=== PATIENT | male | born 1950 | race African-American/Black ===

== ENCOUNTER 2022-01-05 16:28 | Emergency (ER) | payer OTHER ==
[2022-01-05 16:40] LABS: Glucose,Whole Blood 56 mg/dL (70-110)
[2022-01-05 16:45] VITALS: BP 146/76; PULSE 68; RESP 16; TEMP 98
== END 2022-01-05 16:47 | disposition left against medical advice (07) ==
LOC: EC 16:28 → SUPCPDRO 16:28 → EC 16:47
DX: Z53.21 Procedure and treatment not carried out due to patient leaving prior to being seen by health care provider (principal)
CPT/HCPCS: 36415; 99499

== ENCOUNTER → 2022-01-24 | Outpatient (CLI) | payer OTHER ==
--- NOTE | 2022-01-26 08:50 | US ---
EXAMINATION TYPE: US arterial LE single level DATE OF EXAM: 01/24/2022 3:14 PM CLINICAL HISTORY: BLE, M79.673 PAIN IN UNSPECIFIED FOOT. pain after walking. History of hypertension and hyperlipidemia. History of diabetes. Doppler Waveforms: Right: Predominantly monophasic Left: Predominantly biphasic Pulse Volume Recording: Pressure Gradients: Ankle-Brachial Indices: Right: NC Left: NC Toe Brachial Indices: Right: 0.39 Left: 0.51 IMPRESSION: Loss of phasicity. Diminished TBI values bilaterally. At least mild peripheral arterial disease in bilateral feet is present . Further workup and follow-up advised.
== END | disposition home or self-care (01) ==
LOC: RADUSWWP 14:07
DX: I70.203 Unspecified atherosclerosis of native arteries of extremities, bilateral legs (principal); I10 Essential (primary) hypertension; E78.5 Hyperlipidemia, unspecified
CPT/HCPCS: 93922

== ENCOUNTER → 2022-04-26 | Day surgery (SDC) | payer OTHER ==
[~2022-04-26] MED LIST: HEPARIN SODIUM,PORCINE 100 UNIT/ML 5 ML VIAL IV ONE; IOPAMIDOL-370 50ML BTL INJ ONE
[2022-04-26 11:35] LABS: Glucose,Whole Blood 146 mg/dL (70-110)
[2022-04-26 11:40] VITALS: BP 210/96; PULSE 90; RESP 16; TEMP 97.7
--- NOTE | 2022-04-26 12:52 | IR ---
Fluoroscopic portogram([facility]). HISTORY: Device malfunction. The patient presented to the CVL with a Caba needle within the port. Preliminary fluoroscopy demonst rated the catheter to be intact. 0.1 minutes of fluoroscopy. One image submitted. Total DAP1.55Gy. cm2. Total air kerma 4.69mGy. IMPRESSION: 1. No obstruction or extravasation. See above.
== END ==
LOC: CATHCVL 11:05
PROVIDERS: ATTEND Radiology Diagnostic Radiology
DX: T82.598A Other mechanical complication of other cardiac and vascular devices and implants, initial encounter (principal); E11.51 Type 2 diabetes mellitus with diabetic peripheral angiopathy without gangrene; Z79.4 Long term (current) use of insulin; J44.9 Chronic obstructive pulmonary disease, unspecified; E78.5 Hyperlipidemia, unspecified; M10.9 Gout, unspecified; Z94.0 Kidney transplant status; Z94.4 Liver transplant status; I74.09 Other arterial embolism and thrombosis of abdominal aorta; E55.9 Vitamin D deficiency, unspecified; B19.20 Unspecified viral hepatitis C without hepatic coma; Z90.49 Acquired absence of other specified parts of digestive tract; Z98.890 Other specified postprocedural states; Z83.3 Family history of diabetes mellitus; Z80.8 Family history of malignant neoplasm of other organs or systems; Z87.891 Personal history of nicotine dependence; Z79.82 Long term (current) use of aspirin; Z79.02 Long term (current) use of antithrombotics/antiplatelets; Z79.899 Other long term (current) drug therapy; Z79.84 Long term (current) use of oral hypoglycemic drugs; Z88.5 Allergy status to narcotic agent; Z88.8 Allergy status to other drugs, medicaments and biological substances
CPT/HCPCS: 36598; 36561; J1642; Q9967

== ENCOUNTER → 2022-12-14 | Outpatient (CLI) | payer OTHER ==
--- NOTE | 2022-12-15 00:07 | CT ---
EXAMINATION TYPE: CT angio abd aorta w/Runoff DATE OF EXAM: 12/14/2022 COMPARISON: None. HISTORY: Pulmonary valve disorder CT DLP: 1441.40 mGycm, Automated Exposure Control for Dose Reduction was Utilized. CONTRAST: CTA scan of the abdomen and pelvis with bilateral lower extremity runoff performed without oral and w ithout and with IV Contrast, patient injected with 80 mL of Isovue 370. Three-D reconstructed images are created on an independent workstation and reviewed. FINDINGS: VASCULAR: Noncalcified images show mild to moderate peripheral plaque in the abdominal aorta with mor e moderate to severe plaque in the iliac arteries and severe calcified plaque in smaller vessels. Pre sence of severe calcified plaque limits evaluation for accurate grading of stenosis. Significant narrowing at the celiac artery origin sagittal image 70 series 15. The moderate periphera l calcified plaque at the SMA without significant stenosis. Patent YARI is seen. Mild to moderate calc ified plaque right renal artery. More severe calcified plaque at proximal left renal artery. Cannot e xclude significant stenosis at this level. No AAA. No significant stenosis in the abdominal aorta. Mo derate to severe mixed plaque in the common and external iliac arteries bilaterally without significa nt focal stenosis. More moderate to severe calcified plaque common femoral artery bilaterally without significant stenos is. There is more mild to moderate peripheral plaque in the right superficial femoral artery. There i s focal significant stenosis and/or complete occlusion near image 266 series 5 with some reconstituti on and then complete occlusion over a longer segment in the proximal superficial femoral artery. Ther e is an severe calcified plaque along the superficial femoral artery with areas of significant stenos is extending into the popliteal artery. Similar severe calcified plaque along the left superficial femoral artery with focal area of signific ant stenosis in the distal left superficial femoral artery axial image 356 noted. Severe plaque exten ds into the popliteal artery. Severe calcified plaque with three-vessel flow in the mid legs bilaterally and two-vessel flow in the distal legs bilaterally is seen. LUNG BASES: There is 1.3 cm calcified nodule or benign granuloma right lower lobe axial image 15. The re is 4 mm peripheral noncalcified nodule right lower lobe axial image 14. There is 3 mm calcified pe ripheral right lobe nodule axial image 28. LIVER/GB: Central pneumobilia. Cholecystectomy clips are present. PANCREAS: Mild to moderate generalized atrophy. SPLEEN: No significant abnormality is seen. ADRENALS: No significant abnormality is seen. KIDNEYS: There is small size and cortical thinning to the osage kidneys. There is anterior right pel shayna renal transplant with maintained cortical medullary differentiation. BOWEL: No significant abnormality is seen. PROSTATE/SEMINAL VESICLES: No gross abnormality seen. LYMPH NODES: No greater than 1cm abdominal or pelvic lymph nodes are appreciated. OSSEOUS STRUCTURES: Fixating nails in the bilateral proximal femurs are present. There is moderate to severe disc space narrowing second disc phenomenon at L4-L5 level. There is grade 1 retrolisthesis L 4 on L5.. OTHER: No significant additional abnormality is seen. IMPRESSION: 1. Severe small vessel calcified atherosclerotic change consistent with long-standing end-stage medic al renal disease makes evaluation suboptimal. There is significant focal stenosis in the distal left superficial femoral artery. There are more prominent areas of significant focal stenosis and areas of total occlusion in the right superficial femoral artery noted.
== END | disposition home or self-care (01) ==
LOC: RADCTMAIN 08:47
PROVIDERS: ATTEND Surgery
DX: I70.213 Atherosclerosis of native arteries of extremities with intermittent claudication, bilateral legs (principal)
CPT/HCPCS: 75635; Q9967

== ENCOUNTER → 2023-04-03 | Day surgery (SDC) | payer OTHER ==
[~2023-04-03] MED LIST changes: +ALPRAZolam 0.25 MG TAB PO PRN; +ASPIRIN 325 MG TAB PO PRN; +HEPARIN SODIUM,PORCINE (1 ML) 2,500 UNIT in SODIUM CHLORIDE 0.9% 250 ML IRRIGATION PRN; +HEPARIN SODIUM,PORCINE 10,000 UNIT in SODIUM CHLORIDE 0.9% 1,000 ML IRRIGATION PRN; -HEPARIN SODIUM,PORCINE 100 UNIT/ML 5 ML VIAL IV ONE; +IOPAMIDOL-370 100ML BTL INJ ONE; -IOPAMIDOL-370 50ML BTL INJ ONE; +LIDOCAINE 1% INJ 10MG/ML (30 ML VIAL-PF) SQ ONE; +MIDAZOLAM 2 MG/2 ML VIAL IVP ONE; +SODIUM CHLORIDE 0.9% 1,000 ML in EMPTY BAG 1 BAG IV ONE; +SODIUM CHLORIDE 0.9% 500 ML 500 ML IV ONE; +ZOLPIDEM 5 MG TAB PO PRN; +fentaNYL (PF) 50 MCG/1 ML VIAL IVP ONE; +fentaNYL (PF) 50 MCG/ML 2 ML AMP ONE; +hydrALAZINE HCL 20 MG/ML 1 ML VIAL IVP STA; +hydrALAZINE HCL 20 MG/ML 1 ML VIAL ONE
[2023-04-03 06:30] LABS: Glucose,Whole Blood 178 mg/dL (70-110)
[2023-04-03 06:45] LABS: Basophils % (A) 1 %; Eosinophils # (A) 0.2 k/uL (0-0.7); Eosinophils % (A) 5 %; HCT 40.4 % (39.0-53.0); HGB 12.7 gm/dL (13.0-17.5); Hypochromasia Slight; Lymphocytes # (A) 1.2 k/uL (1.0-4.8); Lymphocytes % (A) 28 %; MCH 30.1 pg (25.0-35.0); MCHC 31.5 g/dL (31.0-37.0); MCV 95.5 fL (80.0-100.0); Mean Platelet Volume 7.3; Monocytes # (A) 0.2 k/uL (0-1.0); Monocytes % (A) 5 %; Neutrophils # (A) 2.7 k/uL (1.3-7.7); Neutrophils % (A) 61 %; Platelet Count 158 k/uL (150-450); RBC 4.23 m/uL (4.30-5.90); RDW 13.6 % (11.5-15.5); WBC 4.5 k/uL (3.8-10.6)
[2023-04-03 07:06] VITALS: TEMP 98.2
[2023-04-03 08:02] LABS: African American GFR (CKD) 39 (>60 ml/min/1.73 sqM); Anion Gap 14 mmol/L; Blood Urea Nitrogen 36 mg/dL (9-20); Calcium 8.9 mg/dL (8.4-10.2); Carbon Dioxide 25 mmol/L (22-30); Chloride 104 mmol/L (98-107); Glucose 190 mg/dL (74-99); Non-African American GFR(CKD) 34 (>60 ml/min/1.73 sqM); Sodium 143 mmol/L (137-145)
--- NOTE | 2023-04-03 11:11 | IR ---
EXAMINATION TYPE: IR angio abdominal w runoff DATE OF EXAM: 04/03/2023 FLUOROSCOPY Leg pain, 19.1m/19.0 mGycm2 DAP, Lt gr angioseal. 111 images provided.
--- NOTE | 2023-04-03 12:12 | P.OP ---
Date of Procedure: 04/03/23 Preoperative Diagnosis: 1: Right superficial femoral artery occlusion with secondary lifestyle limiting right calf claudication. Postoperative Diagnosis: Same, PLUS 50-60% stenosis right common femoral artery. Procedure(s) Performed: 1: Ultrasound-guided cannulation left common femoral artery. 2: Selective catheterization contralateral femoral artery. 3: Right femoral angiogram. Anesthesia: local (With IV sedation.) Usability Engineer #1: Gino Buenrostro Estimated Blood Loss (ml): 20 Urine output (ml): 0 Pathology: none sent Condition: stable Disposition: no change Indications for Procedure: Patient is a 72-year-old male with history of bilateral calf claudication which severely limits his activities of daily living. Physical examination revealed femoral pulses to be intact bilaterally while the popliteal, DP and PT pulses are absent on the right. He had undergone CT angiogram of the abdominal, pelvic and lower extremity vessels. This demonstrated approximately 60 mm occlusion of the right superficial femoral artery. This was felt to be amenable to percutaneous intervention. We discussed percutaneous revascularization and the possibility of inability to complete the procedure versus surgical bypass. Patient wished procedure with attempt at percutaneous intervention. The procedure, risk and benefits were discussed and all questions were answered to patient's satisfaction. Consent form was signed. Description of Procedure: Patient was brought to the special procedure suite. Both groins were sterilely prepped and draped in usual manner. Patient did receive intravenously administered and Versed for moderate conscious sedation purposes. Ultrasound was utilized to identify the left common femoral artery. 1% Xylocaine was utilized for local anesthesia is overlying the left common femoral artery. Through this anesthetized area with the aid of ultrasound a micropuncture needle was utilized to cannulate the artery. Once cannulated Softip guidewire is advanced into the iliac system. The needle was withdrawn and a micropuncture sheath and dilator advanced over the guidewire. Guidewire and dilator withdrawn and a 0.035 inch guidewire was advanced through the dilator. The dilator was withdrawn and a 6-Italian sheath was advanced over the dilator. Guidewire and catheter combination were utilized to select the right common femoral artery. Right femoral angiogram was performed. This demonstrated proximal a 50-60% stenosis of the right common femoral artery. Additionally this demonstrated occluded right superficial femoral artery. A stiff Glidewire was advanced through the catheter and catheter was withdrawn as was the 6-Italian sheath and exchanged for 7-Italian up and over catheter. Utilizing multiple guidewire and catheter combinations including quick cross in multiple diameter and types of guidewires we were unable to successfully cross the lesion in the procedure was abandoned. Was felt the patient would be best served from attempted atherectomy from a pedal pulse or possibly a surgical bypass. Patient tolerated the procedure well. The sheath was withdrawn and the puncture wound closed with a Angio-Seal device. Total fluoroscopy time: 19.1 minutes. Total moderate conscious sedation time: 83 minutes. Plan - Discharge Summary Discharge Rx Participant: No New Discharge Prescriptions: No Action Timolol Maleate/Pf [Timoptic 0.25% Ocudose] 1 drop BOTH EYES BID Tacrolimus [Prograf] 2 mg PO Q12H Aspirin 81 mg PO QAM ursodioL [Ursodiol] 300 mg PO TID lamiVUDine [Epivir] 100 mg PO QAM carvediloL [Coreg] 6.25 mg PO BID Latanoprost [Latanoprost 0.005%] 1 drop BOTH EYES HS INSULIN ASPART (NovoLOG) [NovoLOG (formulary)] 0 unit SQ ACHS Atorvastatin Calcium [Lipitor] 160 mg PO HS Stool Softner 1 tab PO DAILY PRN PRN Reason: Constipation Insulin Glargine,Hum.rec.anlog [Lantus Solostar Pen] 30 units SQ HS Acetaminophen [Tylenol] 325 mg PO Q6H PRN PRN Reason: Pain hydrALAZINE HCL 75 mg PO TID predniSONE 2 mg PO QAM mycophenolate mofetiL [Cellcept] 250 mg PO BID Omeprazole 20 mg PO QAM NIFEdipine [Adalat CC] 60 mg PO BID Calcium Carbonate/Vitamin D3 [Calcium 500 mg-Vit D3 5 mcg (200 Unit)] 1.5 tab PO QAM allopurinoL 100 mg PO QAM Magnesium 500 mg PO QAM Discharge Medication List Timolol Maleate/Pf [Timoptic 0.25% Ocudose] 1 drop BOTH EYES BID 07/05/15 [History] Aspirin 81 mg PO QAM 04/21/22 [History] Atorvastatin Calcium [Lipitor] 160 mg PO HS 04/21/22 [History] Calcium Carbonate/Vitamin D3 [Calcium 500 mg-Vit D3 5 mcg (200 Unit)] 1.5 tab PO QAM 04/21/22 [History] INSULIN ASPART (NovoLOG) [NovoLOG (formulary)] 0 unit SQ ACHS 04/21/22 [History] Latanoprost [Latanoprost 0.005%] 1 drop BOTH EYES HS 04/21/22 [History] NIFEdipine [Adalat CC] 60 mg PO BID 04/21/22 [History] Omeprazole 20 mg PO QAM 04/21/22 [History] Tacrolimus [Prograf] 2 mg PO Q12H 04/21/22 [History] carvediloL [Coreg] 6.25 mg PO BID 04/21/22 [History] hydrALAZINE HCL 75 mg PO TID 04/21/22 [History] lamiVUDine [Epivir] 100 mg PO QAM 04/21/22 [History] mycophenolate mofetiL [Cellcept] 250 mg PO BID 04/21/22 [History] predniSONE 2 mg PO QAM 04/21/22 [History] ursodioL [Ursodiol] 300 mg PO TID 04/21/22 [History] Acetaminophen [Tylenol] 325 mg PO Q6H PRN 03/29/23 [History] Insulin Glargine,Hum.rec.anlog [Lantus Solostar Pen] 30 units SQ HS 03/29/23 [History] Magnesium 500 mg PO QAM 03/29/23 [History] Stool Softner 1 tab PO DAILY PRN 03/29/23 [History] allopurinoL 100 mg PO QAM 03/29/23 [History] Follow up Appointment(s)/Referral(s): Gino Buenrostro DO [Doctor of Osteopathic Medicine] - 04/20/23 9:30 am Patient Instructions/Handouts: Moderate Sedation (DC), Angiogram (DC), Angio- Seal (DC) Activity/Diet/Wound Care/Special Instructions: No lifting/pushing/pulling greater than 10lbs for at least 3 days. Avoid frequent use of full flight of stairs for 3 days. Remove dressing from left groin tomorrow morning. No need to re-dress. You may shower tomorrow after dressing removal. No prolonged soaking for 3 days (such as swim or tub). You may drive Wed.
[2023-04-03 17:33] VITALS: BP 203/91; PULSE 64; RESP 16
== END ==
LOC: CATHCVL 05:47
PROVIDERS: ATTEND Surgery
DX: I70.211 Atherosclerosis of native arteries of extremities with intermittent claudication, right leg (principal); I77.1 Stricture of artery; I48.91 Unspecified atrial fibrillation; K74.60 Unspecified cirrhosis of liver; E11.22 Type 2 diabetes mellitus with diabetic chronic kidney disease; I12.0 Hypertensive chronic kidney disease with stage 5 chronic kidney disease or end stage renal disease; N18.6 End stage renal disease; M10.9 Gout, unspecified; K75.9 Inflammatory liver disease, unspecified; E78.5 Hyperlipidemia, unspecified; Z79.4 Long term (current) use of insulin; Z79.82 Long term (current) use of aspirin; Z79.899 Other long term (current) drug therapy
CPT/HCPCS: 36247; 75710; 76937; 80048; 85025; C1894; C1760; C1769 ×6; C1887 ×2; J2250; J0360; J2001; Q9967; J3010

== ENCOUNTER 2023-05-31 05:42 | Inpatient (IN) | payer OTHER ==
[2023-05-25 14:24] VITALS: BMI 26.7
[~2023-05-31 05:42] MED LIST changes: -ALPRAZolam 0.25 MG TAB PO PRN; -ASPIRIN 325 MG TAB PO PRN; -HEPARIN SODIUM,PORCINE (1 ML) 2,500 UNIT in SODIUM CHLORIDE 0.9% 250 ML IRRIGATION PRN; -HEPARIN SODIUM,PORCINE 10,000 UNIT in SODIUM CHLORIDE 0.9% 1,000 ML IRRIGATION PRN; -IOPAMIDOL-370 100ML BTL INJ ONE; +LIDOCAINE 1% (10MG/ML) FOR IV START INTRADERMA PRN; -LIDOCAINE 1% INJ 10MG/ML (30 ML VIAL-PF) SQ ONE; -MIDAZOLAM 2 MG/2 ML VIAL IVP ONE; -SODIUM CHLORIDE 0.9% 1,000 ML in EMPTY BAG 1 BAG IV ONE; -SODIUM CHLORIDE 0.9% 500 ML 500 ML IV ONE; -ZOLPIDEM 5 MG TAB PO PRN; -fentaNYL (PF) 50 MCG/1 ML VIAL IVP ONE; -fentaNYL (PF) 50 MCG/ML 2 ML AMP ONE; -hydrALAZINE HCL 20 MG/ML 1 ML VIAL IVP STA; -hydrALAZINE HCL 20 MG/ML 1 ML VIAL ONE
[2023-05-31] MEDS: LACTATED RINGERS 1,000 ML IV SCH (06:20)
[2023-05-31 07:14] LABS: Glucose,Whole Blood 116 mg/dL (70-110)
[2023-05-31] MEDS: DEXAMETHASONE SOD PHOSPHATE 4 MG/ML 1 ML VIAL IV ONE (07:27)
[2023-05-31] MEDS: ONDANSETRON 4 MG/2 ML VIAL IVP ONE (07:27)
--- NOTE | 2023-05-31 08:15 | P.ANPRN ---
Procedure Note - Anesthesia - Invasive Line Left Central Line Time Out Performed: Yes Date of Procedure: 05/31/23 Time of Procedure: 07:15 Location of Patient: PreOp Preparation: Sterile Prep Central Line Location: Internal Jugular Ultrasound Used: Yes Purpose - Visualization and Identification of Vasculature: Yes Image Stored and Saved: Yes Narrative: Invasive line placement per sterile protocol utilized. CxR checked.
[2023-05-31 08:22] LABS: African American GFR (CKD) 35 (>60 ml/min/1.73 sqM); Non-African American GFR(CKD) 30 (>60 ml/min/1.73 sqM)
[2023-05-31] MEDS: ceFAZolin 4 GM in SODIUM CHLORIDE 0.9% 1,000 ML IRRIGATION ONE (08:32)
[2023-05-31] MEDS: HEPARIN SODIUM,PORCINE 10,000 UNIT in SODIUM CHLORIDE 0.9% 1,000 ML IRRIGATION ONE (08:32)
--- NOTE | 2023-05-31 08:47 | XR ---
EXAMINATION TYPE: XR chest 1V DATE OF EXAM: 05/31/2023 COMPARISON: 07/05/2015 HISTORY: 72-year-old male Central line placement TECHNIQUE: Single frontal view of the chest is obtained. FINDINGS: Left CVC tip at the lower left brachiocephalic vein. Left anterior chest wall injection po rt with catheter tip at the upper right atrium. Low lung volumes and crowded vascular markings and ac centuating heart size, likely upper limits of normal. Calcified granuloma at the right base. Some str miguelina atelectasis at the left base. No consolidation or pleural effusion. IMPRESSION: Left anterior chest wall injection port at the upper right atrium and left IJ CVC tip at the lower le ft brachiocephalic vein. Some hypoventilatory changes but otherwise without acute process seen.
[2023-05-31] MEDS: THROMBIN (BOVINE) 5,000 UNIT VIAL TOPICAL ONE (09:34)
[2023-05-31] MEDS: GELATIN SPONGE,ABSORB (LARGE) 1 EACH SPONGE TOPICAL ONE (09:34)
--- NOTE | 2023-05-31 11:46 | P.OP ---
Date of Procedure: 05/31/23 Preoperative Diagnosis: 1: Right superficial femoral artery occlusion with secondary lifestyle limiting right calf claudication. Postoperative Diagnosis: Same plus hemodynamically severe right common femoral artery stenosis. Procedure(s) Performed: 1: Right femoral to popliteal bypass graft utilizing cadaveric vein. 2: Right common femoral thromboendarterectomy. Anesthesia: ADRIANNAA Surgeon: Gino Buenrostro Estimated Blood Loss (ml): 200 IV fluids (ml): 1,200 Urine output (ml): 750 Pathology: none sent Condition: stable Disposition: floor Indications for Procedure: Patient is a 72-year-old male who had presented with complaint of right lower extremity lifestyle limiting claudication. Physical examination revealed femoral pulse to be intact with a popliteal, DP and PT pulses were absent. CT angiography demonstrated significantly calcified vessels with a right SFA occlusion. Attempt at atherectomy was not successful. As such the patient is now offered surgical bypass. The patient is a diabetic as well as a transplant patient and is concerned about the possibility of infectious related issues. We discussed in situ vein bypass graft but the patient was concerned about multiple counterincisions typically needed for an in situ and preferred to have 2 separate incisions and thus the need for cadaveric vein. The procedure, risks and benefits were discussed with the patient. All questions were answered patient's satisfaction. Description of Procedure: Patient brought the operating placed in the supine position administered general endotracheal anesthesia administered by the department anesthesiology. Vogel catheter was placed to gravity drainage. The right hemipelvic area as well as the right lower extremity was sterilely prepped and draped in usual manner. The patient did receive intravenously administered prophylactic antibiotics in the perioperative phase. A skin incision was made overlying the right femoral artery and carried down through subcutaneous tissues. Hemostasis was achieved using electrocautery. The lymphatic layer was divided laterally and swept medially exposing the femoral sheath. This was incised and the proximal portion of the SFA was identified. This was dissected free of investing tissues and encircled with Vesseloops. The dissection was then carried cephalad where the profundus was identified dissected free of investing tissues and encircled Vesseloops. Dissection was carried to the inguinal ligament where the common femoral artery was dissected free of investing tissues and encircled with Vesseloops. Wound was then packed with antibiotic soaked gauze. Attention was turned to the proximal calf level where along the medial aspect a skin incision was made carried down through skin and subcutaneous tissues. Care was taken to avoid the great saphenous vein. Entrance into the popliteal space was gained in the distal popliteal artery as well as the popliteal vein were identified. The artery was dissected free of the vein and encircled Vesseloops. Cadaveric vein had been previously prepared and was tunneled in a subsartorial manner between the 2 incisions. Care was taken to avoid any twisting as the vein was marked to help with orientation. The Wound was then packed with antibiotic soaked gauze. Patient received intravenously administered heparin and after adequate circulation time the Vesseloops around the profundus and superficial femoral arteries were drawn closed and the very distal portion of the external iliac artery was then clamped. ACT's were drawn and additional doses of heparin were administered throughout the case based on ACT values. Longitudinal arteriotomy in the common femoral artery was made beginning at the origin of the superficial femoral artery extending up to the distal external i liac artery. Bulky plaque was encountered and thromboendarterectomy was then performed of the common femoral artery. This resulted in excellent backbleeding through the profundus. The luminal surface was inspected for any loose or free- floating material and this was removed. Arteriotomy closure was completed with 5-0 Prolene suture with enough length left distally for anastomosis with the vein. The vein was spatulated to match arteriotomy and end to side anastomosis between the vein graft and the artery was performed with 5-0 Prolene suture. Just prior to completion of the anastomotic line the profundus was backbled and the common femoral flushed and no thrombus was retrieved. The anastomotic line was completed and the graft was occluded. The anastomotic line was then tested. 2 points of leak were identified and these were controlled with 6-0 Prolene suture.. The distal wound was exposed. The Vesseloops surrounding the popliteal artery were drawn closed and a longitudinal arteriotomy was made extended with Khalil scissors. The artery was flushed. The vein graft was spatulated to the appropriate size after being cut to the appropriate length. End-to-side anastomosis between the artery and the vein graft was performed with 6-0 Prolene suture. Once again just prior to completion of the anastomotic line the vein graft was flushed and the artery backbled and no thrombus was retrieved. The anastomotic line was completed and flow was restored through the vein graft into the popliteal artery. Excellent pulsatile flow was identified on physical examination as well as on Doppler evaluation. Both wounds were inspected for hemostasis. Hemostasis was controlled. Both wounds were irrigated with antibiotic-containing solution. Deep tissues were closed in multiple layers proximally with 3-0 Vicryl suture. Dermis was reapproximated 4-0 Monocryl placed in a running intradermal fashion. The popliteal wound was closed with 3-0 Vicryl for deep tissue and 4-0 Monocryl placed in running intradermal fashion. Appropriate dressings were applied. Patient tolerated the procedure well, awoke without apparent complication was transferred to the recovery area in satisfactory and stable condition.
[2023-05-31] MEDS: HYDROmorphone 0.5 MG/0.5 ML SYRINGE IVP PRN (12:16)
[2023-05-31] MEDS: LACTATED RINGERS 1,000 ML IV ONE (12:29)
[2023-05-31 12:39] LABS: Glucose,Whole Blood 204 mg/dL (70-110)
[2023-05-31] MEDS: hydrALAZINE HCL 20 MG/ML 1 ML VIAL IVP ONE ×2 (14:24→14:50)
[2023-05-31 16:39] LABS: Glucose,Whole Blood 233 mg/dL (70-110)
[2023-05-31] MEDS ORDERED: ACETAMINOPHEN TAB 325 MG TAB PO PRN (16:50)
[2023-05-31] MEDS: carvediloL 3.125 MG TAB PO SCH (16:55)
[2023-05-31] MEDS ORDERED: DEXTROSE 50% SYRINGE 50 ML IVP PRN ×2 (17:26)
[2023-05-31] MEDS: INSULIN ASPART (NovoLOG) 100 UNIT/ML VIAL SQ SCH (17:43)
[2023-05-31] MEDS: INSULIN ASPART (NovoLOG) 100 UNIT/ML VIAL SQ ONE (18:01)
--- NOTE | 2023-05-31 18:28 | P.CONS ---
History of Present Illness - Reason for Consult Consult date: 05/31/23 renal and liver transplant - History of Present Illness Patient is a 72-year-old male with BPH, carotid stenosis, cirrhosis, diabetes, end-stage renal disease status post renal and liver transplant no longer requiring hemodialysis, glaucoma, hepatitis C, dyslipidemia, hypertension, osteoarthritis, and vitamin D deficiency who presented for elective right femoral to popliteal bypass with right common femoral thromboendarterectomy. Postoperatively the patient was hypertensive and required multiple doses of hydralazine. He was also given his home dose of nifedipine. Patient seen and examined at bedside. He is doing well. He is having some pain in his right leg. He denies chest pain, shortness of breath, nausea, vomiting. He has been using a cane at home. He recently was transitioned to crestor from [employer] due to interaction with [employer]. No recent rejection issue, Cr has been stable and liver fct has been stable. No recent changes in tacro and cellcept. Vital signs reviewed General: nontoxic, no distress, appears at stated age Derm: warm, dry Eyes: EOMI, no lid lag, anicteric sclera, pupils equal round reactive to light ENT: Nose and ears atraumatic Cardiovascular: S1S2 reg, no murmur, no edema Lungs: clear to auscultation bilateral, no rhonchi, no rales, no wheeze, no accessory muscle use Abdominal: soft, nontender to palpation, no guarding Ext: no gross muscle atrophy, no contractures Neuro: CN II-XII grossly intact, No focal neuro deficits Psych: Alert, oriented, appropriate affect Assessment/Plan: 72-year-old male status postright thumb pop bypass Immunocompromised s/p renal and liver transplant -hepatitis C and hemochromatosis -Tacrolimus 10 mg at night and 15 mg 3 in the morning, CellCept 250 mg twice daily, Prednisone 2 mg daily -Ursodiol 300 mg 3 times daily -Follows with [facility] Hypertension -Resume Coreg 9.375 mg twice daily, nifedipine 60 mg twice daily, hydralazine 75 mg 3 times daily - follow BP Diabetes mellitus insulin requiring - Sliding scale insulin, novolog 3 units TID - Levemir 26 units at night - follow BS Dyslipidemia -Due to interactions will bring in Crestor from home Imaging: Chest x-ray: Left anterior chest wall port in the right atrium and left IJ CVC tip. Data Review: Preop hemoglobin 11.3, preop creatinine 2.14 Thank you for allowing us to participate in the care of this pleasant patient. Do not hesitate to contact us with questions. Someone can be reached from the [facility] hospitalist group all hours of the day at [phone] or via [employer]. This dictation was prepared using [employer] voice recognition software. Though every attempt is made to correct errors during dictation some may still exist. N Past Medical History Past Medical History: Diabetes Mellitus, GERD/Reflux, Hyperlipidemia, Hypertension, Liver Disease, Renal Disease, Vascular Disorder Additional Past Medical History / Comment(s): liver/kidney failure with transplant at [facility] in 2015, IDDM type II, PVD, gout, left chest port. History of Any Multi-Drug Resistant Organisms: None Reported Past Surgical History: Cholecystectomy, Orthopedic Surgery Additional Past Surgical History / Comment(s): kidney and liver transplant september 2015, rt rotator cuff, bilateral hip fractures/surgery, ERCP with stent/since r emoved, left chest port. Past Anesthesia/Blood Transfusion Reactions: No Reported Reaction Past Psychological History: No Psychological Hx Reported Additional Psychological History / Comment(s): . Smoking Status: Former smoker Past Alcohol Use History: None Reported Additional Past Alcohol Use History / Comment(s): quit smoking 1982, hx of 1 ppd. Past Drug Use History: Heroin Additional Drug Use History / Comment(s): 1982 last used - Past Family History Mother Family Medical History: Diabetes Mellitus Father Family Medical History: No Reported History Brother(s) Family Medical History: Diabetes Mellitus Sister(s) Family Medical History: Diabetes Mellitus Daughter(s) Family Medical History: No Reported History Medications and Allergies Home Medications Medication Instructions Recorded Confirmed Type Timolol Maleate/Pf [Timoptic 0.25% 1 drop BOTH EYES BID 07/05/15 05/31/23 History Ocudose] Aspirin 81 mg PO QAM 04/21/22 05/31/23 History INSULIN ASPART (NovoLOG) [NovoLOG 0 unit SQ ACHS 04/21/22 05/31/23 History (formulary)] Latanoprost [Latanoprost 0.005%] 1 drop BOTH EYES HS 04/21/22 05/31/23 History NIFEdipine [Adalat CC] 60 mg PO BID 04/21/22 05/31/23 History Omeprazole 20 mg PO QAM 04/21/22 05/31/23 History carvediloL [Coreg] 1.5 tab PO BID 04/21/22 05/31/23 History hydrALAZINE HCL 75 mg PO TID 04/21/22 05/31/23 History lamiVUDine [Epivir] 100 mg PO QAM 04/21/22 05/31/23 History mycophenolate mofetiL [Cellcept] 250 mg PO BID 04/21/22 05/31/23 History predniSONE 2 mg PO QAM 04/21/22 05/31/23 History ursodioL [Ursodiol] 300 mg PO TID 04/21/22 05/31/23 History Acetaminophen [Tylenol] 325 mg PO Q6H PRN 03/29/23 03/29/23 History Insulin Glargine,Hum.rec.anlog 30 units SQ HS 03/29/23 05/31/23 History [Lantus Solostar Pen] Magnesium 500 mg PO DAILY 03/29/23 05/31/23 History Stool Softner 1 tab PO DAILY PRN 03/29/23 05/31/23 History allopurinoL 100 mg PO QAM 03/29/23 05/31/23 History New Cholesterol Rx 1 dose PO DAILY 05/25/23 History Prevagen Memory Supplement 1 dose PO DIRECTED 05/25/23 History Tacrolimus [Prograf] 10 mg PO HS 05/25/23 05/31/23 History Tacrolimus [Prograf] 15 mg PO QAM 05/25/23 05/25/23 History Vitamin D (Unknown Dose) 1 dose PO DIRECTED 05/25/23 History Allergies Allergy/AdvReac Type Severity Reaction Status Date / Time hydrocodone AdvReac Unknown Verified 05/31/23 08:16 morphine AdvReac Unknown Verified 05/31/23 08:15 Physical Exam Osteopathic Statement: *. No significant issues noted on an osteopathic structural exam other than those noted in the History and Physical/Consult. Vitals: Vital Signs Temp Pulse Pulse Resp BP BP BP 05/31/23 16:46 97.8 F 80 18 197/85 186/83 05/31/23 15:31 83 16 151/79 05/31/23 15:00 67 16 150/68 05/31/23 14:46 77 16 190/89 05/31/23 14:34 180/84 05/31/23 14:31 68 16 206/87 05/31/23 14:11 58 L 16 208/91 05/31/23 13:44 71 164/76 05/31/23 13:15 61 166/80 05/31/23 12:55 65 164/72 05/31/23 12:35 05/31/23 12:32 71 16 156/68 05/31/23 12:26 73 16 159/74 05/31/23 12:17 74 16 177/82 05/31/23 12:00 74 16 173/80 05/31/23 07:55 71 18 174/81 05/31/23 06:52 98.3 F 70 20 198/92 Pulse Ox 05/31/23 16:46 98 05/31/23 15:31 96 05/31/23 15:00 96 05/31/23 14:46 96 05/31/23 14:34 05/31/23 14:31 96 05/31/23 14:11 95 05/31/23 13:44 100 05/31/23 13:15 100 05/31/23 12:55 100 05/31/23 12:35 99 05/31/23 12:32 100 05/31/23 12:26 100 05/31/23 12:17 100 05/31/23 12:00 100 05/31/23 07:55 98 05/31/23 06:52 99 Intake and Output 05/31/23 05/31/23 05/31/23 06:59 14:59 22:59 Intake Total 2452 240 Output Total 1650 525 Balance 802 -285 Intake: IV 2452 Oral 240 Output: Urine 1450 525 Estimated Blood Loss 200 Other: Voiding Method Indwelling Catheter Weight 86.7 kg 86.7 kg Results CBC & Chem 7: 05/31/23 07:50 Labs: Abnormal Lab Results - Last 24 Hours (Table) 05/31/23 05/31/23 05/31/23 Range/Units 06:55 07:50 12:37 Creatinine 2.14 H (0.66-1.25) mg/dL POC Glucose (mg/dL) 116 H 204 H (70-110) mg/dL 05/31/23 Range/Units 16:37 Creatinine (0.66-1.25) mg/dL POC Glucose (mg/dL) 233 H (70-110) mg/dL
[2023-05-31 20:08] LABS: Glucose,Whole Blood 207 mg/dL (70-110)
[2023-05-31] MEDS: INSULIN DETEMIR (LEVEMIR) 100 UNIT/ML SYR SQ SCH (20:55)
[2023-05-31] MEDS: LATANOPROST 0.005% OPHTH DROPS 2.5 ML BTL BOTH EYES SCH (20:57)
[2023-05-31] MEDS: TIMOLOL 0.25% OPHTH DROPS 5 ML BTL BOTH EYES SCH (20:57)
[2023-05-31] MEDS: TACROLIMUS 1 MG CAP PO SCH (20:58)
[2023-05-31] MEDS: ursodioL 300 MG CAP PO SCH (21:01)
[2023-05-31] MEDS: HYDROcodone/APAP 5-325MG 1 EACH TAB PO PRN (21:08)
[2023-05-31] MEDS: hydrALAZINE HCL 50 MG TAB PO SCH (21:15)
[2023-06-01 06:10] LABS: Glucose,Whole Blood 174 mg/dL (70-110)
[2023-06-01] MEDS: INSULIN ASPART (NovoLOG) 100 UNIT/ML VIAL SQ SCH (06:59)
[2023-06-01] MEDS: predniSONE 1 MG TAB PO SCH (07:40)
[2023-06-01] MEDS: allopurinoL 100 MG TAB PO SCH (07:40)
[2023-06-01] MEDS: MAGNESIUM OXIDE 400 MG TAB PO SCH (07:40)
[2023-06-01] MEDS: PANTOPRAZOLE 40 MG TABLET PO SCH (07:40)
[2023-06-01] MEDS: TACROLIMUS 1 MG CAP PO SCH (07:40)
[2023-06-01 09:21] LABS: HCT 28.3 % (39.0-53.0); Hypochromasia Slight; MCH 30.5 pg (25.0-35.0); MCHC 31.4 g/dL (31.0-37.0); Mean Platelet Volume 7.1; Platelet Count 172 k/uL (150-450); RBC 2.92 m/uL (4.30-5.90); RDW 14.9 % (11.5-15.5); WBC 5.6 k/uL (3.8-10.6)
--- NOTE | 2023-06-01 09:21 | P.DS ---
Providers Date of admission: 05/31/23 05:42 Expected date of discharge: 06/01/23 Attending physician: Gino Buenrostro DO Consults: 05/31/23 14:52 Consult Physician Urgent Consulting Provider: Yessenia Sosa Consult Reason/Comments: Medical managment, hx of kidney/liver transplant Do you want consulting provider notified?: Yes Primary care physician: [facility] Course: This is a pleasant 72-year-old -[place] male with a history of peripheral arterial disease and claudication of the right lower extremity. He has had previous attempt at percutaneous revascularization that failed therefore plan was to undergo right femoral to popliteal bypass. Patient is postop day #1 for right femoral to popliteal bypass and right common femoral artery thrombo endarterectomy. He states pain has been well-managed. He has some discomfort of course over the surgical site. Right lower extremity warm and pink. He denies any shortness of breath, chest pain, abdominal pain, nausea or vomiting. Vogel catheter has been discontinued and patient has voided on his own. He is tolerating his breakfast. He is instructed to get up and ambulate. WBC 5.6 hemoglobin 8.9 platelet count 172,000 sodium 138 potassium 4.2 BUN 39 creatinine 1.8 glucose 172 With proposed discharge this afternoon. Exam General appearance: The patient is alert, oriented, appea. rs in no acute distress. HET: Head is normocephalic and atraumatic. Pupils are equal and reactive. Neck: Supple. Heart: Regular. Lungs: Equal expansion, normal respiratory effort. Abdomen: Soft, nontender, nondistended. Extremities: Normal skin color and turgor. Warm to the touch, with good capillary refill. Neurological: No focal deficits. Assessment 1. Right lower extremity peripheral arterial disease with life limiting claudication status post femoral-popliteal bypass and right common femoral artery thromboendarterectomy 2. Immunocompromise status post renal liver transplant 3. Diabetes mellitus 4. Hypertension 5. Dyslipidemia Plan 1. Patient encouraged to ambulate 2. Urinary catheter discontinued 3. Continue with pain management 4. Medical management per primary medical team 5. Plan for discharge this afternoon. Patient will have repeat patient CBC, to follow-up with primary care physician 6. Discharge instructions reviewed with patient The impression and plan of care has been dictated as directed. I performed a history and examination of this patient, discussed the same with the dictator. I agree with the dictator's note ,documented as a scribe. Any additional findings or plans will be noted. Procedures: 1: Right femoral to popliteal bypass graft utilizing cadaveric vein. 2: Right common femoral thromboendarterectomy. Patient Condition at Discharge: Stable Plan - Discharge Summary Discharge Rx Participant: No New Discharge Prescriptions: New HYDROcodone/APAP 5-325MG [[place] 5-325] 1 each PO Q6HR PRN #12 tab PRN Reason: Pain Clopidogrel [Plavix] 75 mg PO DAILY #30 tab Continue Timolol Maleate/Pf [Timoptic 0.25% Ocudose] 1 drop BOTH EYES BID Aspirin 81 mg PO QAM ursodioL [Ursodiol] 300 mg PO TID lamiVUDine [Epivir] 100 mg PO QAM carvediloL [Coreg] 1.5 tab PO BID Latanoprost [Latanoprost 0.005%] 1 drop BOTH EYES HS INSULIN ASPART (NovoLOG) [NovoLOG (formulary)] 0 unit SQ ACHS Stool Softner 1 tab PO DAILY PRN PRN Reason: Constipation Insulin Glargine,Hum.rec.anlog [Lantus Solostar Pen] 30 units SQ HS Acetaminophen [Tylenol] 325 mg PO Q6H PRN PRN Reason: Pain Tacrolimus [Prograf] 3 mg PO QAM Vitamin D (Unknown Dose) 1 dose PO DIRECTED hydrALAZINE HCL 75 mg PO TID predniSONE 2 mg PO QAM mycophenolate mofetiL [Cellcept] 250 mg PO BID Omeprazole 20 mg PO QAM NIFEdipine [Adalat CC] 60 mg PO BID allopurinoL 100 mg PO QAM Magnesium 500 mg PO DAILY Tacrolimus [Prograf] 2 mg PO HS New Cholesterol Rx 1 dose PO DAILY Prevagen Memory Supplement 1 dose PO DIRECTED Discharge Medication List Timolol Maleate/Pf [Timoptic 0.25% Ocudose] 1 drop BOTH EYES BID 07/05/15 [History] Aspirin 81 mg PO QAM 04/21/22 [History] INSULIN ASPART (NovoLOG) [NovoLOG (formulary)] 0 unit SQ ACHS 04/21/22 [History] Latanoprost [Latanoprost 0.005%] 1 drop BOTH EYES HS 04/21/22 [History] NIFEdipine [Adalat CC] 60 mg PO BID 04/21/22 [History] Omeprazole 20 mg PO QAM 04/21/22 [History] carvediloL [Coreg] 1.5 tab PO BID 04/21/22 [History] hydrALAZINE HCL 75 mg PO TID 04/21/22 [History] lamiVUDine [Epivir] 100 mg PO QAM 04/21/22 [History] mycophenolate mofetiL [Cellcept] 250 mg PO BID 04/21/22 [History] predniSONE 2 mg PO QAM 04/21/22 [History] ursodioL [Ursodiol] 300 mg PO TID 04/21/22 [History] Acetaminophen [Tylenol] 325 mg PO Q6H PRN 03/29/23 [History] Insulin Glargine,Hum.rec.anlog [Lantus Solostar Pen] 30 units SQ HS 03/29/23 [History] Magnesium 500 mg PO DAILY 03/29/23 [History] Stool Softner 1 tab PO DAILY PRN 03/29/23 [History] allopurinoL 100 mg PO QAM 03/29/23 [History] New Cholesterol Rx 1 dose PO DAILY 05/25/23 [History] Prevagen Memory Supplement 1 dose PO DIRECTED 05/25/23 [History] Tacrolimus [Prograf] 2 mg PO HS 05/25/23 [History] Tacrolimus [Prograf] 3 mg PO QAM 05/25/23 [History] Vitamin D (Unknown Dose) 1 dose PO DIRECTED 05/25/23 [History] Clopidogrel [Plavix] 75 mg PO DAILY #30 tab 06/01/23 [Rx] HYDROcodone/APAP 5-325MG [[place] 5-325] 1 each PO Q6HR PRN #12 tab 06/01/23 [Rx] Follow up Appointment(s)/Referral(s): Gino Buenrostro DO [Doctor of Osteopathic Medicine] - 2 Weeks [facility] [Primary Care Provider] - 1 Week Patient Instructions/Handouts: Femoropopliteal Bypass (DC) Activity/Diet/Wound Care/Special Instructions: No driving until cleared by surgeon Avoid heavy lifting greater than 10 lbs , pushing, pulling, straining, flights of stairs for 2 weeks ok to shower tomorrow but no baths, pools, soaking in tubs until cleared by surgeon to avoid risk of infection. signs of infection ie: fever, rash, drainage from surgical site, swelling contact doctor or return to ER immediately. Heavy bleeding from surgical site apply firm direct pressure and return to ER. Do not attempt to drive self. low sodium/low fat diet ELEVATE RIGHT LOWER EXTREMITY Discharge Disposition: HOME SELF-CARE
[2023-06-01 09:30] LABS: ALT 15 U/L (4-49); AST 22 U/L (17-59); African American GFR (CKD) 41 (>60 ml/min/1.73 sqM); Alkaline Phosphatase 148 U/L (38-126); Anion Gap 7 mmol/L; Blood Urea Nitrogen 39 mg/dL (9-20); Calcium 8.4 mg/dL (8.4-10.2); Carbon Dioxide 28 mmol/L (22-30); Chloride 103 mmol/L (98-107); Glucose 172 mg/dL (74-99); Magnesium 1.4 mg/dL (1.6-2.3); Non-African American GFR(CKD) 36 (>60 ml/min/1.73 sqM); Potassium 4.2 mmol/L (3.5-5.1); Sodium 138 mmol/L (137-145); Total Bilirubin 0.5 mg/dL (0.2-1.3); Total Protein 5.2 g/dL (6.3-8.2)
[2023-06-01 09:35] LABS: HGB 8.9 gm/dL (13.0-17.5)
[2023-06-01 09:40] VITALS: TEMP 98.1
[2023-06-01] MEDS: LAMIVUDINE 100 MG PO SCH (09:59)
[2023-06-01] MEDS: CLOPIDOGREL 75 MG TAB PO SCH (10:01)
[2023-06-01 11:21] VITALS: BP 130/70; PULSE 81; RESP 16
[2023-06-01 11:22] LABS: Glucose,Whole Blood 226 mg/dL (70-110)
--- NOTE | 2023-06-01 17:24 | P.PN ---
Subjective Progress Note Date: 06/01/23 Patient seen and examined at bedside. He has some pain in his right lower extremity which is well-controlled with the [place]. Denies any chest pain, shortness of breath, lightheadedness, dizziness, nausea, vomiting. Feels comfortable going home. Vital signs reviewed General: Nontoxic, no distress, appears at stated age Cardiovascular: S1S2 reg, no murmur Lungs: CTA bilateral, no rhonchi, no rales, no accessory muscle use Abdominal: Soft, nontender to palpation, no guarding Ext: No gross muscle atrophy, no edema b/l lower extremities, no contractures Neuro: CN II-XI grossly intact, no focal neuro deficits Psych: Alert, oriented, appropriate affect Assessment/Plan: 72-year-old male status post right fem-pop bypass Acute blood loss anemia anticipated outcome of procedure -Patient medically optimized for discharge at the discretion of vascular surgery. Discharge medication reconciliation reviewed. Added for patient [facility] Patient is aware and verbalizes understanding. Immunocompromised s/p renal and liver transplant -hepatitis C and h emochromatosis -Tacrolimus 10 mg at night and 15 mg 3 in the morning, CellCept 250 mg twice daily, Prednisone 2 mg daily -Ursodiol 300 mg 3 times daily -Follows with [facility] Hypertension -Coreg 9.375 mg twice daily, nifedipine 60 mg twice daily, hydralazine 75 mg 3 times daily - follow BP Diabetes mellitus insulin requiring - resume home SSI and leantus on discharge Dyslipidemia -Due to interactions will bring in Crestor from home Imaging: None new Data Review: Labs reviewed from today include CBC and CMP which are remarkable for hemoglobin 8.9, creatinine 1.85, magnesium 1.4. A1c 7.6. Thank you for allowing us to participate in the care of this pleasant patient. Do not hesitate to contact us with questions. Someone can be reached from the [facility] hospitalist group all hours of the day at [phone] or via [employer]. This dictation was prepared using [employer] voice recognition software. Though every attempt is made to correct errors during dictation some may still exist. Objective - Vital Signs Vital signs: Vital Signs Temp 98.1 F 06/01/23 08:00 Pulse 81 06/01/23 11:15 Resp 16 03/07/24 11:15 BP 130/70 06/01/23 11:15 Pulse Ox 95 06/01/23 11:15 FiO2 Intake & Output 05/31/23 06/01/23 06/01/23 18:59 06:59 18:59 Intake Total 2692 540 462 Output Total 2175 1025 200 Balance 517 -485 262 Weight 86.7 kg Intake: IV 2452 Oral 240 540 462 Output: Urine 1975 1025 200 Estimated Blood Loss 200 Other: Voiding Method Indwelling Catheter Indwelling Catheter Urinal # Voids 1 - Labs CBC & Chem 7: 06/01/23 08:43 06/01/23 08:43 Labs: Abnormal Lab Results - Last 24 Hours (Table) 05/31/23 06/01/23 06/01/23 Range/Units 20:07 06:09 08:43 RBC (4.30-5.90) m/uL Hgb (13.0-17.5) gm/dL Hct (39.0-53.0) % BUN (9-20) mg/dL Creatinine (0.66-1.25) mg/dL Glucose (74-99) mg/dL POC Glucose (mg/dL) 207 H 174 H (70-110) mg/dL Hemoglobin A1c 7.6 H (<=6.0) % Magnesium (1.6-2.3) mg/dL Alkaline Phosphatase (38-126) U/L Total Protein (6.3-8.2) g/dL Albumin (3.5-5.0) g/dL 06/01/23 06/01/23 06/01/23 Range/Units 08:43 08:43 11:20 RBC 2.92 L (4.30-5.90) m/uL Hgb 8.9 L D (13.0-17.5) gm/dL Hct 28.3 L (39.0-53.0) % BUN 39 H (9-20) mg/dL Creatinine 1.85 H (0.66-1.25) mg/dL Glucose 172 H (74-99) mg/dL POC Glucose (mg/dL) 226 H (70-110) mg/dL Hemoglobin A1c (<=6.0) % Magnesium 1.4 L (1.6-2.3) mg/dL Alkaline Phosphatase 148 H (38-126) U/L Total Protein 5.2 L (6.3-8.2) g/dL Albumin 3.0 L (3.5-5.0) g/dL
== END 2023-06-01 12:57 | disposition home or self-care (01) | DRG 253 ==
LOC: 2ORMAIN 05:42 → 3SCARD 15:52
PROVIDERS: ADMIT Surgery; ATTEND Surgery
PROC: 041K0KL Bypass Right Femoral Artery to Popliteal Artery with Nonautologous Tissue Substitute, Open Approach (ICD-10-PCS; principal; 2023-05-31 07:30)
PROC: 04CK0ZZ Extirpation of Matter from Right Femoral Artery, Open Approach (ICD-10-PCS; principal; 2023-05-31 07:30)
DX: E11.51 Type 2 diabetes mellitus with diabetic peripheral angiopathy without gangrene (principal); D62 Acute posthemorrhagic anemia; D84.821 Immunodeficiency due to drugs; I12.0 Hypertensive chronic kidney disease with stage 5 chronic kidney disease or end stage renal disease; Z94.4 Liver transplant status; Z94.0 Kidney transplant status; I97.3 Postprocedural hypertension; I70.211 Atherosclerosis of native arteries of extremities with intermittent claudication, right leg; E11.22 Type 2 diabetes mellitus with diabetic chronic kidney disease; E78.5 Hyperlipidemia, unspecified; I65.29 Occlusion and stenosis of unspecified carotid artery; N40.0 Benign prostatic hyperplasia without lower urinary tract symptoms; H40.9 Unspecified glaucoma; F11.11 Opioid abuse, in remission; M10.9 Gout, unspecified; K21.9 Gastro-esophageal reflux disease without esophagitis; E83.119 Hemochromatosis, unspecified; Z79.624 Long term (current) use of inhibitors of nucleotide synthesis; Z79.4 Long term (current) use of insulin; Z86.19 Personal history of other infectious and parasitic diseases; Z79.82 Long term (current) use of aspirin; Z79.899 Other long term (current) drug therapy; Z83.3 Family history of diabetes mellitus; Z87.891 Personal history of nicotine dependence
CPT/HCPCS: 71045; 80053; 82565; 83036; 83735; 85027; 85730; 86850; 86900; 86901

== ENCOUNTER 2023-06-18 02:46 | Emergency (ER) | payer OTHER ==
[2023-06-18 02:52] LABS: Glucose,Whole Blood 190 mg/dL (70-110)
--- NOTE | 2023-06-18 03:14 | ED ---
Back Pain HPI - General Chief Complaint: Recheck/Abnormal Lab/Rx Stated Complaint: high BP Time Seen by Provider: 06/18/23 02:48 Source: patient, EMS, RN notes reviewed, old records reviewed, Caregiver Mode of arrival: EMS Limitations: no limitations - History of Present Illness Initial Comments: This is a 72-year-old male to the ER for evaluation of back pain severe back pain which has been persistent. Patient is also having elevated blood pressure at home with low blood sugar and has a decreased appetite decreased activity level ever since recent 6 arterial surgery in his right lower extremity by vascular surgery. Patient has had a good outpatient course until today where his back pain has been worse with abnormal vital signs MD Complaint: back pain, fall, other -: hour(s) Similar Symptoms Previously: Yes Place: home Radiation: none, buttocks Severity: moderate Severity scale (1-10): 4 Quality: sharp, dull Consistency: constant Improves With: none Worsens With: none Context: turning/twisting Associated Symptoms: denies other symptoms Treatments Prior to Arrival: other - Related Data Home Medications Medication Instructions Recorded Confirmed Timolol Maleate/Pf [Timoptic 0.25% 1 drop BOTH EYES BID 07/05/15 05/31/23 Ocudose] Aspirin 81 mg PO QAM 04/21/22 05/31/23 INSULIN ASPART (NovoLOG) [NovoLOG 0 unit SQ ACHS 04/21/22 05/31/23 (formulary)] Latanoprost [Latanoprost 0.005%] 1 drop BOTH EYES HS 04/21/22 05/31/23 NIFEdipine [Adalat CC] 60 mg PO BID 04/21/22 05/31/23 Omeprazole 20 mg PO QAM 04/21/22 05/31/23 carvediloL [Coreg] 1.5 tab PO BID 04/21/22 05/31/23 hydrALAZINE HCL 75 mg PO TID 04/21/22 05/31/23 lamiVUDine [Epivir] 100 mg PO QAM 04/21/22 05/31/23 mycophenolate mofetiL [Cellcept] 250 mg PO BID 04/21/22 05/31/23 predniSONE 2 mg PO QAM 04/21/22 05/31/23 ursodioL [Ursodiol] 300 mg PO TID 04/21/22 05/31/23 Acetaminophen [Tylenol] 325 mg PO Q6H PRN 03/29/23 03/29/23 Insulin Glargine,Hum.rec.anlog 30 units SQ HS 03/29/23 05/31/23 [Lantus Solostar Pen] Magnesium 500 mg PO DAILY 03/29/23 05/31/23 Stool Softner 1 tab PO DAILY PRN 03/29/23 05/31/23 allopurinoL 100 mg PO QAM 03/29/23 05/31/23 New Cholesterol Rx 1 dose PO DAILY 05/25/23 Prevagen Memory Supplement 1 dose PO DIRECTED 05/25/23 Tacrolimus [Prograf] 2 mg PO HS 05/25/23 05/31/23 Tacrolimus [Prograf] 3 mg PO QAM 05/25/23 05/31/23 Vitamin D (Unknown Dose) 1 dose PO DIRECTED 05/25/23 Previous Rx's Medication Instructions Recorded Clopidogrel [Plavix] 75 mg PO DAILY #30 tab 06/01/23 HYDROcodone/APAP 5-325MG [[place] 1 each PO Q6HR PRN #12 tab 06/01/23 5-325] Allergies Allergy/AdvReac Type Severity Reaction Status Date / Time hydrocodone AdvReac Unknown Verified 06/18/23 02:49 morphine AdvReac Unknown Verified 06/18/23 02:49 Review of Systems ROS Statement: Those systems with pertinent positive or pertinent negative responses have been documented in the HPI. ROS Other: All systems not noted in ROS Statement are negative. 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 Past Anesthesia/Blood Transfusion Reactions: No Reported Reaction Past Psychological History: No Psychological Hx Reported Smoking Status: Former smoker Past Alcohol Use History: None Reported Past Drug Use History: Heroin - Past Family History Mother Family Medical History: Diabetes Mellitus Father Family Medical History: No Reported History Brother(s) Family Medical History: Diabetes Mellitus Sister(s) Family Medical History: Diabetes Mellitus Daughter(s) Family Medical History: No Reported History General Exam Limitations: no limitations General appearance: alert, in no apparent distress Head exam: Present: atraumatic, normocephalic, normal inspection Eye exam: Present: normal appearance, PERRL, EOMI. Absent: scleral icterus, conjunctival injection, periorbital swelling ENT exam: Present: normal exam, mucous membranes moist Neck exam: Present: normal inspection. Absent: tenderness, meningismus, lymphadenopathy Respiratory exam: Present: normal lung sounds bilaterally. Absent: respiratory distress, wheezes, rales, rhonchi, stridor Cardiovascular Exam: Present: regular rate, normal rhythm, normal heart sounds. Absent: systolic murmur, diastolic murmur, rubs, gallop, clicks GI/Abdominal exam: Present: soft, normal bowel sounds. Absent: distended, tenderness, guarding, rebound, rigid Extremities exam: Present: normal inspection, full ROM, normal capillary refill. Absent: tenderness, pedal edema, joint swelling, calf tenderness Back exam: Present: normal inspection Neurological exam: Present: alert, oriented X3, CN II-XII intact Psychiatric exam: Present: normal affect, normal mood Skin exam: Present: warm, dry, intact, normal color. Absent: rash Course Vital Signs 06/18/23 06/18/23 06/18/23 02:49 02:55 05:41 Temperature 97.6 F Pulse Rate 71 68 75 Respiratory 19 20 20 Rate Blood Pressure 138/90 116/69 146/88 O2 Sat by Pulse 96 97 94 L Oximetry - Reevaluation(s) Reevaluation #1: 06/18/23 03:14 Medical records reviewed Reevaluation #2: 06/18/23 03:14 Patient symptoms unchanged Reevaluation #3: 06/18/23 03:14 Patient informed of results questions answered Reevaluation #4: Was pt. sent in by a medical professional or institution (, PA, BINDERY MANAGER, urgent care, hospital, or correction...) When possible be specific @ -no Did you speak to anyone other than the patient for history (EMS, parent, family, police, friend...)? What history was obtained from this source @ -no Did you review nursing and triage notes (agree or disagree)? Why? @ -agree Are old charts reviewed (outside hosp., previous admission, EMS record, old EKG, old radiological studies, urgent care reports/EKG's, correction records)? Report findings @ -yes Differential Diagnosis (chest pain, altered mental status, abdominal pain women, abdominal pain men, vaginal bleeding, weakness, fever, dyspnea, syncope, headache, dizziness, GI bleed, back pain, seizure, CVA, palpatations, mental health, musculoskeletal)? @ -prior EKG interpreted by me (3pts min.). @ -yes X-rays interpreted by me (1pt min.). @ -no CT interpreted by me (1pt min.). @ -no U/S interpreted by me (1pt. min.). @ -no What testing was considered but not performed or refused? (CT, X-rays, U/S, labs)? Why? @ -none What meds were considered but not given or refused? Why? @ -none Did you discuss the management of the patient with other professionals (professionals i.e. , PA, BINDERY MANAGER, lab, RT, psych nurse, social media sr strategy manager, farm operations technical director, teacher, police or patrol park officer, case checker)? Give summary @ -no Was smoking cessation discussed for >3mins.? @ -no Was critical care preformed (if so, how long)? @ -no Were there social determinants of health that impacted care today? How? (Chip elessness, low income, unemployed, alcoholism, drug addiction, transportation, low edu. Level, literacy, decrease access to med. care, assisted, rehab)? @ -none Was there de-escalation of care discussed even if they declined (Discuss DNR or withdrawal of care, Hospice)? DNR status @ -no What co-morbidities impacted this encounter? (DM, HTN, Smoking, COPD, CAD, Cancer, CVA, ARF, Chemo, Hep., AIDS, mental health diagnosis, sleep apnea, morbid obesity)? @ -none Was patient admitted / discharged? Hospital course, mention meds given and route, prescriptions, significant lab abnormalities, going to OR and other pertinent info. @ - 72 male to ER for evaluation of significant and severe weakness. Patient has improved weakness here in the emergency department with no acute cause found. Patient can be discharged home Discharge Undiagnosed new problem with uncertain prognosis? @ -no Drug Therapy requiring intensive monitoring for toxicity (Heparin, Nitro, Insulin, Cardizem)? @ -no Were any procedures done? @ -no Diagnosis/symptom? @ -Weakness Acute, or Chronic, or Acute on Chronic? @ -Acute Uncomplicated (without systemic symptoms) or Complicated (systemic symptoms)? @ -Complicated Side effects of treatment? @ -no Exacerbation, Progression, or Severe Exacerbation? @ -exacerbation Poses a threat to life or bodily function? How? (Chest pain, [place], NH, pneumonia, PE, COPD, DKA, ARF, appy, cholecystitis, CVA, Diverticulitis, Homicidal, Suicidal, threat to staff... and all critical care pts) @ -yes extremes of age Reevaluation #5: Differential Back Pain: Strain, zoster, cauda equina syndrome, epidural abscess, vertebral osteomyelitis, discitis, fracture, subluxation, disc herniation, DJD, spinal stenosis, dissection, AAA, pancreatitis, peptic ulcer disease, pyelonephritis, kidney stone, this is not meant to be an all-inclusive list. Medical Decision Making - Medical Decision Making 72 male to ER for evaluation of significant and severe weakness. Patient has improved weakness here in the emergency department with no acute cause found. Patient can be discharged home - Lab Data Result diagrams: 06/18/23 03:34 06/18/23 03:34 Lab Results 06/18/23 06/18/23 06/18/23 Range/Units 02:50 03:34 03:34 WBC 10.9 H (3.8-10.6) k/uL RBC 3.17 L (4.30-5.90) m/uL Hgb 9.6 L (13.0-17.5) gm/dL Hct 30.8 L (39.0-53.0) % MCV 97.1 (80.0-100.0) fL MCH 30.3 (25.0-35.0) pg MCHC 31.2 (31.0-37.0) g/dL RDW 14.7 (11.5-15.5) % Plt Count 268 (150-450) k/uL MPV 7.2 Neutrophils % 86 % Lymphocytes % 6 % Monocytes % 5 % Eosinophils % 2 % Basophils % 0 % Neutrophils # 9.4 H (1.3-7.7) k/uL Lymphocytes # 0.6 L (1.0-4.8) k/uL Monocytes # 0.6 (0-1.0) k/uL Eosinophils # 0.2 (0-0.7) k/uL Basophils # 0.0 (0-0.2) k/uL Hypochromasia Slight PT 11.1 (10.0-12.5) sec INR 1.0 (<1.2) APTT 25.7 (22.0-30.0) sec Sodium (137-145) mmol/L Potassium (3.5-5.1) mmol/L Chloride (98-107) mmol/L Carbon Dioxide (22-30) mmol/L Anion Gap mmol/L BUN (9-20) mg/dL Creatinine (0.66-1.25) mg/dL Est GFR (CKD-EPI)AfAm (>60 ml/min/1.73 sqM) Est GFR (CKD-EPI)NonAf (>60 ml/min/1.73 sqM) Glucose (74-99) mg/dL POC Glucose (mg/dL) 190 H (70-110) mg/dL POC Glu Fur Dry Cleaner ID Campo, Yenifer Plasma Lactic Acid Pavan (0.7-2.0) mmol/L Calcium (8.4-10.2) mg/dL Phosphorus (2.5-4.5) mg/dL Magnesium (1.6-2.3) mg/dL Total Bilirubin (0.2-1.3) mg/dL AST (17-59) U/L ALT (4-49) U/L Alkaline Phosphatase (38-126) U/L Troponin I (0.000-0.034) ng/mL Total Protein (6.3-8.2) g/dL Albumin (3.5-5.0) g/dL 06/18/23 06/18/23 06/18/23 Range/Units 03:34 03:34 03:34 WBC (3.8-10.6) k/uL RBC (4.30-5.90) m/uL Hgb (13.0-17.5) gm/dL Hct (39.0-53.0) % MCV (80.0-100.0) fL MCH (25.0-35.0) pg MCHC (31.0-37.0) g/dL RDW (11.5-15.5) % Plt Count (150-450) k/uL MPV Neutrophils % % Lymphocytes % % Monocytes % % Eosinophils % % Basophils % % Neutrophils # (1.3-7.7) k/uL Lymphocytes # (1.0-4.8) k/uL Monocytes # (0-1.0) k/uL Eosinophils # (0-0.7) k/uL Basophils # (0-0.2) k/uL Hypochromasia PT (10.0-12.5) sec INR (<1.2) APTT (22.0-30.0) sec Sodium 138 (137-145) mmol/L Potassium 4.6 (3.5-5.1) mmol/L Chloride 101 (98-107) mmol/L Carbon Dioxide 25 (22-30) mmol/L Anion Gap 12 mmol/L BUN 43 H (9-20) mg/dL Creatinine 2.31 H (0.66-1.25) mg/dL Est GFR (CKD-EPI)AfAm 32 (>60 ml/min/1.73 sqM) Est GFR (CKD-EPI)NonAf 27 (>60 ml/min/1.73 sqM) Glucose 187 H (74-99) mg/dL POC Glucose (mg/dL) (70-110) mg/dL POC Glu Fur Dry Cleaner ID Plasma Lactic Acid Pavan 0.9 (0.7-2.0) mmol/L Calcium 9.5 (8.4-10.2) mg/dL Phosphorus 3.8 (2.5-4.5) mg/dL Magnesium 1.8 (1.6-2.3) mg/dL Total Bilirubin 0.7 (0.2-1.3) mg/dL AST 38 (17-59) U/L ALT 23 (4-49) U/L Alkaline Phosphatase 274 H (38-126) U/L Troponin I 0.018 (0.000-0.034) ng/mL Total Protein 6.4 (6.3-8.2) g/dL Albumin 3.7 (3.5-5.0) g/dL - EKG Data -: EKG Interpreted by Me (EKG sinus 68 OR 106 QRS 83 QTc 412) Disposition Clinical Impression: Weakness Disposition: HOME SELF-CARE Condition: Good Instructions (If sedation given, give patient instructions): Weakness (ED) Is patient prescribed a controlled substance at d/c from ED?: No Referrals: [facility],Clinic [Primary Care Provider] - 1-2 days Time of Disposition: 05:00
[2023-06-18 03:32] VITALS: RESP 20; TEMP 97.6
[2023-06-18] MEDS: SODIUM CHLORIDE 0.9% 500 ML 500 ML IV STA (03:40)
[2023-06-18] MEDS: HYDROmorphone 1 MG/ML 1 ML SYRINGE IVP STA ×2 (03:41→05:43)
[2023-06-18 03:56] LABS: Basophils % (A) 0 %; Eosinophils # (A) 0.2 k/uL (0-0.7); Eosinophils % (A) 2 %; HCT 30.8 % (39.0-53.0); HGB 9.6 gm/dL (13.0-17.5); Hypochromasia Slight; Lymphocytes # (A) 0.6 k/uL (1.0-4.8); Lymphocytes % (A) 6 %; MCH 30.3 pg (25.0-35.0); MCHC 31.2 g/dL (31.0-37.0); MCV 97.1 fL (80.0-100.0); Mean Platelet Volume 7.2; Monocytes # (A) 0.6 k/uL (0-1.0); Monocytes % (A) 5 %; Neutrophils # (A) 9.4 k/uL (1.3-7.7); Neutrophils % (A) 86 %; Platelet Count 268 k/uL (150-450); RBC 3.17 m/uL (4.30-5.90); RDW 14.7 % (11.5-15.5); WBC 10.9 k/uL (3.8-10.6)
[2023-06-18 03:57] LABS: ALT 23 U/L (4-49); AST 38 U/L (17-59); African American GFR (CKD) 32 (>60 ml/min/1.73 sqM); Albumin 3.7 g/dL (3.5-5.0); Alkaline Phosphatase 274 U/L (38-126); Anion Gap 12 mmol/L; Blood Urea Nitrogen 43 mg/dL (9-20); Calcium 9.5 mg/dL (8.4-10.2); Carbon Dioxide 25 mmol/L (22-30); Chloride 101 mmol/L (98-107); Glucose 187 mg/dL (74-99); Magnesium 1.8 mg/dL (1.6-2.3); Non-African American GFR(CKD) 27 (>60 ml/min/1.73 sqM); Phosphorus 3.8 mg/dL (2.5-4.5); Potassium 4.6 mmol/L (3.5-5.1); Sodium 138 mmol/L (137-145); Total Bilirubin 0.7 mg/dL (0.2-1.3); Total Protein 6.4 g/dL (6.3-8.2)
[2023-06-18 04:31] LABS: Partial Thromboplastin Time 25.7 sec (22.0-30.0); Prothrombin Time 11.1 sec (10.0-12.5)
[2023-06-18 06:00] VITALS: BP 146/88; PULSE 75
== END 2023-06-18 05:51 | disposition home or self-care (01) ==
LOC: EC 02:46
DX: R53.1 Weakness (principal); Z90.49 Acquired absence of other specified parts of digestive tract; Z87.891 Personal history of nicotine dependence; Z88.5 Allergy status to narcotic agent; Z88.8 Allergy status to other drugs, medicaments and biological substances; Z94.0 Kidney transplant status
CPT/HCPCS: 36415; 93005; 80053; 83605; 83735; 84100; 84484; 85025; 85610; 85730; 99285; 96374; 96376; 96361; J1170

== ENCOUNTER 2023-07-19 13:07 | Inpatient (IN) | payer MEDICARE, OTHER ==
--- NOTE | 2023-07-19 14:16 | ED ---
General Adult HPI - General Chief complaint: Shortness of Breath Stated complaint: SOB Time Seen by Provider: 07/19/23 13:14 Source: patient, family, EMS, RN notes reviewed, old records reviewed Mode of arrival: EMS Limitations: no limitations - History of Present Illness Initial comments: 72-year-old male presents emergency department chief complaint of shortness of breath. Patient has had increasing shortness of breath since he was discharged home [facility] yesterday. He states he was started on a fentanyl patch for his back pain but denies any other new medications. Patient states he was admitted for 4 days and was found to have lesions of his liver lung. Patient states that he is awaiting a PET scan. Patient did see Dr. Wise at [facility] along with Dr. Maya, and - Related Data Home Medications Medication Instructions Recorded Confirmed INSULIN ASPART (NovoLOG) [NovoLOG See Protocol SQ AC-TID 04/21/22 07/19/23 (formulary)] Latanoprost [Latanoprost 0.005%] 1 drop BOTH EYES HS 04/21/22 07/19/23 NIFEdipine [Adalat CC] 60 mg PO BID 04/21/22 07/19/23 Omeprazole 20 mg PO QAM 04/21/22 07/19/23 carvediloL [Coreg] 6.25 mg PO BID 04/21/22 07/19/23 lamiVUDine [Epivir] 100 mg PO QAM 04/21/22 07/19/23 mycophenolate mofetiL [Cellcept] 250 mg PO BID 04/21/22 07/19/23 predniSONE 2 mg PO QAM 04/21/22 07/19/23 ursodioL [Ursodiol] 300 mg PO TID 04/21/22 07/19/23 Insulin Glargine,Hum.rec.anlog 20 units SQ HS 03/29/23 07/19/23 [Lantus Solostar Pen] allopurinoL 100 mg PO QAM 03/29/23 07/19/23 Prevagen Memory Supplement 1 dose PO DAILY 05/25/23 07/19/23 Aspirin EC [Ecotrin Low Dose] 81 mg PO DAILY 07/19/23 07/19/23 Calcium Carbonate/Vitamin D3 1 tab PO BID 07/19/23 07/19/23 [Calcium 500 mg-Vit D3 5 mcg (200 Unit)] Cholecalciferol [Vitamin D3 (10 10 mcg PO DAILY 07/19/23 07/19/23 Mcg = 400 Iu)] HYDROcodone/APAP 10-325MG [[place] 1 tab PO Q6H PRN 07/19/23 07/19/23 10-325] Lactulose [Constulose] 20 gm PO BID PRN 07/19/23 07/19/23 Magnesium Oxide [Mag-Ox] 400 mg PO DAILY 07/19/23 07/19/23 Melatonin 6 mg PO HS 07/19/23 07/19/23 Rosuvastatin Calcium 5 mg PO DAILY 07/19/23 07/19/23 Sennosides/Docusate Sodium [Senna 1 tab PO BID 07/19/23 07/19/23 Plus 8.6-50 mg Tablet] Tacrolimus [Prograf] 2 mg PO HS 07/19/23 07/19/23 Tacrolimus [Prograf] 3 mg PO DAILY 07/19/23 07/19/23 Timolol Maleate/Pf [Timoptic 0.25% 1 drop BOTH EYES BID 07/19/23 07/19/23 Ocudose] fentaNYL 25MCG/HR PATCH [Duragesic 1 patch TRANSDERM Q72H 07/19/23 07/19/23 25MCG/HR] hydrALAZINE HCL 75 mg PO TID 07/19/23 07/19/23 Allergies Allergy/AdvReac Type Severity Reaction Status Date / Time Penicillins Allergy Unknown Verified 07/19/23 15:21 tromethamine Allergy Unknown Verified 07/19/23 15:21 hydrocodone AdvReac see comment Verified 07/19/23 15:21 morphine AdvReac see comment Verified 07/19/23 15:21 NSAIDS (Non-Steroidal AdvReac Increased Verified 07/19/23 15:21 Anti-Inflamma creatine kinase level oxycodone AdvReac see comment Verified 07/19/23 15:21 Review of Systems ROS Statement: Those systems with pertinent positive or pertinent negative responses have been documented in the HPI. ROS Other: All systems not noted in ROS Statement are negative. Past Medical History Past Medical History: GERD/Reflux, Hyperlipidemia, Hypertension, Liver Disease, Renal Disease, Vascular Disorder Additional Past Medical History / Comment(s): liver/kidney failure with transplant at [facility] in 2016, IDDM type II, PVD, gout History of Any Multi-Drug Resistant Organisms: None Reported Past Surgical History: Cholecystectomy, Orthopedic Surgery Additional Past Surgical History / Comment(s): kidney and liver transplant september 2015, rt rotator cuff, bilateral hip fractures/surgery, ERCP with stent/since removed, R chest port. Past Anesthesia/Blood Transfusion Reactions: No Reported Reaction Past Psychological History: No Psychological Hx Reported Smoking Status: Former smoker Past Alcohol Use History: None Reported Past Drug Use History: Heroin - Past Family History Mother Family Medical History: Diabetes Mellitus Father Family Medical History: No Reported History Brother(s) Family Medical History: Diabetes Mellitus Sister(s) Family Medical History: Diabetes Mellitus Daughter(s) Family Medical History: No Reported History General Exam Limitations: no limitations General appearance: alert, in no apparent distress Head exam: Present: atraumatic, normocephalic, normal inspection Eye exam: Present: normal appearance, PERRL, EOMI. Absent: scleral icterus, conjunctival injection, periorbital swelling ENT exam: Present: normal exam, normal oropharynx, mucous membranes moist Neck exam: Present: normal inspection, full ROM. Absent: tenderness, menin gismus, lymphadenopathy Respiratory exam: Present: normal lung sounds bilaterally. Absent: respiratory distress, wheezes, rales, rhonchi, stridor Cardiovascular Exam: Present: regular rate, normal rhythm, normal heart sounds. Absent: systolic murmur, diastolic murmur, rubs, gallop, clicks GI/Abdominal exam: Present: soft, normal bowel sounds. Absent: distended, tenderness, guarding, rebound, rigid Extremities exam: Absent: pedal edema Neurological exam: Present: alert, oriented X3, CN II-XII intact, reflexes normal. Absent: motor sensory deficit Course Vital Signs 07/19/23 07/19/23 07/19/23 13:18 13:24 13:26 Temperature 97.7 F Pulse Rate 70 Respiratory 18 24 Rate Blood Pressure 113/77 O2 Sat by Pulse 98 97 Oximetry 07/19/23 15:02 Temperature Pulse Rate 70 Respiratory 26 H Rate Blood Pressure 126/71 O2 Sat by Pulse 96 Oximetry EKG Findings - EKG Comments: EKG Findings:: EKG performed at 13: 22 sinus rhythm rate of 69 ME 205 QRS 73 QT/QTc 361/381 - EKG Results: EKG: interpreted by PATY Medical Decision Making - Medical Decision Making Was pt. sent in by a medical professional or institution (, [facility], WINDING OPERATOR, urgent care, hospital, or assisted...) When possible be specific @ -No Did you speak to anyone other than the patient for history (EMS, parent, family, police, friend...)? What history was obtained from this source @ -No Did you review nursing and triage notes (agree or disagree)? Why? @ -I reviewed and agree with nursing and triage notes Were old charts reviewed (outside hosp., previous admission, EMS record, old EKG, old radiological studies, urgent care reports/EKG's, assisted records)? Report findings @ -Records from [facility] Differential Diagnosis (chest pain, altered mental status, abdominal pain women, abdominal pain men, vaginal bleeding, weakness, fever, dyspnea, syncope, headache, dizziness, GI bleed, back pain, seizure, CVA, palpatations, mental health, musculoskeletal)? @ -Differential Dyspnea: Coronary syndrome, arrhythmia, tamponade, asthma, COPD, pulmonary embolism, pneumonia, pneumothorax, pulmonary effusion, anaphylaxis, diabetic ketoacidosis, flailed chest, pulmonary contusion, diaphragmatic rupture, anemia, neuromuscular, this is not meant to be an all-inclusive list. EKG interpreted by me (3pts min.). @ -As above X-rays interpreted by me (1pt min.). @ -Chest x-ray shows mild chronic changes CT interpreted by me (1pt min.). @ -None done U/S interpreted by me (1pt. min.). @ -None done What testing was considered but not performed or refused? (CT, X-rays, U/S, labs)? Why? @ -None What meds were considered but not given or refused? Why? @ -None Did you discuss the management of the patient with other professionals (professionals i.e. VINCENZO Santamaria, WINDING OPERATOR, lab, RT, psych nurse, social media marketer, factory assembler, teacher, chemistry technical officer, case resolution specialist)? Give summary @ -[Dr. Silveira for admission secondary to exertional dyspnea with elevated D- dimer requiring VQ scan Was smoking cessation discussed for >3mins.? @ -No Was critical care preformed (if so, how long)? @ -No Were there social determinants of health that impacted care today? How? (Homelessness, low income, unemployed, alcoholism, drug addiction, transportation, low edu. Level, literacy, decrease access to med. care, intermediate, rehab)? @ -No Was there de-escalation of care discussed even if they declined (Discuss DNR or withdrawal of care, Hospice)? DNR status @ -No What co-morbidities impacted this encounter? (DM, HTN, Smoking, COPD, CAD, Cancer, CVA, ARF, Chemo, Hep., AIDS, mental health diagnosis, sleep apnea, morbid obesity)? @ -[Liver, kidney transplant Was patient admitted / discharged? Hospital course, mention meds given and route, prescriptions, significant lab abnormalities, going to OR and other pertinent info. @ -Admitted patient presented for exertional dyspnea patient can only walk short period of distance without feeling short of breath. Patient has an elevated D-dimer may be related from recent new intra-abdominal masses patient was given Lovenox, will have VQ scan as he had prior kidney transplant and for GFR unable to perform CTA of the chest. Patient will have consult to oncology regarding new masses and further workup. Undiagnosed new problem with uncertain prognosis? @ -yes masses Drug Therapy requiring intensive monitoring for toxicity (Heparin, Nitro, Insulin, Cardizem)? @ -No Were any procedures done? @ -No Diagnosis/symptom? @ -Exertional dyspnea, hyponatremia Acute, or Chronic, or Acute on Chronic? @ -aCute Uncomplicated (without systemic symptoms) or Complicated (systemic symptoms)? @ -complicated Side effects of treatment? @ -No Exacerbation, Progression, or Severe Exacerbation? @ -No Poses a threat to life or bodily function? How? (Chest pain, [place], [place], pneumonia, PE, COPD, DKA, ARF, appy, cholecystitis, CVA, Diverticulitis, Homicidal, Suicidal, threat to staff... and all critical care pts) @ -No - Lab Data Result diagrams: 07/19/23 14:00 07/19/23 14:00 Lab Results 07/19/23 07/19/23 07/19/23 Range/Units 14:00 14:00 14:00 WBC 16.0 H (3.8-10.6) k/uL RBC 2.86 L (4.30-5.90) m/uL Hgb 8.9 L (13.0-17.5) gm/dL Hct 27.0 L (39.0-53.0) % MCV 94.4 (80.0-100.0) fL MCH 31.2 (25.0-35.0) pg MCHC 33.0 (31.0-37.0) g/dL RDW 14.7 (11.5-15.5) % Plt Count 245 (150-450) k/uL MPV 7.6 Neutrophils % 88 % Lymphocytes % 4 % Monocytes % 5 % Eosinophils % 1 % Basophils % 0 % Neutrophils # 14.2 H (1.3-7.7) k/uL Lymphocytes # 0.7 L (1.0-4.8) k/uL Monocytes # 0.9 (0-1.0) k/uL Eosinophils # 0.1 (0-0.7) k/uL Basophils # 0.0 (0-0.2) k/uL Hypochromasia Slight PT 12.2 (10.0-12.5) sec INR 1.1 (<1.2) APTT 22.7 (22.0-30.0) sec D-Dimer 18.53 H (<0.60) mg/L FEU Sodium 124 L (137-145) mmol/L Potassium 5.1 (3.5-5.1) mmol/L Chloride 99 (98-107) mmol/L Carbon Dioxide 17 L (22-30) mmol/L Anion Gap 8 mmol/L BUN 30 H (9-20) mg/dL Creatinine 1.76 H (0.66-1.25) mg/dL Est GFR (CKD-EPI)AfAm 44 (>60 ml/min/1.73 sqM) Est GFR (CKD-EPI)NonAf 38 (>60 ml/min/1.73 sqM) Glucose 331 H (74-99) mg/dL Plasma Lactic Acid [place]avan (0.7-2.0) mmol/L Calcium 8.1 L (8.4-10.2) mg/dL Magnesium 2.0 (1.6-2.3) mg/dL Total Bilirubin 1.1 (0.2-1.3) mg/dL AST 241 H (17-59) U/L ALT 153 H (4-49) U/L Alkaline Phosphatase 669 H (38-126) U/L Troponin I (0.000-0.034) ng/mL NT-Pro-B Natriuret Pep 1360 pg/mL Total Protein 5.2 L (6.3-8.2) g/dL Albumin 2.5 L (3.5-5.0) g/dL Influenza Type A (PCR) (Not Detectd) Influenza Type B (PCR) (Not Detectd) RSV (PCR) (Not Detectd) SARS-CoV-2 (PCR) (Not Detectd) 07/19/23 07/19/23 07/19/23 Range/Units 14:00 14:00 14:00 WBC (3.8-10.6) k/uL RBC (4.30-5.90) m/uL Hgb (13.0-17.5) gm/dL Hct (39.0-53.0) % MCV (80.0-100.0) fL MCH (25.0-35.0) pg MCHC (31.0-37.0) g/dL RDW (11.5-15.5) % Plt Count (150-450) k/uL MPV Neutrophils % % Lymphocytes % % Monocytes % % Eosinophils % % Basophils % % Neutrophils # (1.3-7.7) k/uL Lymphocytes # (1.0-4.8) k/uL Monocytes # (0-1.0) k/uL Eosinophils # (0-0.7) k/uL Basophils # (0-0.2) k/uL Hypochromasia PT (10.0-12.5) sec INR (<1.2) APTT (22.0-30.0) sec D-Dimer (<0.60) mg/L FEU Sodium (137-145) mmol/L Potassium (3.5-5.1) mmol/L Chloride (98-107) mmol/L Carbon Dioxide (22-30) mmol/L Anion Gap mmol/L BUN (9-20) mg/dL Creatinine (0.66-1.25) mg/dL Est GFR (CKD-EPI)AfAm (>60 ml/min/1.73 sqM) Est GFR (CKD-EPI)NonAf (>60 ml/min/1.73 sqM) Glucose (74-99) mg/dL Plasma Lactic Acid [place]avan 1.1 (0.7-2.0) mmol/L Calcium (8.4-10.2) mg/dL Magnesium (1.6-2.3) mg/dL Total Bilirubin (0.2-1.3) mg/dL AST (17-59) U/L ALT (4-49) U/L Alkaline Phosphatase (38-126) U/L Troponin I <0.012 (0.000-0.034) ng/mL NT-Pro-B Natriuret Pep pg/mL Total Protein (6.3-8.2) g/dL Albumin (3.5-5.0) g/dL Influenza Type A (PCR) Not Detected (Not Detectd) Influenza Type B (PCR) Not Detected (Not Detectd) RSV (PCR) Not Detected (Not Detectd) SARS-CoV-2 (PCR) Not Detected (Not Detectd) Disposition Clinical Impression: Exertional dyspnea, Elevated d-dimer, Hyponatremia Disposition: ADMITTED IP TO THIS HOSP Condition: Poor Referrals: [facility],Clinic [Primary Care Provider] - 1-2 days Time of Disposition: 15:39
[2023-07-19 14:21] LABS: Basophils % (A) 0 %; Eosinophils # (A) 0.1 k/uL (0-0.7); Eosinophils % (A) 1 %; HGB 8.9 gm/dL (13.0-17.5); Hypochromasia Slight; Lymphocytes # (A) 0.7 k/uL (1.0-4.8); Lymphocytes % (A) 4 %; MCH 31.2 pg (25.0-35.0); MCV 94.4 fL (80.0-100.0); Mean Platelet Volume 7.6; Monocytes # (A) 0.9 k/uL (0-1.0); Monocytes % (A) 5 %; Neutrophils # (A) 14.2 k/uL (1.3-7.7); Neutrophils % (A) 88 %; Platelet Count 245 k/uL (150-450); RBC 2.86 m/uL (4.30-5.90); RDW 14.7 % (11.5-15.5)
[2023-07-19 14:30] LABS: INR 1.1 (<1.2); Partial Thromboplastin Time 22.7 sec (22.0-30.0); Prothrombin Time 12.2 sec (10.0-12.5)
[2023-07-19 14:37] LABS: ALT 153 U/L (4-49); AST 241 U/L (17-59); African American GFR (CKD) 44 (>60 ml/min/1.73 sqM); Albumin 2.5 g/dL (3.5-5.0); Anion Gap 8 mmol/L; Blood Urea Nitrogen 30 mg/dL (9-20); Calcium 8.1 mg/dL (8.4-10.2); Carbon Dioxide 17 mmol/L (22-30); Chloride 99 mmol/L (98-107); Glucose 331 mg/dL (74-99); Non-African American GFR(CKD) 38 (>60 ml/min/1.73 sqM); Potassium 5.1 mmol/L (3.5-5.1); Sodium 124 mmol/L (137-145); Total Bilirubin 1.1 mg/dL (0.2-1.3); Total Protein 5.2 g/dL (6.3-8.2)
[2023-07-19 14:42] LABS: NT-Pro-B-Type Natriuretic Pept 1360 pg/mL
[2023-07-19 15:13] LABS: Alkaline Phosphatase 669 U/L (38-126)
--- NOTE | 2023-07-19 15:25 | XR ---
EXAMINATION TYPE: XR chest 2V DATE OF EXAM: 07/19/2023 2:08 PM CLINICAL INDICATION:Male, 72 years old with history of difficulty breathing; H COMPARISON: Chest radiographs from 05/31/2023 TECHNIQUE: XR chest 2V Frontal and lateral views of the c hest. FINDINGS: Lungs/Pleura: There is no evidence of pleural effusion, focal consolidation, or pneumothorax. Pulmonary vascularity: Unremarkable. Heart/mediastinum: Cardiomediastinal silhouette is unremarkable. Musculoskeletal: No acute osseous pathology. Other findings: Left approach central venous port has its tip in good position at the cavoatrial junc tion Lines/Tubes: No support lines or tubes. IMPRESSION: No acute cardiopulmonary disease/process.
[2023-07-19] MEDS: ENOXAPARIN 80 MG/0.8 ML SYRINGE SQ STA (15:55)
[2023-07-19] MEDS: SODIUM CHLORIDE 0.9% 1,000 ML IV SCH (15:55)
[2023-07-19] MEDS ORDERED: DEXTROSE 50% SYRINGE 50 ML IVP PRN ×2 (17:11)
[2023-07-19] MEDS: HYDROmorphone 1 MG/ML 1 ML SYRINGE IVP STA (17:14)
[2023-07-19] MEDS: carvediloL 6.25 MG TAB PO SCH (17:14)
--- NOTE | 2023-07-19 17:20 | P.HPIM ---
History of Present Illness H&P Date: 07/19/23 72-year-old male with BPH, carotid stenosis, cirrhosis, diabetes, end-stage renal disease status post renal and liver transplant no longer requiring hemodialysis, glaucoma, hepatitis C, dyslipidemia, hypertension, osteoarthritis, and vitamin D deficiency presents to the ED. He underwent right femoral to popliteal bypass with right common femoral thromboendarterectomy with Dr. Jones on 05/30. Since then, he reports dealing with abdominal pain and worsening lower back pain. He was admitted at [facility] from 07/12-07/17 for abdominal and lower back pain. The patient reports workup revealed lesions on his liver, kidney and lung. He had a difficult time with pain management requiring Dilaudid around the clock, eventually discharged on Fentanyl patch with PET scan scheduled in July with Dr. Wise. He reports feeling immensely short of breath climbing a flight of stairs which prompted him to come to the ED. He denies any chest pain. He denies any nausea or vomiting. Last bowel movement was watery and at [facility]. reports his urine is dark. He reports a poor appetite and oral intake because of the abdominal pain. Pain is generalized to all 4 quadrants described as a "belly ache". Pain is intermittent and worsened with meals. reports a C-scope with Dr. Slaughter many years ago which was normal. In the ED, he underwent extensive evaluation. BP 113/77, HR 70, T 97.7F, RR 18, 98% on RA. CBC, Coag panel and CMP done which showed WBC 16, RBC 2.86, Hg 8.9, Hct 27, Na 124, bicarb 17, BUN 30, Cr 1.76, glu 331, Ca 8.1, AST 241, ALT 153, alk phos 669, alb 2.5. Troponin < 0.012. BNP 1360. COVID, RSV, Flu negative. EKG sinus rhythm with no ST depression or elevation. CXR no acute process, left central venous port. D-Dimer 18.52. Patient is given Lovenox 80 mg SUBCUT for empiric treatment of PE and admitted for further workup and management. General: non toxic, no distress, appears at stated age Derm: warm, dry Head: atraumatic, normocephalic, symmetric Eyes: EOMI, no lid lag, normal sclera Mouth: no lip lesion, mucus membranes moist Cardiovascular: Normal S1 S2. No murmurs, rubs, gallops Lungs: Decreased BS BL, no accessory muscle use Abd: Tender to deep palpation R+LLQ without rebound. [place] + Ext: no gross muscle atrophy, no edema, no contractures Neuro: no focal neuro deficits Psych: Alert, oriented, appropriate affect Based on my assessment of this patient, this patient meets a high complexity level of care. Patient has an acute diagnosis of sudden onset dyspnea in the setting of intractable abdominal and back pain with newly found liver/kidney/lung lesions that poses a threat to life or bodily function. Dyspnea: Concerns for PE. Lovenox 80 mg SUBCUT BID. Obtain Echo. Elevated D-Dimer: Concerns for PE. Therapeutic Lovenox until V/Q scan. Intractable abdominal pain: With apparent lesions to the liver, kidney and lung. Continue Fentanyl patch 25 mcg/hr Q72H. Dilaudid 1 mg IV Q3H PRN severe pain. Zofran 4 mg IV Q8H PRN N/V. Obtain records from [facility]. Diabetes mellitus with hyperglycemia: Lantus 20 units QHS. ISS. Accuchecks ACHS. Hypoglycemic preucations. Leukocytosis: Patient was on steroids during his hospitalization at [facility]. Hyponatremia: Possible dehydration. Start NS at 75 cc/hr. Metabolic acidosis: Lactic acid within normal limits. Possible dehydration. Start NS at 75 cc/hr. Transaminitis: With history of cirrhosis and hepatitis C. Recent CT AP done at [facility]. Obtain GB and liver US. Obtain records from [facility]. Normocytic anemia: Appears at baseline. Likely AOCD due to CKD. Chronic kidney disease: Obtain renal and bladder US. Chronic conditions: BPH, Carotid stenosis, ESRD status post renal and liver transplant, glaucoma, hepatitis C, HLD, HTN, OA, Vit D def. CODE STATUS: FULL CODE DVT Prophylaxis: Lovenox SQ GI Prophylaxis: Protonix IV Designated medical POA if patient is not able to make medical decisions for themselves: I have reviewed the following advertising sales consultant notes: ED note. I have reviewed the results of the following tests: As above. I have ordered the following tests: As above. I have discussed the care of this patient with the following independent historian: . I have independently interpreted the following test below: EKG CXR. I have discussed the management of this patient with the following physician: Past Medical History Past Medical History: GERD/Reflux, Hyperlipidemia, Hypertension, Liver Disease, Renal Disease, Vascular Disorder Additional Past Medical History / Comment(s): liver/kidney failure with transplant at [facility] in 2015, IDDM type II, PVD, gout History of Any Multi-Drug Resistant Organisms: None Reported Past Surgical History: Cholecystectomy, Orthopedic Surgery Additional Past Surgical History / Comment(s): kidney and liver transplant september 2015, rt rotator cuff, bilateral hip fractures/surgery, ERCP with stent/since removed, R chest port. Past Anesthesia/Blood Transfusion Reactions: No Reported Reaction Past Psychological History: No Psychological Hx Reported Smoking Status: Former smoker Past Alcohol Use History: None Reported Past Drug Use History: Heroin - Past Family History Mother Family Medical History: Diabetes Mellitus Father Family Medical History: No Reported History Brother(s) Family Medical History: Diabetes Mellitus Sister(s) Family Medical History: Diabetes Mellitus Daughter(s) Family Medical History: No Reported History Medications and Allergies Home Medications Medication Instructions Recorded Confirmed Type INSULIN ASPART (NovoLOG) [NovoLOG See Protocol SQ AC-TID 04/21/22 07/19/23 History (formulary)] Latanoprost [Latanoprost 0.005%] 1 drop BOTH EYES HS 04/21/22 07/19/23 History NIFEdipine [Adalat CC] 60 mg PO BID 04/21/22 07/19/23 History Omeprazole 20 mg PO QAM 04/21/22 07/19/23 History carvediloL [Coreg] 6.25 mg PO BID 04/21/22 07/19/23 History lamiVUDine [Epivir] 100 mg PO QAM 04/21/22 07/19/23 History mycophenolate mofetiL [Cellcept] 250 mg PO BID 04/21/22 07/19/23 History predniSONE 2 mg PO QAM 04/21/22 07/19/23 History ursodioL [Ursodiol] 300 mg PO TID 04/21/22 07/19/23 History Insulin Glargine,Hum.rec.anlog 20 units SQ HS 03/29/23 07/19/23 History [Lantus Solostar Pen] allopurinoL 100 mg PO QAM 03/29/23 07/19/23 History Prevagen Memory Supplement 1 dose PO DAILY 05/25/23 07/19/23 History Aspirin EC [Ecotrin Low Dose] 81 mg PO DAILY 07/19/23 07/19/23 History Calcium Carbonate/Vitamin D3 1 tab PO BID 07/19/23 07/19/23 History [Calcium 500 mg-Vit D3 5 mcg (200 Unit)] Cholecalciferol [Vitamin D3 (10 10 mcg PO DAILY 07/19/23 07/19/23 History Mcg = 400 Iu)] HYDROcodone/APAP 10-325MG [[place] 1 tab PO Q6H PRN 07/19/23 07/19/23 History 10-325] Lactulose [Constulose] 20 gm PO BID PRN 07/19/23 07/19/23 History Magnesium Oxide [Mag-Ox] 400 mg PO DAILY 07/19/23 07/19/23 History Melatonin 6 mg PO HS 07/19/23 07/19/23 History Rosuvastatin Calcium 5 mg PO DAILY 07/19/23 07/19/23 History Sennosides/Docusate Sodium [Senna 1 tab PO BID 07/19/23 07/19/23 History Plus 8.6-50 mg Tablet] Tacrolimus [Prograf] 2 mg PO HS 07/19/23 07/19/23 History Tacrolimus [Prograf] 3 mg PO DAILY 07/19/23 07/19/23 History Timolol Maleate/Pf [Timoptic 0.25% 1 drop BOTH EYES BID 07/19/23 07/19/23 History Ocudose] fentaNYL 25MCG/HR PATCH [Duragesic 1 patch TRANSDERM Q72H 07/19/23 07/19/23 History 25MCG/HR] hydrALAZINE HCL 75 mg PO TID 07/19/23 07/19/23 History Allergies Allergy/AdvReac Type Severity Reaction Status Date / Time Penicillins Allergy Unknown Verified 07/19/23 15:21 tromethamine Allergy Unknown Verified 07/19/23 15:21 hydrocodone AdvReac see comment Verified 07/19/23 15:21 morphine AdvReac see comment Verified 07/19/23 15:21 NSAIDS (Non-Steroidal AdvReac Increased Verified 07/19/23 15:21 Anti-Inflamma creatine kinase level oxycodone AdvReac see comment Verified 07/19/23 15:21 Physical Exam Vitals: Vital Signs Temp Pulse Resp BP Pulse Ox 07/19/23 17:14 70 26 H 128/64 96 07/19/23 16:00 73 26 H 129/98 96 07/19/23 15:02 70 26 H 126/71 96 07/19/23 13:26 97 07/19/23 13:24 24 07/19/23 13:18 97.7 F 70 18 113/77 98 Intake and Output 07/19/23 07/19/23 07/19/23 06:59 14:59 22:59 Other: Weight 80.739 kg Results CBC & Chem 7: 07/19/23 14:00 07/19/23 14:00 Labs: Abnormal Lab Results - Last 24 Hours (Table) 07/19/23 07/19/23 07/19/23 Range/Units 14:00 14:00 14:00 WBC 16.0 H (3.8-10.6) k/uL RBC 2.86 L (4.30-5.90) m/uL Hgb 8.9 L (13.0-17.5) gm/dL Hct 27.0 L (39.0-53.0) % Neutrophils # 14.2 H (1.3-7.7) k/uL Lymphocytes # 0.7 L (1.0-4.8) k/uL D-Dimer 18.53 H (<0.60) mg/L FEU Sodium 124 L (137-145) mmol/L Carbon Dioxide 17 L (22-30) mmol/L BUN 30 H (9-20) mg/dL Creatinine 1.76 H (0.66-1.25) mg/dL Glucose 331 H (74-99) mg/dL Calcium 8.1 L (8.4-10.2) mg/dL AST 241 H (17-59) U/L ALT 153 H (4-49) U/L Alkaline Phosphatase 669 H (38-126) U/L Total Protein 5.2 L (6.3-8.2) g/dL Albumin 2.5 L (3.5-5.0) g/dL
[2023-07-19 17:26] LABS: Glucose,Whole Blood 321 mg/dL (70-110)
[2023-07-19] MEDS: INSULIN ASPART (NovoLOG) 100 UNIT/ML VIAL SQ SCH (17:58)
[2023-07-19] MEDS: PANTOPRAZOLE 40 MG/10 ML VIAL IVP SCH (17:58)
[2023-07-19 21:18] LABS: Glucose,Whole Blood 262 mg/dL (70-110)
[2023-07-19] MEDS: HYDROmorphone 1 MG/ML 1 ML SYRINGE IVP PRN (21:45)
[2023-07-19] MEDS ORDERED: hydrALAZINE HCL 25 MG TAB PO SCH (22:00)
[2023-07-19] MEDS: INSULIN DETEMIR (LEVEMIR) 100 UNIT/ML SYR SQ SCH (22:25)
[2023-07-19] MEDS: TACROLIMUS 1 MG CAP PO SCH (22:28)
[2023-07-19] MEDS: LATANOPROST 0.005% OPHTH DROPS 2.5 ML BTL BOTH EYES SCH (22:30)
[2023-07-19] MEDS: TIMOLOL 0.25% OPHTH DROPS 5 ML BTL BOTH EYES SCH (22:30)
[2023-07-20] MEDS ORDERED: PANTOPRAZOLE 40 MG TABLET PO SCH (07:30)
[2023-07-20 07:56] LABS: Glucose,Whole Blood 129 mg/dL (70-110)
[2023-07-20] MEDS: predniSONE 1 MG TAB PO SCH (08:26)
[2023-07-20] MEDS: ATORVASTATIN 10 MG TAB PO SCH (08:28)
[2023-07-20] MEDS: TACROLIMUS 1 MG CAP PO SCH (08:29)
[2023-07-20] MEDS: ENOXAPARIN 80 MG/0.8 ML SYRINGE SQ SCH (08:30)
[2023-07-20] MEDS: LAMIVUDINE 100 MG PO SCH (08:53)
[2023-07-20] MEDS ORDERED: ASPIRIN 81 MG PO SCH (09:00)
[2023-07-20 09:24] LABS: HCT 28.3 % (39.0-53.0); HGB 8.3 gm/dL (13.0-17.5); Hypochromasia Marked; MCH 28.6 pg (25.0-35.0); MCHC 29.2 g/dL (31.0-37.0); MCV 98.1 fL (80.0-100.0); Mean Platelet Volume 7.1; Platelet Count 283 k/uL (150-450); RBC 2.89 m/uL (4.30-5.90); RDW 14.5 % (11.5-15.5); WBC 15.8 k/uL (3.8-10.6)
[2023-07-20 09:38] LABS: ALT 129 U/L (4-49); AST 147 U/L (17-59); African American GFR (CKD) 42 (>60 ml/min/1.73 sqM); Albumin 2.4 g/dL (3.5-5.0); Albumin/Globulin Ratio 0.9; Anion Gap 8 mmol/L; Blood Urea Nitrogen 32 mg/dL (9-20); Calcium 8.5 mg/dL (8.4-10.2); Carbon Dioxide 17 mmol/L (22-30); Chloride 103 mmol/L (98-107); Globulin 2.7 g/dL; Glucose 121 mg/dL (74-99); Non-African American GFR(CKD) 37 (>60 ml/min/1.73 sqM); Sodium 128 mmol/L (137-145); Total Protein 5.1 g/dL (6.3-8.2)
--- NOTE | 2023-07-20 10:14 | NM ---
EXAMINATION TYPE: NM pul perfusion DATE OF EXAM: 07/20/2023 COMPARISON: NONE CLINICAL INDICATION: Male, 72 years old with history of Dyspnea, elevated D-dimer; Following administration of 4.85 mCi Tc 99m MAA. Images obtained post injection. FINDINGS: No perfusion abnormalities identified at this time. IMPRESSION: Very low probability for pulmonary embolism.
[2023-07-20 11:10] LABS: Alkaline Phosphatase 629 U/L (38-126)
[2023-07-20 12:56] LABS: Glucose,Whole Blood 140 mg/dL (70-110)
--- NOTE | 2023-07-20 14:11 | P.PN ---
Subjective Progress Note Date: 07/20/23 72-year-old male with BPH, carotid stenosis, cirrhosis, diabetes, end-stage renal disease status post renal and liver transplant no longer requiring hemodialysis, glaucoma, hepatitis C, dyslipidemia, hypertension, osteoarthritis, and vitamin D deficiency presents to the ED. He underwent right femoral to p opliteal bypass with right common femoral thromboendarterectomy with Dr. Jones on 05/30. Since then, he reports dealing with abdominal pain and worsening lower back pain. He was admitted at [facility] from 07/12-07/17 for abdominal and lower back pain. The patient reports workup revealed lesions on his liver, kidney and lung. He had a difficult time with pain management requiring Dilaudid around the clock, eventually discharged on Fentanyl patch with PET scan scheduled in July with Dr. Wise. He reports feeling immensely short of breath climbing a flight of stairs which prompted him to come to the ED. He denies any chest pain. He denies any nausea or vomiting. Last bowel movement was watery and at [facility]. reports his urine is dark. He reports a poor appetite and oral intake because of the abdominal pain. Pain is generalized to all 4 quadrants described as a "belly ache". Pain is intermittent and worsened with meals. reports a C-scope with Dr. Slaughter many years ago which was normal. In the ED, he underwent extensive evaluation. BP 113/77, HR 70, T 97.7F, RR 18, 98% on RA. CBC, Coag panel and CMP done which showed WBC 16, RBC 2.86, Hg 8.9, Hct 27, Na 124, bicarb 17, BUN 30, Cr 1.76, glu 331, Ca 8.1, AST 241, ALT 153, alk phos 669, alb 2.5. Troponin < 0.012. BNP 1360. COVID, RSV, Flu negative. EKG sinus rhythm with no ST depression or elevation. CXR no acute process, left central venous port. D-Dimer 18.52. Patient is given Lovenox 80 mg SUBCUT for empiric treatment of PE and admitted for further workup and management. 07/19 Patient was seen and examined. Abdominal pain improved with Dilaudid. Records from [facility] reviewed, patient underwent CT chest/abd/pelvis which shoulder multiple lesions in the lungs and liver. Plans was for outpatient PET scan but patient presented to [facility] after discharge for worsening shortness of breath and for pain control. CBC WBC 15.8 Hg 8.3 Hct 28.3. CMP Na 128, bicarb 17, BUN 32, Cr 1.81, glu 121, AST 147, ALT 129, alk phos 629, alb 2.4. V/Q scan low probability for PE, Lovenox discontinued. Oncology consult pending. General: non toxic, no distress, appears at stated age Derm: warm, dry Head: atraumatic, normocephalic, symmetric Eyes: EOMI, no lid lag, normal sclera Mouth: no lip lesion, mucus membranes moist Cardiovascular: Normal S1 S2. No murmurs, rubs, gallops Lungs: Decreased BS BL, no accessory muscle use Abd: Tender to deep palpation R+LLQ without rebound. [place] + Ext: no gross muscle atrophy, no edema, no contractures Neuro: no focal neuro deficits Psych: Alert, oriented, appropriate affect Based on my assessment of this patient, this patient meets a high complexity level of care. Patient has an acute diagnosis of sudden onset dyspnea in the setting of intractable abdominal and back pain with newly found liver/kidney/lung lesions that poses a threat to life or bodily function. Dyspnea: V/Q low probability for PE. Likely related to multiple lesions thought to be metastatic disease. Obtain Echo. Elevated D-Dimer: V/Q low probability for PE. Intractable abdominal pain: With apparent lesions to the liver, kidney and lung. Continue Fentanyl patch 25 mcg/hr Q72H. Dilaudid 1 mg IV Q3H PRN severe pain. Zofran 4 mg IV Q8H PRN N/V. Diabetes mellitus with hyperglycemia: Lantus 20 units QHS. ISS. Accuchecks ACHS. Hypoglycemic preucations. Leukocytosis: Patient was on steroids during his hospitalization at [facility]. Hyponatremia: Possible dehydration. Improving. NS at 75 cc/hr. Metabolic acidosis: Lactic acid within normal limits. Possible dehydration. Start NS at 75 cc/hr. Transaminitis: With history of cirrhosis and hepatitis C. Recent CT AP done at [facility]. Likely related to lesions in the liver thought to be metastatic disease. Obtain GB and liver US. Normocytic anemia: Appears at baseline. Likely AOCD due to CKD. Chronic kidney disease: Obtain renal and bladder US. Chronic conditions: BPH, Carotid stenosis, ESRD status post renal and liver turcios splant, glaucoma, hepatitis C, HLD, HTN, OA, Vit D def. CODE STATUS: FULL CODE DVT Prophylaxis: Lovenox SQ GI Prophylaxis: Protonix IV Designated medical POA if patient is not able to make medical decisions for themselves: I have reviewed the following golf tournament consultant notes: I have reviewed the results of the following tests: CBC. CMP. V/Q I have ordered the following tests: Echo pending. Liver US pending. Renal US pending. I have discussed the care of this patient with the following independent historian: . I have independently interpreted the following test below: I have discussed the management of this patient with the following physician: Objective - Vital Signs Vital signs: Vital Signs Temp 98.1 F 07/20/23 13:43 Pulse 72 07/20/23 13:43 Resp 18 07/20/23 13:43 BP 141/72 07/20/23 13:43 Pulse Ox 99 07/20/23 13:43 FiO2 Intake & Output 07/19/23 07/20/23 07/20/23 18:59 06:59 18:59 Weight 80.739 kg - Labs CBC & Chem 7: 07/20/23 08:29 07/20/23 08:29 Labs: Abnormal Lab Results - Last 24 Hours (Table) 07/19/23 07/19/23 07/19/23 Range/Units 14:00 14:00 14:00 WBC 16.0 H (3.8-10.6) k/uL RBC 2.86 L (4.30-5.90) m/uL Hgb 8.9 L (13.0-17.5) gm/dL Hct 27.0 L (39.0-53.0) % MCHC (31.0-37.0) g/dL Neutrophils # 14.2 H (1.3-7.7) k/uL Lymphocytes # 0.7 L (1.0-4.8) k/uL D-Dimer 18.53 H (<0.60) mg/L FEU Sodium 124 L (137-145) mmol/L Carbon Dioxide 17 L (22-30) mmol/L BUN 30 H (9-20) mg/dL Creatinine 1.76 H (0.66-1.25) mg/dL Glucose 331 H (74-99) mg/dL POC Glucose (mg/dL) (70-110) mg/dL Calcium 8.1 L (8.4-10.2) mg/dL AST 241 H (17-59) U/L ALT 153 H (4-49) U/L Alkaline Phosphatase 669 H (38-126) U/L Total Protein 5.2 L (6.3-8.2) g/dL Albumin 2.5 L (3.5-5.0) g/dL 07/19/23 07/19/23 07/20/23 Range/Units 17:25 21:16 07:47 WBC (3.8-10.6) k/uL RBC (4.30-5.90) m/uL Hgb (13.0-17.5) gm/dL Hct (39.0-53.0) % MCHC (31.0-37.0) g/dL Neutrophils # (1.3-7.7) k/uL Lymphocytes # (1.0-4.8) k/uL D-Dimer (<0.60) mg/L FEU Sodium (137-145) mmol/L Carbon Dioxide (22-30) mmol/L BUN (9-20) mg/dL Creatinine (0.66-1.25) mg/dL Glucose (74-99) mg/dL POC Glucose (mg/dL) 321 H 262 H 129 H (70-110) mg/dL Calcium (8.4-10.2) mg/dL AST (17-59) U/L ALT (4-49) U/L Alkaline Phosphatase (38-126) U/L Total Protein (6.3-8.2) g/dL Albumin (3.5-5.0) g/dL 07/20/23 07/20/23 07/20/23 Range/Units 08:29 08:29 12:54 WBC 15.8 H (3.8-10.6) k/uL RBC 2.89 L (4.30-5.90) m/uL Hgb 8.3 L (13.0-17.5) gm/dL Hct 28.3 L (39.0-53.0) % MCHC 29.2 L (31.0-37.0) g/dL Neutrophils # (1.3-7.7) k/uL Lymphocytes # (1.0-4.8) k/uL D-Dimer (<0.60) mg/L FEU Sodium 128 L (137-145) mmol/L Carbon Dioxide 17 L (22-30) mmol/L BUN 32 H (9-20) mg/dL Creatinine 1.81 H (0.66-1.25) mg/dL Glucose 121 H (74-99) mg/dL POC Glucose (mg/dL) 140 H (70-110) mg/dL Calcium (8.4-10.2) mg/dL AST 147 H (17-59) U/L ALT 129 H (4-49) U/L Alkaline Phosphatase 629 H (38-126) U/L Total Protein 5.1 L (6.3-8.2) g/dL Albumin 2.4 L (3.5-5.0) g/dL
--- NOTE | 2023-07-20 14:17 | US ---
EXAMINATION TYPE: US abd limited kidneys/bladder DATE OF EXAM: 07/20/2023 COMPARISON: NONE CLINICAL INDICATION: Male, 72 years old with history of Transaminits; Hx Hep C, liver and kidney turcios splant in 2017; ERVIN TECHNIQUE: Multiple sonographic images of the right upper quadrant, bilateral kidneys, and bladder ar e obtained. FINDINGS: EXAM MEASUREMENTS: Liver Length: 18 cm Gallbladder Wall: NA cm CBD: 1.8 cm Right Kidney: 7.2 x 3.6 x 4.5 cm Left Kidney: 6.7 x 2.6 x 4.5 cm Post Void Volume: NA Pancreas: Tail obscured by overlying bowel gas Liver: Heterogenous ? mets vs transplant surgical changes Gallbladder: Surgically absent CBD: dilated Right Kidney: atrophic Left Kidney: atrophic Bladder: wnl Bilateral Jets Seen No Normal Post Void Residual (normal less than 50ml) NA CONCHE LOADER AND UNLOADER NOTES: Transplant kidney within RLQ = 11.7 x 5.4 x 5.7 cm; ? fat vs other etiology active directory administrator ior and inferior to transplant. Fluid seen adjacent to transplant kidney IMPRESSION: 1. Hepatic metastatic disease is difficult to exclude. 2. Atrophic changes of the kidneys. 3. Postoperative dilatation of the common bile duct. 4. Transplanted kidney as noted.
[2023-07-20 16:58] LABS: Glucose,Whole Blood 160 mg/dL (70-110)
--- NOTE | 2023-07-20 17:42 | CA ---
Transthoracic Echo Report Name: Carlton Cox Age: 72 Gender: M : 1950 Exam Date: 07/20/2023 10:51 Exam Location: [facility] Ht (in): 70 Wt (lb): 178 Ordering Physician: Benedict Camacho MD Attending/Referring Phys: Nurse Practitioner Hospitalist Agnes Smalls RDCS Procedure CPT: Indications: sob Cardiac Hx: Technical Quality: Good Contrast 1: Total Dose (mL): Contrast 2: Total Dose (mL): MEASUREMENTS (Male / Female) Normal Values 2D ECHO LV Diastolic Diameter PLAX 4.7 cm 4.2 - 5.9 / 3.9 - 5.3 cm LV Systolic Diameter PLAX 2.6 cm IVS Diastolic Thickness 1.6 cm 0.6 - 1.0 / 0.6 - 0.9 cm LVPW Diastolic Thickness 1.5 cm 0.6 - 1.0 / 0.6 - 0.9 cm LV Relative Wall Thickness 0.7 RV Internal Dim ED PLAX 3.7 cm LVOT Diameter 2.5 cm LA Systolic Diameter LX 4.5 cm 3.0 - 4.0 / 2.7 - 3.8 cm LA Volume 55.9 cm??? 18 - 58 / 22 - 52 cm??? LA Volume Index 27.9 cm???/m??? 16 - 28 cm???/m??? M-MODE Aortic Root Diameter MM 3.4 cm MV E Point Septal Separation 0.6 cm AV Cusp Separation MM 1.2 cm DOPPLER AV Peak Velocity 225.8 cm/s AV Peak Gradient 20.4 mmHg AV Mean Velocity 151.3 cm/s AV Mean Gradient 10.4 mmHg AV Velocity Time Integral 45.4 cm LVOT Peak Velocity 129.6 cm/s LVOT Peak Gradient 6.7 mmHg LVOT Velocity Time Integral 33.9 cm LVOT Stroke Volume 166.3 cm??? LVOT Stroke Volume Index 83.7 ml/m??? AV Area Cont Eq vti 3.7 cm??? AV Area Cont Eq pk 2.8 cm??? MV Area PHT 2.5 cm??? Mitral E Point Velocity 88.5 cm/s Mitral A Point Velocity 122.5 cm/s Mitral E to A Ratio 0.7 MV Deceleration Time 304.8 ms TR Peak Velocity 285.0 cm/s TR Peak Gradient 32.5 mmHg Right Ventricular Systolic Press 37.5 mmHg FINDINGS Left Ventricle Left ventricular ejection fraction is estimated at 55-60 %. Left ventricular cavity size normal. Moderate concentric left ventricular hypertrophy. No obvious regional wall motion abnormalities. Right Ventricle Mild right ventricular dilatation. Mild pulmonary hypertension. Right Atrium Normal right atrial size. Left Atrium Normal left atrial size. Mitral Valve Structurally normal mitral valve. No mitral stenosis, regurgitation or prolapse. Aortic Valve Trileaflet aortic valve. Aortic valve sclerosis. Mild aortic stenosis with a peak gradient of 20 mmHg and a mean gradient of 10 mmHg. Tricuspid Valve Structurally normal tricuspid valve. Mild tricuspid regurgitation. Pulmonic Valve Structurally normal pulmonic valve. No pulmonic regurgitation. Pericardium No pericardial or pleural effusion. Aorta Normal size aortic root and proximal ascending aorta. CONCLUSIONS Preserved LV systolic function Mild aortic stenosis Previewed by: Dr. Prashanth Tierney MD (Electronically Signed) Final Date: 20 July 2023 17:42
[2023-07-20 20:43] LABS: Glucose,Whole Blood 187 mg/dL (70-110)
[2023-07-20] MEDS ORDERED: MAGNESIUM HYDROXIDE 2,400 MG/30 ML CUP PO PRN (21:06)
--- NOTE | 2023-07-20 21:06 | P.CONS ---
History of Present Illness - Reason for Consult Consult date: 07/20/23 possible metastatic disease Requesting physician: Carroll Barriga - Chief Complaint SOB - History of Present Illness Mr. Cox is a 72-year-old male with a PMH tension, hyperlipidemia, DM, hepatitis C, s/p liver and kidney transplant in 2016 at the [facility] in [place], on antirejection medications. We saw patient 07/14/[address] [facility] in consult for concern for metastatic disease on CT scans. Patient presented with abdominal pain and lower back pain. Reports changes started after May 31, 2023 when he had RLE vascular procedure. Also reports progress mandy unintentional weight loss of about 15 pounds, diminishing appetite since that time then developing the abdominal and lower back pain. CT of the chest without contrast revealed multiple nodules of varying sizes present in the lung parenchyma. Some of the nodules represent calcified granulomas but overall appearance is suspicious for pulmonary disease. CT of the abdomen and pelvis without contrast revealed multiple masses in the liver and lungs. Hemoglobin was 9.7 creatinine 2.07 with elevated alk phos at 865 and a bilirubin of 2.6. Patient has no personal history of cancer. He had no other constitutional symptoms otherwise prior to his vascular surgery. Trending labs showed mild an emia since at least 2018. Patient was discharged about 2 days ago from [facility], he was placed on pain medications with plans for PET/CT and clinic follow-up. Since his discharge patient reports the pain is stable but shortness of breath getting worse. He has about 15 steps to get to his bedroom and he became SOB after coming downstainrs. He used his inhaler, noted it was taking longer for him to recover respiratory collins. Home care nurse told patient and his pt "does not look right". Currently the patient denies any fevers, vomiting, appetite is still fairly poor, low back pain is still constant, urine is very dark, denies dysuria, no hematuria, hematochezia or melena. The right lower extremity swelling has been mild, not progressive. His shortness of breath is stable,Nuclear medicine VQ scan very low probability for PE. Echo reports LVEF at 55 to 60% Review of Systems 10 point ROS is neg except as stated in HPI Past Medical History Past Medical History: GERD/Reflux, Hyperlipidemia, Hypertension, Liver Disease, Renal Disease, Vascular Disorder Additional Past Medical History / Comment(s): liver/kidney failure with transplant at [facility] in 2016, IDDM type II, PVD, gout History of Any Multi-Drug Resistant Organisms: None Reported Past Surgical History: Cholecystectomy, Orthopedic Surgery Additional Past Surgical History / Comment(s): kidney and liver transplant september 2015, rt rotator cuff, bilateral hip fractures/surgery, ERCP with stent/since removed, R chest port. Past Anesthesia/Blood Transfusion Reactions: No Reported Reaction Past Psychological History: No Psychological Hx Reported Smoking Status: Former smoker Past Alcohol Use History: None Reported Past Drug Use History: Heroin - Past Family History Mother Family Medical History: Diabetes Mellitus Father Family Medical History: No Reported History Brother(s) Family Medical History: Diabetes Mellitus Sister(s) Family Medical History: Diabetes Mellitus Daughter(s) Family Medical History: No Reported History Medications and Allergies Home Medications Medication Instructions Recorded Confirmed Type INSULIN ASPART (NovoLOG) [NovoLOG See Protocol SQ AC-TID 04/21/22 07/19/23 History (formulary)] Latanoprost [Latanoprost 0.005%] 1 drop BOTH EYES HS 04/21/22 07/19/23 History NIFEdipine [Adalat CC] 60 mg PO BID 04/21/22 07/19/23 History Omeprazole 20 mg PO QAM 04/21/22 07/19/23 History carvediloL [Coreg] 6.25 mg PO BID 04/21/22 07/19/23 History lamiVUDine [Epivir] 100 mg PO QAM 04/21/22 07/19/23 History mycophenolate mofetiL [Cellcept] 250 mg PO BID 04/21/22 07/19/23 History predniSONE 2 mg PO QAM 04/21/22 07/19/23 History ursodioL [Ursodiol] 300 mg PO TID 04/21/22 07/19/23 History Insulin Glargine,Hum.rec.anlog 20 units SQ HS 03/29/23 07/19/23 History [Lantus Solostar Pen] allopurinoL 100 mg PO QAM 03/29/23 07/19/23 History Prevagen Memory Supplement 1 dose PO DAILY 05/25/23 07/19/23 History Aspirin EC [Ecotrin Low Dose] 81 mg PO DAILY 07/19/23 07/19/23 History Calcium Carbonate/Vitamin D3 1 tab PO BID 07/19/23 07/19/23 History [Calcium 500 mg-Vit D3 5 mcg (200 Unit)] Cholecalciferol [Vitamin D3 (10 10 mcg PO DAILY 07/19/23 07/19/23 History Mcg = 400 Iu)] HYDROcodone/APAP 10-325MG [Avenal 1 tab PO Q6H PRN 07/19/23 07/19/23 History 10-325] Lactulose [Constulose] 20 gm PO BID PRN 07/19/23 07/19/23 History Magnesium Oxide [Mag-Ox] 400 mg PO DAILY 07/19/23 07/19/23 History Melatonin 6 mg PO HS 07/19/23 07/19/23 History Rosuvastatin Calcium 5 mg PO DAILY 07/19/23 07/19/23 History Sennosides/Docusate Sodium [Senna 1 tab PO BID 07/19/23 07/19/23 History Plus 8.6-50 mg Tablet] Tacrolimus [Prograf] 2 mg PO HS 07/19/23 07/19/23 History Tacrolimus [Prograf] 3 mg PO DAILY 07/19/23 07/19/23 History Timolol Maleate/Pf [Timoptic 0.25% 1 drop BOTH EYES BID 07/19/23 07/19/23 History Ocudose] fentaNYL 25MCG/HR PATCH [Duragesic 1 patch TRANSDERM Q72H 07/19/23 07/19/23 History 25MCG/HR] hydrALAZINE HCL 75 mg PO TID 07/19/23 07/19/23 History Allergies Allergy/AdvReac Type Severity Reaction Status Date / Time Penicillins Allergy Unknown Verified 07/19/23 15:21 tromethamine Allergy Unknown Verified 07/19/23 15:21 hydrocodone AdvReac see comment Verified 07/19/23 15:21 morphine AdvReac see comment Verified 07/19/23 15:21 NSAIDS (Non-Steroidal AdvReac Increased Verified 07/19/23 15:21 Anti-Inflamma creatine kinase level oxycodone AdvReac see comment Verified 07/19/23 15:21 Physical Exam Vitals: Vital Signs Temp Pulse Resp BP Pulse Ox 07/20/23 08:22 72 16 127/70 98 07/20/23 04:41 73 20 119/63 98 07/20/23 01:17 74 18 146/73 99 07/19/23 21:50 76 18 139/67 100 07/19/23 18:00 68 20 132/77 99 07/19/23 17:14 70 26 H 128/64 96 07/19/23 16:00 73 26 H 129/98 96 07/19/23 15:02 70 26 H 126/71 96 07/19/23 13:26 97 07/19/23 13:24 24 07/19/23 13:18 97.7 F 70 18 113/77 98 - Constitutional General appearance: average body habitus, cooperative, no acute distress - EENT Eyes: anicteric sclerae, EOMI ENT: hearing grossly normal, normal oropharynx - Neck Neck: no lymphadenopathy - Respiratory Respiratory: bilateral: CTA - Cardiovascular Rhythm: regular Heart sounds: normal: S1, S2 Abnormal Heart Sounds: no systolic murmur, no diastolic murmur, no rub, no S3 Gallop, no S4 Gallop, no click, no other leg Peripheral Edema: bilateral: None - Gastrointestinal General gastrointestinal: no absent bowel sounds, no decreased bowel sounds, no distended, no hepatomegaly, no hyperactive bowel sounds, normal bowel sounds, no organomegaly, no rigid, no scaphoid, soft, no splenomegaly, no tenderness, no u mbilical hernia, no ventral hernia - Neurologic Neurologic: CNII-XII intact - Musculoskeletal Musculoskeletal: generalized weakness - Psychiatric Psychiatric: A&O x's 3, appropriate affect, intact judgment & insight Results CBC & Chem 7: 07/20/23 08:29 07/20/23 08:29 Labs: Abnormal Lab Results - Last 24 Hours (Table) 07/19/23 07/19/23 07/19/23 Range/Units 14:00 14:00 14:00 WBC 16.0 H (3.8-10.6) k/uL RBC 2.86 L (4.30-5.90) m/uL Hgb 8.9 L (13.0-17.5) gm/dL Hct 27.0 L (39.0-53.0) % Neutrophils # 14.2 H (1.3-7.7) k/uL Lymphocytes # 0.7 L (1.0-4.8) k/uL D-Dimer 18.53 H (<0.60) mg/L FEU Sodium 124 L (137-145) mmol/L Carbon Dioxide 17 L (22-30) mmol/L BUN 30 H (9-20) mg/dL Creatinine 1.76 H (0.66-1.25) mg/dL Glucose 331 H (74-99) mg/dL POC Glucose (mg/dL) (70-110) mg/dL Calcium 8.1 L (8.4-10.2) mg/dL AST 241 H (17-59) U/L ALT 153 H (4-49) U/L Alkaline Phosphatase 669 H (38-126) U/L Total Protein 5.2 L (6.3-8.2) g/dL Albumin 2.5 L (3.5-5.0) g/dL 07/19/23 07/19/23 07/20/23 Range/Units 17:25 21:16 07:47 WBC (3.8-10.6) k/uL RBC (4.30-5.90) m/uL Hgb (13.0-17.5) gm/dL Hct (39.0-53.0) % Neutrophils # (1.3-7.7) k/uL Lymphocytes # (1.0-4.8) k/uL D-Dimer (<0.60) mg/L FEU Sodium (137-145) mmol/L Carbon Dioxide (22-30) mmol/L BUN (9-20) mg/dL Creatinine (0.66-1.25) mg/dL Glucose (74-99) mg/dL POC Glucose (mg/dL) 321 H 262 H 129 H (70-110) mg/dL Calcium (8.4-10.2) mg/dL AST (17-59) U/L ALT (4-49) U/L Alkaline Phosphatase (38-126) U/L Total Protein (6.3-8.2) g/dL Albumin (3.5-5.0) g/dL Chest x-ray: report reviewed Assessment and Plan (1) Exertional dyspnea Current Visit: Yes Status: Acute Priority: High Code(s): R06.09 - OTHER FORMS OF DYSPNEA SNOMED Code(s): 13506274 (2) Lung nodule, multiple Current Visit: Yes Status: Acute Priority: High Code(s): R91.8 - OTHER NONSPECIFIC ABNORMAL FINDING OF LUNG FIELD SNOMED Code(s): 394966474 (3) Liver lesion Current Visit: Yes Status: Acute Priority: High Code(s): K76.9 - LIVER DISEASE, UNSPECIFIED SNOMED Code(s): 330093716 Plan: Exertional dyspnea -Patient has had an echo, LVEF 55 to 60%. VQ scan low probability for PE. Patient is on 2 L nasal cannula satting 98% -Ongoing workup per Internal Medicine Lung and liver lesions -Seen on imaging recently at [facility]. Plans were for follow- up PET CT scan and referral for biopsy -Bilirubin currently normal though urine is very dark. LFTs elevated. Abd US Reporting the liver is heterogenous questioning mets versus transplant surgical changes. Postoperative dilation of the common bile duct was reported as well -Consult placed for Interventional Radiology to review the case and see if liver biopsy is possible. Did note that the patient is a liver transplant -Possibly Pulmonary assessment -Liver doctor at the [facility] in [place] [address] Lemus phone [phone] Low back pain -Patient was placed on fentanyl and Avenal on discharge from [facility]. Patient feels he has some control over his pain but, he is using IV pa in medications rather frequently in the ER. Cont pain medications for now. -Meds for prevention of narcotic induced constipation added -Unclear the exact reasoning for the low back pain. May have to consider MRI of the thoracic and lumbar spine Doctor attests: I performed a history and physical examination of this patient, developed impression and plan of care. Discussed with dictator. I agree with dictators note, documented as a scribe.
[2023-07-20] MEDS: IPRATROPIUM-ALBUTEROL 3 ML NEB INHALATION PRN (23:30)
[2023-07-21 06:41] LABS: Glucose,Whole Blood 207 mg/dL (70-110)
[2023-07-21 08:38] LABS: HCT 27.6 % (39.0-53.0); HGB 8.4 gm/dL (13.0-17.5); Hypochromasia Slight; MCH 28.7 pg (25.0-35.0); MCHC 30.4 g/dL (31.0-37.0); MCV 94.6 fL (80.0-100.0); Mean Platelet Volume 7.8; Platelet Count 268 k/uL (150-450); RBC 2.91 m/uL (4.30-5.90); RDW 14.6 % (11.5-15.5); WBC 16.2 k/uL (3.8-10.6)
[2023-07-21] MEDS: SENNOSIDES-DOCUSATE SODIUM 1 EACH TAB PO SCH (08:40)
[2023-07-21] MEDS: ENOXAPARIN 40 MG/0.4 ML SYRINGE SQ SCH (09:04)
[2023-07-21 09:05] LABS: African American GFR (CKD) 48 (>60 ml/min/1.73 sqM); Anion Gap 6 mmol/L; Blood Urea Nitrogen 35 mg/dL (9-20); Calcium 8.5 mg/dL (8.4-10.2); Carbon Dioxide 18 mmol/L (22-30); Chloride 102 mmol/L (98-107); Glucose 161 mg/dL (74-99); Non-African American GFR(CKD) 41 (>60 ml/min/1.73 sqM); Potassium 5.2 mmol/L (3.5-5.1); Sodium 126 mmol/L (137-145)
[2023-07-21] MEDS: LAMIVUDINE 100 MG PO SCH (09:52)
[2023-07-21] MEDS: NALOXONE 0.4 MG/ML 1 ML VIAL IV PRN (10:38)
[2023-07-21] MEDS: ONDANSETRON 4 MG/2 ML VIAL IVP PRN (10:42)
--- NOTE | 2023-07-21 12:28 | CT ---
EXAMINATION TYPE: CT brain wo con CT DLP: 1197.4 mGycm, Automated exposure control for dose reduction was used. DATE OF EXAM: 07/21/2023 11:36 AM COMPARISON: . CLINICAL INDICATION:Male, 72 years old with history of altered mental, AMS TECHNIQUE: Brain: Axial CT images of the brain were obtained with coronal and sagittal reformats created and rev iewed. Contrast used: None. Oral contrast used: None. FINDINGS: Brain: Extra-axial spaces: No abnormal extra-axial fluid collections. Ventricular system: Within normal limits Cerebral parenchyma: No acute intraparenchymal hemorrhage or mass effect. The thomas-white junction is well differentiated. There is marked left basal ganglia. Bilateral basal ganglia calcifications. Daryl cifications. Cerebellum: Unremarkable. Mass effect: No evidence of midline shift. Intracranial vasculature: unremarkable Soft tissues: Normal. Calvarium/osseous structures: No depressed skull fracture. Paranasal sinuses and mastoid air cells: Mild scattered paranasal sinus disease. Visualized orbits: Orbital contents are intact. IMPRESSION: No acute intracranial process.
[2023-07-21 14:46] LABS: ABG Base Excess -8.8 mmol/L; ABG HCO3 18 mmol/L (21-25); ABG Oxygen Saturation 98.6 % (94-97); ABG PCO2 35 mmHg (35-45); ABG PO2 124 mmHg (83-108); ABG TCO2 19 mmol/L (19-24); Allen Test Performed? Yes
--- NOTE | 2023-07-21 16:20 | P.PN ---
Subjective Progress Note Date: 07/21/23 72-year-old male with BPH, carotid stenosis, cirrhosis, diabetes, end-stage renal disease status post renal and liver transplant no longer requiring hemodialysis, glaucoma, hepatitis C, dyslipidemia, hypertension, osteoarthritis, and vitamin D deficiency presents to the ED. He underwent right femoral to p opliteal bypass with right common femoral thromboendarterectomy with Dr. Jones on 05/30. Since then, he reports dealing with abdominal pain and worsening lower back pain. He was admitted at [facility] from 07/12-07/17 for abdominal and lower back pain. The patient reports workup revealed lesions on his liver, kidney and lung. He had a difficult time with pain management requiring Dilaudid around the clock, eventually discharged on Fentanyl patch with PET scan scheduled in July with Dr. Wise. He reports feeling immensely short of breath climbing a flight of stairs which prompted him to come to the ED. He denies any chest pain. He denies any nausea or vomiting. Last bowel movement was watery and at [facility]. reports his urine is dark. He reports a poor appetite and oral intake because of the abdominal pain. Pain is generalized to all 4 quadrants described as a "belly ache". Pain is intermittent and worsened with meals. reports a C-scope with Dr. Slaughter many years ago which was normal. In the ED, he underwent extensive evaluation. BP 113/77, HR 70, T 97.7F, RR 18, 98% on RA. CBC, Coag panel and CMP done which showed WBC 16, RBC 2.86, Hg 8.9, Hct 27, Na 124, bicarb 17, BUN 30, Cr 1.76, glu 331, Ca 8.1, AST 241, ALT 153, alk phos 669, alb 2.5. Troponin < 0.012. BNP 1360. COVID, RSV, Flu negative. EKG sinus rhythm with no ST depression or elevation. CXR no acute process, left central venous port. D-Dimer 18.52. Patient is given Lovenox 80 mg SUBCUT for empiric treatment of PE and admitted for further workup and management. 07/19 Patient was seen and examined. Abdominal pain improved with Dilaudid. Records from [facility] reviewed, patient underwent CT chest/abd/pelvis which shoulder multiple lesions in the lungs and liver. Plans was for outpatient PET scan but patient presented to [facility] after discharge for worsening shortness of breath and for pain control. CBC WBC 15.8 Hg 8.3 Hct 28.3. CMP Na 128, bicarb 17, BUN 32, Cr 1.81, glu 121, AST 147, ALT 129, alk phos 629, alb 2.4. V/Q scan low probability for PE, Lovenox discontinued. Oncology consult pending. 07/20 Patient was seen and examined. Oncology consulted, recommended IR consultation. IR agreeable for possible liver biopsy on Monday (5 days off ASA). Discussed with RN, patient with mental status change, repetitive words, oriented to self. Narcan administered and CT head ordered which showed no acute intracranial process. When he got back from CT head, he became hypoxic to the 80s requiring 8L HFNC, decision made to start BiPAP, obtain ABG and consult Pulmonary. CBC WBC 16.2 Hg 8.4 Hct 27.6. BMP Na 126, K5.2, bicarb 18, BUN 35, Cr 1.63, glu 161. Echo shows EF 55-60% with moderate LVH. General: non toxic, mild-mod distress, appears at stated age Derm: warm, dry Head: atraumatic, normocephalic, symmetric Eyes: EOMI, no lid lag, normal sclera Mouth: no lip lesion, mucus membranes moist Cardiovascular: Normal S1 S2. No murmurs, rubs, gallops Lungs: Decreased BS BL, no accessory muscle use Abd: Tender to deep palpation R+LLQ without rebound. [place] + Ext: no gross muscle atrophy, no edema, no contractures Neuro: no focal neuro deficits Psych: Alert, oriented to self Based on my assessment of this patient, this patient meets a high complexity level of care. Patient has an acute diagnosis of sudden onset dyspnea in the setting of intractable abdominal and back pain with newly found liver/kidney/lung lesions that poses a threat to life or bodily function. Acute hypoxic respiratory failure: BiPAP to maintain O2 sat > 92%. V/Q low probability for PE. Echo as above. Likely related to multiple lesions thought to be metastatic disease. ABG ordered. Pulmonary consulted. Elevated D-Dimer: V/Q low probability for PE. Intractable abdominal pain: With apparent lesions to the liver lung. Fentanyl patch increased to 75 mcg/hr Q72H. Dilaudid 1 mg IV Q3H PRN severe pain. Zofran 4 mg IV Q8H PRN N/V. Plans for IR biopsy on Monday. Oncology on board. Diabetes mellitus with hyperglycemia: Lantus 20 units QHS. ISS. Accuchecks ACHS. Hypoglycemic preucations. Leukocytosis: Patient was on steroids during his hospitalization at [facility]. No signs of infection at this time. Hold antibiotics. Hyponatremia: Possible dehydration. Obtain Serum and Urine Osm, Héctor. NS at 75 cc/hr. Metabolic acidosis: Lactic acid within normal limits. Likely due to CKD. NS at 75 cc/hr. Transaminitis: With history of cirrhosis and hepatitis C. Recent CT AP done at [facility]. Likely related to lesions in the liver thought to be metastatic disease. Normocytic anemia: Appears at baseline. Likely AOCD due to CKD. Chronic kidney disease: No hydronephrosis on renal US. IV hydration as above. Chronic conditions: BPH, Carotid stenosis, ESRD status post renal and liver transplant, glaucoma, hepatitis C, HLD, HTN, OA, Vit D def. CODE STATUS: FULL CODE DVT Prophylaxis: Lovenox SQ GI Prophylaxis: Protonix IV Designated medical POA if patient is not able to make medical decisions for themselves: I have reviewed the following sales enablement consultant notes: I have reviewed the results of the following tests: CBC. BMP. Renal US. Echo. CT brain. I have ordered the following tests: ABG. I have discussed the care of this patient with the following independent historian: . RN I have independently interpreted the following test below: I have discussed the management of this patient with the following physician: Objective - Vital Signs Vital signs: Vital Signs Temp 98.1 F 07/20/23 13:43 Pulse 84 07/21/23 13:32 Resp 16 07/21/23 10:38 BP 140/73 07/21/23 10:14 Pulse Ox 97 07/21/23 10:14 FiO2 28 07/21/23 15:52 - Labs CBC & Chem 7: 07/21/23 08:30 07/21/23 08:30 Labs: Abnormal Lab Results - Last 24 Hours (Table) 07/20/23 07/20/23 07/21/23 Range/Units 16:57 20:42 06:39 WBC (3.8-10.6) k/uL RBC (4.30-5.90) m/uL Hgb (13.0-17.5) gm/dL Hct (39.0-53.0) % MCHC (31.0-37.0) g/dL ABG pH (7.35-7.45) ABG pO2 (83-108) mmHg ABG HCO3 (21-25) mmol/L ABG O2 Saturation (94-97) % Sodium (137-145) mmol/L Potassium (3.5-5.1) mmol/L Carbon Dioxide (22-30) mmol/L BUN (9-20) mg/dL Creatinine (0.66-1.25) mg/dL Glucose (74-99) mg/dL POC Glucose (mg/dL) 160 H 187 H 207 H (70-110) mg/dL 07/21/23 07/21/23 07/21/23 Range/Units 08:30 08:30 14:44 WBC 16.2 H (3.8-10.6) k/uL RBC 2.91 L (4.30-5.90) m/uL Hgb 8.4 L (13.0-17.5) gm/dL Hct 27.6 L (39.0-53.0) % MCHC 30.4 L (31.0-37.0) g/dL ABG pH 7.30 L (7.35-7.45) ABG pO2 124 H (83-108) mmHg ABG HCO3 18 L (21-25) mmol/L ABG O2 Saturation 98.6 H (94-97) % Sodium 126 L (137-145) mmol/L Potassium 5.2 H (3.5-5.1) mmol/L Carbon Dioxide 18 L (22-30) mmol/L BUN 35 H (9-20) mg/dL Creatinine 1.63 H (0.66-1.25) mg/dL Glucose 161 H (74-99) mg/dL POC Glucose (mg/dL) (70-110) mg/dL
[2023-07-21] MEDS ORDERED: IPRATROPIUM-ALBUTEROL 3 ML NEB INHALATION PRN (16:27)
--- NOTE | 2023-07-21 16:27 | P.CNPUL ---
History of Present Illness Consult date: 07/21/23 Requesting physician: Yessenia Sosa Reason for consult: dyspnea, hypoxemia Chief complaint: Hypoxemia. History of present illness: Pulmonary consult dated July 21, 2023. 72-year-old black male, who [facility], is seen in the emergency department, on July 18, for shortness of breath. The patient apparently has been having shortness of breath, since being discharged from [facility]. Recently, the patient was started on a fentanyl patch for back pain, but denies all other medications. He apparently was admitted at the other hospital, for total of 4 days according to his , and was found to have some lesions on his liver and lung. The patient is apparently awaiting an outpatient PET scan. He did see one of the cancer doctors at the other facility. Currently, the patient is seen in ER room 28. The patient is currently on BiPAP, with settings of 12/6 and 28%. According to his he has a history of liver and kidney transplantation. He is getting saline at 75 cc an hour. He apparently had a chest x-ray that was interpreted as normal, and a VQ scan that was interpreted as being very low probability for pulmonary embolism. He does not use oxygen at home. He quit smoking 43 years ago. He had a blood gas showing a pO2 of 124, pCO2 of 35, and a pH of 7.30. This is consistent with metabolic acidosis. His other medical history includes gastroesophageal reflux disease, hypertension, hy perlipidemia, liver kidney transplant at [facility] in 2016, diabetes, and gout. The patient is a former smoker, having quit some 43 years ago as mentioned above. Current labs include a white count of 16.2, hemoglobin 8.4, hematocrit 27.6, and a platelet count of 268,000. Sodium 126, potassium 5.2, chlorides 102, CO2 18, BUN 35, and creatinine 1.63. Calcium is 8.5. Glucose is 161. The patient has a nonanion gap metabolic acidosis, likely from his renal insufficiency/failure. The patient has a couple different chest x- rays, which did not show acute cardiopulmonary disease. Review of Systems REVIEW OF SYSTEMS: CONSTITUTIONAL: [Negative.] NEUROLOGIC: [ Negative.] HEENT: [ Negative.] CARDIAC: [Negative.] PULMONARY: Shortness of breath. GI: [Negative.] : [Negative.] RHEUMATOLOGIC: [ Negative.] IMMUNOLOGIC: [ Negative.] ENDOCRINE: [Negative. ] DERMATOLOGIC: [Negative.] Past Medical History Past Medical History: GERD/Reflux, Hyperlipidemia, Hypertension, Liver Disease, Renal Disease, Vascular Disorder Additional Past Medical History / Comment(s): liver/kidney failure with transplant at [facility] in 2016, IDDM type II, PVD, gout History of Any Multi-Drug Resistant Organisms: None Reported Past Surgical History: Cholecystectomy, Orthopedic Surgery Additional Past Surgical History / Comment(s): kidney and liver transplant september 2015, rt rotator cuff, bilateral hip fractures/surgery, ERCP with stent/since removed, R chest port. Past Anesthesia/Blood Transfusion Reactions: No Reported Reaction Past Psychological History: No Psychological Hx Reported Smoking Status: Former smoker Past Alcohol Use History: None Reported Past Drug Use History: Heroin - Past Family History Mother Family Medical History: Diabetes Mellitus Father Family Medical History: No Reported History Brother(s) Family Medical History: Diabetes Mellitus Sister(s) Family Medical History: Diabetes Mellitus Daughter(s) Family Medical History: No Reported History Medications and Allergies Home Medications Medication Instructions Recorded Confirmed Type INSULIN ASPART (NovoLOG) [NovoLOG See Protocol SQ AC-TID 04/21/22 07/19/23 History (formulary)] Latanoprost [Latanoprost 0.005%] 1 drop BOTH EYES 04/21/22 07/19/23 History NIFEdipine [Adalat CC] 60 mg PO BID 04/21/22 07/19/23 History Omeprazole 20 mg PO QAM 04/21/22 07/19/23 History carvediloL [Coreg] 6.25 mg PO BID 04/21/22 07/19/23 History lamiVUDine [Epivir] 100 mg PO QAM 04/21/22 07/19/23 History mycophenolate mofetiL [Cellcept] 250 mg PO BID 04/21/22 07/19/23 History predniSONE 2 mg PO QAM 04/21/22 07/19/23 History ursodioL [Ursodiol] 300 mg PO TID 04/21/22 07/19/23 History Insulin Glargine,Hum.rec.anlog 20 units SQ HS 03/29/23 07/19/23 History [Lantus Solostar Pen] allopurinoL 100 mg PO QAM 03/29/23 07/19/23 History Prevagen Memory Supplement 1 dose PO DAILY 05/25/23 07/19/23 History Aspirin EC [Ecotrin Low Dose] 81 mg PO DAILY 07/19/23 07/19/23 History Calcium Carbonate/Vitamin D3 1 tab PO BID 07/19/23 07/19/23 History [Calcium 500 mg-Vit D3 5 mcg (200 Unit)] Cholecalciferol [Vitamin D3 (10 10 mcg PO DAILY 07/19/23 07/19/23 History Mcg = 400 Iu)] HYDROcodone/APAP 10-325MG [[place] 1 tab PO Q6H PRN 07/19/23 07/19/23 History 10-325] Lactulose [Constulose] 20 gm PO BID PRN 07/19/23 07/19/23 History Magnesium Oxide [Mag-Ox] 400 mg PO DAILY 07/19/23 07/19/23 History Melatonin 6 mg PO HS 07/19/23 07/19/23 History Rosuvastatin Calcium 5 mg PO DAILY 07/19/23 07/19/23 History Sennosides/Docusate Sodium [Senna 1 tab PO BID 07/19/23 07/19/23 History Plus 8.6-50 mg Tablet] Tacrolimus [Prograf] 2 mg PO HS 07/19/23 07/19/23 History Tacrolimus [Prograf] 3 mg PO DAILY 07/19/23 07/19/23 History Timolol Maleate/Pf [Timoptic 0.25% 1 drop BOTH EYES BID 07/19/23 07/19/23 History Ocudose] fentaNYL 25MCG/HR PATCH [Duragesic 1 patch TRANSDERM Q72H 07/19/23 07/19/23 History 25MCG/HR] hydrALAZINE HCL 75 mg PO TID 07/19/23 07/19/23 History Allergies Allergy/AdvReac Type Severity Reaction Status Date / Time Penicillins Allergy Unknown Verified 07/19/23 15:21 tromethamine Allergy Unknown Verified 07/19/23 15:21 hydrocodone AdvReac see comment Verified 07/19/23 15:21 morphine AdvReac see comment Verified 07/19/23 15:21 NSAIDS (Non-Steroidal AdvReac Increased Verified 07/19/23 15:21 Anti-Inflamma creatine kinase level oxycodone AdvReac see comment Verified 07/19/23 15:21 Physical Exam Osteopathic Statement: *. No significant issues noted on an osteopathic structural exam other than those noted in the History and Physical/Consult. Vitals: Vital Signs Pulse Resp BP Pulse Ox FiO2 07/21/23 15:52 28 07/21/23 14:34 35 07/21/23 13:32 84 07/21/23 13:21 80 07/21/23 10:38 16 07/21/23 10:14 75 24 140/73 97 07/21/23 08:56 77 07/21/23 08:44 80 07/21/23 08:23 74 24 142/74 97 07/20/23 23:40 85 07/20/23 23:32 78 No acute distress, patient is currently on BiPAP. HEENT examination is grossly unremarkable. Mucous membranes are moist. No oral lesions. Neck supple. Full range of motion. No adenopathy thyromegaly or neck vein distention. Cardiovascular examination reveals regular rhythm rate. S1-S2 normal. No S3 or S4. No discernible murmur noted. Heart rate 84 bpm. Heart sounds are distant. Lungs reveal clear breath sounds. Breath sounds are equal bilaterally. No adventitious lung sounds including wheezes rhonchi or crackles. Saturations are 97%. Abdomen soft bowel sounds are heard. No masses or tenderness. Extremities are intact. No cyanosis clubbing or edema. Skin is without rash or lesion. Neurologic examination is brief but nonfocal. Results - Laboratory Findings CBC and BMP: 07/21/23 08:30 07/21/23 08:30 ABG ABG pH 7.30 (7.35-7.45) L 07/21/23 14:44 ABG pCO2 35 mmHg (35-45) 07/21/23 14:44 ABG pO2 124 mmHg (83-108) H 07/21/23 14:44 ABG O2 Saturation 98.6 % (94-97) H 07/21/23 14:44 PT/INR, D-dimer PT 12.2 sec (10.0-12.5) 07/19/23 14:00 INR 1.1 (<1.2) 07/19/23 14:00 D-Dimer 18.53 mg/L FEU (<0.60) H 07/19/23 14:00 Abnormal lab findings: Abnormal Labs 07/19/23 07/19/23 07/19/23 14:00 14:00 14:00 WBC 16.0 H RBC 2.86 L Hgb 8.9 L Hct 27.0 L MCHC Neutrophils # 14.2 H Lymphocytes # 0.7 L D-Dimer 18.53 H ABG pH ABG pO2 ABG HCO3 ABG O2 Saturation Sodium 124 L Potassium Carbon Dioxide 17 L BUN 30 H Creatinine 1.76 H Glucose 331 H POC Glucose (mg/dL) Hemoglobin A1c Calcium 8.1 L AST 241 H ALT 153 H Alkaline Phosphatase 669 H Total Protein 5.2 L Albumin 2.5 L 07/19/23 07/19/23 07/20/23 17:25 21:16 07:47 WBC RBC Hgb Hct MCHC Neutrophils # Lymphocytes # D-Dimer ABG pH ABG pO2 ABG HCO3 ABG O2 Saturation Sodium Potassium Carbon Dioxide BUN Creatinine Glucose POC Glucose (mg/dL) 321 H 262 H 129 H Hemoglobin A1c Calcium AST ALT Alkaline Phosphatase Total Protein Albumin 07/20/23 07/20/23 07/20/23 08:29 08:29 08:29 WBC 15.8 H RBC 2.89 L Hgb 8.3 L Hct 28.3 L MCHC 29.2 L Neutrophils # Lymphocytes # D-Dimer ABG pH ABG pO2 ABG HCO3 ABG O2 Saturation Sodium 128 L Potassium Carbon Dioxide 17 L BUN 32 H Creatinine 1.81 H Glucose 121 H POC Glucose (mg/dL) Hemoglobin A1c 7.4 H Calcium AST 147 H ALT 129 H Alkaline Phosphatase 629 H Total Protein 5.1 L Albumin 2.4 L 07/20/23 07/20/23 07/20/23 12:54 16:57 20:42 WBC RBC Hgb Hct MCHC Neutrophils # Lymphocytes # D-Dimer ABG pH ABG pO2 ABG HCO3 ABG O2 Saturation Sodium Potassium Carbon Dioxide BUN Creatinine Glucose POC Glucose (mg/dL) 140 H 160 H 187 H Hemoglobin A1c Calcium AST ALT Alkaline Phosphatase Total Protein Albumin 07/21/23 07/21/23 07/21/23 06:39 08:30 08:30 WBC 16.2 H RBC 2.91 L Hgb 8.4 L Hct 27.6 L MCHC 30.4 L Neutrophils # Lymphocytes # D-Dimer ABG pH ABG pO2 ABG HCO3 ABG O2 Saturation Sodium 126 L Potassium 5.2 H Carbon Dioxide 18 L BUN 35 H Creatinine 1.63 H Glucose 161 H POC Glucose (mg/dL) 207 H Hemoglobin A1c Calcium AST ALT Alkaline Phosphatase Total Protein Albumin 07/21/23 14:44 WBC RBC Hgb Hct MCHC Neutrophils # Lymphocytes # D-Dimer ABG pH 7.30 L ABG pO2 124 H ABG HCO3 18 L ABG O2 Saturation 98.6 H Sodium Potassium Carbon Dioxide BUN Creatinine Glucose POC Glucose (mg/dL) Hemoglobin A1c Calcium AST ALT Alkaline Phosphatase Total Protein Albumin - Diagnostic Findings Chest x-ray: image reviewed Assessment and Plan Assessment: Shortness of breath, relatively acute, of unclear etiology. Chest x-ray does not show anything acute, and the patient's ventilation/perfusion lung scan was interpreted as being very low probability for pulmonary embolism. History of kidney/liver transplantation, September 2015, at [facility]. Recent evaluation at [facility], which revealed nodules on his li kevin and lung. History of hypertension. History of hyperlipidemia. History of gastroesophageal reflux disease. History of diabetes. History of gout. Previous history of tobacco use. Plan: Plan dated July 21, 2023. The blood gas that was drawn, shows no evidence of metabolic acidosis. Based on his electrolyte profile, he has a non-anion gap metabolic acidosis, likely related to his renal dysfunction. The patient is currently on BiPAP, with settings of 12/6 and 28%. His chest x-ray was normal. His ventilation/perfusion lung scan was interpreted as being very low probability for pulmonary embolism. The patient continues on Prograf, prednisone, and CellCept, as immunosuppressive's for his transplantation. I will add some updrafts to his regimen. Additional recommendations and suggestions are forthcoming. We should try to obtain the scans that were done at the outside hospital. The patient apparently was set up for an outpatient PET scan. Prognosis is guarded. Time with Patient: Greater than 30
--- NOTE | 2023-07-21 16:54 | XR ---
EXAMINATION TYPE: XR chest 1V portable DATE OF EXAM: 07/21/2023 COMPARISON: 05/31/2023 HISTORY: Hypoxemia TECHNIQUE: Single frontal view of the chest is obtained. FINDINGS: There is a Mediport catheter on the left unchanged in position. There is no focal air space opacity, pleural effusion, or pneumothorax seen. The cardiac silhouette size is within normal limits. The osseous structures are intact. IMPRESSION: No acute process.
--- NOTE | 2023-07-21 17:11 | P.PN ---
Subjective Progress Note Date: 07/21/23 Principal diagnosis: Liver lesions -Afebrile, no acute events overnight -Acute metabolic encephalopathy this morning with slurred speech. Brain CT negative for acute intracranial process and improved after Narcan -Required 6 mg of IV Dilaudid over the past 24 hours -Alert but having trouble with speech, but is able to follow commands Objective - Vital Signs Vital signs: Vital Signs Temp 98.1 F 07/20/23 13:43 Pulse 84 07/21/23 13:32 Resp 16 07/21/23 10:38 BP 140/73 07/21/23 10:14 Pulse Ox 97 07/21/23 10:14 FiO2 28 07/21/23 15:52 - Constitutional Constitutional Comment(s): Trouble with speech, but alert General appearance: Present: no acute distress - EENT Eyes: Present: EOMI - Respiratory Details: Nonlabored breathing - Cardiovascular Rhythm: regular - Gastrointestinal General gastrointestinal: Present: distended, soft. Absent: tenderness - Neurologic Neurologic Comment(s): Slurred speech - Labs CBC & Chem 7: 07/21/23 08:30 07/21/23 08:30 Labs: Abnormal Lab Results - Last 24 Hours (Table) 07/20/23 07/21/23 07/21/23 Range/Units 20:42 06:39 08:30 WBC 16.2 H (3.8-10.6) k/uL RBC 2.91 L (4.30-5.90) m/uL Hgb 8.4 L (13.0-17.5) gm/dL Hct 27.6 L (39.0-53.0) % MCHC 30.4 L (31.0-37.0) g/dL ABG pH (7.35-7.45) ABG pO2 (83-108) mmHg ABG HCO3 (21-25) mmol/L ABG O2 Saturation (94-97) % Sodium (137-145) mmol/L Potassium (3.5-5.1) mmol/L Carbon Dioxide (22-30) mmol/L BUN (9-20) mg/dL Creatinine (0.66-1.25) mg/dL Glucose (74-99) mg/dL POC Glucose (mg/dL) 187 H 207 H (70-110) mg/dL 07/21/23 07/21/23 Range/Units 08:30 14:44 WBC (3.8-10.6) k/uL RBC (4.30-5.90) m/uL Hgb (13.0-17.5) gm/dL Hct (39.0-53.0) % MCHC (31.0-37.0) g/dL ABG pH 7.30 L (7.35-7.45) ABG pO2 124 H (83-108) mmHg ABG HCO3 18 L (21-25) mmol/L ABG O2 Saturation 98.6 H (94-97) % Sodium 126 L (137-145) mmol/L Potassium 5.2 H (3.5-5.1) mmol/L Carbon Dioxide 18 L (22-30) mmol/L BUN 35 H (9-20) mg/dL Creatinine 1.63 H (0.66-1.25) mg/dL Glucose 161 H (74-99) mg/dL POC Glucose (mg/dL) (70-110) mg/dL Assessment and Plan Plan: Exertional dyspnea -Patient has had an echo, LVEF 55 to 60%. VQ scan low probability for PE -Pulmonology consulted, appreciate their assistance Lung and liver lesions -Seen on imaging recently at [facility]. Plans were for follow- up PET CT scan and referral for biopsy -Bilirubin currently normal though urine is very dark. LFTs elevated. Abd US Reporting the liver is heterogenous questioning mets versus transplant surgical changes. Postoperative dilation of the common bile duct was reported as well -Consult placed for Interventional Radiology to review the case and see if liver biopsy is possible. Did note that the patient is a liver transplant -Tentative plan is for liver biopsy on 07/25/2023 due to prior aspirin use -Liver doctor at the [facility] in [place] Dr. Lemus phone [phone] Low back pain, complicated by acute metabolic encephalopathy -Patient was placed on fentanyl and [place] on discharge from [facility]. Patient feels he has some control over his pain but, he is using IV pain medications rather frequently in the ER -Required 6 mg of IV Dilaudid over the past 24 hours with increased confusion, brain CT being negative -Improved following Narcan use -Recommend avoiding Dilaudid at this time with fentanyl increased to 75 mcg -Meds for prevention of narcotic induced constipation added -Unclear the exact reasoning for the low back pain and if this is related to imaging findings. May have to consider MRI of the thoracic and lumbar spine if persistent Lana Wise MD
[2023-07-21 17:30] LABS: Glucose,Whole Blood 164 mg/dL (70-110)
[2023-07-21 20:03] LABS: Glucose,Whole Blood 152 mg/dL (70-110)
[2023-07-21] MEDS: HYDROmorphone 0.5 MG/0.5 ML SYRINGE IVP STA (21:19)
[2023-07-21] MEDS: IPRATROPIUM-ALBUTEROL 3 ML NEB INHALATION SCH (21:49)
[2023-07-22 05:52] LABS: Glucose,Whole Blood 25 mg/dL (70-110)
[2023-07-22 05:54] LABS: Glucose,Whole Blood 116 mg/dL (70-110)
--- NOTE | 2023-07-22 06:17 | P.EN ---
Code Blue note patient was doing well, during a Bipap weaning trial , he went into bradycardia and lost pulse, CPR initiated following ACLS protocol , 2 round of epi given , blood sugar was low 25 , and D50% was given , improved blood sugar to 116. ROSC achieved, but patient mental status did not improve, patient was intubated and transferred to the ICU 2 attempts to contact family , no response switch fluid to D5 0.45% at 75 cc per hour , monitor blood sugar Q1 hr X 6 check CXR
[2023-07-22 06:21] LABS: Glucose,Whole Blood 82 mg/dL (70-110)
[2023-07-22] MEDS: propofoL 100 ML IV ONE (06:24)
[2023-07-22] MEDS: DEXTROSE 5%-0.45% NACL 1,000 ML IV SCH (06:25)
[2023-07-22 06:53] LABS: Basophils % (A) 0 %; Eosinophils # (A) 0.1 k/uL (0-0.7); Eosinophils % (A) 0 %; HCT 27.3 % (39.0-53.0); HGB 8.2 gm/dL (13.0-17.5); Hypochromasia Marked; Lymphocytes # (A) 1.4 k/uL (1.0-4.8); Lymphocytes % (A) 7 %; MCV 96.4 fL (80.0-100.0); Mean Platelet Volume 7.7; Monocytes # (A) 0.9 k/uL (0-1.0); Monocytes % (A) 5 %; Neutrophils # (A) 16.7 k/uL (1.3-7.7); Neutrophils % (A) 86 %; Platelet Count 262 k/uL (150-450); RBC 2.84 m/uL (4.30-5.90); RDW 14.8 % (11.5-15.5); WBC 19.4 k/uL (3.8-10.6)
[2023-07-22 06:53] LABS: Glucose,Whole Blood 101 mg/dL (70-110)
[2023-07-22 07:00] LABS: ABG Base Excess -8.6 mmol/L; ABG HCO3 19 mmol/L (21-25); ABG Oxygen Saturation 99.5 % (94-97); ABG PCO2 42 mmHg (35-45); ABG PH 7.26 (7.35-7.45); ABG PO2 243 mmHg (83-108); ABG TCO2 20 mmol/L (19-24); Allen Test Performed? Yes
[2023-07-22] MEDS: SODIUM CHLORIDE 0.9% 1,000 ML IV ONE (07:34)
[2023-07-22 07:59] LABS: Glucose,Whole Blood 97 mg/dL (70-110)
[2023-07-22 08:08] LABS: ALT 87 U/L (4-49); AST 138 U/L (17-59); African American GFR (CKD) 55 (>60 ml/min/1.73 sqM); Albumin 2.3 g/dL (3.5-5.0); Anion Gap 10 mmol/L; Blood Urea Nitrogen 31 mg/dL (9-20); Calcium 8.5 mg/dL (8.4-10.2); Carbon Dioxide 17 mmol/L (22-30); Chloride 104 mmol/L (98-107); Glucose 120 mg/dL (74-99); Magnesium 1.8 mg/dL (1.6-2.3); Non-African American GFR(CKD) 47 (>60 ml/min/1.73 sqM); Potassium 5.2 mmol/L (3.5-5.1); Sodium 131 mmol/L (137-145); Total Bilirubin 1.2 mg/dL (0.2-1.3); Total Protein 4.9 g/dL (6.3-8.2)
[2023-07-22 08:16] LABS: Alkaline Phosphatase 620 U/L (38-126)
--- NOTE | 2023-07-22 08:23 | XR ---
EXAMINATION TYPE: XR chest 1V portable DATE OF EXAM: 07/22/2023 Comparison: 07/21/2023 Clinical History: 72-year-old male Tube placement Findings: ET and NG tubes are satisfactory. Left anterior chest wall injection port with catheter tip at the ca voatrial junction. Heart borderline enlarged. Patient rotated towards the right ultrasound and normal cardiac and mediastinal contours. This may account for the differential density over the right hemit horax. Mild strandy atelectasis at the left base. A couple possible subtle pulmonary nodules left low er lung measuring up to 1.8 cm. Impression: Limited, rotated exam. There are hypoventilatory changes. Unable to exclude a couple pulmonary nodule s at the left lower lung measuring up to 1.8 cm.
[2023-07-22 09:17] LABS: Glucose,Whole Blood 105 mg/dL (70-110)
[2023-07-22] MEDS: CISATRACURIUM 2 MG/ML 5 ML VIAL IV ONE (10:05)
[2023-07-22 10:42] LABS: Glucose,Whole Blood 126 mg/dL (70-110)
[2023-07-22] MEDS: LEVOFLOXACIN 750MG-D5W PMX 750 MG in DEXTROSE/WATER 1 150ML.BAG IVPB SCH (10:49)
--- NOTE | 2023-07-22 10:51 | PCN ---
PROCEDURE NOTE PULMONARY/CRITICAL CARE PROCEDURE NOTE: PROCEDURE PERFORMED: A left internal jugular triple-lumen catheter. PREOPERATIVE DIAGNOSES: Administration of fluids and pressors, hypotension. POSTOPERATIVE DIAGNOSES: Administration of fluids and pressors, hypotension. BOILER TESTER: Dr. Santillan. FIRST SUPERVISOR BLOOD DONOR RECRUITERS: Dr. Alexus Lutz. There was informed consent and universal timeout. The patient's procedure took place in room 259 ICU. TRIPLE LUMEN CATHETER PLACEMENT: Indication: Hemodynamic monitoring/Intravenous access. A time-out was completed verifying correct patient, procedure, site, positioning, and implant(s) or special equipment if applicable. The patient was placed in a dependent position appropriate for triple lumen catheter placement based on the vein to be cannulated. The patient's left shoulder or left neck or left groin was prepped and draped in sterile fashion. 1% Lidocaine was used to anesthetize the surrounding skin area. A triple lumen 9F Cordis catheter was introduced into the left internal jugular vein using Seldinger technique. The catheter was threaded smoothly over the guide wire and appropriate blood return was obtained. Each lumen of the catheter was evacuated of air and flushed with sterile saline. The catheter was then sutured in place to the skin and a sterile dressing applied. Perfusion to the extremity distal to the point of catheter insertion was checked and found to be adequate. There were no immediate complications. There was good blood return from all 3 ports. The catheter was sutured in place. Sterile dressing was applied by the nurse. A chest x-ray was ordered. The patient tolerated the procedure well without any complications. Again, his dressing was applied by the nurse. MMODL / IJN: [id number] /
--- NOTE | 2023-07-22 10:51 | PCN ---
PROCEDURE NOTE PULMONARY/CRITICAL CARE PROCEDURE NOTE: PROCEDURE PERFORMED: Left femoral arterial line. PREOPERATIVE DIAGNOSES: Frequent blood draws, blood gas monitoring, and hypotension. POSTOPERATIVE DIAGNOSES: Frequent blood draws, blood gas monitoring, and hypotension. TECHNICAL PUBLICATIONS MANAGER: Dr. Santillan. FIRST LINK KNITTING MACHINE OPERATOR: Dr. Alexus Lutz. The patient's procedure took place in room 259 ICU. There was informed consent and universal timeout. ARTERIAL LINE PLACEMENT: Indications: Hemodynamic monitoring. A time-out was completed verifying correct patient, procedure, site, positioning, and implant(s) or special equipment if applicable. Carlton's test was performed to ensure adequate perfusion. The patient's left wrist or left groin was prepped and draped in sterile fashion. 1% Lidocaine was used to anesthetize the area. An 18G Arrow arterial line was introduced into the left femoral artery. The catheter was threaded over the guide wire and the needle was removed with appropriate pulsatile blood return. Blood loss was minimal. The catheter was then sutured in place to the skin and a sterile dressing applied. Perfusion to the extremity distal to the point of catheter insertion was checked and found to be adequate. The patient tolerated the procedure well and there were no complications. There was good waveform and blood pressure reading. The catheter was sutured in place. Sterile dressing was applied by the nurse. There was no immediate complication. MMODL / IJN: [id number] /
[2023-07-22] MEDS: CHLORHEXIDINE GLUCONATE 15 ML CUP MUCOUS MEM SCH (10:53)
[2023-07-22] MEDS: CEFEPIME 2 GM in SODIUM CHLORIDE 0.9% 100 ML IVPB SCH (10:55)
--- NOTE | 2023-07-22 11:02 | XR ---
EXAMINATION TYPE: XR chest 1V portable DATE OF EXAM: 07/22/2023 Comparison: Earlier today Clinical History: 72-year-old male central line placement Findings: ET and NG tubes satisfactory. Left anterior chest wall injection port and left CVC tip both near the cavoatrial junction region. No appreciable pneumothorax. Heart borderline in size. Asymmetric elevati on right hemidiaphragm persists. Possible left midlung pulmonary nodule. Mild interstitial density is similar. Degenerative change left shoulder. Possible left midlung nodularity. Impression: 1. Left CVC tip and left chest wall injection port catheter tip both near the cavoatrial junction. 2. There may be mild pulmonary vascular congestion. 3. Possible left midlung nodularity. After successful treatment, contrast-enhanced CT recommended to exclude underlying suspicious pulmonary nodules.
[2023-07-22] MEDS: NOREPINEPHRINE 8 MG in SODIUM CHLORIDE 0.9% 250 ML IV SCH (11:19)
[2023-07-22] MEDS: TACROLIMUS 1 MG CAP PO SCH ×2 (11:20→20:59)
[2023-07-22] MEDS: IPRATROPIUM-ALBUTEROL 3 ML NEB INHALATION SCH (11:36)
[2023-07-22 12:00] LABS: Glucose,Whole Blood 128 mg/dL (70-110)
[2023-07-22 12:17] LABS: Amorphous Sediment,Urine Rare /hpf; Appearance,Urine Cloudy (Clear); Bilirubin,Urine Negative (Negative); Blood,Urine Negative (Negative); Color,Urine Yellow; Glucose,Urine (UA) Negative (Negative); Ketones,Urine Negative (Negative); Leukocyte Esterase,Urine Negative (Negative); Mucus,Urine Rare /hpf; Nitrite,Urine Negative (Negative); PH, Urine 5.5 (5.0-8.0); Protein,Urine 1+ (Negative); RBC,Urine 1 /hpf (0-5); Specific Gravity,Urine 1.019 (1.001-1.035); Squamous Epithelial Cell,Urine 2 /hpf (0-4); WBC,Urine 3 /hpf (0-5)
--- NOTE | 2023-07-22 12:59 | P.PN ---
Subjective Progress Note Date: 07/22/23 72-year-old male with BPH, carotid stenosis, cirrhosis, diabetes, end-stage renal disease status post renal and liver transplant no longer requiring hemodialysis, glaucoma, hepatitis C, dyslipidemia, hypertension, osteoarthritis, and vitamin D deficiency presents to the ED. He underwent right femoral to p opliteal bypass with right common femoral thromboendarterectomy with Dr. Jones on 05/30. Since then, he reports dealing with abdominal pain and worsening lower back pain. He was admitted at [facility] from 07/12-07/17 for abdominal and lower back pain. The patient reports workup revealed lesions on his liver and lung. He had a difficult time with pain management requiring Dilaudid around the clock, eventually discharged on Fentanyl patch with PET scan scheduled in July with Dr. Wise. He reports feeling immensely short of breath climbing a flight of stairs which prompted him to come to the ED. He denies any chest pain. He denies any nausea or vomiting. Last bowel movement was watery and at [facility]. reports his urine is dark. He reports a poor appetite and oral intake because of the abdominal pain. Pain is generalized to all 4 quadrants described as a "belly ache". Pain is intermittent and worsened with meals. reports a C-scope with Dr. Slaughter many years ago w hich was normal. In the ED, he underwent extensive evaluation. BP 113/77, HR 70, T 97.7F, RR 18, 98% on RA. CBC, Coag panel and CMP done which showed WBC 16, RBC 2.86, Hg 8.9, Hct 27, Na 124, bicarb 17, BUN 30, Cr 1.76, glu 331, Ca 8.1, AST 241, ALT 153, alk phos 669, alb 2.5. Troponin < 0.012. BNP 1360. COVID, RSV, Flu negative. EKG sinus rhythm with no ST depression or elevation. CXR no acute process, left central venous port. D-Dimer 18.52. Patient is given Lovenox 80 mg SUBCUT for empiric treatment of PE and admitted for further workup and management. V/Q scan showed low probability for PE and Lovenox was discontinued. Echo showed EF 55-60% with moderate LVH. Oncology consulted, recommended IR consult for liver lesion biopsy. IR plans on doing liver lesion biopsy on Monday (5 days off ASA and 24H off Lovenox). Patient had a change in mentation on 07/20, only oriented to self with repetitive words. He was given Narcan and CT head ordered which showed no acute intracranial process. When he got back from CT head, he became hypoxic to the 80s requiring 8L HFNC. He was started on BiPAP. ABG was done which showed pH 7.3, pCO2 35. Pulmonary consulted, updrafts added. CODE TRENA was called on 07/21 during BiPAP weaning trial. CPR initiated, given 2 rounds of epi, ROSC achieved. POC glucose noted to be low at 25, resolved with D50. Due to altered mentation, decision made to intubate the patient, he was transferred to ICU. 07/21 Patient was seen and examined. Currently intubated. Sedated with Propofol at 25 mcg/kg/min. 1L NS bolus ordered by Pulmonary. Maintenance fluid include D5 1/2 NS running at 75 cc/hr. Procal elevated at 4.1. Case was discussed with Dr. Forrest, start Cefepime 2g IV BID, continue Cellcept and Prograf. CBC WBC 19.4 Hg 8.2 Hct 27.3. CMP Na 131, K 5.2, bicarb 17, BUN 31, Cr 1.46, glu 120, AST 138, ALT 87, alk phos 620, total protein 4.9, alb 2.3. General: Intubated Derm: warm, dry Head: atraumatic, normocephalic, symmetric Eyes: EOMI, no lid lag, normal sclera Mouth: no lip lesion, mucus membranes moist Cardiovascular: Normal S1 S2. No murmurs, rubs, gallops Lungs: Decreased BS BL, no accessory muscle use Ext: no gross muscle atrophy, no edema, no contractures Neuro: Intubated Psych: Intubated Based on my assessment of this patient, this patient meets a high complexity level of care. Patient has an acute diagnosis of acute hypoxic respiratory failure in the setting of intractable abdominal and back pain with newly found liver/lung lesions that poses a threat to life or bodily function. Acute hypoxic respiratory failure: Ventilator management per pulmonary. V/Q low probability for PE. Echo as above. Multiple lung lesions on CT. DuoNeb QID scheduled and Q2H PRN SOB/wheezing. Pulmonary on board. Sepsis: Patient meets sepsis criteria. Unknown source. Leukocytosis could be related to steroid use. Procal elevated. Afebrile. Case was discussed with Dr. Forrest, start Cefepime 2g IV BID, continue Cellcept and Prograf. Blood cultures ordered. ID on board. Elevated D-Dimer: V/Q low probability for PE. Could be related to malignancy. Intractable abdominal pain: With lesions to the liver. Fentanyl patch increased to 75 mcg/hr Q72H. Dilaudid discontinued due to altered mentation. Zofran 4 mg IV Q8H PRN N/V. Plans for IR biopsy on Monday. Oncology and IR on board. Diabetes mellitus with hypoglycemia: Lantus discontinued. D5 1/2 NS at 75 cc/hr. ISS. Accuchecks Q1H. Hypoglycemic preucations. Hyponatremia: Obtain Serum and Urine Osm, Héctor. Metabolic acidosis: Lactic acid within normal limits. Likely due to CKD. Transaminitis: With history of cirrhosis, hepatitis C and liver transplant. Recent CT AP done at [facility]. Likely related to lesions in the liver thought to be metastatic disease. Trend. Normocytic anemia: Appears at baseline. Likely AOCD due to CKD. Chronic kidney disease: No hydronephrosis on renal US. Chronic conditions: BPH, Carotid stenosis, ESRD status post renal and liver transplant, glaucoma, hepatitis C, HLD, HTN, OA, Vit D def. CODE STATUS: FULL CODE DVT Prophylaxis: Lovenox SQ GI Prophylaxis: Protonix IV Designated medical POA if patient is not able to make medical decisions for themselves: I have reviewed the following home sales consultant notes: Pulmonary, Oncology. I have reviewed the results of the following tests: CBC. Pro-shaheed. ABG. CMP. I have ordered the following tests: Blood cultures. Prograf level. I have discussed the care of this patient with the following independent historian: I have independently interpreted the following test below: I have discussed the management of this patient with the following physician: Dr. Forrest. Objective - Vital Signs Vital signs: Vital Signs Temp 98.2 F 07/22/23 03:21 Pulse 78 07/22/23 03:21 Resp 30 H 07/22/23 03:21 BP 155/71 07/22/23 03:21 Pulse Ox 99 07/22/23 03:21 FiO2 50 04/27/24 07:05 Intake & Output 07/21/23 07/22/23 07/22/23 18:59 06:59 18:59 Intake Total 0 6.258 1075 Output Total 500 100 Balance 0 -493.742 975 Intake: IV 1075 Dextrose 5%-0.45% NaCl 1, 75 000 ml @ 75 mls/hr IV . [id number] MARCEL Rx#:[id number] propofoL 1,000 mg In 1000 Empty Bag 1 bag @ 15 MCG/ KG/MIN 7.267 mls/hr IV . [id number] MARCEL Rx#:[id number] Intake, IV Titration 6.258 Amount propofoL 1,000 mg In 6.258 Empty Bag 1 bag @ 15 MCG/ KG/MIN 7.267 mls/hr IV . [id number] MARCEL Rx#:[id number] Oral 0 Output: Urine 500 100 Other: Voiding Method External Catheter External Catheter - Labs CBC & Chem 7: 07/22/23 06:27 07/22/23 06:27 Labs: Abnormal Lab Results - Last 24 Hours (Table) 07/21/23 07/21/23 07/21/23 Range/Units 08:30 08:30 08:38 WBC 16.2 H (3.8-10.6) k/uL RBC 2.91 L (4.30-5.90) m/uL Hgb 8.4 L (13.0-17.5) gm/dL Hct 27.6 L (39.0-53.0) % MCHC 30.4 L (31.0-37.0) g/dL Neutrophils # (1.3-7.7) k/uL ABG pH (7.35-7.45) ABG pO2 (83-108) mmHg ABG HCO3 (21-25) mmol/L ABG O2 Saturation (94-97) % Sodium 126 L (137-145) mmol/L Potassium 5.2 H (3.5-5.1) mmol/L Carbon Dioxide 18 L (22-30) mmol/L BUN 35 H (9-20) mg/dL Creatinine 1.63 H (0.66-1.25) mg/dL Glucose 161 H (74-99) mg/dL POC Glucose (mg/dL) (70-110) mg/dL Procalcitonin 4.10 H (0.02-0.09) ng/mL 07/21/23 07/21/23 07/21/23 Range/Units 14:44 17:28 20:02 WBC (3.8-10.6) k/uL RBC (4.30-5.90) m/uL Hgb (13.0-17.5) gm/dL Hct (39.0-53.0) % MCHC (31.0-37.0) g/dL Neutrophils # (1.3-7.7) k/uL ABG pH 7.30 L (7.35-7.45) ABG pO2 124 H (83-108) mmHg ABG HCO3 18 L (21-25) mmol/L ABG O2 Saturation 98.6 H (94-97) % Sodium (137-145) mmol/L Potassium (3.5-5.1) mmol/L Carbon Dioxide (22-30) mmol/L BUN (9-20) mg/dL Creatinine (0.66-1.25) mg/dL Glucose (74-99) mg/dL POC Glucose (mg/dL) 164 H 152 H (70-110) mg/dL Procalcitonin (0.02-0.09) ng/mL 07/22/23 07/22/23 07/22/23 Range/Units 05:46 05:53 06:27 WBC 19.4 H (3.8-10.6) k/uL RBC 2.84 L (4.30-5.90) m/uL Hgb 8.2 L (13.0-17.5) gm/dL Hct 27.3 L (39.0-53.0) % MCHC 30.0 L (31.0-37.0) g/dL Neutrophils # 16.7 H (1.3-7.7) k/uL ABG pH (7.35-7.45) ABG pO2 (83-108) mmHg ABG HCO3 (21-25) mmol/L ABG O2 Saturation (94-97) % Sodium (137-145) mmol/L Potassium (3.5-5.1) mmol/L Carbon Dioxide (22-30) mmol/L BUN (9-20) mg/dL Creatinine (0.66-1.25) mg/dL Glucose (74-99) mg/dL POC Glucose (mg/dL) 25 L 116 H (70-110) mg/dL Procalcitonin (0.02-0.09) ng/mL
--- NOTE | 2023-07-22 13:39 | P.PN ---
Subjective Progress Note Date: 07/22/23 Principal diagnosis: Cardiopulmonary arrest. Pulmonary consult dated July 21, 2023. 72-year-old black male, who [facility] [place] [facility], is seen in the emergency department, on July 18, for shortness of breath. The patient apparently has been having shortness of breath, since being discharged from [facility]. Recently, the patient was started on a fentanyl patch for back pain, but denies all other medications. He apparently was admitted at the other hospital, for total of 4 days according to his , and was found to have some lesions on his liver and lung. The patient is apparently awaiting an outpatient PET scan. He did see one of the cancer doctors at the other facility. Currently, the patient is seen in ER room 28. The patient is currently on BiPAP, with settings of 12/6 and 28%. According to his he has a history of liver and kidney transplantation. He is getting saline at 75 cc an hour. He apparently had a chest x-ray that was interpreted as normal, and a VQ scan that was interpreted as being very low probability for pulmonary embolism. He does not use oxygen at home. He quit smoking 43 years ago. He had a blood gas showing a pO2 of 124, pCO2 of 35, and a pH of 7.30. This is consistent with metabolic acidosis. His other medical history includes gastroesophageal reflux disease, hypertension, hyperlipidemia, liver kidney transplant at [facility] in 2016, diabetes, and gout. The patient is a former smoker, having quit some 43 years ago as mentioned above. Current labs include a white count of 16.2, hemoglobin 8.4, hematocrit 27.6, and a platelet count of 268,000. Sodium 126, potassium 5.2, chlorides 102, CO2 18, BUN 35, and creatinine 1.63. Calcium is 8.5. Glucose is 161. The patient has a nonanion gap metabolic acidosis, likely from his renal insufficiency/failure. The patient has a couple different chest x- rays, which did not show acute cardiopulmonary disease. Progress note dated July 22, 2023. The patient was seen yesterday in consultation, when he was in the emergency department. The patient was admitted to the floor. Sometime early this morning, the patient developed bradycardia, and pulseless electrical activity. At that time, the patient's blood glucose was only 25. The patient was intubated, for respiratory failure, transferred to the intensive care unit. He is currently in the ICU, on the ventilator. Settings include volume assist- control, rate 20, tidal volume 450, FiO2 50%, PEEP of 5. Blood gases show pO2 of 243, pCO2 42, and a pH of 7.25. The patient is getting dextrose with half- normal saline at 75 cc an hour, propofol at 50 mcg/kg/min. He remains on Levaquin. His procalcitonin level was elevated at 4.10. Current labs include a white count 19.4, hemoglobin 8.2, hematocrit 27.3, and a platelet count of 262,000. Sodium 131, potassium 5.2, chlorides 104, CO2 17, anion gap 10, BUN 31, and creatinine 1.46. Glucose is 120. AST is 138. ALT is 87. Alkaline phosphatase is 620. Procalcitonin level was 4.10. He tested negative for influenza, RSV, and coronavirus. Chest x-ray shows the tip of the central venous catheter, at the junction of the superior vena cava and right atrium. Chest x-ray also suggest some pulmonary vascular congestion. Objective - Vital Signs Vital signs: Vital Signs Temp 98.0 F 07/22/23 12:00 Pulse 57 L 07/22/23 13:00 Resp 28 H 07/22/23 11:30 BP 119/66 07/22/23 13:00 Pulse Ox 100 07/22/23 13:00 FiO2 50 07/22/23 12:00 Intake & Output 07/21/23 07/22/23 07/22/23 18:59 06:59 18:59 Intake Total 0 6.258 1725.197 Output Total 500 345 Balance 0 -267.428 7941.197 Weight 80.739 kg Intake: IV 1643 Cefepime 2 gm In Sodium 100 Chloride 0.9% 100 ml @ 25 mls/hr IVPB Q12HR [facility] Rx #:[id number] Dextrose 5%-0.45% NaCl 1, 525 000 ml @ 75 mls/hr IV . [id number] [facility] Rx#:[id number] pressure bag 18 propofoL 1,000 mg In 1000 Empty Bag 1 bag @ 15 MCG/ KG/MIN 7.267 mls/hr IV . [id number] [facility] Rx#:[id number] Intake, IV Titration 6.258 82.197 Amount Norepinephrine 8 mg In 2.265 Sodium Chloride 0.9% 250 ml @ 0.03 MCG/KG/MIN 4. 687 mls/hr IV .Q24H [facility] Rx#:[id number] propofoL 1,000 mg In 6.258 79.932 Empty Bag 1 bag @ 15 MCG/ KG/MIN 7.267 mls/hr IV . [id number] [facility] Rx#:[id number] Oral 0 Output: Gastric Drainage 150 Urine 500 195 Other: Voiding Method External Catheter External Catheter Indwelling Catheter ABP, PAP, CO, CI - Last Documented Arterial Blood Pressure 127/49 - Exam No acute distress, intubated, and sedated. HEENT examination is grossly unremarkable. Neck supple. Full range of motion. No adenopathy thyromegaly or neck vein distention. Cardiovascular examination reveals regular rhythm rate. S1-S2 normal. No S3 or S4. No discernible murmur noted. Heart sounds are distant. Heart rate 60 bpm. Lungs reveal clear breath sounds. Breath sounds are equal bilaterally. No adventitious lung sounds including wheezes rhonchi or crackles. Saturations are 100%. Abdomen soft bowel sounds are heard. No masses or tenderness. Extremities are intact. No cyanosis clubbing or edema. Skin is without rash or lesion. Neurologic examination cannot be assessed at this time. - Labs CBC & Chem 7: 07/22/23 06:27 07/22/23 06:27 Labs: Abnormal Lab Results - Last 24 Hours (Table) 07/21/23 07/21/23 07/21/23 Range/Units 08:38 08:38 14:44 WBC (3.8-10.6) k/uL RBC (4.30-5.90) m/uL Hgb (13.0-17.5) gm/dL Hct (39.0-53.0) % MCHC (31.0-37.0) g/dL Neutrophils # (1.3-7.7) k/uL ABG pH 7.30 L (7.35-7.45) ABG pO2 124 H (83-108) mmHg ABG HCO3 18 L (21-25) mmol/L ABG O2 Saturation 98.6 H (94-97) % Sodium (137-145) mmol/L Potassium (3.5-5.1) mmol/L Carbon Dioxide (22-30) mmol/L BUN (9-20) mg/dL Creatinine (0.66-1.25) mg/dL Glucose (74-99) mg/dL POC Glucose (mg/dL) (70-110) mg/dL Osmolality 304 H (275-295) mOsm/kg AST (17-59) U/L ALT (4-49) U/L Alkaline Phosphatase (38-126) U/L Total Protein (6.3-8.2) g/dL Albumin (3.5-5.0) g/dL Procalcitonin 4.10 H (0.02-0.09) ng/mL Urine Protein (Negative) Amorphous Sediment (None) /hpf Urine Mucus (None) /hpf Tacrolimus (5.0-20.0) ng/mL 07/21/23 07/21/23 07/21/23 Range/Units 17:28 17:40 20:02 WBC (3.8-10.6) k/uL RBC (4.30-5.90) m/uL Hgb (13.0-17.5) gm/dL Hct (39.0-53.0) % MCHC (31.0-37.0) g/dL Neutrophils # (1.3-7.7) k/uL ABG pH (7.35-7.45) ABG pO2 (83-108) mmHg ABG HCO3 (21-25) mmol/L ABG O2 Saturation (94-97) % Sodium (137-145) mmol/L Potassium (3.5-5.1) mmol/L Carbon Dioxide (22-30) mmol/L BUN (9-20) mg/dL Creatinine (0.66-1.25) mg/dL Glucose (74-99) mg/dL POC Glucose (mg/dL) 164 H 152 H (70-110) mg/dL Osmolality (275-295) mOsm/kg AST (17-59) U/L ALT (4-49) U/L Alkaline Phosphatase (38-126) U/L Total Protein (6.3-8.2) g/dL Albumin (3.5-5.0) g/dL Procalcitonin (0.02-0.09) ng/mL Urine Protein (Negative) Amorphous Sediment (None) /hpf Urine Mucus (None) /hpf Tacrolimus 22.4 H (5.0-20.0) ng/mL 07/22/23 07/22/23 07/22/23 Range/Units 05:46 05:53 06:27 WBC 19.4 H (3.8-10.6) k/uL RBC 2.84 L (4.30-5.90) m/uL Hgb 8.2 L (13.0-17.5) gm/dL Hct 27.3 L (39.0-53.0) % MCHC 30.0 L (31.0-37.0) g/dL Neutrophils # 16.7 H (1.3-7.7) k/uL ABG pH (7.35-7.45) ABG pO2 (83-108) mmHg ABG HCO3 (21-25) mmol/L ABG O2 Saturation (94-97) % Sodium (137-145) mmol/L Potassium (3.5-5.1) mmol/L Carbon Dioxide (22-30) mmol/L BUN (9-20) mg/dL Creatinine (0.66-1.25) mg/dL Glucose (74-99) mg/dL POC Glucose (mg/dL) 25 L 116 H (70-110) mg/dL Osmolality (275-295) mOsm/kg AST (17-59) U/L ALT (4-49) U/L Alkaline Phosphatase (38-126) U/L Total Protein (6.3-8.2) g/dL Albumin (3.5-5.0) g/dL Procalcitonin (0.02-0.09) ng/mL Urine Protein (Negative) Amorphous Sediment (None) /hpf Urine Mucus (None) /hpf Tacrolimus (5.0-20.0) ng/mL 07/22/23 07/22/23 07/22/23 Range/Units 06:27 06:39 10:40 WBC (3.8-10.6) k/uL RBC (4.30-5.90) m/uL Hgb (13.0-17.5) gm/dL Hct (39.0-53.0) % MCHC (31.0-37.0) g/dL Neutrophils # (1.3-7.7) k/uL ABG pH 7.26 L (7.35-7.45) ABG pO2 243 H (83-108) mmHg ABG HCO3 19 L (21-25) mmol/L ABG O2 Saturation 99.5 H (94-97) % Sodium 131 L (137-145) mmol/L Potassium 5.2 H (3.5-5.1) mmol/L Carbon Dioxide 17 L (22-30) mmol/L BUN 31 H (9-20) mg/dL Creatinine 1.46 H (0.66-1.25) mg/dL Glucose 120 H (74-99) mg/dL POC Glucose (mg/dL) 126 H (70-110) mg/dL Osmolality (275-295) mOsm/kg AST 138 H (17-59) U/L ALT 87 H (4-49) U/L Alkaline Phosphatase 620 H (38-126) U/L Total Protein 4.9 L (6.3-8.2) g/dL Albumin 2.3 L (3.5-5.0) g/dL Procalcitonin (0.02-0.09) ng/mL Urine Protein (Negative) Amorphous Sediment (None) /hpf Urine Mucus (None) /hpf Tacrolimus (5.0-20.0) ng/mL 07/22/23 07/22/23 Range/Units 11:12 11:58 WBC (3.8-10.6) k/uL RBC (4.30-5.90) m/uL Hgb (13.0-17.5) gm/dL Hct (39.0-53.0) % MCHC (31.0-37.0) g/dL Neutrophils # (1.3-7.7) k/uL ABG pH (7.35-7.45) ABG pO2 (83-108) mmHg ABG HCO3 (21-25) mmol/L ABG O2 Saturation (94-97) % Sodium (137-145) mmol/L Potassium (3.5-5.1) mmol/L Carbon Dioxide (22-30) mmol/L BUN (9-20) mg/dL Creatinine (0.66-1.25) mg/dL Glucose (74-99) mg/dL POC Glucose (mg/dL) 128 H (70-110) mg/dL Osmolality (275-295) mOsm/kg AST (17-59) U/L ALT (4-49) U/L Alkaline Phosphatase (38-126) U/L Total Protein (6.3-8.2) g/dL Albumin (3.5-5.0) g/dL Procalcitonin (0.02-0.09) ng/mL Urine Protein 1+ H (Negative) Amorphous Sediment Rare H (None) /hpf Urine Mucus Rare H (None) /hpf Tacrolimus (5.0-20.0) ng/mL Assessment and Plan Assessment: Acute hypoxemic respiratory failure, requiring intubation and mechanical ventilation, on July 21, secondary to bradycardia, pulseless electrical activity, and hypoglycemia. Shortness of breath, relatively acute, of unclear etiology. Chest x-ray does not show anything acute, and the patient's ventilation/perfusion lung scan was interpreted as being very low probability for pulmonary embolism. History of kidney/liver transplantation, September 2015, at [facility]. Recent evaluation at [facility], which revealed nodules on his liver and lung. History of hypertension. History of hyperlipidemia. History of gastroesophageal reflux disease. History of diabetes. History of gout. Previous history of tobacco use. Plan: Plan dated July 21, 2023. The blood gas that was drawn, shows no evidence of metabolic acidosis. Based on his electrolyte profile, he has a non-anion gap metabolic acidosis, likely related to his renal dysfunction. The patient is currently on BiPAP, with settings of 12/6 and 28%. His chest x-ray was normal. His ventilation/perfusion lung scan was interpreted as being very low probability for pulmonary embolism. The patient continues on Prograf, prednisone, and CellCept, as immunosuppressive's for his transplantation. I will add some updrafts to his regimen. Additional recommendations and suggestions are forthcoming. We should try to obtain the scans that were done at the outside hospital. The patient apparently was set up for an outpatient PET scan. Prognosis is guarded. Plan dated July 22, 2023. The patient is seen in the intensive care unit today. Currently, the patient is on propofol at 50 mcg/kg/min, and dextrose with half-normal saline at 75 cc an hour. The patient continues on Levaquin. His procalcitonin level was elevated at 4.10. Blood gases show pO2 of 243, pCO2 of 42, pH is 7.25. This morning, the patient had an episode of bradycardia, pulseless electrical activity, and severe hypoglycemia. The patient was a CODE BLUE overhead, and was intubated, and transferred to the intensive care unit. Today, we placed a right femoral arterial line, and a left internal jugular triple-lumen catheter. Additional recommendations and suggestions are forthcoming. We will continue to follow make recommendations along the way. Time with Patient: Greater than 30
[2023-07-22 14:17] LABS: Glucose,Whole Blood 148 mg/dL (70-110)
--- NOTE | 2023-07-22 15:00 | P.PN ---
Subjective Progress Note Date: 07/22/23 Principal diagnosis: Liver lesions -Developed PEA all being transition from BiPAP earlier this morning -Underwent CPR and is currently intubated and sedated in the ICU -Blood glucose during CPR was found to be 25 - at bedside noted progressive improvement in his slurred speech during the afternoon and early evening Objective - Vital Signs Vital signs: Vital Signs Temp 98.0 F 07/22/23 12:00 Pulse 57 L 07/22/23 13:00 Resp 28 H 07/22/23 11:30 BP 119/66 07/22/23 13:00 Pulse Ox 100 07/22/23 13:00 FiO2 50 07/22/23 12:00 Intake & Output 07/21/23 07/22/23 07/22/23 18:59 06:59 18:59 Intake Total 0 6.258 1814.970 Output Total 500 345 Balance 0 -060.710 2884.970 Weight 80.739 kg Intake: IV 1643 Cefepime 2 gm In Sodium 100 Chloride 0.9% 100 ml @ 25 mls/hr IVPB Q12HR [facility] Rx #:[id number] Dextrose 5%-0.45% NaCl 1, 525 000 ml @ 75 mls/hr IV . [id number] [facility] Rx#:[id number] pressure bag 18 propofoL 1,000 mg In 1000 Empty Bag 1 bag @ 15 MCG/ KG/MIN 7.267 mls/hr IV . [id number] [facility] Rx#:[id number] Intake, IV Titration 6.258 171.970 Amount Norepinephrine 8 mg In 11.015 Sodium Chloride 0.9% 250 ml @ 0.03 MCG/KG/MIN 4. 687 mls/hr IV .Q24H [facility] Rx#:[id number] propofoL 1,000 mg In 6.258 160.955 Empty Bag 1 bag @ 15 MCG/ KG/MIN 7.267 mls/hr IV . [id number] [facility] Rx#:[id number] Oral 0 Output: Gastric Drainage 150 Urine 500 195 Other: Voiding Method External Catheter External Catheter Indwelling Catheter ABP, PAP, CO, CI - Last Documented Arterial Blood Pressure 127/49 - Constitutional Constitutional Comment(s): Intubated and sedated - EENT EENT Comment(s): Endotracheal and orogastric tube midline - Respiratory Details: Mechanical breath sounds - Cardiovascular Rhythm: regular - Gastrointestinal General gastrointestinal: Present: distended, soft - Neurologic Neurologic Comment(s): Not alert due to sedation - Labs CBC & Chem 7: 07/22/23 06:27 07/22/23 06:27 Labs: Abnormal Lab Results - Last 24 Hours (Table) 07/21/23 07/21/23 07/21/23 Range/Units 08:38 08:38 14:44 WBC (3.8-10.6) k/uL RBC (4.30-5.90) m/uL Hgb (13.0-17.5) gm/dL Hct (39.0-53.0) % MCHC (31.0-37.0) g/dL Neutrophils # (1.3-7.7) k/uL ABG pH 7.30 L (7.35-7.45) ABG pO2 124 H (83-108) mmHg ABG HCO3 18 L (21-25) mmol/L ABG O2 Saturation 98.6 H (94-97) % Sodium (137-145) mmol/L Potassium (3.5-5.1) mmol/L Carbon Dioxide (22-30) mmol/L BUN (9-20) mg/dL Creatinine (0.66-1.25) mg/dL Glucose (74-99) mg/dL POC Glucose (mg/dL) (70-110) mg/dL Osmolality 304 H (275-295) mOsm/kg AST (17-59) U/L ALT (4-49) U/L Alkaline Phosphatase (38-126) U/L Total Protein (6.3-8.2) g/dL Albumin (3.5-5.0) g/dL Procalcitonin 4.10 H (0.02-0.09) ng/mL Urine Protein (Negative) Amorphous Sediment (None) /hpf Urine Mucus (None) /hpf Tacrolimus (5.0-20.0) ng/mL 07/21/23 07/21/23 07/21/23 Range/Units 17:28 17:40 20:02 WBC (3.8-10.6) k/uL RBC (4.30-5.90) m/uL Hgb (13.0-17.5) gm/dL Hct (39.0-53.0) % MCHC (31.0-37.0) g/dL Neutrophils # (1.3-7.7) k/uL ABG pH (7.35-7.45) ABG pO2 (83-108) mmHg ABG HCO3 (21-25) mmol/L ABG O2 Saturation (94-97) % Sodium (137-145) mmol/L Potassium (3.5-5.1) mmol/L Carbon Dioxide (22-30) mmol/L BUN (9-20) mg/dL Creatinine (0.66-1.25) mg/dL Glucose (74-99) mg/dL POC Glucose (mg/dL) 164 H 152 H (70-110) mg/dL Osmolality (275-295) mOsm/kg AST (17-59) U/L ALT (4-49) U/L Alkaline Phosphatase (38-126) U/L Total Protein (6.3-8.2) g/dL Albumin (3.5-5.0) g/dL Procalcitonin (0.02-0.09) ng/mL Urine Protein (Negative) Amorphous Sediment (None) /hpf Urine Mucus (None) /hpf Tacrolimus 22.4 H (5.0-20.0) ng/mL 07/22/23 07/22/23 07/22/23 Range/Units 05:46 05:53 06:27 WBC 19.4 H (3.8-10.6) k/uL RBC 2.84 L (4.30-5.90) m/uL Hgb 8.2 L (13.0-17.5) gm/dL Hct 27.3 L (39.0-53.0) % MCHC 30.0 L (31.0-37.0) g/dL Neutrophils # 16.7 H (1.3-7.7) k/uL ABG pH (7.35-7.45) ABG pO2 (83-108) mmHg ABG HCO3 (21-25) mmol/L ABG O2 Saturation (94-97) % Sodium (137-145) mmol/L Potassium (3.5-5.1) mmol/L Carbon Dioxide (22-30) mmol/L BUN (9-20) mg/dL Creatinine (0.66-1.25) mg/dL Glucose (74-99) mg/dL POC Glucose (mg/dL) 25 L 116 H (70-110) mg/dL Osmolality (275-295) mOsm/kg AST (17-59) U/L ALT (4-49) U/L Alkaline Phosphatase (38-126) U/L Total Protein (6.3-8.2) g/dL Albumin (3.5-5.0) g/dL Procalcitonin (0.02-0.09) ng/mL Urine Protein (Negative) Amorphous Sediment (None) /hpf Urine Mucus (None) /hpf Tacrolimus (5.0-20.0) ng/mL 07/22/23 07/22/23 07/22/23 Range/Units 06:27 06:39 10:40 WBC (3.8-10.6) k/uL RBC (4.30-5.90) m/uL Hgb (13.0-17.5) gm/dL Hct (39.0-53.0) % MCHC (31.0-37.0) g/dL Neutrophils # (1.3-7.7) k/uL ABG pH 7.26 L (7.35-7.45) ABG pO2 243 H (83-108) mmHg ABG HCO3 19 L (21-25) mmol/L ABG O2 Saturation 99.5 H (94-97) % Sodium 131 L (137-145) mmol/L Potassium 5.2 H (3.5-5.1) mmol/L Carbon Dioxide 17 L (22-30) mmol/L BUN 31 H (9-20) mg/dL Creatinine 1.46 H (0.66-1.25) mg/dL Glucose 120 H (74-99) mg/dL POC Glucose (mg/dL) 126 H (70-110) mg/dL Osmolality (275-295) mOsm/kg AST 138 H (17-59) U/L ALT 87 H (4-49) U/L Alkaline Phosphatase 620 H (38-126) U/L Total Protein 4.9 L (6.3-8.2) g/dL Albumin 2.3 L (3.5-5.0) g/dL Procalcitonin (0.02-0.09) ng/mL Urine Protein (Negative) Amorphous Sediment (None) /hpf Urine Mucus (None) /hpf Tacrolimus (5.0-20.0) ng/mL 07/22/23 07/22/23 07/22/23 Range/Units 11:12 11:58 14:15 WBC (3.8-10.6) k/uL RBC (4.30-5.90) m/uL Hgb (13.0-17.5) gm/dL Hct (39.0-53.0) % MCHC (31.0-37.0) g/dL Neutrophils # (1.3-7.7) k/uL ABG pH (7.35-7.45) ABG pO2 (83-108) mmHg ABG HCO3 (21-25) mmol/L ABG O2 Saturation (94-97) % Sodium (137-145) mmol/L Potassium (3.5-5.1) mmol/L Carbon Dioxide (22-30) mmol/L BUN (9-20) mg/dL Creatinine (0.66-1.25) mg/dL Glucose (74-99) mg/dL POC Glucose (mg/dL) 128 H 148 H (70-110) mg/dL Osmolality (275-295) mOsm/kg AST (17-59) U/L ALT (4-49) U/L Alkaline Phosphatase (38-126) U/L Total Protein (6.3-8.2) g/dL Albumin (3.5-5.0) g/dL Procalcitonin (0.02-0.09) ng/mL Urine Protein 1+ H (Negative) Amorphous Sediment Rare H (None) /hpf Urine Mucus Rare H (None) /hpf Tacrolimus (5.0-20.0) ng/mL Assessment and Plan (1) Liver lesion Current Visit: Yes Status: Acute Priority: High Code(s): K76.9 - LIVER DISEASE, UNSPECIFIED SNOMED Code(s): 585416301 (2) Lung nodule, multiple Current Visit: Yes Status: Acute Priority: High Code(s): R91.8 - OTHER NONSPECIFIC ABNORMAL FINDING OF LUNG FIELD SNOMED Code(s): 949230745 (3) Bradycardia Current Visit: No Status: Acute Code(s): R00.1 - BRADYCARDIA, UNSPECIFIED SNOMED Code(s): 14247447 Plan: PEA arrest -Developed bradycardia while being transition from BiPAP earlier this morning -Underwent 2 rounds of CPR with epinephrine given and ROSC achieved -Blood close was low at this time, measuring 25 -He is currently intubated and sedated on 0.02 mcg/kg of Levophed -Management per primary and ICU teams Lung and liver lesions -Seen on imaging recently at [facility]. Plans were for follow- up PET CT scan and referral for biopsy -Bilirubin currently normal though urine is very dark. LFTs elevated. Abd US Reporting the liver is heterogenous questioning mets versus transplant surgical changes. Postoperative dilation of the common bile duct was reported as well -Consult placed for Interventional Radiology to review the case and see if liver biopsy is possible. Did note that the patient is a liver transplant -Liver biopsy had been planned for 07/25/2023 due to prior aspirin use -This may have to be delayed given his current course in the ICU -Liver doctor at the [facility] in [place] Dr. Lemus phone [phone] Low back pain, complicated by acute metabolic encephalopathy -Patient was placed on fentanyl and [place] on discharge from [facility]. Patient feels he has some control over his pain but, he is using IV pain medications rather frequently in the ER -Had increased confusion with Dilaudid over the evening of 07/20/2023 -This improved with Narcan on 07/21/2023 -Transdermal fentanyl increased to 75 mcg on 07/21/2023 -This can be maintained for now and likely did not contribute to his acute episode of bradycardia Lana Wise MD
[2023-07-22 16:08] LABS: Glucose,Whole Blood 187 mg/dL (70-110)
[2023-07-22 17:13] LABS: Glucose,Whole Blood 189 mg/dL (70-110)
[2023-07-22] MEDS: INSULIN ASPART (NovoLOG) 100 UNIT/ML VIAL SQ SCH (17:15)
[2023-07-22] MEDS: SODIUM CHLORIDE 0.9% 1,000 ML IV SCH (17:15)
--- NOTE | 2023-07-22 19:00 | P.NPCON ---
History of Present Illness - Reason for Consult Consult date: 07/22/23 - Chief Complaint SOB - History of Present Illness presents to the ED. He underwent right femoral to popliteal bypass with right common femoral thromboendarterectomy with Dr. Jones on 05/30. Since then, he reports dealing with abdominal pain and worsening lower back pain. He was admitted at [facility] from 07/12-07/17 for abdominal and lower back pain. The patient reports workup revealed lesions on his liver, kidney and lung. He had a difficult time with pain management requiring Dilaudid around the clock, eventually discharged on Fentanyl patch with PET scan scheduled in July ith Dr. Wise. He reports feeling immensely short of breath climbing a flight of stairs which prompted him to come to the ED. During his hospital stay he was placed on bipap for shortness of breath and during weaning trial he had episode of bradycardia and lost pulses with CPR started. He was intibated and transferred to ICU. Nephrology consulted due to transplant status. Vital signs are stable. On Levophed General: No acute distress. Intubated HEENT: Head exam is unremarkable. LUNGS: Diminished breath sounds HEART: Rate and Rhythm are regular. ABDOMEN: Nontender. EXTREMITITES: no edema. Review of Systems ROS unobtainable: due to endotracheal tube Past Medical History Past Medical History: GERD/Reflux, Hyperlipidemia, Hypertension, Liver Disease, Renal Disease, Vascular Disorder Additional Past Medical History / Comment(s): liver/kidney failure with transplant at [facility] in 2016, IDDM type II, PVD, gout History of Any Multi-Drug Resistant Organisms: None Reported Past Surgical History: Cholecystectomy, Orthopedic Surgery Additional Past Surgical History / Comment(s): kidney and liver transplant september 2015, rt rotator cuff, bilateral hip fractures/surgery, ERCP with stent/since removed, R chest port. Past Anesthesia/Blood Transfusion Reactions: No Reported Reaction Past Psychological History: No Psychological Hx Reported Smoking Status: Former smoker Past Alcohol Use History: None Reported Past Drug Use History: Heroin - Past Family History Mother Family Medical History: Diabetes Mellitus Father Family Medical History: No Reported History Brother(s) Family Medical History: Diabetes Mellitus Sister(s) Family Medical History: Diabetes Mellitus Daughter(s) Family Medical History: No Reported History Medications and Allergies Home Medications Medication Instructions Recorded Confirmed Type INSULIN ASPART (NovoLOG) [NovoLOG See Protocol SQ AC-TID 04/21/22 07/19/23 History (formulary)] Latanoprost [Latanoprost 0.005%] 1 drop BOTH EYES HS 04/21/22 07/19/23 History NIFEdipine [Adalat CC] 60 mg PO BID 04/21/22 07/19/23 History Omeprazole 20 mg PO QAM 04/21/22 07/19/23 History carvediloL [Coreg] 6.25 mg PO BID 04/21/22 07/19/23 History lamiVUDine [Epivir] 100 mg PO QAM 04/21/22 07/19/23 History mycophenolate mofetiL [Cellcept] 250 mg PO BID 04/21/22 07/19/23 History predniSONE 2 mg PO QAM 04/21/22 07/19/23 History ursodioL [Ursodiol] 300 mg PO TID 04/21/22 07/19/23 History Insulin Glargine,Hum.rec.anlog 20 units SQ HS 03/29/23 07/19/23 History [Lantus Solostar Pen] allopurinoL 100 mg PO QAM 03/29/23 07/19/23 History Prevagen Memory Supplement 1 dose PO DAILY 05/25/23 07/19/23 History Aspirin EC [Ecotrin Low Dose] 81 mg PO DAILY 07/19/23 07/19/23 History Calcium Carbonate/Vitamin D3 1 tab PO BID 07/19/23 07/19/23 History [Calcium 500 mg-Vit D3 5 mcg (200 Unit)] Cholecalciferol [Vitamin D3 (10 10 mcg PO DAILY 07/19/23 07/19/23 History Mcg = 400 Iu)] HYDROcodone/APAP 10-325MG [Galliano 1 tab PO Q6H PRN 07/19/23 07/19/23 History 10-325] Lactulose [Constulose] 20 gm PO BID PRN 07/19/23 07/19/23 History Magnesium Oxide [Mag-Ox] 400 mg PO DAILY 07/19/23 07/19/23 History Melatonin 6 mg PO HS 07/19/23 07/19/23 History Rosuvastatin Calcium 5 mg PO DAILY 07/19/23 07/19/23 History Sennosides/Docusate Sodium [Senna 1 tab PO BID 07/19/23 07/19/23 History Plus 8.6-50 mg Tablet] Tacrolimus [Prograf] 2 mg PO HS 07/19/23 07/19/23 History Tacrolimus [Prograf] 3 mg PO DAILY 07/19/23 07/19/23 History Timolol Maleate/Pf [Timoptic 0.25% 1 drop BOTH EYES BID 07/19/23 07/19/23 History Ocudose] fentaNYL 25MCG/HR PATCH [Duragesic 1 patch TRANSDERM Q72H 07/19/23 07/19/23 History 25MCG/HR] hydrALAZINE HCL 75 mg PO TID 07/19/23 07/19/23 History Allergies Allergy/AdvReac Type Severity Reaction Status Date / Time Penicillins Allergy Unknown Verified 07/19/23 15:21 tromethamine Allergy Unknown Verified 07/19/23 15:21 hydrocodone AdvReac see comment Verified 07/19/23 15:21 morphine AdvReac see comment Verified 07/19/23 15:21 NSAIDS (Non-Steroidal AdvReac Increased Verified 07/19/23 15:21 Anti-Inflamma creatine kinase level oxycodone AdvReac see comment Verified 07/19/23 15:21 Physical Exam Vitals: Vital Signs Temp Pulse Pulse Resp BP Pulse Ox FiO2 07/22/23 08:25 66 07/22/23 08:14 70 07/22/23 08:05 50 07/22/23 07:05 50 07/22/23 06:31 100 07/22/23 06:02 100 07/22/23 03:21 98.2 F 78 30 H 155/71 99 07/22/23 00:06 28 07/21/23 23:40 98.4 F 75 28 H 153/68 97 28 07/21/23 22:02 82 07/21/23 21:49 80 28 07/21/23 19:48 97.9 F 78 26 H 147/69 99 28 07/21/23 18:09 18 07/21/23 17:57 97.4 F L 80 18 146/69 99 28 07/21/23 15:52 28 07/21/23 14:34 35 07/21/23 13:32 84 07/21/23 13:21 80 Intake and Output 07/21/23 07/22/23 07/22/23 22:59 06:59 14:59 Intake Total 0 6.258 1154.932 Output Total 500 100 Balance 0 -198.947 5975.932 Intake: IV 1075 Dextrose 5%-0.45% NaCl 1, 75 000 ml @ 75 mls/hr IV . [id number] MARCEL Rx#:[id number] propofoL 1,000 mg In 1000 Empty Bag 1 bag @ 15 MCG/ KG/MIN 7.267 mls/hr IV . [id number] MARCEL Rx#:[id number] Intake, IV Titration 6.258 79.932 Amount propofoL 1,000 mg In 6.258 79.932 Empty Bag 1 bag @ 15 MCG/ KG/MIN 7.267 mls/hr IV . [id number] MARCEL Rx#:[id number] Oral 0 Output: Urine 500 100 Other: Voiding Method External Catheter External Catheter Results - Lab Results Most recent lab results ABG pH 7.26 (7.35-7.45) L 07/22/23 06:39 ABG pCO2 42 mmHg (35-45) 07/22/23 06:39 ABG pO2 243 mmHg (83-108) H 07/22/23 06:39 ABG HCO3 19 mmol/L (21-25) L 07/22/23 06:39 ABG O2 Saturation 99.5 % (94-97) H 07/22/23 06:39 Calcium 8.5 mg/dL (8.4-10.2) 07/22/23 06:27 Magnesium 1.8 mg/dL (1.6-2.3) 07/22/23 06:27 07/22/23 06:27 07/22/23 06:27 Assessment and Plan Plan: Assessment: 1. Renal and Liver transplant status 2015 [facility]. Managed with Tacrolimus 3/2, CellCept, Prednisone. 2. CKD Stage IIIa due to solitary kidney and chronic KIM usse, Baseline creatinine 1.4-1.6 mg/dL. 3. AVDRF with hypoxia s/p CPA due to bradycardia. 4. HTN with CKD 5. Possibly metastatic CA 6. Anemia with CKD 7. Metabolic Acidosis with Septic Shock , Plan: Check UA, strict I/O's. Hold CellCept, continue tacrolimus and prednisone for now. Creatinine seems to be around baseline level, urine output decreasing this afternoon. Monitor bicarb, may need to start replacement if does nto improve. Wean pressors, vent per ICU. Tacrolimus level 07/20 high at 22, goal 3-5, level was not appropriately drawn as it needs to be taken 12 hours after dose before next dose is given. Will likely repeat Tacrolimus levels on Monday as his dosing was off today due to cardiac arrest event.
[2023-07-22 20:58] LABS: Glucose,Whole Blood 173 mg/dL (70-110)
--- NOTE | 2023-07-22 23:14 | P.CONS ---
History of Present Illness - Reason for Consult Consult date: 07/22/23 - History of Present Illness Patient is a 72-year-old male with a past medical history negative for hypertension hyperlipidemia reflux, end-stage renal disease s/p renal and liver transplant patient recently did have right femoral to popliteal bypass with right common femoral thrombectomy and since then has been dealing with the abdominal and worsening back pain with recent admission to [facility] for the same reason with the patient was noticed to have a lesion on the liver kidney and lung for the patient was supposed to get a PET scan in the outpatient setting patient has been brought into the [facility] ER 3 days ago for evaluation of increasing shortness of breath patient on presentation to the hospital was afebrile and no fever have recorded subsequently patient did have vital of 16,000 BUN/creatinine mildly elevated procalcitonin 4.10 urine negative influenza RSV COVID testing was negative chest x-ray on admission was no acute cardiopulmonary process patient did have a cardiac arrest earlier this morning when the patient was being weaned from the BiPAP patient become bradycardic and lost pulse patient got intubated and has been admitted to the ICU patient did have a repeat chest x-ray possible left midlung nodularity infectious was consulted for further management most inform ation has been obtained from review of the chart as the patient is currently intubated on the vent and cannot provide any history Past Medical History Past Medical History: GERD/Reflux, Hyperlipidemia, Hypertension, Liver Disease, Renal Disease, Vascular Disorder Additional Past Medical History / Comment(s): liver/kidney failure with transplant at [facility] in 2016, IDDM type II, PVD, gout History of Any Multi-Drug Resistant Organisms: None Reported Past Surgical History: Cholecystectomy, Orthopedic Surgery Additional Past Surgical History / Comment(s): kidney and liver transplant september 2015, rt rotator cuff, bilateral hip fractures/surgery, ERCP with stent/since removed, R chest port. Past Anesthesia/Blood Transfusion Reactions: No Reported Reaction Past Psychological History: No Psychological Hx Reported Smoking Status: Former smoker Past Alcohol Use History: None Reported Past Drug Use History: Heroin - Past Family History Mother Family Medical History: Diabetes Mellitus Father Family Medical History: No Reported History Brother(s) Family Medical History: Diabetes Mellitus Sister(s) Family Medical History: Diabetes Mellitus Daughter(s) Family Medical History: No Reported History Medications and Allergies Home Medications Medication Instructions Recorded Confirmed Type INSULIN ASPART (NovoLOG) [NovoLOG See Protocol SQ AC-TID 04/21/22 07/19/23 History (formulary)] Latanoprost [Latanoprost 0.005%] 1 drop BOTH EYES HS 04/21/22 07/19/23 History NIFEdipine [Adalat CC] 60 mg PO BID 04/21/22 07/19/23 History Omeprazole 20 mg PO QAM 04/21/22 07/19/23 History carvediloL [Coreg] 6.25 mg PO BID 04/21/22 07/19/23 History lamiVUDine [Epivir] 100 mg PO QAM 04/21/22 07/19/23 History mycophenolate mofetiL [Cellcept] 250 mg PO BID 04/21/22 07/19/23 History predniSONE 2 mg PO QAM 04/21/22 07/19/23 History ursodioL [Ursodiol] 300 mg PO TID 04/21/22 07/19/23 History Insulin Glargine,Hum.rec.anlog 20 units SQ HS 03/29/23 07/19/23 History [Lantus Solostar Pen] allopurinoL 100 mg PO QAM 03/29/23 07/19/23 History Prevagen Memory Supplement 1 dose PO DAILY 05/25/23 07/19/23 History Aspirin EC [Ecotrin Low Dose] 81 mg PO DAILY 07/19/23 07/19/23 History Calcium Carbonate/Vitamin D3 1 tab PO BID 07/19/23 07/19/23 History [Calcium 500 mg-Vit D3 5 mcg (200 Unit)] Cholecalciferol [Vitamin D3 (10 10 mcg PO DAILY 07/19/23 07/19/23 History Mcg = 400 Iu)] HYDROcodone/APAP 10-325MG [Clark 1 tab PO Q6H PRN 07/19/23 07/19/23 History 10-325] Lactulose [Constulose] 20 gm PO BID PRN 07/19/23 07/19/23 History Magnesium Oxide [Mag-Ox] 400 mg PO DAILY 07/19/23 07/19/23 History Melatonin 6 mg PO HS 07/19/23 07/19/23 History Rosuvastatin Calcium 5 mg PO DAILY 07/19/23 07/19/23 History Sennosides/Docusate Sodium [Senna 1 tab PO BID 07/19/23 07/19/23 History Plus 8.6-50 mg Tablet] Tacrolimus [Prograf] 2 mg PO HS 07/19/23 07/19/23 History Tacrolimus [Prograf] 3 mg PO DAILY 07/19/23 07/19/23 History Timolol Maleate/Pf [Timoptic 0.25% 1 drop BOTH EYES BID 07/19/23 07/19/23 History Ocudose] fentaNYL 25MCG/HR PATCH [Duragesic 1 patch TRANSDERM Q72H 07/19/23 07/19/23 History 25MCG/HR] hydrALAZINE HCL 75 mg PO TID 07/19/23 07/19/23 History Allergies Allergy/AdvReac Type Severity Reaction Status Date / Time Penicillins Allergy Unknown Verified 07/19/23 15:21 tromethamine Allergy Unknown Verified 07/19/23 15:21 hydrocodone AdvReac see comment Verified 07/19/23 15:21 morphine AdvReac see comment Verified 07/19/23 15:21 NSAIDS (Non-Steroidal AdvReac Increased Verified 07/19/23 15:21 Anti-Inflamma creatine kinase level oxycodone AdvReac see comment Verified 07/19/23 15:21 Physical Exam Vitals: Vital Signs Temp Pulse Pulse Resp BP BP Pulse Ox 07/22/23 08:25 66 07/22/23 08:14 70 07/22/23 08:05 07/22/23 07:05 07/22/23 06:31 07/22/23 06:02 07/22/23 03:21 98.2 F 78 30 H 155/71 99 07/22/23 00:06 07/21/23 23:40 98.4 F 75 28 H 153/68 97 07/21/23 22:02 82 07/21/23 21:49 80 07/21/23 19:48 97.9 F 78 26 H 147/69 99 07/21/23 18:09 18 07/21/23 17:57 97.4 F L 80 18 146/69 99 07/21/23 15:52 07/21/23 14:34 07/21/23 13:32 84 07/21/23 13:21 80 07/21/23 10:38 16 07/21/23 10:14 75 24 140/73 97 FiO2 07/22/23 08:25 07/22/23 08:14 07/22/23 08:05 50 07/22/23 07:05 50 07/22/23 06:31 100 07/22/23 06:02 100 07/22/23 03:21 07/22/23 00:06 28 07/21/23 23:40 28 07/21/23 22:02 07/21/23 21:49 28 07/21/23 19:48 28 07/21/23 18:09 07/21/23 17:57 28 07/21/23 15:52 28 07/21/23 14:34 35 07/21/23 13:32 07/21/23 13:21 07/21/23 10:38 07/21/23 10:14 Intake and Output 07/21/23 07/22/23 07/22/23 22:59 06:59 14:59 Intake Total 0 6.258 1096.920 Output Total 500 100 Balance 0 -493.742 996.920 Intake: IV 1075 Dextrose 5%-0.45% NaCl 1, 75 000 ml @ 75 mls/hr IV . [id number] MARCEL Rx#:[id number] propofoL 1,000 mg In 1000 Empty Bag 1 bag @ 15 MCG/ KG/MIN 7.267 mls/hr IV . [id number] MARCEL Rx#:[id number] Intake, IV Titration 6.258 21.920 Amount propofoL 1,000 mg In 6.258 21.920 Empty Bag 1 bag @ 15 MCG/ KG/MIN 7.267 mls/hr IV . [id number] MARCEL Rx#:[id number] Oral 0 Output: Urine 500 100 Other: Voiding Method External Catheter External Catheter Results CBC & Chem 7: 07/22/23 06:27 07/22/23 06:27 Labs: Abnormal Lab Results - Last 24 Hours (Table) 07/21/23 07/21/23 07/21/23 Range/Units 08:38 14:44 17:28 WBC (3.8-10.6) k/uL RBC (4.30-5.90) m/uL Hgb (13.0-17.5) gm/dL Hct (39.0-53.0) % MCHC (31.0-37.0) g/dL Neutrophils # (1.3-7.7) k/uL ABG pH 7.30 L (7.35-7.45) ABG pO2 124 H (83-108) mmHg ABG HCO3 18 L (21-25) mmol/L ABG O2 Saturation 98.6 H (94-97) % Sodium (137-145) mmol/L Potassium (3.5-5.1) mmol/L Carbon Dioxide (22-30) mmol/L BUN (9-20) mg/dL Creatinine (0.66-1.25) mg/dL Glucose (74-99) mg/dL POC Glucose (mg/dL) 164 H (70-110) mg/dL AST (17-59) U/L ALT (4-49) U/L Alkaline Phosphatase (38-126) U/L Total Protein (6.3-8.2) g/dL Albumin (3.5-5.0) g/dL Procalcitonin 4.10 H (0.02-0.09) ng/mL 07/21/23 07/22/23 07/22/23 Range/Units 20:02 05:46 05:53 WBC (3.8-10.6) k/uL RBC (4.30-5.90) m/uL Hgb (13.0-17.5) gm/dL Hct (39.0-53.0) % MCHC (31.0-37.0) g/dL Neutrophils # (1.3-7.7) k/uL ABG pH (7.35-7.45) ABG pO2 (83-108) mmHg ABG HCO3 (21-25) mmol/L ABG O2 Saturation (94-97) % Sodium (137-145) mmol/L Potassium (3.5-5.1) mmol/L Carbon Dioxide (22-30) mmol/L BUN (9-20) mg/dL Creatinine (0.66-1.25) mg/dL Glucose (74-99) mg/dL POC Glucose (mg/dL) 152 H 25 L 116 H (70-110) mg/dL AST (17-59) U/L ALT (4-49) U/L Alkaline Phosphatase (38-126) U/L Total Protein (6.3-8.2) g/dL Albumin (3.5-5.0) g/dL Procalcitonin (0.02-0.09) ng/mL 07/22/23 07/22/23 Range/Units 06:27 06:27 WBC 19.4 H (3.8-10.6) k/uL RBC 2.84 L (4.30-5.90) m/uL Hgb 8.2 L (13.0-17.5) gm/dL Hct 27.3 L (39.0-53.0) % MCHC 30.0 L (31.0-37.0) g/dL Neutrophils # 16.7 H (1.3-7.7) k/uL ABG pH (7.35-7.45) ABG pO2 (83-108) mmHg ABG HCO3 (21-25) mmol/L ABG O2 Saturation (94-97) % Sodium 131 L (137-145) mmol/L Potassium 5.2 H (3.5-5.1) mmol/L Carbon Dioxide 17 L (22-30) mmol/L BUN 31 H (9-20) mg/dL Creatinine 1.46 H (0.66-1.25) mg/dL Glucose 120 H (74-99) mg/dL POC Glucose (mg/dL) (70-110) mg/dL AST 138 H (17-59) U/L ALT 87 H (4-49) U/L Alkaline Phosphatase 620 H (38-126) U/L Total Protein 4.9 L (6.3-8.2) g/dL Albumin 2.3 L (3.5-5.0) g/dL Procalcitonin (0.02-0.09) ng/mL Assessment and Plan Plan: 1patient with acute respiratory failure which is likely multifactorial in this patient who did have a cardiac arrest this morning patient did have elevated procalcitonin and a possible component of pneumonia not entirely excluded possible gram-negative 2-we will check a sputum for Gram stain and culture and follow-up on the blood culture 3-we will add cefepime 2 g every 8 hours while waiting for the culture to finalize We will follow on clinical condition and cultures to further adjust medication if needed Thank you for this consultation we will follow the patient along with you Dictation was produced using [employer] dictation software. please excuse any grammatical, word or spelling errors. Time with Patient: Greater than 30
[2023-07-22 23:44] LABS: Glucose,Whole Blood 173 mg/dL (70-110)
[2023-07-23 04:15] LABS: Glucose,Whole Blood 190 mg/dL (70-110)
[2023-07-23 05:16] LABS: African American GFR (CKD) 62 (>60 ml/min/1.73 sqM); Anion Gap 6 mmol/L; Blood Urea Nitrogen 32 mg/dL (9-20); Carbon Dioxide 15 mmol/L (22-30); Chloride 106 mmol/L (98-107); Glucose 179 mg/dL (74-99); Non-African American GFR(CKD) 54 (>60 ml/min/1.73 sqM); Sodium 127 mmol/L (137-145)
[2023-07-23 05:30] LABS: ABG Base Excess -9.7 mmol/L; ABG HCO3 17 mmol/L (21-25); ABG PCO2 33 mmHg (35-45); ABG PH 7.31 (7.35-7.45); ABG PO2 176 mmHg (83-108); ABG TCO2 18 mmol/L (19-24)
[2023-07-23 05:51] LABS: Basophils % (A) 0 %; Eosinophils # (A) 0.1 k/uL (0-0.7); Eosinophils % (A) 1 %; HCT 25.4 % (39.0-53.0); HGB 7.9 gm/dL (13.0-17.5); Hypochromasia Moderate; Lymphocytes # (A) 0.7 k/uL (1.0-4.8); Lymphocytes % (A) 6 %; MCH 29.3 pg (25.0-35.0); MCV 94.5 fL (80.0-100.0); Mean Platelet Volume 7.8; Monocytes # (A) 0.4 k/uL (0-1.0); Monocytes % (A) 3 %; Neutrophils # (A) 11.7 k/uL (1.3-7.7); Neutrophils % (A) 89 %; Platelet Count 189 k/uL (150-450); RBC 2.69 m/uL (4.30-5.90); WBC 13.1 k/uL (3.8-10.6)
[2023-07-23 06:00] LABS: Allen Test Performed? no
[2023-07-23 07:36] LABS: Glucose,Whole Blood 185 mg/dL (70-110)
[2023-07-23] MEDS: SODIUM BICARBONATE TAB 650 MG TAB PO SCH (09:43)
[2023-07-23] MEDS: ACETAMINOPHEN IV (For NPO) 1,000 MG in EMPTY BAG 1 BAG IVPB STA (10:39)
--- NOTE | 2023-07-23 10:48 | P.PN ---
Subjective Progress Note Date: 07/23/23 Patient seen in follow-up for kidney transplant. No acute events over night per nursing. Patient undergoing weaning trial. Vital signs are stable. Off Levophed General: No acute distress. Intubated HEENT: Head exam is unremarkable. LUNGS: Diminished breath sounds HEART: Rate and Rhythm are regular. ABDOMEN: Nontender. EXTREMITITES: no edema. Objective - Vital Signs Vital signs: Vital Signs Temp 97.7 F 07/23/23 04:00 Pulse 62 07/23/23 08:29 Resp 24 07/23/23 07:00 BP 124/66 07/23/23 07:00 Pulse Ox 100 07/23/23 07:00 FiO2 50 07/23/23 08:09 Intake & Output 07/22/23 07/23/23 07/23/23 18:59 06:59 18:59 Intake Total 2384.116 1506.864 108 Output Total 455 470 25 Balance 4638.083 2032.864 83 Weight 80.739 kg 88 kg Intake: IV 2033 1036 78 0.9 150 900 75 Cefepime 2 gm In Sodium 100 100 Chloride 0.9% 100 ml @ 25 mls/hr IVPB Q12HR MARCEL Rx #:[id number] Dextrose 5%-0.45% NaCl 1, 750 000 ml @ 75 mls/hr IV . [id number] MARCEL Rx#:[id number] pressure bag 33 36 3 propofoL 1,000 mg In 1000 Empty Bag 1 bag @ 15 MCG/ KG/MIN 7.267 mls/hr IV . [id number] MARCEL Rx#:[id number] Intake, IV Titration 271.116 190.864 Amount Norepinephrine 8 mg In 13.514 Sodium Chloride 0.9% 250 ml @ 0.03 MCG/KG/MIN 4. 687 mls/hr IV .Q24H MARCEL Rx#:[id number] propofoL 1,000 mg In 257.602 190.864 Empty Bag 1 bag @ 15 MCG/ KG/MIN 7.267 mls/hr IV . [id number] MARCEL Rx#:[id number] Tube Feeding 50 220 30 Other 30 60 Output: Gastric Drainage 150 Urine 305 470 25 Other: Voiding Method Indwelling Catheter Indwelling Catheter ABP, PAP, CO, CI - Last Documented Arterial Blood Pressure 135/53 - Labs CBC & Chem 7: 07/23/23 04:40 07/23/23 04:40 Labs: Abnormal Lab Results - Last 24 Hours (Table) 07/21/23 07/21/23 07/22/23 Range/Units 08:38 17:40 06:39 WBC (3.8-10.6) k/uL RBC (4.30-5.90) m/uL Hgb (13.0-17.5) gm/dL Hct (39.0-53.0) % Neutrophils # (1.3-7.7) k/uL Lymphocytes # (1.0-4.8) k/uL ABG pH 7.26 L (7.35-7.45) ABG pCO2 (35-45) mmHg ABG pO2 243 H (83-108) mmHg ABG HCO3 19 L (21-25) mmol/L ABG Total CO2 (19-24) mmol/L ABG O2 Saturation 99.5 H (94-97) % Sodium (137-145) mmol/L Carbon Dioxide (22-30) mmol/L BUN (9-20) mg/dL Creatinine (0.66-1.25) mg/dL Glucose (74-99) mg/dL POC Glucose (mg/dL) (70-110) mg/dL Osmolality 304 H (275-295) mOsm/kg Calcium (8.4-10.2) mg/dL Urine Protein (Negative) Amorphous Sediment (None) /hpf Urine Mucus (None) /hpf Tacrolimus 22.4 H (5.0-20.0) ng/mL 07/22/23 07/22/23 07/22/23 Range/Units 10:40 11:12 11:58 WBC (3.8-10.6) k/uL RBC (4.30-5.90) m/uL Hgb (13.0-17.5) gm/dL Hct (39.0-53.0) % Neutrophils # (1.3-7.7) k/uL Lymphocytes # (1.0-4.8) k/uL ABG pH (7.35-7.45) ABG pCO2 (35-45) mmHg ABG pO2 (83-108) mmHg ABG HCO3 (21-25) mmol/L ABG Total CO2 (19-24) mmol/L ABG O2 Saturation (94-97) % Sodium (137-145) mmol/L Carbon Dioxide (22-30) mmol/L BUN (9-20) mg/dL Creatinine (0.66-1.25) mg/dL Glucose (74-99) mg/dL POC Glucose (mg/dL) 126 H 128 H (70-110) mg/dL Osmolality (275-295) mOsm/kg Calcium (8.4-10.2) mg/dL Urine Protein 1+ H (Negative) Amorphous Sediment Rare H (None) /hpf Urine Mucus Rare H (None) /hpf Tacrolimus (5.0-20.0) ng/mL 07/22/23 07/22/23 07/22/23 Range/Units 14:15 16:06 17:11 WBC (3.8-10.6) k/uL RBC (4.30-5.90) m/uL Hgb (13.0-17.5) gm/dL Hct (39.0-53.0) % Neutrophils # (1.3-7.7) k/uL Lymphocytes # (1.0-4.8) k/uL ABG pH (7.35-7.45) ABG pCO2 (35-45) mmHg ABG pO2 (83-108) mmHg ABG HCO3 (21-25) mmol/L ABG Total CO2 (19-24) mmol/L ABG O2 Saturation (94-97) % Sodium (137-145) mmol/L Carbon Dioxide (22-30) mmol/L BUN (9-20) mg/dL Creatinine (0.66-1.25) mg/dL Glucose (74-99) mg/dL POC Glucose (mg/dL) 148 H 187 H 189 H (70-110) mg/dL Osmolality (275-295) mOsm/kg Calcium (8.4-10.2) mg/dL Urine Protein (Negative) Amorphous Sediment (None) /hpf Urine Mucus (None) /hpf Tacrolimus (5.0-20.0) ng/mL 07/22/23 07/22/23 07/23/23 Range/Units 20:57 23:43 04:13 WBC (3.8-10.6) k/uL RBC (4.30-5.90) m/uL Hgb (13.0-17.5) gm/dL Hct (39.0-53.0) % Neutrophils # (1.3-7.7) k/uL Lymphocytes # (1.0-4.8) k/uL ABG pH (7.35-7.45) ABG pCO2 (35-45) mmHg ABG pO2 (83-108) mmHg ABG HCO3 (21-25) mmol/L ABG Total CO2 (19-24) mmol/L ABG O2 Saturation (94-97) % Sodium (137-145) mmol/L Carbon Dioxide (22-30) mmol/L BUN (9-20) mg/dL Creatinine (0.66-1.25) mg/dL Glucose (74-99) mg/dL POC Glucose (mg/dL) 173 H 173 H 190 H (70-110) mg/dL Osmolality (275-295) mOsm/kg Calcium (8.4-10.2) mg/dL Urine Protein (Negative) Amorphous Sediment (None) /hpf Urine Mucus (None) /hpf Tacrolimus (5.0-20.0) ng/mL 07/23/23 07/23/23 07/23/23 Range/Units 04:40 04:40 05:28 WBC 13.1 H (3.8-10.6) k/uL RBC 2.69 L (4.30-5.90) m/uL Hgb 7.9 L (13.0-17.5) gm/dL Hct 25.4 L (39.0-53.0) % Neutrophils # 11.7 H (1.3-7.7) k/uL Lymphocytes # 0.7 L (1.0-4.8) k/uL ABG pH 7.31 L (7.35-7.45) ABG pCO2 33 L (35-45) mmHg ABG pO2 176 H (83-108) mmHg ABG HCO3 17 L (21-25) mmol/L ABG Total CO2 18 L (19-24) mmol/L ABG O2 Saturation 99.0 H (94-97) % Sodium 127 L (137-145) mmol/L Carbon Dioxide 15 L (22-30) mmol/L BUN 32 H (9-20) mg/dL Creatinine 1.32 H (0.66-1.25) mg/dL Glucose 179 H (74-99) mg/dL POC Glucose (mg/dL) (70-110) mg/dL Osmolality (275-295) mOsm/kg Calcium 8.0 L (8.4-10.2) mg/dL Urine Protein (Negative) Amorphous Sediment (None) /hpf Urine Mucus (None) /hpf Tacrolimus (5.0-20.0) ng/mL 07/23/23 Range/Units 07:34 WBC (3.8-10.6) k/uL RBC (4.30-5.90) m/uL Hgb (13.0-17.5) gm/dL Hct (39.0-53.0) % Neutrophils # (1.3-7.7) k/uL Lymphocytes # (1.0-4.8) k/uL ABG pH (7.35-7.45) ABG pCO2 (35-45) mmHg ABG pO2 (83-108) mmHg ABG HCO3 (21-25) mmol/L ABG Total CO2 (19-24) mmol/L ABG O2 Saturation (94-97) % Sodium (137-145) mmol/L Carbon Dioxide (22-30) mmol/L BUN (9-20) mg/dL Creatinine (0.66-1.25) mg/dL Glucose (74-99) mg/dL POC Glucose (mg/dL) 185 H (70-110) mg/dL Osmolality (275-295) mOsm/kg Calcium (8.4-10.2) mg/dL Urine Protein (Negative) Amorphous Sediment (None) /hpf Urine Mucus (None) /hpf Tacrolimus (5.0-20.0) ng/mL Assessment and Plan Plan: Assessment: 1. Renal and Liver transplant status 2015 [facility]. Managed with Tacrolimus 3/2, CellCept, Prednisone. 2. CKD Stage IIIa due to solitary kidney and chronic KIM usse, Baseline creatinine 1.4-1.6 mg/dL. 3. AVDRF with hypoxia s/p CPA due to bradycardia. 4. HTN with CKD 5. Possibly metastatic CA vs Infectious. 6. Anemia with CKD 7. Metabolic Acidosis with Septic Shock Plan: Hold CellCept, continue tacrolimus and prednisone. Creatinine seems to be around baseline level, urine output remains good. Wean pressors, vent per ICU. Start sodium bicarb PO. Tacrolimus level 07/20 high at 22, goal 3-5, level was not appropriately drawn as it needs to be taken 12 hours after dose before next dose is given. Repeat Tacrolimus levels on Monday.
[2023-07-23 11:26] LABS: Glucose,Whole Blood 201 mg/dL (70-110)
--- NOTE | 2023-07-23 12:06 | P.PN ---
Subjective Progress Note Date: 07/23/23 Principal diagnosis: Cardiopulmonary arrest. Pulmonary consult dated July 21, 2023. 72-year-old black male, who [facility], is seen in the emergency department, on July 18, for shortness of breath. The patient apparently has been having shortness of breath, since being discharged from [facility]. Recently, the patient was started on a fentanyl patch for back pain, but denies all other medications. He apparently was admitted at the other hospital, for total of 4 days according to his , and was found to have some lesions on his liver and lung. The patient is apparently awaiting an outpatient PET scan. He did see one of the cancer doctors at the other facility. Currently, the patient is seen in ER room 28. The patient is currently on BiPAP, with settings of 12/6 and 28%. According to his he has a history of liver and kidney transplantation. He is getting saline at 75 cc an hour. He apparently had a chest x-ray that was interpreted as normal, and a VQ scan that was interpreted as being very low probability for pulmonary embolism. He does not use oxygen at home. He quit smoking 43 years ago. He had a blood gas showing a pO2 of 124, pCO2 of 35, and a pH of 7.30. This is consistent with metabolic acidosis. His other medical history includes gastroesophageal reflux disease, hypertension, hyperlipidemia, liver kidney transplant at [facility] in 2016, diabetes, and gout. The patient is a former smoker, having quit some 43 years ago as mentioned above. Current labs include a white count of 16.2, hemoglobin 8.4, hematocrit 27.6, and a platelet count of 268,000. Sodium 126, potassium 5.2, chlorides 102, CO2 18, BUN 35, and creatinine 1.63. Calcium is 8.5. Glucose is 161. The patient has a nonanion gap metabolic acidosis, likely from his renal insufficiency/failure. The patient has a couple different chest x- rays, which did not show acute cardiopulmonary disease. Progress note dated July 22, 2023. The patient was seen yesterday in consultation, when he was in the emergency department. The patient was admitted to the floor. Sometime early this morning, the patient developed bradycardia, and pulseless electrical activity. At that time, the patient's blood glucose was only 25. The patient was intubated, for respiratory failure, transferred to the intensive care unit. He is currently in the ICU, on the ventilator. Settings include volume assist- control, rate 20, tidal volume 450, FiO2 50%, PEEP of 5. Blood gases show pO2 of 243, pCO2 42, and a pH of 7.25. The patient is getting dextrose with half- normal saline at 75 cc an hour, propofol at 50 mcg/kg/min. He remains on Levaquin. His procalcitonin level was elevated at 4.10. Current labs include a white count 19.4, hemoglobin 8.2, hematocrit 27.3, and a platelet count of 262,000. Sodium 131, potassium 5.2, chlorides 104, CO2 17, anion gap 10, BUN 31, and creatinine 1.46. Glucose is 120. AST is 138. ALT is 87. Alkaline phosphatase is 620. Procalcitonin level was 4.10. He tested negative for influenza, RSV, and coronavirus. Chest x-ray shows the tip of the central venous catheter, at the junction of the superior vena cava and right atrium. Chest x-ray also suggest some pulmonary vascular congestion. Progress note dated July 23, 2023. 72-year-old black male, seen in follow-up, room 259. The patient remains on the mechanical ventilator. Current vent settings include volume assist-control, rate 20, tidal volume 450, FiO2 50%. PEEP of 5. Blood gases show pO2 176, pCO2 33, pH is 7.31. The patient is getting saline at 75 cc an hour, propofol at 40 mcg/kg/min. Currently, norepinephrine is on hold. He is getting vital AF at 30, with a goal of 42. He continues on cefepime. We did attempt a daily interruption of sedation, but he did poorly and, we could not do a spontaneous breathing trial. He was placed back on the ventilator. Current labs include a white count of 13.1, hemoglobin 7.9, hematocrit 25.4, and a normal platelet c ount. Sodium 127, potassium 5, chlorides 106, CO2 15, BUN 32, creatinine 1.32. Glucose is 185. Calcium is 8. Chest x-ray shows a properly positioned endotracheal tube. In addition, there may be an infiltrate in the right lung, with volume loss in the right lung, and a small right-sided pleural effusion. Objective - Vital Signs Vital signs: Vital Signs Temp 97.6 F 07/23/23 08:00 Pulse 68 07/23/23 11:00 Resp 25 H 07/23/23 11:00 BP 139/67 07/23/23 11:00 Pulse Ox 100 07/23/23 11:00 FiO2 40 07/23/23 09:00 Intake & Output 07/22/23 07/23/23 07/23/23 18:59 06:59 18:59 Intake Total 2384.116 1506.864 733.481 Output Total 455 470 65 Balance 3989.853 3092.864 668.481 Weight 80.739 kg 88 kg Intake: IV 2033 1036 435 0.9 150 900 320 Cefepime 2 gm In Sodium 100 100 100 Chloride 0.9% 100 ml @ 25 mls/hr IVPB Q12HR MARCEL Rx #:[id number] Dextrose 5%-0.45% NaCl 1, 750 000 ml @ 75 mls/hr IV . [id number] MARCEL Rx#:[id number] pressure bag 33 36 15 propofoL 1,000 mg In 1000 Empty Bag 1 bag @ 15 MCG/ KG/MIN 7.267 mls/hr IV . [id number] MARCEL Rx#:[id number] Intake, IV Titration 271.116 190.864 118.481 Amount Norepinephrine 8 mg In 13.514 Sodium Chloride 0.9% 250 ml @ 0.03 MCG/KG/MIN 4. 687 mls/hr IV .Q24H MARCEL Rx#:[id number] propofoL 1,000 mg In 257.602 190.864 118.481 Empty Bag 1 bag @ 15 MCG/ KG/MIN 7.267 mls/hr IV . [id number] MARCEL Rx#:[id number] Tube Feeding 50 220 150 Other 30 60 30 Output: Gastric Drainage 150 Urine 305 470 65 Other: Voiding Method Indwelling Catheter Indwelling Catheter Indwelling Catheter ABP, PAP, CO, CI - Last Documented Arterial Blood Pressure 164/58 - Exam No acute distress, intubated, and sedated. HEENT examination is grossly unremarkable. Neck supple. Full range of motion. No adenopathy thyromegaly or neck vein distention. Cardiovascular examination reveals regular rhythm rate. S1-S2 normal. No S3 or S4. No discernible murmur noted. Heart sounds are distant. Heart rate 88 bpm. Lungs reveal clear breath sounds. Breath sounds are equal bilaterally. No adventitious lung sounds including wheezes rhonchi or crackles. Saturations are 100%. Abdomen soft bowel sounds are heard. No masses or tenderness. Extremities are intact. No cyanosis clubbing or edema. Skin is without rash or lesion. Neurologic examination cannot be assessed at this time. - Labs CBC & Chem 7: 07/23/23 04:40 07/23/23 04:40 Labs: Abnormal Lab Results - Last 24 Hours (Table) 07/21/23 07/22/23 07/22/23 Range/Units 17:40 11:12 14:15 WBC (3.8-10.6) k/uL RBC (4.30-5.90) m/uL Hgb (13.0-17.5) gm/dL Hct (39.0-53.0) % Neutrophils # (1.3-7.7) k/uL Lymphocytes # (1.0-4.8) k/uL ABG pH (7.35-7.45) ABG pCO2 (35-45) mmHg ABG pO2 (83-108) mmHg ABG HCO3 (21-25) mmol/L ABG Total CO2 (19-24) mmol/L ABG O2 Saturation (94-97) % Sodium (137-145) mmol/L Carbon Dioxide (22-30) mmol/L BUN (9-20) mg/dL Creatinine (0.66-1.25) mg/dL Glucose (74-99) mg/dL POC Glucose (mg/dL) 148 H (70-110) mg/dL Calcium (8.4-10.2) mg/dL Urine Protein 1+ H (Negative) Amorphous Sediment Rare H (None) /hpf Urine Mucus Rare H (None) /hpf Tacrolimus 22.4 H (5.0-20.0) ng/mL 07/22/23 07/22/23 07/22/23 Range/Units 16:06 17:11 20:57 WBC (3.8-10.6) k/uL RBC (4.30-5.90) m/uL Hgb (13.0-17.5) gm/dL Hct (39.0-53.0) % Neutrophils # (1.3-7.7) k/uL Lymphocytes # (1.0-4.8) k/uL ABG pH (7.35-7.45) ABG pCO2 (35-45) mmHg ABG pO2 (83-108) mmHg ABG HCO3 (21-25) mmol/L ABG Total CO2 (19-24) mmol/L ABG O2 Saturation (94-97) % Sodium (137-145) mmol/L Carbon Dioxide (22-30) mmol/L BUN (9-20) mg/dL Creatinine (0.66-1.25) mg/dL Glucose (74-99) mg/dL POC Glucose (mg/dL) 187 H 189 H 173 H (70-110) mg/dL Calcium (8.4-10.2) mg/dL Urine Protein (Negative) Amorphous Sediment (None) /hpf Urine Mucus (None) /hpf Tacrolimus (5.0-20.0) ng/mL 07/22/23 07/23/23 07/23/23 Range/Units 23:43 04:13 04:40 WBC 13.1 H (3.8-10.6) k/uL RBC 2.69 L (4.30-5.90) m/uL Hgb 7.9 L (13.0-17.5) gm/dL Hct 25.4 L (39.0-53.0) % Neutrophils # 11.7 H (1.3-7.7) k/uL Lymphocytes # 0.7 L (1.0-4.8) k/uL ABG pH (7.35-7.45) ABG pCO2 (35-45) mmHg ABG pO2 (83-108) mmHg ABG HCO3 (21-25) mmol/L ABG Total CO2 (19-24) mmol/L ABG O2 Saturation (94-97) % Sodium (137-145) mmol/L Carbon Dioxide (22-30) mmol/L BUN (9-20) mg/dL Creatinine (0.66-1.25) mg/dL Glucose (74-99) mg/dL POC Glucose (mg/dL) 173 H 190 H (70-110) mg/dL Calcium (8.4-10.2) mg/dL Urine Protein (Negative) Amorphous Sediment (None) /hpf Urine Mucus (None) /hpf Tacrolimus (5.0-20.0) ng/mL 07/23/23 07/23/23 07/23/23 Range/Units 04:40 05:28 07:34 WBC (3.8-10.6) k/uL RBC (4.30-5.90) m/uL Hgb (13.0-17.5) gm/dL Hct (39.0-53.0) % Neutrophils # (1.3-7.7) k/uL Lymphocytes # (1.0-4.8) k/uL ABG pH 7.31 L (7.35-7.45) ABG pCO2 33 L (35-45) mmHg ABG pO2 176 H (83-108) mmHg ABG HCO3 17 L (21-25) mmol/L ABG Total CO2 18 L (19-24) mmol/L ABG O2 Saturation 99.0 H (94-97) % Sodium 127 L (137-145) mmol/L Carbon Dioxide 15 L (22-30) mmol/L BUN 32 H (9-20) mg/dL Creatinine 1.32 H (0.66-1.25) mg/dL Glucose 179 H (74-99) mg/dL POC Glucose (mg/dL) 185 H (70-110) mg/dL Calcium 8.0 L (8.4-10.2) mg/dL Urine Protein (Negative) Amorphous Sediment (None) /hpf Urine Mucus (None) /hpf Tacrolimus (5.0-20.0) ng/mL 07/23/23 Range/Units 11:24 WBC (3.8-10.6) k/uL RBC (4.30-5.90) m/uL Hgb (13.0-17.5) gm/dL Hct (39.0-53.0) % Neutrophils # (1.3-7.7) k/uL Lymphocytes # (1.0-4.8) k/uL ABG pH (7.35-7.45) ABG pCO2 (35-45) mmHg ABG pO2 (83-108) mmHg ABG HCO3 (21-25) mmol/L ABG Total CO2 (19-24) mmol/L ABG O2 Saturation (94-97) % Sodium (137-145) mmol/L Carbon Dioxide (22-30) mmol/L BUN (9-20) mg/dL Creatinine (0.66-1.25) mg/dL Glucose (74-99) mg/dL POC Glucose (mg/dL) 201 H (70-110) mg/dL Calcium (8.4-10.2) mg/dL Urine Protein (Negative) Amorphous Sediment (None) /hpf Urine Mucus (None) /hpf Tacrolimus (5.0-20.0) ng/mL Assessment and Plan Assessment: Acute hypoxemic respiratory failure, requiring intubation and mechanical ventilation, on July 21, secondary to bradycardia, pulseless electrical activity, and hypoglycemia. Shortness of breath, relatively acute, of unclear etiology. Chest x-ray does not show anything acute, and the patient's ventilation/perfusion lung scan was interpreted as being very low probability for pulmonary embolism. History of kidney/liver transplantation, September 2015, at [facility]. Recent evaluation at [facility], which revealed nodules on his liver and lung, rule out PTLD. History of hypertension. History of hyperlipidemia. History of gastroesophageal reflux disease. History of diabetes. History of gout. Previous history of tobacco use. Plan: Plan dated July 21, 2023. The blood gas that was drawn, shows no evidence of metabolic acidosis. Based on his electrolyte profile, he has a non-anion gap metabolic acidosis, likely related to his renal dysfunction. The patient is currently on BiPAP, with settings of 12/6 and 28%. His chest x-ray was normal. His ventilation/perfusion lung scan was interpreted as being very low probability for pulmonary embolism. The patient continues on Prograf, prednisone, and Ce llCept, as immunosuppressive's for his transplantation. I will add some updrafts to his regimen. Additional recommendations and suggestions are forthcoming. We should try to obtain the scans that were done at the outside hospital. The patient apparently was set up for an outpatient PET scan. Pr ognosis is guarded. Plan dated July 22, 2023. The patient is seen in the intensive care unit today. Currently, the patient is on propofol at 50 mcg/kg/min, and dextrose with half-normal saline at 75 cc an hour. The patient continues on Levaquin. His procalcitonin level was elevated at 4.10. Blood gases show pO2 of 243, pCO2 of 42, pH is 7.25. This morning, the patient had an episode of bradycardia, pulseless electrical activity, and severe hypoglycemia. The patient was a CODE BLUE overhead, and was intubated, and transferred to the intensive care unit. Today, we placed a right femoral arterial line, and a left internal jugular triple-lumen catheter. Additional recommendations and suggestions are forthcoming. We will continue to follow make recommendations along the way. Plan dated July 23, 2023. The patient is seen today in room 259. We did attempt a daily interruption of sedation, to see if he was a candidate for spontaneous breathing trial, but the patient became very agitated, hypertensive, tachycardic, and tachypneic. He was placed back on sedation. Labs, x-rays, and medications are reviewed. The patient's FiO2 was dropped and 50%, down to 40%. The patient continues on cefepime. Labs, x-rays, and medications are reviewed. The patient continues on propofol, and tube feedings. Will get tube feedings up to goal. We will continue to follow make recommendations along the way. We have asked for the scans, and paperwork, from [facility]. Time with Patient: Greater than 30
--- NOTE | 2023-07-23 15:37 | XR ---
EXAM: XR chest 1V portable CLINICAL INDICATION:Male, 72 years old with history of Tube placement; LOCATED WITHIN [facility] COMPARISON: 07/22/2023 and before TECHNIQUE: Chest single view. FINDINGS: ET tube tip about 2.9 cm above the divine. NG/OG tube traverses below the diaphragm, extending into t he left abdomen with the tip beyond the field of view. Left chest MediPort and left IJ CVC both have their catheter tips over the cavoatrial junction. Multiple extrinsic densities project over the chest, including monitor leads, extrinsic portions of t ubing, and paraphernalia related to access of the left chest MediPort and CVC; these can interfere wi th interpretation. Stable CM silhouette. Heart borderline in size. Atherosclerotic calcifications of the aorta. Mild pulmonary vascular congestion again seen. Limited assessment due to patient's head position but there is no appreciable pneumothorax. Asymmetri c elevation right hemidiaphragm again noted, with similar right basilar opacity likely on the basis o f atelectasis. Previously suspected possible left midlung pulmonary nodularity is not clearly demonstrated on this e xam. A couple of nodular densities are presently seen projecting over the left upper lobe medially. S imilar mild interstitial coarsening compared to priors. There is no new or worsening infiltrate seen. Degenerative change left shoulder and spine. IMPRESSION: 1. Lines and tubes in place, as above. 2. Extrinsic structures related to #1 limit interpretation of the lungs. I suspect some if not all o f the waxing and waning nodularities over the left chest may be artifactual. Recommend removing the e xtrinsic structures as much as possible for the next follow-up exam. If things remain equivocal, jacinta dick recommend CT when appropriate for further evaluation. 3. Stable mild pulmonary vascular congestion. 4. Asymmetric elevation right hemidiaphragm again noted, with similar right basilar opacity likely o n the basis of atelectasis.
[2023-07-23 16:25] LABS: Glucose,Whole Blood 224 mg/dL (70-110)
--- NOTE | 2023-07-23 17:20 | P.PN ---
Subjective Patient is a 59-year-old male with BPH, carotid stenosis, cirrhosis, diabetes, end-stage renal disease status post renal and liver transplant no longer requiring hemodialysis, glaucoma, hypertension, and multiple other comorbid conditions who presented to the emergency department with complaints of shortness of breath. Patient had recently been at an outside hospital for abdominal and back pain they are workup revealed lesions in his liver, kidney, and lung and he was requiring Dilaudid [id number] for pain. He was discharged on a fentanyl patch with a PET scan scheduled for July with Dr. Wise. In the emergency department here he was noted to have a white blood cell count of 16, sodium 124, BUN 30, creatinine 1.76 (baseline creatinine 2), AST 241, ALT 153, alkaline phosphatase 669, and a D-dimer of 18.53. Patient was admitted with concerns for possible pulmonary embolism and he was started on Lovenox. He subsequently underwent a ventilation/perfusion scan which demonstrated low probability for pulmonary embolism. He underwent echocardiogram which demonstrated ejection fraction of 55 to 60% with mild aortic stenosis. Renal and bladder ultrasound demonstrated hepatic metastatic disease with transplanted kidneys and atrophic [place] kidneys. Oncology was consulted. They recommended continuing pain control considering additional imaging and IR consultation. Patient was noted to have change in mentation and therefore underwent a CT of the head which demonstrated no acute intracranial process. He then became hypoxic requiring high flow nasal cannula and ultimately BiPAP. Pulmonary was consulted and added bronchodilators. On the morning of 07/21 patient was undergoing a BiPAP weaning trial when he lost pulses and CPR was initiated. He had ROSC after 2 rounds of epinephrine however his mental status did not improve and he was subsequently intubated and transferred to the ICU. He required norepinephrine for less than 24 hours. Infectious disease was consulted he recommended adding cefepime while awaiting cultures to finalize. Nephrology was consulted who recommended holding CellCept and continuing tacrolimus and prednisone. Patient seen and examined at bedside. Sedated on vent. Per nursing will attempt sedation holiday today, minimal urine output overnight. Vital signs reviewed General: Nontoxic, no distress, appears at stated age Cardiovascular: S1S2 reg, no murmur Lungs: Course bilateral, no rhonchi, no rales, no accessory muscle use Abdominal: Soft, nontender to palpation, no guarding Ext: No gross muscle atrophy, no edema b/l lower extremities, no contractures Neuro: sedated on vent Psych: Sedated on vent Assessment/Plan: S/P Cardiac arrest Multiple lung and liver nodules, probable malignancy Intractable pain likely related to malignancy Acute hypoxic respiratory failure Transaminitis suspect secondary to liver lesions versus hepatitis C -Shock, probable sepsis. -ID following -Cefepime 2 g IV piggyback twice daily -CellCept on hold per nephrology for elevated levels -Hold Lipitor due to elevated liver enzymes -Hold Coreg due to hypotension -Fentanyl 75 mcg patch has been continued. Will need to monitor in case this needs to be removed to help with mentation for extubation. Will leave in place now due to patient's history of uncontrolled pain -DuoNebs every 4 hours and as needed Chronic kidney disease stage III status post renal and liver transplant Hyponatremia Metabolic acidosis -Nephrology following. Recommendations appreciated. -Continue with tacrolimus 3 mg in the morning and 2 mg at night (levels high but not timed correctly per nephrology), prednisone 2 mg daily. CellCept is on hold. -Continue to follow renal function -Sodium levels are going down with IV fluid resuscitation. Urine osmolality 438 with serum osmolality 304. No urine sodium available at this time. 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 -Consider stopping IV fluids but will defer to nephrology. Normocytic anemia -Follow CBC -No indication for transfusion at this time Diabetes mellitus type 2 with episodes of hypoglycemia -Lantus on hold -Continue with sliding scale insulin Chronic conditions BPH Carotid stenosis Hepatitis C Hypertension Dyslipidemia Osteoarthritis Vitamin D deficiency Pulmonary embolism ruled out Imaging: Chest x-ray: Left midlung nodularity Data Review: Labs reviewed from today include CBC, BMP, and ABG which are remarkable for whit e blood cell count 13.1, hemoglobin 7.9, sodium 127, creatinine 1.32. Tacrolimus levels elevated at 22.4. Procalcitonin 4.1 which may also be elevated due to possible metastatic disease. Serum osmolality 304, urinalysis molality 438. DVT prophylaxis: Lovenox Anticipated discharge date: Pending Clinical Course Anticipated discharge place: Pending Clinical Course This dictation was prepared using [email or web address] voice recognition software. Though every attempt is made to correct errors during dictation some may still exist. Objective - Vital Signs Vital signs: Vital Signs Temp 97.7 F 07/23/23 04:00 Pulse 64 07/23/23 07:00 Resp 24 07/23/23 07:00 BP 124/66 07/23/23 07:00 Pulse Ox 100 07/23/23 07:00 FiO2 50 07/23/23 04:00 Intake & Output 07/22/23 07/23/23 07/23/23 18:59 06:59 18:59 Intake Total 2384.116 1506.864 108 Output Total 455 470 25 Balance 0444.007 9543.864 83 Weight 80.739 kg 88 kg Intake: IV 3 1036 78 0.9 150 900 75 Cefepime 2 gm In Sodium 100 100 Chloride 0.9% 100 ml @ 25 mls/hr IVPB Q12HR [facility] Rx #:[id number] Dextrose 5%-0.45% NaCl 1, 750 000 ml @ 75 mls/hr IV . [id number] [facility] Rx#:[id number] pressure bag 33 36 3 propofoL 1,000 mg In 1000 Empty Bag 1 bag @ 15 MCG/ KG/MIN 7.267 mls/hr IV . [id number] [facility] Rx#:[id number] Intake, IV Titration 271.116 190.864 Amount Norepinephrine 8 mg In 13.514 Sodium Chloride 0.9% 250 ml @ 0.03 MCG/KG/MIN 4. 687 mls/hr IV .Q24H [facility] Rx#:[id number] propofoL 1,000 mg In 257.602 190.864 Empty Bag 1 bag @ 15 MCG/ KG/MIN 7.267 mls/hr IV . [id number] [facility] Rx#:[id number] Tube Feeding 50 220 30 Other 30 60 Output: Gastric Drainage 150 Urine 305 470 25 Other: Voiding Method Indwelling Catheter Indwelling Catheter ABP, PAP, CO, CI - Last Documented Arterial Blood Pressure 135/53 - Labs CBC & Chem 7: 07/23/23 04:40 07/23/23 04:40 Labs: Abnormal Lab Results - Last 24 Hours (Table) 07/21/23 07/21/23 07/22/23 Range/Units 08:38 17:40 06:27 WBC (3.8-10.6) k/uL RBC (4.30-5.90) m/uL Hgb (13.0-17.5) gm/dL Hct (39.0-53.0) % Neutrophils # (1.3-7.7) k/uL Lymphocytes # (1.0-4.8) k/uL ABG pH (7.35-7.45) ABG pCO2 (35-45) mmHg ABG pO2 (83-108) mmHg ABG HCO3 (21-25) mmol/L ABG Total CO2 (19-24) mmol/L ABG O2 Saturation (94-97) % Sodium 131 L (137-145) mmol/L Potassium 5.2 H (3.5-5.1) mmol/L Carbon Dioxide 17 L (22-30) mmol/L BUN 31 H (9-20) mg/dL Creatinine 1.46 H (0.66-1.25) mg/dL Glucose 120 H (74-99) mg/dL POC Glucose (mg/dL) (70-110) mg/dL Osmolality 304 H (275-295) mOsm/kg Calcium (8.4-10.2) mg/dL AST 138 H (17-59) U/L ALT 87 H (4-49) U/L Alkaline Phosphatase 620 H (38-126) U/L Total Protein 4.9 L (6.3-8.2) g/dL Albumin 2.3 L (3.5-5.0) g/dL Urine Protein (Negative) Amorphous Sediment (None) /hpf Urine Mucus (None) /hpf Tacrolimus 22.4 H (5.0-20.0) ng/mL 07/22/23 07/22/23 07/22/23 Range/Units 06:39 10:40 11:12 WBC (3.8-10.6) k/uL RBC (4.30-5.90) m/uL Hgb (13.0-17.5) gm/dL Hct (39.0-53.0) % Neutrophils # (1.3-7.7) k/uL Lymphocytes # (1.0-4.8) k/uL ABG pH 7.26 L (7.35-7.45) ABG pCO2 (35-45) mmHg ABG pO2 243 H (83-108) mmHg ABG HCO3 19 L (21-25) mmol/L ABG Total CO2 (19-24) mmol/L ABG O2 Saturation 99.5 H (94-97) % Sodium (137-145) mmol/L Potassium (3.5-5.1) mmol/L Carbon Dioxide (22-30) mmol/L BUN (9-20) mg/dL Creatinine (0.66-1.25) mg/dL Glucose (74-99) mg/dL POC Glucose (mg/dL) 126 H (70-110) mg/dL Osmolality (275-295) mOsm/kg Calcium (8.4-10.2) mg/dL AST (17-59) U/L ALT (4-49) U/L Alkaline Phosphatase (38-126) U/L Total Protein (6.3-8.2) g/dL Albumin (3.5-5.0) g/dL Urine Protein 1+ H (Negative) Amorphous Sediment Rare H (None) /hpf Urine Mucus Rare H (None) /hpf Tacrolimus (5.0-20.0) ng/mL 07/22/23 07/22/23 07/22/23 Range/Units 11:58 14:15 16:06 WBC (3.8-10.6) k/uL RBC (4.30-5.90) m/uL Hgb (13.0-17.5) gm/dL Hct (39.0-53.0) % Neutrophils # (1.3-7.7) k/uL Lymphocytes # (1.0-4.8) k/uL ABG pH (7.35-7.45) ABG pCO2 (35-45) mmHg ABG pO2 (83-108) mmHg ABG HCO3 (21-25) mmol/L ABG Total CO2 (19-24) mmol/L ABG O2 Saturation (94-97) % Sodium (137-145) mmol/L Potassium (3.5-5.1) mmol/L Carbon Dioxide (22-30) mmol/L BUN (9-20) mg/dL Creatinine (0.66-1.25) mg/dL Glucose (74-99) mg/dL POC Glucose (mg/dL) 128 H 148 H 187 H (70-110) mg/dL Osmolality (275-295) mOsm/kg Calcium (8.4-10.2) mg/dL AST (17-59) U/L ALT (4-49) U/L Alkaline Phosphatase (38-126) U/L Total Protein (6.3-8.2) g/dL Albumin (3.5-5.0) g/dL Urine Protein (Negative) Amorphous Sediment (None) /hpf Urine Mucus (None) /hpf Tacrolimus (5.0-20.0) ng/mL 07/22/23 07/22/23 07/22/23 Range/Units 17:11 20:57 23:43 WBC (3.8-10.6) k/uL RBC (4.30-5.90) m/uL Hgb (13.0-17.5) gm/dL Hct (39.0-53.0) % Neutrophils # (1.3-7.7) k/uL Lymphocytes # (1.0-4.8) k/uL ABG pH (7.35-7.45) ABG pCO2 (35-45) mmHg ABG pO2 (83-108) mmHg ABG HCO3 (21-25) mmol/L ABG Total CO2 (19-24) mmol/L ABG O2 Saturation (94-97) % Sodium (137-145) mmol/L Potassium (3.5-5.1) mmol/L Carbon Dioxide (22-30) mmol/L BUN (9-20) mg/dL Creatinine (0.66-1.25) mg/dL Glucose (74-99) mg/dL POC Glucose (mg/dL) 189 H 173 H 173 H (70-110) mg/dL Osmolality (275-295) mOsm/kg Calcium (8.4-10.2) mg/dL AST (17-59) U/L ALT (4-49) U/L Alkaline Phosphatase (38-126) U/L Total Protein (6.3-8.2) g/dL Albumin (3.5-5.0) g/dL Urine Protein (Negative) Amorphous Sediment (None) /hpf Urine Mucus (None) /hpf Tacrolimus (5.0-20.0) ng/mL 07/23/23 07/23/23 07/23/23 Range/Units 04:13 04:40 04:40 WBC 13.1 H (3.8-10.6) k/uL RBC 2.69 L (4.30-5.90) m/uL Hgb 7.9 L (13.0-17.5) gm/dL Hct 25.4 L (39.0-53.0) % Neutrophils # 11.7 H (1.3-7.7) k/uL Lymphocytes # 0.7 L (1.0-4.8) k/uL ABG pH (7.35-7.45) ABG pCO2 (35-45) mmHg ABG pO2 (83-108) mmHg ABG HCO3 (21-25) mmol/L ABG Total CO2 (19-24) mmol/L ABG O2 Saturation (94-97) % Sodium 127 L (137-145) mmol/L Potassium (3.5-5.1) mmol/L Carbon Dioxide 15 L (22-30) mmol/L BUN 32 H (9-20) mg/dL Creatinine 1.32 H (0.66-1.25) mg/dL Glucose 179 H (74-99) mg/dL POC Glucose (mg/dL) 190 H (70-110) mg/dL Osmolality (275-295) mOsm/kg Calcium 8.0 L (8.4-10.2) mg/dL AST (17-59) U/L ALT (4-49) U/L Alkaline Phosphatase (38-126) U/L Total Protein (6.3-8.2) g/dL Albumin (3.5-5.0) g/dL Urine Protein (Negative) Amorphous Sediment (None) /hpf Urine Mucus (None) /hpf Tacrolimus (5.0-20.0) ng/mL 07/23/23 07/23/23 Range/Units 05:28 07:34 WBC (3.8-10.6) k/uL RBC (4.30-5.90) m/uL Hgb (13.0-17.5) gm/dL Hct (39.0-53.0) % Neutrophils # (1.3-7.7) k/uL Lymphocytes # (1.0-4.8) k/uL ABG pH 7.31 L (7.35-7.45) ABG pCO2 33 L (35-45) mmHg ABG pO2 176 H (83-108) mmHg ABG HCO3 17 L (21-25) mmol/L ABG Total CO2 18 L (19-24) mmol/L ABG O2 Saturation 99.0 H (94-97) % Sodium (137-145) mmol/L Potassium (3.5-5.1) mmol/L Carbon Dioxide (22-30) mmol/L BUN (9-20) mg/dL Creatinine (0.66-1.25) mg/dL Glucose (74-99) mg/dL POC Glucose (mg/dL) 185 H (70-110) mg/dL Osmolality (275-295) mOsm/kg Calcium (8.4-10.2) mg/dL AST (17-59) U/L ALT (4-49) U/L Alkaline Phosphatase (38-126) U/L Total Protein (6.3-8.2) g/dL Albumin (3.5-5.0) g/dL Urine Protein (Negative) Amorphous Sediment (None) /hpf Urine Mucus (None) /hpf Tacrolimus (5.0-20.0) ng/mL
[2023-07-23 20:09] LABS: Glucose,Whole Blood 276 mg/dL (70-110)
[2023-07-24 00:56] LABS: Glucose,Whole Blood 296 mg/dL (70-110)
[2023-07-24 04:23] LABS: Glucose,Whole Blood 306 mg/dL (70-110)
[2023-07-24 04:59] LABS: ABG Base Excess -11.5 mmol/L; ABG HCO3 15 mmol/L (21-25); ABG Oxygen Saturation 98.9 % (94-97); ABG PCO2 30 mmHg (35-45); ABG PO2 146 mmHg (83-108); ABG TCO2 16 mmol/L (19-24)
[2023-07-24 05:12] LABS: Basophils % (A) 0 %; Eosinophils # (A) 0.1 k/uL (0-0.7); Eosinophils % (A) 0 %; HGB 7.7 gm/dL (13.0-17.5); Hypochromasia Moderate; Lymphocytes # (A) 0.6 k/uL (1.0-4.8); Lymphocytes % (A) 4 %; MCH 29.2 pg (25.0-35.0); MCHC 30.7 g/dL (31.0-37.0); Mean Platelet Volume 8.2; Monocytes # (A) 0.6 k/uL (0-1.0); Monocytes % (A) 4 %; Neutrophils # (A) 13.8 k/uL (1.3-7.7); Neutrophils % (A) 91 %; Platelet Count 165 k/uL (150-450); RBC 2.63 m/uL (4.30-5.90); RDW 15.2 % (11.5-15.5); WBC 15.2 k/uL (3.8-10.6)
[2023-07-24 05:16] LABS: INR 1.2 (<1.2); Prothrombin Time 12.6 sec (10.0-12.5)
[2023-07-24 05:18] LABS: Allen Test Performed? no
[2023-07-24 05:21] LABS: ALT 52 U/L (4-49); AST 58 U/L (17-59); African American GFR (CKD) 41 (>60 ml/min/1.73 sqM); Alkaline Phosphatase 596 U/L (38-126); Anion Gap 9 mmol/L; Blood Urea Nitrogen 42 mg/dL (9-20); Calcium 7.7 mg/dL (8.4-10.2); Carbon Dioxide 12 mmol/L (22-30); Chloride 105 mmol/L (98-107); Glucose 274 mg/dL (74-99); Non-African American GFR(CKD) 36 (>60 ml/min/1.73 sqM); Potassium 5.2 mmol/L (3.5-5.1); Sodium 126 mmol/L (137-145); Total Bilirubin 0.9 mg/dL (0.2-1.3); Total Protein 4.5 g/dL (6.3-8.2)
[2023-07-24 07:09] LABS: Glucose,Whole Blood 296 mg/dL (70-110)
--- NOTE | 2023-07-24 08:04 | P.PN ---
Subjective Progress Note Date: 07/23/23 Principal diagnosis: Reason for follow-up is possible pneumonia Patient is a 72-year-old male with a past medical history negative for hypertension hyperlipidemia reflux, end-stage renal disease s/p renal and liver transplant in 2016 recent vascular bypassed presented to hospital due to abdominal and worsening back pain did have a cardiac arrest for the patient has been intubated and admitted to the ICU. On today's visit that is 07/23/2023, patient has been afebrile, patient is intubated on the vent FiO2 40% no significant purulent secretions through the ET patient is hemodynamically stable not requiring pressor support and no diarrhea has been reported by the nursing staff. Patient white count is down to 13.1 creatinine is 1.32 cultures currently pending Objective - Vital Signs Vital signs: Vital Signs Temp 97.6 F 07/23/23 08:00 Pulse 68 07/23/23 12:28 Resp 20 07/23/23 12:00 BP 156/73 07/23/23 12:00 Pulse Ox 100 07/23/23 12:00 FiO2 50 07/23/23 12:30 Intake & Output 07/22/23 07/23/23 07/23/23 18:59 06:59 18:59 Intake Total 2384.116 1506.864 774.496 Output Total 455 470 65 Balance 8473.767 0016.864 709.496 Weight 80.739 kg 88 kg Intake: IV 2033 1036 435 0.9 150 900 320 Cefepime 2 gm In Sodium 100 100 100 Chloride 0.9% 100 ml @ 25 mls/hr IVPB Q12HR [facility] Rx #:[id number] Dextrose 5%-0.45% NaCl 1, 750 000 ml @ 75 mls/hr IV . [id number] [facility] Rx#:[id number] pressure bag 33 36 15 propofoL 1,000 mg In 1000 Empty Bag 1 bag @ 15 MCG/ KG/MIN 7.267 mls/hr IV . [id number] [facility] Rx#:[id number] Intake, IV Titration 271.116 190.864 159.496 Amount Norepinephrine 8 mg In 13.514 Sodium Chloride 0.9% 250 ml @ 0.03 MCG/KG/MIN 4. 687 mls/hr IV .Q24H [facility] Rx#:[id number] propofoL 1,000 mg In 257.602 190.864 159.496 Empty Bag 1 bag @ 15 MCG/ KG/MIN 7.267 mls/hr IV . [id number] [facility] Rx#:[id number] Tube Feeding 50 220 150 Other 30 60 30 Output: Gastric Drainage 150 Urine 305 470 65 Other: Voiding Method Indwelling Catheter Indwelling Catheter Indwelling Catheter ABP, PAP, CO, CI - Last Documented Arterial Blood Pressure 139/51 - Exam GENERAL DESCRIPTION: An elderly male intubated on the vent RESPIRATORY SYSTEM: Unlabored breathing , decreased breath sounds at bases HEART: S1 S2 regular rate and rhythm , ABDOMEN: Soft , no tenderness EXTREMITIES: No edema feet - Labs CBC & Chem 7: 07/24/23 04:38 07/24/23 04:38 Labs: Abnormal Lab Results - Last 24 Hours (Table) 07/22/23 07/22/23 07/22/23 Range/Units 16:06 17:11 20:57 WBC (3.8-10.6) k/uL RBC (4.30-5.90) m/uL Hgb (13.0-17.5) gm/dL Hct (39.0-53.0) % Neutrophils # (1.3-7.7) k/uL Lymphocytes # (1.0-4.8) k/uL ABG pH (7.35-7.45) ABG pCO2 (35-45) mmHg ABG pO2 (83-108) mmHg ABG HCO3 (21-25) mmol/L ABG Total CO2 (19-24) mmol/L ABG O2 Saturation (94-97) % Sodium (137-145) mmol/L Carbon Dioxide (22-30) mmol/L BUN (9-20) mg/dL Creatinine (0.66-1.25) mg/dL Glucose (74-99) mg/dL POC Glucose (mg/dL) 187 H 189 H 173 H (70-110) mg/dL Calcium (8.4-10.2) mg/dL 07/22/23 07/23/23 07/23/23 Range/Units 23:43 04:13 04:40 WBC 13.1 H (3.8-10.6) k/uL RBC 2.69 L (4.30-5.90) m/uL Hgb 7.9 L (13.0-17.5) gm/dL Hct 25.4 L (39.0-53.0) % Neutrophils # 11.7 H (1.3-7.7) k/uL Lymphocytes # 0.7 L (1.0-4.8) k/uL ABG pH (7.35-7.45) ABG pCO2 (35-45) mmHg ABG pO2 (83-108) mmHg ABG HCO3 (21-25) mmol/L ABG Total CO2 (19-24) mmol/L ABG O2 Saturation (94-97) % Sodium (137-145) mmol/L Carbon Dioxide (22-30) mmol/L BUN (9-20) mg/dL Creatinine (0.66-1.25) mg/dL Glucose (74-99) mg/dL POC Glucose (mg/dL) 173 H 190 H (70-110) mg/dL Calcium (8.4-10.2) mg/dL 07/23/23 07/23/23 07/23/23 Range/Units 04:40 05:28 07:34 WBC (3.8-10.6) k/uL RBC (4.30-5.90) m/uL Hgb (13.0-17.5) gm/dL Hct (39.0-53.0) % Neutrophils # (1.3-7.7) k/uL Lymphocytes # (1.0-4.8) k/uL ABG pH 7.31 L (7.35-7.45) ABG pCO2 33 L (35-45) mmHg ABG pO2 176 H (83-108) mmHg ABG HCO3 17 L (21-25) mmol/L ABG Total CO2 18 L (19-24) mmol/L ABG O2 Saturation 99.0 H (94-97) % Sodium 127 L (137-145) mmol/L Carbon Dioxide 15 L (22-30) mmol/L BUN 32 H (9-20) mg/dL Creatinine 1.32 H (0.66-1.25) mg/dL Glucose 179 H (74-99) mg/dL POC Glucose (mg/dL) 185 H (70-110) mg/dL Calcium 8.0 L (8.4-10.2) mg/dL 07/23/23 Range/Units 11:24 WBC (3.8-10.6) k/uL RBC (4.30-5.90) m/uL Hgb (13.0-17.5) gm/dL Hct (39.0-53.0) % Neutrophils # (1.3-7.7) k/uL Lymphocytes # (1.0-4.8) k/uL ABG pH (7.35-7.45) ABG pCO2 (35-45) mmHg ABG pO2 (83-108) mmHg ABG HCO3 (21-25) mmol/L ABG Total CO2 (19-24) mmol/L ABG O2 Saturation (94-97) % Sodium (137-145) mmol/L Carbon Dioxide (22-30) mmol/L BUN (9-20) mg/dL Creatinine (0.66-1.25) mg/dL Glucose (74-99) mg/dL POC Glucose (mg/dL) 201 H (70-110) mg/dL Calcium (8.4-10.2) mg/dL Assessment and Plan (1) Pneumonia Current Visit: Yes Status: Acute Code(s): J18.9 - PNEUMONIA, UNSPECIFIED ORGANISM SNOMED Code(s): 434396563 (2) Leukocytosis Current Visit: Yes Status: Acute Code(s): D72.829 - ELEVATED WHITE BLOOD CELL COUNT, UNSPECIFIED SNOMED Code(s): 411739702 (3) Penicillin allergy Current Visit: Yes Status: Acute Code(s): Z88.0 - ALLERGY STATUS TO PENICILLIN SNOMED Code(s): 49056612 Plan: 1patient with acute respiratory failure which is likely multifactorial in this patient who did have a cardiac arrest this morning patient did have elevated procalcitonin and a possible component of pneumonia not entirely excluded possible gram-negative 2-blood and sputum culture currently pending 3-patient to continue with the cefepime while waiting for the culture to finalize Family at the bedside questions were answered Dictation was produced using [email or web address] dictation software. please excuse any grammatical, word or spelling errors. Time with Patient: Less than 30
[2023-07-24] MEDS ORDERED: DEXTROSE 50% SYRINGE 50 ML IVP PRN (08:28)
--- NOTE | 2023-07-24 09:05 | XR ---
EXAMINATION TYPE: XR chest 1V portable DATE OF EXAM: 07/24/2023 5:14 AM CLINICAL INDICATION:Male, 72 years old with history of Tube placement; [facility] COMPARISON: Chest radiographs from TECHNIQUE: XR chest 1V portable Frontal view of the chest. FINDINGS: Lungs/Pleura: There is no evidence of pleural effusion, focal consolidation, or pneumothorax. Pulmonary vascularity: Unremarkable. Heart/mediastinum: Cardiomediastinal silhouette is unremarkable. Musculoskeletal: Degenerative changes of the shoulder joints. Other findings: None Lines/Tubes: Endotracheal tube with distal tip 3.4 cm above the divine. Nasogastric tube with its distal tip and side-port projecting under the diaphragm. Left central venous catheter with distal tip at the cavoatrial junction. [id number] projecting over the left hemithorax with distal tip at the cavoatrial junction. IMPRESSION: Stable support lines and tubes.
[2023-07-24] MEDS: INSULIN ASPART (NovoLOG) 100 UNIT/ML VIAL SQ SCH ×6 (10:28→19:47)
[2023-07-24 10:29] LABS: Glucose,Whole Blood 259 mg/dL (70-110)
[2023-07-24] MEDS: INSULIN DETEMIR (LEVEMIR) 100 UNIT/ML SYR SQ SCH (10:29)
[2023-07-24] MEDS: DEXTROSE 5% IN WATER 1,000 ML with SODIUM BICARB (1 MEQ/ML) 150 ML IV SCH (11:37)
[2023-07-24 12:19] LABS: Glucose,Whole Blood 264 mg/dL (70-110)
--- NOTE | 2023-07-24 13:59 | P.PN ---
Subjective Progress Note Date: 07/24/23 72-year-old black male, who [facility], is seen in the emergency department, on July 18, for shortness of breath. The patient apparently has been having shortness of breath, since being discharged from [facility]. Recently, the patient was started on a fentanyl patch for back pain, but denies all other medications. He apparently was admitted at the other hospital, for total of 4 days according to his , and was found to have some lesions on his liver and lung. The patient is apparently awaiting an outpatient PET scan. He did see one of the cancer doctors at the other facility. Currently, the patient is seen in ER room 28. The patient is currently on BiPAP, with settings of 12/6 and 28%. According to his he has a history of liver and kidney transplantation. He is getting saline at 75 cc an hour. He apparently had a chest x-ray that was interpreted as normal, and a VQ scan that was interpreted as being very low probability for pulmonary embolism. He does not use oxygen at home. He quit smoking 43 years ago. He had a blood gas showing a pO2 of 124, pCO2 of 35, and a pH of 7.30. This is consistent with metabolic acidosis. His other medical history includes gastroesophageal reflux disease, hypertension, hyperlipidemia, liver kidney transplant at [facility] in 2016, diabetes, and gout. The patient is a former smoker, having quit some 43 years ago as mentioned above. Current labs include a white count of 16.2, hemoglobin 8.4, hematocrit 27.6, and a platelet count of 268,000. Sodium 126, potassium 5.2, chlorides 102, CO2 18, BUN 35, and creatinine 1.63. Calcium is 8.5. Glucose is 161. The patient has a nonanion gap metabolic acidosis, likely from his renal insufficiency/failure. The patient has a couple different chest x- rays, which did not show acute cardiopulmonary disease. Progress note dated July 22, 2023. The patient was seen yesterday in consultation, when he was in the emergency department. The patient was admitted to the floor. Sometime early this morning, the patient developed bradycardia, and pulseless electrical activity. At that time, the patient's blood glucose was only 25. The patient was intubated, for respiratory failure, transferred to the intensive care unit. He is currently in the ICU, on the ventilator. Settings include volume assist- control, rate 20, tidal volume 450, FiO2 50%, PEEP of 5. Blood gases show pO2 of 243, pCO2 42, and a pH of 7.25. The patient is getting dextrose with half- normal saline at 75 cc an hour, propofol at 50 mcg/kg/min. He remains on Levaquin. His procalcitonin level was elevated at 4.10. Current labs include a white count 19.4, hemoglobin 8.2, hematocrit 27.3, and a platelet count of 2 62,000. Sodium 131, potassium 5.2, chlorides 104, CO2 17, anion gap 10, BUN 31, and creatinine 1.46. Glucose is 120. AST is 138. ALT is 87. Alkaline phosphatase is 620. Procalcitonin level was 4.10. He tested negative for influenza, RSV, and coronavirus. Chest x-ray shows the tip of the central venous catheter, at the junction of the superior vena cava and right atrium. Chest x-ray also suggest some pulmonary vascular congestion. Progress note dated July 23, 2023. 72-year-old black male, seen in follow-up, room 259. The patient remains on the mechanical ventilator. Current vent settings include volume assist-control, rate 20, tidal volume 450, FiO2 50%. PEEP of 5. Blood gases show pO2 176, pCO2 33, pH is 7.31. The patient is getting saline at 75 cc an hour, propofol at 40 mcg/kg/min. Currently, norepinephrine is on hold. He is getting vital AF at 30, with a goal of 42. He continues on cefepime. We did attempt a daily interruption of sedation, but he did poorly and, we could not do a spontaneous breathing trial. He was placed back on the ventilator. Current labs include a white count of 13.1, hemoglobin 7.9, hematocrit 25.4, and a normal platelet count. Sodium 127, potassium 5, chlorides 106, CO2 15, BUN 32, creatinine 1.32. Glucose is 185. Calcium is 8. Chest x-ray shows a properly positioned endotracheal tube. In addition, there may be an infiltrate in the right lung, with volume loss in the right lung, and a small right-sided pleural effusion. On today's evaluation of 07/24/2023, the patient is being seen for a follow-up. Patient cardiac arrest and the patient remains intubated on mechanical ventilator. Noted the patient was intubated on 07/22/2023 following cardiac arrest that followed an episode of bradycardia followed by pulseless electrical activity. During that time, the patient was also hypoglycemic. Noted the patient is a very complicated history of liver and kidney transplant and the patient has undergone his transportation back in 2016 at [facility]. The patient has been maintained on immunosuppressive agents with a combination of CellCept and Prograf and low-dose prednisone on an outpatient basis. Note that the CellCept is currently on hold and the patient remains on a combination of Prograf and low-dose prednisone. On a separate note, a CAT scan of the chest that was done also on this patient at [facility] showed extensive bilateral pulmonary nodules which raise the possibility of underlying metastatic disease/infection/post transplant lymphoproliferative disorder. If final diagnosis not been made at this point in time. In fact, the patient is currently on a mechanical ventilator, and is afebrile. He is on assist-control mode of mechanical ventilation at rate of 20, tidal volume of 450, FiO2 is at 40% with a PEEP of 5. The blood gas showing a pH of 7.3 with a pCO2 of 30 and pO2 of 146. Peak airway pressure is around 15. IV fluids are currently at KVO. The patient is currently on vital AF at rate of 42 to cc an hour for enteral feeding and nutritional support. He is currently on no pressors. The WBC count of 15.2 with a hemoglobin of 7.7 and a platelet count of 165. The serum bicarb is at 12 with a sodium level of 126 and a potassium level of 5.2. BUN is at 42 with a creatinine of 1.8. LFTs remain abnormal with an AST of 58, ALT of 52 and an alkaline phosphatase of 596. Serum protein is at 2.0. The blood cultures are still pending, sputum culture also pending. The patient is currently hemodynamically stable on no pressors. He is known to have hypertension hyperlipidemia and diabetes mellitus type 2 and history of gout. Has echocardiogram that was done on 07/20/2023 showed preserved LV function without any significant valvular abnormalities and mild pulmonary hypertension was also seen. CAT scan of the brain done postarrest showed no acute intracranial process. Ultrasound of the abdomen and the bladder showed heterogeneous liver lesions the significance of which was not known. Possibility of hepatic metastasis cannot be completely ruled out. Postoperative dilatation of the common bile duct was seen and the transplanted kidney was noted. The patient's original kidneys are quite atrophic at this point in time. His procalcitonin level was 4.0 at the time of admission. Objective - Vital Signs Vital signs: Vital Signs Temp 97.5 F L 07/24/23 04:00 Pulse 77 07/24/23 07:00 Resp 0 L 07/24/23 06:00 BP 105/61 07/24/23 07:00 Pulse Ox 99 07/24/23 07:00 FiO2 40 07/24/23 04:00 Intake & Output 07/23/23 07/24/23 07/24/23 18:59 06:59 18:59 Intake Total 1024.701 1598.981 33 Output Total 225 75 5 Balance 4474.603 3298.981 28 Weight 88.9 kg Intake: IV 666 496 33 0.9 530 360 30 Cefepime 2 gm In Sodium 100 100 Chloride 0.9% 100 ml @ 25 mls/hr IVPB Q12HR MARCEL Rx #:[id number] pressure bag 36 36 3 Intake, IV Titration 253.151 250.981 Amount propofoL 1,000 mg In 253.151 250.981 Empty Bag 1 bag @ 15 MCG/ KG/MIN 7.267 mls/hr IV . [id number] MARCEL Rx#:[id number] Tube Feeding 408 462 Other 90 90 Output: Urine 225 75 5 Other: Voiding Method Indwelling Catheter Indwelling Catheter # Bowel Movements 1 ABP, PAP, CO, CI - Last Documented Arterial Blood Pressure 126/52 - Exam No acute distress, intubated, and sedated. The patient is calm and comfortable and the patient is currently sedated on propofol. The orotracheal and orogastric tube are both in place. Head exam was generally normal. There was no scleral icterus or corneal arcus. Mucous membranes were moist. HEENT examination is grossly unremarkable. Neck supple. Full range of motion. No adenopathy thyromegaly or neck vein distention. Cardiovascular examination reveals regular rhythm rate. S1-S2 normal. No S3 or S4. No discernible murmur noted. Heart sounds are distant. Lungs reveal clear breath sounds. Breath sounds are equal bilaterally. No adventitious lung sounds including wheezes rhonchi or crackles. Abdomen soft bowel sounds are heard. No masses or tenderness. Extremities are intact. No cyanosis clubbing or edema. Skin is without rash or lesion. Neurologic examination cannot be assessed at this time. Patient is sedated and is calm and comfortable, withdraws to painful stimulation. - Labs CBC & Chem 7: 07/24/23 04:38 07/24/23 04:38 Labs: Abnormal Lab Results - Last 24 Hours (Table) 07/23/23 07/23/23 07/23/23 Range/Units 11:24 16:23 20:08 WBC (3.8-10.6) k/uL RBC (4.30-5.90) m/uL Hgb (13.0-17.5) gm/dL Hct (39.0-53.0) % MCHC (31.0-37.0) g/dL Neutrophils # (1.3-7.7) k/uL Lymphocytes # (1.0-4.8) k/uL PT (10.0-12.5) sec INR (<1.2) ABG pH (7.35-7.45) ABG pCO2 (35-45) mmHg ABG pO2 (83-108) mmHg ABG HCO3 (21-25) mmol/L ABG Total CO2 (19-24) mmol/L ABG O2 Saturation (94-97) % Sodium (137-145) mmol/L Potassium (3.5-5.1) mmol/L Carbon Dioxide (22-30) mmol/L BUN (9-20) mg/dL Creatinine (0.66-1.25) mg/dL Glucose (74-99) mg/dL POC Glucose (mg/dL) 201 H 224 H 276 H (70-110) mg/dL Calcium (8.4-10.2) mg/dL ALT (4-49) U/L Alkaline Phosphatase (38-126) U/L Total Protein (6.3-8.2) g/dL Albumin (3.5-5.0) g/dL 07/24/23 07/24/23 07/24/23 Range/Units 00:55 04:22 04:38 WBC 15.2 H (3.8-10.6) k/uL RBC 2.63 L (4.30-5.90) m/uL Hgb 7.7 L (13.0-17.5) gm/dL Hct 25.0 L (39.0-53.0) % MCHC 30.7 L (31.0-37.0) g/dL Neutrophils # 13.8 H (1.3-7.7) k/uL Lymphocytes # 0.6 L (1.0-4.8) k/uL PT (10.0-12.5) sec INR (<1.2) ABG pH (7.35-7.45) ABG pCO2 (35-45) mmHg ABG pO2 (83-108) mmHg ABG HCO3 (21-25) mmol/L ABG Total CO2 (19-24) mmol/L ABG O2 Saturation (94-97) % Sodium (137-145) mmol/L Potassium (3.5-5.1) mmol/L Carbon Dioxide (22-30) mmol/L BUN (9-20) mg/dL Creatinine (0.66-1.25) mg/dL Glucose (74-99) mg/dL POC Glucose (mg/dL) 296 H 306 H (70-110) mg/dL Calcium (8.4-10.2) mg/dL ALT (4-49) U/L Alkaline Phosphatase (38-126) U/L Total Protein (6.3-8.2) g/dL Albumin (3.5-5.0) g/dL 07/24/23 07/24/23 07/24/23 Range/Units 04:38 04:38 04:57 WBC (3.8-10.6) k/uL RBC (4.30-5.90) m/uL Hgb (13.0-17.5) gm/dL Hct (39.0-53.0) % MCHC (31.0-37.0) g/dL Neutrophils # (1.3-7.7) k/uL Lymphocytes # (1.0-4.8) k/uL PT 12.6 H (10.0-12.5) sec INR 1.2 H (<1.2) ABG pH 7.30 L (7.35-7.45) ABG pCO2 30 L (35-45) mmHg ABG pO2 146 H (83-108) mmHg ABG HCO3 15 L (21-25) mmol/L ABG Total CO2 16 L (19-24) mmol/L ABG O2 Saturation 98.9 H (94-97) % Sodium 126 L (137-145) mmol/L Potassium 5.2 H (3.5-5.1) mmol/L Carbon Dioxide 12 L (22-30) mmol/L BUN 42 H (9-20) mg/dL Creatinine 1.85 H (0.66-1.25) mg/dL Glucose 274 H (74-99) mg/dL POC Glucose (mg/dL) (70-110) mg/dL Calcium 7.7 L (8.4-10.2) mg/dL ALT 52 H (4-49) U/L Alkaline Phosphatase 596 H (38-126) U/L Total Protein 4.5 L (6.3-8.2) g/dL Albumin 2.0 L (3.5-5.0) g/dL 07/24/23 Range/Units 07:07 WBC (3.8-10.6) k/uL RBC (4.30-5.90) m/uL Hgb (13.0-17.5) gm/dL Hct (39.0-53.0) % MCHC (31.0-37.0) g/dL Neutrophils # (1.3-7.7) k/uL Lymphocytes # (1.0-4.8) k/uL PT (10.0-12.5) sec INR (<1.2) ABG pH (7.35-7.45) ABG pCO2 (35-45) mmHg ABG pO2 (83-108) mmHg ABG HCO3 (21-25) mmol/L ABG Total CO2 (19-24) mmol/L ABG O2 Saturation (94-97) % Sodium (137-145) mmol/L Potassium (3.5-5.1) mmol/L Carbon Dioxide (22-30) mmol/L BUN (9-20) mg/dL Creatinine (0.66-1.25) mg/dL Glucose (74-99) mg/dL POC Glucose (mg/dL) 296 H (70-110) mg/dL Calcium (8.4-10.2) mg/dL ALT (4-49) U/L Alkaline Phosphatase (38-126) U/L Total Protein (6.3-8.2) g/dL Albumin (3.5-5.0) g/dL Microbiology - Last 24 Hours (Table) 07/22/23 10:45 Blood Culture - Preliminary Blood 07/22/23 08:15 Blood Culture - Preliminary Blood 07/22/23 11:55 Gram Stain - Preliminary Sputum Assessment and Plan Plan: Acute cardiac arrest with a normal echocardiogram and no ongoing cardiac arrhythmias. The patient had a episode of bradycardia followed by PEA. During the same time, the patient was hypoglycemic. This could have been a acute hypoglycemic event. Currently debated on mechanical ventilator and the patient is currently hemodynamically stable. Acute hypoxic respiratory failure postcardiac arrest and the patient is requiring intubation mechanical ventilation Shortness of breath under investigation. CAT scan of the chest that was done in outside hospital showed multiple bilateral pulmonary nodules/micronodules and obviously differential diagnosis regarding this abnormality is quite extensive specially with his underlying immunosuppressive state. Possibilities include malignancy including possibility of posttransplant or immunosuppression related lymphomas. Other possibilities include infections including possibility of opportunistic infections. Currently afebrile. Hemodynamically stable. History of kidney/liver transplantation, September 2015, at [facility]. Patient has been maintained on a combination of Prograf, CellCept and prednisone Chronic kidney disease, posttransplantation Chronic elevation of the alkaline phosphatase and a component of transaminitis which is essentially improving at this point in time. Recent evaluation at [facility], which revealed nodules on his liver and lung, rule out PTLD. History of hypertension. History of hyperlipidemia. History of gastroesophageal reflux disease. History of diabetes. History of gout. Previous history of tobacco use. Enteral feeding for nutritional support Plan: No plans for weaning at this point in time. Keep the patient sedated. Would like to obtain a follow-up CAT scan of the chest without contrast and compared to the earlier CAT scan that was done [facility] and based on that we will decide if the patient would benefit from bronchoscopy and bronchoalveolar lavage. Check Legionella urine antigen Check cryptococcal serum antigen Check fungal antibodies including antibodies to with Aspergillus, histoplasma, coccidiomycosis and blastomycosis. Will check, interferon release assay, baseline PPD status is not known Check galactomannan levels Check 2 3 B glycan level Change the patient to a bicarb infusion to be done at 100 and cc an hour Continue Prograf Monitor renal function Will switch this patient to stress dose hydrocortisone 100 mg every 8 hours and start the prednisone for now Continue enteral feeding for nutritional support Condition is critical. Will make final recommendations based on the results of the follow-up CAT scan of the chest. Condition is critical and will coordinate care with infectious disease and nephr ology. Continue Lovenox for DVT prophylaxis Continue IV cefepime Condition is critical we will continue to follow make further recommendations based on the progress. This evaluation was done more than 40 minutes. Time with Patient: Greater than 30
--- NOTE | 2023-07-24 16:56 | P.PN ---
Subjective Progress Note Date: 07/24/23 (Delayed charting seen at 0945) Patient is a 59-year-old male with BPH, carotid stenosis, cirrhosis, diabetes, end-stage renal disease status post renal and liver transplant no longer requiring hemodialysis, glaucoma, hypertension, and multiple other comorbid conditions who presented to the emergency department with complaints of shortness of breath. Patient had recently been at an outside hospital for abdominal and back pain they are workup revealed lesions in his liver, kidney, and lung and he was requiring Dilaudid [id number] for pain. He was discharged on a fentanyl patch with a PET scan scheduled for July with Dr. Wise. In the emergency department here he was noted to have a white blood cell count of 16, sodium 124, BUN 30, creatinine 1.76 (baseline creatinine 2), AST 241, ALT 153, alkaline phosphatase 669, and a D-dimer of 18.53. Patient was admitted with concerns for possible pulmonary embolism and he was started on Lovenox. He subsequently underwent a ventilation/perfusion scan which demonstrated low probability for pulmonary embolism. He underwent echocardio gram which demonstrated ejection fraction of 55 to 60% with mild aortic stenosis. Renal and bladder ultrasound demonstrated hepatic metastatic disease with transplanted kidneys and atrophic [place] kidneys. Oncology was consulted. They recommended continuing pain control considering additional imaging and IR consultation. Patient was noted to have change in mentation and therefore underwent a CT of the head which demonstrated no acute intracranial process. He then became hypoxic requiring high flow nasal cannula and ultimately BiPAP. Pulmonary was consulted and added bronchodilators. On the morning of 07/21 patient was undergoing a BiPAP weaning trial when he lost pulses and CPR was ini tiated. He had ROSC after 2 rounds of epinephrine however his mental status did not improve and he was subsequently intubated and transferred to the ICU. He required norepinephrine for less than 24 hours. Infectious disease was consulted he recommended adding cefepime while awaiting cultures to finalize. Nephrology was consulted who recommended holding CellCept and continuing tacrolimus and prednisone. Patient seen and examined at bedside. He remains sedated on vent. Per nursing no acute events overnight. Vital signs reviewed General: Nontoxic, no distress, appears at stated age Cardiovascular: S1S2 reg, no murmur, 1+ edema b/l LE Lungs: Course bilateral, no rhonchi, no rales, no accessory muscle use Abdominal: Soft, nontender to palpation, no guarding Ext: No gross muscle atrophy, no edema b/l lower extremities, no contractures Neuro: sedated on vent Psych: Sedated on vent Assessment/Plan: S/P Cardiac arrest Multiple lung and liver nodules, probable malignancy Intractable pain likely related to malignancy Acute hypoxic respiratory failure Transaminitis suspect secondary to liver lesions versus hepatitis C -Shock, probable sepsis. -ID following, await further recs - D/W onc and liver biopsy once patient off vent -Cefepime 2 g IV piggyback twice daily -CellCept on hold per nephrology -Hold Lipitor due to elevated liver enzymes -Hold Coreg due to hypotension -Fentanyl 75 mcg patch has been continued. Will need to monitor in case this needs to be removed to help with mentation for extubation. Will leave in place now due to patient's history of uncontrolled pain -DuoNebs every 4 hours and as needed Chronic kidney disease stage III status post renal and liver transplant Hyponatremia, possibel SAIDH Metabolic acidosis -Nephrology following. Await further recs -D5W with 3 A of bicarb at 100 cc/h ordered for acidosis by critical care. m onitor sodium at at 1700. Will stop Oral sodium bicarb. - Repeat sodium level at 1700 -Continue with tacrolimus 3 mg in the morning and 2 mg at night (levels high but not timed correctly per nephrology), prednisone 2 mg daily. CellCept is on hold. -Continue to follow renal function Normocytic anemia -Follow CBC -No indication for transfusion at this time Diabetes mellitus type 2 with episodes of hypoglycemia -Patient with significant hyperglycemia. Start NovoLog 2 units every 6 hours in addition to sliding scale every 6 hours -Levemir 13 units twice daily -Follow blood sugars Chronic conditions BPH Carotid stenosis Hepatitis C Hypertension Dyslipidemia Osteoarthritis Vitamin D deficiency Pulmonary embolism ruled out Imaging: Chest x-ray: Continued Left midlung nodularity Data Review: Labs reviewed from today include CBC and CMP which are remarkable for hemoglobin 7.7, white blood cell count 15.2, sodium 126, potassium 5.2, carbon dioxide 12, glucose 274 DVT prophylaxis: Lovenox Anticipated discharge date: Pending Clinical Course Anticipated discharge place: Pending Clinical Course This dictation was prepared using [email or web address] voice recognition software. Though every attempt is made to correct errors during dictation some may still exist. Objective - Vital Signs Vital signs: Vital Signs Temp 98.0 F 07/24/23 08:00 Pulse 71 07/24/23 16:38 Resp 25 H 07/24/23 10:00 BP 105/61 07/24/23 07:00 Pulse Ox 99 07/24/23 10:00 FiO2 40 07/24/23 16:25 Intake & Output 07/23/23 07/24/23 07/24/23 18:59 06:59 18:59 Intake Total 6935.210 0556.981 248 Output Total 225 75 30 Balance 8153.578 7727.981 218 Weight 88.9 kg 88.9 kg Intake: IV 666 496 148 0.9 530 360 130 Cefepime 2 gm In Sodium 100 100 Chloride 0.9% 100 ml @ 25 mls/hr IVPB Q12HR MARCEL Rx #:[id number] pressure bag 36 36 18 Intake, IV Titration 253.151 250.981 100 Amount propofoL 1,000 mg In 253.151 250.981 100 Empty Bag 1 bag @ 15 MCG/ KG/MIN 7.267 mls/hr IV . [id number] MARCEL Rx#:[id number] Tube Feeding 408 462 Other 90 90 Output: Urine 225 75 30 Other: Voiding Method Indwelling Catheter Indwelling Catheter Indwelling Catheter # Bowel Movements 1 ABP, PAP, CO, CI - Last Documented Arterial Blood Pressure 123/49 - Labs CBC & Chem 7: 07/24/23 04:38 07/24/23 04:38 Labs: Abnormal Lab Results - Last 24 Hours (Table) 07/22/23 07/23/23 07/24/23 Range/Units 06:27 20:08 00:55 WBC (3.8-10.6) k/uL RBC (4.30-5.90) m/uL Hgb (13.0-17.5) gm/dL Hct (39.0-53.0) % MCHC (31.0-37.0) g/dL Neutrophils # (1.3-7.7) k/uL Lymphocytes # (1.0-4.8) k/uL PT (10.0-12.5) sec INR (<1.2) ABG pH (7.35-7.45) ABG pCO2 (35-45) mmHg ABG pO2 (83-108) mmHg ABG HCO3 (21-25) mmol/L ABG Total CO2 (19-24) mmol/L ABG O2 Saturation (94-97) % Sodium (137-145) mmol/L Potassium (3.5-5.1) mmol/L Carbon Dioxide (22-30) mmol/L BUN (9-20) mg/dL Creatinine (0.66-1.25) mg/dL Glucose (74-99) mg/dL POC Glucose (mg/dL) 276 H 296 H (70-110) mg/dL Calcium (8.4-10.2) mg/dL ALT (4-49) U/L Alkaline Phosphatase (38-126) U/L Total Protein (6.3-8.2) g/dL Albumin (3.5-5.0) g/dL Tacrolimus 22.7 H (5.0-20.0) ng/mL 07/24/23 07/24/23 07/24/23 Range/Units 04:22 04:38 04:38 WBC 15.2 H (3.8-10.6) k/uL RBC 2.63 L (4.30-5.90) m/uL Hgb 7.7 L (13.0-17.5) gm/dL Hct 25.0 L (39.0-53.0) % MCHC 30.7 L (31.0-37.0) g/dL Neutrophils # 13.8 H (1.3-7.7) k/uL Lymphocytes # 0.6 L (1.0-4.8) k/uL PT 12.6 H (10.0-12.5) sec INR 1.2 H (<1.2) ABG pH (7.35-7.45) ABG pCO2 (35-45) mmHg ABG pO2 (83-108) mmHg ABG HCO3 (21-25) mmol/L ABG Total CO2 (19-24) mmol/L ABG O2 Saturation (94-97) % Sodium (137-145) mmol/L Potassium (3.5-5.1) mmol/L Carbon Dioxide (22-30) mmol/L BUN (9-20) mg/dL Creatinine (0.66-1.25) mg/dL Glucose (74-99) mg/dL POC Glucose (mg/dL) 306 H (70-110) mg/dL Calcium (8.4-10.2) mg/dL ALT (4-49) U/L Alkaline Phosphatase (38-126) U/L Total Protein (6.3-8.2) g/dL Albumin (3.5-5.0) g/dL Tacrolimus (5.0-20.0) ng/mL 07/24/23 07/24/23 07/24/23 Range/Units 04:38 04:57 07:07 WBC (3.8-10.6) k/uL RBC (4.30-5.90) m/uL Hgb (13.0-17.5) gm/dL Hct (39.0-53.0) % MCHC (31.0-37.0) g/dL Neutrophils # (1.3-7.7) k/uL Lymphocytes # (1.0-4.8) k/uL PT (10.0-12.5) sec INR (<1.2) ABG pH 7.30 L (7.35-7.45) ABG pCO2 30 L (35-45) mmHg ABG pO2 146 H (83-108) mmHg ABG HCO3 15 L (21-25) mmol/L ABG Total CO2 16 L (19-24) mmol/L ABG O2 Saturation 98.9 H (94-97) % Sodium 126 L (137-145) mmol/L Potassium 5.2 H (3.5-5.1) mmol/L Carbon Dioxide 12 L (22-30) mmol/L BUN 42 H (9-20) mg/dL Creatinine 1.85 H (0.66-1.25) mg/dL Glucose 274 H (74-99) mg/dL POC Glucose (mg/dL) 296 H (70-110) mg/dL Calcium 7.7 L (8.4-10.2) mg/dL ALT 52 H (4-49) U/L Alkaline Phosphatase 596 H (38-126) U/L Total Protein 4.5 L (6.3-8.2) g/dL Albumin 2.0 L (3.5-5.0) g/dL Tacrolimus (5.0-20.0) ng/mL 07/24/23 07/24/23 Range/Units 10:28 12:17 WBC (3.8-10.6) k/uL RBC (4.30-5.90) m/uL Hgb (13.0-17.5) gm/dL Hct (39.0-53.0) % MCHC (31.0-37.0) g/dL Neutrophils # (1.3-7.7) k/uL Lymphocytes # (1.0-4.8) k/uL PT (10.0-12.5) sec INR (<1.2) ABG pH (7.35-7.45) ABG pCO2 (35-45) mmHg ABG pO2 (83-108) mmHg ABG HCO3 (21-25) mmol/L ABG Total CO2 (19-24) mmol/L ABG O2 Saturation (94-97) % Sodium (137-145) mmol/L Potassium (3.5-5.1) mmol/L Carbon Dioxide (22-30) mmol/L BUN (9-20) mg/dL Creatinine (0.66-1.25) mg/dL Glucose (74-99) mg/dL POC Glucose (mg/dL) 259 H 264 H (70-110) mg/dL Calcium (8.4-10.2) mg/dL ALT (4-49) U/L Alkaline Phosphatase (38-126) U/L Total Protein (6.3-8.2) g/dL Albumin (3.5-5.0) g/dL Tacrolimus (5.0-20.0) ng/mL Microbiology - Last 24 Hours (Table) 07/22/23 10:45 Blood Culture - Preliminary Blood 07/22/23 08:15 Blood Culture - Preliminary Blood 07/22/23 11:55 Gram Stain - Preliminary Sputum
[2023-07-24 17:20] LABS: Glucose,Whole Blood 341 mg/dL (70-110)
[2023-07-24 17:36] LABS: African American GFR (CKD) 34 (>60 ml/min/1.73 sqM); Anion Gap 10 mmol/L; Blood Urea Nitrogen 44 mg/dL (9-20); Calcium 7.5 mg/dL (8.4-10.2); Carbon Dioxide 13 mmol/L (22-30); Chloride 103 mmol/L (98-107); Glucose 306 mg/dL (74-99); Non-African American GFR(CKD) 30 (>60 ml/min/1.73 sqM); Potassium 5.3 mmol/L (3.5-5.1); Sodium 126 mmol/L (137-145)
--- NOTE | 2023-07-24 17:55 | P.PN ---
Subjective Patient is seen for follow-up for chronic kidney disease. He remains on the vent. Maintained on bicarb drip. Urine output at about 5 cc an hour. Serum creatinine at 2.1 with CO2 at 13. Patient is not hypotensive. Objective - Vital Signs Vital signs: Vital Signs Temp 98.0 F 07/24/23 08:00 Pulse 71 07/24/23 16:38 Resp 25 H 07/24/23 10:00 BP 105/61 07/24/23 07:00 Pulse Ox 99 07/24/23 10:00 FiO2 40 07/24/23 16:25 Intake & Output 07/23/23 07/24/23 07/24/23 18:59 06:59 18:59 Intake Total 5910.384 7548.981 898 Output Total 225 75 45 Balance 0842.703 4751.981 853 Weight 88.9 kg 88.9 kg Intake: IV 666 496 198 0.9 530 360 180 Cefepime 2 gm In Sodium 100 100 Chloride 0.9% 100 ml @ 25 mls/hr IVPB Q12HR [facility]ARCEL Rx #:[id number] pressure bag 36 36 18 Intake, IV Titration 253.151 250.981 700 Amount Dextrose 5% in Water 1, 500 000 ml @ 100 mls/hr IV . [id number] MARCEL with Sodium Bicarb (1 Meq/ml) 150 ml Rx#:[id number] propofoL 1,000 mg In 253.151 250.981 200 Empty Bag 1 bag @ 15 MCG/ KG/MIN 7.267 mls/hr IV . [id number] MARCEL Rx#:[id number] Tube Feeding 408 462 Other 90 90 Output: Urine 225 75 45 Other: Voiding Method Indwelling Catheter Indwelling Catheter Indwelling Catheter # Bowel Movements 1 ABP, PAP, CO, CI - Last Documented Arterial Blood Pressure 123/49 - Exam Patient is sedated and on the vent Examination of the heart S1 and S2 Examination of the lungs bilateral breath sounds are heard Abdomen is soft Examination of lower extremities shows no significant edema - Labs CBC & Chem 7: 07/24/23 04:38 07/24/23 17:08 Labs: Abnormal Lab Results - Last 24 Hours (Table) 07/22/23 07/23/23 07/24/23 Range/Units 06:27 20:08 00:55 WBC (3.8-10.6) k/uL RBC (4.30-5.90) m/uL Hgb (13.0-17.5) gm/dL Hct (39.0-53.0) % MCHC (31.0-37.0) g/dL Neutrophils # (1.3-7.7) k/uL Lymphocytes # (1.0-4.8) k/uL PT (10.0-12.5) sec INR (<1.2) ABG pH (7.35-7.45) ABG pCO2 (35-45) mmHg ABG pO2 (83-108) mmHg ABG HCO3 (21-25) mmol/L ABG Total CO2 (19-24) mmol/L ABG O2 Saturation (94-97) % Sodium (137-145) mmol/L Potassium (3.5-5.1) mmol/L Carbon Dioxide (22-30) mmol/L BUN (9-20) mg/dL Creatinine (0.66-1.25) mg/dL Glucose (74-99) mg/dL POC Glucose (mg/dL) 276 H 296 H (70-110) mg/dL Calcium (8.4-10.2) mg/dL ALT (4-49) U/L Alkaline Phosphatase (38-126) U/L Total Protein (6.3-8.2) g/dL Albumin (3.5-5.0) g/dL Tacrolimus 22.7 H (5.0-20.0) ng/mL 07/24/23 07/24/23 07/24/23 Range/Units 04:22 04:38 04:38 WBC 15.2 H (3.8-10.6) k/uL RBC 2.63 L (4.30-5.90) m/uL Hgb 7.7 L (13.0-17.5) gm/dL Hct 25.0 L (39.0-53.0) % MCHC 30.7 L (31.0-37.0) g/dL Neutrophils # 13.8 H (1.3-7.7) k/uL Lymphocytes # 0.6 L (1.0-4.8) k/uL PT 12.6 H (10.0-12.5) sec INR 1.2 H (<1.2) ABG pH (7.35-7.45) ABG pCO2 (35-45) mmHg ABG pO2 (83-108) mmHg ABG HCO3 (21-25) mmol/L ABG Total CO2 (19-24) mmol/L ABG O2 Saturation (94-97) % Sodium (137-145) mmol/L Potassium (3.5-5.1) mmol/L Carbon Dioxide (22-30) mmol/L BUN (9-20) mg/dL Creatinine (0.66-1.25) mg/dL Glucose (74-99) mg/dL POC Glucose (mg/dL) 306 H (70-110) mg/dL Calcium (8.4-10.2) mg/dL ALT (4-49) U/L Alkaline Phosphatase (38-126) U/L Total Protein (6.3-8.2) g/dL Albumin (3.5-5.0) g/dL Tacrolimus (5.0-20.0) ng/mL 07/24/23 07/24/23 07/24/23 Range/Units 04:38 04:57 07:07 WBC (3.8-10.6) k/uL RBC (4.30-5.90) m/uL Hgb (13.0-17.5) gm/dL Hct (39.0-53.0) % MCHC (31.0-37.0) g/dL Neutrophils # (1.3-7.7) k/uL Lymphocytes # (1.0-4.8) k/uL PT (10.0-12.5) sec INR (<1.2) ABG pH 7.30 L (7.35-7.45) ABG pCO2 30 L (35-45) mmHg ABG pO2 146 H (83-108) mmHg ABG HCO3 15 L (21-25) mmol/L ABG Total CO2 16 L (19-24) mmol/L ABG O2 Saturation 98.9 H (94-97) % Sodium 126 L (137-145) mmol/L Potassium 5.2 H (3.5-5.1) mmol/L Carbon Dioxide 12 L (22-30) mmol/L BUN 42 H (9-20) mg/dL Creatinine 1.85 H (0.66-1.25) mg/dL Glucose 274 H (74-99) mg/dL POC Glucose (mg/dL) 296 H (70-110) mg/dL Calcium 7.7 L (8.4-10.2) mg/dL ALT 52 H (4-49) U/L Alkaline Phosphatase 596 H (38-126) U/L Total Protein 4.5 L (6.3-8.2) g/dL Albumin 2.0 L (3.5-5.0) g/dL Tacrolimus (5.0-20.0) ng/mL 07/24/23 07/24/23 07/24/23 Range/Units 10:28 12:17 17:08 WBC (3.8-10.6) k/uL RBC (4.30-5.90) m/uL Hgb (13.0-17.5) gm/dL Hct (39.0-53.0) % MCHC (31.0-37.0) g/dL Neutrophils # (1.3-7.7) k/uL Lymphocytes # (1.0-4.8) k/uL PT (10.0-12.5) sec INR (<1.2) ABG pH (7.35-7.45) ABG pCO2 (35-45) mmHg ABG pO2 (83-108) mmHg ABG HCO3 (21-25) mmol/L ABG Total CO2 (19-24) mmol/L ABG O2 Saturation (94-97) % Sodium 126 L (137-145) mmol/L Potassium 5.3 H (3.5-5.1) mmol/L Carbon Dioxide 13 L (22-30) mmol/L BUN 44 H (9-20) mg/dL Creatinine 2.15 H (0.66-1.25) mg/dL Glucose 306 H (74-99) mg/dL POC Glucose (mg/dL) 259 H 264 H (70-110) mg/dL Calcium 7.5 L (8.4-10.2) mg/dL ALT (4-49) U/L Alkaline Phosphatase (38-126) U/L Total Protein (6.3-8.2) g/dL Albumin (3.5-5.0) g/dL Tacrolimus (5.0-20.0) ng/mL 04/29/24 Range/Units 17:18 WBC (3.8-10.6) k/uL RBC (4.30-5.90) m/uL Hgb (13.0-17.5) gm/dL Hct (39.0-53.0) % MCHC (31.0-37.0) g/dL Neutrophils # (1.3-7.7) k/uL Lymphocytes # (1.0-4.8) k/uL PT (10.0-12.5) sec INR (<1.2) ABG pH (7.35-7.45) ABG pCO2 (35-45) mmHg ABG pO2 (83-108) mmHg ABG HCO3 (21-25) mmol/L ABG Total CO2 (19-24) mmol/L ABG O2 Saturation (94-97) % Sodium (137-145) mmol/L Potassium (3.5-5.1) mmol/L Carbon Dioxide (22-30) mmol/L BUN (9-20) mg/dL Creatinine (0.66-1.25) mg/dL Glucose (74-99) mg/dL POC Glucose (mg/dL) 341 H (70-110) mg/dL Calcium (8.4-10.2) mg/dL ALT (4-49) U/L Alkaline Phosphatase (38-126) U/L Total Protein (6.3-8.2) g/dL Albumin (3.5-5.0) g/dL Tacrolimus (5.0-20.0) ng/mL Microbiology - Last 24 Hours (Table) 07/22/23 08:15 Blood Culture - Preliminary Blood 07/22/23 10:45 Blood Culture - Preliminary Blood 07/22/23 11:55 Gram Stain - Preliminary Sputum Assessment and Plan Assessment: 1. Renal and Liver transplant status 2015 [facility]. Managed with Tacrolimus 3/2, CellCept, Prednisone. 2. CKD Stage IIIa due to solitary kidney and chronic KIM usse, Baseline creatinine 1.4-1.6 mg/dL. 3. AVDRF with hypoxia s/p CPA due to bradycardia. 4. HTN with CKD 5. Possibly metastatic CA vs Infectious. 6. Anemia with CKD 7. Metabolic Acidosis with Septic Shock 8. Acute kidney injury, ATN currently oliguric Plan: Continue with IV fluids. Change bicarb drip normal saline with 3 A of sodium bicarb. Overall prognosis is guarded. Continue with oral sodium bicarb Follow-up on Prograf level from today.
[2023-07-24] MEDS: SODIUM CHLORIDE 0.45% 1,000 ML with SODIUM BICARB (1 MEQ/ML) 150 ML IV SCH (18:18)
[2023-07-24 19:42] LABS: Glucose,Whole Blood 372 mg/dL (70-110)
--- NOTE | 2023-07-24 23:20 | CT ---
EXAMINATION TYPE: CT abdomen pelvis wo con DATE OF EXAM: 07/24/2023 COMPARISON: 12/14/2022 INDICATION: HX OF LIVER AND KIDNEY CA. DLP: 1157.60 mGycm, Automated exposure control for dose reduction was used. CONTRAST: 0 mL of Isovue 300. Study performed without Oral Contrast TECHNIQUE: Axial images were obtained from above the diaphragm to the pubic rami in the axial plane a t 5 mm thick sections. Reconstructed images are reviewed on the computer in the coronal plane. FINDINGS: Limited CT sections are obtained the lung bases. There is a complex fluid collection at the right bg ng base. Small nodules are scattered through the lung bases within the [id number]. There is a calc ification in the posterior right lung base may be a calcified granuloma.. CT ABDOMEN: Liver: There is a heterogenous appearance to the liver compatible with extensive metastatic disease. Spleen: Normal Pancreas: Normal Adrenal glands: The adrenal glands are normal. Gallbladder: Surgically absent Kidneys: Bilateral kidneys are atrophic. Primary renal cancer not identified on the basis of this exa m. Patient has known renal cancer however.. No hydronephrosis is present. No cysts are present. Va scular calcifications. Be present. No obstructing renal stones are evident. Transplant kidney: Located within the right hemipelvis. No cysts or masses are evident. No hydronephr osis is evident. Aorta: Vascular calcification is within the aorta. Inferior vena cava: Normal. CT PELVIS: There is a small amount of ascites within the pelvis. Subcutaneous edema is present There are dilated small bowel loops to the left mid abdomen. Air and fecal debris is within the colon . Postsurgical changes are within the transverse colon. There may be a prior right hemicolectomy Appendix: Not identified. No dilated tubular structures or inflammatory changes. Urinary bladder: Decompressed with a Vogel catheter Genitourinary structures: Prostate appears normal. Osseous structures: No suspicious lytic or sclerotic lesions. Bilateral hip pins are present IMPRESSION: 1. Proximal small bowel loops are prominent.. Mid and distal small bowel loops are decompressed. Mil d partial small bowel obstruction or ileus should be considered. 2. Extensive metastasis to the liver. 3. Ascites within the pelvis. 4. Loculated density within the right dependent lung base. Complex fluid or empyema may be present. F ollow-up is recommended.
[2023-07-24 23:43] LABS: Glucose,Whole Blood 278 mg/dL (70-110)
[2023-07-25 03:37] LABS: ALT 65 U/L (4-49); AST 145 U/L (17-59); African American GFR (CKD) 31 (>60 ml/min/1.73 sqM); Albumin 1.9 g/dL (3.5-5.0); Alkaline Phosphatase 527 U/L (38-126); Anion Gap 9 mmol/L; Blood Urea Nitrogen 46 mg/dL (9-20); Calcium 7.2 mg/dL (8.4-10.2); Carbon Dioxide 15 mmol/L (22-30); Chloride 102 mmol/L (98-107); Glucose 279 mg/dL (74-99); Magnesium 1.8 mg/dL (1.6-2.3); Non-African American GFR(CKD) 27 (>60 ml/min/1.73 sqM); Phosphorus 5.4 mg/dL (2.5-4.5); Potassium 4.9 mmol/L (3.5-5.1); Sodium 126 mmol/L (137-145); Total Bilirubin 0.8 mg/dL (0.2-1.3); Total Protein 4.3 g/dL (6.3-8.2)
[2023-07-25] MEDS ORDERED: DOPamine DRIP 800 MG in DEXTROSE/WATER 1 250ML.BAG IV SCH (03:45)
[2023-07-25] MEDS: DEXTROSE/WATER 1 250ML.BAG with DOPamine DRIP 800 MG IV SCH (03:56)
[2023-07-25 03:57] LABS: Basophils % (A) 0 %; Eosinophils # (A) 0.1 k/uL (0-0.7); Eosinophils % (A) 1 %; HCT 23.5 % (39.0-53.0); HGB 7.4 gm/dL (13.0-17.5); Hypochromasia Moderate; Lymphocytes # (A) 0.8 k/uL (1.0-4.8); Lymphocytes % (A) 5 %; MCH 30.3 pg (25.0-35.0); MCHC 31.7 g/dL (31.0-37.0); MCV 95.4 fL (80.0-100.0); Mean Platelet Volume 8.7; Monocytes # (A) 0.6 k/uL (0-1.0); Monocytes % (A) 4 %; Neutrophils # (A) 14.5 k/uL (1.3-7.7); Neutrophils % (A) 90 %; Platelet Count 136 k/uL (150-450); RBC 2.46 m/uL (4.30-5.90); RDW 15.7 % (11.5-15.5); WBC 16.2 k/uL (3.8-10.6)
[2023-07-25] MEDS: MAGNESIUM SULFATE-D5W PMX 1 GM in DEXTROSE/WATER 1 100ML.BAG IVPB ONE (03:58)
[2023-07-25 04:03] LABS: Glucose,Whole Blood 307 mg/dL (70-110)
[2023-07-25 05:11] LABS: ABG Base Excess -8.3 mmol/L; ABG HCO3 18 mmol/L (21-25); ABG Oxygen Saturation 95.9 % (94-97); ABG PCO2 33 mmHg (35-45); ABG PH 7.33 (7.35-7.45); ABG PO2 75 mmHg (83-108); ABG TCO2 19 mmol/L (19-24); Allen Test Performed? Yes
--- NOTE | 2023-07-25 07:55 | P.PN ---
Subjective Progress Note Date: 07/24/23 Principal diagnosis: Reason for follow-up is possible pneumonia Patient is a 72-year-old male with a past medical history negative for hypertension hyperlipidemia reflux, end-stage renal disease s/p renal and liver transplant in 2016 recent vascular bypassed presented to hospital due to abdominal and worsening back pain did have a cardiac arrest for the patient has been intubated and admitted to the ICU. On today's visit that is 07/24/2023,the patient remains to be afebrile, patient is on the vent through the trach FiO2 of 35%, the patient is hemodynamically stable not requiring any pressor support no diarrhea or any other changes reported by nursing staff. Patient white count slightly up to 15.2 today, creatinine is 2.15 blood and sputum cultures currently pending Objective - Vital Signs Vital signs: Vital Signs Temp 98.0 F 07/24/23 08:00 Pulse 69 07/24/23 12:47 Resp 25 H 07/24/23 10:00 BP 105/61 07/24/23 07:00 Pulse Ox 99 07/24/23 10:00 FiO2 40 07/24/23 16:25 Intake & Output 07/23/23 07/24/23 07/24/23 18:59 06:59 18:59 Intake Total 5344.669 2198.981 248 Output Total 225 75 30 Balance 8139.157 9340.981 218 Weight 88.9 kg 88.9 kg Intake: IV 666 496 148 0.9 530 360 130 Cefepime 2 gm In Sodium 100 100 Chloride 0.9% 100 ml @ 25 mls/hr IVPB Q12HR MARCEL Rx #:[id number] pressure bag 36 36 18 Intake, IV Titration 253.151 250.981 100 Amount propofoL 1,000 mg In 253.151 250.981 100 Empty Bag 1 bag @ 15 MCG/ KG/MIN 7.267 mls/hr IV . [id number] MARCEL Rx#:[id number] Tube Feeding 408 462 Other 90 90 Output: Urine 225 75 30 Other: Voiding Method Indwelling Catheter Indwelling Catheter Indwelling Catheter # Bowel Movements 1 ABP, PAP, CO, CI - Last Documented Arterial Blood Pressure 123/49 - Exam GENERAL DESCRIPTION: An elderly male intubated on the vent RESPIRATORY SYSTEM: Unlabored breathing , decreased breath sounds at bases HEART: S1 S2 regular rate and rhythm , ABDOMEN: Soft , no tenderness EXTREMITIES: No edema feet - Labs CBC & Chem 7: 07/25/23 03:17 07/25/23 03:17 Labs: Abnormal Lab Results - Last 24 Hours (Table) 07/22/23 07/23/23 07/24/23 Range/Units 06:27 20:08 00:55 WBC (3.8-10.6) k/uL RBC (4.30-5.90) m/uL Hgb (13.0-17.5) gm/dL Hct (39.0-53.0) % MCHC (31.0-37.0) g/dL Neutrophils # (1.3-7.7) k/uL Lymphocytes # (1.0-4.8) k/uL PT (10.0-12.5) sec INR (<1.2) ABG pH (7.35-7.45) ABG pCO2 (35-45) mmHg ABG pO2 (83-108) mmHg ABG HCO3 (21-25) mmol/L ABG Total CO2 (19-24) mmol/L ABG O2 Saturation (94-97) % Sodium (137-145) mmol/L Potassium (3.5-5.1) mmol/L Carbon Dioxide (22-30) mmol/L BUN (9-20) mg/dL Creatinine (0.66-1.25) mg/dL Glucose (74-99) mg/dL POC Glucose (mg/dL) 276 H 296 H (70-110) mg/dL Calcium (8.4-10.2) mg/dL ALT (4-49) U/L Alkaline Phosphatase (38-126) U/L Total Protein (6.3-8.2) g/dL Albumin (3.5-5.0) g/dL Tacrolimus 22.7 H (5.0-20.0) ng/mL 07/24/23 07/24/23 07/24/23 Range/Units 04:22 04:38 04:38 WBC 15.2 H (3.8-10.6) k/uL RBC 2.63 L (4.30-5.90) m/uL Hgb 7.7 L (13.0-17.5) gm/dL Hct 25.0 L (39.0-53.0) % MCHC 30.7 L (31.0-37.0) g/dL Neutrophils # 13.8 H (1.3-7.7) k/uL Lymphocytes # 0.6 L (1.0-4.8) k/uL PT 12.6 H (10.0-12.5) sec INR 1.2 H (<1.2) ABG pH (7.35-7.45) ABG pCO2 (35-45) mmHg ABG pO2 (83-108) mmHg ABG HCO3 (21-25) mmol/L ABG Total CO2 (19-24) mmol/L ABG O2 Saturation (94-97) % Sodium (137-145) mmol/L Potassium (3.5-5.1) mmol/L Carbon Dioxide (22-30) mmol/L BUN (9-20) mg/dL Creatinine (0.66-1.25) mg/dL Glucose (74-99) mg/dL POC Glucose (mg/dL) 306 H (70-110) mg/dL Calcium (8.4-10.2) mg/dL ALT (4-49) U/L Alkaline Phosphatase (38-126) U/L Total Protein (6.3-8.2) g/dL Albumin (3.5-5.0) g/dL Tacrolimus (5.0-20.0) ng/mL 07/24/23 07/24/23 07/24/23 Range/Units 04:38 04:57 07:07 WBC (3.8-10.6) k/uL RBC (4.30-5.90) m/uL Hgb (13.0-17.5) gm/dL Hct (39.0-53.0) % MCHC (31.0-37.0) g/dL Neutrophils # (1.3-7.7) k/uL Lymphocytes # (1.0-4.8) k/uL PT (10.0-12.5) sec INR (<1.2) ABG pH 7.30 L (7.35-7.45) ABG pCO2 30 L (35-45) mmHg ABG pO2 146 H (83-108) mmHg ABG HCO3 15 L (21-25) mmol/L ABG Total CO2 16 L (19-24) mmol/L ABG O2 Saturation 98.9 H (94-97) % Sodium 126 L (137-145) mmol/L Potassium 5.2 H (3.5-5.1) mmol/L Carbon Dioxide 12 L (22-30) mmol/L BUN 42 H (9-20) mg/dL Creatinine 1.85 H (0.66-1.25) mg/dL Glucose 274 H (74-99) mg/dL POC Glucose (mg/dL) 296 H (70-110) mg/dL Calcium 7.7 L (8.4-10.2) mg/dL ALT 52 H (4-49) U/L Alkaline Phosphatase 596 H (38-126) U/L Total Protein 4.5 L (6.3-8.2) g/dL Albumin 2.0 L (3.5-5.0) g/dL Tacrolimus (5.0-20.0) ng/mL 07/24/23 07/24/23 Range/Units 10:28 12:17 WBC (3.8-10.6) k/uL RBC (4.30-5.90) m/uL Hgb (13.0-17.5) gm/dL Hct (39.0-53.0) % MCHC (31.0-37.0) g/dL Neutrophils # (1.3-7.7) k/uL Lymphocytes # (1.0-4.8) k/uL PT (10.0-12.5) sec INR (<1.2) ABG pH (7.35-7.45) ABG pCO2 (35-45) mmHg ABG pO2 (83-108) mmHg ABG HCO3 (21-25) mmol/L ABG Total CO2 (19-24) mmol/L ABG O2 Saturation (94-97) % Sodium (137-145) mmol/L Potassium (3.5-5.1) mmol/L Carbon Dioxide (22-30) mmol/L BUN (9-20) mg/dL Creatinine (0.66-1.25) mg/dL Glucose (74-99) mg/dL POC Glucose (mg/dL) 259 H 264 H (70-110) mg/dL Calcium (8.4-10.2) mg/dL ALT (4-49) U/L Alkaline Phosphatase (38-126) U/L Total Protein (6.3-8.2) g/dL Albumin (3.5-5.0) g/dL Tacrolimus (5.0-20.0) ng/mL Microbiology - Last 24 Hours (Table) 07/22/23 10:45 Blood Culture - Preliminary Blood 07/22/23 08:15 Blood Culture - Preliminary Blood 07/22/23 11:55 Gram Stain - Preliminary Sputum Assessment and Plan (1) Pneumonia Current Visit: Yes Status: Acute Code(s): J18.9 - PNEUMONIA, UNSPECIFIED ORGANISM SNOMED Code(s): 414138407 (2) Leukocytosis Current Visit: Yes Status: Acute Code(s): D72.829 - ELEVATED WHITE BLOOD CELL COUNT, UNSPECIFIED SNOMED Code(s): 812677099 (3) Penicillin allergy Current Visit: Yes Status: Acute Code(s): Z88.0 - ALLERGY STATUS TO PENICILLIN SNOMED Code(s): 08484514 Plan: 1patient with acute respiratory failure which is likely multifactorial in this patient who did have a cardiac arrest this morning patient did have elevated procalcitonin and a possible component of pneumonia not entirely excluded possible gram-negative 2-blood and sputum culture currently pending 3-patient is afebrile however noticed to have slight worsening of his white count need to monitor closely for now continue with the cefepime while waiting for the culture to finalize Dictation was produced using [employer] dictation software. please excuse any grammatical, word or spelling errors. Time with Patient: Less than 30
[2023-07-25 08:20] LABS: Glucose,Whole Blood 239 mg/dL (70-110)
--- NOTE | 2023-07-25 10:24 | XR ---
EXAMINATION TYPE: XR chest 1V portable DATE OF EXAM: 07/25/2023 COMPARISON: 07/24/2023 INDICATION: Mechanical ventilation TECHNIQUE: Single frontal view of the chest is obtained. FINDINGS: The heart size is normal. The pulmonary vasculature is normal. There is elevation of the right diaphragm. Some mild silhouetting may be present. Correlate for atele ctasis. Endotracheal tube tip is 5.1 cm above the divine. Left central venous catheter is present with the ti p in the superior vena cava region. A second catheter appears to be present with the tip in the super ior vena cava region. Nasogastric tube transverses the thorax tip in the abdomen IMPRESSION: 1. Some mild atelectasis with an elevated right diaphragm. Follow-up is recommended. 2. Lines and catheters discussed above
--- NOTE | 2023-07-25 10:56 | P.PN ---
Subjective Patient is seen for follow-up for chronic kidney disease. He remains on the vent. Maintained on bicarb drip. Urine output at about 5-10 cc an hour. Serum creatinine at 2.3 . Patient is not hypotensive. sedation is being decreased however mentation has not improved yet. Repeat tacrolimus level remains pending Objective - Vital Signs Vital signs: Vital Signs Temp 97.6 F 07/25/23 08:00 Pulse 50 L 07/25/23 10:00 Resp 22 07/25/23 10:00 BP 86/53 07/25/23 10:00 Pulse Ox 99 07/25/23 10:00 FiO2 40 07/25/23 09:06 Intake & Output 07/24/23 07/25/23 07/25/23 18:59 06:59 18:59 Intake Total 6623.957 0795.968 676.414 Output Total 45 70 30 Balance 0491.240 8741.968 646.414 Weight 88.9 kg 88.6 kg Intake: IV 223 1356 452 0.9 190 120 40 Cefepime 2 gm In Sodium 100 Chloride 0.9% 100 ml @ 25 mls/hr IVPB Q12HR [facility] Rx #:[id number] Dextrose 5% in Water 1, 1100 400 000 ml @ 100 mls/hr IV . [id number] MARCEL with Sodium Bicarb (1 Meq/ml) 150 ml Rx#:[id number] pressure bag 33 36 12 Intake, IV Titration 832.134 266.968 136.414 Amount Cefepime 2 gm In Sodium 100 Chloride 0.9% 100 ml @ 25 mls/hr IVPB Q12HR [facility] Rx #:[id number] Dextrose 5% in Water 1, 500 000 ml @ 100 mls/hr IV . [id number] MARCEL with Sodium Bicarb (1 Meq/ml) 150 ml Rx#:[id number] Sodium Chloride 0.45% 1, 100 100 000 ml @ 100 mls/hr IV . [id number] MARCEL with Sodium Bicarb (1 Meq/ml) 150 ml Rx#:[id number] propofoL 1,000 mg In 232.134 166.968 36.414 Empty Bag 1 bag @ 15 MCG/ KG/MIN 7.267 mls/hr IV . [id number] MARCEL Rx#:[id number] Tube Feeding 484 88 Other 90 Output: Urine 45 70 30 Other: Voiding Method Indwelling Catheter Indwelling Catheter Indwelling Catheter # Bowel Movements 1 ABP, PAP, CO, CI - Last Documented Arterial Blood Pressure 110/41 - Exam Patient is sedated and on the vent Examination of the heart S1 and S2 Examination of the lungs bilateral breath sounds are heard Abdomen is soft Examination of lower extremities shows no significant edema - Labs CBC & Chem 7: 07/25/23 03:17 07/25/23 03:17 Labs: Abnormal Lab Results - Last 24 Hours (Table) 07/24/23 07/24/23 07/24/23 Range/Units 12:17 17:08 17:18 WBC (3.8-10.6) k/uL RBC (4.30-5.90) m/uL Hgb (13.0-17.5) gm/dL Hct (39.0-53.0) % RDW (11.5-15.5) % Plt Count (150-450) k/uL Neutrophils # (1.3-7.7) k/uL Lymphocytes # (1.0-4.8) k/uL ABG pH (7.35-7.45) ABG pCO2 (35-45) mmHg ABG pO2 (83-108) mmHg ABG HCO3 (21-25) mmol/L Sodium 126 L (137-145) mmol/L Potassium 5.3 H (3.5-5.1) mmol/L Carbon Dioxide 13 L (22-30) mmol/L BUN 44 H (9-20) mg/dL Creatinine 2.15 H (0.66-1.25) mg/dL Glucose 306 H (74-99) mg/dL POC Glucose (mg/dL) 264 H 341 H (70-110) mg/dL Calcium 7.5 L (8.4-10.2) mg/dL Phosphorus (2.5-4.5) mg/dL AST (17-59) U/L ALT (4-49) U/L Alkaline Phosphatase (38-126) U/L Total Protein (6.3-8.2) g/dL Albumin (3.5-5.0) g/dL 07/24/23 07/24/23 07/25/23 Range/Units 19:40 23:41 03:17 WBC 16.2 H (3.8-10.6) k/uL RBC 2.46 L (4.30-5.90) m/uL Hgb 7.4 L (13.0-17.5) gm/dL Hct 23.5 L (39.0-53.0) % RDW 15.7 H (11.5-15.5) % Plt Count 136 L (150-450) k/uL Neutrophils # 14.5 H (1.3-7.7) k/uL Lymphocytes # 0.8 L (1.0-4.8) k/uL ABG pH (7.35-7.45) ABG pCO2 (35-45) mmHg ABG pO2 (83-108) mmHg ABG HCO3 (21-25) mmol/L Sodium (137-145) mmol/L Potassium (3.5-5.1) mmol/L Carbon Dioxide (22-30) mmol/L BUN (9-20) mg/dL Creatinine (0.66-1.25) mg/dL Glucose (74-99) mg/dL POC Glucose (mg/dL) 372 H 278 H (70-110) mg/dL Calcium (8.4-10.2) mg/dL Phosphorus (2.5-4.5) mg/dL AST (17-59) U/L ALT (4-49) U/L Alkaline Phosphatase (38-126) U/L Total Protein (6.3-8.2) g/dL Albumin (3.5-5.0) g/dL 07/25/23 07/25/23 07/25/23 Range/Units 03:17 04:02 05:05 WBC (3.8-10.6) k/uL RBC (4.30-5.90) m/uL Hgb (13.0-17.5) gm/dL Hct (39.0-53.0) % RDW (11.5-15.5) % Plt Count (150-450) k/uL Neutrophils # (1.3-7.7) k/uL Lymphocytes # (1.0-4.8) k/uL ABG pH 7.33 L (7.35-7.45) ABG pCO2 33 L (35-45) mmHg ABG pO2 75 L (83-108) mmHg ABG HCO3 18 L (21-25) mmol/L Sodium 126 L (137-145) mmol/L Potassium (3.5-5.1) mmol/L Carbon Dioxide 15 L (22-30) mmol/L BUN 46 H (9-20) mg/dL Creatinine 2.35 H (0.66-1.25) mg/dL Glucose 279 H (74-99) mg/dL POC Glucose (mg/dL) 307 H (70-110) mg/dL Calcium 7.2 L (8.4-10.2) mg/dL Phosphorus 5.4 H (2.5-4.5) mg/dL AST 145 H (17-59) U/L ALT 65 H (4-49) U/L Alkaline Phosphatase 527 H (38-126) U/L Total Protein 4.3 L (6.3-8.2) g/dL Albumin 1.9 L (3.5-5.0) g/dL 07/25/23 Range/Units 08:18 WBC (3.8-10.6) k/uL RBC (4.30-5.90) m/uL Hgb (13.0-17.5) gm/dL Hct (39.0-53.0) % RDW (11.5-15.5) % Plt Count (150-450) k/uL Neutrophils # (1.3-7.7) k/uL Lymphocytes # (1.0-4.8) k/uL ABG pH (7.35-7.45) ABG pCO2 (35-45) mmHg ABG pO2 (83-108) mmHg ABG HCO3 (21-25) mmol/L Sodium (137-145) mmol/L Potassium (3.5-5.1) mmol/L Carbon Dioxide (22-30) mmol/L BUN (9-20) mg/dL Creatinine (0.66-1.25) mg/dL Glucose (74-99) mg/dL POC Glucose (mg/dL) 239 H (70-110) mg/dL Calcium (8.4-10.2) mg/dL Phosphorus (2.5-4.5) mg/dL AST (17-59) U/L ALT (4-49) U/L Alkaline Phosphatase (38-126) U/L Total Protein (6.3-8.2) g/dL Albumin (3.5-5.0) g/dL Microbiology - Last 24 Hours (Table) 07/22/23 11:55 Gram Stain - Final Sputum Sputum Culture - Final 07/22/23 10:45 Blood Culture - Preliminary Blood 07/22/23 08:15 Blood Culture - Preliminary Blood Assessment and Plan Assessment: 1. Renal and Liver transplant status 2015 [facility]. Managed with Tacrolimus 3/2, CellCept, Prednisone. tacrolimus level was elevated at 22 however timing may not have been appropriate. Repeat level from yesterday is pending. CellCept is on hold. I will also hold the tacrolimus until level is back. 2. CKD Stage IIIa due to solitary kidney and chronic KIM usse, Baseline creatinine 1.4-1.6 mg/dL. 3. AVDRF with hypoxia s/p CPA due to bradycardia. 4. HTN with CKD 5. Possibly metastatic CA vs Infectious. 6. Anemia with CKD 7. Metabolic Acidosis with Septic Shock 8. Acute kidney injury, ATN currently oliguric 9. Bradycardia, maintained on dopamine. Being followed by cardiology Plan: Continue with IV fluids. Continue dopamine Hold tacrolimus Change bicarb drip to half-normal saline with 2 A of sodium bicarb. Overall prognosis is guarded. Continue with oral sodium bicarb Follow-up on Prograf level from yesterday
[2023-07-25 11:16] LABS: Glucose,Whole Blood 157 mg/dL (70-110)
[2023-07-25] MEDS: SODIUM BICARB 8.4% 50 ML SYR (1 MEQ/ML) IV STA (11:44)
[2023-07-25] MEDS: SODIUM CHLORIDE 0.45% IV SCH (11:44)
[2023-07-25] MEDS: SODIUM BICARB IV SCH (11:44)
--- NOTE | 2023-07-25 12:59 | P.CRDCN ---
History of Present Illness Consult date: 07/25/23 History of present illness: History of Present Illness: The patient is a 72-year-old male, status post renal and liver transplant in [place] who presented to the hospital with symptoms of progressive dyspnea, back discomfort, on 21 July he had an episode of bradycardia with pulseless electrical activity requiring mechanical ventilation and CPR. His CAT scan showed bilateral pulmonary nodule and liver nodule raising the possibility of infection versus metastatic disease. Cardiology consultation was requested because of an episode of complete heart block last night. His echocardiogram showed a preserved systolic function with no significant valvular abnormality. According to the records he has a history of hypertension, hyperlipidemia. No history of ischemic heart disease is available in the records. He was initiated on IV dopamine and has episodes of second-degree AV block but no third-degree AV block since. His repeat CT scan done yesterday showed evidence to suggest extensive metastasis to the liver with ascites within the pelvis. On present ation his troponin was normal. Medications: IV dopamine, Lovenox subcu, fentanyl patch, Solu-Cortef, insulin, propofol, sodium bicarb Review of Systems: Could not be obtained, patient is intubated and sedated Physical Examination: 72-year-old male, intubated and sedated,Blood pressure 139/50, Heart rate 46 Head: Normocephalic. Eyes: Sclerae nonicteric. Neck: Good carotid upstroke, no bruit, no jugular venous distention. Lungs: Clear to auscultation. Anteriorly Heart: Regular rate and rhythm, S1-S2, no S3, no rub. Systolic ejection murmur. Abdomen: Soft , positive bowel sounds no organomegaly. Extremities: +1 edema, intact distal pulses. Labs: Hemoglobin 7.4, WBC 16.2, potassium 4.9, BUN 46, creatinine 2.35, ALT 65 and AST 145. Chest x-ray with mild pulmonary congestion and left mid lung nodularity EKG: On admission sinus mechanism rate of 69 with left axis deviation and cannot ex clude anteroseptal myocardial infarction Impression: 1. Episodes of complete heart block, etiology unclear. On presentation the patient was in sinus mechanism 2. Respiratory failure with cardiopulmonary arrest, etiology unclear 3. Status post renal and liver transplant 4. Possible liver metastasis, primary unknown 5. Possible anoxic encephalopathy 6. History of hypertension 7. Severe back discomfort Plan: 1. Obtain a limited echo to evaluate systolic function and see if there is any change 2. Continue IV dopamine for now 3. Obtain serial enzymes 4. At this time await further evaluation regarding the possible liver status and the mental status to decide if patient requires any further invasive cardiac workup including pacemaker 5. Depending on his progress further recommendations will be made, prognosis is guarded. Thank you for this consult we will follow with you Past Medical History Past Medical History: GERD/Reflux, Hyperlipidemia, Hypertension, Liver Disease, Renal Disease, Vascular Disorder Additional Past Medical History / Comment(s): liver/kidney failure with transplant at [facility] in 2016, IDDM type II, PVD, gout History of Any Multi-Drug Resistant Organisms: None Reported Past Surgical History: Cholecystectomy, Orthopedic Surgery Additional Past Surgical History / Comment(s): kidney and liver transplant september 2015, rt rotator cuff, bilateral hip fractures/surgery, ERCP with stent/since removed, R chest port. Past Anesthesia/Blood Transfusion Reactions: No Reported Reaction Past Psychological History: No Psychological Hx Reported Smoking Status: Former smoker Past Alcohol Use History: None Reported Past Drug Use History: Heroin - Past Family History Mother Family Medical History: Diabetes Mellitus Father Family Medical History: No Reported History Brother(s) Family Medical History: Diabetes Mellitus Sister(s) Family Medical History: Diabetes Mellitus Daughter(s) Family Medical History: No Reported History Medications and Allergies Home Medications Medication Instructions Recorded Confirmed Type INSULIN ASPART (NovoLOG) [NovoLOG See Protocol SQ AC-TID 04/21/22 07/19/23 History (formulary)] Latanoprost [Latanoprost 0.005%] 1 drop BOTH EYES HS 04/21/22 07/19/23 History NIFEdipine [Adalat CC] 60 mg PO BID 04/21/22 07/19/23 History Omeprazole 20 mg PO QAM 04/21/22 07/19/23 History carvediloL [Coreg] 6.25 mg PO BID 04/21/22 07/19/23 History lamiVUDine [Epivir] 100 mg PO QAM 04/21/22 07/19/23 History mycophenolate mofetiL [Cellcept] 250 mg PO BID 04/21/22 07/19/23 History predniSONE 2 mg PO QAM 04/21/22 07/19/23 History ursodioL [Ursodiol] 300 mg PO TID 04/21/22 07/19/23 History Insulin Glargine,Hum.rec.anlog 20 units SQ HS 03/29/23 07/19/23 History [Lantus Solostar Pen] allopurinoL 100 mg PO QAM 03/29/23 07/19/23 History Prevagen Memory Supplement 1 dose PO DAILY 05/25/23 07/19/23 History Aspirin EC [Ecotrin Low Dose] 81 mg PO DAILY 07/19/23 07/19/23 History Calcium Carbonate/Vitamin D3 1 tab PO BID 07/19/23 07/19/23 History [Calcium 500 mg-Vit D3 5 mcg (200 Unit)] Cholecalciferol [Vitamin D3 (10 10 mcg PO DAILY 07/19/23 07/19/23 History Mcg = 400 Iu)] HYDROcodone/APAP 10-325MG [Rampart 1 tab PO Q6H PRN 07/19/23 07/19/23 History 10-325] Lactulose [Constulose] 20 gm PO BID PRN 07/19/23 07/19/23 History Magnesium Oxide [Mag-Ox] 400 mg PO DAILY 07/19/23 07/19/23 History Melatonin 6 mg PO HS 07/19/23 07/19/23 History Rosuvastatin Calcium 5 mg PO DAILY 07/19/23 07/19/23 History Sennosides/Docusate Sodium [Senna 1 tab PO BID 07/19/23 07/19/23 History Plus 8.6-50 mg Tablet] Tacrolimus [Prograf] 2 mg PO HS 07/19/23 07/19/23 History Tacrolimus [Prograf] 3 mg PO DAILY 07/19/23 07/19/23 History Timolol Maleate/Pf [Timoptic 0.25% 1 drop BOTH EYES BID 07/19/23 07/19/23 History Ocudose] fentaNYL 25MCG/HR PATCH [Duragesic 1 patch TRANSDERM Q72H 07/19/23 07/19/23 History 25MCG/HR] hydrALAZINE HCL 75 mg PO TID 07/19/23 07/19/23 History Allergies Allergy/AdvReac Type Severity Reaction Status Date / Time Penicillins Allergy Unknown Verified 07/19/23 15:21 tromethamine Allergy Unknown Verified 07/19/23 15:21 hydrocodone AdvReac see comment Verified 07/19/23 15:21 morphine AdvReac see comment Verified 07/19/23 15:21 NSAIDS (Non-Steroidal AdvReac Increased Verified 07/19/23 15:21 Anti-Inflamma creatine kinase level oxycodone AdvReac see comment Verified 07/19/23 15:21 Physical Exam Vitals: Vital Signs Temp Pulse Pulse Resp BP BP BP 07/25/23 12:05 45 L 07/25/23 12:00 97.6 F 45 L 30 H 07/25/23 11:58 07/25/23 11:57 07/25/23 11:42 07/25/23 11:40 44 L 07/25/23 11:00 68 26 H 117/80 07/25/23 10:00 50 L 22 86/53 07/25/23 09:11 52 L 07/25/23 09:06 07/25/23 09:02 52 L 07/25/23 09:00 61 17 90/55 07/25/23 08:00 97.6 F 60 20 91/57 07/25/23 07:00 62 26 H 93/56 07/25/23 06:00 50 L 26 H 106/56 07/25/23 05:00 47 L 25 H 110/50 07/25/23 04:28 50 L 07/25/23 04:12 42 L 07/25/23 04:10 07/25/23 04:00 96.9 F L 50 L 20 102/52 07/25/23 03:00 76 134/72 07/25/23 02:00 63 64 20 104/56 113/60 07/25/23 01:50 66 07/25/23 01:34 62 07/25/23 01:31 07/25/23 01:00 64 102/59 07/25/23 00:00 62 131/65 07/24/23 23:54 96.8 F L 63 20 131/65 07/24/23 23:00 64 64 20 110/60 127/62 07/24/23 22:01 68 20 110/59 07/24/23 22:00 68 108/63 07/24/23 21:47 68 07/24/23 21:32 07/24/23 21:15 96.6 F L 65 20 138/54 07/24/23 21:00 63 109/58 07/24/23 20:00 64 07/24/23 19:00 106/56 07/24/23 18:00 68 68 24 118/63 125/73 07/24/23 17:00 70 125/63 07/24/23 16:38 71 07/24/23 16:28 70 07/24/23 16:25 07/24/23 16:00 98.1 F 71 71 23 126/66 139/57 07/24/23 15:00 110/63 07/24/23 14:00 71 70 24 105/62 125/50 07/24/23 13:00 70 91/64 Pulse Ox FiO2 07/25/23 12:05 07/25/23 12:00 98 07/25/23 11:58 40 07/25/23 11:57 40 07/25/23 11:42 40 07/25/23 11:40 07/25/23 11:00 99 07/25/23 10:00 99 07/25/23 09:11 07/25/23 09:06 40 07/25/23 09:02 07/25/23 09:00 99 07/25/23 08:00 98 40 07/25/23 07:00 07/25/23 06:00 82 L 07/25/23 05:00 96 07/25/23 04:28 07/25/23 04:12 07/25/23 04:10 40 07/25/23 04:00 40 07/25/23 03:00 99 07/25/23 02:00 100 40 07/25/23 01:50 07/25/23 01:34 07/25/23 01:31 40 07/25/23 01:00 99 07/25/23 00:00 100 40 07/24/23 23:54 100 40 07/24/23 23:00 100 40 07/24/23 22:01 100 40 07/24/23 22:00 100 07/24/23 21:47 07/24/23 21:32 40 07/24/23 21:15 40 L 07/24/23 21:00 07/24/23 20:00 100 40 07/24/23 19:00 100 07/24/23 18:00 100 40 07/24/23 17:00 100 07/24/23 16:38 07/24/23 16:28 07/24/23 16:25 40 07/24/23 16:00 100 40 07/24/23 15:00 07/24/23 14:00 100 40 07/24/23 13:00 100 Intake and Output 07/24/23 07/25/23 07/25/23 22:59 06:59 14:59 Intake Total 2540.124 2062.255 911.905 Output Total 15 65 40 Balance 7436.512 0573.255 871.905 Intake: IV 504 904 678 0.9 80 80 60 Cefepime 2 gm In Sodium 100 Chloride 0.9% 100 ml @ 25 mls/hr IVPB Q12HR [facility] Rx #:[id number] Dextrose 5% in Water 1, 300 800 600 000 ml @ 100 mls/hr IV . [id number] [facility] with Sodium Bicarb (1 Meq/ml) 150 ml Rx#:[id number] pressure bag 24 24 18 Intake, IV Titration 683.847 115.255 145.905 Amount Cefepime 2 gm In Sodium 100 Chloride 0.9% 100 ml @ 25 mls/hr IVPB Q12HR [facility] Rx #:[id number] Dextrose 5% in Water 1, 300 000 ml @ 100 mls/hr IV . [id number] [facility] with Sodium Bicarb (1 Meq/ml) 150 ml Rx#:[id number] Sodium Chloride 0.45% 1, 200 000 ml @ 100 mls/hr IV . [id number] [facility] with Sodium Bicarb (1 Meq/ml) 150 ml Rx#:[id number] propofoL 1,000 mg In 183.847 115.255 45.905 Empty Bag 1 bag @ 15 MCG/ KG/MIN 7.267 mls/hr IV . [id number] [facility] Rx#:[id number] Tube Feeding 132 352 88 Other 30 60 Output: Urine 15 65 40 Other: Voiding Method Indwelling Catheter Indwelling Catheter Indwelling Catheter # Bowel Movements 1 Weight 88.6 kg ABP, PAP, CO, CI - Last 8 Hours Arterial Blood Pressure 139/45 Arterial Blood Pressure 146/52 Arterial Blood Pressure 110/41 Arterial Blood Pressure 107/44 Arterial Blood Pressure 101/38 Arterial Blood Pressure 105/40 Arterial Blood Pressure 120/42 Arterial Blood Pressure 126/48 Results 07/25/23 03:17 07/25/23 03:17 Cardiac Enzymes 07/25/23 07/25/23 Range/Units 03:17 11:16 AST 145 H (17-59) U/L Troponin I 1.020 H* (0.000-0.034) ng/mL CBC 07/25/23 Range/Units 03:17 WBC 16.2 H (3.8-10.6) k/uL RBC 2.46 L (4.30-5.90) m/uL Hgb 7.4 L (13.0-17.5) gm/dL Hct 23.5 L (39.0-53.0) % Plt Count 136 L (150-450) k/uL Comprehensive Metabolic Panel 07/24/23 07/25/23 Range/Units 17:08 03:17 Sodium 126 L 126 L (137-145) mmol/L Potassium 5.3 H 4.9 (3.5-5.1) mmol/L Chloride 103 102 (98-107) mmol/L Carbon Dioxide 13 L 15 L (22-30) mmol/L BUN 44 H 46 H (9-20) mg/dL Creatinine 2.15 H 2.35 H (0.66-1.25) mg/dL Glucose 306 H 279 H (74-99) mg/dL Calcium 7.5 L 7.2 L (8.4-10.2) mg/dL AST 145 H (17-59) U/L ALT 65 H (4-49) U/L Alkaline Phosphatase 527 H (38-126) U/L Total Protein 4.3 L (6.3-8.2) g/dL Albumin 1.9 L (3.5-5.0) g/dL Current Medications Generic Name Dose Route Start Last Admin Trade Name Freq PRN Reason Stop Dose Admin Albuterol/Ipratropium 3 ml 07/21/23 16:27 Ipratropium-Albuterol 3 Ml Neb INHALATION RT-Q2H PRN Shortness Of Breath Or Wheezing Albuterol/Ipratropium 3 ml 07/22/23 12:00 07/25/23 11:40 Ipratropium-Albuterol 3 Ml Neb INHALATION 3 ml RT-Q4H [facility]EL Administration Chlorhexidine Gluconate 15 ml 07/22/23 09:00 07/25/23 08:19 Chlorhexidine Gluconate 15 Ml Cup MUCOUS MEM 15 ml BID [facility] Administration Dextrose/Water 25 ml 07/24/23 08:28 Dextrose 50% Syringe 50 Ml IVP PER PROTOCOL PRN Hypoglycemia Protocol Dextrose/Water 50 ml 07/24/23 08:28 Dextrose 50% Syringe 50 Ml IVP PER PROTOCOL PRN Hypoglycemia Protocol Enoxaparin Sodium 30 mg 07/26/23 09:00 Enoxaparin 30 Mg/0.3 Ml Syringe SQ DAILY [facility] Fentanyl 1 patch 07/21/23 17:00 07/24/23 16:58 Fentanyl 75mcg/Hr Patch TRANSDERM 1 patch Q72H [facility] Administration Protocol Fentanyl Citrate 50 mcg 07/23/23 10:35 Fentanyl (Pf) 50 Mcg/Ml 2 Ml Amp IVP Q4HR PRN Breakthrough Pain Hydrocortisone Sodium Succinate 50 mg 07/25/23 16:00 Hydrocortisone Succinate 100 Mg/2 Ml Vial IV Q8HR [facility] Propofol 1,000 mg/ IV Solution 100 mls @ 7.267 mls/hr 07/22/23 06:00 07/25/23 11:49 IV 0 mcg/kg/min .[id number] [facility] 0 mls/hr Titration Protocol 15 MCG/KG/MIN Cefepime HCl 2 gm/ Sodium 100 mls @ 25 mls/hr 07/22/23 10:00 07/25/23 08:19 Chloride IVPB 25 mls/hr Q12HR [facility] Administration Protocol Dopamine HCl/Dextrose 800 mg/ 250 mls @ 8.334 mls/hr 07/25/23 03:45 07/25/23 03:56 IV Solution IV 8.334 mls/hr .Q24H [facility] Administration 5 MCG/KG/MIN Sodium Bicarbonate 100 ml/ 1,100 mls @ 100 mls/hr 07/25/23 11:00 07/25/23 11:44 Sodium Chloride IV 100 mls/hr .Q11H [facility] Administration Insulin Aspart 2 unit 07/24/23 20:00 07/25/23 11:42 Insulin Aspart (Novolog) 100 Unit/Ml Vial SQ 2 unit Q4H [facility] Administration Insulin Aspart 0 unit 07/24/23 20:00 07/25/23 11:45 Insulin Aspart (Novolog) 100 Unit/Ml Vial SQ 3 unit Q4H [facility] Administration Protocol Insulin Detemir 13 unit 07/24/23 09:00 07/25/23 08:19 Insulin Detemir (Levemir) 100 Unit/Ml Syr 0.15 unit/kg (13 unit) 13 unit SQ Administration BID@0700,2100 [facility] Latanoprost 1 drops 07/19/23 21:00 07/24/23 19:50 Latanoprost 0.005% Ophth Drops 2.5 Ml Btl BOTH EYES 1 drops HS [facility] Administration Magnesium Hydroxide 2,400 mg 07/20/23 21:06 Magnesium Hydroxide 2,400 Mg/30 Ml Cup PO DAILY PRN Constipation Naloxone HCl 0.2 mg 07/19/23 15:35 07/21/23 10:38 Naloxone 0.4 Mg/Ml 1 Ml Vial IV 0.2 mg Q2M PRN Administration Opioid Reversal Lamivudine [Epivir] 100 mg 07/21/23 09:15 07/25/23 08:20 100 Mg Tablet PO 100 mg QAM [facility] Administration Ondansetron HCl 4 mg 07/19/23 15:35 07/21/23 10:42 Ondansetron 4 Mg/2 Ml Vial IVP 4 mg Q8HR PRN Administration Nausea And Vomiting Pantoprazole Sodium 40 mg 07/19/23 17:30 07/25/23 08:19 Pantoprazole 40 Mg/10 Ml Vial IVP 40 mg DAILY [facility] Administration Senna/Docusate Sodium 2 each 07/21/23 09:00 07/25/23 08:34 Sennosides-Docusate Sodium 1 Each Tab PO Not Given BID [facility] Sodium Bicarbonate 650 mg 07/23/23 09:00 07/25/23 08:19 Sodium Bicarbonate Tab 650 Mg Tab PO 650 mg TID [facility] Administration Timolol Maleate 1 drops 07/19/23 21:00 07/25/23 08:34 Timolol 0.25% Ophth Drops 5 Ml Btl BOTH EYES 1 drops BID [facility] Administration Intake and Output 07/24/23 07/25/23 07/25/23 22:59 06:59 14:59 Intake Total 7613.742 3734.255 911.905 Output Total 15 65 40 Balance 6863.932 5478.255 871.905 Intake: IV 504 904 678 0.9 80 80 60 Cefepime 2 gm In Sodium 100 Chloride 0.9% 100 ml @ 25 mls/hr IVPB Q12HR [facility] Rx #:[id number] Dextrose 5% in Water 1, 300 800 600 000 ml @ 100 mls/hr IV . [id number] [facility] with Sodium Bicarb (1 Meq/ml) 150 ml Rx#:[id number] pressure bag 24 24 18 Intake, IV Titration 683.847 115.255 145.905 Amount Cefepime 2 gm In Sodium 100 Chloride 0.9% 100 ml @ 25 mls/hr IVPB Q12HR [facility] Rx #:[id number] Dextrose 5% in Water 1, 300 000 ml @ 100 mls/hr IV . [id number] [facility] with Sodium Bicarb (1 Meq/ml) 150 ml Rx#:[id number] Sodium Chloride 0.45% 1, 200 000 ml @ 100 mls/hr IV . [id number] [facility] with Sodium Bicarb (1 Meq/ml) 150 ml Rx#:[id number] propofoL 1,000 mg In 183.847 115.255 45.905 Empty Bag 1 bag @ 15 MCG/ KG/MIN 7.267 mls/hr IV . [id number] [facility] Rx#:[id number] Tube Feeding 132 352 88 Other 30 60 Output: Urine 15 65 40 Other: Voiding Method Indwelling Catheter Indwelling Catheter Indwelling Catheter # Bowel Movements 1 Weight 88.6 kg 07/25/23 03:17 07/25/23 03:17
[2023-07-25 13:00] LABS: ABG Base Excess -3.8 mmol/L; ABG HCO3 21 mmol/L (21-25); ABG Oxygen Saturation 97.9 % (94-97); ABG PCO2 36 mmHg (35-45); ABG PH 7.38 (7.35-7.45); ABG PO2 100 mmHg (83-108); ABG TCO2 22 mmol/L (19-24); Allen Test Performed? Yes
--- NOTE | 2023-07-25 13:04 | P.PN ---
Subjective Progress Note Date: 07/25/23 Patient seen in ICU at today's visit, remains ventilated and on pressors. Counts stable, WBC 16.2, hemoglobin 7.4, platelets 136,000. Objective - Vital Signs Vital signs: Vital Signs Temp 97.6 F 07/25/23 12:00 Pulse 45 L 07/25/23 12:05 Resp 30 H 07/25/23 12:00 BP 117/80 07/25/23 11:00 Pulse Ox 98 07/25/23 12:00 FiO2 40 07/25/23 11:58 Intake & Output 07/24/23 07/25/23 07/25/23 18:59 06:59 18:59 Intake Total 5306.962 8665.968 911.905 Output Total 45 70 40 Balance 2589.303 2834.968 871.905 Weight 88.9 kg 88.6 kg Intake: IV 223 1356 678 0.9 190 120 60 Cefepime 2 gm In Sodium 100 Chloride 0.9% 100 ml @ 25 mls/hr IVPB Q12HR [facility] Rx #:[id number] Dextrose 5% in Water 1, 1100 600 000 ml @ 100 mls/hr IV . [id number] [facility] with Sodium Bicarb (1 Meq/ml) 150 ml Rx#:[id number] pressure bag 33 36 18 Intake, IV Titration 832.134 266.968 145.905 Amount Cefepime 2 gm In Sodium 100 Chloride 0.9% 100 ml @ 25 mls/hr IVPB Q12HR [facility] Rx #:[id number] Dextrose 5% in Water 1, 500 000 ml @ 100 mls/hr IV . [id number] [facility] with Sodium Bicarb (1 Meq/ml) 150 ml Rx#:[id number] Sodium Chloride 0.45% 1, 100 100 000 ml @ 100 mls/hr IV . [id number] [facility] with Sodium Bicarb (1 Meq/ml) 150 ml Rx#:[id number] propofoL 1,000 mg In 232.134 166.968 45.905 Empty Bag 1 bag @ 15 MCG/ KG/MIN 7.267 mls/hr IV . [id number] [facility] Rx#:[id number] Tube Feeding 484 88 Other 90 Output: Urine 45 70 40 Other: Voiding Method Indwelling Catheter Indwelling Catheter Indwelling Catheter # Bowel Movements 1 ABP, PAP, CO, CI - Last Documented Arterial Blood Pressure 139/45 - Constitutional General appearance: Present: no acute distress - Respiratory Details: ventilated breath sounds - Cardiovascular Details: bradycardic - Labs CBC & Chem 7: 07/25/23 03:17 07/25/23 03:17 Labs: Abnormal Lab Results - Last 24 Hours (Table) 07/24/23 07/24/23 07/24/23 Range/Units 17:08 17:18 19:40 WBC (3.8-10.6) k/uL RBC (4.30-5.90) m/uL Hgb (13.0-17.5) gm/dL Hct (39.0-53.0) % RDW (11.5-15.5) % Plt Count (150-450) k/uL Neutrophils # (1.3-7.7) k/uL Lymphocytes # (1.0-4.8) k/uL ABG pH (7.35-7.45) ABG pCO2 (35-45) mmHg ABG pO2 (83-108) mmHg ABG HCO3 (21-25) mmol/L Sodium 126 L (137-145) mmol/L Potassium 5.3 H (3.5-5.1) mmol/L Carbon Dioxide 13 L (22-30) mmol/L BUN 44 H (9-20) mg/dL Creatinine 2.15 H (0.66-1.25) mg/dL Glucose 306 H (74-99) mg/dL POC Glucose (mg/dL) 341 H 372 H (70-110) mg/dL Calcium 7.5 L (8.4-10.2) mg/dL Phosphorus (2.5-4.5) mg/dL AST (17-59) U/L ALT (4-49) U/L Alkaline Phosphatase (38-126) U/L Troponin I (0.000-0.034) ng/mL Total Protein (6.3-8.2) g/dL Albumin (3.5-5.0) g/dL 07/24/23 07/25/23 07/25/23 Range/Units 23:41 03:17 03:17 WBC 16.2 H (3.8-10.6) k/uL RBC 2.46 L (4.30-5.90) m/uL Hgb 7.4 L (13.0-17.5) gm/dL Hct 23.5 L (39.0-53.0) % RDW 15.7 H (11.5-15.5) % Plt Count 136 L (150-450) k/uL Neutrophils # 14.5 H (1.3-7.7) k/uL Lymphocytes # 0.8 L (1.0-4.8) k/uL ABG pH (7.35-7.45) ABG pCO2 (35-45) mmHg ABG pO2 (83-108) mmHg ABG HCO3 (21-25) mmol/L Sodium 126 L (137-145) mmol/L Potassium (3.5-5.1) mmol/L Carbon Dioxide 15 L (22-30) mmol/L BUN 46 H (9-20) mg/dL Creatinine 2.35 H (0.66-1.25) mg/dL Glucose 279 H (74-99) mg/dL POC Glucose (mg/dL) 278 H (70-110) mg/dL Calcium 7.2 L (8.4-10.2) mg/dL Phosphorus 5.4 H (2.5-4.5) mg/dL AST 145 H (17-59) U/L ALT 65 H (4-49) U/L Alkaline Phosphatase 527 H (38-126) U/L Troponin I (0.000-0.034) ng/mL Total Protein 4.3 L (6.3-8.2) g/dL Albumin 1.9 L (3.5-5.0) g/dL 07/25/23 07/25/23 07/25/23 Range/Units 04:02 05:05 08:18 WBC (3.8-10.6) k/uL RBC (4.30-5.90) m/uL Hgb (13.0-17.5) gm/dL Hct (39.0-53.0) % RDW (11.5-15.5) % Plt Count (150-450) k/uL Neutrophils # (1.3-7.7) k/uL Lymphocytes # (1.0-4.8) k/uL ABG pH 7.33 L (7.35-7.45) ABG pCO2 33 L (35-45) mmHg ABG pO2 75 L (83-108) mmHg ABG HCO3 18 L (21-25) mmol/L Sodium (137-145) mmol/L Potassium (3.5-5.1) mmol/L Carbon Dioxide (22-30) mmol/L BUN (9-20) mg/dL Creatinine (0.66-1.25) mg/dL Glucose (74-99) mg/dL POC Glucose (mg/dL) 307 H 239 H (70-110) mg/dL Calcium (8.4-10.2) mg/dL Phosphorus (2.5-4.5) mg/dL AST (17-59) U/L ALT (4-49) U/L Alkaline Phosphatase (38-126) U/L Troponin I (0.000-0.034) ng/mL Total Protein (6.3-8.2) g/dL Albumin (3.5-5.0) g/dL 07/25/23 07/25/23 Range/Units 11:16 11:16 WBC (3.8-10.6) k/uL RBC (4.30-5.90) m/uL Hgb (13.0-17.5) gm/dL Hct (39.0-53.0) % RDW (11.5-15.5) % Plt Count (150-450) k/uL Neutrophils # (1.3-7.7) k/uL Lymphocytes # (1.0-4.8) k/uL ABG pH (7.35-7.45) ABG pCO2 (35-45) mmHg ABG pO2 (83-108) mmHg ABG HCO3 (21-25) mmol/L Sodium (137-145) mmol/L Potassium (3.5-5.1) mmol/L Carbon Dioxide (22-30) mmol/L BUN (9-20) mg/dL Creatinine (0.66-1.25) mg/dL Glucose (74-99) mg/dL POC Glucose (mg/dL) 157 H (70-110) mg/dL Calcium (8.4-10.2) mg/dL Phosphorus (2.5-4.5) mg/dL AST (17-59) U/L ALT (4-49) U/L Alkaline Phosphatase (38-126) U/L Troponin I 1.020 H* (0.000-0.034) ng/mL Total Protein (6.3-8.2) g/dL Albumin (3.5-5.0) g/dL Microbiology - Last 24 Hours (Table) 07/22/23 11:55 Gram Stain - Final Sputum Sputum Culture - Final 07/22/23 10:45 Blood Culture - Preliminary Blood 07/22/23 08:15 Blood Culture - Preliminary Blood Assessment and Plan (1) Liver lesion Current Visit: Yes Status: Acute Priority: High Code(s): K76.9 - LIVER DISEASE, UNSPECIFIED SNOMED Code(s): 713638137 (2) Lung nodule, multiple Current Visit: Yes Status: Acute Priority: High Code(s): R91.8 - OTHER NONSPECIFIC ABNORMAL FINDING OF LUNG FIELD SNOMED Code(s): 625569164 Plan: PEA arrest -Developed bradycardia while being transition from BiPAP earlier this morning -Underwent 2 rounds of CPR with epinephrine given and ROSC achieved -Blood glucose was low at this time, measuring 25 -Remains intubated and on pressors -Management per primary and ICU teams Lung and liver lesions -Seen on imaging recently at [facility]. Plans were for follow- up PET CT scan and referral for biopsy -Bilirubin currently normal though urine is very dark. LFTs elevated. Abd US Reporting the liver is heterogenous questioning mets versus transplant surgical changes. Postoperative dilation of the common bile duct was reported as well -Consult placed for Interventional Radiology to review the case and see if liver biopsy is possible. Did note that the patient is a liver transplant -Liver biopsy had been planned for 07/25/2023 due to prior aspirin use, however this will be delayed given his current course in the ICU. -CT abdomen and pelvis without contrast on 07/24/2023 revealed proximal small bowel loops are prominent. Mid and distal small bowel loops are decompressed. Mild partial small bowel obstruction or ileus is possible. Extensive metastasis to the liver. Ascites within the pelvis. Loculated density within the right dependent lung base -Liver doctor at [facility] [place] Dr. Lemus phone [phone] Low back pain, complicated by acute metabolic encephalopathy -Patient was placed on fentanyl and [place] on discharge from [facility]. Patient feels he has some control over his pain but, he is using IV pain medications rather frequently in the ER -Had increased confusion with Dilaudid over the evening of 07/20/2023 -This improved with Narcan on 07/21/2023 -Transdermal fentanyl increased to 75 mcg on 07/21/2023 -This can be maintained for now and likely did not contribute to his acute episode of bradycardia
--- NOTE | 2023-07-25 13:26 | P.PN ---
Subjective Progress Note Date: 07/25/23 72-year-old black male, who [facility], is seen in the emergency department, on July 18, for shortness of breath. The patient apparently has been having shortness of breath, since being discharged from [facility]. Recently, the patient was started on a fentanyl patch for back pain, but denies all other medications. He apparently was admitted at the other hospital, for total of 4 days according to his , and was found to have some lesions on his liver and lung. The patient is apparently awaiting an outpatient PET scan. He did see one of the cancer doctors at the other facility. Currently, the patient is seen in ER room 28. The patient is currently on BiPAP, with settings of 12/6 and 28%. According to his he has a history of liver and kidney transplantation. He is getting saline at 75 cc an hour. He apparently had a chest x-ray that was interpreted as normal, and a VQ scan that was interpreted as being very low probability for pulmonary embolism. He does not use oxygen at home. He quit smoking 43 years ago. He had a blood gas showing a pO2 of 124, pCO2 of 35, and a pH of 7.30. This is consistent with metabolic acidosis. 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 The patient is a former smoker, having quit some 43 years ago as mentioned above. Current labs include a white count of 16.2, hemoglobin 8.4, hematocrit 27.6, and a platelet count of 268,000. Sodium 126, potassium 5.2, chlorides 102, CO2 18, BUN 35, and creatinine 1.63. Calcium is 8.5. Glucose is 161. The patient has a nonanion gap metabolic acidosis, likely from his renal insufficiency/failure. The patient has a couple different chest x- rays, which did not show acute cardiopulmonary disease. Progress note dated July 22, 2023. The patient was seen yesterday in consultation, when he was in the emergency department. The patient was admitted to the floor. Sometime early this morning, the patient developed bradycardia, and pulseless electrical activity. At that time, the patient's blood glucose was only 25. The patient was intubated, for respiratory failure, transferred to the intensive care unit. He is currently in the ICU, on the ventilator. Settings include volume assist- control, rate 20, tidal volume 450, FiO2 50%, PEEP of 5. Blood gases show pO2 of 243, pCO2 42, and a pH of 7.25. The patient is getting dextrose with half- normal saline at 75 cc an hour, propofol at 50 mcg/kg/min. He remains on Levaquin. His procalcitonin level was elevated at 4.10. Current labs include a white count 19.4, hemoglobin 8.2, hematocrit 27.3, and a platelet count of 2 62,000. Sodium 131, potassium 5.2, chlorides 104, CO2 17, anion gap 10, BUN 31, and creatinine 1.46. Glucose is 120. AST is 138. ALT is 87. Alkaline phosphatase is 620. Procalcitonin level was 4.10. He tested negative for influenza, RSV, and coronavirus. Chest x-ray shows the tip of the central venous catheter, at the junction of the superior vena cava and right atrium. Chest x-ray also suggest some pulmonary vascular congestion. Progress note dated July 23, 2023. 72-year-old black male, seen in follow-up, room 259. The patient remains on the mechanical ventilator. Current vent settings include volume assist-control, rate 20, tidal volume 450, FiO2 50%. PEEP of 5. Blood gases show pO2 176, pCO2 33, pH is 7.31. The patient is getting saline at 75 cc an hour, propofol at 40 mcg/kg/min. Currently, norepinephrine is on hold. He is getting vital AF at 30, with a goal of 42. He continues on cefepime. We did attempt a daily interruption of sedation, but he did poorly and, we could not do a spontaneous breathing trial. He was placed back on the ventilator. Current labs include a white count of 13.1, hemoglobin 7.9, hematocrit 25.4, and a normal platelet count. Sodium 127, potassium 5, chlorides 106, CO2 15, BUN 32, creatinine 1.32. Glucose is 185. Calcium is 8. Chest x-ray shows a properly positioned endotracheal tube. In addition, there may be an infiltrate in the right lung, with volume loss in the right lung, and a small right-sided pleural effusion. On today's evaluation of 07/24/2023, the patient is being seen for a follow-up. Patient cardiac arrest and the patient remains intubated on mechanical ventilator. Noted the patient was intubated on 07/22/2023 following cardiac arrest that followed an episode of bradycardia followed by pulseless electrical activity. During that time, the patient was also hypoglycemic. Noted the patient is a very complicated history of liver and kidney transplant and the patient has undergone his transportation back in 2016 at [facility]. The patient has been maintained on immunosuppressive agents with a combination of CellCept and Prograf and low-dose prednisone on an outpatient basis. Note that the CellCept is currently on hold and the patient remains on a combination of Prograf and low-dose prednisone. On a separate note, a CAT scan of the chest that was done also on this patient at [facility] showed extensive bilateral pulmonary nodules which raise the possibility of underlying metastatic disease/infection/post transplant lymphoproliferative disorder. If final diagnosis not been made at this point in time. In fact, the patient is currently on a mechanical ventilator, and is afebrile. He is on assist-control mode of mechanical ventilation at rate of 20, tidal volume of 450, FiO2 is at 40% with a PEEP of 5. The blood gas showing a pH of 7.3 with a pCO2 of 30 and pO2 of 146. Peak airway pressure is around 15. IV fluids are currently at KVO. The patient is currently on vital AF at rate of 42 to cc an hour for enteral feeding and nutritional support. He is currently on no pressors. The WBC count of 15.2 with a hemoglobin of 7.7 and a platelet count of 165. The serum bicarb is at 12 with a sodium level of 126 and a potassium level of 5.2. BUN is at 42 with a creatinine of 1.8. LFTs remain abnormal with an AST of 58, ALT of 52 and an alkaline phosphatase of 596. Serum protein is at 2.0. The blood cultures are still pending, sputum culture also pending. The patient is currently hemodynamically stable on no pressors. He is known to have hypertension hyperlipidemia and diabetes mellitus type 2 and history of gout. Has echocardiogram that was done on 07/20/2023 showed preserved LV function without any significant valvular abnormalities and mild pulmonary hypertension was also seen. CAT scan of the brain done postarrest showed no acute intracranial process. Ultrasound of the abdomen and the bladder showed heterogeneous liver lesions the significance of which was not known. Possibility of hepatic metastasis cannot be completely ruled out. Postoperative dilatation of the common bile duct was seen and the transplanted kidney was noted. The patient's original kidneys are quite atrophic at this point in time. His procalcitonin level was 4.0 at the time of admission. On today's evaluation of 07/25/2023, the patient is being seen for a follow-up. Patient remains sedated on propofol which is running at 30 mcg/kg/min. Events from yesterday evening was noted. The patient had high degree AV block and she had Mobitz type II and episodes of third-degree AV block. Based on that, cardiology has been involved and the patient was started on dopamine at 5 mcg/kg/min. His current rhythm is sinus bradycardia. Note that the patient's echocardiogram showed a preserved LV function. Troponins will be rechecked and locker operator on the case for now. He remains intubated on mechanical ventilator. He is calm and comfortable. He is on assist-control mode at rate of 20, tidal volume of 450, FiO2 of 40% with a PEEP of 5. Blood gas showed a pH of 7.33 with a pCO2 of 33 and pO2 of 75. The chest x-ray from today shows no significant interval change and some atelectasis and small effusion in the right lung base. Orotracheal tube remains in a good location. CAT scan of the abdomen and pelvis was also done yesterday and it showed mid to distal small bowel loops being compressed. Mild partial small bowel obstruction/ileus cannot be completely excluded. The patient has extensive metastases to his liver along with ascites within the pelvis. There is also a loculated pleural effusion in the right lung base. Empyema is felt to be less likely at this point in time based on the clinical presentation. The patient is currently has a white cell count of 16.2 with a hemoglobin 7.4 and a platelet count of 136. The sodium is at 126, potassium is at 4.9 and serum bicarb is at 15 with a BUN of 46 and a creatinine of 2.35. LFTs show an AST of 145, ALT of 65, alkaline phosphatase of 527, and total protein of 4.3 with an albumin of 1.9. The Prograf level was 14.7. Nephrology on the case. Cardiology has also been consulted regarding the high degree AV block. Meanwhile, the patient is taking enteral feeding for nu tritional support and the patient is on vital AF At the rate of 44 cc an hour. Objective - Vital Signs Vital signs: Vital Signs Temp 97.6 F 07/25/23 08:00 Pulse 52 L 07/25/23 09:11 Resp 20 07/25/23 08:00 BP 91/57 07/25/23 08:00 Pulse Ox 98 07/25/23 08:00 FiO2 40 07/25/23 09:06 Intake & Output 07/24/23 07/25/23 07/25/23 18:59 06:59 18:59 Intake Total 1786.599 4717.968 450.414 Output Total 45 70 15 Balance 8784.537 7137.968 435.414 Weight 88.9 kg 88.6 kg Intake: IV 223 1356 226 0.9 190 120 20 Cefepime 2 gm In Sodium 100 Chloride 0.9% 100 ml @ 25 mls/hr IVPB Q12HR MARCEL Rx #:[id number] Dextrose 5% in Water 1, 1100 200 000 ml @ 100 mls/hr IV . [id number] MARCEL with Sodium Bicarb (1 Meq/ml) 150 ml Rx#:[id number] pressure bag 33 36 6 Intake, IV Titration 832.134 266.968 136.414 Amount Cefepime 2 gm In Sodium 100 Chloride 0.9% 100 ml @ 25 mls/hr IVPB Q12HR MARCEL Rx #:[id number] Dextrose 5% in Water 1, 500 000 ml @ 100 mls/hr IV . [id number] MARCEL with Sodium Bicarb (1 Meq/ml) 150 ml Rx#:[id number] Sodium Chloride 0.45% 1, 100 100 000 ml @ 100 mls/hr IV . [id number] MARCEL with Sodium Bicarb (1 Meq/ml) 150 ml Rx#:[id number] propofoL 1,000 mg In 232.134 166.968 36.414 Empty Bag 1 bag @ 15 MCG/ KG/MIN 7.267 mls/hr IV . [id number] MRACEL Rx#:[id number] Tube Feeding 484 88 Other 90 Output: Urine 45 70 15 Other: Voiding Method Indwelling Catheter Indwelling Catheter Indwelling Catheter # Bowel Movements 1 ABP, PAP, CO, CI - Last Documented Arterial Blood Pressure 101/38 - Exam No acute distress, intubated, and sedated. The patient is calm and comfortable and the patient is currently sedated on propofol. The orotracheal and orogastric tube are both in place. Head exam was generally normal. There was no scleral icterus or corneal arcus. Mucous membranes were moist. HEENT examination is grossly unremarkable. Neck supple. Full range of motion. No adenopathy thyromegaly or neck vein distention. Cardiovascular examination reveals regular rhythm rate. S1-S2 normal. No S3 or S4. No discernible murmur noted. Heart sounds are distant. Lungs reveal clear breath sounds. Breath sounds are equal bilaterally. No adventitious lung sounds including wheezes rhonchi or crackles. Abdomen soft bowel sounds are heard. No masses or tenderness. Extremities are intact. No cyanosis clubbing or edema. Skin is without rash or lesion. Neurologic examination cannot be assessed at this time. Patient is sedated and is calm and comfortable, withdraws to painful stimulation. - Labs CBC & Chem 7: 07/25/23 03:17 07/25/23 03:17 Labs: Abnormal Lab Results - Last 24 Hours (Table) 07/22/23 07/24/23 07/24/23 Range/Units 06:27 10:28 12:17 WBC (3.8-10.6) k/uL RBC (4.30-5.90) m/uL Hgb (13.0-17.5) gm/dL Hct (39.0-53.0) % RDW (11.5-15.5) % Plt Count (150-450) k/uL Neutrophils # (1.3-7.7) k/uL Lymphocytes # (1.0-4.8) k/uL ABG pH (7.35-7.45) ABG pCO2 (35-45) mmHg ABG pO2 (83-108) mmHg ABG HCO3 (21-25) mmol/L Sodium (137-145) mmol/L Potassium (3.5-5.1) mmol/L Carbon Dioxide (22-30) mmol/L BUN (9-20) mg/dL Creatinine (0.66-1.25) mg/dL Glucose (74-99) mg/dL POC Glucose (mg/dL) 259 H 264 H (70-110) mg/dL Calcium (8.4-10.2) mg/dL Phosphorus (2.5-4.5) mg/dL AST (17-59) U/L ALT (4-49) U/L Alkaline Phosphatase (38-126) U/L Total Protein (6.3-8.2) g/dL Albumin (3.5-5.0) g/dL Tacrolimus 22.7 H (5.0-20.0) ng/mL 07/24/23 07/24/23 07/24/23 Range/Units 17:08 17:18 19:40 WBC (3.8-10.6) k/uL RBC (4.30-5.90) m/uL Hgb (13.0-17.5) gm/dL Hct (39.0-53.0) % RDW (11.5-15.5) % Plt Count (150-450) k/uL Neutrophils # (1.3-7.7) k/uL Lymphocytes # (1.0-4.8) k/uL ABG pH (7.35-7.45) ABG pCO2 (35-45) mmHg ABG pO2 (83-108) mmHg ABG HCO3 (21-25) mmol/L Sodium 126 L (137-145) mmol/L Potassium 5.3 H (3.5-5.1) mmol/L Carbon Dioxide 13 L (22-30) mmol/L BUN 44 H (9-20) mg/dL Creatinine 2.15 H (0.66-1.25) mg/dL Glucose 306 H (74-99) mg/dL POC Glucose (mg/dL) 341 H 372 H (70-110) mg/dL Calcium 7.5 L (8.4-10.2) mg/dL Phosphorus (2.5-4.5) mg/dL AST (17-59) U/L ALT (4-49) U/L Alkaline Phosphatase (38-126) U/L Total Protein (6.3-8.2) g/dL Albumin (3.5-5.0) g/dL Tacrolimus (5.0-20.0) ng/mL 07/24/23 07/25/23 07/25/23 Range/Units 23:41 03:17 03:17 WBC 16.2 H (3.8-10.6) k/uL RBC 2.46 L (4.30-5.90) m/uL Hgb 7.4 L (13.0-17.5) gm/dL Hct 23.5 L (39.0-53.0) % RDW 15.7 H (11.5-15.5) % Plt Count 136 L (150-450) k/uL Neutrophils # 14.5 H (1.3-7.7) k/uL Lymphocytes # 0.8 L (1.0-4.8) k/uL ABG pH (7.35-7.45) ABG pCO2 (35-45) mmHg ABG pO2 (83-108) mmHg ABG HCO3 (21-25) mmol/L Sodium 126 L (137-145) mmol/L Potassium (3.5-5.1) mmol/L Carbon Dioxide 15 L (22-30) mmol/L BUN 46 H (9-20) mg/dL Creatinine 2.35 H (0.66-1.25) mg/dL Glucose 279 H (74-99) mg/dL POC Glucose (mg/dL) 278 H (70-110) mg/dL Calcium 7.2 L (8.4-10.2) mg/dL Phosphorus 5.4 H (2.5-4.5) mg/dL AST 145 H (17-59) U/L ALT 65 H (4-49) U/L Alkaline Phosphatase 527 H (38-126) U/L Total Protein 4.3 L (6.3-8.2) g/dL Albumin 1.9 L (3.5-5.0) g/dL Tacrolimus (5.0-20.0) ng/mL 07/25/23 07/25/23 07/25/23 Range/Units 04:02 05:05 08:18 WBC (3.8-10.6) k/uL RBC (4.30-5.90) m/uL Hgb (13.0-17.5) gm/dL Hct (39.0-53.0) % RDW (11.5-15.5) % Plt Count (150-450) k/uL Neutrophils # (1.3-7.7) k/uL Lymphocytes # (1.0-4.8) k/uL ABG pH 7.33 L (7.35-7.45) ABG pCO2 33 L (35-45) mmHg ABG pO2 75 L (83-108) mmHg ABG HCO3 18 L (21-25) mmol/L Sodium (137-145) mmol/L Potassium (3.5-5.1) mmol/L Carbon Dioxide (22-30) mmol/L BUN (9-20) mg/dL Creatinine (0.66-1.25) mg/dL Glucose (74-99) mg/dL POC Glucose (mg/dL) 307 H 239 H (70-110) mg/dL Calcium (8.4-10.2) mg/dL Phosphorus (2.5-4.5) mg/dL AST (17-59) U/L ALT (4-49) U/L Alkaline Phosphatase (38-126) U/L Total Protein (6.3-8.2) g/dL Albumin (3.5-5.0) g/dL Tacrolimus (5.0-20.0) ng/mL Microbiology - Last 24 Hours (Table) 07/22/23 11:55 Gram Stain - Final Sputum Sputum Culture - Final 07/22/23 10:45 Blood Culture - Preliminary Blood 07/22/23 08:15 Blood Culture - Preliminary Blood Assessment and Plan Plan: Acute cardiac arrest with a normal echocardiogram and no ongoing cardiac arrhythmias. The patient had a episode of bradycardia followed by PEA. During the same time, the patient was hypoglycemic. This could have been a acute hypoglycemic event. Currently debated on mechanical ventilator and the patient is currently hemodynamically stable. The patient remains on mechanical ventilator, sedated for now. The patient will be given a sedation holiday and underlying mental status is to be assessed. Acute hypoxic respiratory failure postcardiac arrest and the patient is requiring intubation mechanical ventilation, there is improvement in the acid- base. Blood gases showing some ongoing mild component of metabolic acidosis. Shortness of breath under investigation. CAT scan of the chest that was done in outside hospital showed multiple bilateral pulmonary nodules/micronodules and obviously differential diagnosis regarding this abnormality is quite extensive specially with his underlying immunosuppressive state. Possibilities include malignancy including possibility of posttransplant or immunosuppression related lymphomas. Other possibilities include infections including possibility of opportunistic infections. Currently afebrile. Hemodynamically stable. The presentation is more typical of a malignancy specially the patient's CAT scan of the abdomen has shown extensive hepatic metastases. High degree AV block, with a present LV function and the patient is currently on dopamine at 5 mcg/kg/min. Current cardiac rhythm is sinus bradycardia. History of kidney/liver transplantation, September 2015, at [facility]. Patient has been maintained on a combination of Prograf, CellCept and prednisone Chronic kidney disease, posttransplantation, creatinine is stable for now. Right lower lobe pleural effusion Questionable small bowel obstruction, partial versus ileus, tolerating enteral feeding for now. Chronic elevation of the alkaline phosphatase and a component of transaminitis which is essentially improving at this point in time. Recent evaluation at [facility], which revealed nodules on his liver and lung, rule out PTLD. History of hypertension. History of hyperlipidemia. History of gastroesophageal reflux disease. History of diabetes. History of gout. Previous history of tobacco use. Enteral feeding for nutritional support Hyponatremia, sodium levels at 126 and is being monitored closely. Plan: Give the patient sedation holiday and assess mental status discussed fluid management with nephrology. The patient was placed on Half- normal saline with 2 A of sodium bicarb and the patient will be given additional 100 mEq of sodium bicarb IV push. Will obtain a blood gas in few hours time. reviewed the CAT scan of the chest that was done with [facility].Presentation is less likely related to fungal or opportunistic infection. Suspect metastatic disease. A biopsy of the liver may be of value to narrow down the possibilities. Infectious workup is still in progress. Change the patient to a bicarb infusion to be done at 100 and cc an hour Continue Prograf Monitor renal function Will switch this patient to stress dose hydrocortisone 50 mg every 8 hours and start the prednisone for now Continue enteral feeding for nutritional support Condition is critical. Condition is critical and will coordinate care with infectious disease and nephrology. Continue Lovenox for DVT prophylaxis Continue IV cefepime Condition is critical we will continue to follow make further recommendations based on the progress. This evaluation was done more than 40 minutes. Time with Patient: Greater than 30
--- NOTE | 2023-07-25 13:58 | P.PN ---
Subjective Progress Note Date: 07/25/23 Patient is a 59-year-old male with BPH, carotid stenosis, cirrhosis, diabetes, end-stage renal disease status post renal and liver transplant no longer requiring hemodialysis, glaucoma, hypertension, and multiple other comorbid conditions who presented to the emergency department with complaints of shortness of breath. Patient had recently been at an outside hospital for abdominal and back pain they are workup revealed lesions in his liver, kidney, and lung and he was requiring Dilaudid [id number] for pain. He was discharged on a fentanyl patch with a PET scan scheduled for July with Dr. Wise. In the emergency department here he was noted to have a white blood cell count of 16, sodium 124, BUN 30, creatinine 1.76 (baseline creatinine 2), AST 241, ALT 153, alkaline phosphatase 669, and a D-dimer of 18.53. Patient was admitted with concerns for possible pulmonary embolism and he was started on Lovenox. He subsequently underwent a ventilation/perfusion scan which demonstra mynor low probability for pulmonary embolism. He underwent echocardiogram which demonstrated ejection fraction of 55 to 60% with mild aortic stenosis. Renal and bladder ultrasound demonstrated hepatic metastatic disease with transplanted kidneys and atrophic andreafski kidneys. Oncology was consulted. They recommended continuing pain control considering additional imaging and IR consultation. Patient was noted to have change in mentation and therefore underwent a CT of the head which demonstrated no acute intracranial process. He then became hypoxic requiring high flow nasal cannula and ultimately BiPAP. Pulmonary was consulted and added bronchodilators. On the morning of 07/21 patient was undergoing a BiPAP weaning trial when he lost pulses and CPR was initiated. He had ROSC after 2 rounds of epinephrine however his mental status did not improve and he was subsequently intubated and transferred to the ICU. He required norepinephrine for less than 24 hours. Infectious disease was consulted he recommended adding cefepime while awaiting cultures to finalize. Nephrology was consulted who recommended holding CellCept and continuing tacrolimus and prednisone. Patient becaem bradycardiac overnight on 07/24 and cardio was consulted and the patient was started tayler dobutamined gtt. Patient seen and examined at bedside. He remains sedated on vent Vital signs reviewed General: Nontoxic, no distress, appears at stated age Cardiovascular: S1S2 reg, no murmur, 1+ edema b/l LE Lungs: Course bilateral, no rhonchi, no rales, no accessory muscle use Abdominal: Soft, nontender to palpation, no guarding Ext: No gross muscle atrophy, no edema b/l lower extremities, no contractures Neuro: sedated on vent Psych: Sedated on vent Assessment/Plan: S/P Cardiac arrest Multiple lung and liver nodules, probable malignancy Intractable pain likely related to malignancy Acute hypoxic respiratory failure Transaminitis suspect secondary to liver lesions versus hepatitis C -Shock, probable sepsis. -Oncology note reviewed: No new recommendations. Case was discussed verbally with oncology and plan only for biopsy if patient is able to come off the vent -ID following, Continue with cefepime -Await further critical care recs -Cefepime 2 g IV piggyback twice daily D # 4 - Solucortef 50 mg IVP q 8 hours -Hold Lipitor due to elevated liver enzymes -Fentanyl 75 mcg patch has been continued. Will need to monitor in case this needs to be removed to help with mentation for extubation. Will leave in place now due to patient's history of uncontrolled pain -DuoNebs every 4 hours and as needed Episodes of complete heart block with unclear etiology - Off coreg -Cardiology consultation reviewed: Repeat limited echo to see if there is a change in systolic function, continue IV dopamine, serial enzymes. Chronic kidney disease stage III status post renal and liver transplant Hyponatremia, possible SIADH Metabolic acidosis -Nephrology note reviewed: Continue dopamine, hold tacro, change D5 to half- normal at 2 A of bicarb -Half-normal saline with tubes of bicarb at 100 cc/h -Continue with tacrolimus and cellcept on hold, prednisone 2 mg daily -Continue to follow renal function Normocytic anemia -Follow CBC -No indication for transfusion at this time Diabetes mellitus type 2 with episodes of hypoglycemia - NovoLog 2 units every 6 hours in addition to sliding scale every 6 hours -Off of dextrose containing solution, decrease levemir to 13 untis once daily -Follow blood sugars Chronic conditions BPH Carotid stenosis Hepatitis C Hypertension Dyslipidemia Osteoarthritis Vitamin D deficiency Pulmonary embolism ruled out Imaging: CT abdomen pelvis: Proximal small bowel loops, extensive metastasis to the liver, loculated density in the right dependent lung possible empyema. Chest x-ray: Mild atelectasis with an elevated right hemidiaphragm Data Review: Labs reviewed from today include CBC and CMP which are remarkable for white blood cell count 16.2, hemoglobin 7.4, platelets 136, sodium 126, carbon dioxide 15, BUN 46, creatinine 2.35, calcium 7.2. Cardiology ordered a troponin which was elevated at 1.020. DVT prophylaxis: Lovenox Anticipated discharge date: Pending Clinical Course Anticipated discharge place: Pending Clinical Course This dictation was prepared using [employer] voice recognition software. Though every attempt is made to correct errors during dictation some may still exist. Objective - Vital Signs Vital signs: Vital Signs Temp 97.6 F 07/25/23 12:00 Pulse 44 L 07/25/23 13:00 Resp 24 07/25/23 13:00 BP 117/80 07/25/23 11:00 Pulse Ox 99 07/25/23 13:00 FiO2 40 07/25/23 11:58 Intake & Output 07/24/23 07/25/23 07/25/23 18:59 06:59 18:59 Intake Total 6923.160 7715.968 1024.905 Output Total 45 70 40 Balance 2828.248 7009.968 984.905 Weight 88.9 kg 88.6 kg Intake: IV 223 1356 791 0.9 190 120 70 Cefepime 2 gm In Sodium 100 Chloride 0.9% 100 ml @ 25 mls/hr IVPB Q12HR [facility] Rx #:[id number] Dextrose 5% in Water 1, 1100 700 000 ml @ 100 mls/hr IV . [id number] [facility] with Sodium Bicarb (1 Meq/ml) 150 ml Rx#:[id number] pressure bag 33 36 21 Intake, IV Titration 832.134 266.968 145.905 Amount Cefepime 2 gm In Sodium 100 Chloride 0.9% 100 ml @ 25 mls/hr IVPB Q12HR [facility] Rx #:[id number] Dextrose 5% in Water 1, 500 000 ml @ 100 mls/hr IV . [id number] [facility] with Sodium Bicarb (1 Meq/ml) 150 ml Rx#:[id number] Sodium Chloride 0.45% 1, 100 100 000 ml @ 100 mls/hr IV . [id number] [facility] with Sodium Bicarb (1 Meq/ml) 150 ml Rx#:[id number] propofoL 1,000 mg In 232.134 166.968 45.905 Empty Bag 1 bag @ 15 MCG/ KG/MIN 7.267 mls/hr IV . [id number] [facility] Rx#:[id number] Tube Feeding 484 88 Other 90 Output: Urine 45 70 40 Other: Voiding Method Indwelling Catheter Indwelling Catheter Indwelling Catheter # Bowel Movements 1 ABP, PAP, CO, CI - Last Documented Arterial Blood Pressure 131/44 - Labs CBC & Chem 7: 07/25/23 03:17 07/25/23 03:17 Labs: Abnormal Lab Results - Last 24 Hours (Table) 07/24/23 07/24/23 07/24/23 Range/Units 17:08 17:18 19:40 WBC (3.8-10.6) k/uL RBC (4.30-5.90) m/uL Hgb (13.0-17.5) gm/dL Hct (39.0-53.0) % RDW (11.5-15.5) % Plt Count (150-450) k/uL Neutrophils # (1.3-7.7) k/uL Lymphocytes # (1.0-4.8) k/uL ABG pH (7.35-7.45) ABG pCO2 (35-45) mmHg ABG pO2 (83-108) mmHg ABG HCO3 (21-25) mmol/L ABG O2 Saturation (94-97) % Sodium 126 L (137-145) mmol/L Potassium 5.3 H (3.5-5.1) mmol/L Carbon Dioxide 13 L (22-30) mmol/L BUN 44 H (9-20) mg/dL Creatinine 2.15 H (0.66-1.25) mg/dL Glucose 306 H (74-99) mg/dL POC Glucose (mg/dL) 341 H 372 H (70-110) mg/dL Calcium 7.5 L (8.4-10.2) mg/dL Phosphorus (2.5-4.5) mg/dL AST (17-59) U/L ALT (4-49) U/L Alkaline Phosphatase (38-126) U/L Troponin I (0.000-0.034) ng/mL Total Protein (6.3-8.2) g/dL Albumin (3.5-5.0) g/dL 07/24/23 07/25/23 07/25/23 Range/Units 23:41 03:17 03:17 WBC 16.2 H (3.8-10.6) k/uL RBC 2.46 L (4.30-5.90) m/uL Hgb 7.4 L (13.0-17.5) gm/dL Hct 23.5 L (39.0-53.0) % RDW 15.7 H (11.5-15.5) % Plt Count 136 L (150-450) k/uL Neutrophils # 14.5 H (1.3-7.7) k/uL Lymphocytes # 0.8 L (1.0-4.8) k/uL ABG pH (7.35-7.45) ABG pCO2 (35-45) mmHg ABG pO2 (83-108) mmHg ABG HCO3 (21-25) mmol/L ABG O2 Saturation (94-97) % Sodium 126 L (137-145) mmol/L Potassium (3.5-5.1) mmol/L Carbon Dioxide 15 L (22-30) mmol/L BUN 46 H (9-20) mg/dL Creatinine 2.35 H (0.66-1.25) mg/dL Glucose 279 H (74-99) mg/dL POC Glucose (mg/dL) 278 H (70-110) mg/dL Calcium 7.2 L (8.4-10.2) mg/dL Phosphorus 5.4 H (2.5-4.5) mg/dL AST 145 H (17-59) U/L ALT 65 H (4-49) U/L Alkaline Phosphatase 527 H (38-126) U/L Troponin I (0.000-0.034) ng/mL Total Protein 4.3 L (6.3-8.2) g/dL Albumin 1.9 L (3.5-5.0) g/dL 07/25/23 07/25/23 07/25/23 Range/Units 04:02 05:05 08:18 WBC (3.8-10.6) k/uL RBC (4.30-5.90) m/uL Hgb (13.0-17.5) gm/dL Hct (39.0-53.0) % RDW (11.5-15.5) % Plt Count (150-450) k/uL Neutrophils # (1.3-7.7) k/uL Lymphocytes # (1.0-4.8) k/uL ABG pH 7.33 L (7.35-7.45) ABG pCO2 33 L (35-45) mmHg ABG pO2 75 L (83-108) mmHg ABG HCO3 18 L (21-25) mmol/L ABG O2 Saturation (94-97) % Sodium (137-145) mmol/L Potassium (3.5-5.1) mmol/L Carbon Dioxide (22-30) mmol/L BUN (9-20) mg/dL Creatinine (0.66-1.25) mg/dL Glucose (74-99) mg/dL POC Glucose (mg/dL) 307 H 239 H (70-110) mg/dL Calcium (8.4-10.2) mg/dL Phosphorus (2.5-4.5) mg/dL AST (17-59) U/L ALT (4-49) U/L Alkaline Phosphatase (38-126) U/L Troponin I (0.000-0.034) ng/mL Total Protein (6.3-8.2) g/dL Albumin (3.5-5.0) g/dL 07/25/23 07/25/23 07/25/23 Range/Units 11:16 11:16 12:56 WBC (3.8-10.6) k/uL RBC (4.30-5.90) m/uL Hgb (13.0-17.5) gm/dL Hct (39.0-53.0) % RDW (11.5-15.5) % Plt Count (150-450) k/uL Neutrophils # (1.3-7.7) k/uL Lymphocytes # (1.0-4.8) k/uL ABG pH (7.35-7.45) ABG pCO2 (35-45) mmHg ABG pO2 (83-108) mmHg ABG HCO3 (21-25) mmol/L ABG O2 Saturation 97.9 H (94-97) % Sodium (137-145) mmol/L Potassium (3.5-5.1) mmol/L Carbon Dioxide (22-30) mmol/L BUN (9-20) mg/dL Creatinine (0.66-1.25) mg/dL Glucose (74-99) mg/dL POC Glucose (mg/dL) 157 H (70-110) mg/dL Calcium (8.4-10.2) mg/dL Phosphorus (2.5-4.5) mg/dL AST (17-59) U/L ALT (4-49) U/L Alkaline Phosphatase (38-126) U/L Troponin I 1.020 H* (0.000-0.034) ng/mL Total Protein (6.3-8.2) g/dL Albumin (3.5-5.0) g/dL Microbiology - Last 24 Hours (Table) 07/22/23 11:55 Gram Stain - Final Sputum Sputum Culture - Final 07/22/23 10:45 Blood Culture - Preliminary Blood 07/22/23 08:15 Blood Culture - Preliminary Blood
[2023-07-25] MEDS: fentaNYL (PF) 50 MCG/ML 2 ML AMP IVP PRN (16:25)
[2023-07-25 17:33] LABS: Glucose,Whole Blood 196 mg/dL (70-110)
[2023-07-25] MEDS: HYDROCORTISONE SUCCINATE 100 MG/2 ML VIAL IV SCH (17:36)
[2023-07-25] MEDS: ASPIRIN 81 MG PO SCH (17:47)
[2023-07-25 20:11] LABS: Glucose,Whole Blood 146 mg/dL (70-110)
[2023-07-26 00:20] LABS: Glucose,Whole Blood 241 mg/dL (70-110)
[2023-07-26 04:36] LABS: Glucose,Whole Blood 275 mg/dL (70-110)
[2023-07-26 04:48] LABS: ABG Base Excess -2.8 mmol/L; ABG HCO3 22 mmol/L (21-25); ABG Oxygen Saturation 96.9 % (94-97); ABG PCO2 39 mmHg (35-45); ABG PH 7.37 (7.35-7.45); ABG PO2 86 mmHg (83-108); ABG TCO2 24 mmol/L (19-24); Allen Test Performed? Yes
[2023-07-26 04:51] LABS: HGB 7.1 gm/dL (13.0-17.5); Hypochromasia Slight; MCH 28.9 pg (25.0-35.0); MCV 93.1 fL (80.0-100.0); Mean Platelet Volume 9.2; Platelet Count 152 k/uL (150-450); RBC 2.47 m/uL (4.30-5.90); RDW 15.5 % (11.5-15.5); WBC 24.5 k/uL (3.8-10.6)
[2023-07-26 05:10] LABS: INR 1.2 (<1.2); Partial Thromboplastin Time 25.1 sec (22.0-30.0); Prothrombin Time 12.7 sec (10.0-12.5)
[2023-07-26 05:20] LABS: African American GFR (CKD) 25 (>60 ml/min/1.73 sqM); Anion Gap 9 mmol/L; Blood Urea Nitrogen 62 mg/dL (9-20); Carbon Dioxide 21 mmol/L (22-30); Chloride 96 mmol/L (98-107); Glucose 245 mg/dL (74-99); Non-African American GFR(CKD) 21 (>60 ml/min/1.73 sqM); Sodium 126 mmol/L (137-145)
[2023-07-26 05:24] LABS: Potassium 6.1 mmol/L (3.5-5.1)
[2023-07-26] MEDS: ALBUTEROL NEB (CONC) 2.5 MG/0.5 ML INHALATION ONE (05:45)
[2023-07-26] MEDS: CALCIUM GLUCONATE IN NACL 2 GM in SALINE 1 100ML.BAG IVPB ONE (05:47)
[2023-07-26] MEDS: DEXTROSE 50% SYRINGE 50 ML IVP ONE (05:50)
[2023-07-26] MEDS: INSULIN REGULAR 100 UNIT/ML VIAL (IV) IV ONE (05:50)
[2023-07-26] MEDS: SODIUM ZIRCONIUM CYCLOSILICATE 10 GM PACKET PO ONE (05:52)
[2023-07-26] MEDS: INSULIN DETEMIR (LEVEMIR) 100 UNIT/ML SYR SQ SCH ×2 (07:00→09:47)
--- NOTE | 2023-07-26 07:10 | CA ---
Transthoracic Echo Report Name: Carlton Cox Age: 72 Gender: M : 1950 Exam Date: 07/25/2023 14:40 Exam Location: [facility] Ht (in): 70 Wt (lb): 195 Ordering Physician: Latasha Beebe MD ([id number]) Attending/Referring Phys: Anthropology Department Chair Luana Davis, ALEXANDR Procedure CPT: Indications: limited lv function Cardiac Hx: Technical Quality: Fair Contrast 1: Total Dose (mL): Contrast 2: Total Dose (mL): MEASUREMENTS (Male / Female) Normal Values 2D ECHO LV Diastolic Diameter PLAX 5.6 cm 4.2 - 5.9 / 3.9 - 5.3 cm LV Systolic Diameter PLAX 2.9 cm IVS Diastolic Thickness 1.1 cm 0.6 - 1.0 / 0.6 - 0.9 cm LVPW Diastolic Thickness 1.0 cm 0.6 - 1.0 / 0.6 - 0.9 cm LV Relative Wall Thickness 0.4 FINDINGS Left Ventricle Left ventricular ejection fraction is estimated at 65-70 %. Mildly increased septal wall thickness. No obvious regional wall motion abnormalities. Left ventricular cavity size normal. Right Ventricle Normal right ventricular size and function. Right Atrium Normal right atrial size. Left Atrium Mild left atrial dilatation. Mitral Valve Structurally normal mitral valve. No mitral stenosis, regurgitation or prolapse. Aortic Valve Trileaflet aortic valve. Diffuse thickening (sclerosis) of the aortic valve cusps without reduced excursion. No aortic valve stenosis or regurgitation. Tricuspid Valve Structurally normal tricuspid valve. No tricuspid prolapse. No tricuspid stenosis. Trace tricuspid regurgitation. Pulmonic Valve Structurally normal pulmonic valve. No pulmonic stenosis. No pulmonic regurgitation. Pericardium No pericardial effusion. Aorta Aortic root and proximal ascending aorta not well visualized. CONCLUSIONS Normal biventricular dimension and systolic function Aortic sclerosis with no stenosis or regurgitation Poorly visualized aortic root and proximal ascending aorta Previewed by: Dr. Lokesh Calixto MD (Electronically Signed) Final Date: 26 Jul 2023 07:09
--- NOTE | 2023-07-26 07:32 | P.PN ---
Subjective Progress Note Date: 07/26/23 PROGRESS NOTE The patient is a 72-year-old male, status post renal and liver transplant in [place] who presented to the hospital with symptoms of progressive dyspnea, back discomfort, on 21 July he had an episode of bradycardia with pulseless electrical activity requiring mechanical ventilation and CPR. His CAT scan showed bilateral pulmonary nodule and liver nodule raising the possibility of infection versus metastatic disease. Cardiology consultation was requested because of an episode of complete heart block last night. His echocardiogram showed a preserved systolic function with no significant valvular abnormality. According to the records he has a history of hypertension, hyperlipidemia. No history of ischemic heart disease is available in the records. He was initiated on IV dopamine and has episodes of second-degree AV block but no third-degree AV block since. His repeat CT scan done yesterday showed evidence to suggest extensive metastasis to the liver with ascites within the pelvis. On presentation his troponin was normal. July 25: The patient remains intubated and sedated. He remains on IV dopamine and his predominantly in second-degree AV block with no significant pauses. He underwent an echo that showed a preserved systolic function with no significant valvular abnormalities. His troponin were mildly elevated at 1.3. His lab data at this morning revealed potassium of 6.1. He has worsening of his leukocytosis. Medications: Aspirin 81 mg daily, Lovenox subcu, insulin, Protonix, propofol, sodium bicarb, fentanyl patch, IV dopamine at 5 mcg/kg/min PHYSICAL EXAMINATION: Blood pressure 143/40 heart rate 60, intubated and sedated LUNGS: Clear to auscultation HEART: Regular rate and rhythm, S1, S2. No S3. Systolic ejection murmur ABDOMEN: Soft, no organomegaly EXTREMETIES: No edema LAB: Potassium 6.1, BUN 62, creatinine 2.8, sodium 126. WBC 24.5. Hemoglobin 7.1 IMPRESSION: 1. Cardiopulmonary arrest etiology unclear 2. Episodes of third and second-degree AV block with no significant pauses on IV dopamine 3. Status post renal and liver transplant 4. Possible liver metastasis, primary unknown 5. Prior history of hypertension 6. Hyperkalemia 7. Troponin elevation representing type II myocardial injury PLAN: 1. Continue supportive care 2. At this time we will continue IV dopamine and observe for the need of temporary pacemaker 3. Repeat echocardiogram showed preserved systolic function and no evidence of cardiomyopathy 4. Depending on his progress further recommendations will be made, prognosis is guarded. Objective - Vital Signs Vital signs: Vital Signs Temp 99.0 F 07/26/23 04:00 Pulse 61 07/26/23 07:00 Resp 20 07/26/23 07:00 BP 148/59 07/26/23 07:00 Pulse Ox 98 07/26/23 07:00 FiO2 40 07/26/23 04:00 Intake & Output 07/25/23 07/26/23 07/26/23 18:59 06:59 18:59 Intake Total 0536.075 1583.280 157 Output Total 90 141 10 Balance 5063.958 3040.280 147 Weight 95.7 kg Intake: IV 1256 1416 113 0.9 120 80 10 Calcium Gluconate in NaCl 100 2 gm In Saline 1 100ml. bag @ 400 mls/hr IVPB ONCE ONE Rx#:[id number] Cefepime 2 gm In Sodium 100 Chloride 0.9% 100 ml @ 25 mls/hr IVPB Q12HR [facility] Rx #:[id number] Dextrose 5% in Water 1, 1100 000 ml @ 100 mls/hr IV . [id number] [facility] with Sodium Bicarb (1 Meq/ml) 150 ml Rx#:[id number] Sodium Chloride 0.45% 1, 1100 100 000 ml @ 100 mls/hr IV . [id number] [facility] with Sodium Bicarb (1 Meq/ml) 150 ml Rx#:[id number] pressure bag 36 36 3 Intake, IV Titration 146.511 126.280 Amount Cefepime 2 gm In Sodium 100 Chloride 0.9% 100 ml @ 25 mls/hr IVPB Q12HR [facility] Rx #:[id number] propofoL 1,000 mg In 46.511 126.280 Empty Bag 1 bag @ 15 MCG/ KG/MIN 7.267 mls/hr IV . [id number] [facility] Rx#:[id number] Tube Feeding 396 528 44 Other 180 Output: Urine 90 141 10 Other: Voiding Method Indwelling Catheter Indwelling Catheter # Bowel Movements 1 ABP, PAP, CO, CI - Last Documented Arterial Blood Pressure 143/39 - Labs CBC & Chem 7: 07/26/23 04:35 07/26/23 04:35 Labs: Abnormal Lab Results - Last 24 Hours (Table) 04/30/24 04/30/24 04/30/24 Range/Units 08:18 11:16 11:16 WBC (3.8-10.6) k/uL RBC (4.30-5.90) m/uL Hgb (13.0-17.5) gm/dL Hct (39.0-53.0) % PT (10.0-12.5) sec INR (<1.2) ABG O2 Saturation (94-97) % Sodium (137-145) mmol/L Potassium (3.5-5.1) mmol/L Chloride (98-107) mmol/L Carbon Dioxide (22-30) mmol/L BUN (9-20) mg/dL Creatinine (0.66-1.25) mg/dL Glucose (74-99) mg/dL POC Glucose (mg/dL) 239 H 157 H (70-110) mg/dL Calcium (8.4-10.2) mg/dL Troponin I 1.020 H* (0.000-0.034) ng/mL 07/25/23 07/25/23 07/25/23 Range/Units 12:56 15:07 17:31 WBC (3.8-10.6) k/uL RBC (4.30-5.90) m/uL Hgb (13.0-17.5) gm/dL Hct (39.0-53.0) % PT (10.0-12.5) sec INR (<1.2) ABG O2 Saturation 97.9 H (94-97) % Sodium (137-145) mmol/L Potassium (3.5-5.1) mmol/L Chloride (98-107) mmol/L Carbon Dioxide (22-30) mmol/L BUN (9-20) mg/dL Creatinine (0.66-1.25) mg/dL Glucose (74-99) mg/dL POC Glucose (mg/dL) 196 H (70-110) mg/dL Calcium (8.4-10.2) mg/dL Troponin I 1.310 H* (0.000-0.034) ng/mL 07/25/23 07/26/23 07/26/23 Range/Units 20:09 00:18 04:35 WBC (3.8-10.6) k/uL RBC (4.30-5.90) m/uL Hgb (13.0-17.5) gm/dL Hct (39.0-53.0) % PT (10.0-12.5) sec INR (<1.2) ABG O2 Saturation (94-97) % Sodium 126 L (137-145) mmol/L Potassium 6.1 H* (3.5-5.1) mmol/L Chloride 96 L (98-107) mmol/L Carbon Dioxide 21 L (22-30) mmol/L BUN 62 H (9-20) mg/dL Creatinine 2.81 H (0.66-1.25) mg/dL Glucose 245 H (74-99) mg/dL POC Glucose (mg/dL) 146 H 241 H (70-110) mg/dL Calcium 7.0 L (8.4-10.2) mg/dL Troponin I (0.000-0.034) ng/mL 07/26/23 07/26/23 07/26/23 Range/Units 04:35 04:35 04:35 WBC 24.5 H (3.8-10.6) k/uL RBC 2.47 L (4.30-5.90) m/uL Hgb 7.1 L (13.0-17.5) gm/dL Hct 23.0 L (39.0-53.0) % PT 12.7 H (10.0-12.5) sec INR 1.2 H (<1.2) ABG O2 Saturation (94-97) % Sodium (137-145) mmol/L Potassium (3.5-5.1) mmol/L Chloride (98-107) mmol/L Carbon Dioxide (22-30) mmol/L BUN (9-20) mg/dL Creatinine (0.66-1.25) mg/dL Glucose (74-99) mg/dL POC Glucose (mg/dL) 275 H (70-110) mg/dL Calcium (8.4-10.2) mg/dL Troponin I (0.000-0.034) ng/mL Microbiology - Last 24 Hours (Table) 07/22/23 10:45 Blood Culture - Preliminary Blood 07/22/23 08:15 Blood Culture - Preliminary Blood 07/22/23 11:55 Gram Stain - Final Sputum Sputum Culture - Final
--- NOTE | 2023-07-26 07:57 | XR ---
EXAMINATION TYPE: XR chest 1V portable DATE OF EXAM: 07/26/2023 5:24 AM CLINICAL INDICATION:Male, 72 years old with history of mechanical ventilation; COMPARISON: Chest radiographs from 07/25/2023. TECHNIQUE: XR chest 1V portable Frontal view of the chest. FINDINGS: Lungs/Pleura: There is no evidence of pleural effusion, focal consolidation, or pneumothorax. Pulmonary vascularity: Unremarkable. Heart/mediastinum: Cardiomediastinal silhouette is enlarged and stable. Atherosclerotic calcificatio ns are seen in the aorta. Musculoskeletal: No acute osseous pathology. Other findings: None Lines/Tubes: Endotracheal tube with distal tip 3.6 cm above the divine. Nasogastric tube with its distal tip and side-port projecting under the diaphragm. Left internal jugular central venous catheter with distal tip at the cavoatrial junction. Left central venous catheter with distal tip at the cavoatrial junction. IMPRESSION: 1. Low lung volumes with a generalized hazy appearance which could represent atelectasis versus pulm onary edema correlate with serum BNP. 2. Stable support line and tubes.
[2023-07-26] MEDS: ENOXAPARIN 30 MG/0.3 ML SYRINGE SQ SCH (08:00)
[2023-07-26 08:45] LABS: Glucose,Whole Blood 278 mg/dL (70-110)
[2023-07-26] MEDS: LORazepam 2 MG/ML INJ IV STA (09:25)
[2023-07-26] MEDS: levETIRAcetam IV 500 MG/5 ML VIAL IVP SCH (09:46)
[2023-07-26 10:14] LABS: African American GFR (CKD) 25 (>60 ml/min/1.73 sqM); Anion Gap 11 mmol/L; Blood Urea Nitrogen 63 mg/dL (9-20); Calcium 7.4 mg/dL (8.4-10.2); Carbon Dioxide 22 mmol/L (22-30); Chloride 96 mmol/L (98-107); Glucose 267 mg/dL (74-99); Non-African American GFR(CKD) 21 (>60 ml/min/1.73 sqM); Potassium 5.6 mmol/L (3.5-5.1); Sodium 129 mmol/L (137-145)
--- NOTE | 2023-07-26 10:51 | P.PN ---
Subjective Patient is seen for follow-up for chronic kidney disease, s/p renal transplant He remains on the vent. FiO2 40% Maintained on bicarb drip. Urine output at about 5-10 cc an hour. Serum creatinine increased to 2.8 . Maintained on dopamine for bradycardia. Noted to have seizures yeterday when sedation was decreased. Being followed by Neurology. Repeat tacrolimus level elevated at 14.7, Prograf on hold. Objective - Vital Signs Vital signs: Vital Signs Temp 98 F 07/26/23 08:00 Pulse 77 07/26/23 10:00 Resp 20 07/26/23 10:00 BP 145/55 07/26/23 10:00 Pulse Ox 98 07/26/23 10:00 FiO2 40 07/26/23 08:00 Intake & Output 07/25/23 07/26/23 07/26/23 18:59 06:59 18:59 Intake Total 2035.804 2018.280 812.643 Output Total 90 141 25 Balance 0684.737 1425.280 787.643 Weight 95.7 kg Intake: IV 1256 1416 232 0.9 120 80 20 Calcium Gluconate in NaCl 100 2 gm In Saline 1 100ml. bag @ 400 mls/hr IVPB ONCE ONE Rx#:[id number] Cefepime 2 gm In Sodium 100 100 Chloride 0.9% 100 ml @ 25 mls/hr IVPB Q12HR MARCEL Rx #:[id number] Dextrose 5% in Water 1, 1100 000 ml @ 100 mls/hr IV . [id number] MARCEL with Sodium Bicarb (1 Meq/ml) 150 ml Rx#:[id number] Sodium Chloride 0.45% 1, 1100 100 000 ml @ 100 mls/hr IV . [id number] MARCEL with Sodium Bicarb (1 Meq/ml) 150 ml Rx#:[id number] pressure bag 36 36 12 Intake, IV Titration 146.511 126.280 340.643 Amount Cefepime 2 gm In Sodium 100 Chloride 0.9% 100 ml @ 25 mls/hr IVPB Q12HR MARCEL Rx #:[id number] Dextrose/Water 1 250ml. 24.9 bag @ 5 MCG/KG/MIN 8.334 mls/hr IV .Q24H MARCEL with DOPamine DRIP 800 mg Rx#: [id number] Sodium Chloride 0.45 % 1, 300 000 ml @ 100 mls/hr IV . Q11H MARCEL with Sodium Bicarb (1 Meq/ml) 100 ml Rx#:[id number] propofoL 1,000 mg In 46.511 126.280 15.743 Empty Bag 1 bag @ 15 MCG/ KG/MIN 7.267 mls/hr IV . [id number] MARCEL Rx#:[id number] Tube Feeding 396 528 170 Other 180 70 Output: Urine 90 141 25 Other: Voiding Method Indwelling Catheter Indwelling Catheter # Bowel Movements 1 ABP, PAP, CO, CI - Last Documented Arterial Blood Pressure 164/56 - Exam Patient is sedated and on the vent Examination of the heart S1 and S2 Examination of the lungs bilateral breath sounds are heard Abdomen is soft Examination of lower extremities shows no significant edema - Labs CBC & Chem 7: 07/26/23 04:35 07/26/23 09:40 Labs: Abnormal Lab Results - Last 24 Hours (Table) 07/25/23 07/25/23 07/25/23 Range/Units 11:16 11:16 12:56 WBC (3.8-10.6) k/uL RBC (4.30-5.90) m/uL Hgb (13.0-17.5) gm/dL Hct (39.0-53.0) % PT (10.0-12.5) sec INR (<1.2) ABG O2 Saturation 97.9 H (94-97) % Sodium (137-145) mmol/L Potassium (3.5-5.1) mmol/L Chloride (98-107) mmol/L Carbon Dioxide (22-30) mmol/L BUN (9-20) mg/dL Creatinine (0.66-1.25) mg/dL Glucose (74-99) mg/dL POC Glucose (mg/dL) 157 H (70-110) mg/dL Calcium (8.4-10.2) mg/dL Troponin I 1.020 H* (0.000-0.034) ng/mL 07/25/23 07/25/23 07/25/23 Range/Units 15:07 17:31 20:09 WBC (3.8-10.6) k/uL RBC (4.30-5.90) m/uL Hgb (13.0-17.5) gm/dL Hct (39.0-53.0) % PT (10.0-12.5) sec INR (<1.2) ABG O2 Saturation (94-97) % Sodium (137-145) mmol/L Potassium (3.5-5.1) mmol/L Chloride (98-107) mmol/L Carbon Dioxide (22-30) mmol/L BUN (9-20) mg/dL Creatinine (0.66-1.25) mg/dL Glucose (74-99) mg/dL POC Glucose (mg/dL) 196 H 146 H (70-110) mg/dL Calcium (8.4-10.2) mg/dL Troponin I 1.310 H* (0.000-0.034) ng/mL 07/26/23 07/26/23 07/26/23 Range/Units 00:18 04:35 04:35 WBC 24.5 H (3.8-10.6) k/uL RBC 2.47 L (4.30-5.90) m/uL Hgb 7.1 L (13.0-17.5) gm/dL Hct 23.0 L (39.0-53.0) % PT (10.0-12.5) sec INR (<1.2) ABG O2 Saturation (94-97) % Sodium 126 L (137-145) mmol/L Potassium 6.1 H* (3.5-5.1) mmol/L Chloride 96 L (98-107) mmol/L Carbon Dioxide 21 L (22-30) mmol/L BUN 62 H (9-20) mg/dL Creatinine 2.81 H (0.66-1.25) mg/dL Glucose 245 H (74-99) mg/dL POC Glucose (mg/dL) 241 H (70-110) mg/dL Calcium 7.0 L (8.4-10.2) mg/dL Troponin I (0.000-0.034) ng/mL 07/26/23 07/26/23 07/26/23 Range/Units 04:35 04:35 08:43 WBC (3.8-10.6) k/uL RBC (4.30-5.90) m/uL Hgb (13.0-17.5) gm/dL Hct (39.0-53.0) % PT 12.7 H (10.0-12.5) sec INR 1.2 H (<1.2) ABG O2 Saturation (94-97) % Sodium (137-145) mmol/L Potassium (3.5-5.1) mmol/L Chloride (98-107) mmol/L Carbon Dioxide (22-30) mmol/L BUN (9-20) mg/dL Creatinine (0.66-1.25) mg/dL Glucose (74-99) mg/dL POC Glucose (mg/dL) 275 H 278 H (70-110) mg/dL Calcium (8.4-10.2) mg/dL Troponin I (0.000-0.034) ng/mL 07/26/23 Range/Units 09:40 WBC (3.8-10.6) k/uL RBC (4.30-5.90) m/uL Hgb (13.0-17.5) gm/dL Hct (39.0-53.0) % PT (10.0-12.5) sec INR (<1.2) ABG O2 Saturation (94-97) % Sodium 129 L (137-145) mmol/L Potassium 5.6 H (3.5-5.1) mmol/L Chloride 96 L (98-107) mmol/L Carbon Dioxide (22-30) mmol/L BUN 63 H (9-20) mg/dL Creatinine 2.81 H (0.66-1.25) mg/dL Glucose 267 H (74-99) mg/dL POC Glucose (mg/dL) (70-110) mg/dL Calcium 7.4 L (8.4-10.2) mg/dL Troponin I (0.000-0.034) ng/mL Microbiology - Last 24 Hours (Table) 07/22/23 10:45 Blood Culture - Preliminary Blood 07/22/23 08:15 Blood Culture - Preliminary Blood 07/22/23 11:55 Gram Stain - Final Sputum Sputum Culture - Final Assessment and Plan Assessment: 1. Renal and Liver transplant status 2015 [facility]. Managed with Tacrolimus 3/2, CellCept, Prednisone. tacrolimus level was elevated at 14.7. Prograf and cellcept on hold. Maintained on IV steroids. 2. CKD Stage IIIa due to solitary kidney and chronic KIM usse, Baseline creatinine 1.4-1.6 mg/dL. 3. AVDRF with hypoxia s/p CPA due to bradycardia. 4. HTN with CKD 5. Possibly metastatic CA vs Infectious. CT abdomen shows extensive disease in liver, likely metastatic. Right lung effusion. 6. Anemia with CKD 7. Metabolic Acidosis with Septic Shock 8. Acute kidney injury, ATN currently oliguric 9. Bradycardia, maintained on dopamine. Being followed by cardiology 10. Hyperkalemia associated with ARI and elevated tacrolimus level. 11. Hyponatremia, hypovolemic, improved. Maintained on isotonic bicarb drip based in 0.45NS. Plan: Continue with IV bicarb Increase hydrocortisone as pt is not any other immunosupression. Continue dopamine Contiue to hold tacrolimus. Overall prognosis is guarded. Continue with oral sodium bicarb
[2023-07-26] MEDS: FUROSEMIDE 10 MG/ML 10 ML VIAL IV STA (11:03)
[2023-07-26 11:35] LABS: Glucose,Whole Blood 245 mg/dL (70-110)
--- NOTE | 2023-07-26 11:55 | P.PN ---
Subjective Progress Note Date: 07/26/23 72-year-old black male, who [facility], is seen in the emergency department, on July 18, for shortness of breath. The patient apparently has been having shortness of breath, since being discharged from [facility]. Recently, the patient was started on a fentanyl patch for back pain, but denies all other medications. He apparently was admitted at the other hospital, for total of 4 days according to his , and was found to have some lesions on his liver and lung. The patient is apparently awaiting an outpatient PET scan. He did see one of the cancer doctors at the other facility. Currently, the patient is seen in ER room 28. The patient is currently on BiPAP, with settings of 12/6 and 28%. According to his he has a history of liver and kidney transplantation. He is getting saline at 75 cc an hour. He apparently had a chest x-ray that was interpreted as normal, and a VQ scan that was interpreted as being very low probability for pulmonary embolism. He does not use oxygen at home. He quit smoking 43 years ago. He had a blood gas showing a pO2 of 124, pCO2 of 35, and a pH of 7.30. This is consistent with metabolic acidosis. His other medical history includes gastroesophageal reflux disease, hypertension, hyperlipidemia, liver kidney transplant at [facility] in 2016, diabetes, and gout. The patient is a former smoker, having quit some 43 years ago as mentioned above. Current labs include a white count of 16.2, hemoglobin 8.4, hematocrit 27.6, and a platelet count of 268,000. Sodium 126, potassium 5.2, chlorides 102, CO2 18, BUN 35, and creatinine 1.63. Calcium is 8.5. Glucose is 161. The patient has a nonanion gap metabolic acidosis, likely from his renal insufficiency/failure. The patient has a couple different chest x- rays, which did not show acute cardiopulmonary disease. Progress note dated July 22, 2023. The patient was seen yesterday in consultation, when he was in the emergency department. The patient was admitted to the floor. Sometime early this morning, the patient developed bradycardia, and pulseless electrical activity. At that time, the patient's blood glucose was only 25. The patient was intubated, for respiratory failure, transferred to the intensive care unit. He is currently in the ICU, on the ventilator. Settings include volume assist- control, rate 20, tidal volume 450, FiO2 50%, PEEP of 5. Blood gases show pO2 of 243, pCO2 42, and a pH of 7.25. The patient is getting dextrose with half- normal saline at 75 cc an hour, propofol at 50 mcg/kg/min. He remains on Levaquin. His procalcitonin level was elevated at 4.10. Current labs include a white count 19.4, hemoglobin 8.2, hematocrit 27.3, and a platelet count of 2 62,000. Sodium 131, potassium 5.2, chlorides 104, CO2 17, anion gap 10, BUN 31, and creatinine 1.46. Glucose is 120. AST is 138. ALT is 87. Alkaline phosphatase is 620. Procalcitonin level was 4.10. He tested negative for influenza, RSV, and coronavirus. Chest x-ray shows the tip of the central venous catheter, at the junction of the superior vena cava and right atrium. Chest x-ray also suggest some pulmonary vascular congestion. Progress note dated July 23, 2023. 72-year-old black male, seen in follow-up, room 259. The patient remains on the mechanical ventilator. Current vent settings include volume assist-control, rate 20, tidal volume 450, FiO2 50%. PEEP of 5. Blood gases show pO2 176, pCO2 33, pH is 7.31. The patient is getting saline at 75 cc an hour, propofol at 40 mcg/kg/min. Currently, norepinephrine is on hold. He is getting vital AF at 30, with a goal of 42. He continues on cefepime. We did attempt a daily interruption of sedation, but he did poorly and, we could not do a spontaneous breathing trial. He was placed back on the ventilator. Current labs include a white count of 13.1, hemoglobin 7.9, hematocrit 25.4, and a normal platelet count. Sodium 127, potassium 5, chlorides 106, CO2 15, BUN 32, creatinine 1.32. Glucose is 185. Calcium is 8. Chest x-ray shows a properly positioned endotracheal tube. In addition, there may be an infiltrate in the right lung, with volume loss in the right lung, and a small right-sided pleural effusion. On today's evaluation of 07/24/2023, the patient is being seen for a follow-up. Patient cardiac arrest and the patient remains intubated on mechanical ventilator. Noted the patient was intubated on 07/22/2023 following cardiac arrest that followed an episode of bradycardia followed by pulseless electrical activity. During that time, the patient was also hypoglycemic. Noted the patient is a very complicated history of liver and kidney transplant and the patient has undergone his transportation back in 2016 at [facility]. The patient has been maintained on immunosuppressive agents with a combination of CellCept and Prograf and low-dose prednisone on an outpatient basis. Note that the CellCept is currently on hold and the patient remains on a combination of Prograf and low-dose prednisone. On a separate note, a CAT scan of the chest that was done also on this patient at [facility] showed extensive bilateral pulmonary nodules which raise the possibility of underlying metastatic disease/infection/post transplant lymphoproliferative disorder. If final diagnosis not been made at this point in time. In fact, the patient is currently on a mechanical ventilator, and is afebrile. He is on assist-control mode of mechanical ventilation at rate of 20, tidal volume of 450, FiO2 is at 40% with a PEEP of 5. The blood gas showing a pH of 7.3 with a pCO2 of 30 and pO2 of 146. Peak airway pressure is around 15. IV fluids are currently at KVO. The patient is currently on vital AF at rate of 42 to cc an hour for enteral feeding and nutritional support. He is currently on no pressors. The WBC count of 15.2 with a hemoglobin of 7.7 and a platelet count of 165. The serum bicarb is at 12 with a sodium level of 126 and a potassium level of 5.2. BUN is at 42 with a creatinine of 1.8. LFTs remain abnormal with an AST of 58, ALT of 52 and an alkaline phosphatase of 596. Serum protein is at 2.0. The blood cultures are still pending, sputum culture also pending. The patient is currently hemodynamically stable on no pressors. He is known to have hypertension hyperlipidemia and diabetes mellitus type 2 and history of gout. Has echocardiogram that was done on 07/20/2023 showed preserved LV function without any significant valvular abnormalities and mild pulmonary hypertension was also seen. CAT scan of the brain done postarrest showed no acute intracranial process. Ultrasound of the abdomen and the bladder showed heterogeneous liver lesions the significance of which was not known. Possibility of hepatic metastasis cannot be completely ruled out. Postoperative dilatation of the common bile duct was seen and the transplanted kidney was noted. The patient's original kidneys are quite atrophic at this point in time. His procalcitonin level was 4.0 at the time of admission. On today's evaluation of 07/25/2023, the patient is being seen for a follow-up. Patient remains sedated on propofol which is running at 30 mcg/kg/min. Events from yesterday evening was noted. The patient had high degree AV block and she had Mobitz type II and episodes of third-degree AV block. Based on that, cardiology has been involved and the patient was started on dopamine at 5 mcg/kg/min. His current rhythm is sinus bradycardia. Note that the patient's echocardiogram showed a preserved LV function. Troponins will be rechecked and ballast inspector on the case for now. He remains intubated on mechanical ventilator. He is calm and comfortable. He is on assist-control mode at rate of 20, tidal volume of 450, FiO2 of 40% with a PEEP of 5. Blood gas showed a pH of 7.33 with a pCO2 of 33 and pO2 of 75. The chest x-ray from today shows no significant interval change and some atelectasis and small effusion in the right lung base. Orotracheal tube remains in a good location. CAT scan of the abdomen and pelvis was also done yesterday and it showed mid to distal small bowel loops being compressed. Mild partial small bowel obstruction/ileus cannot be completely excluded. The patient has extensive metastases to his liver along with ascites within the pelvis. There is also a loculated pleural effusion in the right lung base. Empyema is felt to be less likely at this point in time based on the clinical presentation. The patient is currently has a white cell count of 16.2 with a hemoglobin 7.4 and a platelet count of 136. The sodium is at 126, potassium is at 4.9 and serum bicarb is at 15 with a BUN of 46 and a creatinine of 2.35. LFTs show an AST of 145, ALT of 65, alkaline phosphatase of 527, and total protein of 4.3 with an albumin of 1.9. The Prograf level was 14.7. Nephrology on the case. Cardiology has also been consulted regarding the high degree AV block. Meanwhile, the patient is taking enteral feeding for nu tritional support and the patient is on vital AF At the rate of 44 cc an hour. On today's evaluation of 07/26/2023, the patient is being seen for a follow-up. The patient this morning is having jerking movement in his right upper extremity. This is very automatic and repetitive. Seizure was considered. Noted the patient is still on propofol running at 20 mcg/kg/min. Cardiac rhythm is first-degree AV block without any significant bradycardia arrhythmias noted yesterday the patient remains on dopamine at 5 mcg/kg/min. The patient is also on a bicarb infusion with a total of 2 ampoules of sodium bicarb and half-normal saline at rate of 100 cc an hour. He remains on mechanical ventilator settings of 20, tidal volume of 450, FiO2 40% with a PEEP of 5. Blood gas showed pH of 7.37 with a pCO2 of 79 and pO2 of 86. Initial CAT scan of the brain was negative. Repeat CAT scan of the brain will be needed specially there is underlying suspected seizure activity. The blood work from today shows a sodium level of 129 and a potassium level of 6.1. The patient was treated accordingly with Lokelma and the patient was also given D50 insulin and she is already on a bicarb infusion. She was also given calcium. Repeat potassium was down to 5.6. At the same time, the patient's BUN is at 63 with a creatinine of 2.81. Bicarb level is at 22. Blood sugars at 245 and the patient on Levemir insulin 13 units along with a sliding scale coverage. White cell count of 24.5 with a hemoglobin of 7.1. Repeat chest x-ray was done today and the patient was found to have the ET tube being around 3 cm above the divine. Smaller lung volumes and generalized haziness along with some atelectatic changes. All of the lines are in good location. The patient is afebrile at this point in time. Objective - Vital Signs Vital signs: Vital Signs Temp 98 F 07/26/23 08:00 Pulse 73 07/26/23 11:00 Resp 20 07/26/23 11:00 BP 153/61 07/26/23 11:00 Pulse Ox 98 07/26/23 11:00 FiO2 40 07/26/23 11:38 Intake & Output 0407/26/23 07/26/23 18:59 06:59 18:59 Intake Total 7740.656 3106.280 965.943 Output Total 90 141 35 Balance 1507.613 7855.280 930.943 Weight 95.7 kg Intake: IV 1256 1416 235 0.9 120 80 20 Calcium Gluconate in NaCl 100 2 gm In Saline 1 100ml. bag @ 400 mls/hr IVPB ONCE ONE Rx#:[id number] Cefepime 2 gm In Sodium 100 100 Chloride 0.9% 100 ml @ 25 mls/hr IVPB Q12HR MARCEL Rx #:[id number] Dextrose 5% in Water 1, 1100 000 ml @ 100 mls/hr IV . [id number] MARCEL with Sodium Bicarb (1 Meq/ml) 150 ml Rx#:[id number] Sodium Chloride 0.45% 1, 1100 100 000 ml @ 100 mls/hr IV . [id number] MARCEL with Sodium Bicarb (1 Meq/ml) 150 ml Rx#:[id number] pressure bag 36 36 15 Intake, IV Titration 146.511 126.280 448.943 Amount Cefepime 2 gm In Sodium 100 Chloride 0.9% 100 ml @ 25 mls/hr IVPB Q12HR MARCEL Rx #:[id number] Dextrose/Water 1 250ml. 33.2 bag @ 5 MCG/KG/MIN 8.334 mls/hr IV .Q24H MARCEL with DOPamine DRIP 800 mg Rx#: [id number] Sodium Chloride 0.45 % 1, 400 000 ml @ 100 mls/hr IV . Q11H MARCEL with Sodium Bicarb (1 Meq/ml) 100 ml Rx#:[id number] propofoL 1,000 mg In 46.511 126.280 15.743 Empty Bag 1 bag @ 15 MCG/ KG/MIN 7.267 mls/hr IV . [id number] MARCEL Rx#:[id number] Tube Feeding 396 528 212 Other 180 70 Output: Urine 90 141 35 Other: Voiding Method Indwelling Catheter Indwelling Catheter # Bowel Movements 1 ABP, PAP, CO, CI - Last Documented Arterial Blood Pressure 164/58 - Exam No acute distress, intubated, and sedated. The patient is calm and comfortable and the patient is currently sedated on propofol. The orotracheal and orogastric tube are both in place. Head exam was generally normal. There was no scleral icterus or corneal arcus. Mucous membranes were moist. HEENT examination is grossly unremarkable. Neck supple. Full range of motion. No adenopathy thyromegaly or neck vein distention. Cardiovascular examination reveals regular rhythm rate. S1-S2 normal. No S3 or S4. No discernible murmur noted. Heart sounds are distant. Lungs reveal clear breath sounds. Breath sounds are equal bilaterally. No adventitious lung sounds including wheezes rhonchi or crackles. Abdomen soft bowel sounds are heard. No masses or tenderness. Extremities are intact. No cyanosis clubbing or edema. Skin is without rash or lesion. Neurologic examination cannot be assessed at this time. Patient is sedated and is calm and comfortable, withdraws to painful stimulation. The patient is having repetitive jerking movement of the right upper extremity, suspect seizure activity. - Labs CBC & Chem 7: 07/26/23 04:35 07/26/23 09:40 Labs: Abnormal Lab Results - Last 24 Hours (Table) 07/25/23 07/25/23 07/25/23 Range/Units 00:10 11:16 12:56 WBC (3.8-10.6) k/uL RBC (4.30-5.90) m/uL Hgb (13.0-17.5) gm/dL Hct (39.0-53.0) % PT (10.0-12.5) sec INR (<1.2) ABG O2 Saturation 97.9 H (94-97) % Sodium (137-145) mmol/L Potassium (3.5-5.1) mmol/L Chloride (98-107) mmol/L Carbon Dioxide (22-30) mmol/L BUN (9-20) mg/dL Creatinine (0.66-1.25) mg/dL Glucose (74-99) mg/dL POC Glucose (mg/dL) (70-110) mg/dL Calcium (8.4-10.2) mg/dL Troponin I 1.020 H* (0.000-0.034) ng/mL TB Test (QFT) Gold Plus Indetermin A (Negative) 07/25/23 07/25/23 07/25/23 Range/Units 15:07 17:31 20:09 WBC (3.8-10.6) k/uL RBC (4.30-5.90) m/uL Hgb (13.0-17.5) gm/dL Hct (39.0-53.0) % PT (10.0-12.5) sec INR (<1.2) ABG O2 Saturation (94-97) % Sodium (137-145) mmol/L Potassium (3.5-5.1) mmol/L Chloride (98-107) mmol/L Carbon Dioxide (22-30) mmol/L BUN (9-20) mg/dL Creatinine (0.66-1.25) mg/dL Glucose (74-99) mg/dL POC Glucose (mg/dL) 196 H 146 H (70-110) mg/dL Calcium (8.4-10.2) mg/dL Troponin I 1.310 H* (0.000-0.034) ng/mL TB Test (QFT) Gold Plus (Negative) 07/26/23 07/26/23 07/26/23 Range/Units 00:18 04:35 04:35 WBC 24.5 H (3.8-10.6) k/uL RBC 2.47 L (4.30-5.90) m/uL Hgb 7.1 L (13.0-17.5) gm/dL Hct 23.0 L (39.0-53.0) % PT (10.0-12.5) sec INR (<1.2) ABG O2 Saturation (94-97) % Sodium 126 L (137-145) mmol/L Potassium 6.1 H* (3.5-5.1) mmol/L Chloride 96 L (98-107) mmol/L Carbon Dioxide 21 L (22-30) mmol/L BUN 62 H (9-20) mg/dL Creatinine 2.81 H (0.66-1.25) mg/dL Glucose 245 H (74-99) mg/dL POC Glucose (mg/dL) 241 H (70-110) mg/dL Calcium 7.0 L (8.4-10.2) mg/dL Troponin I (0.000-0.034) ng/mL TB Test (QFT) Gold Plus (Negative) 07/26/23 07/26/23 07/26/23 Range/Units 04:35 04:35 08:43 WBC (3.8-10.6) k/uL RBC (4.30-5.90) m/uL Hgb (13.0-17.5) gm/dL Hct (39.0-53.0) % PT 12.7 H (10.0-12.5) sec INR 1.2 H (<1.2) ABG O2 Saturation (94-97) % Sodium (137-145) mmol/L Potassium (3.5-5.1) mmol/L Chloride (98-107) mmol/L Carbon Dioxide (22-30) mmol/L BUN (9-20) mg/dL Creatinine (0.66-1.25) mg/dL Glucose (74-99) mg/dL POC Glucose (mg/dL) 275 H 278 H (70-110) mg/dL Calcium (8.4-10.2) mg/dL Troponin I (0.000-0.034) ng/mL TB Test (QFT) Gold Plus (Negative) 07/26/23 07/26/23 Range/Units 09:40 11:34 WBC (3.8-10.6) k/uL RBC (4.30-5.90) m/uL Hgb (13.0-17.5) gm/dL Hct (39.0-53.0) % PT (10.0-12.5) sec INR (<1.2) ABG O2 Saturation (94-97) % Sodium 129 L (137-145) mmol/L Potassium 5.6 H (3.5-5.1) mmol/L Chloride 96 L (98-107) mmol/L Carbon Dioxide (22-30) mmol/L BUN 63 H (9-20) mg/dL Creatinine 2.81 H (0.66-1.25) mg/dL Glucose 267 H (74-99) mg/dL POC Glucose (mg/dL) 245 H (70-110) mg/dL Calcium 7.4 L (8.4-10.2) mg/dL Troponin I (0.000-0.034) ng/mL TB Test (QFT) Gold Plus (Negative) Microbiology - Last 24 Hours (Table) 07/22/23 10:45 Blood Culture - Preliminary Blood 07/22/23 08:15 Blood Culture - Preliminary Blood 07/22/23 11:55 Gram Stain - Final Sputum Sputum Culture - Final Assessment and Plan Plan: Acute cardiac arrest with a normal echocardiogram and no ongoing cardiac arrhythmias. The patient had a episode of bradycardia followed by PEA. During the same time, the patient was hypoglycemic. This could have been a acute hypoglycemic event. Currently debated on mechanical ventilator and the patient is currently hemodynamically stable. The patient remains on mechanical ventilator, sedated for now. The patient will be given a sedation holiday and underlying mental status is to be assessed. Acute hypoxic respiratory failure postcardiac arrest and the patient is requiring intubation mechanical ventilation, there is improvement in the acid- base. Blood gases showing some ongoing mild component of metabolic acidosis. Shortness of breath under investigation. CAT scan of the chest that was done in outside hospital showed multiple bilateral pulmonary nodules/micronodules and obviously differential diagnosis regarding this abnormality is quite extensive specially with his underlying immunosuppressive state. Possibilities include malignancy including possibility of posttransplant or immunosuppression related lymphomas. Other possibilities include infections including possibility of opportunistic infections. Currently afebrile. Hemodynamically stable. The presentation is more typical of a malignancy specially the patient's CAT scan of the abdomen has shown extensive hepatic metastases. High degree AV block, with a present LV function and the patient is currently on dopamine at 5 mcg/kg/min. Current cardiac rhythm is first-degree AV block and the patient remains on dopamine at same dose. History of kidney/liver transplantation, September 2015, at [facility]. Patient has been maintained on a combination of Prograf, CellCept and prednisone, based on worsening renal function, Prograf was discontinued and the patient was also taken off CellCept and the patient is currently on stress dose hydrocortisone. Chronic kidney disease, posttransplantation, with a component of an acute kidney injury with some mild hyperkalemia, treated accordingly and the repeat potassium level is down to 5.6 Multiple hepatic lesions, case was discussed with interventional radiology. Suspect pancreatic cancer. Fine-needle aspirate of the liver mass is to be done today. Right lower lobe pleural effusion Seizure with repetitive movement of the right upper extremity is suspected. The patient is currently on propofol. Chronic elevation of the alkaline phosphatase and a component of transaminitis which is essentially improving at this point in time. Recent evaluation at [facility], which revealed nodules on his liver and lung, rule out carcinoma. Awaiting fine-needle aspirate of the liver History of hypertension. History of hyperlipidemia. History of gastroesophageal reflux disease. History of diabetes, currently on Levemir insulin History of gout. Previous history of tobacco use. Enteral feeding for nutritional support Hyponatremia, sodium levels at 126 and is being monitored closely. Plan: Give the patient sedation holiday and assess mental status, failed sedation holiday yesterday and the patient does not show any reasonable recovery in his mentation. Based on that, the patient was kept again on sedation to maintain se condary to the mechanical ventilator. Repeat CAT scan of the brain Give the patient total of 4 mg of IV Ativan and says jerking movement of the right upper extremity and start the patient on Keppra 500 mg every 12 hours. Obtain a neurology consultation. Obtain an EEG. Continue dopamine and monitor the cardiac rhythm. The patient is currently in a first-degree AV block discussed fluid management with nephrology. The patient was maintained on bicarbonate infusion for now. Metastatic liver disease, awaiting fine-needle aspirate of the liver masses. This will be done at the bedside with ultrasound guidance. Stop Lovenox. Stop aspirin for now. Hold Prograf for now and monitor renal function Monitor potassium levels Continue enteral feeding for nutritional support Consider lumbar puncture if there is no improvement in the mentation. Condition is critical. Condition is critical and will coordinate care with infectious disease and nephrology. Continue Lovenox for DVT prophylaxis Continue IV cefepime Condition is critical we will continue to follow make further recommendations based on the progress. This evaluation was done more than 40 minutes. Time with Patient: Greater than 30
--- NOTE | 2023-07-26 12:54 | US ---
EXAMINATION TYPE: US biopsy liver DATE OF EXAM: 07/26/2023 COMPARISON: CT scan 07/24/2023 HISTORY: Pancreatic mass with multiple liver lesions The procedure was explained to the patient. The risks, complications, benefits, and alternatives wer e discussed with the patient's family and any questions were answered. Informed consent was obtained . Patient was placed supine bedside in ICU and prepped and draped in the usual sterile fashion. All elements of maximal barrier and sterile technique utilized. Utilizing a percent guidance, an 18 gauge core biopsy needle access into the left lobe of the liver was achieved and a two18 gauge core samples were obtained. The patient was stable throughout the pro cedure and remained stable upon discharge. IMPRESSION: 1. Successful ultrasound-guided core biopsy of the liver.
[2023-07-26] MEDS: MICROFIBRILLAR COLLAGEN HEMOST 0.5 GM PACK TOPICAL ONE (12:57)
--- NOTE | 2023-07-26 14:03 | EEG ---
ELECTROENCEPHALOGRAM REPORT PREAMBLE: This is a 72-year-old male, who has been admitted since 07/19/2023 for exertional dyspnea. Patient has been in and out of hospitals for several weeks with shortness of breath. The patient was started on BiPAP, but then later was intubated. The patient has received 4 mg Ativan at 9:00 am. The patient also on Keppra, propofol. EEG FINDINGS: This is a 21-channel digital EEG recorded with video component, utilizing stated 10/20 international system with referential and bipolar montages. The recording starts and continues with the presence of predominantly very suppressed generalized cerebral activity intermixed with some [id number] amplitude 2 to 3 hertz generalized delta slowing seen intermittently. Different stages of sleep were not seen. Photic driving response was not seen. No focal or generalized epileptiform activity was seen. IMPRESSION: This is a severely abnormal EEG, due to presence of generalized background suppression, intermixed with some low amplitude 2 to 3 hertz delta slowing seen intermittently. This is suggestive of generalized cerebral dysfunction as can be seen with toxic metabolic encephalopathy or related to diffuse structural brain abnormality. No epileptiform activity was seen. Followup EEG recommended, if clinically indicated. No electrographic seizures were seen. MMODL / IJN: [id number] /
--- NOTE | 2023-07-26 15:31 | CT ---
EXAMINATION TYPE: CT brain wo con DATE OF EXAM: 07/26/2023 COMPARISON: 07/21/2023 INDICATION: POST CARDIAC ARREST, SEIZURE DLP: 1205.4 mGycm, Automated exposure control for dose reduction was used. CONTRAST: None CT of the brain is performed utilizing 3 mm thick sections through the posterior fossa and 3 mm thick sections through the remaining calvarium. Study is performed within 24 hours of [facility] to the [facility]. No abnormal hyperdensity is present to suggest an acute intracranial hemorrhage. No mass lesion is evident. Physiologic basal ganglion calcification is present. 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 This is an interval finding. Finding can be acute. There is l eft anterior parietal lobe infarct. This is new. Ventricles and sulci are appropriate for the patient age. Paranasal sinuses and mastoid air cells within the [id number] are clear. IMPRESSION: 1. Clinical correlation recommended for acute infarcts along the left parietal and left occipital l obes. Findings are abnormal findings.
--- NOTE | 2023-07-26 15:34 | P.CNNES ---
History of Present Illness Consult date: 07/26/23 Requesting physician: Tami Stanley Reason for Consult: post cardiac arrest History of Present Illness: Patient is a 72-year-old right-handed male with history of chronic back pain, peripheral arterial disease, history of kidney and liver transplant in 2014 for hepatitis C, came to the hospital on 05/20/2023 for altered mental status and difficulty breathing. Patient apparently was discharged from [facility] the day prior on 07/18/2023. He was hospitalized at [facility] from 07/13/2023 because of abdominal pain, back pain. CT scan of the abdomen showed nodules in the liver, lungs in the kidneys, concerning for possible tumor. Patient's mentions that he was discharged with fentanyl patch, and he was having difficulty breathing, therefore returned back to the hospital the next day. Apparently on 07/22/2023, patient had cardiac arrest. Apparently patient was doing well, during a Bipap weaning trial , however he went into bradycardia and lost pulse, CPR initiated following ACLS protocol , 2 round of epi given , blood sugar was low 25 , and D50% was given , improved blood sugar to 116. ROSC achieved in around 7 minutes per nursing report, but patient mental status did not improve, patient was intubated and transferred to the ICU Yesterday patient was noted to have some body jerking like myoclonic jerks. At present patient is on propofol 20 mcg/kg/min. Patient was noted to have some right arm jerking today, for which patient was given Ativan 4 mg and also s tarted on Keppra. The right arm twitching resolved. With sedation holiday, patient withdraws to pain, opens eyes but does not make any eye contact or follows directions. Stat EEG was performed. Patient also had undergone ultrasound-guided liver biopsy. Patient had undergone femoral-popliteal bypass in May 2023 after which she has been going downhill. Patient does have history of chronic back pain, follows up with [facility] different clinics. Patient has history of hepatitis C. He has undergone kidney and liver transplant in 2014. Also underwent treatment for hepatitis C. Patient has smoked 1 pack/day for 10 years, quit in 1977. He used to be an alcoholic, also heroin addict, quit in 1977. Patient's most recent blood test showed sodium 129, potassium 5.6, BUN 63, creatinine 2.81. Calcium 7.4. Troponins are elevated 1.020. CEA is severely elevated > 4500, and CA 199 antigen also > 10,000. Review of Systems ROS unobtainable: due to endotracheal tube, due to mental status Past Medical History Past Medical History: GERD/Reflux, Hyperlipidemia, Hypertension, Liver Disease, Renal Disease, Vascular Disorder Additional Past Medical History / Comment(s): liver/kidney failure with transplant at [facility] in 2016, IDDM type II, PVD, gout History of Any Multi-Drug Resistant Organisms: None Reported Past Surgical History: Cholecystectomy, Orthopedic Surgery Additional Past Surgical History / Comment(s): kidney and liver transplant september 2015, rt rotator cuff, bilateral hip fractures/surgery, ERCP with stent/since removed, R chest port. Past Anesthesia/Blood Transfusion Reactions: No Reported Reaction Past Psychological History: No Psychological Hx Reported Smoking Status: Former smoker Past Alcohol Use History: None Reported Past Drug Use History: Heroin - Past Family History Mother Family Medical History: Diabetes Mellitus Father Family Medical History: No Reported History Brother(s) Family Medical History: Diabetes Mellitus Sister(s) Family Medical History: Diabetes Mellitus Daughter(s) Family Medical History: No Reported History Medications and Allergies Home Medications Medication Instructions Recorded Confirmed Type INSULIN ASPART (NovoLOG) [NovoLOG See Protocol SQ AC-TID 04/21/22 07/19/23 History (formulary)] Latanoprost [Latanoprost 0.005%] 1 drop BOTH EYES 04/21/22 07/19/23 History NIFEdipine [Adalat CC] 60 mg PO BID 04/21/22 07/19/23 History Omeprazole 20 mg PO QAM 04/21/22 07/19/23 History carvediloL [Coreg] 6.25 mg PO BID 04/21/22 07/19/23 History lamiVUDine [Epivir] 100 mg PO QAM 04/21/22 07/19/23 History mycophenolate mofetiL [Cellcept] 250 mg PO BID 04/21/22 07/19/23 History predniSONE 2 mg PO QAM 04/21/22 07/19/23 History ursodioL [Ursodiol] 300 mg PO TID 04/21/22 07/19/23 History Insulin Glargine,Hum.rec.anlog 20 units SQ 03/29/23 07/19/23 History [Lantus Solostar Pen] allopurinoL 100 mg PO QAM 03/29/23 07/19/23 History Prevagen Memory Supplement 1 dose PO DAILY 05/25/23 07/19/23 History Aspirin EC [Ecotrin Low Dose] 81 mg PO DAILY 07/19/23 07/19/23 History Calcium Carbonate/Vitamin D3 1 tab PO BID 07/19/23 07/19/23 History [Calcium 500 mg-Vit D3 5 mcg (200 Unit)] Cholecalciferol [Vitamin D3 (10 10 mcg PO DAILY 07/19/23 07/19/23 History Mcg = 400 Iu)] HYDROcodone/APAP 10-325MG [[place] 1 tab PO Q6H PRN 07/19/23 07/19/23 History 10-325] Lactulose [Constulose] 20 gm PO BID PRN 07/19/23 07/19/23 History Magnesium Oxide [Mag-Ox] 400 mg PO DAILY 07/19/23 07/19/23 History Melatonin 6 mg PO HS 07/19/23 07/19/23 History Rosuvastatin Calcium 5 mg PO DAILY 07/19/23 07/19/23 History Sennosides/Docusate Sodium [Senna 1 tab PO BID 07/19/23 07/19/23 History Plus 8.6-50 mg Tablet] Tacrolimus [Prograf] 2 mg PO HS 07/19/23 07/19/23 History Tacrolimus [Prograf] 3 mg PO DAILY 07/19/23 07/19/23 History Timolol Maleate/Pf [Timoptic 0.25% 1 drop BOTH EYES BID 07/19/23 07/19/23 History Ocudose] fentaNYL 25MCG/HR PATCH [Duragesic 1 patch TRANSDERM Q72H 07/19/23 07/19/23 History 25MCG/HR] hydrALAZINE HCL 75 mg PO TID 07/19/23 07/19/23 History Allergies Allergy/AdvReac Type Severity Reaction Status Date / Time Penicillins Allergy Unknown Verified 07/19/23 15:21 tromethamine Allergy Unknown Verified 07/19/23 15:21 hydrocodone AdvReac see comment Verified 07/19/23 15:21 morphine AdvReac see comment Verified 07/19/23 15:21 NSAIDS (Non-Steroidal AdvReac Increased Verified 07/19/23 15:21 Anti-Inflamma creatine kinase level oxycodone AdvReac see comment Verified 07/19/23 15:21 Physical Examination - Vital Signs Vital Signs: Vital Signs Temp Pulse Pulse Pulse Resp BP BP 07/26/23 12:04 70 97 143/63 07/26/23 12:00 07/26/23 11:38 07/26/23 11:00 73 20 153/61 07/26/23 10:00 77 20 145/55 07/26/23 09:00 80 20 144/67 07/26/23 08:38 80 07/26/23 08:27 78 07/26/23 08:00 98 F 64 20 148/61 07/26/23 07:55 07/26/23 07:00 61 20 148/59 07/26/23 06:00 55 L 20 139/51 07/26/23 05:45 43 L 07/26/23 05:00 39 L 20 129/51 07/26/23 04:15 52 L 07/26/23 04:00 99.0 F 52 L 20 124/47 07/26/23 03:59 52 L 07/26/23 03:57 07/26/23 03:00 46 L 23 131/61 07/26/23 02:00 55 L 23 125/46 07/26/23 01:00 55 L 20 115/44 07/26/23 00:47 50 L 07/26/23 00:46 07/26/23 00:00 98.6 F 48 L 26 H 111/42 07/25/23 23:00 55 L 23 111/48 07/25/23 22:00 53 L 27 H 103/42 07/25/23 21:00 56 L 21 117/51 07/25/23 20:45 50 L 07/25/23 20:35 49 L 07/25/23 20:33 07/25/23 20:00 98.2 F 47 L 20 102/72 07/25/23 19:00 54 L 26 H 102/72 07/25/23 18:00 45 L 26 H 102/72 07/25/23 17:00 46 L 26 H 07/25/23 16:00 97.8 F 47 L 20 07/25/23 15:55 45 L 07/25/23 15:49 04/30/24 15:47 45 L 07/25/23 15:00 45 L 23 07/25/23 14:00 44 L 30 H 07/25/23 13:00 44 L 24 Pulse Ox FiO2 07/26/23 12:04 07/26/23 12:00 40 07/26/23 11:38 40 07/26/23 11:00 98 07/26/23 10:00 98 07/26/23 09:00 96 07/26/23 08:38 07/26/23 08:27 07/26/23 08:00 97 40 07/26/23 07:55 40 07/26/23 07:00 98 07/26/23 06:00 97 07/26/23 05:45 07/26/23 05:00 98 07/26/23 04:15 07/26/23 04:00 97 40 07/26/23 03:59 07/26/23 03:57 40 07/26/23 03:00 95 07/26/23 02:00 97 07/26/23 01:00 98 07/26/23 00:47 07/26/23 00:46 40 07/26/23 00:00 97 40 07/25/23 23:00 97 07/25/23 22:00 98 07/25/23 21:00 98 07/25/23 20:45 07/25/23 20:35 07/25/23 20:33 40 07/25/23 20:00 97 40 07/25/23 19:00 97 07/25/23 18:00 97 07/25/23 17:00 96 07/25/23 16:00 99 40 07/25/23 15:55 07/25/23 15:49 40 07/25/23 15:47 07/25/23 15:00 98 07/25/23 14:00 98 07/25/23 13:00 99 Intake and Output 07/25/23 07/26/23 07/26/23 22:59 06:59 14:59 Intake Total 5348.550 3031.114 965.943 Output Total 69 97 35 Balance 7429.085 9636.114 930.943 Intake: IV 734 1034 235 0.9 60 60 20 Calcium Gluconate in NaCl 100 2 gm In Saline 1 100ml. bag @ 400 mls/hr IVPB ONCE ONE Rx#:[id number] Cefepime 2 gm In Sodium 50 50 100 Chloride 0.9% 100 ml @ 25 mls/hr IVPB Q12HR MARCEL Rx #:[id number] Dextrose 5% in Water 1, 300 000 ml @ 100 mls/hr IV . [id number] MARCEL with Sodium Bicarb (1 Meq/ml) 150 ml Rx#:[id number] Sodium Chloride 0.45% 1, 300 800 100 000 ml @ 100 mls/hr IV . [id number] MARCEL with Sodium Bicarb (1 Meq/ml) 150 ml Rx#:[id number] pressure bag 24 24 15 Intake, IV Titration 96.772 30.114 448.943 Amount Dextrose/Water 1 250ml. 33.2 bag @ 5 MCG/KG/MIN 8.334 mls/hr IV .Q24H MARCEL with DOPamine DRIP 800 mg Rx#: [id number] Sodium Chloride 0.45 % 1, 400 000 ml @ 100 mls/hr IV . Q11H MARCEL with Sodium Bicarb (1 Meq/ml) 100 ml Rx#:[id number] propofoL 1,000 mg In 96.772 30.114 15.743 Empty Bag 1 bag @ 15 MCG/ KG/MIN 7.267 mls/hr IV . [id number] MARCEL Rx#:[id number] Tube Feeding 352 352 212 Other 30 150 70 Output: Urine 69 97 35 Other: Voiding Method Indwelling Catheter Indwelling Catheter # Bowel Movements 1 Weight 95.7 kg ABP, PAP, CO, CI - Last 8 Hours Arterial Blood Pressure 164/58 Arterial Blood Pressure 164/56 Arterial Blood Pressure 143/43 Arterial Blood Pressure 143/39 Patient is an elderly Afro-[place]ian male, is intubated, sedated on propofol 20 mcg/kg/min. Patient is comatose with GCS of 3. On cranial nerve examination, pupils are equal, round and reacting to light, oculocephalics are absent. Corneal reflexes are present. Patient does have a weak cough reflex. He is breathing over the ventilator. Visual dubon could not be tested. Other cranial nerves could not be tested. With painful stimulus like nailbed pressure produces twitching of the right lower facial region, almost appears like focal seizure. Patient does not withdraw to painful stimuli. Deep tendon reflexes are almost absent and plantars flat. Sensory to touch cannot be assessed, and patient does not withdraw to painful stimulus, but does start twitching his right side of the lip. Cerebellar function cannot be tested. Tone and bulk of muscles normal. Gait deferred.. On general examination, there is no carotid bruit or murmur, S1-S2 audible. Chest is clear on consultation. Abdomen is soft nontender. No organomegaly, bowel sounds present. Patient has peripheral edema. Results - Laboratory Findings CBC and BMP: 07/27/23 04:39 07/27/23 04:39 Abnormal Lab Findings: Abnormal Labs 07/19/23 07/19/23 07/19/23 14:00 14:00 14:00 WBC 16.0 H RBC 2.86 L Hgb 8.9 L Hct 27.0 L MCHC RDW Plt Count Neutrophils # 14.2 H Lymphocytes # 0.7 L PT INR D-Dimer 18.53 H ABG pH ABG pCO2 ABG pO2 ABG HCO3 ABG Total CO2 ABG O2 Saturation Sodium 124 L Potassium Chloride Carbon Dioxide 17 L BUN 30 H Creatinine 1.76 H Glucose 331 H POC Glucose (mg/dL) Hemoglobin A1c Osmolality Calcium 8.1 L Phosphorus AST 241 H ALT 153 H Alkaline Phosphatase 669 H Troponin I Total Protein 5.2 L Albumin 2.5 L Procalcitonin Urine Protein Amorphous Sediment Urine Mucus Tacrolimus TB Test (QFT) Gold Plus 07/19/23 07/19/23 07/20/23 17:25 21:16 07:47 WBC RBC Hgb Hct MCHC RDW Plt Count Neutrophils # Lymphocytes # PT INR D-Dimer ABG pH ABG pCO2 ABG pO2 ABG HCO3 ABG Total CO2 ABG O2 Saturation Sodium Potassium Chloride Carbon Dioxide BUN Creatinine Glucose POC Glucose (mg/dL) 321 H 262 H 129 H Hemoglobin A1c Osmolality Calcium Phosphorus AST ALT Alkaline Phosphatase Troponin I Total Protein Albumin Procalcitonin Urine Protein Amorphous Sediment Urine Mucus Tacrolimus TB Test (QFT) Gold Plus 07/20/23 07/20/23 07/20/23 08:29 08:29 08:29 WBC 15.8 H RBC 2.89 L Hgb 8.3 L Hct 28.3 L MCHC 29.2 L RDW Plt Count Neutrophils # Lymphocytes # PT INR D-Dimer ABG pH ABG pCO2 ABG pO2 ABG HCO3 ABG Total CO2 ABG O2 Saturation Sodium 128 L Potassium Chloride Carbon Dioxide 17 L BUN 32 H Creatinine 1.81 H Glucose 121 H POC Glucose (mg/dL) Hemoglobin A1c 7.4 H Osmolality Calcium Phosphorus AST 147 H ALT 129 H Alkaline Phosphatase 629 H Troponin I Total Protein 5.1 L Albumin 2.4 L Procalcitonin Urine Protein Amorphous Sediment Urine Mucus Tacrolimus TB Test (QFT) Gold Plus 07/20/23 07/20/23 07/20/23 12:54 16:57 20:42 WBC RBC Hgb Hct MCHC RDW Plt Count Neutrophils # Lymphocytes # PT INR D-Dimer ABG pH ABG pCO2 ABG pO2 ABG HCO3 ABG Total CO2 ABG O2 Saturation Sodium Potassium Chloride Carbon Dioxide BUN Creatinine Glucose POC Glucose (mg/dL) 140 H 160 H 187 H Hemoglobin A1c Osmolality Calcium Phosphorus AST ALT Alkaline Phosphatase Troponin I Total Protein Albumin Procalcitonin Urine Protein Amorphous Sediment Urine Mucus Tacrolimus TB Test (QFT) Gold Plus 07/21/23 07/21/23 07/21/23 06:39 08:30 08:30 WBC 16.2 H RBC 2.91 L Hgb 8.4 L Hct 27.6 L MCHC 30.4 L RDW Plt Count Neutrophils # Lymphocytes # PT INR D-Dimer ABG pH ABG pCO2 ABG pO2 ABG HCO3 ABG Total CO2 ABG O2 Saturation Sodium 126 L Potassium 5.2 H Chloride Carbon Dioxide 18 L BUN 35 H Creatinine 1.63 H Glucose 161 H POC Glucose (mg/dL) 207 H Hemoglobin A1c Osmolality Calcium Phosphorus AST ALT Alkaline Phosphatase Troponin I Total Protein Albumin Procalcitonin Urine Protein Amorphous Sediment Urine Mucus Tacrolimus TB Test (QFT) Gold Plus 07/21/23 07/21/23 07/21/23 08:38 08:38 14:44 WBC RBC Hgb Hct MCHC RDW Plt Count Neutrophils # Lymphocytes # PT INR D-Dimer ABG pH 7.30 L ABG pCO2 ABG pO2 124 H ABG HCO3 18 L ABG Total CO2 ABG O2 Saturation 98.6 H Sodium Potassium Chloride Carbon Dioxide BUN Creatinine Glucose POC Glucose (mg/dL) Hemoglobin A1c Osmolality 304 H Calcium Phosphorus AST ALT Alkaline Phosphatase Troponin I Total Protein Albumin Procalcitonin 4.10 H Urine Protein Amorphous Sediment Urine Mucus Tacrolimus TB Test (QFT) Gold Plus 04/26/24 04/26/24 04/26/24 17:28 17:40 20:02 WBC RBC Hgb Hct MCHC RDW Plt Count Neutrophils # Lymphocytes # PT INR D-Dimer ABG pH ABG pCO2 ABG pO2 ABG HCO3 ABG Total CO2 ABG O2 Saturation Sodium Potassium Chloride Carbon Dioxide BUN Creatinine Glucose POC Glucose (mg/dL) 164 H 152 H Hemoglobin A1c Osmolality Calcium Phosphorus AST ALT Alkaline Phosphatase Troponin I Total Protein Albumin Procalcitonin Urine Protein Amorphous Sediment Urine Mucus Tacrolimus 22.4 H TB Test (QFT) Gold Plus 07/22/23 07/22/23 07/22/23 05:46 05:53 06:27 WBC RBC Hgb Hct MCHC RDW Plt Count Neutrophils # Lymphocytes # PT INR D-Dimer ABG pH ABG pCO2 ABG pO2 ABG HCO3 ABG Total CO2 ABG O2 Saturation Sodium Potassium Chloride Carbon Dioxide BUN Creatinine Glucose POC Glucose (mg/dL) 25 L 116 H Hemoglobin A1c Osmolality Calcium Phosphorus AST ALT Alkaline Phosphatase Troponin I Total Protein Albumin Procalcitonin Urine Protein Amorphous Sediment Urine Mucus Tacrolimus 22.7 H TB Test (QFT) Gold Plus 07/22/23 07/22/23 07/22/23 06:27 06:27 06:39 WBC 19.4 H RBC 2.84 L Hgb 8.2 L Hct 27.3 L MCHC 30.0 L RDW Plt Count Neutrophils # 16.7 H Lymphocytes # PT INR D-Dimer ABG pH 7.26 L ABG pCO2 ABG pO2 243 H ABG HCO3 19 L ABG Total CO2 ABG O2 Saturation 99.5 H Sodium 131 L Potassium 5.2 H Chloride Carbon Dioxide 17 L BUN 31 H Creatinine 1.46 H Glucose 120 H POC Glucose (mg/dL) Hemoglobin A1c Osmolality Calcium Phosphorus AST 138 H ALT 87 H Alkaline Phosphatase 620 H Troponin I Total Protein 4.9 L Albumin 2.3 L Procalcitonin Urine Protein Amorphous Sediment Urine Mucus Tacrolimus TB Test (QFT) Gold Plus 07/22/23 07/22/23 07/22/23 10:40 11:12 11:58 WBC RBC Hgb Hct MCHC RDW Plt Count Neutrophils # Lymphocytes # PT INR D-Dimer ABG pH ABG pCO2 ABG pO2 ABG HCO3 ABG Total CO2 ABG O2 Saturation Sodium Potassium Chloride Carbon Dioxide BUN Creatinine Glucose POC Glucose (mg/dL) 126 H 128 H Hemoglobin A1c Osmolality Calcium Phosphorus AST ALT Alkaline Phosphatase Troponin I Total Protein Albumin Procalcitonin Urine Protein 1+ H Amorphous Sediment Rare H Urine Mucus Rare H Tacrolimus TB Test (QFT) Gold Plus 07/22/23 07/22/23 07/22/23 14:15 16:06 17:11 WBC RBC Hgb Hct MCHC RDW Plt Count Neutrophils # Lymphocytes # PT INR D-Dimer ABG pH ABG pCO2 ABG pO2 ABG HCO3 ABG Total CO2 ABG O2 Saturation Sodium Potassium Chloride Carbon Dioxide BUN Creatinine Glucose POC Glucose (mg/dL) 148 H 187 H 189 H Hemoglobin A1c Osmolality Calcium Phosphorus AST ALT Alkaline Phosphatase Troponin I Total Protein Albumin Procalcitonin Urine Protein Amorphous Sediment Urine Mucus Tacrolimus TB Test (QFT) Gold Plus 07/22/23 07/22/23 07/23/23 20:57 23:43 04:13 WBC RBC Hgb Hct MCHC RDW Plt Count Neutrophils # Lymphocytes # PT INR D-Dimer ABG pH ABG pCO2 ABG pO2 ABG HCO3 ABG Total CO2 ABG O2 Saturation Sodium Potassium Chloride Carbon Dioxide BUN Creatinine Glucose POC Glucose (mg/dL) 173 H 173 H 190 H Hemoglobin A1c Osmolality Calcium Phosphorus AST ALT Alkaline Phosphatase Troponin I Total Protein Albumin Procalcitonin Urine Protein Amorphous Sediment Urine Mucus Tacrolimus TB Test (QFT) Gold Plus 07/23/23 07/23/23 07/23/23 04:40 04:40 05:28 WBC 13.1 H RBC 2.69 L Hgb 7.9 L Hct 25.4 L MCHC RDW Plt Count Neutrophils # 11.7 H Lymphocytes # 0.7 L PT INR D-Dimer ABG pH 7.31 L ABG pCO2 33 L ABG pO2 176 H ABG HCO3 17 L ABG Total CO2 18 L ABG O2 Saturation 99.0 H Sodium 127 L Potassium Chloride Carbon Dioxide 15 L BUN 32 H Creatinine 1.32 H Glucose 179 H POC Glucose (mg/dL) Hemoglobin A1c Osmolality Calcium 8.0 L Phosphorus AST ALT Alkaline Phosphatase Troponin I Total Protein Albumin Procalcitonin Urine Protein Amorphous Sediment Urine Mucus Tacrolimus TB Test (QFT) Gold Plus 07/23/23 07/23/23 07/23/23 07:34 11:24 16:23 WBC RBC Hgb Hct MCHC RDW Plt Count Neutrophils # Lymphocytes # PT INR D-Dimer ABG pH ABG pCO2 ABG pO2 ABG HCO3 ABG Total CO2 ABG O2 Saturation Sodium Potassium Chloride Carbon Dioxide BUN Creatinine Glucose POC Glucose (mg/dL) 185 H 201 H 224 H Hemoglobin A1c Osmolality Calcium Phosphorus AST ALT Alkaline Phosphatase Troponin I Total Protein Albumin Procalcitonin Urine Protein Amorphous Sediment Urine Mucus Tacrolimus TB Test (QFT) Gold Plus 07/23/23 07/24/23 07/24/23 20:08 00:55 04:22 WBC RBC Hgb Hct MCHC RDW Plt Count Neutrophils # Lymphocytes # PT INR D-Dimer ABG pH ABG pCO2 ABG pO2 ABG HCO3 ABG Total CO2 ABG O2 Saturation Sodium Potassium Chloride Carbon Dioxide BUN Creatinine Glucose POC Glucose (mg/dL) 276 H 296 H 306 H Hemoglobin A1c Osmolality Calcium Phosphorus AST ALT Alkaline Phosphatase Troponin I Total Protein Albumin Procalcitonin Urine Protein Amorphous Sediment Urine Mucus Tacrolimus TB Test (QFT) Gold Plus 07/24/23 07/24/23 07/24/23 04:38 04:38 04:38 WBC 15.2 H RBC 2.63 L Hgb 7.7 L Hct 25.0 L MCHC 30.7 L RDW Plt Count Neutrophils # 13.8 H Lymphocytes # 0.6 L PT 12.6 H INR 1.2 H D-Dimer ABG pH ABG pCO2 ABG pO2 ABG HCO3 ABG Total CO2 ABG O2 Saturation Sodium 126 L Potassium 5.2 H Chloride Carbon Dioxide 12 L BUN 42 H Creatinine 1.85 H Glucose 274 H POC Glucose (mg/dL) Hemoglobin A1c Osmolality Calcium 7.7 L Phosphorus AST ALT 52 H Alkaline Phosphatase 596 H Troponin I Total Protein 4.5 L Albumin 2.0 L Procalcitonin Urine Protein Amorphous Sediment Urine Mucus Tacrolimus TB Test (QFT) Gold Plus 07/24/23 07/24/23 07/24/23 04:57 07:07 10:28 WBC RBC Hgb Hct MCHC RDW Plt Count Neutrophils # Lymphocytes # PT INR D-Dimer ABG pH 7.30 L ABG pCO2 30 L ABG pO2 146 H ABG HCO3 15 L ABG Total CO2 16 L ABG O2 Saturation 98.9 H Sodium Potassium Chloride Carbon Dioxide BUN Creatinine Glucose POC Glucose (mg/dL) 296 H 259 H Hemoglobin A1c Osmolality Calcium Phosphorus AST ALT Alkaline Phosphatase Troponin I Total Protein Albumin Procalcitonin Urine Protein Amorphous Sediment Urine Mucus Tacrolimus TB Test (QFT) Gold Plus 07/24/23 07/24/23 07/24/23 12:17 17:08 17:18 WBC RBC Hgb Hct MCHC RDW Plt Count Neutrophils # Lymphocytes # PT INR D-Dimer ABG pH ABG pCO2 ABG pO2 ABG HCO3 ABG Total CO2 ABG O2 Saturation Sodium 126 L Potassium 5.3 H Chloride Carbon Dioxide 13 L BUN 44 H Creatinine 2.15 H Glucose 306 H POC Glucose (mg/dL) 264 H 341 H Hemoglobin A1c Osmolality Calcium 7.5 L Phosphorus AST ALT Alkaline Phosphatase Troponin I Total Protein Albumin Procalcitonin Urine Protein Amorphous Sediment Urine Mucus Tacrolimus TB Test (QFT) Gold Plus 07/24/23 07/24/23 07/25/23 19:40 23:41 00:10 WBC RBC Hgb Hct MCHC RDW Plt Count Neutrophils # Lymphocytes # PT INR D-Dimer ABG pH ABG pCO2 ABG pO2 ABG HCO3 ABG Total CO2 ABG O2 Saturation Sodium Potassium Chloride Carbon Dioxide BUN Creatinine Glucose POC Glucose (mg/dL) 372 H 278 H Hemoglobin A1c Osmolality Calcium Phosphorus AST ALT Alkaline Phosphatase Troponin I Total Protein Albumin Procalcitonin Urine Protein Amorphous Sediment Urine Mucus Tacrolimus TB Test (QFT) Gold Plus Indetermin A 07/25/23 07/25/23 07/25/23 03:17 03:17 04:02 WBC 16.2 H RBC 2.46 L Hgb 7.4 L Hct 23.5 L MCHC RDW 15.7 H Plt Count 136 L Neutrophils # 14.5 H Lymphocytes # 0.8 L PT INR D-Dimer ABG pH ABG pCO2 ABG pO2 ABG HCO3 ABG Total CO2 ABG O2 Saturation Sodium 126 L Potassium Chloride Carbon Dioxide 15 L BUN 46 H Creatinine 2.35 H Glucose 279 H POC Glucose (mg/dL) 307 H Hemoglobin A1c Osmolality Calcium 7.2 L Phosphorus 5.4 H AST 145 H ALT 65 H Alkaline Phosphatase 527 H Troponin I Total Protein 4.3 L Albumin 1.9 L Procalcitonin Urine Protein Amorphous Sediment Urine Mucus Tacrolimus TB Test (QFT) Gold Plus 07/25/23 07/25/23 07/25/23 05:05 08:18 11:16 WBC RBC Hgb Hct MCHC RDW Plt Count Neutrophils # Lymphocytes # PT INR D-Dimer ABG pH 7.33 L ABG pCO2 33 L ABG pO2 75 L ABG HCO3 18 L ABG Total CO2 ABG O2 Saturation Sodium Potassium Chloride Carbon Dioxide BUN Creatinine Glucose POC Glucose (mg/dL) 239 H Hemoglobin A1c Osmolality Calcium Phosphorus AST ALT Alkaline Phosphatase Troponin I 1.020 H* Total Protein Albumin Procalcitonin Urine Protein Amorphous Sediment Urine Mucus Tacrolimus TB Test (QFT) Gold Plus 07/25/23 07/25/23 07/25/23 11:16 12:56 15:07 WBC RBC Hgb Hct MCHC RDW Plt Count Neutrophils # Lymphocytes # PT INR D-Dimer ABG pH ABG pCO2 ABG pO2 ABG HCO3 ABG Total CO2 ABG O2 Saturation 97.9 H Sodium Potassium Chloride Carbon Dioxide BUN Creatinine Glucose POC Glucose (mg/dL) 157 H Hemoglobin A1c Osmolality Calcium Phosphorus AST ALT Alkaline Phosphatase Troponin I 1.310 H* Total Protein Albumin Procalcitonin Urine Protein Amorphous Sediment Urine Mucus Tacrolimus TB Test (QFT) Gold Plus 07/25/23 07/25/23 07/26/23 17:31 20:09 00:18 WBC RBC Hgb Hct MCHC RDW Plt Count Neutrophils # Lymphocytes # PT INR D-Dimer ABG pH ABG pCO2 ABG pO2 ABG HCO3 ABG Total CO2 ABG O2 Saturation Sodium Potassium Chloride Carbon Dioxide BUN Creatinine Glucose POC Glucose (mg/dL) 196 H 146 H 241 H Hemoglobin A1c Osmolality Calcium Phosphorus AST ALT Alkaline Phosphatase Troponin I Total Protein Albumin Procalcitonin Urine Protein Amorphous Sediment Urine Mucus Tacrolimus TB Test (QFT) Gold Plus 07/26/23 07/26/23 07/26/23 04:35 04:35 04:35 WBC 24.5 H RBC 2.47 L Hgb 7.1 L Hct 23.0 L MCHC RDW Plt Count Neutrophils # Lymphocytes # PT 12.7 H INR 1.2 H D-Dimer ABG pH ABG pCO2 ABG pO2 ABG HCO3 ABG Total CO2 ABG O2 Saturation Sodium 126 L Potassium 6.1 H* Chloride 96 L Carbon Dioxide 21 L BUN 62 H Creatinine 2.81 H Glucose 245 H POC Glucose (mg/dL) Hemoglobin A1c Osmolality Calcium 7.0 L Phosphorus AST ALT Alkaline Phosphatase Troponin I Total Protein Albumin Procalcitonin Urine Protein Amorphous Sediment Urine Mucus Tacrolimus TB Test (QFT) Gold Plus 07/26/23 07/26/23 07/26/23 04:35 08:43 09:40 WBC RBC Hgb Hct MCHC RDW Plt Count Neutrophils # Lymphocytes # PT INR D-Dimer ABG pH ABG pCO2 ABG pO2 ABG HCO3 ABG Total CO2 ABG O2 Saturation Sodium 129 L Potassium 5.6 H Chloride 96 L Carbon Dioxide BUN 63 H Creatinine 2.81 H Glucose 267 H POC Glucose (mg/dL) 275 H 278 H Hemoglobin A1c Osmolality Calcium 7.4 L Phosphorus AST ALT Alkaline Phosphatase Troponin I Total Protein Albumin Procalcitonin Urine Protein Amorphous Sediment Urine Mucus Tacrolimus TB Test (QFT) Gold Plus 07/26/23 11:34 WBC RBC Hgb Hct MCHC RDW Plt Count Neutrophils # Lymphocytes # PT INR D-Dimer ABG pH ABG pCO2 ABG pO2 ABG HCO3 ABG Total CO2 ABG O2 Saturation Sodium Potassium Chloride Carbon Dioxide BUN Creatinine Glucose POC Glucose (mg/dL) 245 H Hemoglobin A1c Osmolality Calcium Phosphorus AST ALT Alkaline Phosphatase Troponin I Total Protein Albumin Procalcitonin Urine Protein Amorphous Sediment Urine Mucus Tacrolimus TB Test (QFT) Gold Plus Assessment and Plan Assessment: * Status postcardiac arrest 07/22/2023 with downtime of about 7 minutes. Patient also had hypoglycemia at that time with blood sugar 25. 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 * Abnormal focal twitching right facial region, rule out focal seizure. EEG did not reveal any epileptiform activity. * Possible metastatic cancer. Unknown primary yet. * Hyponatremia * Hyperkalemia * Chronic renal failure * Elevated liver enzymes * Anemia * Elevated troponin. * History of kidney and liver transplant in 2016 * History of polysubstance abuse, hepatitis C, treated. * Hypertension * Hyperlipidemia Plan: * Stat EEG was performed today. It was severely abnormal due to presence of periods of suppression, intermixed with some low amplitude 2 to 3 Hz delta slowing suggestive of generalized cerebral dysfunction as can be seen with anoxic, or severe toxic metabolic encephalopathy or related to diffuse structural brain abnormality. Clinical correlation is recommended. No epileptiform activity was seen. No electrographic seizure was recorded. * Clinically, patient is having some intermittent right facial twitching, particularly evoked with noxious stimulus. Continue Keppra for seizure prophylaxis. * Patient is day 4 postcardiac arrest, and is still comatose with GCS of 3. * Patient undergoing CT scan of the head later this afternoon. * Patient had undergone ultrasound-guided liver biopsy today. Being worked up for possible metastatic cancer. * Other medical management as per IM and other specialties involved. * Discussed with nursing staff and family members in detail. * We will follow. Thank you for the consult. Addendum: CT scan of the head revealed a very large watershed ischemic stroke between left NICO and left MCA territory involving the frontal, parietal and occipital lobes. No mass effect or midline shift. No hemorrhage. Patient is [id number], therefore the stroke is involving the dominant hemisphere. This may have significant implications with right hemiparesis and probable significant speech, and memory deficits. Based upon this large stroke, recent cardiac arrest, and possible suspected metastatic cancer, the prognosis appears poor for meaningful recovery. Discussed with patient's and nursing staff in detail. Time with Patient: Greater than 30
--- NOTE | 2023-07-26 15:44 | P.PN ---
Subjective Progress Note Date: 07/26/23 (delayed charting seen at 0930) Patient is a 59-year-old male with BPH, carotid stenosis, cirrhosis, diabetes, end-stage renal disease status post renal and liver transplant no longer requiring hemodialysis, glaucoma, hypertension, and multiple other comorbid conditions who presented to the emergency department with complaints of shortness of breath. Patient had recently been at an outside hospital for abdominal and back pain they are workup revealed lesions in his liver, kidney, and lung and he was requiring Dilaudid [id number] for pain. He was discharged on a fentanyl patch with a PET scan scheduled for July with Dr. Wise. In the emergency department here he was noted to have a white blood cell count of 16, sodium 124, BUN 30, creatinine 1.76 (baseline creatinine 2), AST 241, ALT 153, alkaline phosphatase 669, and a D-dimer of 18.53. Patient was admitted with concerns for possible pulmonary embolism and he was started on Lovenox. He subsequently underwent a ventilation/perfusion scan which demonstrated low probability for pulmonary embolism. He underwent echocardio gram which demonstrated ejection fraction of 55 to 60% with mild aortic stenosis. Renal and bladder ultrasound demonstrated hepatic metastatic disease with transplanted kidneys and atrophic [place] kidneys. Oncology was consulted. They recommended continuing pain control considering additional imaging and IR consultation. Patient was noted to have change in mentation and therefore underwent a CT of the head which demonstrated no acute intracranial process. He then became hypoxic requiring high flow nasal cannula and ultimately BiPAP. Pulmonary was consulted and added bronchodilators. On the morning of 07/21 patient was undergoing a BiPAP weaning trial when he lost pulses and CPR was ini tiated. He had ROSC after 2 rounds of epinephrine however his mental status did not improve and he was subsequently intubated and transferred to the ICU. He required norepinephrine for less than 24 hours. Infectious disease was consulted he recommended adding cefepime while awaiting cultures to finalize. Nephrology was consulted who recommended holding CellCept and continuing tacrolimus and prednisone. His Tacro was then held. Patient became bradycardiac overnight on 07/24 and cardio was consulted and the patient was started on a dobutamine gtt. Patient developed seizures early this morning and was given Ativan from critical care with resolution of seizure-like activity. Neurology was consulted. CT brain was ordered and patient was loaded with Keppra. He underwent liver biopsy on 07/26/23 Patient seen and examined at bedside. He remains sedated on vent Vital signs reviewed General: Nontoxic, no distress, appears at stated age Cardiovascular: S1S2 reg, no murmur, 1+ edema b/l LE Lungs: Course bilateral, no rhonchi, no rales, no accessory muscle use Abdominal: Soft, nontender to palpation, no guarding Ext: No gross muscle atrophy, no edema b/l lower extremities, no contractures Neuro: sedated on vent Psych: Sedated on vent Assessment/Plan: S/P Cardiac arrest Multiple lung and liver nodules, probable malignancy vs infectious Intractable pain likely related to malignancy Acute hypoxic respiratory failure Transaminitis suspect secondary to liver lesions versus hepatitis C -Case discussed with Dr. Stanley. Concerns would be for anoxic encephalopathy versus infection or malignancy involving the nervous system. -Patient was able to undergo liver biopsy with interventional radiology. Case discussed with Dr. Dobbs who states he should have preliminary results by noon tomorrow to determine if this could appear to be inflammatory versus infe ctious versus neoplastic etiology. Head CT -Shock, probable sepsis. Was on and off levo now requiring dopamine for complete heart bloack. - Await further oncology recs - Await further ID recs -Cefepime 2 g IV piggyback twice daily D # 5 - Solucortef 100 mg IVP q 8 hours -- increased as it is now the only immunosupressant the patient is receiving. -Hold Lipitor due to elevated liver enzymes -Fentanyl 75 mcg patch has been continued. Will need to monitor in case this needs to be removed to help with mentation for extubation. Will leave in place now due to patient's history of uncontrolled pain -DuoNebs every 4 hours and as needed Seizure-like activity Left parietal and occipital lobe changes Acute encephalopathy, possible anoxic -Await neurology consultation -Ideally patient would undergo MRI of able to come off of vent -EEG is severely abnormal due to generalized background suppression suggestive of generalized cerebral dysfunction -Keppra 500 mg every 12 hours Episodes of complete heart block with unclear etiology - Off coreg -Cardiology note reviewed: Continue supportive care and IV dopamine - On dopamine at 5 mcg - repeat echo with EF 65-60% Chronic kidney disease stage III status post renal and liver transplant Hyponatremia, possible SIADH Metabolic acidosis Hyperkalemia -Status post Lokelma and temporizing measures with albuterol, bicarb, insulin/dextrose -Repeat at 945 -Nephrology note reviewed: Continue with IV bicarb, increase hydrocortisone, continue to hold tacro -0.45 saline with tubes of bicarb at 100 cc/h -Continue to hold tacrolimus, cellcept, and prednisone 2 mg daily -Continue to follow renal function Normocytic anemia -Follow CBC -No indication for transfusion at this time Diabetes mellitus type 2 with episodes of hypoglycemia - NovoLog 2 units every 6 hours in addition to sliding scale every 6 hours -Off of dextrose containing solution, decrease levemir to 13 untis once daily -Follow blood sugars Chronic conditions BPH Carotid stenosis Hepatitis C Hypertension Dyslipidemia Osteoarthritis Vitamin D deficiency Pulmonary embolism ruled out Poor over all prognosis Imaging: CT head-Acute infarcts along the left parietal and occipital lobes Data Review: Labs reviewed include CBC and basic metabolic profile which are remarkable for white blood cell count 24.5, hemoglobin 7.1, sodium 126, potassium 6.1, BUN 62, creatinine 2.81, glucose of 245 DVT prophylaxis: Lovenox Anticipated discharge date: Pending Clinical Course Anticipated discharge place: Pending Clinical Course This dictation was prepared using [employer] voice recognition software. Though every attempt is made to correct errors during dictation some may still exist. Objective - Vital Signs Vital signs: Vital Signs Temp 98 F 07/26/23 08:00 Pulse 69 07/26/23 15:00 Resp 20 07/26/23 15:00 BP 144/60 07/26/23 15:00 Pulse Ox 97 07/26/23 15:00 FiO2 40 07/26/23 12:00 Intake & Output 07/25/23 07/26/23 07/26/23 18:59 06:59 18:59 Intake Total 9088.848 4393.280 1719.550 Output Total 90 141 125 Balance 6633.959 2441.280 1594.550 Weight 95.7 kg 95.7 kg Intake: IV 1256 1416 287 0.9 120 80 60 Calcium Gluconate in NaCl 100 2 gm In Saline 1 100ml. bag @ 400 mls/hr IVPB ONCE ONE Rx#:[id number] Cefepime 2 gm In Sodium 100 100 Chloride 0.9% 100 ml @ 25 mls/hr IVPB Q12HR MARCEL Rx #:[id number] Dextrose 5% in Water 1, 1100 000 ml @ 100 mls/hr IV . [id number] MARCEL with Sodium Bicarb (1 Meq/ml) 150 ml Rx#:[id number] Sodium Chloride 0.45% 1, 1100 100 000 ml @ 100 mls/hr IV . [id number] MARCEL with Sodium Bicarb (1 Meq/ml) 150 ml Rx#:[id number] pressure bag 36 36 27 Intake, IV Titration 146.511 126.280 952.550 Amount Cefepime 2 gm In Sodium 100 Chloride 0.9% 100 ml @ 25 mls/hr IVPB Q12HR MARCEL Rx #:[id number] Dextrose/Water 1 250ml. 66.4 bag @ 5 MCG/KG/MIN 8.334 mls/hr IV .Q24H MARCEL with DOPamine DRIP 800 mg Rx#: [id number] Sodium Chloride 0.45 % 1, 800 000 ml @ 100 mls/hr IV . Q11H MARCEL with Sodium Bicarb (1 Meq/ml) 100 ml Rx#:[id number] propofoL 1,000 mg In 46.511 126.280 86.150 Empty Bag 1 bag @ 15 MCG/ KG/MIN 7.267 mls/hr IV . [id number] MARCEL Rx#:[id number] Tube Feeding 396 528 380 Other 180 100 Output: Urine 90 141 125 Other: Voiding Method Indwelling Catheter Indwelling Catheter Indwelling Catheter # Bowel Movements 1 ABP, PAP, CO, CI - Last Documented Arterial Blood Pressure 149/51 - Labs CBC & Chem 7: 07/26/23 04:35 07/26/23 09:40 Labs: Abnormal Lab Results - Last 24 Hours (Table) 07/25/23 07/25/23 07/25/23 Range/Units 00:10 15:07 17:31 WBC (3.8-10.6) k/uL RBC (4.30-5.90) m/uL Hgb (13.0-17.5) gm/dL Hct (39.0-53.0) % PT (10.0-12.5) sec INR (<1.2) Sodium (137-145) mmol/L Potassium (3.5-5.1) mmol/L Chloride (98-107) mmol/L Carbon Dioxide (22-30) mmol/L BUN (9-20) mg/dL Creatinine (0.66-1.25) mg/dL Glucose (74-99) mg/dL POC Glucose (mg/dL) 196 H (70-110) mg/dL Calcium (8.4-10.2) mg/dL Troponin I 1.310 H* (0.000-0.034) ng/mL TB Test (QFT) Gold Plus Indetermin A (Negative) 07/25/23 07/26/23 07/26/23 Range/Units 20:09 00:18 04:35 WBC (3.8-10.6) k/uL RBC (4.30-5.90) m/uL Hgb (13.0-17.5) gm/dL Hct (39.0-53.0) % PT (10.0-12.5) sec INR (<1.2) Sodium 126 L (137-145) mmol/L Potassium 6.1 H* (3.5-5.1) mmol/L Chloride 96 L (98-107) mmol/L Carbon Dioxide 21 L (22-30) mmol/L BUN 62 H (9-20) mg/dL Creatinine 2.81 H (0.66-1.25) mg/dL Glucose 245 H (74-99) mg/dL POC Glucose (mg/dL) 146 H 241 H (70-110) mg/dL Calcium 7.0 L (8.4-10.2) mg/dL Troponin I (0.000-0.034) ng/mL TB Test (QFT) Gold Plus (Negative) 07/26/23 07/26/23 07/26/23 Range/Units 04:35 04:35 04:35 WBC 24.5 H (3.8-10.6) k/uL RBC 2.47 L (4.30-5.90) m/uL Hgb 7.1 L (13.0-17.5) gm/dL Hct 23.0 L (39.0-53.0) % PT 12.7 H (10.0-12.5) sec INR 1.2 H (<1.2) Sodium (137-145) mmol/L Potassium (3.5-5.1) mmol/L Chloride (98-107) mmol/L Carbon Dioxide (22-30) mmol/L BUN (9-20) mg/dL Creatinine (0.66-1.25) mg/dL Glucose (74-99) mg/dL POC Glucose (mg/dL) 275 H (70-110) mg/dL Calcium (8.4-10.2) mg/dL Troponin I (0.000-0.034) ng/mL TB Test (QFT) Gold Plus (Negative) 07/26/23 07/26/23 07/26/23 Range/Units 08:43 09:40 11:34 WBC (3.8-10.6) k/uL RBC (4.30-5.90) m/uL Hgb (13.0-17.5) gm/dL Hct (39.0-53.0) % PT (10.0-12.5) sec INR (<1.2) Sodium 129 L (137-145) mmol/L Potassium 5.6 H (3.5-5.1) mmol/L Chloride 96 L (98-107) mmol/L Carbon Dioxide (22-30) mmol/L BUN 63 H (9-20) mg/dL Creatinine 2.81 H (0.66-1.25) mg/dL Glucose 267 H (74-99) mg/dL POC Glucose (mg/dL) 278 H 245 H (70-110) mg/dL Calcium 7.4 L (8.4-10.2) mg/dL Troponin I (0.000-0.034) ng/mL TB Test (QFT) Gold Plus (Negative) Microbiology - Last 24 Hours (Table) 07/22/23 10:45 Blood Culture - Preliminary Blood 07/22/23 08:15 Blood Culture - Preliminary Blood
[2023-07-26 16:20] LABS: Glucose,Whole Blood 239 mg/dL (70-110)
[2023-07-26] MEDS: HYDROCORTISONE SUCCINATE 100 MG/2 ML VIAL IV SCH (16:58)
[2023-07-26 18:30] LABS: African American GFR (CKD) 23 (>60 ml/min/1.73 sqM); Anion Gap 9 mmol/L; Blood Urea Nitrogen 68 mg/dL (9-20); Calcium 7.3 mg/dL (8.4-10.2); Carbon Dioxide 23 mmol/L (22-30); Chloride 96 mmol/L (98-107); Glucose 239 mg/dL (74-99); Non-African American GFR(CKD) 20 (>60 ml/min/1.73 sqM); Potassium 5.4 mmol/L (3.5-5.1); Sodium 128 mmol/L (137-145)
[2023-07-26 20:15] LABS: Glucose,Whole Blood 239 mg/dL (70-110)
[2023-07-26] MEDS: CEFEPIME 1 GM in SODIUM CHLORIDE 0.9% 50 ML IVPB SCH (21:12)
[2023-07-27 00:26] LABS: Glucose,Whole Blood 252 mg/dL (70-110)
[2023-07-27] MEDS: hydrALAZINE HCL 25 MG TAB PO STA (04:33)
[2023-07-27 04:40] LABS: Glucose,Whole Blood 255 mg/dL (70-110)
[2023-07-27 04:58] LABS: HCT 23.1 % (39.0-53.0); HGB 7.2 gm/dL (13.0-17.5); Hypochromasia Slight; MCH 28.9 pg (25.0-35.0); MCV 93.5 fL (80.0-100.0); Mean Platelet Volume 9.3; Platelet Count 133 k/uL (150-450); RBC 2.47 m/uL (4.30-5.90); RDW 15.8 % (11.5-15.5); WBC 21.6 k/uL (3.8-10.6)
[2023-07-27 05:47] LABS: ALT 213 U/L (4-49); AST 599 U/L (17-59); African American GFR (CKD) 23 (>60 ml/min/1.73 sqM); Albumin 2.1 g/dL (3.5-5.0); Anion Gap 12 mmol/L; Blood Urea Nitrogen 74 mg/dL (9-20); Calcium 7.4 mg/dL (8.4-10.2); Carbon Dioxide 23 mmol/L (22-30); Chloride 94 mmol/L (98-107); Glucose 231 mg/dL (74-99); Magnesium 2.2 mg/dL (1.6-2.3); Non-African American GFR(CKD) 20 (>60 ml/min/1.73 sqM); Potassium 5.2 mmol/L (3.5-5.1); Sodium 129 mmol/L (137-145); Total Protein 4.7 g/dL (6.3-8.2)
[2023-07-27 05:49] LABS: Alkaline Phosphatase 634 U/L (38-126)
[2023-07-27 06:22] LABS: ABG Base Excess -0.6 mmol/L; ABG HCO3 24 mmol/L (21-25); ABG Oxygen Saturation 98.4 % (94-97); ABG PCO2 39 mmHg (35-45); ABG PO2 111 mmHg (83-108); ABG TCO2 25 mmol/L (19-24); Allen Test Performed? Yes
[2023-07-27] MEDS: INSULIN DETEMIR (LEVEMIR) 100 UNIT/ML SYR SQ SCH (06:31)
--- NOTE | 2023-07-27 06:45 | P.PN ---
Subjective Progress Note Date: 07/27/23 Principal diagnosis: Cardiopulmonary arrest. Pulmonary consult dated July 21, 2023. 72-year-old black male, who [facility], is seen in the emergency department, on July 18, for shortness of breath. The patient apparently has been having shortness of breath, since being discharged from [facility]. Recently, the patient was started on a fentanyl patch for back pain, but denies all other medications. He apparently was admitted at the other hospital, for total of 4 days according to his , and was found to have some lesions on his liver and lung. The patient is apparently awaiting an outpatient PET scan. He did see one of the cancer doctors at the other facility. Currently, the patient is seen in ER room 28. The patient is currently on BiPAP, with settings of 12/6 and 28%. According to his he has a history of liver and kidney transplantation. He is getting saline at 75 cc an hour. He apparently had a chest x-ray that was interpreted as normal, and a VQ scan that was interpreted as being very low probability for pulmonary embolism. He does not use oxygen at home. He quit smoking 43 years ago. He had a blood gas showing a pO2 of 124, pCO2 of 35, and a pH of 7.30. This is consistent with metabolic acidosis. His other medical history includes gastroesophageal reflux disease, hypertension, hyperlipidemia, liver kidney transplant at [facility] in 2016, diabetes, and gout. The patient is a former smoker, having quit some 43 years ago as mentioned above. Current labs include a white count of 16.2, hemoglobin 8.4, hematocrit 27.6, and a platelet count of 268,000. Sodium 126, potassium 5.2, chlorides 102, CO2 18, BUN 35, and creatinine 1.63. Calcium is 8.5. Glucose is 161. The patient has a nonanion gap metabolic acidosis, likely from his renal insufficiency/failure. The patient has a couple different chest x- rays, which did not show acute cardiopulmonary disease. Progress note dated July 22, 2023. The patient was seen yesterday in consultation, when he was in the emergency department. The patient was admitted to the floor. Sometime early this morning, the patient developed bradycardia, and pulseless electrical activity. At that time, the patient's blood glucose was only 25. The patient was intubated, for respiratory failure, transferred to the intensive care unit. He is currently in the ICU, on the ventilator. Settings include volume assist- control, rate 20, tidal volume 450, FiO2 50%, PEEP of 5. Blood gases show pO2 of 243, pCO2 42, and a pH of 7.25. The patient is getting dextrose with half- normal saline at 75 cc an hour, propofol at 50 mcg/kg/min. He remains on Levaquin. His procalcitonin level was elevated at 4.10. Current labs include a white count 19.4, hemoglobin 8.2, hematocrit 27.3, and a platelet count of 262,000. Sodium 131, potassium 5.2, chlorides 104, CO2 17, anion gap 10, BUN 31, and creatinine 1.46. Glucose is 120. AST is 138. ALT is 87. Alkaline phosphatase is 620. Procalcitonin level was 4.10. He tested negative for influenza, RSV, and coronavirus. Chest x-ray shows the tip of the central venous catheter, at the junction of the superior vena cava and right atrium. Chest x-ray also suggest some pulmonary vascular congestion. Progress note dated July 23, 2023. 72-year-old black male, seen in follow-up, room 259. The patient remains on the mechanical ventilator. Current vent settings include volume assist-control, rate 20, tidal volume 450, FiO2 50%. PEEP of 5. Blood gases show pO2 176, pCO2 33, pH is 7.31. The patient is getting saline at 75 cc an hour, propofol at 40 mcg/kg/min. Currently, norepinephrine is on hold. He is getting vital AF at 30, with a goal of 42. He continues on cefepime. We did attempt a daily interruption of sedation, but he did poorly and, we could not do a spontaneous breathing trial. He was placed back on the ventilator. Current labs include a white count of 13.1, hemoglobin 7.9, hematocrit 25.4, and a normal platelet c ount. Sodium 127, potassium 5, chlorides 106, CO2 15, BUN 32, creatinine 1.32. Glucose is 185. Calcium is 8. Chest x-ray shows a properly positioned endotracheal tube. In addition, there may be an infiltrate in the right lung, with volume loss in the right lung, and a small right-sided pleural effusion. On today's evaluation of 07/24/2023, the patient is being seen for a follow-up. Patient cardiac arrest and the patient remains intubated on mechanical ventilator. Noted the patient was intubated on 07/22/2023 following cardiac arrest that followed an episode of bradycardia followed by pulseless electrical activity. During that time, the patient was also hypoglycemic. Noted the patient is a very complicated history of liver and kidney transplant and the patient has undergone his transportation back in 2016 at [facility]. The patient has been maintained on immunosuppressive agents with a combination of CellCept and Prograf and low-dose prednisone on an outpatient ba sis. Note that the CellCept is currently on hold and the patient remains on a combination of Prograf and low-dose prednisone. On a separate note, a CAT scan of the chest that was done also on this patient at [facility] showed extensive bilateral pulmonary nodules which raise the possibility of underlying metastatic disease/infection/post transplant lymphoproliferative disorder. If final diagnosis not been made at this point in time. In fact, the patient is currently on a mechanical ventilator, and is afebrile. He is on assist-control mode of mechanical ventilation at rate of 20, tidal volume of 450, FiO2 is at 40% with a PEEP of 5. The blood gas showing a pH of 7.3 with a pCO2 of 30 and pO2 of 146. Peak airway pressure is around 15. IV fluids are currently at KVO. The patient is currently on vital AF at rate of 42 to cc an hour for enteral feeding and nutritional support. He is currently on no pressors. The WBC count of 15.2 with a hemoglobin of 7.7 and a platelet count of 165. The serum bicarb is at 12 with a sodium level of 126 and a potassium level of 5.2. BUN is at 42 with a creatinine of 1.8. LFTs remain abnormal with an AST of 58, ALT of 52 and an alkaline phosphatase of 596. Serum protein is at 2.0. The blood cultures are still pending, sputum culture also pending. The patient is currently hemodynamically stable on no pressors. He is known to have hypertension hyperlipidemia and diabetes mellitus type 2 and history of gout. Has echocardiogram that was done on 07/20/2023 showed preserved LV function without any significant valvular abnormalities and mild pulmonary hypertension was also seen. CAT scan of the brain done postarrest showed no acute intracranial process. Ultrasound of the abdomen and the bladder showed heterogeneous liver lesions the significance of which was not known. Possibility of hepatic metastasis cannot be completely ruled out. Postoperative dilatation of the common bile duct was seen and the transplanted kidney was noted. The patient's original kidneys are quite atrophic at this point in time. His procalcitonin level was 4.0 at the time of admission. On today's evaluation of 07/25/2023, the patient is being seen for a follow-up. Patient remains sedated on propofol which is running at 30 mcg/kg/min. Events from yesterday evening was noted. The patient had high degree AV block and she had Mobitz type II and episodes of third-degree AV block. Based on that, cardiology has been involved and the patient was started on dopamine at 5 mcg/kg/min. His current rhythm is sinus bradycardia. Note that the patient's echocardiogram showed a preserved LV function. 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 He remains intubated on mechanical ventilator. He is calm and comfortable. He is on assist-control mode at rate of 20, tidal volume of 450, FiO2 of 40% with a PEEP of 5. Blood gas showed a pH of 7.33 with a pCO2 of 33 and pO2 of 75. The chest x-ray from today shows no significant interval change and some atelectasis and small effusion in the right lung base. Orotracheal tube remains in a good location. CAT scan of the abdomen and pelvis was also done yesterday and it showed mid to distal small bowel loops being compressed. Mild partial small bowel obstruction/ileus cannot be completely excluded. The patient has extensive metastases to his liver along with ascites within the pelvis. There is also a loculated pleural effusion in the right lung base. Empyema is felt to be less likely at this point in time based on the clinical presentation. The patient is currently has a white cell count of 16.2 with a hemoglobin 7.4 and a platelet count of 136. The sodium is at 126, potassium is at 4.9 and serum bicarb is at 15 with a BUN of 46 and a creatinine of 2.35. LFTs show an AST of 145, ALT of 65, alkaline phosphatase of 527, and total protein of 4.3 with an albumin of 1.9. The Prograf level was 14.7. Nephrology on the case. Cardiology has also been consulted regarding the high degree AV block. Meanwhile, the patient is taking enteral feeding for nutritional support and the patient is on vital AF At the rate of 44 cc an hour. On today's evaluation of 07/26/2023, the patient is being seen for a follow-up. The patient this morning is having jerking movement in his right upper extremity. This is very automatic and repetitive. Seizure was considered. Noted the patient is still on propofol running at 20 mcg/kg/min. Cardiac rhythm is first-degree AV block without any significant bradycardia arrhythmias noted yesterday the patient remains on dopamine at 5 mcg/kg/min. The patient is also on a bicarb infusion with a total of 2 ampoules of sodium bicarb and half-normal saline at rate of 100 cc an hour. He remains on mechanical ventilator settings of 20, tidal volume of 450, FiO2 40% with a PEEP of 5. Blood gas showed pH of 7 .37 with a pCO2 of 79 and pO2 of 86. Initial CAT scan of the brain was negative. Repeat CAT scan of the brain will be needed specially there is underlying suspected seizure activity. The blood work from today shows a sodium level of 129 and a potassium level of 6.1. The patient was treated accordingly with Lokelma and the patient was also given D50 insulin and she is already on a bicarb infusion. She was also given calcium. Repeat potassium was down to 5.6. At the same time, the patient's BUN is at 63 with a creatinine of 2.81. Bicarb level is at 22. Blood sugars at 245 and the patient on Levemir insulin 13 units along with a sliding scale coverage. White cell count of 24.5 with a hemoglobin of 7.1. Repeat chest x-ray was done today and the patient was found to have the ET tube being around 3 cm above the divine. Smaller lung volumes and generalized haziness along with some atelectatic changes. All of the lines are in good location. The patient is afebrile at this point in time. Progress note dated July 27, 2023. The patient is seen today in room 259. He remains on mechanical ventilator. He is on volume assist-control, rate 20, tidal volume 450, FiO2 40%, and PEEP of 5. Blood gases are currently pending. The patient is getting saline at 10 cc an hour, 2 ampoules of sodium bicarbonate and half-normal saline at 100 cc an hour, propofol at 20 mcg/kg/min, dopamine at 5 mcg/kg/min, and Nepro at 37 cc an hour, which is goal. Unfortunately, CT scan revealed a large left parietal/occipital infarct. CODE STATUS has been addressed with the family, but the patient does remain a full code at this time. Current labs include a white count 21.6, hemoglobin 7.2, hematocrit 23.1, and a platelet count of 133,000. Sodium 129, potassium 5.2, chloride 94, CO2 23, BUN 74, creatinine 2.95. AST is 599. ALT is 213. Albumin is 2.1. Blood gases show pO2 111, pCO2 of 39, pH is 7.40. Microbiologic sampling thus far is negative. Chest x-ray shows a endotracheal tube position above the tracheal divine. There is some right basilar atelectasis or infiltrate. CT scan of the brain done yesterday reveals acute infarcts along the left parietal and left occipital lobes. Objective - Vital Signs Vital signs: Vital Signs Temp 97.6 F 07/27/23 04:00 Pulse 65 07/27/23 05:00 Resp 20 07/27/23 05:00 BP 139/62 07/27/23 05:00 Pulse Ox 98 07/27/23 05:00 FiO2 40 07/27/23 04:26 Intake & Output 07/26/23 07/26/23 07/27/23 06:59 18:59 06:59 Intake Total 2250.280 2224.450 1280.439 Output Total 141 200 346 Balance 2109.280 2024.450 934.439 Weight 95.7 kg 95.7 kg 93.4 kg Intake: IV 1416 326 526.0 0.9 80 90 110 Calcium Gluconate in NaCl 100 2 gm In Saline 1 100ml. bag @ 400 mls/hr IVPB ONCE ONE Rx#:[id number] Cefepime 2 gm In Sodium 100 100 Chloride 0.9% 100 ml @ 25 mls/hr IVPB Q12HR MARCEL Rx #:[id number] Dextrose/Water 1 250ml. 83.0 bag @ 5 MCG/KG/MIN 8.334 mls/hr IV .Q24H MARCEL with DOPamine DRIP 800 mg Rx#: [id number] Sodium Chloride 0.45% 1, 1100 100 300 000 ml @ 100 mls/hr IV . [id number] MARCEL with Sodium Bicarb (1 Meq/ml) 150 ml Rx#:[id number] pressure bag 36 36 33 Intake, IV Titration 139.614 2008.450 197.439 Amount Dextrose/Water 1 250ml. 91.3 8.3 bag @ 5 MCG/KG/MIN 8.334 mls/hr IV .Q24H MARCEL with DOPamine DRIP 800 mg Rx#: [id number] Sodium Chloride 0.45 % 1, 1100 100 000 ml @ 100 mls/hr IV . Q11H MARCEL with Sodium Bicarb (1 Meq/ml) 100 ml Rx#:[id number] propofoL 1,000 mg In 126.280 86.150 89.139 Empty Bag 1 bag @ 15 MCG/ KG/MIN 7.267 mls/hr IV . [id number] MARCEL Rx#:[id number] Tube Feeding 528 491 407 Other 180 130 150 Output: Urine 141 200 346 Other: Voiding Method Indwelling Catheter Indwelling Catheter Indwelling Catheter # Bowel Movements 1 ABP, PAP, CO, CI - Last Documented Arterial Blood Pressure 167/60 - Exam No acute distress, intubated, and sedated. HEENT examination is grossly unremarkable. Neck supple. Full range of motion. No adenopathy thyromegaly or neck vein distention. Cardiovascular examination reveals regular rhythm rate. S1-S2 normal. No S3 or S4. No discernible murmur noted. Heart sounds are distant. Heart rate 65 bpm. Lungs reveal clear breath sounds. Breath sounds are equal bilaterally. No adventitious lung sounds including wheezes rhonchi or crackles. Saturations are 98 %. Abdomen soft bowel, sounds are heard. No masses or tenderness. Extremities are intact. No cyanosis clubbing or edema. Skin is without rash or lesion. Neurologic examination cannot be assessed at this time. - Labs CBC & Chem 7: 07/27/23 04:39 07/27/23 04:39 Labs: Abnormal Lab Results - Last 24 Hours (Table) 07/25/23 07/26/23 07/26/23 Range/Units 00:10 08:43 09:40 WBC (3.8-10.6) k/uL RBC (4.30-5.90) m/uL Hgb (13.0-17.5) gm/dL Hct (39.0-53.0) % RDW (11.5-15.5) % Plt Count (150-450) k/uL ABG pO2 (83-108) mmHg ABG Total CO2 (19-24) mmol/L ABG O2 Saturation (94-97) % Sodium (137-145) mmol/L Potassium (3.5-5.1) mmol/L Chloride (98-107) mmol/L BUN (9-20) mg/dL Creatinine (0.66-1.25) mg/dL Glucose (74-99) mg/dL POC Glucose (mg/dL) 278 H (70-110) mg/dL Calcium (8.4-10.2) mg/dL Phosphorus (2.5-4.5) mg/dL AST (17-59) U/L ALT (4-49) U/L Alkaline Phosphatase (38-126) U/L Total Protein (6.3-8.2) g/dL Albumin (3.5-5.0) g/dL Carcinoembryonic Ag >4500.0 H (0.0-4.9) ng/mL CA 19-9 Antigen (0.0-34.9) U/mL TB Test (QFT) Gold Plus Indetermin A (Negative) 07/26/23 07/26/23 07/26/23 Range/Units 09:40 09:40 11:34 WBC (3.8-10.6) k/uL RBC (4.30-5.90) m/uL Hgb (13.0-17.5) gm/dL Hct (39.0-53.0) % RDW (11.5-15.5) % Plt Count (150-450) k/uL ABG pO2 (83-108) mmHg ABG Total CO2 (19-24) mmol/L ABG O2 Saturation (94-97) % Sodium 129 L (137-145) mmol/L Potassium 5.6 H (3.5-5.1) mmol/L Chloride 96 L (98-107) mmol/L BUN 63 H (9-20) mg/dL Creatinine 2.81 H (0.66-1.25) mg/dL Glucose 267 H (74-99) mg/dL POC Glucose (mg/dL) 245 H (70-110) mg/dL Calcium 7.4 L (8.4-10.2) mg/dL Phosphorus (2.5-4.5) mg/dL AST (17-59) U/L ALT (4-49) U/L Alkaline Phosphatase (38-126) U/L Total Protein (6.3-8.2) g/dL Albumin (3.5-5.0) g/dL Carcinoembryonic Ag (0.0-4.9) ng/mL CA 19-9 Antigen >74863.0 H (0.0-34.9) U/mL TB Test (QFT) Gold Plus (Negative) 07/26/23 07/26/23 07/26/23 Range/Units 16:18 18:00 20:13 WBC (3.8-10.6) k/uL RBC (4.30-5.90) m/uL Hgb (13.0-17.5) gm/dL Hct (39.0-53.0) % RDW (11.5-15.5) % Plt Count (150-450) k/uL ABG pO2 (83-108) mmHg ABG Total CO2 (19-24) mmol/L ABG O2 Saturation (94-97) % Sodium 128 L (137-145) mmol/L Potassium 5.4 H (3.5-5.1) mmol/L Chloride 96 L (98-107) mmol/L BUN 68 H (9-20) mg/dL Creatinine 2.99 H (0.66-1.25) mg/dL Glucose 239 H (74-99) mg/dL POC Glucose (mg/dL) 239 H 239 H (70-110) mg/dL Calcium 7.3 L (8.4-10.2) mg/dL Phosphorus (2.5-4.5) mg/dL AST (17-59) U/L ALT (4-49) U/L Alkaline Phosphatase (38-126) U/L Total Protein (6.3-8.2) g/dL Albumin (3.5-5.0) g/dL Carcinoembryonic Ag (0.0-4.9) ng/mL CA 19-9 Antigen (0.0-34.9) U/mL TB Test (QFT) Gold Plus (Negative) 07/27/23 07/27/23 07/27/23 Range/Units 00:25 04:39 04:39 WBC 21.6 H (3.8-10.6) k/uL RBC 2.47 L (4.30-5.90) m/uL Hgb 7.2 L (13.0-17.5) gm/dL Hct 23.1 L (39.0-53.0) % RDW 15.8 H (11.5-15.5) % Plt Count 133 L (150-450) k/uL ABG pO2 (83-108) mmHg ABG Total CO2 (19-24) mmol/L ABG O2 Saturation (94-97) % Sodium 129 L (137-145) mmol/L Potassium 5.2 H (3.5-5.1) mmol/L Chloride 94 L (98-107) mmol/L BUN 74 H (9-20) mg/dL Creatinine 2.95 H (0.66-1.25) mg/dL Glucose 231 H (74-99) mg/dL POC Glucose (mg/dL) 252 H (70-110) mg/dL Calcium 7.4 L (8.4-10.2) mg/dL Phosphorus 8.0 H (2.5-4.5) mg/dL AST 599 H (17-59) U/L ALT 213 H (4-49) U/L Alkaline Phosphatase 634 H (38-126) U/L Total Protein 4.7 L (6.3-8.2) g/dL Albumin 2.1 L (3.5-5.0) g/dL Carcinoembryonic Ag (0.0-4.9) ng/mL CA 19-9 Antigen (0.0-34.9) U/mL TB Test (QFT) Gold Plus (Negative) 07/27/23 07/27/23 Range/Units 04:39 06:19 WBC (3.8-10.6) k/uL RBC (4.30-5.90) m/uL Hgb (13.0-17.5) gm/dL Hct (39.0-53.0) % RDW (11.5-15.5) % Plt Count (150-450) k/uL ABG pO2 111 H (83-108) mmHg ABG Total CO2 25 H (19-24) mmol/L ABG O2 Saturation 98.4 H (94-97) % Sodium (137-145) mmol/L Potassium (3.5-5.1) mmol/L Chloride (98-107) mmol/L BUN (9-20) mg/dL Creatinine (0.66-1.25) mg/dL Glucose (74-99) mg/dL POC Glucose (mg/dL) 255 H (70-110) mg/dL Calcium (8.4-10.2) mg/dL Phosphorus (2.5-4.5) mg/dL AST (17-59) U/L ALT (4-49) U/L Alkaline Phosphatase (38-126) U/L Total Protein (6.3-8.2) g/dL Albumin (3.5-5.0) g/dL Carcinoembryonic Ag (0.0-4.9) ng/mL CA 19-9 Antigen (0.0-34.9) U/mL TB Test (QFT) Gold Plus (Negative) Assessment and Plan Assessment: Acute cardiac arrest with a normal echocardiogram and no ongoing cardiac arrhythmias. The patient had a episode of bradycardia followed by PEA. During the same time, the patient was hypoglycemic. This could have been a acute hypoglycemic event. Currently debated on mechanical ventilator and the patient is currently hemodynamically stable. The patient remains on mechanical ventilator, sedated for now. The patient will be given a sedation holiday and underlying mental status is to be assessed. 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 Acute hypoxic respiratory failure postcardiac arrest and the patient is requiring intubation mechanical ventilation, there is improvement in the acid-base. Blood gases showing some ongoing mild component of metabolic acidosis. Shortness of breath under investigation. CAT scan of the chest that was done in outside hospital showed multiple bilateral pulmonary nodules/micronodules and obviously differential diagnosis regarding this abnormality is quite extensive specially with his underlying immunosuppressive state. Possibilities include malignancy including possibility of posttransplant or immunosuppression related lymphomas. Other possibilities include infections including possibility of opportunistic infections. Currently afebrile. Hemodynamically stable. The presentation is more typical of a malignancy specially the patient's CAT scan of the abdomen has shown extensive hepatic metastases. High degree AV block, with a present LV function and the patient is currently on dopamine at 5 mcg/kg/min. Current cardiac rhythm is first-degree AV block and the patient remains on dopamine at same dose. History of kidney/liver transplantation, September 2015, at [facility]. Patient has been maintained on a combination of Prograf, CellCept and prednisone, based on worsening renal function, Prograf was discontinued and the patient was also taken off CellCept and the patient is currently on stress dose hydrocortisone. Chronic kidney disease, posttransplantation, with a component of an acute kidney injury with some mild hyperkalemia, treated accordingly and the repeat potassium level is down to 5.6 Multiple hepatic lesions, case was discussed with interventional radiology. Suspect pancreatic cancer. Fine-needle aspirate of the liver mass is to be done today. Right lower lobe pleural effusion Seizure with repetitive movement of the right upper extremity is suspected. The patient is currently on propofol. Chronic elevation of the alkaline phosphatase and a component of transaminitis which is essentially improving at this point in time. Recent evaluation at [facility], which revealed nodules on his liver and lung, rule out carcinoma. Awaiting fine-needle aspirate of the liver History of hypertension. History of hyperlipidemia. History of gastroesophageal reflux disease. History of diabetes, currently on Levemir insulin History of gout. Previous history of tobacco use. Enteral feeding for nutritional support Hyponatremia, sodium levels at 126 and is being monitored closely. Plan: Plan dated July 21, 2023. The blood gas that was drawn, shows no evidence of metabolic acidosis. Based on his electrolyte profile, he has a non-anion gap metabolic acidosis, likely related to his renal dysfunction. The patient is currently on BiPAP, with settings of 12/6 and 28%. His chest x-ray was normal. His ventilation/perfusion lung scan was interpreted as being very low probability for pulmonary embolism. The patient continues on Prograf, prednisone, and CellCept, as immunosuppressive's for his transplantation. I will add some updrafts to his regimen. Additional recommendations and suggestions are forthcoming. We should try to obtain the scans that were done at the outside hospital. The patient apparently was set up for an outpatient PET scan. Prognosis is guarded. Plan dated July 22, 2023. The patient is seen in the intensive care unit today. Currently, the patient is on propofol at 50 mcg/kg/min, and dextrose with half-normal saline at 75 cc an hour. The patient continues on Levaquin. His procalcitonin level was elevated at 4.10. Blood gases show pO2 of 243, pCO2 of 42, pH is 7.25. This morning, the patient had an episode of bradycardia, pulseless electrical activity, and severe hypoglycemia. The patient was a CODE BLUE overhead, and was intubated, and transferred to the intensive care unit. Today, we placed a right femoral arterial line, and a left internal jugular triple-lumen catheter. Additional recommendations and suggestions are forthcoming. We will continue to follow make recommendations along the way. Plan dated July 23, 2023. The patient is seen today in room 259. We did attempt a daily interruption of sedation, to see if he was a candidate for spontaneous breathing trial, but the patient became very agitated, hypertensive, tachycardic, and tachypneic. He was placed back on sedation. Labs, x-rays, and medications are reviewed. The patient's FiO2 was dropped and 50%, down to 40%. The patient continues on cefepime. Labs, x-rays, and medications are reviewed. The patient continues on propofol, and tube feedings. Will get tube feedings up to goal. We will continue to follow make recommendations along the way. We have asked for the scans, and paperwork, from [facility]. Plan dated July 27, 2023. The patient remains on the mechanical ventilator. He continues on the volume assist-control mode. He also continues on propofol, dopamine, and tube feedings with Nepro. In addition, he is receiving a sodium bicarbonate drip, at [address] scan of the brain reveals a new left occipital and left parietal lobe infarct. The patient currently remains a full code. He continues on DVT and GI prophylaxis. He also continues on IV cefepime. The patient recently had a liver biopsy, results are currently pending. The patient's overall prognosis remains very poor. He apparently developed jerking movements of the right upper extremity, which necessitated the repeat CT scan of the brain. We will continue to follow, and make recommendations along the way. The patient is being followed by number of different services, including infectious diseases, and nephrology. Time with Patient: Greater than 30
--- NOTE | 2023-07-27 07:31 | P.PN ---
Subjective Progress Note Date: 07/27/23 PROGRESS NOTE The patient is a 72-year-old male, status post renal and liver transplant in [place] who presented to the hospital with symptoms of progressive dyspnea, back discomfort, on 21 July he had an episode of bradycardia with pulseless electrical activity requiring mechanical ventilation and CPR. His CAT scan showed bilateral pulmonary nodule and liver nodule raising the possibility of infection versus metastatic disease. Cardiology consultation was requested because of an episode of complete heart block last night. His echocardiogram showed a preserved systolic function with no significant valvular abnormality. According to the records he has a history of hypertension, hyperlipidemia. No history of ischemic heart disease is available in the records. He was initiated on IV dopamine and has episodes of second-degree AV block but no third-degree AV block since. His repeat CT scan done yesterday showed evidence to suggest extensive metastasis to the liver with ascites within the pelvis. On presentation his troponin was normal. July 25: The patient remains intubated and sedated. He remains on IV dopamine and his predominantly in second-degree AV block with no significant pauses. He underwent an echo that showed a preserved systolic function with no significant valvular abnormalities. His troponin were mildly elevated at 1.3. His lab data at this morning revealed potassium of 6.1. He has worsening of his leukocytosis. July 26: The patient remains intubated and sedated. He is in sinus mechanism with first- degree AV block and no evidence of second or third-degree AV block. He underwent a CT scan of the head that showed evidence of left parietal and occipital lobes acute infarct. No evidence to suggest intracranial hemorrhage. He underwent a liver biopsy yesterday. The results are pending. Medications: Aspirin 81 mg daily, Lovenox subcu, insulin, Protonix, propofol, sodium bicarb, fentanyl patch, IV dopamine at 5 mcg/kg/min, hydrocortisone PHYSICAL EXAMINATION: Blood pressure 146/60 heart rate 60, intubated and sedated LUNGS: Clear to auscultation HEART: Regular rate and rhythm, S1, S2. No S3. Systolic ejection murmur ABDOMEN: Soft, no organomegaly EXTREMETIES: +1 edema LAB: Potassium 5.2, BUN 74, creatinine 2.95, sodium 129. WBC 21.6. Hemoglobin 7.2 IMPRESSION: 1. Cardiopulmonary arrest etiology unclear 2. Episodes of third and second-degree AV block with no significant pauses on IV dopamine, resolved 3. Status post renal and liver transplant 4. Possible liver metastasis, primary unknown 5. Prior history of hypertension 6. Hyperkalemia 7. Troponin elevation representing type II myocardial injury 8. Evidence of acute cerebrovascular accident PLAN: 1. Continue supportive care 2. Decrease dopamine to 2.5 mcg/kg/min 3. If blood pressure remains elevated add hydralazine 25 mg twice a day 4. Continue supportive care 5. Prognosis is guarded Objective - Vital Signs Vital signs: Vital Signs Temp 97.6 F 07/27/23 04:00 Pulse 63 07/27/23 07:00 Resp 20 07/27/23 07:00 BP 146/61 07/27/23 07:00 Pulse Ox 100 07/27/23 07:00 FiO2 40 07/27/23 04:26 Intake & Output 07/26/23 07/27/23 07/27/23 18:59 06:59 18:59 Intake Total 2224.450 1338.739 58.3 Output Total 200 386 20 Balance 2024.450 952.739 38.3 Weight 95.7 kg 93.4 kg Intake: IV 326 547.3 21.3 0.9 90 120 10 Cefepime 2 gm In Sodium 100 Chloride 0.9% 100 ml @ 25 mls/hr IVPB Q12HR [facility] Rx #:[id number] Dextrose/Water 1 250ml. 91.3 8.3 bag @ 5 MCG/KG/MIN 8.334 mls/hr IV .Q24H [facility] with DOPamine DRIP 800 mg Rx#: [id number] Sodium Chloride 0.45% 1, 100 300 000 ml @ 100 mls/hr IV . [id number] [facility] with Sodium Bicarb (1 Meq/ml) 150 ml Rx#:[id number] pressure bag 36 36 3 Intake, IV Titration 1277.450 197.439 Amount Dextrose/Water 1 250ml. 91.3 8.3 bag @ 5 MCG/KG/MIN 8.334 mls/hr IV .Q24H [facility] with DOPamine DRIP 800 mg Rx#: [id number] Sodium Chloride 0.45 % 1, 1100 100 000 ml @ 100 mls/hr IV . Q11H [facility] with Sodium Bicarb (1 Meq/ml) 100 ml Rx#:[id number] propofoL 1,000 mg In 86.150 89.139 Empty Bag 1 bag @ 15 MCG/ KG/MIN 7.267 mls/hr IV . [id number] [facility] Rx#:[id number] Tube Feeding 491 444 37 Other 130 150 Output: Urine 200 386 20 Other: Voiding Method Indwelling Catheter Indwelling Catheter ABP, PAP, CO, CI - Last Documented Arterial Blood Pressure 167/60 - Labs CBC & Chem 7: 07/27/23 04:39 07/27/23 04:39 Labs: Abnormal Lab Results - Last 24 Hours (Table) 07/25/23 07/26/23 07/26/23 Range/Units 00:10 08:43 09:40 WBC (3.8-10.6) k/uL RBC (4.30-5.90) m/uL Hgb (13.0-17.5) gm/dL Hct (39.0-53.0) % RDW (11.5-15.5) % Plt Count (150-450) k/uL ABG pO2 (83-108) mmHg ABG Total CO2 (19-24) mmol/L ABG O2 Saturation (94-97) % Sodium (137-145) mmol/L Potassium (3.5-5.1) mmol/L Chloride (98-107) mmol/L BUN (9-20) mg/dL Creatinine (0.66-1.25) mg/dL Glucose (74-99) mg/dL POC Glucose (mg/dL) 278 H (70-110) mg/dL Calcium (8.4-10.2) mg/dL Phosphorus (2.5-4.5) mg/dL AST (17-59) U/L ALT (4-49) U/L Alkaline Phosphatase (38-126) U/L Total Protein (6.3-8.2) g/dL Albumin (3.5-5.0) g/dL Carcinoembryonic Ag >4500.0 H (0.0-4.9) ng/mL CA 19-9 Antigen (0.0-34.9) U/mL TB Test (QFT) Gold Plus Indetermin A (Negative) 07/26/23 07/26/23 07/26/23 Range/Units 09:40 09:40 11:34 WBC (3.8-10.6) k/uL RBC (4.30-5.90) m/uL Hgb (13.0-17.5) gm/dL Hct (39.0-53.0) % RDW (11.5-15.5) % Plt Count (150-450) k/uL ABG pO2 (83-108) mmHg ABG Total CO2 (19-24) mmol/L ABG O2 Saturation (94-97) % Sodium 129 L (137-145) mmol/L Potassium 5.6 H (3.5-5.1) mmol/L Chloride 96 L (98-107) mmol/L BUN 63 H (9-20) mg/dL Creatinine 2.81 H (0.66-1.25) mg/dL Glucose 267 H (74-99) mg/dL POC Glucose (mg/dL) 245 H (70-110) mg/dL Calcium 7.4 L (8.4-10.2) mg/dL Phosphorus (2.5-4.5) mg/dL AST (17-59) U/L ALT (4-49) U/L Alkaline Phosphatase (38-126) U/L Total Protein (6.3-8.2) g/dL Albumin (3.5-5.0) g/dL Carcinoembryonic Ag (0.0-4.9) ng/mL CA 19-9 Antigen >45703.0 H (0.0-34.9) U/mL TB Test (QFT) Gold Plus (Negative) 07/26/23 07/26/23 07/26/23 Range/Units 16:18 18:00 20:13 WBC (3.8-10.6) k/uL RBC (4.30-5.90) m/uL Hgb (13.0-17.5) gm/dL Hct (39.0-53.0) % RDW (11.5-15.5) % Plt Count (150-450) k/uL ABG pO2 (83-108) mmHg ABG Total CO2 (19-24) mmol/L ABG O2 Saturation (94-97) % Sodium 128 L (137-145) mmol/L Potassium 5.4 H (3.5-5.1) mmol/L Chloride 96 L (98-107) mmol/L BUN 68 H (9-20) mg/dL Creatinine 2.99 H (0.66-1.25) mg/dL Glucose 239 H (74-99) mg/dL POC Glucose (mg/dL) 239 H 239 H (70-110) mg/dL Calcium 7.3 L (8.4-10.2) mg/dL Phosphorus (2.5-4.5) mg/dL AST (17-59) U/L ALT (4-49) U/L Alkaline Phosphatase (38-126) U/L Total Protein (6.3-8.2) g/dL Albumin (3.5-5.0) g/dL Carcinoembryonic Ag (0.0-4.9) ng/mL CA 19-9 Antigen (0.0-34.9) U/mL TB Test (QFT) Gold Plus (Negative) 07/27/23 07/27/23 07/27/23 Range/Units 00:25 04:39 04:39 WBC 21.6 H (3.8-10.6) k/uL RBC 2.47 L (4.30-5.90) m/uL Hgb 7.2 L (13.0-17.5) gm/dL Hct 23.1 L (39.0-53.0) % RDW 15.8 H (11.5-15.5) % Plt Count 133 L (150-450) k/uL ABG pO2 (83-108) mmHg ABG Total CO2 (19-24) mmol/L ABG O2 Saturation (94-97) % Sodium 129 L (137-145) mmol/L Potassium 5.2 H (3.5-5.1) mmol/L Chloride 94 L (98-107) mmol/L BUN 74 H (9-20) mg/dL Creatinine 2.95 H (0.66-1.25) mg/dL Glucose 231 H (74-99) mg/dL POC Glucose (mg/dL) 252 H (70-110) mg/dL Calcium 7.4 L (8.4-10.2) mg/dL Phosphorus 8.0 H (2.5-4.5) mg/dL AST 599 H (17-59) U/L ALT 213 H (4-49) U/L Alkaline Phosphatase 634 H (38-126) U/L Total Protein 4.7 L (6.3-8.2) g/dL Albumin 2.1 L (3.5-5.0) g/dL Carcinoembryonic Ag (0.0-4.9) ng/mL CA 19-9 Antigen (0.0-34.9) U/mL TB Test (QFT) Gold Plus (Negative) 07/27/23 07/27/23 Range/Units 04:39 06:19 WBC (3.8-10.6) k/uL RBC (4.30-5.90) m/uL Hgb (13.0-17.5) gm/dL Hct (39.0-53.0) % RDW (11.5-15.5) % Plt Count (150-450) k/uL ABG pO2 111 H (83-108) mmHg ABG Total CO2 25 H (19-24) mmol/L ABG O2 Saturation 98.4 H (94-97) % Sodium (137-145) mmol/L Potassium (3.5-5.1) mmol/L Chloride (98-107) mmol/L BUN (9-20) mg/dL Creatinine (0.66-1.25) mg/dL Glucose (74-99) mg/dL POC Glucose (mg/dL) 255 H (70-110) mg/dL Calcium (8.4-10.2) mg/dL Phosphorus (2.5-4.5) mg/dL AST (17-59) U/L ALT (4-49) U/L Alkaline Phosphatase (38-126) U/L Total Protein (6.3-8.2) g/dL Albumin (3.5-5.0) g/dL Carcinoembryonic Ag (0.0-4.9) ng/mL CA 19-9 Antigen (0.0-34.9) U/mL TB Test (QFT) Gold Plus (Negative)
[2023-07-27 08:12] LABS: Glucose,Whole Blood 248 mg/dL (70-110)
--- NOTE | 2023-07-27 08:39 | XR ---
EXAMINATION TYPE: XR chest 1V portable DATE OF EXAM: 07/27/2023 COMPARISON: 07/26/2023 INDICATION: Mechanical ventilation difficulty breathing TECHNIQUE: Single frontal view of the chest is obtained. FINDINGS: The heart size is normal. The pulmonary vasculature is normal. There is a developing right lower lobe infiltrate with silhouetting of the diaphragm. 2 catheters are present on the left with tips in the distal superior vena cava region. Nasogastric tube transverses the thorax. Endotracheal tube tip is above the divine. There is elevation of the right diaphragm. IMPRESSION: 1. Developing right lower lobe infiltrate. Correlate for pneumonia. 2. Lines and catheters discussed above.
[2023-07-27] MEDS: SODIUM CHLORIDE 0.9% 1,000 ML IV SCH (09:18)
--- NOTE | 2023-07-27 09:56 | P.PN ---
Subjective Patient is seen in follow-up for acute kidney injury on chronic kidney disease. Renal function stable. Urine output 20 to 40 cc an hour. Receiving tube feeds. Also on bicarb drip. Intubated. Vital signs are stable. General: Resting in bed. HEENT: Intubated. LUNGS: Scattered rhonchi. HEART: Rate and Rhythm are regular. ABDOMEN: Obese. EXTREMITITES: No edema. Objective - Vital Signs Vital signs: Vital Signs Temp 97.7 F 07/27/23 08:00 Pulse 60 07/27/23 09:00 Resp 20 07/27/23 09:00 BP 129/60 07/27/23 09:00 Pulse Ox 99 07/27/23 09:00 FiO2 40 07/27/23 07:38 Intake & Output 07/26/23 07/27/23 07/27/23 18:59 06:59 18:59 Intake Total 2224.450 1338.739 433.402 Output Total 200 386 70 Balance 2024.450 952.739 363.402 Weight 95.7 kg 93.4 kg Intake: IV 326 547.3 177.3 0.9 90 120 160 Cefepime 2 gm In Sodium 100 Chloride 0.9% 100 ml @ 25 mls/hr IVPB Q12HR [facility] Rx #:[id number] Dextrose/Water 1 250ml. 91.3 8.3 bag @ 2.5 MCG/KG/MIN 4. 167 mls/hr IV .Q24H [facility] with DOPamine DRIP 800 mg Rx#:[id number] Sodium Chloride 0.45% 1, 100 300 000 ml @ 100 mls/hr IV . [id number] [facility] with Sodium Bicarb (1 Meq/ml) 150 ml Rx#:[id number] pressure bag 36 36 9 Intake, IV Titration 1277.450 197.439 85.102 Amount Dextrose/Water 1 250ml. 91.3 8.3 bag @ 2.5 MCG/KG/MIN 4. 167 mls/hr IV .Q24H [facility] with DOPamine DRIP 800 mg Rx#:[id number] Sodium Chloride 0.45 % 1, 1100 100 000 ml @ 100 mls/hr IV . Q11H [facility] with Sodium Bicarb (1 Meq/ml) 100 ml Rx#:[id number] propofoL 1,000 mg In 86.150 89.139 85.102 Empty Bag 1 bag @ 15 MCG/ KG/MIN 7.267 mls/hr IV . [id number] [facility] Rx#:[id number] Tube Feeding 491 444 111 Other 130 150 60 Output: Urine 200 386 70 Other: Voiding Method Indwelling Catheter Indwelling Catheter Indwelling Catheter ABP, PAP, CO, CI - Last Documented Arterial Blood Pressure 128/46 - Labs CBC & Chem 7: 07/27/23 04:39 07/27/23 04:39 Labs: Abnormal Lab Results - Last 24 Hours (Table) 07/25/23 07/26/23 07/26/23 Range/Units 00:10 09:40 09:40 WBC (3.8-10.6) k/uL RBC (4.30-5.90) m/uL Hgb (13.0-17.5) gm/dL Hct (39.0-53.0) % RDW (11.5-15.5) % Plt Count (150-450) k/uL ABG pO2 (83-108) mmHg ABG Total CO2 (19-24) mmol/L ABG O2 Saturation (94-97) % Sodium (137-145) mmol/L Potassium (3.5-5.1) mmol/L Chloride (98-107) mmol/L BUN (9-20) mg/dL Creatinine (0.66-1.25) mg/dL Glucose (74-99) mg/dL POC Glucose (mg/dL) (70-110) mg/dL Calcium (8.4-10.2) mg/dL Phosphorus (2.5-4.5) mg/dL AST (17-59) U/L ALT (4-49) U/L Alkaline Phosphatase (38-126) U/L Total Protein (6.3-8.2) g/dL Albumin (3.5-5.0) g/dL Carcinoembryonic Ag >4500.0 H (0.0-4.9) ng/mL CA 19-9 Antigen >28540.0 H (0.0-34.9) U/mL TB Test (QFT) Gold Plus Indetermin A (Negative) 07/26/23 07/26/23 07/26/23 Range/Units 09:40 11:34 16:18 WBC (3.8-10.6) k/uL RBC (4.30-5.90) m/uL Hgb (13.0-17.5) gm/dL Hct (39.0-53.0) % RDW (11.5-15.5) % Plt Count (150-450) k/uL ABG pO2 (83-108) mmHg ABG Total CO2 (19-24) mmol/L ABG O2 Saturation (94-97) % Sodium 129 L (137-145) mmol/L Potassium 5.6 H (3.5-5.1) mmol/L Chloride 96 L (98-107) mmol/L BUN 63 H (9-20) mg/dL Creatinine 2.81 H (0.66-1.25) mg/dL Glucose 267 H (74-99) mg/dL POC Glucose (mg/dL) 245 H 239 H (70-110) mg/dL Calcium 7.4 L (8.4-10.2) mg/dL Phosphorus (2.5-4.5) mg/dL AST (17-59) U/L ALT (4-49) U/L Alkaline Phosphatase (38-126) U/L Total Protein (6.3-8.2) g/dL Albumin (3.5-5.0) g/dL Carcinoembryonic Ag (0.0-4.9) ng/mL CA 19-9 Antigen (0.0-34.9) U/mL TB Test (QFT) Gold Plus (Negative) 07/26/23 07/26/23 07/27/23 Range/Units 18:00 20:13 00:25 WBC (3.8-10.6) k/uL RBC (4.30-5.90) m/uL Hgb (13.0-17.5) gm/dL Hct (39.0-53.0) % RDW (11.5-15.5) % Plt Count (150-450) k/uL ABG pO2 (83-108) mmHg ABG Total CO2 (19-24) mmol/L ABG O2 Saturation (94-97) % Sodium 128 L (137-145) mmol/L Potassium 5.4 H (3.5-5.1) mmol/L Chloride 96 L (98-107) mmol/L BUN 68 H (9-20) mg/dL Creatinine 2.99 H (0.66-1.25) mg/dL Glucose 239 H (74-99) mg/dL POC Glucose (mg/dL) 239 H 252 H (70-110) mg/dL Calcium 7.3 L (8.4-10.2) mg/dL Phosphorus (2.5-4.5) mg/dL AST (17-59) U/L ALT (4-49) U/L Alkaline Phosphatase (38-126) U/L Total Protein (6.3-8.2) g/dL Albumin (3.5-5.0) g/dL Carcinoembryonic Ag (0.0-4.9) ng/mL CA 19-9 Antigen (0.0-34.9) U/mL TB Test (QFT) Gold Plus (Negative) 07/27/23 07/27/23 07/27/23 Range/Units 04:39 04:39 04:39 WBC 21.6 H (3.8-10.6) k/uL RBC 2.47 L (4.30-5.90) m/uL Hgb 7.2 L (13.0-17.5) gm/dL Hct 23.1 L (39.0-53.0) % RDW 15.8 H (11.5-15.5) % Plt Count 133 L (150-450) k/uL ABG pO2 (83-108) mmHg ABG Total CO2 (19-24) mmol/L ABG O2 Saturation (94-97) % Sodium 129 L (137-145) mmol/L Potassium 5.2 H (3.5-5.1) mmol/L Chloride 94 L (98-107) mmol/L BUN 74 H (9-20) mg/dL Creatinine 2.95 H (0.66-1.25) mg/dL Glucose 231 H (74-99) mg/dL POC Glucose (mg/dL) 255 H (70-110) mg/dL Calcium 7.4 L (8.4-10.2) mg/dL Phosphorus 8.0 H (2.5-4.5) mg/dL AST 599 H (17-59) U/L ALT 213 H (4-49) U/L Alkaline Phosphatase 634 H (38-126) U/L Total Protein 4.7 L (6.3-8.2) g/dL Albumin 2.1 L (3.5-5.0) g/dL Carcinoembryonic Ag (0.0-4.9) ng/mL CA 19-9 Antigen (0.0-34.9) U/mL TB Test (QFT) Gold Plus (Negative) 07/27/23 07/27/23 Range/Units 06:19 08:11 WBC (3.8-10.6) k/uL RBC (4.30-5.90) m/uL Hgb (13.0-17.5) gm/dL Hct (39.0-53.0) % RDW (11.5-15.5) % Plt Count (150-450) k/uL ABG pO2 111 H (83-108) mmHg ABG Total CO2 25 H (19-24) mmol/L ABG O2 Saturation 98.4 H (94-97) % Sodium (137-145) mmol/L Potassium (3.5-5.1) mmol/L Chloride (98-107) mmol/L BUN (9-20) mg/dL Creatinine (0.66-1.25) mg/dL Glucose (74-99) mg/dL POC Glucose (mg/dL) 248 H (70-110) mg/dL Calcium (8.4-10.2) mg/dL Phosphorus (2.5-4.5) mg/dL AST (17-59) U/L ALT (4-49) U/L Alkaline Phosphatase (38-126) U/L Total Protein (6.3-8.2) g/dL Albumin (3.5-5.0) g/dL Carcinoembryonic Ag (0.0-4.9) ng/mL CA 19-9 Antigen (0.0-34.9) U/mL TB Test (QFT) Gold Plus (Negative) Assessment and Plan Plan: Assessment: 1. Status post liver and kidney transplant in 2016 performed at [facility]. Currently on IV steroids. 2. Acute kidney injury secondary to ATN secondary to cardiac arrest. 3. Chronic kidney disease stage IIIa with baseline creatinine 1.4-1.6 secondary to solitary kidney and long-term CNI use. 4. Bradycardia with PEA arrest. On dopamine. 5. Acute left parietal and occipital CVA. 6. Multiple liver lesions noted concerning for malignancy. Biopsy results pending. 7. Hyponatremia secondary to acute kidney injury. 8. Hyperkalemia secondary to acute kidney injury, acidosis and Prograf. Better. Plan: Change IV fluids from bicarb drip to normal saline at 75 cc an hour. Maintain tube feeds. Maintain IV steroids. CellCept and Prograf held. Prograf level 14.7 dated July 24, 2023. Repeat another level tomorrow morning. Avoid nephrotoxins. Prognosis guarded. Continue to monitor renal function and urine output. Repeat potassium level this evening. Preserved EF noted on echo.
[2023-07-27 11:31] LABS: Glucose,Whole Blood 235 mg/dL (70-110)
--- NOTE | 2023-07-27 13:12 | P.PN ---
Subjective Progress Note Date: 07/27/23 Patient seen in ICU at today's visit, remains ventilated and on pressors. Yesterday pt was experiencing jerking/tremors were noted on the right side, and CT head was obtained showing acute infarcts along the left parietal and left occipital lobes. Neurology following. Liver biopsy was obtained yesterday, path pending. Bilirubin normal at 1.0, LFTs increased today. WBC 21.6, hemoglobin 7.2, plts 133,000. Objective - Vital Signs Vital signs: Vital Signs Temp 97.7 F 07/27/23 08:00 Pulse 69 07/27/23 11:40 Resp 22 07/27/23 11:00 BP 164/69 07/27/23 11:00 Pulse Ox 97 07/27/23 11:00 FiO2 40 07/27/23 11:35 Intake & Output 07/26/23 07/27/23 07/27/23 18:59 06:59 18:59 Intake Total 2224.450 1338.739 669.578 Output Total 200 386 170 Balance 2024.450 952.739 499.578 Weight 95.7 kg 93.4 kg Intake: IV 326 547.3 333.3 0.9 90 120 310 Cefepime 2 gm In Sodium 100 Chloride 0.9% 100 ml @ 25 mls/hr IVPB Q12HR [facility] Rx #:[id number] Dextrose/Water 1 250ml. 91.3 8.3 bag @ 2.5 MCG/KG/MIN 4. 167 mls/hr IV .Q24H [facility] with DOPamine DRIP 800 mg Rx#:[id number] Sodium Chloride 0.45% 1, 100 300 000 ml @ 100 mls/hr IV . [id number] [facility] with Sodium Bicarb (1 Meq/ml) 150 ml Rx#:[id number] pressure bag 36 36 15 Intake, IV Titration 1277.450 197.439 91.278 Amount Dextrose/Water 1 250ml. 91.3 8.3 bag @ 2.5 MCG/KG/MIN 4. 167 mls/hr IV .Q24H [facility] with DOPamine DRIP 800 mg Rx#:[id number] Sodium Chloride 0.45 % 1, 1100 100 000 ml @ 100 mls/hr IV . Q11H [facility] with Sodium Bicarb (1 Meq/ml) 100 ml Rx#:[id number] propofoL 1,000 mg In 86.150 89.139 91.278 Empty Bag 1 bag @ 15 MCG/ KG/MIN 7.267 mls/hr IV . [id number] [facility] Rx#:[id number] Tube Feeding 491 444 185 Other 130 150 60 Output: Urine 200 386 170 Other: Voiding Method Indwelling Catheter Indwelling Catheter Indwelling Catheter ABP, PAP, CO, CI - Last Documented Arterial Blood Pressure 146/56 - Respiratory Details: ventilated breath sounds - Integumentary Integumentary: Absent: cyanotic - Neurologic Neurologic Comment(s): sedated - Labs CBC & Chem 7: 07/27/23 04:39 07/27/23 04:39 Labs: Abnormal Lab Results - Last 24 Hours (Table) 07/26/23 07/26/23 07/26/23 Range/Units 09:40 09:40 16:18 WBC (3.8-10.6) k/uL RBC (4.30-5.90) m/uL Hgb (13.0-17.5) gm/dL Hct (39.0-53.0) % RDW (11.5-15.5) % Plt Count (150-450) k/uL ABG pO2 (83-108) mmHg ABG Total CO2 (19-24) mmol/L ABG O2 Saturation (94-97) % Sodium (137-145) mmol/L Potassium (3.5-5.1) mmol/L Chloride (98-107) mmol/L BUN (9-20) mg/dL Creatinine (0.66-1.25) mg/dL Glucose (74-99) mg/dL POC Glucose (mg/dL) 239 H (70-110) mg/dL Calcium (8.4-10.2) mg/dL Phosphorus (2.5-4.5) mg/dL AST (17-59) U/L ALT (4-49) U/L Alkaline Phosphatase (38-126) U/L Total Protein (6.3-8.2) g/dL Albumin (3.5-5.0) g/dL Carcinoembryonic Ag >4500.0 H (0.0-4.9) ng/mL CA 19-9 Antigen >93075.0 H (0.0-34.9) U/mL 07/26/23 07/26/23 07/27/23 Range/Units 18:00 20:13 00:25 WBC (3.8-10.6) k/uL RBC (4.30-5.90) m/uL Hgb (13.0-17.5) gm/dL Hct (39.0-53.0) % RDW (11.5-15.5) % Plt Count (150-450) k/uL ABG pO2 (83-108) mmHg ABG Total CO2 (19-24) mmol/L ABG O2 Saturation (94-97) % Sodium 128 L (137-145) mmol/L Potassium 5.4 H (3.5-5.1) mmol/L Chloride 96 L (98-107) mmol/L BUN 68 H (9-20) mg/dL Creatinine 2.99 H (0.66-1.25) mg/dL Glucose 239 H (74-99) mg/dL POC Glucose (mg/dL) 239 H 252 H (70-110) mg/dL Calcium 7.3 L (8.4-10.2) mg/dL Phosphorus (2.5-4.5) mg/dL AST (17-59) U/L ALT (4-49) U/L Alkaline Phosphatase (38-126) U/L Total Protein (6.3-8.2) g/dL Albumin (3.5-5.0) g/dL Carcinoembryonic Ag (0.0-4.9) ng/mL CA 19-9 Antigen (0.0-34.9) U/mL 07/27/23 07/27/23 07/27/23 Range/Units 04:39 04:39 04:39 WBC 21.6 H (3.8-10.6) k/uL RBC 2.47 L (4.30-5.90) m/uL Hgb 7.2 L (13.0-17.5) gm/dL Hct 23.1 L (39.0-53.0) % RDW 15.8 H (11.5-15.5) % Plt Count 133 L (150-450) k/uL ABG pO2 (83-108) mmHg ABG Total CO2 (19-24) mmol/L ABG O2 Saturation (94-97) % Sodium 129 L (137-145) mmol/L Potassium 5.2 H (3.5-5.1) mmol/L Chloride 94 L (98-107) mmol/L BUN 74 H (9-20) mg/dL Creatinine 2.95 H (0.66-1.25) mg/dL Glucose 231 H (74-99) mg/dL POC Glucose (mg/dL) 255 H (70-110) mg/dL Calcium 7.4 L (8.4-10.2) mg/dL Phosphorus 8.0 H (2.5-4.5) mg/dL AST 599 H (17-59) U/L ALT 213 H (4-49) U/L Alkaline Phosphatase 634 H (38-126) U/L Total Protein 4.7 L (6.3-8.2) g/dL Albumin 2.1 L (3.5-5.0) g/dL Carcinoembryonic Ag (0.0-4.9) ng/mL CA 19-9 Antigen (0.0-34.9) U/mL 07/27/23 07/27/23 07/27/23 Range/Units 06:19 08:11 11:30 WBC (3.8-10.6) k/uL RBC (4.30-5.90) m/uL Hgb (13.0-17.5) gm/dL Hct (39.0-53.0) % RDW (11.5-15.5) % Plt Count (150-450) k/uL ABG pO2 111 H (83-108) mmHg ABG Total CO2 25 H (19-24) mmol/L ABG O2 Saturation 98.4 H (94-97) % Sodium (137-145) mmol/L Potassium (3.5-5.1) mmol/L Chloride (98-107) mmol/L BUN (9-20) mg/dL Creatinine (0.66-1.25) mg/dL Glucose (74-99) mg/dL POC Glucose (mg/dL) 248 H 235 H (70-110) mg/dL Calcium (8.4-10.2) mg/dL Phosphorus (2.5-4.5) mg/dL AST (17-59) U/L ALT (4-49) U/L Alkaline Phosphatase (38-126) U/L Total Protein (6.3-8.2) g/dL Albumin (3.5-5.0) g/dL Carcinoembryonic Ag (0.0-4.9) ng/mL CA 19-9 Antigen (0.0-34.9) U/mL - Imaging and Cardiology CT Scan - head: report reviewed Assessment and Plan (1) Liver lesion Current Visit: Yes Status: Acute Priority: High Code(s): K76.9 - LIVER DISEASE, UNSPECIFIED SNOMED Code(s): 568404157 (2) Lung nodule, multiple Current Visit: Yes Status: Acute Priority: High Code(s): R91.8 - OTHER NONSPECIFIC ABNORMAL FINDING OF LUNG FIELD SNOMED Code(s): 924856341 Plan: PEA arrest, CVA -Developed bradycardia while being transition from BiPAP earlier this morning -Underwent 2 rounds of CPR with epinephrine given and ROSC achieved -Blood glucose was low at this time, measuring 25 -Remains intubated and on pressors -Course has been complicated by acute infarcts noted in left parietal and left occipital lobes -Management per primary, neurology, and ICU teams Lung and liver lesions -Seen on imaging recently at [facility]. Plans were for follow- up PET CT scan and referral for biopsy -Bilirubin currently normal though urine is very dark. LFTs elevated. Abd US Reporting the liver is heterogenous questioning mets versus transplant surgical changes. Postoperative dilation of the common bile duct was reported as well -Consult placed for Interventional Radiology to review the case and see if liver biopsy is possible. Did note that the patient is a liver transplant -Liver biopsy obtained on 07/26/23, path pending -CT abdomen and pelvis without contrast on 07/24/2023 revealed proximal small bowel loops are prominent. Mid and distal small bowel loops are decompressed. Mild partial small bowel obstruction or ileus is possible. Extensive metastasis to the liver. Ascites within the pelvis. Loculated density within the right dependent lung base -Liver doctor at the [facility] in [place] Dr. Lemus phone [phone] Low back pain, complicated by acute metabolic encephalopathy -Patient was placed on fentanyl and [place] on discharge from [facility]. Patient feels he has some control over his pain but, he is using IV pain medications rather frequently in the ER -Had increased confusion with Dilaudid over the evening of 07/20/2023 -This improved with Narcan on 07/21/2023 -Transdermal fentanyl increased to 75 mcg on 07/21/2023 -This can be maintained for now and likely did not contribute to his acute episode of bradycardia
--- NOTE | 2023-07-27 14:28 | P.PN ---
Subjective Progress Note Date: 07/27/23 Pt underwent liver biopsy on 07/25, pending results. TB gold quant is indeterminate. CEA Ag > 4500, CA 19-9 is > 65882. Na is 129 today, Cr 2.95. WBC is 21.6, Hgb 7.2, PLT 133. Pts sedation being weaned today for trial of holiday to check mental status. General: intubated, sedated HEENT: normocephalic, atraumatic, no tracheal deviation Respiratory: symmetric chest rise, no cyanosis, ventilator dependent CVS: perfusing all extremities, no distal gangrene, bilateral pitting edema GI: soft, ND : no SPT, no CVAT, soriano is present Neuro: sedated Hospital Course: Patient is a 59-year-old male with BPH, carotid stenosis, cirrhosis, diabetes, end-stage renal disease status post renal and liver transplant no longer requiring hemodialysis, glaucoma, hypertension, and multiple other comorbid conditions who presented to the emergency department with complaints of shortne ss of breath. Patient had recently been at an outside hospital for abdominal and back pain they are workup revealed lesions in his liver, kidney, and lung and he was requiring Dilaudid [id number] for pain. He was discharged on a fentanyl patch with a PET scan scheduled for July with Dr. Wise. In the emergency department here he was noted to have a white blood cell count of 16, sodium 124, BUN 30, creatinine 1.76 (baseline creatinine 2), AST 241, ALT 153, alkaline phosphatase 669, and a D-dimer of 18.53. Patient was admitted with concerns for possible pulmonary embolism and he was started on Lovenox. He subsequently underwent a ventilation/perfusion scan which demonstrated low pr obability for pulmonary embolism. He underwent echocardiogram which demonstrated ejection fraction of 55 to 60% with mild aortic stenosis. Renal and bladder ultrasound demonstrated hepatic metastatic disease with transplanted kidneys and atrophic tyonek kidneys. Oncology was consulted. They recommended continuing pain control considering additional imaging and IR consultation. Patient was noted to have change in mentation and therefore underwent a CT of the head which demonstrated no acute intracranial process. He then became hypoxic requiring high flow nasal cannula and ultimately BiPAP. Pulmonary was consulted and added bronchodilators. On the morning of 07/21 patient was undergoing a BiPAP weaning trial when he lost pulses and CPR was initiated. He had ROSC after 2 rounds of epinephrine however his mental status did not improve and he was subsequently intubated and transferred to the ICU. He required norepinephrine for less than 24 hours. Infectious disease was consulted he recommended adding cefepime while awaiting cultures to finalize. Nephrology was consulted who recommended holding CellCept and continuing tacrolimus and prednisone. His Tacro was then held. Patient became bradycardiac overnight on 07/24 and cardio was consulted and the patient was started on a dobutamine gtt. Patient developed seizures early this morning and was given Ativan from critical care with resolution of seizure-like activity. Neurology was consulted. CT brain was ordered and patient was loaded with Keppra. He underwent liver biopsy on 07/26/23 Assessment/Plan: S/P Cardiac arrest Multiple lung and liver nodules, probable malignancy Intractable pain likely related to malignancy Acute hypoxic respiratory failure Transaminitis suspect secondary to liver lesions versus hepatitis C - s/p liver biopsy, pathology pending, discussed with Dr. Dobbs today, this is likely neoplastic - Await further oncology recs - Await further ID recs - Cefepime 2 g IV piggyback twice daily D # 6 - Solucortef 100 mg IVP q 8 hours -- increased as it is now the only immunosupressant the patient is receiving. - Hold Lipitor due to elevated liver enzymes - Fentanyl 75 mcg patch has been continued. - DuoNebs every 4 hours and as needed Seizure-like activity Left parietal and occipital lobe lesions - CVA vs masses Acute encephalopathy, possible anoxic -Await neurology consultation -Ideally patient would undergo MRI of able to come off of vent -EEG is severely abnormal due to generalized background suppression suggestive of generalized cerebral dysfunction -Keppra 500 mg every 12 hours -continue daily sedation holidays to assess mental status Episodes of complete heart block with unclear etiology NSTEMI - Off coreg - Cardiology note reviewed: Continue supportive care and IV dopamine, but decrease dose, add hydralazine for BP control if needed - Dopamine decreased to 2.5 - repeat echo with EF 65-60% Chronic kidney disease stage III status post renal and liver transplant Hyponatremia, possible SIADH Metabolic acidosis Hyperkalemia - Nephrology note reviewed: Continue with IV bicarb, maintain hydrocortisone, continue to hold tacro -IVF changed from bicarb to NS 75 cc/hr - Continue to hold tacrolimus, cellcept, and prednisone 2 mg daily - Continue to follow renal function Normocytic anemia - Follow CBC - No indication for transfusion at this time Diabetes mellitus type 2 with episodes of hypoglycemia - NovoLog 2 units every 6 hours in addition to sliding scale every 6 hours - Increase levemir to 20 units once daily - Follow blood sugars Chronic conditions BPH Carotid stenosis Hepatitis C Hypertension Dyslipidemia Osteoarthritis Vitamin D deficiency Pulmonary embolism ruled out Poor over all prognosis DVT prophylaxis: Lovenox Anticipated discharge date: Pending Clinical Course Anticipated discharge place: Pending Clinical Course This dictation was prepared using [employer] voice recognition software. Though every attempt is made to correct errors during dictation some may still exist. Objective - Vital Signs Vital signs: Vital Signs Temp 98.7 F 07/27/23 12:00 Pulse 64 07/27/23 14:00 Resp 20 07/27/23 14:00 BP 123/59 07/27/23 14:00 Pulse Ox 98 07/27/23 14:00 FiO2 40 07/27/23 12:00 Intake & Output 07/26/23 07/27/23 07/27/23 18:59 06:59 18:59 Intake Total 2224.450 7281.542 9336.578 Output Total 200 386 270 Balance 2024.450 952.739 774.578 Weight 95.7 kg 93.4 kg Intake: IV 326 547.3 567.3 0.9 90 120 535 Cefepime 2 gm In Sodium 100 Chloride 0.9% 100 ml @ 25 mls/hr IVPB Q12HR [facility] Rx #:[id number] Dextrose/Water 1 250ml. 91.3 8.3 bag @ 2.5 MCG/KG/MIN 4. 167 mls/hr IV .Q24H [facility] with DOPamine DRIP 800 mg Rx#:[id number] Sodium Chloride 0.45% 1, 100 300 000 ml @ 100 mls/hr IV . [id number] [facility] with Sodium Bicarb (1 Meq/ml) 150 ml Rx#:[id number] pressure bag 36 36 24 Intake, IV Titration 1277.450 197.439 91.278 Amount Dextrose/Water 1 250ml. 91.3 8.3 bag @ 2.5 MCG/KG/MIN 4. 167 mls/hr IV .Q24H [facility] with DOPamine DRIP 800 mg Rx#:[id number] Sodium Chloride 0.45 % 1, 1100 100 000 ml @ 100 mls/hr IV . Q11H [facility] with Sodium Bicarb (1 Meq/ml) 100 ml Rx#:[id number] propofoL 1,000 mg In 86.150 89.139 91.278 Empty Bag 1 bag @ 15 MCG/ KG/MIN 7.267 mls/hr IV . [id number] [facility] Rx#:[id number] Tube Feeding 491 444 296 Other 130 150 90 Output: Urine 200 386 270 Other: Voiding Method Indwelling Catheter Indwelling Catheter Indwelling Catheter ABP, PAP, CO, CI - Last Documented Arterial Blood Pressure 135/53 - Labs CBC & Chem 7: 07/27/23 04:39 07/27/23 04:39 Labs: Abnormal Lab Results - Last 24 Hours (Table) 07/26/23 07/26/23 07/26/23 Range/Units 09:40 09:40 16:18 WBC (3.8-10.6) k/uL RBC (4.30-5.90) m/uL Hgb (13.0-17.5) gm/dL Hct (39.0-53.0) % RDW (11.5-15.5) % Plt Count (150-450) k/uL ABG pO2 (83-108) mmHg ABG Total CO2 (19-24) mmol/L ABG O2 Saturation (94-97) % Sodium (137-145) mmol/L Potassium (3.5-5.1) mmol/L Chloride (98-107) mmol/L BUN (9-20) mg/dL Creatinine (0.66-1.25) mg/dL Glucose (74-99) mg/dL POC Glucose (mg/dL) 239 H (70-110) mg/dL Calcium (8.4-10.2) mg/dL Phosphorus (2.5-4.5) mg/dL AST (17-59) U/L ALT (4-49) U/L Alkaline Phosphatase (38-126) U/L Total Protein (6.3-8.2) g/dL Albumin (3.5-5.0) g/dL Carcinoembryonic Ag >4500.0 H (0.0-4.9) ng/mL CA 19-9 Antigen >98025.0 H (0.0-34.9) U/mL 07/26/23 07/26/23 07/27/23 Range/Units 18:00 20:13 00:25 WBC (3.8-10.6) k/uL RBC (4.30-5.90) m/uL Hgb (13.0-17.5) gm/dL Hct (39.0-53.0) % RDW (11.5-15.5) % Plt Count (150-450) k/uL ABG pO2 (83-108) mmHg ABG Total CO2 (19-24) mmol/L ABG O2 Saturation (94-97) % Sodium 128 L (137-145) mmol/L Potassium 5.4 H (3.5-5.1) mmol/L Chloride 96 L (98-107) mmol/L BUN 68 H (9-20) mg/dL Creatinine 2.99 H (0.66-1.25) mg/dL Glucose 239 H (74-99) mg/dL POC Glucose (mg/dL) 239 H 252 H (70-110) mg/dL Calcium 7.3 L (8.4-10.2) mg/dL Phosphorus (2.5-4.5) mg/dL AST (17-59) U/L ALT (4-49) U/L Alkaline Phosphatase (38-126) U/L Total Protein (6.3-8.2) g/dL Albumin (3.5-5.0) g/dL Carcinoembryonic Ag (0.0-4.9) ng/mL CA 19-9 Antigen (0.0-34.9) U/mL 07/27/23 07/27/23 07/27/23 Range/Units 04:39 04:39 04:39 WBC 21.6 H (3.8-10.6) k/uL RBC 2.47 L (4.30-5.90) m/uL Hgb 7.2 L (13.0-17.5) gm/dL Hct 23.1 L (39.0-53.0) % RDW 15.8 H (11.5-15.5) % Plt Count 133 L (150-450) k/uL ABG pO2 (83-108) mmHg ABG Total CO2 (19-24) mmol/L ABG O2 Saturation (94-97) % Sodium 129 L (137-145) mmol/L Potassium 5.2 H (3.5-5.1) mmol/L Chloride 94 L (98-107) mmol/L BUN 74 H (9-20) mg/dL Creatinine 2.95 H (0.66-1.25) mg/dL Glucose 231 H (74-99) mg/dL POC Glucose (mg/dL) 255 H (70-110) mg/dL Calcium 7.4 L (8.4-10.2) mg/dL Phosphorus 8.0 H (2.5-4.5) mg/dL AST 599 H (17-59) U/L ALT 213 H (4-49) U/L Alkaline Phosphatase 634 H (38-126) U/L Total Protein 4.7 L (6.3-8.2) g/dL Albumin 2.1 L (3.5-5.0) g/dL Carcinoembryonic Ag (0.0-4.9) ng/mL CA 19-9 Antigen (0.0-34.9) U/mL 07/27/23 07/27/23 07/27/23 Range/Units 06:19 08:11 11:30 WBC (3.8-10.6) k/uL RBC (4.30-5.90) m/uL Hgb (13.0-17.5) gm/dL Hct (39.0-53.0) % RDW (11.5-15.5) % Plt Count (150-450) k/uL ABG pO2 111 H (83-108) mmHg ABG Total CO2 25 H (19-24) mmol/L ABG O2 Saturation 98.4 H (94-97) % Sodium (137-145) mmol/L Potassium (3.5-5.1) mmol/L Chloride (98-107) mmol/L BUN (9-20) mg/dL Creatinine (0.66-1.25) mg/dL Glucose (74-99) mg/dL POC Glucose (mg/dL) 248 H 235 H (70-110) mg/dL Calcium (8.4-10.2) mg/dL Phosphorus (2.5-4.5) mg/dL AST (17-59) U/L ALT (4-49) U/L Alkaline Phosphatase (38-126) U/L Total Protein (6.3-8.2) g/dL Albumin (3.5-5.0) g/dL Carcinoembryonic Ag (0.0-4.9) ng/mL CA 19-9 Antigen (0.0-34.9) U/mL
[2023-07-27 16:00] LABS: Glucose,Whole Blood 201 mg/dL (70-110)
[2023-07-27 19:39] LABS: Glucose,Whole Blood 152 mg/dL (70-110)
--- NOTE | 2023-07-27 19:46 | US ---
EXAMINATION TYPE: US carotid duplex RT DATE OF EXAM: 07/27/2023 COMPARISON: 01/05/2010 CLINICAL INDICATION: Male, 72 years old with history of CVA; CVA ICU patient on vent. Unable to scan left side due to central line in left IJV TECHNIQUE: Carotid duplex ultrasound examination. Indirect Doppler criteria was utilized. 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 No significant interval change compared to previous. Criteria for Assigning % of Stenosis / Diameter reduction (Estimation based on the indirect measurements of the internal carotid artery velocities (ICA PSV). 1. Normal (no stenosis)=ICA PSV < 125 cm/s: ratio < 2.0: ICA EDV<40 cm/s. 2. Less than 50% stenosis=ICA PSV < 125 cm/s: ratio < 2.0: ICA EDV<40 cm/s. 3. 50 to 69% stenosis=ICA PSV of 125 to 230 cm/s: ration 2.0 ? 4.0: ICA EDV 40-100 cm/s. 4. Greater than 70% stenosis to near occlusion= ICA PSV > 230 cm/s: ratio > 4.0: ICA EDV > 100 cm/s. 5. Near occlusion= ICA PSV velocities may be low or undetectable: variable ratio and ICA EDV. 6. Total occlusion=unable to detect flow.
[2023-07-27 23:25] LABS: Glucose,Whole Blood 159 mg/dL (70-110)
[2023-07-28 03:05] LABS: Glucose,Whole Blood 163 mg/dL (70-110)
[2023-07-28 05:13] LABS: HCT 22.1 % (39.0-53.0); HGB 7.2 gm/dL (13.0-17.5); Hypochromasia Slight; MCH 29.9 pg (25.0-35.0); MCHC 32.6 g/dL (31.0-37.0); MCV 91.7 fL (80.0-100.0); Mean Platelet Volume 9.3; Platelet Count 119 k/uL (150-450); RBC 2.41 m/uL (4.30-5.90); RDW 15.9 % (11.5-15.5)
[2023-07-28 05:45] LABS: African American GFR (CKD) 21 (>60 ml/min/1.73 sqM); Anion Gap 13 mmol/L; Blood Urea Nitrogen 88 mg/dL (9-20); Calcium 7.5 mg/dL (8.4-10.2); Carbon Dioxide 20 mmol/L (22-30); Chloride 97 mmol/L (98-107); Glucose 143 mg/dL (74-99); Non-African American GFR(CKD) 19 (>60 ml/min/1.73 sqM); Sodium 130 mmol/L (137-145)
[2023-07-28 05:58] LABS: ABG Base Excess -1.8 mmol/L; ABG HCO3 23 mmol/L (21-25); ABG Oxygen Saturation 97.7 % (94-97); ABG PCO2 40 mmHg (35-45); ABG PH 7.37 (7.35-7.45); ABG PO2 100 mmHg (83-108); ABG TCO2 25 mmol/L (19-24); Allen Test Performed? Yes
[2023-07-28 06:05] LABS: Magnesium 2.2 mg/dL (1.6-2.3); Phosphorus 8.2 mg/dL (2.5-4.5)
--- NOTE | 2023-07-28 07:22 | P.PN ---
Subjective Progress Note Date: 07/28/23 PROGRESS NOTE The patient is a 72-year-old male, status post renal and liver transplant in [place] who presented to the hospital with symptoms of progressive dyspnea, back discomfort, on 21 July he had an episode of bradycardia with pulseless electrical activity requiring mechanical ventilation and CPR. His CAT scan showed bilateral pulmonary nodule and liver nodule raising the possibility of infection versus metastatic disease. Cardiology consultation was requested because of an episode of complete heart block last night. His echocardiogram showed a preserved systolic function with no significant valvular abnormality. According to the records he has a history of hypertension, hyperlipidemia. No history of ischemic heart disease is available in the records. He was initiated on IV dopamine and has episodes of second-degree AV block but no third-degree AV block since. His repeat CT scan done yesterday showed evidence to suggest extensive metastasis to the liver with ascites within the pelvis. On presentation his troponin was normal. July 25: The patient remains intubated and sedated. He remains on IV dopamine and his predominantly in second-degree AV block with no significant pauses. He underwent an echo that showed a preserved systolic function with no significant valvular abnormalities. His troponin were mildly elevated at 1.3. His lab data at this morning revealed potassium of 6.1. He has worsening of his leukocytosis. July 26: The patient remains intubated and sedated. He is in sinus mechanism with first- degree AV block and no evidence of second or third-degree AV block. He underwent a CT scan of the head that showed evidence of left parietal and occipital lobes acute infarct. No evidence to suggest intracranial hemorrhage. He underwent a liver biopsy yesterday. The results are pending. July 27: The patient remains intubated and sedated. He was off sedation earlier without significant response. He has no further surgery or second-degree AV block. His SD interval has decreased. He underwent liver biopsy and the results are pending. He is undergoing an EEG today. His blood pressure is stable. Medications: Aspirin 81 mg daily, Lovenox subcu, insulin, Protonix, propofol, sodium bicarb, fentanyl patch, IV dopamine at 2.5 mcg/kg/min, hydrocortisone PHYSICAL EXAMINATION: Blood pressure 138/50 heart rate 69, intubated and sedated LUNGS: Clear to auscultation HEART: Regular rate and rhythm, S1, S2. No S3. Systolic ejection murmur ABDOMEN: Soft, no organomegaly EXTREMETIES: +1 edema LAB: Potassium 5.0, BUN 88, creatinine 3.18, sodium 130. WBC 19 .6. Hemoglobin 7.2 IMPRESSION: 1. Cardiopulmonary arrest etiology unclear, workup in progress 2. Episodes of third and second-degree AV block with no significant pauses on IV dopamine, resolved, first-degree block resolved 3. Status post renal and liver transplant, awaiting liver biopsy results 4. Possible liver metastasis, primary unknown 5. Prior history of hypertension 6. Hyperkalemia, improved 7. Troponin elevation representing type II myocardial injury 8. Evidence of acute cerebrovascular accident 9. Worsening renal functions PLAN: 1. Continue supportive care 2. Stop IV dopamine 3. Awaiting results of liver biopsy 4. Continue supportive care, prognosis is guarded Objective - Vital Signs Vital signs: Vital Signs Temp 97.7 F 07/28/23 00:00 Pulse 69 07/28/23 07:00 Resp 22 07/28/23 07:00 BP 126/60 07/27/23 21:00 Pulse Ox 99 07/28/23 07:00 FiO2 40 07/28/23 03:43 Intake & Output 07/27/23 07/28/23 07/28/23 18:59 06:59 18:59 Intake Total 8835.310 3073 23.251 Output Total 420 415 Balance 6577.029 5147 23.251 Intake: IV 879.3 1114 0.9 835 975 Cefepime 2 gm In Sodium 100 Chloride 0.9% 100 ml @ 25 mls/hr IVPB Q12HR [facility] Rx #:[id number] Dextrose/Water 1 250ml. 8.3 bag @ 2.5 MCG/KG/MIN 4. 167 mls/hr IV .Q24H [facility] with DOPamine DRIP 800 mg Rx#:[id number] pressure bag 36 39 Intake, IV Titration 91.278 0 23.251 Amount propofoL 1,000 mg In 91.278 0 23.251 Empty Bag 1 bag @ 15 MCG/ KG/MIN 7.267 mls/hr IV . [id number] [facility] Rx#:[id number] Tube Feeding 444 481 Other 120 90 Output: Urine 420 415 Other: Voiding Method Indwelling Catheter Indwelling Catheter ABP, PAP, CO, CI - Last Documented Arterial Blood Pressure 138/48 - Labs CBC & Chem 7: 07/28/23 05:00 07/28/23 05:00 Labs: Abnormal Lab Results - Last 24 Hours (Table) 07/27/23 07/27/23 07/27/23 Range/Units 08:11 11:30 15:59 WBC (3.8-10.6) k/uL RBC (4.30-5.90) m/uL Hgb (13.0-17.5) gm/dL Hct (39.0-53.0) % RDW (11.5-15.5) % Plt Count (150-450) k/uL ABG Total CO2 (19-24) mmol/L ABG O2 Saturation (94-97) % Sodium (137-145) mmol/L Chloride (98-107) mmol/L Carbon Dioxide (22-30) mmol/L BUN (9-20) mg/dL Creatinine (0.66-1.25) mg/dL Glucose (74-99) mg/dL POC Glucose (mg/dL) 248 H 235 H 201 H (70-110) mg/dL Calcium (8.4-10.2) mg/dL Phosphorus (2.5-4.5) mg/dL 07/27/23 07/27/23 07/28/23 Range/Units 19:38 23:22 03:03 WBC (3.8-10.6) k/uL RBC (4.30-5.90) m/uL Hgb (13.0-17.5) gm/dL Hct (39.0-53.0) % RDW (11.5-15.5) % Plt Count (150-450) k/uL ABG Total CO2 (19-24) mmol/L ABG O2 Saturation (94-97) % Sodium (137-145) mmol/L Chloride (98-107) mmol/L Carbon Dioxide (22-30) mmol/L BUN (9-20) mg/dL Creatinine (0.66-1.25) mg/dL Glucose (74-99) mg/dL POC Glucose (mg/dL) 152 H 159 H 163 H (70-110) mg/dL Calcium (8.4-10.2) mg/dL Phosphorus (2.5-4.5) mg/dL 07/28/23 07/28/23 07/28/23 Range/Units 05:00 05:00 05:00 WBC 19.0 H (3.8-10.6) k/uL RBC 2.41 L (4.30-5.90) m/uL Hgb 7.2 L (13.0-17.5) gm/dL Hct 22.1 L (39.0-53.0) % RDW 15.9 H (11.5-15.5) % Plt Count 119 L (150-450) k/uL ABG Total CO2 (19-24) mmol/L ABG O2 Saturation (94-97) % Sodium 130 L (137-145) mmol/L Chloride 97 L (98-107) mmol/L Carbon Dioxide 20 L (22-30) mmol/L BUN 88 H (9-20) mg/dL Creatinine 3.18 H (0.66-1.25) mg/dL Glucose 143 H (74-99) mg/dL POC Glucose (mg/dL) (70-110) mg/dL Calcium 7.5 L (8.4-10.2) mg/dL Phosphorus 8.2 H (2.5-4.5) mg/dL 07/28/23 Range/Units 05:54 WBC (3.8-10.6) k/uL RBC (4.30-5.90) m/uL Hgb (13.0-17.5) gm/dL Hct (39.0-53.0) % RDW (11.5-15.5) % Plt Count (150-450) k/uL ABG Total CO2 25 H (19-24) mmol/L ABG O2 Saturation 97.7 H (94-97) % Sodium (137-145) mmol/L Chloride (98-107) mmol/L Carbon Dioxide (22-30) mmol/L BUN (9-20) mg/dL Creatinine (0.66-1.25) mg/dL Glucose (74-99) mg/dL POC Glucose (mg/dL) (70-110) mg/dL Calcium (8.4-10.2) mg/dL Phosphorus (2.5-4.5) mg/dL Microbiology - Last 24 Hours (Table) 07/22/23 10:45 Blood Culture - Final Blood 07/22/23 08:15 Blood Culture - Final Blood
[2023-07-28] MEDS: LORazepam 1 MG/0.5 ML VIAL IV STA (07:48)
[2023-07-28 08:00] LABS: Glucose,Whole Blood 180 mg/dL (70-110)
--- NOTE | 2023-07-28 09:21 | P.PN ---
Subjective Progress Note Date: 07/25/23 Principal diagnosis: Reason for follow-up is possible pneumonia Patient is a 72-year-old male with a past medical history negative for hypertension hyperlipidemia reflux, end-stage renal disease s/p renal and liver transplant in 2016 recent vascular bypassed presented to hospital due to abdominal and worsening back pain did have a cardiac arrest for the patient has been intubated and admitted to the ICU. On today's visit that is 07/25/2023,the patient remains to be afebrile, patient is on intubated on the vent FiO2 is currently stable at 40% no significant purulent secretions through the ET vomiting diarrhea or any other changes reported by nursing staff patient currently not on any pressor support. Patient white count is 16.2 creatinine is 2.35 Objective - Vital Signs Vital signs: Vital Signs Temp 97.6 F 07/25/23 12:00 Pulse 44 L 07/25/23 13:00 Resp 24 07/25/23 13:00 BP 117/80 07/25/23 11:00 Pulse Ox 99 07/25/23 13:00 FiO2 40 07/25/23 11:58 Intake & Output 07/24/23 07/25/23 07/25/23 18:59 06:59 18:59 Intake Total 5928.304 9919.968 1024.905 Output Total 45 70 40 Balance 6820.246 1697.968 984.905 Weight 88.9 kg 88.6 kg Intake: IV 223 1356 791 0.9 190 120 70 Cefepime 2 gm In Sodium 100 Chloride 0.9% 100 ml @ 25 mls/hr IVPB Q12HR [facility] Rx #:[id number] Dextrose 5% in Water 1, 1100 700 000 ml @ 100 mls/hr IV . [id number] MARCEL with Sodium Bicarb (1 Meq/ml) 150 ml Rx#:[id number] pressure bag 33 36 21 Intake, IV Titration 832.134 266.968 145.905 Amount Cefepime 2 gm In Sodium 100 Chloride 0.9% 100 ml @ 25 mls/hr IVPB Q12HR [facility] Rx #:[id number] Dextrose 5% in Water 1, 500 000 ml @ 100 mls/hr IV . [id number] MARCEL with Sodium Bicarb (1 Meq/ml) 150 ml Rx#:[id number] Sodium Chloride 0.45% 1, 100 100 000 ml @ 100 mls/hr IV . [id number] MARCEL with Sodium Bicarb (1 Meq/ml) 150 ml Rx#:[id number] propofoL 1,000 mg In 232.134 166.968 45.905 Empty Bag 1 bag @ 15 MCG/ KG/MIN 7.267 mls/hr IV . [id number] MARCEL Rx#:[id number] Tube Feeding 484 88 Other 90 Output: Urine 45 70 40 Other: Voiding Method Indwelling Catheter Indwelling Catheter Indwelling Catheter # Bowel Movements 1 ABP, PAP, CO, CI - Last Documented Arterial Blood Pressure 131/44 - Exam GENERAL DESCRIPTION: An elderly male intubated on the vent RESPIRATORY SYSTEM: Unlabored breathing , decreased breath sounds at bases HEART: S1 S2 regular rate and rhythm , ABDOMEN: Soft , no tenderness EXTREMITIES: No edema feet - Labs CBC & Chem 7: 07/28/23 05:00 07/28/23 05:00 Labs: Abnormal Lab Results - Last 24 Hours (Table) 07/24/23 07/24/23 07/24/23 Range/Units 17:08 17:18 19:40 WBC (3.8-10.6) k/uL RBC (4.30-5.90) m/uL Hgb (13.0-17.5) gm/dL Hct (39.0-53.0) % RDW (11.5-15.5) % Plt Count (150-450) k/uL Neutrophils # (1.3-7.7) k/uL Lymphocytes # (1.0-4.8) k/uL ABG pH (7.35-7.45) ABG pCO2 (35-45) mmHg ABG pO2 (83-108) mmHg ABG HCO3 (21-25) mmol/L ABG O2 Saturation (94-97) % Sodium 126 L (137-145) mmol/L Potassium 5.3 H (3.5-5.1) mmol/L Carbon Dioxide 13 L (22-30) mmol/L BUN 44 H (9-20) mg/dL Creatinine 2.15 H (0.66-1.25) mg/dL Glucose 306 H (74-99) mg/dL POC Glucose (mg/dL) 341 H 372 H (70-110) mg/dL Calcium 7.5 L (8.4-10.2) mg/dL Phosphorus (2.5-4.5) mg/dL AST (17-59) U/L ALT (4-49) U/L Alkaline Phosphatase (38-126) U/L Troponin I (0.000-0.034) ng/mL Total Protein (6.3-8.2) g/dL Albumin (3.5-5.0) g/dL 07/24/23 07/25/23 07/25/23 Range/Units 23:41 03:17 03:17 WBC 16.2 H (3.8-10.6) k/uL RBC 2.46 L (4.30-5.90) m/uL Hgb 7.4 L (13.0-17.5) gm/dL Hct 23.5 L (39.0-53.0) % RDW 15.7 H (11.5-15.5) % Plt Count 136 L (150-450) k/uL Neutrophils # 14.5 H (1.3-7.7) k/uL Lymphocytes # 0.8 L (1.0-4.8) k/uL ABG pH (7.35-7.45) ABG pCO2 (35-45) mmHg ABG pO2 (83-108) mmHg ABG HCO3 (21-25) mmol/L ABG O2 Saturation (94-97) % Sodium 126 L (137-145) mmol/L Potassium (3.5-5.1) mmol/L Carbon Dioxide 15 L (22-30) mmol/L BUN 46 H (9-20) mg/dL Creatinine 2.35 H (0.66-1.25) mg/dL Glucose 279 H (74-99) mg/dL POC Glucose (mg/dL) 278 H (70-110) mg/dL Calcium 7.2 L (8.4-10.2) mg/dL Phosphorus 5.4 H (2.5-4.5) mg/dL AST 145 H (17-59) U/L ALT 65 H (4-49) U/L Alkaline Phosphatase 527 H (38-126) U/L Troponin I (0.000-0.034) ng/mL Total Protein 4.3 L (6.3-8.2) g/dL Albumin 1.9 L (3.5-5.0) g/dL 07/25/23 07/25/23 07/25/23 Range/Units 04:02 05:05 08:18 WBC (3.8-10.6) k/uL RBC (4.30-5.90) m/uL Hgb (13.0-17.5) gm/dL Hct (39.0-53.0) % RDW (11.5-15.5) % Plt Count (150-450) k/uL Neutrophils # (1.3-7.7) k/uL Lymphocytes # (1.0-4.8) k/uL ABG pH 7.33 L (7.35-7.45) ABG pCO2 33 L (35-45) mmHg ABG pO2 75 L (83-108) mmHg ABG HCO3 18 L (21-25) mmol/L ABG O2 Saturation (94-97) % Sodium (137-145) mmol/L Potassium (3.5-5.1) mmol/L Carbon Dioxide (22-30) mmol/L BUN (9-20) mg/dL Creatinine (0.66-1.25) mg/dL Glucose (74-99) mg/dL POC Glucose (mg/dL) 307 H 239 H (70-110) mg/dL Calcium (8.4-10.2) mg/dL Phosphorus (2.5-4.5) mg/dL AST (17-59) U/L ALT (4-49) U/L Alkaline Phosphatase (38-126) U/L Troponin I (0.000-0.034) ng/mL Total Protein (6.3-8.2) g/dL Albumin (3.5-5.0) g/dL 07/25/23 07/25/23 07/25/23 Range/Units 11:16 11:16 12:56 WBC (3.8-10.6) k/uL RBC (4.30-5.90) m/uL Hgb (13.0-17.5) gm/dL Hct (39.0-53.0) % RDW (11.5-15.5) % Plt Count (150-450) k/uL Neutrophils # (1.3-7.7) k/uL Lymphocytes # (1.0-4.8) k/uL ABG pH (7.35-7.45) ABG pCO2 (35-45) mmHg ABG pO2 (83-108) mmHg ABG HCO3 (21-25) mmol/L ABG O2 Saturation 97.9 H (94-97) % Sodium (137-145) mmol/L Potassium (3.5-5.1) mmol/L Carbon Dioxide (22-30) mmol/L BUN (9-20) mg/dL Creatinine (0.66-1.25) mg/dL Glucose (74-99) mg/dL POC Glucose (mg/dL) 157 H (70-110) mg/dL Calcium (8.4-10.2) mg/dL Phosphorus (2.5-4.5) mg/dL AST (17-59) U/L ALT (4-49) U/L Alkaline Phosphatase (38-126) U/L Troponin I 1.020 H* (0.000-0.034) ng/mL Total Protein (6.3-8.2) g/dL Albumin (3.5-5.0) g/dL Microbiology - Last 24 Hours (Table) 07/22/23 11:55 Gram Stain - Final Sputum Sputum Culture - Final 07/22/23 10:45 Blood Culture - Preliminary Blood 07/22/23 08:15 Blood Culture - Preliminary Blood Assessment and Plan (1) Pneumonia Current Visit: Yes Status: Acute Code(s): J18.9 - PNEUMONIA, UNSPECIFIED ORGANISM SNOMED Code(s): 573397177 (2) Leukocytosis Current Visit: Yes Status: Acute Code(s): D72.829 - ELEVATED WHITE BLOOD CELL COUNT, UNSPECIFIED SNOMED Code(s): 759298071 (3) Penicillin allergy Current Visit: Yes Status: Acute Code(s): Z88.0 - ALLERGY STATUS TO PENICILLIN SNOMED Code(s): 60074947 Plan: 1patient with acute respiratory failure which is likely multifactorial in this patient who did have a cardiac arrest this morning patient did have elevated procalcitonin and a possible component of pneumonia not entirely excluded poss ible gram-negative 2-blood and sputum culture are so far negative 3-patient is afebrile, however white count is slightly up also slight worsening of his kidney function patient is covered with cefepime for possible component of pneumonia and monitor clinical course closely Dictation was produced using [employer] dictation software. please excuse any grammatical, word or spelling errors. Time with Patient: Less than 30
--- NOTE | 2023-07-28 09:22 | P.PN ---
Subjective Progress Note Date: 07/26/23 Principal diagnosis: Reason for follow-up is possible pneumonia Patient is a 72-year-old male with a past medical history negative for hypertension hyperlipidemia reflux, end-stage renal disease s/p renal and liver transplant in 2016 recent vascular bypassed presented to hospital due to abdominal and worsening back pain did have a cardiac arrest for the patient has been intubated and admitted to the ICU. On today's visit that is 07/26/2023, the patient continues to be afebrile, the patient remains to be intubated on the vent FiO2 is stable at 40% no significant purulent secretions through the ET diarrhea or any changes reported by the nursing staff Patient white count is 24.5 creatinine is 2.99 Objective - Vital Signs Vital signs: Vital Signs Temp 98 F 07/26/23 08:00 Pulse 97 07/26/23 12:04 Resp 20 07/26/23 12:00 BP 143/63 07/26/23 12:04 Pulse Ox 97 07/26/23 12:00 FiO2 40 07/26/23 12:00 Intake & Output 07/25/23 07/26/23 07/26/23 18:59 06:59 18:59 Intake Total 3383.574 7777.280 965.943 Output Total 90 141 35 Balance 4840.504 5871.280 930.943 Weight 95.7 kg Intake: IV 1256 1416 235 0.9 120 80 20 Calcium Gluconate in NaCl 100 2 gm In Saline 1 100ml. bag @ 400 mls/hr IVPB ONCE ONE Rx#:[id number] Cefepime 2 gm In Sodium 100 100 Chloride 0.9% 100 ml @ 25 mls/hr IVPB Q12HR [facility] Rx #:[id number] Dextrose 5% in Water 1, 1100 000 ml @ 100 mls/hr IV . [id number] [facility] with Sodium Bicarb (1 Meq/ml) 150 ml Rx#:[id number] Sodium Chloride 0.45% 1, 1100 100 000 ml @ 100 mls/hr IV . [id number] [facility] with Sodium Bicarb (1 Meq/ml) 150 ml Rx#:[id number] pressure bag 36 36 15 Intake, IV Titration 146.511 126.280 448.943 Amount Cefepime 2 gm In Sodium 100 Chloride 0.9% 100 ml @ 25 mls/hr IVPB Q12HR [facility] Rx #:[id number] Dextrose/Water 1 250ml. 33.2 bag @ 5 MCG/KG/MIN 8.334 mls/hr IV .Q24H [facility] with DOPamine DRIP 800 mg Rx#: [id number] Sodium Chloride 0.45 % 1, 400 000 ml @ 100 mls/hr IV . Q11H [facility]EL with Sodium Bicarb (1 Meq/ml) 100 ml Rx#:[id number] propofoL 1,000 mg In 46.511 126.280 15.743 Empty Bag 1 bag @ 15 MCG/ KG/MIN 7.267 mls/hr IV . [id number] [facility]EL Rx#:[id number] Tube Feeding 396 528 212 Other 180 70 Output: Urine 90 141 35 Other: Voiding Method Indwelling Catheter Indwelling Catheter # Bowel Movements 1 ABP, PAP, CO, CI - Last Documented Arterial Blood Pressure 147/50 - Exam GENERAL DESCRIPTION: An elderly male intubated on the vent RESPIRATORY SYSTEM: Unlabored breathing , decreased breath sounds at bases HEART: S1 S2 regular rate and rhythm , ABDOMEN: Soft , no tenderness EXTREMITIES: No edema feet - Labs CBC & Chem 7: 07/28/23 05:00 07/28/23 05:00 Labs: Abnormal Lab Results - Last 24 Hours (Table) 07/25/23 07/25/23 07/25/23 Range/Units 00:10 12:56 15:07 WBC (3.8-10.6) k/uL RBC (4.30-5.90) m/uL Hgb (13.0-17.5) gm/dL Hct (39.0-53.0) % PT (10.0-12.5) sec INR (<1.2) ABG O2 Saturation 97.9 H (94-97) % Sodium (137-145) mmol/L Potassium (3.5-5.1) mmol/L Chloride (98-107) mmol/L Carbon Dioxide (22-30) mmol/L BUN (9-20) mg/dL Creatinine (0.66-1.25) mg/dL Glucose (74-99) mg/dL POC Glucose (mg/dL) (70-110) mg/dL Calcium (8.4-10.2) mg/dL Troponin I 1.310 H* (0.000-0.034) ng/mL TB Test (QFT) Gold Plus Indetermin A (Negative) 07/25/23 07/25/23 07/26/23 Range/Units 17:31 20:09 00:18 WBC (3.8-10.6) k/uL RBC (4.30-5.90) m/uL Hgb (13.0-17.5) gm/dL Hct (39.0-53.0) % PT (10.0-12.5) sec INR (<1.2) ABG O2 Saturation (94-97) % Sodium (137-145) mmol/L Potassium (3.5-5.1) mmol/L Chloride (98-107) mmol/L Carbon Dioxide (22-30) mmol/L BUN (9-20) mg/dL Creatinine (0.66-1.25) mg/dL Glucose (74-99) mg/dL POC Glucose (mg/dL) 196 H 146 H 241 H (70-110) mg/dL Calcium (8.4-10.2) mg/dL Troponin I (0.000-0.034) ng/mL TB Test (QFT) Gold Plus (Negative) 07/26/23 07/26/23 07/26/23 Range/Units 04:35 04:35 04:35 WBC 24.5 H (3.8-10.6) k/uL RBC 2.47 L (4.30-5.90) m/uL Hgb 7.1 L (13.0-17.5) gm/dL Hct 23.0 L (39.0-53.0) % PT 12.7 H (10.0-12.5) sec INR 1.2 H (<1.2) ABG O2 Saturation (94-97) % Sodium 126 L (137-145) mmol/L Potassium 6.1 H* (3.5-5.1) mmol/L Chloride 96 L (98-107) mmol/L Carbon Dioxide 21 L (22-30) mmol/L BUN 62 H (9-20) mg/dL Creatinine 2.81 H (0.66-1.25) mg/dL Glucose 245 H (74-99) mg/dL POC Glucose (mg/dL) (70-110) mg/dL Calcium 7.0 L (8.4-10.2) mg/dL Troponin I (0.000-0.034) ng/mL TB Test (QFT) Gold Plus (Negative) 07/26/23 07/26/23 07/26/23 Range/Units 04:35 08:43 09:40 WBC (3.8-10.6) k/uL RBC (4.30-5.90) m/uL Hgb (13.0-17.5) gm/dL Hct (39.0-53.0) % PT (10.0-12.5) sec INR (<1.2) ABG O2 Saturation (94-97) % Sodium 129 L (137-145) mmol/L Potassium 5.6 H (3.5-5.1) mmol/L Chloride 96 L (98-107) mmol/L Carbon Dioxide (22-30) mmol/L BUN 63 H (9-20) mg/dL Creatinine 2.81 H (0.66-1.25) mg/dL Glucose 267 H (74-99) mg/dL POC Glucose (mg/dL) 275 H 278 H (70-110) mg/dL Calcium 7.4 L (8.4-10.2) mg/dL Troponin I (0.000-0.034) ng/mL TB Test (QFT) Gold Plus (Negative) 07/26/23 Range/Units 11:34 WBC (3.8-10.6) k/uL RBC (4.30-5.90) m/uL Hgb (13.0-17.5) gm/dL Hct (39.0-53.0) % PT (10.0-12.5) sec INR (<1.2) ABG O2 Saturation (94-97) % Sodium (137-145) mmol/L Potassium (3.5-5.1) mmol/L Chloride (98-107) mmol/L Carbon Dioxide (22-30) mmol/L BUN (9-20) mg/dL Creatinine (0.66-1.25) mg/dL Glucose (74-99) mg/dL POC Glucose (mg/dL) 245 H (70-110) mg/dL Calcium (8.4-10.2) mg/dL Troponin I (0.000-0.034) ng/mL TB Test (QFT) Gold Plus (Negative) Microbiology - Last 24 Hours (Table) 07/22/23 10:45 Blood Culture - Preliminary Blood 07/22/23 08:15 Blood Culture - Preliminary Blood 07/22/23 11:55 Gram Stain - Final Sputum Sputum Culture - Final Assessment and Plan (1) Pneumonia Current Visit: Yes Status: Acute Code(s): J18.9 - PNEUMONIA, UNSPECIFIED ORGANISM SNOMED Code(s): 285236216 (2) Leukocytosis Current Visit: Yes Status: Acute Code(s): D72.829 - ELEVATED WHITE BLOOD CELL COUNT, UNSPECIFIED SNOMED Code(s): 917034854 (3) Penicillin allergy Current Visit: Yes Status: Acute Code(s): Z88.0 - ALLERGY STATUS TO PENICILLIN SNOMED Code(s): 44169908 Plan: 1patient with acute respiratory failure which is likely multifactorial in this patient who did have a cardiac arrest this morning patient did have elevated procalcitonin and a possible component of pneumonia not entirely excluded possible gram-negative 2-blood and sputum culture are so far negative 3-patient is afebrile, seem to have a problem with the leukocytosis however the patient on nontoxic questionably reactive currently on cefepime to continue Dictation was produced using [employer] dictation software. please excuse any grammatical, word or spelling errors. Time with Patient: Less than 30
--- NOTE | 2023-07-28 09:24 | P.PN ---
Subjective Progress Note Date: 07/27/23 Principal diagnosis: Reason for follow-up is possible pneumonia Patient is a 72-year-old male with a past medical history negative for hypertension hyperlipidemia reflux, end-stage renal disease s/p renal and liver transplant in 2016 recent vascular bypassed presented to hospital due to abdominal and worsening back pain did have a cardiac arrest for the patient has been intubated and admitted to the ICU. On today's visit that is 07/27/2023, Patient is afebrile patient is currently on the vent FiO2 is stable at 40% nursing staff reported no purulent secretions through the ET patient not requiring any pressor support and no diarrhea has been reported. Patient white count is down to 21.6 creatinine is 2.95, blood and sputum culture has been negative so far Objective - Vital Signs Vital signs: Vital Signs Temp 97.7 F 07/27/23 08:00 Pulse 60 07/27/23 09:00 Resp 20 07/27/23 09:00 BP 129/60 07/27/23 09:00 Pulse Ox 99 07/27/23 09:00 FiO2 40 07/27/23 07:38 Intake & Output 07/26/23 07/27/23 07/27/23 18:59 06:59 18:59 Intake Total 2224.450 1338.739 439.578 Output Total 200 386 70 Balance 2024.450 952.739 369.578 Weight 95.7 kg 93.4 kg Intake: IV 326 547.3 177.3 0.9 90 120 160 Cefepime 2 gm In Sodium 100 Chloride 0.9% 100 ml @ 25 mls/hr IVPB Q12HR [facility] Rx #:[id number] Dextrose/Water 1 250ml. 91.3 8.3 bag @ 2.5 MCG/KG/MIN 4. 167 mls/hr IV .Q24H [facility]EL with DOPamine DRIP 800 mg Rx#:[id number] Sodium Chloride 0.45% 1, 100 300 000 ml @ 100 mls/hr IV . [id number] [facility]ARCEL with Sodium Bicarb (1 Meq/ml) 150 ml Rx#:[id number] pressure bag 36 36 9 Intake, IV Titration 1277.450 197.439 91.278 Amount Dextrose/Water 1 250ml. 91.3 8.3 bag @ 2.5 MCG/KG/MIN 4. 167 mls/hr IV .Q24H MARCEL with DOPamine DRIP 800 mg Rx#:[id number] Sodium Chloride 0.45 % 1, 1100 100 000 ml @ 100 mls/hr IV . Q11H [facility]EL with Sodium Bicarb (1 Meq/ml) 100 ml Rx#:[id number] propofoL 1,000 mg In 86.150 89.139 91.278 Empty Bag 1 bag @ 15 MCG/ KG/MIN 7.267 mls/hr IV . [id number] [facility]EL Rx#:[id number] Tube Feeding 491 444 111 Other 130 150 60 Output: Urine 200 386 70 Other: Voiding Method Indwelling Catheter Indwelling Catheter Indwelling Catheter ABP, PAP, CO, CI - Last Documented Arterial Blood Pressure 128/46 - Exam GENERAL DESCRIPTION: An elderly male intubated on the vent RESPIRATORY SYSTEM: Unlabored breathing , decreased breath sounds at bases HEART: S1 S2 regular rate and rhythm , ABDOMEN: Soft , no tenderness EXTREMITIES: No edema feet - Labs CBC & Chem 7: 07/28/23 05:00 07/28/23 05:00 Labs: Abnormal Lab Results - Last 24 Hours (Table) 07/25/23 07/26/23 07/26/23 Range/Units 00:10 09:40 09:40 WBC (3.8-10.6) k/uL RBC (4.30-5.90) m/uL Hgb (13.0-17.5) gm/dL Hct (39.0-53.0) % RDW (11.5-15.5) % Plt Count (150-450) k/uL ABG pO2 (83-108) mmHg ABG Total CO2 (19-24) mmol/L ABG O2 Saturation (94-97) % Sodium (137-145) mmol/L Potassium (3.5-5.1) mmol/L Chloride (98-107) mmol/L BUN (9-20) mg/dL Creatinine (0.66-1.25) mg/dL Glucose (74-99) mg/dL POC Glucose (mg/dL) (70-110) mg/dL Calcium (8.4-10.2) mg/dL Phosphorus (2.5-4.5) mg/dL AST (17-59) U/L ALT (4-49) U/L Alkaline Phosphatase (38-126) U/L Total Protein (6.3-8.2) g/dL Albumin (3.5-5.0) g/dL Carcinoembryonic Ag >4500.0 H (0.0-4.9) ng/mL CA 19-9 Antigen >25447.0 H (0.0-34.9) U/mL TB Test (QFT) Gold Plus Indetermin A (Negative) 07/26/23 07/26/23 07/26/23 Range/Units 11:34 16:18 18:00 WBC (3.8-10.6) k/uL RBC (4.30-5.90) m/uL Hgb (13.0-17.5) gm/dL Hct (39.0-53.0) % RDW (11.5-15.5) % Plt Count (150-450) k/uL ABG pO2 (83-108) mmHg ABG Total CO2 (19-24) mmol/L ABG O2 Saturation (94-97) % Sodium 128 L (137-145) mmol/L Potassium 5.4 H (3.5-5.1) mmol/L Chloride 96 L (98-107) mmol/L BUN 68 H (9-20) mg/dL Creatinine 2.99 H (0.66-1.25) mg/dL Glucose 239 H (74-99) mg/dL POC Glucose (mg/dL) 245 H 239 H (70-110) mg/dL Calcium 7.3 L (8.4-10.2) mg/dL Phosphorus (2.5-4.5) mg/dL AST (17-59) U/L ALT (4-49) U/L Alkaline Phosphatase (38-126) U/L Total Protein (6.3-8.2) g/dL Albumin (3.5-5.0) g/dL Carcinoembryonic Ag (0.0-4.9) ng/mL CA 19-9 Antigen (0.0-34.9) U/mL TB Test (QFT) Gold Plus (Negative) 07/26/23 07/27/23 07/27/23 Range/Units 20:13 00:25 04:39 WBC 21.6 H (3.8-10.6) k/uL RBC 2.47 L (4.30-5.90) m/uL Hgb 7.2 L (13.0-17.5) gm/dL Hct 23.1 L (39.0-53.0) % RDW 15.8 H (11.5-15.5) % Plt Count 133 L (150-450) k/uL ABG pO2 (83-108) mmHg ABG Total CO2 (19-24) mmol/L ABG O2 Saturation (94-97) % Sodium (137-145) mmol/L Potassium (3.5-5.1) mmol/L Chloride (98-107) mmol/L BUN (9-20) mg/dL Creatinine (0.66-1.25) mg/dL Glucose (74-99) mg/dL POC Glucose (mg/dL) 239 H 252 H (70-110) mg/dL Calcium (8.4-10.2) mg/dL Phosphorus (2.5-4.5) mg/dL AST (17-59) U/L ALT (4-49) U/L Alkaline Phosphatase (38-126) U/L Total Protein (6.3-8.2) g/dL Albumin (3.5-5.0) g/dL Carcinoembryonic Ag (0.0-4.9) ng/mL CA 19-9 Antigen (0.0-34.9) U/mL TB Test (QFT) Gold Plus (Negative) 07/27/23 07/27/23 07/27/23 Range/Units 04:39 04:39 06:19 WBC (3.8-10.6) k/uL RBC (4.30-5.90) m/uL Hgb (13.0-17.5) gm/dL Hct (39.0-53.0) % RDW (11.5-15.5) % Plt Count (150-450) k/uL ABG pO2 111 H (83-108) mmHg ABG Total CO2 25 H (19-24) mmol/L ABG O2 Saturation 98.4 H (94-97) % Sodium 129 L (137-145) mmol/L Potassium 5.2 H (3.5-5.1) mmol/L Chloride 94 L (98-107) mmol/L BUN 74 H (9-20) mg/dL Creatinine 2.95 H (0.66-1.25) mg/dL Glucose 231 H (74-99) mg/dL POC Glucose (mg/dL) 255 H (70-110) mg/dL Calcium 7.4 L (8.4-10.2) mg/dL Phosphorus 8.0 H (2.5-4.5) mg/dL AST 599 H (17-59) U/L ALT 213 H (4-49) U/L Alkaline Phosphatase 634 H (38-126) U/L Total Protein 4.7 L (6.3-8.2) g/dL Albumin 2.1 L (3.5-5.0) g/dL Carcinoembryonic Ag (0.0-4.9) ng/mL CA 19-9 Antigen (0.0-34.9) U/mL TB Test (QFT) Gold Plus (Negative) 07/27/23 Range/Units 08:11 WBC (3.8-10.6) k/uL RBC (4.30-5.90) m/uL Hgb (13.0-17.5) gm/dL Hct (39.0-53.0) % RDW (11.5-15.5) % Plt Count (150-450) k/uL ABG pO2 (83-108) mmHg ABG Total CO2 (19-24) mmol/L ABG O2 Saturation (94-97) % Sodium (137-145) mmol/L Potassium (3.5-5.1) mmol/L Chloride (98-107) mmol/L BUN (9-20) mg/dL Creatinine (0.66-1.25) mg/dL Glucose (74-99) mg/dL POC Glucose (mg/dL) 248 H (70-110) mg/dL Calcium (8.4-10.2) mg/dL Phosphorus (2.5-4.5) mg/dL AST (17-59) U/L ALT (4-49) U/L Alkaline Phosphatase (38-126) U/L Total Protein (6.3-8.2) g/dL Albumin (3.5-5.0) g/dL Carcinoembryonic Ag (0.0-4.9) ng/mL CA 19-9 Antigen (0.0-34.9) U/mL TB Test (QFT) Gold Plus (Negative) Assessment and Plan (1) Pneumonia Current Visit: Yes Status: Acute Code(s): J18.9 - PNEUMONIA, UNSPECIFIED ORGANISM SNOMED Code(s): 663380849 (2) Leukocytosis Current Visit: Yes Status: Acute Code(s): D72.829 - ELEVATED WHITE BLOOD CELL COUNT, UNSPECIFIED SNOMED Code(s): 291803596 (3) Penicillin allergy Current Visit: Yes Status: Acute Code(s): Z88.0 - ALLERGY STATUS TO PENICILLIN SNOMED Code(s): 73392890 Plan: 1patient with acute respiratory failure which is likely multifactorial in this patient who did have a cardiac arrest this morning patient did have elevated procalcitonin and a possible component of pneumonia not entirely excluded possible gram-negative 2-blood and sputum culture are so far negative 3-patient is afebrile, white count is trending down chest x-ray with right lower lobe pneumonia patient to continue with cefepime and will monitor clinical course closely. at the bedside questions were answered Dictation was produced using [employer] dictation software. please excuse any grammatical, word or spelling errors. Time with Patient: Less than 30
--- NOTE | 2023-07-28 09:27 | XR ---
EXAMINATION TYPE: XR chest 1V portable DATE OF EXAM: 07/28/2023 5:25 AM CLINICAL INDICATION:Male, 72 years old with history of pleural effusion; [facility] COMPARISON: Chest radiographs from TECHNIQUE: XR chest 1V portable Frontal view of the chest. FINDINGS: Lungs/Pleura: There is no evidence of pleural effusion, focal consolidation, or pneumothorax. Pulmonary vascularity: Unremarkable. Heart/mediastinum: Cardiomediastinal silhouette is unremarkable. Musculoskeletal: No acute osseous pathology. Other findings: None Lines/Tubes: Endotracheal tube with distal tip 5.8 cm above the divine. Nasogastric tube with its distal tip and side-port projecting under the diaphragm. [id number] projecting over the left hemithorax with distal tip at the cavoatrial junction. Left internal jugular central venous catheter with distal tip at the cavoatrial junction. IMPRESSION: Low lung volumes with a generalized hazy appearance which could represent atelectasis versus pulmonar y edema correlate with serum BNP.
[2023-07-28] MEDS: FUROSEMIDE 10 MG/ML 10 ML VIAL IV STA (09:56)
--- NOTE | 2023-07-28 10:17 | P.PN ---
Subjective Patient is seen in follow-up for acute kidney injury on chronic kidney disease. Renal function worse. Urine output 20 to 30 cc an hour. Receiving tube feeds. Also on normal saline. Intubated. Vital signs are stable. General: Resting in bed. HEENT: Intubated. LUNGS: Scattered rhonchi. HEART: Rate and Rhythm are regular. ABDOMEN: Obese. EXTREMITITES: 1+ edema. Objective - Vital Signs Vital signs: Vital Signs Temp 98.4 F 07/28/23 08:00 Pulse 62 07/28/23 08:00 Resp 18 07/28/23 08:00 BP 128/64 07/28/23 08:00 Pulse Ox 100 07/28/23 08:00 FiO2 40 07/28/23 08:02 Intake & Output 07/27/23 07/28/23 07/28/23 18:59 06:59 18:59 Intake Total 6722.518 7091 204.251 Output Total 420 415 45 Balance 6534.800 5717 159.251 Intake: IV 879.3 1114 181.0 0.9 835 975 150 Cefepime 1 gm In Sodium 25.0 Chloride 0.9% 50 ml @ 12. 5 mls/hr IVPB Q12HR [facility] Rx#:[id number] Cefepime 2 gm In Sodium 100 Chloride 0.9% 100 ml @ 25 mls/hr IVPB Q12HR [facility] Rx #:[id number] Dextrose/Water 1 250ml. 8.3 bag @ 2.5 MCG/KG/MIN 4. 167 mls/hr IV .Q24H [facility] with DOPamine DRIP 800 mg Rx#:[id number] pressure bag 36 39 6 Intake, IV Titration 91.278 0 23.251 Amount propofoL 1,000 mg In 91.278 0 23.251 Empty Bag 1 bag @ 15 MCG/ KG/MIN 7.267 mls/hr IV . [id number] [facility] Rx#:[id number] Tube Feeding 444 481 Other 120 90 Output: Urine 420 415 45 Other: Voiding Method Indwelling Catheter Indwelling Catheter ABP, PAP, CO, CI - Last Documented Arterial Blood Pressure 118/43 - Labs CBC & Chem 7: 07/28/23 05:00 07/28/23 05:00 Labs: Abnormal Lab Results - Last 24 Hours (Table) 07/27/23 07/27/2324 Range/Units 11:30 15:59 19:38 WBC (3.8-10.6) k/uL RBC (4.30-5.90) m/uL Hgb (13.0-17.5) gm/dL Hct (39.0-53.0) % RDW (11.5-15.5) % Plt Count (150-450) k/uL ABG Total CO2 (19-24) mmol/L ABG O2 Saturation (94-97) % Sodium (137-145) mmol/L Chloride (98-107) mmol/L Carbon Dioxide (22-30) mmol/L BUN (9-20) mg/dL Creatinine (0.66-1.25) mg/dL Glucose (74-99) mg/dL POC Glucose (mg/dL) 235 H 201 H 152 H (70-110) mg/dL Calcium (8.4-10.2) mg/dL Phosphorus (2.5-4.5) mg/dL 07/27/23 07/28/23 07/28/23 Range/Units 23:22 03:03 05:00 WBC 19.0 H (3.8-10.6) k/uL RBC 2.41 L (4.30-5.90) m/uL Hgb 7.2 L (13.0-17.5) gm/dL Hct 22.1 L (39.0-53.0) % RDW 15.9 H (11.5-15.5) % Plt Count 119 L (150-450) k/uL ABG Total CO2 (19-24) mmol/L ABG O2 Saturation (94-97) % Sodium (137-145) mmol/L Chloride (98-107) mmol/L Carbon Dioxide (22-30) mmol/L BUN (9-20) mg/dL Creatinine (0.66-1.25) mg/dL Glucose (74-99) mg/dL POC Glucose (mg/dL) 159 H 163 H (70-110) mg/dL Calcium (8.4-10.2) mg/dL Phosphorus (2.5-4.5) mg/dL 07/28/23 07/28/23 07/28/23 Range/Units 05:00 05:00 05:54 WBC (3.8-10.6) k/uL RBC (4.30-5.90) m/uL Hgb (13.0-17.5) gm/dL Hct (39.0-53.0) % RDW (11.5-15.5) % Plt Count (150-450) k/uL ABG Total CO2 25 H (19-24) mmol/L ABG O2 Saturation 97.7 H (94-97) % Sodium 130 L (137-145) mmol/L Chloride 97 L (98-107) mmol/L Carbon Dioxide 20 L (22-30) mmol/L BUN 88 H (9-20) mg/dL Creatinine 3.18 H (0.66-1.25) mg/dL Glucose 143 H (74-99) mg/dL POC Glucose (mg/dL) (70-110) mg/dL Calcium 7.5 L (8.4-10.2) mg/dL Phosphorus 8.2 H (2.5-4.5) mg/dL 07/28/23 Range/Units 07:58 WBC (3.8-10.6) k/uL RBC (4.30-5.90) m/uL Hgb (13.0-17.5) gm/dL Hct (39.0-53.0) % RDW (11.5-15.5) % Plt Count (150-450) k/uL ABG Total CO2 (19-24) mmol/L ABG O2 Saturation (94-97) % Sodium (137-145) mmol/L Chloride (98-107) mmol/L Carbon Dioxide (22-30) mmol/L BUN (9-20) mg/dL Creatinine (0.66-1.25) mg/dL Glucose (74-99) mg/dL POC Glucose (mg/dL) 180 H (70-110) mg/dL Calcium (8.4-10.2) mg/dL Phosphorus (2.5-4.5) mg/dL Microbiology - Last 24 Hours (Table) 07/22/23 10:45 Blood Culture - Final Blood 07/22/23 08:15 Blood Culture - Final Blood Assessment and Plan Plan: Assessment: 1. Status post liver and kidney transplant in 2016 performed at [facility]. Currently on IV steroids. 2. Acute kidney injury secondary to ATN secondary to cardiac arrest. Creatinine 3.18 today. 3. Chronic kidney disease stage IIIa with baseline creatinine 1.4-1.6 secondary to solitary kidney and long-term CNI use. 4. Bradycardia with PEA arrest. Dopamine discontinued. 5. Acute left parietal and occipital CVA. 6. Multiple liver lesions noted concerning for malignancy. Biopsy results pending. 7. Hyponatremia secondary to acute kidney injury. Hypervolemic. 8. Hyperkalemia secondary to acute kidney injury, acidosis and Prograf. Better. 9. Metabolic acidosis secondary to acute kidney injury and IV fluids. Plan: Hep-Lock IV fluids. Lasix 60 mg IV once today. Maintain tube feeds. Maintain IV steroids. CellCept and Prograf held. Prograf level 14.7 dated July 24, 2023. Follow-up repeat level. Avoid nephrotoxins. Prognosis guarded. Continue to monitor renal function and urine output. Repeat potassium level this evening. Preserved EF noted on echo.
--- NOTE | 2023-07-28 10:36 | P.PN ---
Subjective Progress Note Date: 07/27/23 Patient was seen for follow-up. Patient's was also present. Patient continues to be on propofol, and dopamine. Patient continues to have some focal twitching on the right side of the facial region. This gets more prominent with stimulus induced. Patient continues to be comatose. Objective - Vital Signs Vital signs: Vital Signs Temp 98.7 F 07/27/23 12:00 Pulse 72 07/27/23 18:00 Resp 14 07/27/23 18:00 BP 132/61 07/27/23 18:00 Pulse Ox 99 07/27/23 18:00 FiO2 40 07/27/23 16:00 Intake & Output 07/26/23 07/27/23 07/27/23 18:59 06:59 18:59 Intake Total 2224.450 5338.286 2734.578 Output Total 200 386 420 Balance 2024.450 777.744 0815.578 Weight 95.7 kg 93.4 kg Intake: IV 326 547.3 879.3 0.9 90 120 835 Cefepime 2 gm In Sodium 100 Chloride 0.9% 100 ml @ 25 mls/hr IVPB Q12HR [facility] Rx #:[id number] Dextrose/Water 1 250ml. 91.3 8.3 bag @ 2.5 MCG/KG/MIN 4. 167 mls/hr IV .Q24H [facility] with DOPamine DRIP 800 mg Rx#:[id number] Sodium Chloride 0.45% 1, 100 300 000 ml @ 100 mls/hr IV . [id number] [facility] with Sodium Bicarb (1 Meq/ml) 150 ml Rx#:[id number] pressure bag 36 36 36 Intake, IV Titration 1277.450 197.439 91.278 Amount Dextrose/Water 1 250ml. 91.3 8.3 bag @ 2.5 MCG/KG/MIN 4. 167 mls/hr IV .Q24H [facility] with DOPamine DRIP 800 mg Rx#:[id number] Sodium Chloride 0.45 % 1, 1100 100 000 ml @ 100 mls/hr IV . Q11H [facility] with Sodium Bicarb (1 Meq/ml) 100 ml Rx#:[id number] propofoL 1,000 mg In 86.150 89.139 91.278 Empty Bag 1 bag @ 15 MCG/ KG/MIN 7.267 mls/hr IV . [id number] [facility] Rx#:[id number] Tube Feeding 491 444 444 Other 130 150 120 Output: Urine 200 386 420 Other: Voiding Method Indwelling Catheter Indwelling Catheter Indwelling Catheter ABP, PAP, CO, CI - Last Documented Arterial Blood Pressure 134/53 - Exam Patient's pupils are equal, round and reacting, oculocephalics mildly present. Corneals present. Patient is breathing over the ventilator. Patient does not respond to calling his name, or with painful stimuli. However he does exhibit increasing right facial twitching with noxious stimuli. Sometimes it happens sporadically as well. With noxious stimulus, some right biceps twitching was no mynor. - Labs CBC & Chem 7: 07/28/23 05:00 07/28/23 05:00 Labs: Abnormal Lab Results - Last 24 Hours (Table) 07/26/23 07/26/23 07/26/23 Range/Units 09:40 09:40 20:13 WBC (3.8-10.6) k/uL RBC (4.30-5.90) m/uL Hgb (13.0-17.5) gm/dL Hct (39.0-53.0) % RDW (11.5-15.5) % Plt Count (150-450) k/uL ABG pO2 (83-108) mmHg ABG Total CO2 (19-24) mmol/L ABG O2 Saturation (94-97) % Sodium (137-145) mmol/L Potassium (3.5-5.1) mmol/L Chloride (98-107) mmol/L BUN (9-20) mg/dL Creatinine (0.66-1.25) mg/dL Glucose (74-99) mg/dL POC Glucose (mg/dL) 239 H (70-110) mg/dL Calcium (8.4-10.2) mg/dL Phosphorus (2.5-4.5) mg/dL AST (17-59) U/L ALT (4-49) U/L Alkaline Phosphatase (38-126) U/L Total Protein (6.3-8.2) g/dL Albumin (3.5-5.0) g/dL Carcinoembryonic Ag >4500.0 H (0.0-4.9) ng/mL CA 19-9 Antigen >86239.0 H (0.0-34.9) U/mL 07/27/23 07/27/23 07/27/23 Range/Units 00:25 04:39 04:39 WBC 21.6 H (3.8-10.6) k/uL RBC 2.47 L (4.30-5.90) m/uL Hgb 7.2 L (13.0-17.5) gm/dL Hct 23.1 L (39.0-53.0) % RDW 15.8 H (11.5-15.5) % Plt Count 133 L (150-450) k/uL ABG pO2 (83-108) mmHg ABG Total CO2 (19-24) mmol/L ABG O2 Saturation (94-97) % Sodium 129 L (137-145) mmol/L Potassium 5.2 H (3.5-5.1) mmol/L Chloride 94 L (98-107) mmol/L BUN 74 H (9-20) mg/dL Creatinine 2.95 H (0.66-1.25) mg/dL Glucose 231 H (74-99) mg/dL POC Glucose (mg/dL) 252 H (70-110) mg/dL Calcium 7.4 L (8.4-10.2) mg/dL Phosphorus 8.0 H (2.5-4.5) mg/dL AST 599 H (17-59) U/L ALT 213 H (4-49) U/L Alkaline Phosphatase 634 H (38-126) U/L Total Protein 4.7 L (6.3-8.2) g/dL Albumin 2.1 L (3.5-5.0) g/dL Carcinoembryonic Ag (0.0-4.9) ng/mL CA 19-9 Antigen (0.0-34.9) U/mL 07/27/23 07/27/23 07/27/23 Range/Units 04:39 06:19 08:11 WBC (3.8-10.6) k/uL RBC (4.30-5.90) m/uL Hgb (13.0-17.5) gm/dL Hct (39.0-53.0) % RDW (11.5-15.5) % Plt Count (150-450) k/uL ABG pO2 111 H (83-108) mmHg ABG Total CO2 25 H (19-24) mmol/L ABG O2 Saturation 98.4 H (94-97) % Sodium (137-145) mmol/L Potassium (3.5-5.1) mmol/L Chloride (98-107) mmol/L BUN (9-20) mg/dL Creatinine (0.66-1.25) mg/dL Glucose (74-99) mg/dL POC Glucose (mg/dL) 255 H 248 H (70-110) mg/dL Calcium (8.4-10.2) mg/dL Phosphorus (2.5-4.5) mg/dL AST (17-59) U/L ALT (4-49) U/L Alkaline Phosphatase (38-126) U/L Total Protein (6.3-8.2) g/dL Albumin (3.5-5.0) g/dL Carcinoembryonic Ag (0.0-4.9) ng/mL CA 19-9 Antigen (0.0-34.9) U/mL 07/27/23 07/27/23 Range/Units 11:30 15:59 WBC (3.8-10.6) k/uL RBC (4.30-5.90) m/uL Hgb (13.0-17.5) gm/dL Hct (39.0-53.0) % RDW (11.5-15.5) % Plt Count (150-450) k/uL ABG pO2 (83-108) mmHg ABG Total CO2 (19-24) mmol/L ABG O2 Saturation (94-97) % Sodium (137-145) mmol/L Potassium (3.5-5.1) mmol/L Chloride (98-107) mmol/L BUN (9-20) mg/dL Creatinine (0.66-1.25) mg/dL Glucose (74-99) mg/dL POC Glucose (mg/dL) 235 H 201 H (70-110) mg/dL Calcium (8.4-10.2) mg/dL Phosphorus (2.5-4.5) mg/dL AST (17-59) U/L ALT (4-49) U/L Alkaline Phosphatase (38-126) U/L Total Protein (6.3-8.2) g/dL Albumin (3.5-5.0) g/dL Carcinoembryonic Ag (0.0-4.9) ng/mL CA 19-9 Antigen (0.0-34.9) U/mL Microbiology - Last 24 Hours (Table) 07/22/23 08:15 Blood Culture - Final Blood Assessment and Plan Assessment: * Status postcardiac arrest 07/22/2023 with downtime of about 7 minutes. Patient also had hypoglycemia at that time with blood sugar 25. 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 * Abnormal focal twitching right facial region, rule out focal seizure. Initial EEG did not reveal any epileptiform activity. * Acute ischemic stroke, large size involving watershed territory between the left MCA/NICO. There is also evidence of a small area of acute infarction in the right anterior frontal lobe between the right NICO/MCA territory. * Possible metastatic cancer. Unknown primary yet. Status post liver biopsy. * Hyponatremia * Hyperkalemia * Chronic renal failure * Elevated liver enzymes * Anemia * Elevated troponin. * History of kidney and liver transplant in 2016 * History of polysubstance abuse, hepatitis C, treated. * Hypertension * Hyperlipidemia Plan: * Initial EEG performed 07/26/2023 was severely abnormal due to presence of periods of suppression, intermixed with some low amplitude 2 to 3 Hz delta slowing suggestive of generalized cerebral dysfunction as can be seen with anoxic, or severe toxic metabolic encephalopathy or related to diffuse structural brain abnormality. Clinical correlation is recommended. No epileptiform activity was seen. No electrographic seizure was recorded. * Clinically, patient is having some intermittent right facial twitching, particularly evoked with noxious stimulus. Continue Keppra for seizure prophylaxis. * CT scan of the head revealed a very large watershed ischemic stroke between left NICO and left MCA territory involving the frontal, parietal and occipital lobes. No mass effect or midline shift. No hemorrhage. * Patient is [id number], therefore the major portion of stroke is involving the dominant hemisphere. This may have significant implications with right hemiparesis and probable significant speech, and memory deficits. * Based upon this large stroke, recent cardiac arrest, and possible suspected metastatic cancer, the prognosis remains very poor for meaningful recovery. * Patient is day 5 postcardiac arrest, and is still comatose with GCS of 3. * Discussed with patient's regarding the result of CT head, which also sh ows an additional small area of ischemic infarction involving the right frontal region between NICO/MCA territory. Overall this watershed territory infarct could be related to hypoperfusion during cardiac arrest. * Discussed with patient's and nursing staff in detail. * Patient had undergone ultrasound-guided liver biopsy today. Being worked up for possible metastatic cancer. Path report pending. * Other medical management as per IM and other specialties involved. * Check carotid Doppler rule out stenosis. * Start aspirin 325 mg daily, but patient is allergic to nonsteroidals.
[2023-07-28 11:46] LABS: Glucose,Whole Blood 189 mg/dL (70-110)
--- NOTE | 2023-07-28 13:29 | P.PN ---
Subjective Progress Note Date: 07/28/23 72-year-old black male, who [facility], is seen in the emergency department, on July 18, for shortness of breath. The patient apparently has been having shortness of breath, since being discharged from [facility]. Recently, the patient was started on a fentanyl patch for back pain, but denies all other medications. He apparently was admitted at the other hospital, for total of 4 days according to his , and was found to have some lesions on his liver and lung. The patient is apparently awaiting an outpatient PET scan. He did see one of the cancer doctors at the other facility. Currently, the patient is seen in ER room 28. The patient is currently on BiPAP, with settings of 12/6 and 28%. According to his he has a history of liver and kidney transplantation. He is getting saline at 75 cc an hour. He apparently had a chest x-ray that was interpreted as normal, and a VQ scan that was interpreted as being very low probability for pulmonary embolism. He does not use oxygen at home. He quit smoking 43 years ago. He had a blood gas showing a pO2 of 124, pCO2 of 35, and a pH of 7.30. This is consistent with metabolic acidosis. His other medical history includes gastroesophageal reflux disease, hypertension, hyperlipidemia, liver kidney transplant at [facility] in 2016, diabetes, and gout. The patient is a former smoker, having quit some 43 years ago as mentioned above. Current labs include a white count of 16.2, hemoglobin 8.4, hematocrit 27.6, and a platelet count of 268,000. Sodium 126, potassium 5.2, chlorides 102, CO2 18, BUN 35, and creatinine 1.63. Calcium is 8.5. Glucose is 161. The patient has a nonanion gap metabolic acidosis, likely from his renal insufficiency/failure. The patient has a couple different chest x- rays, which did not show acute cardiopulmonary disease. Progress note dated July 22, 2023. The patient was seen yesterday in consultation, when he was in the emergency department. The patient was admitted to the floor. Sometime early this morning, the patient developed bradycardia, and pulseless electrical activity. At that time, the patient's blood glucose was only 25. The patient was intubated, for respiratory failure, transferred to the intensive care unit. He is currently in the ICU, on the ventilator. Settings include volume assist- control, rate 20, tidal volume 450, FiO2 50%, PEEP of 5. Blood gases show pO2 of 243, pCO2 42, and a pH of 7.25. The patient is getting dextrose with half- normal saline at 75 cc an hour, propofol at 50 mcg/kg/min. He remains on Levaquin. His procalcitonin level was elevated at 4.10. Current labs include a white count 19.4, hemoglobin 8.2, hematocrit 27.3, and a platelet count of 2 62,000. Sodium 131, potassium 5.2, chlorides 104, CO2 17, anion gap 10, BUN 31, and creatinine 1.46. Glucose is 120. AST is 138. ALT is 87. Alkaline phosphatase is 620. Procalcitonin level was 4.10. He tested negative for influenza, RSV, and coronavirus. Chest x-ray shows the tip of the central venous catheter, at the junction of the superior vena cava and right atrium. Chest x-ray also suggest some pulmonary vascular congestion. Progress note dated July 23, 2023. 72-year-old black male, seen in follow-up, room 259. The patient remains on the mechanical ventilator. Current vent settings include volume assist-control, rate 20, tidal volume 450, FiO2 50%. PEEP of 5. Blood gases show pO2 176, pCO2 33, pH is 7.31. The patient is getting saline at 75 cc an hour, propofol at 40 mcg/kg/min. Currently, norepinephrine is on hold. He is getting vital AF at 30, with a goal of 42. He continues on cefepime. We did attempt a daily interruption of sedation, but he did poorly and, we could not do a spontaneous breathing trial. He was placed back on the ventilator. Current labs include a white count of 13.1, hemoglobin 7.9, hematocrit 25.4, and a normal platelet count. Sodium 127, potassium 5, chlorides 106, CO2 15, BUN 32, creatinine 1.32. Glucose is 185. Calcium is 8. Chest x-ray shows a properly positioned endotracheal tube. In addition, there may be an infiltrate in the right lung, with volume loss in the right lung, and a small right-sided pleural effusion. On today's evaluation of 07/24/2023, the patient is being seen for a follow-up. Patient cardiac arrest and the patient remains intubated on mechanical ventilator. Noted the patient was intubated on 07/22/2023 following cardiac arrest that followed an episode of bradycardia followed by pulseless electrical activity. During that time, the patient was also hypoglycemic. Noted the patient is a very complicated history of liver and kidney transplant and the patient has undergone his transportation back in 2016 at [facility]. The patient has been maintained on immunosuppressive agents with a combination of CellCept and Prograf and low-dose prednisone on an outpatient basis. Note that the CellCept is currently on hold and the patient remains on a combination of Prograf and low-dose prednisone. On a separate note, a CAT scan of the chest that was done also on this patient at [facility] showed extensive bilateral pulmonary nodules which raise the possibility of underlying metastatic disease/infection/post transplant lymphoproliferative disorder. If final diagnosis not been made at this point in time. In fact, the patient is currently on a mechanical ventilator, and is afebrile. He is on assist-control mode of mechanical ventilation at rate of 20, tidal volume of 450, FiO2 is at 40% with a PEEP of 5. The blood gas showing a pH of 7.3 with a pCO2 of 30 and pO2 of 146. Peak airway pressure is around 15. IV fluids are currently at KVO. The patient is currently on vital AF at rate of 42 to cc an hour for enteral feeding and nutritional support. He is currently on no pressors. The WBC count of 15.2 with a hemoglobin of 7.7 and a platelet count of 165. The serum bicarb is at 12 with a sodium level of 126 and a potassium level of 5.2. BUN is at 42 with a creatinine of 1.8. LFTs remain abnormal with an AST of 58, ALT of 52 and an alkaline phosphatase of 596. Serum protein is at 2.0. The blood cultures are still pending, sputum culture also pending. The patient is currently hemodynamically stable on no pressors. He is known to have hypertension hyperlipidemia and diabetes mellitus type 2 and history of gout. Has echocardiogram that was done on 07/20/2023 showed preserved LV function without any significant valvular abnormalities and mild pulmonary hypertension was also seen. CAT scan of the brain done postarrest showed no acute intracranial process. Ultrasound of the abdomen and the bladder showed heterogeneous liver lesions the significance of which was not known. Possibility of hepatic metastasis cannot be completely ruled out. Postoperative dilatation of the common bile duct was seen and the transplanted kidney was noted. The patient's original kidneys are quite atrophic at this point in time. His procalcitonin level was 4.0 at the time of admission. On today's evaluation of 07/25/2023, the patient is being seen for a follow-up. Patient remains sedated on propofol which is running at 30 mcg/kg/min. Events from yesterday evening was noted. The patient had high degree AV block and she had Mobitz type II and episodes of third-degree AV block. Based on that, cardiology has been involved and the patient was started on dopamine at 5 mcg/kg/min. His current rhythm is sinus bradycardia. Note that the patient's echocardiogram showed a preserved LV function. Troponins will be rechecked and foundry engineer on the case for now. He remains intubated on mechanical ventilator. He is calm and comfortable. He is on assist-control mode at rate of 20, tidal volume of 450, FiO2 of 40% with a PEEP of 5. Blood gas showed a pH of 7.33 with a pCO2 of 33 and pO2 of 75. The chest x-ray from today shows no significant interval change and some atelectasis and small effusion in the right lung base. Orotracheal tube remains in a good location. CAT scan of the abdomen and pelvis was also done yesterday and it showed mid to distal small bowel loops being compressed. Mild partial small bowel obstruction/ileus cannot be completely excluded. The patient has extensive metastases to his liver along with ascites within the pelvis. There is also a loculated pleural effusion in the right lung base. Empyema is felt to be less likely at this point in time based on the clinical presentation. The patient is currently has a white cell count of 16.2 with a hemoglobin 7.4 and a platelet count of 136. The sodium is at 126, potassium is at 4.9 and serum bicarb is at 15 with a BUN of 46 and a creatinine of 2.35. LFTs show an AST of 145, ALT of 65, alkaline phosphatase of 527, and total protein of 4.3 with an albumin of 1.9. The Prograf level was 14.7. Nephrology on the case. Cardiology has also been consulted regarding the high degree AV block. Meanwhile, the patient is taking enteral feeding for nu tritional support and the patient is on vital AF At the rate of 44 cc an hour. On today's evaluation of 07/26/2023, the patient is being seen for a follow-up. The patient this morning is having jerking movement in his right upper extremity. This is very automatic and repetitive. Seizure was considered. Noted the patient is still on propofol running at 20 mcg/kg/min. Cardiac rhythm is first-degree AV block without any significant bradycardia arrhythmias noted yesterday the patient remains on dopamine at 5 mcg/kg/min. The patient is also on a bicarb infusion with a total of 2 ampoules of sodium bicarb and half-normal saline at rate of 100 cc an hour. He remains on mechanical ventilator settings of 20, tidal volume of 450, FiO2 40% with a PEEP of 5. Blood gas showed pH of 7.37 with a pCO2 of 79 and pO2 of 86. Initial CAT scan of the brain was negative. Repeat CAT scan of the brain will be needed specially there is underlying suspected seizure activity. The blood work from today shows a sodium level of 129 and a potassium level of 6.1. The patient was treated accordingly with Lokelma and the patient was also given D50 insulin and she is already on a bicarb infusion. She was also given calcium. Repeat potassium was down to 5.6. At the same time, the patient's BUN is at 63 with a creatinine of 2.81. Bicarb level is at 22. Blood sugars at 245 and the patient on Levemir insulin 13 units along with a sliding scale coverage. White cell count of 24.5 with a hemoglobin of 7.1. Repeat chest x-ray was done today and the patient was found to have the ET tube being around 3 cm above the divine. Smaller lung volumes and generalized haziness along with some atelectatic changes. All of the lines are in good location. The patient is afebrile at this point in time. On 07/28/2023, the patient is being seen for a follow-up. Unresponsive despite being off propofol and fentanyl for approximately 48 hours. Grimaces only to deep painful stimulation. 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 He was also having episodes of seizure activity, focal seizure involving the left upper extremity. The patient was given Ativan and subsequently patient was started on Vimpat 100 mg IV every 12 hours. The patient is also on Keppra 5 mg every 12 hours. No visible seizures. EEG was done today. Meanwhile, we are still awaiting the biopsy results from the liver. The CEA level was very much elevated and so was the CA 19-9 level. The patient remains intubated on mechanical ventilator. The patient is in a first-degree AV block. Dopamine has been discontinued. No pressors at this point in time. He remains on assist-control mode rate of 20, tidal volume of 400, FiO2 40% with a PEEP of 5. Blood gas showed pH of 7.37 with a pCO2 of 40 and pO2 of 100. The chest x-ray finding shows a small right-sided pleural effusion and scattered bilateral pulmonary nodules. Sodium was at 130 with a potassium level of 5, bicarb is at 20 with a BUN of 88 and a creatinine of 3.18. There is close of 19 with a hemoglobin of 7.2 and a platelet count of 119. Remains on IV cefepime as an empiric antibiotic coverage. The patient is receiving enteral feeding for nutritional support with Nepro at rate of 37 cc an hour. The patient on Lovenox for DVT prophylaxis. No other significant events otherwise for now. Had a nice discussion with the family and discussed the poor prognosis and outcome of this patient especially with the concern of malignancy. Objective - Vital Signs Vital signs: Vital Signs Temp 98.4 F 07/28/23 08:00 Pulse 62 07/28/23 08:00 Resp 18 07/28/23 08:00 BP 128/64 07/28/23 08:00 Pulse Ox 100 07/28/23 08:00 FiO2 40 07/28/23 08:02 Intake & Output 07/27/23 07/28/23 07/28/23 18:59 06:59 18:59 Intake Total 7255.516 5707 204.251 Output Total 420 415 45 Balance 3243.128 1092 159.251 Intake: IV 879.3 1114 181.0 0.9 835 975 150 Cefepime 1 gm In Sodium 25.0 Chloride 0.9% 50 ml @ 12. 5 mls/hr IVPB Q12HR [facility] Rx#:[id number] Cefepime 2 gm In Sodium 100 Chloride 0.9% 100 ml @ 25 mls/hr IVPB Q12HR [facility] Rx #:[id number] Dextrose/Water 1 250ml. 8.3 bag @ 2.5 MCG/KG/MIN 4. 167 mls/hr IV .Q24H [facility] with DOPamine DRIP 800 mg Rx#:[id number] pressure bag 36 39 6 Intake, IV Titration 91.278 0 23.251 Amount propofoL 1,000 mg In 91.278 0 23.251 Empty Bag 1 bag @ 15 MCG/ KG/MIN 7.267 mls/hr IV . [id number] [facility] Rx#:[id number] Tube Feeding 444 481 Other 120 90 Output: Urine 420 415 45 Other: Voiding Method Indwelling Catheter Indwelling Catheter ABP, PAP, CO, CI - Last Documented Arterial Blood Pressure 118/43 - Exam No acute distress, intubated, and patient remains unresponsive despite being off sedatives for the past 48 hours. No active seizures at this point in time. The patient is calm and comfortable and the patient is currently sedated on propofol. The orotracheal and orogastric tube are both in place. Head exam was generally normal. There was no scleral icterus or corneal arcus. Mucous membranes were moist. HEENT examination is grossly unremarkable. Neck supple. Full range of motion. No adenopathy thyromegaly or neck vein distention. Cardiovascular examination reveals regular rhythm rate. S1-S2 normal. No S3 or S4. No discernible murmur noted. Heart sounds are distant. Lungs reveal clear breath sounds. Breath sounds are equal bilaterally. No adventitious lung sounds including wheezes rhonchi or crackles. Abdomen soft bowel sounds are heard. No masses or tenderness. Extremities are intact. No cyanosis clubbing or edema. Skin is without rash or lesion. Neurologic examination cannot be assessed at this time. Patient is sedated and is calm and comfortable. No seizure activity has been noted. The patient is only grimacing to deep painful stimulation. Does not withdrawal. Sensorimotor function cannot be accurately assessed. However, no facial asymmetry. Pupils sluggishly reactive to light at 3 mm. No nystagmus. No preferential gaze. No Babinski. - Labs CBC & Chem 7: 07/28/23 05:00 07/28/23 05:00 Labs: Abnormal Lab Results - Last 24 Hours (Table) 07/27/23 07/27/23 07/27/23 Range/Units 11:30 15:59 19:38 WBC (3.8-10.6) k/uL RBC (4.30-5.90) m/uL Hgb (13.0-17.5) gm/dL Hct (39.0-53.0) % RDW (11.5-15.5) % Plt Count (150-450) k/uL ABG Total CO2 (19-24) mmol/L ABG O2 Saturation (94-97) % Sodium (137-145) mmol/L Chloride (98-107) mmol/L Carbon Dioxide (22-30) mmol/L BUN (9-20) mg/dL Creatinine (0.66-1.25) mg/dL Glucose (74-99) mg/dL POC Glucose (mg/dL) 235 H 201 H 152 H (70-110) mg/dL Calcium (8.4-10.2) mg/dL Phosphorus (2.5-4.5) mg/dL 07/27/23 07/28/23 07/28/23 Range/Units 23:22 03:03 05:00 WBC 19.0 H (3.8-10.6) k/uL RBC 2.41 L (4.30-5.90) m/uL Hgb 7.2 L (13.0-17.5) gm/dL Hct 22.1 L (39.0-53.0) % RDW 15.9 H (11.5-15.5) % Plt Count 119 L (150-450) k/uL ABG Total CO2 (19-24) mmol/L ABG O2 Saturation (94-97) % Sodium (137-145) mmol/L Chloride (98-107) mmol/L Carbon Dioxide (22-30) mmol/L BUN (9-20) mg/dL Creatinine (0.66-1.25) mg/dL Glucose (74-99) mg/dL POC Glucose (mg/dL) 159 H 163 H (70-110) mg/dL Calcium (8.4-10.2) mg/dL Phosphorus (2.5-4.5) mg/dL 07/28/23 07/28/23 07/28/23 Range/Units 05:00 05:00 05:54 WBC (3.8-10.6) k/uL RBC (4.30-5.90) m/uL Hgb (13.0-17.5) gm/dL Hct (39.0-53.0) % RDW (11.5-15.5) % Plt Count (150-450) k/uL ABG Total CO2 25 H (19-24) mmol/L ABG O2 Saturation 97.7 H (94-97) % Sodium 130 L (137-145) mmol/L Chloride 97 L (98-107) mmol/L Carbon Dioxide 20 L (22-30) mmol/L BUN 88 H (9-20) mg/dL Creatinine 3.18 H (0.66-1.25) mg/dL Glucose 143 H (74-99) mg/dL POC Glucose (mg/dL) (70-110) mg/dL Calcium 7.5 L (8.4-10.2) mg/dL Phosphorus 8.2 H (2.5-4.5) mg/dL 07/28/23 Range/Units 07:58 WBC (3.8-10.6) k/uL RBC (4.30-5.90) m/uL Hgb (13.0-17.5) gm/dL Hct (39.0-53.0) % RDW (11.5-15.5) % Plt Count (150-450) k/uL ABG Total CO2 (19-24) mmol/L ABG O2 Saturation (94-97) % Sodium (137-145) mmol/L Chloride (98-107) mmol/L Carbon Dioxide (22-30) mmol/L BUN (9-20) mg/dL Creatinine (0.66-1.25) mg/dL Glucose (74-99) mg/dL POC Glucose (mg/dL) 180 H (70-110) mg/dL Calcium (8.4-10.2) mg/dL Phosphorus (2.5-4.5) mg/dL Microbiology - Last 24 Hours (Table) 07/22/23 10:45 Blood Culture - Final Blood 07/22/23 08:15 Blood Culture - Final Blood Assessment and Plan Plan: Acute cardiac arrest with a normal echocardiogram and no ongoing cardiac arrhythmias. The patient had a episode of bradycardia followed by PEA. During the same time, the patient was hypoglycemic. This could have been a acute hypoglycemic event. Currently debated on mechanical ventilator and the patient is currently hemodynamically stable. The patient remains on mechanical ventilator, the patient remains unresponsive at this point in time. Acute hypoxic respiratory failure postcardiac arrest and the patient is requiring intubation mechanical ventilation, chest x-ray and blood gas from today were noted Shortness of breath under investigation. CAT scan of the chest that was done in outside hospital showed multiple bilateral pulmonary nodules/micronodules and obviously differential diagnosis regarding this abnormality is quite extensive specially with his underlying immunosuppressive state. Possibilities include malignancy i as the patient also has extensive hepatic metastatic lesions and a biopsy of the liver was done. CEA and CA 19-9 levels were considerably elevated. Awaiting final pathologic findings from liver biopsy. High degree AV block, with a present LV function and the patient is currently on dopamine at 5 mcg/kg/min. Current cardiac rhythm is first-degree AV block and the patient off dopamine for now History of kidney/liver transplantation, September 2015, at [facility]. Patient has been maintained on a combination of Prograf, CellCept and prednisone, based on worsening renal function, Prograf was discontinued and the patient was also taken off CellCept and the patient is currently on stress dose hydrocortisone. The renal function is stable and being monitored. Chronic kidney disease, posttransplantation, with a component of an acute kidney injury with some mild hyperkalemia, treated and a potassium level is stable Multiple hepatic lesions, case was discussed with interventional radiology. Suspect pancreatic cancer. Fine-needle aspirate of the liver mass is to be done today. Elevated CEA and CA 19-9 level. Consider GI malignancy including possibility of pancreatic cancer. Diminished level of consciousness, unresponsive, off sedatives for the past 48 hours. CAT scan of the brain showed a infarct involving left occipital/parietal area. Seizure, likely focal seizures currently on a combination of Vimpat and Keppra. Right lower lobe pleural effusion Seizure with repetitive movement of the right upper extremity is suspected. The patient is currently on propofol. Chronic elevation of the alkaline phosphatase and a component of transaminitis which is essentially improving at this point in time. Recent evaluation at [facility], which revealed nodules on his liver and lung, rule out carcinoma. Awaiting fine-needle aspirate of the liver History of hypertension. History of hyperlipidemia. History of gastroesophageal reflux disease. History of diabetes, currently on Levemir insulin History of gout. Previous history of tobacco use. Enteral feeding for nutritional support Hyponatremia, sodium levels improved currently at 130 Plan: Keep the patient off sedatives for now Repeat CAT scan of the brain was noted and is consistent with infarct involving the left parietal and occipital lobes Awaiting results of the EEG and the patient is currently on a combination of Vimpat and Keppra and neurology on the case Continue off dopamine the patient is currently in a first-degree AV block discussed fluid management with nephrology. Will continue ventilator support for now. No vent changes for today. Awaiting final pathology results from the liver biopsy high suspicion for malignancy as the patient has elevated CEA and CA 19-9 level Metastatic liver disease, awaiting fine-needle aspirate of the liver masses. Keep immunosuppressive medication on hold and the patient is currently on stress dose hydrocortisone. Monitor potassium levels Continue enteral feeding for nutritional support Continue monitoring mentation. Condition is critical. Condition is critical and will coordinate care with infectious disease and neph rology. Continue Lovenox for DVT prophylaxis Continue IV cefepime Condition is critical we will continue to follow make further recommendations based on the progress. This evaluation was done more than 40 minutes. Time with Patient: Greater than 30
[2023-07-28] MEDS: Lacosamide IV (ages 17+ yrs) 200 MG/20 ML ML IVP SCH (13:59)
--- NOTE | 2023-07-28 15:14 | P.PN ---
Subjective Progress Note Date: 07/28/23 Pt underwent liver biopsy on 07/25, pending results. TB gold quant is indeterminate. CEA Ag > 4500, CA 19-9 is > 68555. Na is 129 today, Cr 2.95. WBC is 21.6, Hgb 7.2, PLT 133. Pts sedation being weaned today for trial of holiday to check mental status. General: intubated, sedated HEENT: normocephalic, atraumatic, no tracheal deviation Respiratory: symmetric chest rise, no cyanosis, ventilator dependent CVS: perfusing all extremities, no distal gangrene, bilateral pitting edema GI: soft, ND : no SPT, no CVAT, soriano is present Neuro: sedated Hospital Course: Patient is a 59-year-old male with BPH, carotid stenosis, cirrhosis, diabetes, end-stage renal disease status post renal and liver transplant no longer requiring hemodialysis, glaucoma, hypertension, and multiple other comorbid conditions who presented to the emergency department with complaints of shortne ss of breath. Patient had recently been at an outside hospital for abdominal and back pain they are workup revealed lesions in his liver, kidney, and lung and he was requiring Dilaudid [id number] for pain. He was discharged on a fentanyl patch with a PET scan scheduled for July with Dr. Wise. In the emergency department here he was noted to have a white blood cell count of 16, sodium 124, BUN 30, creatinine 1.76 (baseline creatinine 2), AST 241, ALT 153, alkaline phosphatase 669, and a D-dimer of 18.53. Patient was admitted with concerns for possible pulmonary embolism and he was started on Lovenox. He subsequently underwent a ventilation/perfusion scan which demonstrated low pr obability for pulmonary embolism. He underwent echocardiogram which demonstrated ejection fraction of 55 to 60% with mild aortic stenosis. Renal and bladder ultrasound demonstrated hepatic metastatic disease with transplanted kidneys and atrophic tangirnaq kidneys. Oncology was consulted. They recommended continuing pain control considering additional imaging and IR consultation. Patient was noted to have change in mentation and therefore underwent a CT of the head which demonstrated no acute intracranial process. He then became hypoxic requiring high flow nasal cannula and ultimately BiPAP. Pulmonary was consulted and added bronchodilators. On the morning of 07/21 patient was undergoing a BiPAP weaning trial when he lost pulses and CPR was initiated. He had ROSC after 2 rounds of epinephrine however his mental status did not improve and he was subsequently intubated and transferred to the ICU. He required norepinephrine for less than 24 hours. Infectious disease was consulted he recommended adding cefepime while awaiting cultures to finalize. Nephrology was consulted who recommended holding CellCept and continuing tacrolimus and prednisone. His Tacro was then held. Patient became bradycardiac overnight on 07/24 and cardio was consulted and the patient was started on a dobutamine gtt. Patient developed seizures early this morning and was given Ativan from critical care with resolution of seizure-like activity. Neurology was consulted. CT brain was ordered and patient was loaded with Keppra. He underwent liver biopsy on 07/26/23 Assessment/Plan: S/P Cardiac arrest Multiple lung and liver nodules, probable malignancy Intractable pain likely related to malignancy Acute hypoxic respiratory failure Transaminitis suspect secondary to liver lesions versus hepatitis C - s/p liver biopsy, pathology pending, discussed with Dr. Dobbs 07/27, this is likely neoplastic - Await further oncology recs - Await further ID recs - Cefepime 2 g IV piggyback twice daily D # 7 - Solucortef 100 mg IVP q 8 hours -- increased as it is now the only immunosupressant the patient is receiving. - Hold Lipitor due to elevated liver enzymes - Fentanyl 75 mcg patch has been continued. - DuoNebs every 4 hours and as needed Seizures Right Frontal and Left parietal and occipital lobe watershed infarcts, discussed these findings with Neurology Acute encephalopathy, possible anoxic -Await neurology consultation -Ideally patient would undergo MRI of able to come off of vent -EEG is severely abnormal due to generalized background suppression suggestive of generalized cerebral dysfunction -Keppra 500 mg every 12 hours -continue daily sedation holidays to assess mental status Episodes of complete heart block with unclear etiology NSTEMI - Off coreg - Cardiology note reviewed: Continue supportive care and stop IV dopamine - Dopamine discontinued - repeat echo with EF 65-60% Chronic kidney disease stage III status post renal and liver transplant Hyponatremia, possible SIADH Metabolic acidosis Hyperkalemia - Nephrology note reviewed: maintain tube feeds, maintain hydrocortisone, continue to hold tacro -IVF changed from bicarb to NS 75 cc/hr, lasix 60mg IV once today - Continue to hold tacrolimus, cellcept, and prednisone 2 mg daily - Continue to follow renal function Normocytic anemia - Follow CBC - No indication for transfusion at this time Diabetes mellitus type 2 with episodes of hypoglycemia - NovoLog 2 units every 6 hours in addition to sliding scale every 6 hours - Increase levemir to 28 units once daily - Follow blood sugars Chronic conditions BPH Carotid stenosis Hepatitis C Hypertension Dyslipidemia Osteoarthritis Vitamin D deficiency Pulmonary embolism ruled out Poor over all prognosis DVT prophylaxis: Lovenox Anticipated discharge date: Pending Clinical Course Anticipated discharge place: Pending Clinical Course This dictation was prepared using [employer] voice recognition software. Though every attempt is made to correct errors during dictation some may still exist. Objective - Vital Signs Vital signs: Vital Signs Temp 97.8 F 07/28/23 12:00 Pulse 67 07/28/23 13:00 Resp 26 H 07/28/23 13:00 BP 148/68 07/28/23 13:00 Pulse Ox 99 07/28/23 13:00 FiO2 40 07/28/23 12:00 Intake & Output 07/27/23 07/28/23 07/28/23 18:59 06:59 18:59 Intake Total 2708.633 6940 385.251 Output Total 420 415 235 Balance 0066.674 0954 150.251 Weight 93.4 kg Intake: IV 879.3 1114 321.0 0.9 835 975 250 Cefepime 1 gm In Sodium 50.0 Chloride 0.9% 50 ml @ 12. 5 mls/hr IVPB Q12HR [facility] Rx#:[id number] Cefepime 2 gm In Sodium 100 Chloride 0.9% 100 ml @ 25 mls/hr IVPB Q12HR [facility] Rx #:[id number] Dextrose/Water 1 250ml. 8.3 bag @ 2.5 MCG/KG/MIN 4. 167 mls/hr IV .Q24H [facility] with DOPamine DRIP 800 mg Rx#:[id number] pressure bag 36 39 21 Intake, IV Titration 91.278 0 23.251 Amount propofoL 1,000 mg In 91.278 0 23.251 Empty Bag 1 bag @ 15 MCG/ KG/MIN 7.267 mls/hr IV . [id number] [facility] Rx#:[id number] Tube Feeding 444 481 41 Other 120 90 Output: Urine 420 415 235 Other: Voiding Method Indwelling Catheter Indwelling Catheter Indwelling Catheter ABP, PAP, CO, CI - Last Documented Arterial Blood Pressure 121/49 - Labs CBC & Chem 7: 07/28/23 05:00 07/28/23 05:00 Labs: Abnormal Lab Results - Last 24 Hours (Table) 07/27/23 07/27/23 07/27/23 Range/Units 15:59 19:38 23:22 WBC (3.8-10.6) k/uL RBC (4.30-5.90) m/uL Hgb (13.0-17.5) gm/dL Hct (39.0-53.0) % RDW (11.5-15.5) % Plt Count (150-450) k/uL ABG Total CO2 (19-24) mmol/L ABG O2 Saturation (94-97) % Sodium (137-145) mmol/L Chloride (98-107) mmol/L Carbon Dioxide (22-30) mmol/L BUN (9-20) mg/dL Creatinine (0.66-1.25) mg/dL Glucose (74-99) mg/dL POC Glucose (mg/dL) 201 H 152 H 159 H (70-110) mg/dL Calcium (8.4-10.2) mg/dL Phosphorus (2.5-4.5) mg/dL 07/28/23 07/28/23 07/28/23 Range/Units 03:03 05:00 05:00 WBC 19.0 H (3.8-10.6) k/uL RBC 2.41 L (4.30-5.90) m/uL Hgb 7.2 L (13.0-17.5) gm/dL Hct 22.1 L (39.0-53.0) % RDW 15.9 H (11.5-15.5) % Plt Count 119 L (150-450) k/uL ABG Total CO2 (19-24) mmol/L ABG O2 Saturation (94-97) % Sodium 130 L (137-145) mmol/L Chloride 97 L (98-107) mmol/L Carbon Dioxide 20 L (22-30) mmol/L BUN 88 H (9-20) mg/dL Creatinine 3.18 H (0.66-1.25) mg/dL Glucose 143 H (74-99) mg/dL POC Glucose (mg/dL) 163 H (70-110) mg/dL Calcium 7.5 L (8.4-10.2) mg/dL Phosphorus (2.5-4.5) mg/dL 07/28/23 07/28/23 07/28/23 Range/Units 05:00 05:54 07:58 WBC (3.8-10.6) k/uL RBC (4.30-5.90) m/uL Hgb (13.0-17.5) gm/dL Hct (39.0-53.0) % RDW (11.5-15.5) % Plt Count (150-450) k/uL ABG Total CO2 25 H (19-24) mmol/L ABG O2 Saturation 97.7 H (94-97) % Sodium (137-145) mmol/L Chloride (98-107) mmol/L Carbon Dioxide (22-30) mmol/L BUN (9-20) mg/dL Creatinine (0.66-1.25) mg/dL Glucose (74-99) mg/dL POC Glucose (mg/dL) 180 H (70-110) mg/dL Calcium (8.4-10.2) mg/dL Phosphorus 8.2 H (2.5-4.5) mg/dL 07/28/23 Range/Units 11:44 WBC (3.8-10.6) k/uL RBC (4.30-5.90) m/uL Hgb (13.0-17.5) gm/dL Hct (39.0-53.0) % RDW (11.5-15.5) % Plt Count (150-450) k/uL ABG Total CO2 (19-24) mmol/L ABG O2 Saturation (94-97) % Sodium (137-145) mmol/L Chloride (98-107) mmol/L Carbon Dioxide (22-30) mmol/L BUN (9-20) mg/dL Creatinine (0.66-1.25) mg/dL Glucose (74-99) mg/dL POC Glucose (mg/dL) 189 H (70-110) mg/dL Calcium (8.4-10.2) mg/dL Phosphorus (2.5-4.5) mg/dL Microbiology - Last 24 Hours (Table) 07/22/23 10:45 Blood Culture - Final Blood 07/22/23 08:15 Blood Culture - Final Blood
[2023-07-28 16:18] LABS: Glucose,Whole Blood 176 mg/dL (70-110)
[2023-07-28] MEDS: INSULIN DETEMIR (LEVEMIR) 100 UNIT/ML SYR SQ STA (16:21)
--- NOTE | 2023-07-28 20:13 | P.PN ---
Subjective Progress Note Date: 07/28/23 Patient seen in ICU at today's visit, remains ventilated and on pressors. Sedation was weaned this morning. Pt has hoswed no improvement in condition. Kidney function worsening. After pt was noted to have jerking/tremors on the right side, CT head was obtained showing acute infarcts along the left parietal and left occipital lobes. Liver biopsy has been obtained, prelim report showing lung vs upper GI primary, favoring lung, final report still pending. WBC 19.0, hemoglobin 7.2, plts 119,000. Objective - Vital Signs Vital signs: Vital Signs Temp 97.8 F 07/28/23 12:00 Pulse 64 07/28/23 15:00 Resp 15 07/28/23 15:00 BP 137/65 07/28/23 15:00 Pulse Ox 100 07/28/23 15:00 FiO2 40 07/28/23 15:35 Intake & Output 07/27/23 07/28/23 07/28/23 18:59 06:59 18:59 Intake Total 0578.826 0524 449.251 Output Total 420 415 270 Balance 2154.543 8607 179.251 Weight 93.4 kg Intake: IV 879.3 1114 344.0 0.9 835 975 270 Cefepime 1 gm In Sodium 50.0 Chloride 0.9% 50 ml @ 12. 5 mls/hr IVPB Q12HR [facility] Rx#:[id number] Cefepime 2 gm In Sodium 100 Chloride 0.9% 100 ml @ 25 mls/hr IVPB Q12HR [facility] Rx #:[id number] Dextrose/Water 1 250ml. 8.3 bag @ 2.5 MCG/KG/MIN 4. 167 mls/hr IV .Q24H [facility] with DOPamine DRIP 800 mg Rx#:[id number] pressure bag 36 39 24 Intake, IV Titration 91.278 0 23.251 Amount propofoL 1,000 mg In 91.278 0 23.251 Empty Bag 1 bag @ 15 MCG/ KG/MIN 7.267 mls/hr IV . [id number] [facility] Rx#:[id number] Tube Feeding 444 481 82 Other 120 90 Output: Urine 420 415 270 Other: Voiding Method Indwelling Catheter Indwelling Catheter Indwelling Catheter ABP, PAP, CO, CI - Last Documented Arterial Blood Pressure 143/51 - Constitutional General appearance: Present: no acute distress - Respiratory Details: ventilated breath sounds - Cardiovascular Rhythm: regular - Labs CBC & Chem 7: 07/28/23 05:00 07/28/23 05:00 Labs: Abnormal Lab Results - Last 24 Hours (Table) 07/27/23 07/27/23 07/28/23 Range/Units 19:38 23:22 03:03 WBC (3.8-10.6) k/uL RBC (4.30-5.90) m/uL Hgb (13.0-17.5) gm/dL Hct (39.0-53.0) % RDW (11.5-15.5) % Plt Count (150-450) k/uL ABG Total CO2 (19-24) mmol/L ABG O2 Saturation (94-97) % Sodium (137-145) mmol/L Chloride (98-107) mmol/L Carbon Dioxide (22-30) mmol/L BUN (9-20) mg/dL Creatinine (0.66-1.25) mg/dL Glucose (74-99) mg/dL POC Glucose (mg/dL) 152 H 159 H 163 H (70-110) mg/dL Calcium (8.4-10.2) mg/dL Phosphorus (2.5-4.5) mg/dL 07/28/23 07/28/23 07/28/23 Range/Units 05:00 05:00 05:00 WBC 19.0 H (3.8-10.6) k/uL RBC 2.41 L (4.30-5.90) m/uL Hgb 7.2 L (13.0-17.5) gm/dL Hct 22.1 L (39.0-53.0) % RDW 15.9 H (11.5-15.5) % Plt Count 119 L (150-450) k/uL ABG Total CO2 (19-24) mmol/L ABG O2 Saturation (94-97) % Sodium 130 L (137-145) mmol/L Chloride 97 L (98-107) mmol/L Carbon Dioxide 20 L (22-30) mmol/L BUN 88 H (9-20) mg/dL Creatinine 3.18 H (0.66-1.25) mg/dL Glucose 143 H (74-99) mg/dL POC Glucose (mg/dL) (70-110) mg/dL Calcium 7.5 L (8.4-10.2) mg/dL Phosphorus 8.2 H (2.5-4.5) mg/dL 07/28/23 07/28/23 07/28/23 Range/Units 05:54 07:58 11:44 WBC (3.8-10.6) k/uL RBC (4.30-5.90) m/uL Hgb (13.0-17.5) gm/dL Hct (39.0-53.0) % RDW (11.5-15.5) % Plt Count (150-450) k/uL ABG Total CO2 25 H (19-24) mmol/L ABG O2 Saturation 97.7 H (94-97) % Sodium (137-145) mmol/L Chloride (98-107) mmol/L Carbon Dioxide (22-30) mmol/L BUN (9-20) mg/dL Creatinine (0.66-1.25) mg/dL Glucose (74-99) mg/dL POC Glucose (mg/dL) 180 H 189 H (70-110) mg/dL Calcium (8.4-10.2) mg/dL Phosphorus (2.5-4.5) mg/dL 07/28/23 Range/Units 16:17 WBC (3.8-10.6) k/uL RBC (4.30-5.90) m/uL Hgb (13.0-17.5) gm/dL Hct (39.0-53.0) % RDW (11.5-15.5) % Plt Count (150-450) k/uL ABG Total CO2 (19-24) mmol/L ABG O2 Saturation (94-97) % Sodium (137-145) mmol/L Chloride (98-107) mmol/L Carbon Dioxide (22-30) mmol/L BUN (9-20) mg/dL Creatinine (0.66-1.25) mg/dL Glucose (74-99) mg/dL POC Glucose (mg/dL) 176 H (70-110) mg/dL Calcium (8.4-10.2) mg/dL Phosphorus (2.5-4.5) mg/dL Microbiology - Last 24 Hours (Table) 07/22/23 10:45 Blood Culture - Final Blood 07/22/23 08:15 Blood Culture - Final Blood Assessment and Plan (1) Liver lesion Current Visit: Yes Status: Acute Priority: High Code(s): K76.9 - LIVER DISEASE, UNSPECIFIED SNOMED Code(s): 451961699 (2) Lung nodule, multiple Current Visit: Yes Status: Acute Priority: High Code(s): R91.8 - OTHER NONSPECIFIC ABNORMAL FINDING OF LUNG FIELD SNOMED Code(s): 337870081 Plan: PEA arrest, CVA -Developed bradycardia while being transition from BiPAP -Underwent 2 rounds of CPR with epinephrine given and ROSC achieved -Remains intubated and on pressors, with no improvement noted in condition -Course has been complicated by acute infarcts noted in left parietal and left occipital lobes -Management per primary, neurology, and ICU teams Lung and liver lesions -Se[facility] imaging [facility] Plans were for follow- up PET CT scan and referral for biopsy -Bilirubin currently normal, LFTs elevated. Abd US Reporting the liver is heterogenous questioning mets versus transplant surgical changes. Postoperative dilation of the common bile duct was reported as well -CT abdomen and pelvis without contrast on 07/24/2023 revealed proximal small bowel loops are prominent. Mid and distal small bowel loops are decompressed. Mild partial small bowel obstruction or ileus is possible. Extensive metastasis to the liver. Ascites within the pelvis. Loculated density within the right dependent lung base -CEA > 4500, CA 19-9 > 10,000 -Consult placed for Interventional Radiology to review the case and see if liver biopsy is possible. Did note that the patient is a liver transplant -Liver biopsy was obtained on 07/26/23. Dr. Jimenez spoke with pathologist today. Prelim path report showing lung vs upper GI primary, favoring lung, final report still pending -Liver doctor at the [facility] in [place] Dr. Lemus phone [phone] *At today's visit, had a family meeting with spouse and daughters. Preliminary pathology report was discussed and that this would be considered extensive stage cancer, due to metastasis. As well as patients poor prognosis and his declining condition, with no improvement despite aggressive measures. DNR code status and comfort measures were also discussed. Spouse seems to be agreeable but would like to further discuss with the rest of their family and her lutheran before making a decision. Primary RN updated Doctor attests: I performed a history and physical examination of this patient, developed impression and plan of care. Discussed with dictator. I agree with dictators note, documented as a scribe.
[2023-07-28 20:41] LABS: Glucose,Whole Blood 193 mg/dL (70-110)
[2023-07-28 23:45] LABS: Glucose,Whole Blood 214 mg/dL (70-110)
--- NOTE | 2023-07-28 23:49 | EEG ---
ELECTROENCEPHALOGRAM REPORT DATE OF SERVICE: 07/28/2023. PREAMBLE: This is a 72-year-old male with recent cardiac arrest and seizure-like activity. This is a followup EEG. EEG FINDINGS: This is a 21 channel and prolonged, digital EEG recorded with video component, utilizing 10/20 international system with referential and bipolar montages. The recording start time is at 7:10 a.m., and recording end time is 8:15 a.m. on 07/28/2023. EEG FINDINGS: The recording starts and continues with presence of generalized, moderate to high amplitude sharp appearing waves seen diffusely at 1 hertz, which is somewhat relatively more prominent in the right parietal region. This was rhythmic, but continuously present. Otherwise, the background consists of diffuse delta slowing. The photic driving response was not seen. After the patient received 2 mg of Ativan IV, about several minutes later, this epileptiform activity resolved, and was replaced with generalized delta slowing with some periods of suppression. Clinically, no twitching or motor activity was noted. IMPRESSION: This is a severely abnormal EEG due to presence of generalized, 1 hertz sharp appearing waves seen in bihemispheric region, which is slightly more focal towards the right parietal region. 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 After the patient received Ativan 2 mg IV, several minutes later, these epileptiform activity was replaced by diffuse slowing in 2 to 3 hertz delta, with some periods of suppression. Clinical correlation and followup EEG recommended as clinically indicated. JUNIE / MADIHA: [id number] /
[2023-07-29 04:05] LABS: Glucose,Whole Blood 201 mg/dL (70-110)
[2023-07-29 04:57] LABS: Anisocytosis Slight; Basophils % (A) 0 %; Eosinophils % (A) 0 %; HCT 21.9 % (39.0-53.0); Hypochromasia Slight; Lymphocytes # (A) 0.5 k/uL (1.0-4.8); Lymphocytes % (A) 3 %; MCH 29.1 pg (25.0-35.0); MCHC 31.4 g/dL (31.0-37.0); MCV 92.7 fL (80.0-100.0); Mean Platelet Volume 8.9; Monocytes # (A) 0.5 k/uL (0-1.0); Monocytes % (A) 4 %; Neutrophils % (A) 92 %; Platelet Count 127 k/uL (150-450); RBC 2.37 m/uL (4.30-5.90); RDW 16.3 % (11.5-15.5); WBC 15.2 k/uL (3.8-10.6)
[2023-07-29 05:13] LABS: HGB 6.9 gm/dL (13.0-17.5)
[2023-07-29 05:23] LABS: African American GFR (CKD) 17 (>60 ml/min/1.73 sqM); Anion Gap 14 mmol/L; Calcium 7.6 mg/dL (8.4-10.2); Carbon Dioxide 19 mmol/L (22-30); Chloride 97 mmol/L (98-107); Glucose 170 mg/dL (74-99); Magnesium 2.3 mg/dL (1.6-2.3); Non-African American GFR(CKD) 14 (>60 ml/min/1.73 sqM); Potassium 4.6 mmol/L (3.5-5.1); Sodium 130 mmol/L (137-145)
[2023-07-29 05:44] LABS: Blood Urea Nitrogen 106 mg/dL (9-20)
[2023-07-29 06:34] LABS: ABG HCO3 22 mmol/L (21-25); ABG Oxygen Saturation 98.8 % (94-97); ABG PCO2 34 mmHg (35-45); ABG PH 7.41 (7.35-7.45); ABG PO2 124 mmHg (83-108); ABG TCO2 23 mmol/L (19-24); Allen Test Performed? Yes
[2023-07-29] MEDS: INSULIN DETEMIR (LEVEMIR) 100 UNIT/ML SYR SQ SCH (06:35)
--- NOTE | 2023-07-29 06:51 | XR ---
EXAMINATION TYPE: XR chest 1V portable DATE OF EXAM: 07/29/2023 COMPARISON: 07/28/2023 HISTORY: Pleural effusion TECHNIQUE: Single frontal view of the chest is obtained. FINDINGS: ET tube is 3.9 cm above the divine. The tube within the stomach. There is a Mediport catheter on the left unchanged in position. There is a left jugular central venou s catheter unchanged in position. There is suboptimal inspiration. There is hazy opacification in the right lung base likely indicating small pleural effusion essentially unchanged compared to previous. The heart size is normal. The oss eous structures are intact. IMPRESSION: 1. ET tube 3.9 cm above the divine. 2. small right pleural effusion essentially unchanged. IMPRESSION: No acute process.
--- NOTE | 2023-07-29 07:37 | P.PN ---
Subjective Progress Note Date: 07/28/23 Principal diagnosis: Reason for follow-up is possible pneumonia Patient is a 72-year-old male with a past medical history negative for hypertension hyperlipidemia reflux, end-stage renal disease s/p renal and liver transplant in 2016 recent vascular bypassed presented to hospital due to abdominal and worsening back pain did have a cardiac arrest for the patient has been intubated and admitted to the ICU. On today's visit that is 07/28/2023, patient has been afebrile, patient remains to be intubated on the vent FiO2 is stable at 40% no significant purulent secretions through the ED diarrhea or any other changes reported by the nursing staff. Patient white count is over 19,000, creatinine is 3.18 sputum culture has been negative chest x-ray low lung volumes generalized hazy appearance atelectasis versus edema Objective - Vital Signs Vital signs: Vital Signs Temp 98.4 F 07/28/23 08:00 Pulse 70 07/28/23 12:01 Resp 26 H 07/28/23 11:00 BP 127/60 07/28/23 11:00 Pulse Ox 99 07/28/23 11:00 FiO2 40 07/28/23 11:33 Intake & Output 07/27/23 07/28/23 07/28/23 18:59 06:59 18:59 Intake Total 2014.612 3644 204.251 Output Total 420 415 45 Balance 0128.163 1365 159.251 Intake: IV 879.3 1114 181.0 0.9 835 975 150 Cefepime 1 gm In Sodium 25.0 Chloride 0.9% 50 ml @ 12. 5 mls/hr IVPB Q12HR [facility] Rx#:[id number] Cefepime 2 gm In Sodium 100 Chloride 0.9% 100 ml @ 25 mls/hr IVPB Q12HR [facility] Rx #:[id number] Dextrose/Water 1 250ml. 8.3 bag @ 2.5 MCG/KG/MIN 4. 167 mls/hr IV .Q24H [facility] with DOPamine DRIP 800 mg Rx#:[id number] pressure bag 36 39 6 Intake, IV Titration 91.278 0 23.251 Amount propofoL 1,000 mg In 91.278 0 23.251 Empty Bag 1 bag @ 15 MCG/ KG/MIN 7.267 mls/hr IV . [id number] [facility] Rx#:[id number] Tube Feeding 444 481 Other 120 90 Output: Urine 420 415 45 Other: Voiding Method Indwelling Catheter Indwelling Catheter Indwelling Catheter ABP, PAP, CO, CI - Last Documented Arterial Blood Pressure 121/47 - Exam GENERAL DESCRIPTION: An elderly male intubated on the vent RESPIRATORY SYSTEM: Unlabored breathing , decreased breath sounds at bases HEART: S1 S2 regular rate and rhythm , ABDOMEN: Soft , no tenderness EXTREMITIES: No edema feet - Labs CBC & Chem 7: 07/29/23 04:45 07/29/23 04:45 Labs: Abnormal Lab Results - Last 24 Hours (Table) 07/27/23 07/27/23 07/27/23 Range/Units 15:59 19:38 23:22 WBC (3.8-10.6) k/uL RBC (4.30-5.90) m/uL Hgb (13.0-17.5) gm/dL Hct (39.0-53.0) % RDW (11.5-15.5) % Plt Count (150-450) k/uL ABG Total CO2 (19-24) mmol/L ABG O2 Saturation (94-97) % Sodium (137-145) mmol/L Chloride (98-107) mmol/L Carbon Dioxide (22-30) mmol/L BUN (9-20) mg/dL Creatinine (0.66-1.25) mg/dL Glucose (74-99) mg/dL POC Glucose (mg/dL) 201 H 152 H 159 H (70-110) mg/dL Calcium (8.4-10.2) mg/dL Phosphorus (2.5-4.5) mg/dL 07/28/23 07/28/23 07/28/23 Range/Units 03:03 05:00 05:00 WBC 19.0 H (3.8-10.6) k/uL RBC 2.41 L (4.30-5.90) m/uL Hgb 7.2 L (13.0-17.5) gm/dL Hct 22.1 L (39.0-53.0) % RDW 15.9 H (11.5-15.5) % Plt Count 119 L (150-450) k/uL ABG Total CO2 (19-24) mmol/L ABG O2 Saturation (94-97) % Sodium 130 L (137-145) mmol/L Chloride 97 L (98-107) mmol/L Carbon Dioxide 20 L (22-30) mmol/L BUN 88 H (9-20) mg/dL Creatinine 3.18 H (0.66-1.25) mg/dL Glucose 143 H (74-99) mg/dL POC Glucose (mg/dL) 163 H (70-110) mg/dL Calcium 7.5 L (8.4-10.2) mg/dL Phosphorus (2.5-4.5) mg/dL 07/28/23 07/28/23 07/28/23 Range/Units 05:00 05:54 07:58 WBC (3.8-10.6) k/uL RBC (4.30-5.90) m/uL Hgb (13.0-17.5) gm/dL Hct (39.0-53.0) % RDW (11.5-15.5) % Plt Count (150-450) k/uL ABG Total CO2 25 H (19-24) mmol/L ABG O2 Saturation 97.7 H (94-97) % Sodium (137-145) mmol/L Chloride (98-107) mmol/L Carbon Dioxide (22-30) mmol/L BUN (9-20) mg/dL Creatinine (0.66-1.25) mg/dL Glucose (74-99) mg/dL POC Glucose (mg/dL) 180 H (70-110) mg/dL Calcium (8.4-10.2) mg/dL Phosphorus 8.2 H (2.5-4.5) mg/dL 07/28/23 Range/Units 11:44 WBC (3.8-10.6) k/uL RBC (4.30-5.90) m/uL Hgb (13.0-17.5) gm/dL Hct (39.0-53.0) % RDW (11.5-15.5) % Plt Count (150-450) k/uL ABG Total CO2 (19-24) mmol/L ABG O2 Saturation (94-97) % Sodium (137-145) mmol/L Chloride (98-107) mmol/L Carbon Dioxide (22-30) mmol/L BUN (9-20) mg/dL Creatinine (0.66-1.25) mg/dL Glucose (74-99) mg/dL POC Glucose (mg/dL) 189 H (70-110) mg/dL Calcium (8.4-10.2) mg/dL Phosphorus (2.5-4.5) mg/dL Microbiology - Last 24 Hours (Table) 07/22/23 10:45 Blood Culture - Final Blood 07/22/23 08:15 Blood Culture - Final Blood Assessment and Plan (1) Pneumonia Current Visit: Yes Status: Acute Code(s): J18.9 - PNEUMONIA, UNSPECIFIED ORGANISM SNOMED Code(s): 119124058 (2) Leukocytosis Current Visit: Yes Status: Acute Code(s): D72.829 - ELEVATED WHITE BLOOD CELL COUNT, UNSPECIFIED SNOMED Code(s): 237461528 (3) Penicillin allergy Current Visit: Yes Status: Acute Code(s): Z88.0 - ALLERGY STATUS TO PENICILLIN SNOMED Code(s): 09019362 Plan: 1patient with acute respiratory failure which is likely multifactorial in this patient who did have a cardiac arrest this morning patient did have elevated procalcitonin and a possible component of pneumonia not entirely excluded possible gram-negative 2-blood and sputum culture are so far negative 3-patient is afebrile, white count is 19,000 and we will monitor closely for now continue with the cefepime Daughter at the bedside questions also Dictation was produced using [employer] dictation software. please excuse any grammatical, word or spelling errors.
[2023-07-29 08:13] LABS: Glucose,Whole Blood 223 mg/dL (70-110)
--- NOTE | 2023-07-29 08:29 | P.PN ---
Subjective Progress Note Date: 07/29/23 PROGRESS NOTE The patient is a 72-year-old male, status post renal and liver transplant in [place] who presented to the hospital with symptoms of progressive dyspnea, back discomfort, on 21 July he had an episode of bradycardia with pulseless electrical activity requiring mechanical ventilation and CPR. His CAT scan showed bilateral pulmonary nodule and liver nodule raising the possibility of infection versus metastatic disease. Cardiology consultation was requested because of an episode of complete heart block last night. His echocardiogram showed a preserved systolic function with no significant valvular abnormality. According to the records he has a history of hypertension, hyperlipidemia. No history of ischemic heart disease is available in the records. He was initiated on IV dopamine and has episodes of second-degree AV block but no third-degree AV block since. His repeat CT scan done yesterday showed evidence to suggest extensive metastasis to the liver with ascites within the pelvis. On presentation his troponin was normal. July 1: The patient remains intubated and sedated. He remains on IV dopamine and his predominantly in second-degree AV block with no significant pauses. He underwent an echo that showed a preserved systolic function with no significant valvular abnormalities. His troponin were mildly elevated at 1.3. His lab data at this morning revealed potassium of 6.1. He has worsening of his leukocytosis. July 2: The patient remains intubated and sedated. He is in sinus mechanism with first- degree AV block and no evidence of second or third-degree AV block. He underwent a CT scan of the head that showed evidence of left parietal and occipital lobes acute infarct. No evidence to suggest intracranial hemorrhage. He underwent a liver biopsy yesterday. The results are pending. July 27: The patient remains intubated and sedated. He was off sedation earlier without significant response. He has no further surgery or second-degree AV block. His CT interval has decreased. He underwent liver biopsy and the results are pending. He is undergoing an EEG today. His blood pressure is stable. July 28: The patient remains intubated and sedated, in sinus mechanism with resolution of his first-degree block and no evidence of high-grade AV block. His preliminary liver biopsy results is consistent with metastatic cancer probably lung. He had evidence of elevated CEA and CA 199 level. CODE STATUS was discussed with the family by oncology and critical care service. The prognosis is very poor. Medications: Aspirin 81 mg daily, Lovenox subcu, insulin, Protonix, propofol, sodium bicarb, fentanyl patch, IV dopamine at 2.5 mcg/kg/min, hydrocortisone PHYSICAL EXAMINATION: Blood pressure 139/50 heart rate 73, intubated and sedated LUNGS: Clear to auscultation HEART: Regular rate and rhythm, S1, S2. No S3. Systolic ejection murmur ABDOMEN: Soft, no organomegaly EXTREMETIES: +1 edema LAB: Potassium 4.6, BUN 106, creatinine 3.89, sodium 130. WBC 15.2 , Hemoglobin 6.9 IMPRESSION: 1. Cardiopulmonary arrest etiology unclear, workup in progress 2. Episodes of third and second-degree AV block with no significant pauses on IV dopamine, resolved, first-degree block resolved 3. Status post renal and liver transplant, liver biopsy consistent with malignancy 4. liver metastasis, primary unknown, probable lung 5. Prior history of hypertension 6. Hyperkalemia, improved 7. Troponin elevation representing type II myocardial injury 8. Evidence of acute cerebrovascular accident 9. Worsening renal functions PLAN: 1. Continue supportive care 2. Prognosis is very poor, awaiting decision from family regarding CODE STATUS 3. We will see him on as-needed basis, please feel free to call us for any question Objective - Vital Signs Vital signs: Vital Signs Temp 98.5 F 07/29/23 04:00 Pulse 73 07/29/23 07:00 Resp 20 07/29/23 07:00 BP 123/60 07/29/23 00:00 Pulse Ox 99 07/29/23 07:00 FiO2 40 07/29/23 04:00 Intake & Output 07/28/23 07/29/23 07/29/23 18:59 06:59 18:59 Intake Total 671.251 922 Output Total 380 435 Balance 291.251 487 Weight 93.4 kg 98.4 kg Intake: IV 413.0 299 0.9 330 260 Cefepime 1 gm In Sodium 50.0 Chloride 0.9% 50 ml @ 12. 5 mls/hr IVPB Q12HR [facility] Rx#:[id number] pressure bag 33 39 Intake, IV Titration 23.251 Amount propofoL 1,000 mg In 23.251 Empty Bag 1 bag @ 15 MCG/ KG/MIN 7.267 mls/hr IV . [id number] [facility] Rx#:[id number] Tube Feeding 205 533 Other 30 90 Output: Urine 380 435 Other: Voiding Method Indwelling Catheter Indwelling Catheter ABP, PAP, CO, CI - Last Documented Arterial Blood Pressure 139/55 - Labs CBC & Chem 7: 07/29/23 04:45 07/29/23 04:45 Labs: Abnormal Lab Results - Last 24 Hours (Table) 07/28/23 07/28/23 07/28/23 Range/Units 11:44 16:17 20:39 WBC (3.8-10.6) k/uL RBC (4.30-5.90) m/uL Hgb (13.0-17.5) gm/dL Hct (39.0-53.0) % RDW (11.5-15.5) % Plt Count (150-450) k/uL Neutrophils # (1.3-7.7) k/uL Lymphocytes # (1.0-4.8) k/uL ABG pCO2 (35-45) mmHg ABG pO2 (83-108) mmHg ABG O2 Saturation (94-97) % Sodium (137-145) mmol/L Chloride (98-107) mmol/L Carbon Dioxide (22-30) mmol/L BUN (9-20) mg/dL Creatinine (0.66-1.25) mg/dL Glucose (74-99) mg/dL POC Glucose (mg/dL) 189 H 176 H 193 H (70-110) mg/dL Calcium (8.4-10.2) mg/dL 07/28/23 07/29/23 07/29/23 Range/Units 23:44 04:04 04:45 WBC 15.2 H (3.8-10.6) k/uL RBC 2.37 L (4.30-5.90) m/uL Hgb 6.9 L* (13.0-17.5) gm/dL Hct 21.9 L (39.0-53.0) % RDW 16.3 H (11.5-15.5) % Plt Count 127 L (150-450) k/uL Neutrophils # 14.0 H (1.3-7.7) k/uL Lymphocytes # 0.5 L (1.0-4.8) k/uL ABG pCO2 (35-45) mmHg ABG pO2 (83-108) mmHg ABG O2 Saturation (94-97) % Sodium (137-145) mmol/L Chloride (98-107) mmol/L Carbon Dioxide (22-30) mmol/L BUN (9-20) mg/dL Creatinine (0.66-1.25) mg/dL Glucose (74-99) mg/dL POC Glucose (mg/dL) 214 H 201 H (70-110) mg/dL Calcium (8.4-10.2) mg/dL 07/29/23 07/29/23 07/29/23 Range/Units 04:45 06:27 08:11 WBC (3.8-10.6) k/uL RBC (4.30-5.90) m/uL Hgb (13.0-17.5) gm/dL Hct (39.0-53.0) % RDW (11.5-15.5) % Plt Count (150-450) k/uL Neutrophils # (1.3-7.7) k/uL Lymphocytes # (1.0-4.8) k/uL ABG pCO2 34 L (35-45) mmHg ABG pO2 124 H (83-108) mmHg ABG O2 Saturation 98.8 H (94-97) % Sodium 130 L (137-145) mmol/L Chloride 97 L (98-107) mmol/L Carbon Dioxide 19 L (22-30) mmol/L BUN 106 H* (9-20) mg/dL Creatinine 3.89 H (0.66-1.25) mg/dL Glucose 170 H (74-99) mg/dL POC Glucose (mg/dL) 223 H (70-110) mg/dL Calcium 7.6 L (8.4-10.2) mg/dL
--- NOTE | 2023-07-29 09:51 | P.PN ---
Subjective Progress Note Date: 07/28/23 Patient was seen for follow-up. Patient's and multiple other family members were present. Patient is off propofol since before EEG was started. Patient continues to be comatose. Objective - Vital Signs Vital signs: Vital Signs Temp 98.6 F 07/28/23 16:00 Pulse 66 07/28/23 17:00 Resp 20 07/28/23 17:00 BP 140/81 07/28/23 17:00 Pulse Ox 99 07/28/23 17:00 FiO2 40 07/28/23 16:00 Intake & Output 07/27/23 07/28/23 07/28/23 18:59 06:59 18:59 Intake Total 9838.798 9713 607.251 Output Total 420 415 355 Balance 3857.212 1699 252.251 Weight 93.4 kg Intake: IV 879.3 1114 390.0 0.9 835 975 310 Cefepime 1 gm In Sodium 50.0 Chloride 0.9% 50 ml @ 12. 5 mls/hr IVPB Q12HR [facility] Rx#:[id number] Cefepime 2 gm In Sodium 100 Chloride 0.9% 100 ml @ 25 mls/hr IVPB Q12HR [facility] Rx #:[id number] Dextrose/Water 1 250ml. 8.3 bag @ 2.5 MCG/KG/MIN 4. 167 mls/hr IV .Q24H [facility] with DOPamine DRIP 800 mg Rx#:[id number] pressure bag 36 39 30 Intake, IV Titration 91.278 0 23.251 Amount propofoL 1,000 mg In 91.278 0 23.251 Empty Bag 1 bag @ 15 MCG/ KG/MIN 7.267 mls/hr IV . [id number] [facility] Rx#:[id number] Tube Feeding 444 481 164 Other 120 90 30 Output: Urine 420 415 355 Other: Voiding Method Indwelling Catheter Indwelling Catheter Indwelling Catheter ABP, PAP, CO, CI - Last Documented Arterial Blood Pressure 122/45 - Exam Patient's pupils are equal, round and reacting, oculocephalics mildly present. Corneals very minimally present. Patient is breathing over the ventilator. Patient does not respond to calling his name, or with painful stimuli. No obvious facial twitching noted. - Labs CBC & Chem 7: 07/29/23 04:45 07/29/23 04:45 Labs: Abnormal Lab Results - Last 24 Hours (Table) 07/27/23 07/27/23 07/28/23 Range/Units 19:38 23:22 03:03 WBC (3.8-10.6) k/uL RBC (4.30-5.90) m/uL Hgb (13.0-17.5) gm/dL Hct (39.0-53.0) % RDW (11.5-15.5) % Plt Count (150-450) k/uL ABG Total CO2 (19-24) mmol/L ABG O2 Saturation (94-97) % Sodium (137-145) mmol/L Chloride (98-107) mmol/L Carbon Dioxide (22-30) mmol/L BUN (9-20) mg/dL Creatinine (0.66-1.25) mg/dL Glucose (74-99) mg/dL POC Glucose (mg/dL) 152 H 159 H 163 H (70-110) mg/dL Calcium (8.4-10.2) mg/dL Phosphorus (2.5-4.5) mg/dL 07/28/23 07/28/23 07/28/23 Range/Units 05:00 05:00 05:00 WBC 19.0 H (3.8-10.6) k/uL RBC 2.41 L (4.30-5.90) m/uL Hgb 7.2 L (13.0-17.5) gm/dL Hct 22.1 L (39.0-53.0) % RDW 15.9 H (11.5-15.5) % Plt Count 119 L (150-450) k/uL ABG Total CO2 (19-24) mmol/L ABG O2 Saturation (94-97) % Sodium 130 L (137-145) mmol/L Chloride 97 L (98-107) mmol/L Carbon Dioxide 20 L (22-30) mmol/L BUN 88 H (9-20) mg/dL Creatinine 3.18 H (0.66-1.25) mg/dL Glucose 143 H (74-99) mg/dL POC Glucose (mg/dL) (70-110) mg/dL Calcium 7.5 L (8.4-10.2) mg/dL Phosphorus 8.2 H (2.5-4.5) mg/dL 07/28/23 07/28/23 07/28/23 Range/Units 05:54 07:58 11:44 WBC (3.8-10.6) k/uL RBC (4.30-5.90) m/uL Hgb (13.0-17.5) gm/dL Hct (39.0-53.0) % RDW (11.5-15.5) % Plt Count (150-450) k/uL ABG Total CO2 25 H (19-24) mmol/L ABG O2 Saturation 97.7 H (94-97) % Sodium (137-145) mmol/L Chloride (98-107) mmol/L Carbon Dioxide (22-30) mmol/L BUN (9-20) mg/dL Creatinine (0.66-1.25) mg/dL Glucose (74-99) mg/dL POC Glucose (mg/dL) 180 H 189 H (70-110) mg/dL Calcium (8.4-10.2) mg/dL Phosphorus (2.5-4.5) mg/dL 07/28/23 Range/Units 16:17 WBC (3.8-10.6) k/uL RBC (4.30-5.90) m/uL Hgb (13.0-17.5) gm/dL Hct (39.0-53.0) % RDW (11.5-15.5) % Plt Count (150-450) k/uL ABG Total CO2 (19-24) mmol/L ABG O2 Saturation (94-97) % Sodium (137-145) mmol/L Chloride (98-107) mmol/L Carbon Dioxide (22-30) mmol/L BUN (9-20) mg/dL Creatinine (0.66-1.25) mg/dL Glucose (74-99) mg/dL POC Glucose (mg/dL) 176 H (70-110) mg/dL Calcium (8.4-10.2) mg/dL Phosphorus (2.5-4.5) mg/dL Microbiology - Last 24 Hours (Table) 07/22/23 10:45 Blood Culture - Final Blood 07/22/23 08:15 Blood Culture - Final Blood Assessment and Plan Assessment: * Status postcardiac arrest 07/22/2023 with downtime of about 7 minutes. Patient also had hypoglycemia at that time with blood sugar 25. 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 * Focal seizures noted clinically. 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 * Acute ischemic stroke, large size involving watershed territory between the left MCA/NICO. There is also evidence of a small area of acute infarction in the right anterior frontal lobe between the right NICO/MCA territory. * Possible metastatic cancer. Unknown primary yet. Status post liver biopsy. * Hyponatremia * Hyperkalemia * Chronic renal failure * Elevated liver enzymes * Anemia * Elevated troponin. * History of kidney and liver transplant in 2016 * History of polysubstance abuse, hepatitis C, treated. * Hypertension * Hyperlipidemia Plan: * Repeat EEG performed today was severely abnormal due to presence of generalized, 1 Hz sharp appearing waves seen in bihemispheric region, which is slightly more focal towards the right parietal region. 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 After patient received 2 mg Ativan IV, several minutes later, these epileptiform activity was replaced by diffuse slowing in 2 to 3 Hz delta with some.'s of suppression. Clinical correlation and follow-up is recommended as clinically indicated. * Patient already on Keppra 500 mg twice daily. Patient now started on Vimpat 100 mg twice daily as well. * Initial EEG performed 07/26/2023 was severely abnormal due to presence of pe riods of generalized suppression, intermixed with some low amplitude 2 to 3 Hz delta slowing suggestive of generalized cerebral dysfunction as can be seen with anoxic, or severe toxic metabolic encephalopathy or related to diffuse structural brain abnormality. Clinical correlation is recommended. No epileptiform activity was seen. No electrographic seizure was recorded. * CT scan of the head revealed a very large watershed ischemic stroke between left NICO and left MCA territory involving the frontal, parietal and occipital lobes. No mass effect or midline shift. No hemorrhage. * Patient is [id number], therefore the major portion of stroke is involving the dominant hemisphere. This may have significant implications with right hemiparesis and probable significant speech, and memory deficits. * Based upon this large bilateral stroke (L>>R), recent cardiac arrest, nonconvulsive status epilepticus, and possible suspected metastatic cancer, the prognosis remains very poor for meaningful recovery. * Patient is day 6 postcardiac arrest, and is still comatose with GCS of 3. * Discussed with patient's regarding the result of CT head, which also shows an additional small area of ischemic infarction involving the right frontal region between NICO/MCA territory. Overall this watershed territory infarct could be related to hypoperfusion during cardiac arrest. * Discussed with patient's and nursing staff in detail. * Patient had undergone ultrasound-guided liver biopsy today. Being worked up for possible metastatic cancer. Path report pending. * Other medical management as per IM and other specialties involved. * Carotid Doppler revealed mild to moderate intimal thickening and plaque in the right carotid bifurcation resulting in the moderate 50 to 69% stenosis based on peak systolic velocity. No significant interval change compared to previous. Right vertebral artery not seen. Unable to scan the left side because of central line in left IJ vein. * Start aspirin 325 mg daily, but patient is allergic to nonsteroidals. * Discussed with family members.
--- NOTE | 2023-07-29 09:56 | P.PN ---
Subjective Patient is seen in follow-up for acute kidney injury on chronic kidney disease. Renal function worse. Urine output 30 cc an hour. Receiving tube feeds. Received IV Lasix yesterday. Hemoglobin 6.9 today. Intubated. Vital signs are stable. General: Resting in bed. HEENT: Intubated. LUNGS: Scattered rhonchi. HEART: Rate and Rhythm are regular. ABDOMEN: Obese. EXTREMITITES: 1+ edema. Objective - Vital Signs Vital signs: Vital Signs Temp 98.5 F 07/29/23 04:00 Pulse 81 07/29/23 09:10 Resp 28 H 07/29/23 09:01 BP 123/60 07/29/23 00:00 Pulse Ox 99 07/29/23 07:00 FiO2 40 07/29/23 09:01 Intake & Output 07/28/23 07/29/23 07/29/23 18:59 06:59 18:59 Intake Total 671.251 922 Output Total 380 435 Balance 291.251 487 Weight 93.4 kg 98.4 kg Intake: IV 413.0 299 0.9 330 260 Cefepime 1 gm In Sodium 50.0 Chloride 0.9% 50 ml @ 12. 5 mls/hr IVPB Q12HR [facility] Rx#:[id number] pressure bag 33 39 Intake, IV Titration 23.251 Amount propofoL 1,000 mg In 23.251 Empty Bag 1 bag @ 15 MCG/ KG/MIN 7.267 mls/hr IV . [id number] [facility] Rx#:[id number] Tube Feeding 205 533 Other 30 90 Output: Urine 380 435 Other: Voiding Method Indwelling Catheter Indwelling Catheter ABP, PAP, CO, CI - Last Documented Arterial Blood Pressure 139/55 - Labs CBC & Chem 7: 07/29/23 04:45 07/29/23 04:45 Labs: Abnormal Lab Results - Last 24 Hours (Table) 07/28/23 07/28/23 07/28/23 Range/Units 11:44 16:17 20:39 WBC (3.8-10.6) k/uL RBC (4.30-5.90) m/uL Hgb (13.0-17.5) gm/dL Hct (39.0-53.0) % RDW (11.5-15.5) % Plt Count (150-450) k/uL Neutrophils # (1.3-7.7) k/uL Lymphocytes # (1.0-4.8) k/uL ABG pCO2 (35-45) mmHg ABG pO2 (83-108) mmHg ABG O2 Saturation (94-97) % Sodium (137-145) mmol/L Chloride (98-107) mmol/L Carbon Dioxide (22-30) mmol/L BUN (9-20) mg/dL Creatinine (0.66-1.25) mg/dL Glucose (74-99) mg/dL POC Glucose (mg/dL) 189 H 176 H 193 H (70-110) mg/dL Calcium (8.4-10.2) mg/dL 07/28/23 07/29/23 07/29/23 Range/Units 23:44 04:04 04:45 WBC 15.2 H (3.8-10.6) k/uL RBC 2.37 L (4.30-5.90) m/uL Hgb 6.9 L* (13.0-17.5) gm/dL Hct 21.9 L (39.0-53.0) % RDW 16.3 H (11.5-15.5) % Plt Count 127 L (150-450) k/uL Neutrophils # 14.0 H (1.3-7.7) k/uL Lymphocytes # 0.5 L (1.0-4.8) k/uL ABG pCO2 (35-45) mmHg ABG pO2 (83-108) mmHg ABG O2 Saturation (94-97) % Sodium (137-145) mmol/L Chloride (98-107) mmol/L Carbon Dioxide (22-30) mmol/L BUN (9-20) mg/dL Creatinine (0.66-1.25) mg/dL Glucose (74-99) mg/dL POC Glucose (mg/dL) 214 H 201 H (70-110) mg/dL Calcium (8.4-10.2) mg/dL 07/29/23 07/29/23 07/29/23 Range/Units 04:45 06:27 08:11 WBC (3.8-10.6) k/uL RBC (4.30-5.90) m/uL Hgb (13.0-17.5) gm/dL Hct (39.0-53.0) % RDW (11.5-15.5) % Plt Count (150-450) k/uL Neutrophils # (1.3-7.7) k/uL Lymphocytes # (1.0-4.8) k/uL ABG pCO2 34 L (35-45) mmHg ABG pO2 124 H (83-108) mmHg ABG O2 Saturation 98.8 H (94-97) % Sodium 130 L (137-145) mmol/L Chloride 97 L (98-107) mmol/L Carbon Dioxide 19 L (22-30) mmol/L BUN 106 H* (9-20) mg/dL Creatinine 3.89 H (0.66-1.25) mg/dL Glucose 170 H (74-99) mg/dL POC Glucose (mg/dL) 223 H (70-110) mg/dL Calcium 7.6 L (8.4-10.2) mg/dL Assessment and Plan Plan: Assessment: 1. Status post liver and kidney transplant in [address] [facility]. Currently on IV steroids. 2. Acute kidney injury secondary to ATN secondary to cardiac arrest. Renal function worsening. Creatinine 3.89 today. Received IV Lasix yesterday. 3. Chronic kidney disease stage IIIa with baseline creatinine 1.4-1.6 secondary to solitary kidney and long-term CNI use. 4. Bradycardia with PEA arrest. Dopamine discontinued. 5. Acute left parietal and occipital CVA. 6. Multiple liver lesions noted concerning for malignancy. Biopsy results pending. 7. Hyponatremia secondary to acute kidney injury. Hypervolemic. 8. Hyperkalemia secondary to acute kidney injury, acidosis and Prograf. Better. 9. Metabolic acidosis secondary to acute kidney injury and IV fluids. On oral bicarb. Plan: Status post IV Lasix July 28, 2023. Hold today. Maintain tube feeds. Maintain IV steroids. CellCept and Prograf held. Prograf level 14.7 dated July 24, 2023. Follow-up repeat level. Avoid nephrotoxins. Prognosis guarded. Continue to monitor renal function and urine output. Preserved EF noted on echo. Avoid milk of mag. Okay to use lactulose or MiraLAX if needed.
[2023-07-29 12:03] LABS: Glucose,Whole Blood 222 mg/dL (70-110)
--- NOTE | 2023-07-29 12:59 | P.PN ---
Subjective Progress Note Date: 07/29/23 72-year-old black male, who [facility], is seen in the emergency department, on July 18, for shortness of breath. The patient apparently has been having shortness of breath, since being discharged from [facility]. Recently, the patient was started on a fentanyl patch for back pain, but denies all other medications. He apparently was admitted at the other hospital, for total of 4 days according to his , and was found to have some lesions on his liver and lung. The patient is apparently awaiting an outpatient PET scan. He did see one of the cancer doctors at the other facility. Currently, the patient is seen in ER room 28. The patient is currently on BiPAP, with settings of 12/6 and 28%. According to his he has a history of liver and kidney transplantation. He is getting saline at 75 cc an hour. He apparently had a chest x-ray that was interpreted as normal, and a VQ scan that was interpreted as being very low probability for pulmonary embolism. He does not use oxygen at home. He quit smoking 43 years ago. He had a blood gas showing a pO2 of 124, pCO2 of 35, and a pH of 7.30. This is consistent with metabolic acidosis. His other medical history includes gastroesophageal reflux disease, hypertension, hyperlipidemia, liver kidney transplant at [facility] in 2016, diabetes, and gout. The patient is a former smoker, having quit some 43 years ago as mentioned above. Current labs include a white count of 16.2, hemoglobin 8.4, hematocrit 27.6, and a platelet count of 268,000. Sodium 126, potassium 5.2, chlorides 102, CO2 18, BUN 35, and creatinine 1.63. Calcium is 8.5. Glucose is 161. The patient has a nonanion gap metabolic acidosis, likely from his renal insufficiency/failure. The patient has a couple different chest x- rays, which did not show acute cardiopulmonary disease. Progress note dated July 22, 2023. The patient was seen yesterday in consultation, when he was in the emergency department. The patient was admitted to the floor. Sometime early this morning, the patient developed bradycardia, and pulseless electrical activity. At that time, the patient's blood glucose was only 25. The patient was intubated, for respiratory failure, transferred to the intensive care unit. He is currently in the ICU, on the ventilator. Settings include volume assist- control, rate 20, tidal volume 450, FiO2 50%, PEEP of 5. Blood gases show pO2 of 243, pCO2 42, and a pH of 7.25. The patient is getting dextrose with half- normal saline at 75 cc an hour, propofol at 50 mcg/kg/min. He remains on Levaquin. His procalcitonin level was elevated at 4.10. Current labs include a white count 19.4, hemoglobin 8.2, hematocrit 27.3, and a platelet count of 2 62,000. Sodium 131, potassium 5.2, chlorides 104, CO2 17, anion gap 10, BUN 31, and creatinine 1.46. Glucose is 120. AST is 138. ALT is 87. Alkaline phosphatase is 620. Procalcitonin level was 4.10. He tested negative for influenza, RSV, and coronavirus. Chest x-ray shows the tip of the central venous catheter, at the junction of the superior vena cava and right atrium. Chest x-ray also suggest some pulmonary vascular congestion. Progress note dated July 23, 2023. 72-year-old black male, seen in follow-up, room 259. The patient remains on the mechanical ventilator. Current vent settings include volume assist-control, rate 20, tidal volume 450, FiO2 50%. PEEP of 5. Blood gases show pO2 176, pCO2 33, pH is 7.31. The patient is getting saline at 75 cc an hour, propofol at 40 mcg/kg/min. Currently, norepinephrine is on hold. He is getting vital AF at 30, with a goal of 42. He continues on cefepime. We did attempt a daily interruption of sedation, but he did poorly and, we could not do a spontaneous breathing trial. He was placed back on the ventilator. Current labs include a white count of 13.1, hemoglobin 7.9, hematocrit 25.4, and a normal platelet count. Sodium 127, potassium 5, chlorides 106, CO2 15, BUN 32, creatinine 1.32. Glucose is 185. Calcium is 8. Chest x-ray shows a properly positioned endotracheal tube. In addition, there may be an infiltrate in the right lung, with volume loss in the right lung, and a small right-sided pleural effusion. On today's evaluation of 07/24/2023, the patient is being seen for a follow-up. Patient cardiac arrest and the patient remains intubated on mechanical ventilator. Noted the patient was intubated on 07/22/2023 following cardiac arrest that followed an episode of bradycardia followed by pulseless electrical activity. During that time, the patient was also hypoglycemic. Noted the patient is a very complicated history of liver and kidney transplant and the patient has undergone his transportation back in 2016 at [facility]. The patient has been maintained on immunosuppressive agents with a combination of CellCept and Prograf and low-dose prednisone on an outpatient basis. Note that the CellCept is currently on hold and the patient remains on a combination of Prograf and low-dose prednisone. On a separate note, a CAT scan of the chest that was done also on this patient at [facility] showed extensive bilateral pulmonary nodules which raise the possibility of underlying metastatic disease/infection/post transplant lymphoproliferative disorder. If final diagnosis not been made at this point in time. In fact, the patient is currently on a mechanical ventilator, and is afebrile. He is on assist-control mode of mechanical ventilation at rate of 20, tidal volume of 450, FiO2 is at 40% with a PEEP of 5. The blood gas showing a pH of 7.3 with a pCO2 of 30 and pO2 of 146. Peak airway pressure is around 15. IV fluids are currently at KVO. The patient is currently on vital AF at rate of 42 to cc an hour for enteral feeding and nutritional support. He is currently on no pressors. The WBC count of 15.2 with a hemoglobin of 7.7 and a platelet count of 165. The serum bicarb is at 12 with a sodium level of 126 and a potassium level of 5.2. BUN is at 42 with a creatinine of 1.8. LFTs remain abnormal with an AST of 58, ALT of 52 and an alkaline phosphatase of 596. Serum protein is at 2.0. The blood cultures are still pending, sputum culture also pending. The patient is currently hemodynamically stable on no pressors. He is known to have hypertension hyperlipidemia and diabetes mellitus type 2 and history of gout. Has echocardiogram that was done on 07/20/2023 showed preserved LV function without any significant valvular abnormalities and mild pulmonary hypertension was also seen. CAT scan of the brain done postarrest showed no acute intracranial process. Ultrasound of the abdomen and the bladder showed heterogeneous liver lesions the significance of which was not known. Possibility of hepatic metastasis cannot be completely ruled out. Postoperative dilatation of the common bile duct was seen and the transplanted kidney was noted. The patient's original kidneys are quite atrophic at this point in time. His procalcitonin level was 4.0 at the time of admission. On today's evaluation of 07/25/2023, the patient is being seen for a follow-up. Patient remains sedated on propofol which is running at 30 mcg/kg/min. Events from yesterday evening was noted. The patient had high degree AV block and she had Mobitz type II and episodes of third-degree AV block. Based on that, cardiology has been involved and the patient was started on dopamine at 5 mcg/kg/min. His current rhythm is sinus bradycardia. Note that the patient's echocardiogram showed a preserved LV function. Troponins will be rechecked and skip miner on the case for now. He remains intubated on mechanical ventilator. He is calm and comfortable. He is on assist-control mode at rate of 20, tidal volume of 450, FiO2 of 40% with a PEEP of 5. Blood gas showed a pH of 7.33 with a pCO2 of 33 and pO2 of 75. The chest x-ray from today shows no significant interval change and some atelectasis and small effusion in the right lung base. Orotracheal tube remains in a good location. CAT scan of the abdomen and pelvis was also done yesterday and it showed mid to distal small bowel loops being compressed. Mild partial small bowel obstruction/ileus cannot be completely excluded. The patient has extensive metastases to his liver along with ascites within the pelvis. There is also a loculated pleural effusion in the right lung base. Empyema is felt to be less likely at this point in time based on the clinical presentation. The patient is currently has a white cell count of 16.2 with a hemoglobin 7.4 and a platelet count of 136. The sodium is at 126, potassium is at 4.9 and serum bicarb is at 15 with a BUN of 46 and a creatinine of 2.35. LFTs show an AST of 145, ALT of 65, alkaline phosphatase of 527, and total protein of 4.3 with an albumin of 1.9. The Prograf level was 14.7. Nephrology on the case. Cardiology has also been consulted regarding the high degree AV block. Meanwhile, the patient is taking enteral feeding for nu tritional support and the patient is on vital AF At the rate of 44 cc an hour. On today's evaluation of 07/26/2023, the patient is being seen for a follow-up. The patient this morning is having jerking movement in his right upper extremity. This is very automatic and repetitive. Seizure was considered. Noted the patient is still on propofol running at 20 mcg/kg/min. Cardiac rhythm is first-degree AV block without any significant bradycardia arrhythmias noted yesterday the patient remains on dopamine at 5 mcg/kg/min. The patient is also on a bicarb infusion with a total of 2 ampoules of sodium bicarb and half-normal saline at rate of 100 cc an hour. He remains on mechanical ventilator settings of 20, tidal volume of 450, FiO2 40% with a PEEP of 5. Blood gas showed pH of 7.37 with a pCO2 of 79 and pO2 of 86. Initial CAT scan of the brain was negative. Repeat CAT scan of the brain will be needed specially there is underlying suspected seizure activity. The blood work from today shows a sodium level of 129 and a potassium level of 6.1. The patient was treated accordingly with Lokelma and the patient was also given D50 insulin and she is already on a bicarb infusion. She was also given calcium. Repeat potassium was down to 5.6. At the same time, the patient's BUN is at 63 with a creatinine of 2.81. Bicarb level is at 22. Blood sugars at 245 and the patient on Levemir insulin 13 units along with a sliding scale coverage. White cell count of 24.5 with a hemoglobin of 7.1. Repeat chest x-ray was done today and the patient was found to have the ET tube being around 3 cm above the divine. Smaller lung volumes and generalized haziness along with some atelectatic changes. All of the lines are in good location. The patient is afebrile at this point in time. On 07/28/2023, the patient is being seen for a follow-up. Unresponsive despite being off propofol and fentanyl for approximately 48 hours. Grimaces only to deep painful stimulation. 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 He was also having episodes of seizure activity, focal seizure involving the left upper extremity. The patient was given Ativan and subsequently patient was started on Vimpat 100 mg IV every 12 hours. The patient is also on Keppra 5 mg every 12 hours. No visible seizures. EEG was done today. Meanwhile, we are still awaiting the biopsy results from the liver. The CEA level was very much elevated and so was the CA 19-9 level. The patient remains intubated on mechanical ventilator. The patient is in a first-degree AV block. Dopamine has been discontinued. No pressors at this point in time. He remains on assist-control mode rate of 20, tidal volume of 400, FiO2 40% with a PEEP of 5. Blood gas showed pH of 7.37 with a pCO2 of 40 and pO2 of 100. The chest x-ray finding shows a small right-sided pleural effusion and scattered bilateral pulmonary nodules. Sodium was at 130 with a potassium level of 5, bicarb is at 20 with a BUN of 88 and a creatinine of 3.18. There is close of 19 with a hemoglobin of 7.2 and a platelet count of 119. Remains on IV cefepime as an empiric antibiotic coverage. The patient is receiving enteral feeding for nutritional support with Nepro at rate of 37 cc an hour. The patient on Lovenox for DVT prophylaxis. No other significant events otherwise for now. Had a nice discussion with the family and discussed the poor prognosis and outcome of this patient especially with the concern of malignancy. On 07/29/2023, seen the patient for a follow-up. Essentially unchanged. Barely grimaces to painful stimulation. Otherwise he is off sedation and the patient is completely unresponsive and does not follow any commands and he does not show any level of alertness at this point in time. No seizure activity has been noted and the patient remains on a combination of Keppra and Vimpat. The preliminary pathology from the liver biopsy is consistent with carcinoma which could be related to either lung or GI tract. Final pathology results are not available at this point in time. Oncology is on the case. As mentioned, the patient had a significant elevated CEA and CA 19-9 levels. This morning, the pa tient is off sedation. The patient is on assist-control mode of mechanical ventilation at a rate of 20, tidal volume of 450, FiO2 40% with a PEEP of 5. pH is at 7.41 with a pCO2 of 34 and pO2 of 124. The patient's renal function is present constantly getting worse. BUN is at 116 with a creatinine of 0.89 and a sodium levels at 130 with a potassium level of 4.6. Serum bicarb is at 19. Hemoglobin is down to 6.9 and there is no evidence of any acute bleeding. WBC count is at 15.2 with a platelet count of 127. Blood sugars at 222. The patient continues to receive enteral feeding with Nepro at rate of 41 cc an hour. IV fluids have informed normal citrate of 20 and a fluid balance is +2.2 L over the past 24 hours. Chest x-ray is essentially unchanged and the patient's ET tube was in adequate location. It is around 3 cm above the divine and the patient also has a small right-sided pleural effusion and scattered bilateral pulmonary nodules. Objective - Vital Signs Vital signs: Vital Signs Temp 98.2 F 07/29/23 08:00 Pulse 83 07/29/23 11:00 Resp 20 07/29/23 11:00 BP 172/79 07/29/23 11:00 Pulse Ox 100 07/29/23 11:00 FiO2 40 07/29/23 11:44 Intake & Output 07/28/23 07/29/23 07/29/23 18:59 06:59 18:59 Intake Total 671.251 922 142 Output Total 380 435 255 Balance 291.251 487 -113 Weight 93.4 kg 98.4 kg Intake: IV 413.0 299 142 0.9 330 260 80 Cefepime 1 gm In Sodium 50.0 50 Chloride 0.9% 50 ml @ 12. 5 mls/hr IVPB Q12HR MARCEL Rx#:[id number] pressure bag 33 39 12 Intake, IV Titration 23.251 Amount propofoL 1,000 mg In 23.251 Empty Bag 1 bag @ 15 MCG/ KG/MIN 7.267 mls/hr IV . [id number] MARCEL Rx#:[id number] Tube Feeding 205 533 Other 30 90 Output: Urine 380 435 255 Other: Voiding Method Indwelling Catheter Indwelling Catheter # Bowel Movements 1 ABP, PAP, CO, CI - Last Documented Arterial Blood Pressure 180/67 - Exam No acute distress, intubated, and patient remains unresponsive despite being off sedatives for the past 48 hours. No active seizures at this point in time. The patient is calm and comfortable and the patient is currently sedated on propofol. The orotracheal and orogastric tube are both in place. Head exam was generally normal. There was no scleral icterus or corneal arcus. Mucous membranes were moist. HEENT examination is grossly unremarkable. Neck supple. Full range of motion. No adenopathy thyromegaly or neck vein distention. Cardiovascular examination reveals regular rhythm rate. S1-S2 normal. No S3 or S4. No discernible murmur noted. Heart sounds are distant. Lungs reveal clear breath sounds. Breath sounds are equal bilaterally. No adventitious lung sounds including wheezes rhonchi or crackles. Abdomen soft bowel sounds are heard. No masses or tenderness. Extremities are intact. No cyanosis clubbing or edema. Skin is without rash or lesion. Neurologic examination cannot be assessed at this time. Patient is sedated and is calm and comfortable. No seizure activity has been noted. The patient is only grimacing to deep painful stimulation. Does not withdrawal. Sensorimotor function cannot be accurately assessed. However, no facial asymmetry. Pupils sluggishly reactive to light at 3 mm. No nystagmus. No preferential gaze. No Babinski. - Labs CBC & Chem 7: 07/29/23 04:45 07/29/23 04:45 Labs: Abnormal Lab Results - Last 24 Hours (Table) 07/28/23 07/28/23 07/28/23 Range/Units 16:17 20:39 23:44 WBC (3.8-10.6) k/uL RBC (4.30-5.90) m/uL Hgb (13.0-17.5) gm/dL Hct (39.0-53.0) % RDW (11.5-15.5) % Plt Count (150-450) k/uL Neutrophils # (1.3-7.7) k/uL Lymphocytes # (1.0-4.8) k/uL ABG pCO2 (35-45) mmHg ABG pO2 (83-108) mmHg ABG O2 Saturation (94-97) % Sodium (137-145) mmol/L Chloride (98-107) mmol/L Carbon Dioxide (22-30) mmol/L BUN (9-20) mg/dL Creatinine (0.66-1.25) mg/dL Glucose (74-99) mg/dL POC Glucose (mg/dL) 176 H 193 H 214 H (70-110) mg/dL Calcium (8.4-10.2) mg/dL 07/29/23 07/29/23 07/29/23 Range/Units 04:04 04:45 04:45 WBC 15.2 H (3.8-10.6) k/uL RBC 2.37 L (4.30-5.90) m/uL Hgb 6.9 L* (13.0-17.5) gm/dL Hct 21.9 L (39.0-53.0) % RDW 16.3 H (11.5-15.5) % Plt Count 127 L (150-450) k/uL Neutrophils # 14.0 H (1.3-7.7) k/uL Lymphocytes # 0.5 L (1.0-4.8) k/uL ABG pCO2 (35-45) mmHg ABG pO2 (83-108) mmHg ABG O2 Saturation (94-97) % Sodium 130 L (137-145) mmol/L Chloride 97 L (98-107) mmol/L Carbon Dioxide 19 L (22-30) mmol/L BUN 106 H* (9-20) mg/dL Creatinine 3.89 H (0.66-1.25) mg/dL Glucose 170 H (74-99) mg/dL POC Glucose (mg/dL) 201 H (70-110) mg/dL Calcium 7.6 L (8.4-10.2) mg/dL 07/29/23 07/29/23 07/29/23 Range/Units 06:27 08:11 12:01 WBC (3.8-10.6) k/uL RBC (4.30-5.90) m/uL Hgb (13.0-17.5) gm/dL Hct (39.0-53.0) % RDW (11.5-15.5) % Plt Count (150-450) k/uL Neutrophils # (1.3-7.7) k/uL Lymphocytes # (1.0-4.8) k/uL ABG pCO2 34 L (35-45) mmHg ABG pO2 124 H (83-108) mmHg ABG O2 Saturation 98.8 H (94-97) % Sodium (137-145) mmol/L Chloride (98-107) mmol/L Carbon Dioxide (22-30) mmol/L BUN (9-20) mg/dL Creatinine (0.66-1.25) mg/dL Glucose (74-99) mg/dL POC Glucose (mg/dL) 223 H 222 H (70-110) mg/dL Calcium (8.4-10.2) mg/dL Assessment and Plan Plan: Acute cardiac arrest with a normal echocardiogram and no ongoing cardiac arrhythmias. The patient had a episode of bradycardia followed by PEA. During the same time, the patient was hypoglycemic. This could have been a acute hypo glycemic event. Currently debated on mechanical ventilator and the patient is currently hemodynamically stable. The patient remains on mechanical ventilator, the patient remains unresponsive at this point in time. CAT scan of the brain was consistent with stroke as discussed earlier. The patient remains off sedatives. No neurologic signs of recovery at this point in time. Acute hypoxic respiratory failure postcardiac arrest and the patient is requiring intubation mechanical ventilation, chest x-ray and blood gas from today were noted Bilateral pulmonary nodules. CAT scan of the chest that was done in outside hospital showed multiple bilateral pulmonary nodules/micronodules and obviously differential diagnosis regarding this abnormality is quite extensive specially with his underlying immunosuppressive state. Possibilities include malignancy i as the patient also has extensive hepatic metastatic lesions and a biopsy of the liver was done. CEA and CA 19-9 levels were considerably elevated. Awaiting final pathologic findings from liver biopsy. Consider GI tract/pancreatic ma lignancy with metastasis to the liver and the lungs. Primary lung cancer is felt to be less likely at this point. Awaiting final pathology. High degree AV block, improved, current cardiac rhythm is first-degree AV block and the patient off dopamine for now History of kidney/liver transplantation, September 2015, at [facility]. Patient has been maintained on a combination of Prograf, CellCept and prednisone, based on worsening renal function, Prograf was discontinued and the patient was also taken off CellCept and the patient is currently on stress dose hydrocortisone. The renal function is progressively getting worse Chronic kidney disease, posttransplantation, with a component of an acute kidney injury with some mild hyperkalemia, treated and a potassium level is stable Multiple hepatic lesions, case was discussed with interventional radiology. Suspect pancreatic cancer. Fine-needle aspirate of the liver mass is to be done today. Elevated CEA and CA 19-9 level. Consider GI malignancy including possibility of pancreatic cancer. Diminished level of consciousness, unresponsive, off sedatives for the past 48 hours. CAT scan of the brain showed a infarct involving left occipital/parietal area. Seizure, likely focal seizures currently on a combination of Vimpat and Keppra. Right lower lobe pleural effusion Seizure with repetitive movement of the right upper extremity is suspected. The patient is currently on propofol. Chronic elevation of the alkaline phosphatase and a component of transaminitis which is essentially improving at this point in time. Recent evaluation at [facility], which revealed nodules on his liver and lung, rule out carcinoma. Awaiting fine-needle aspirate of the liver History of hypertension. History of hyperlipidemia. History of gastroesophageal reflux disease. History of diabetes, currently on Levemir insulin History of gout. Previous history of tobacco use. Enteral feeding for nutritional support Hyponatremia, sodium levels improved currently at 130 Plan: Keep the patient off sedatives for now CAT scan of the brain was noted and is consistent with infarct involving the left parietal and occipital lobes Abnormal EEG with seizure activity and the patient is currently on a combination of Vimpat and Keppra and neurology on the case Continue off dopamine the patient is currently in a first-degree AV block Will continue ventilator support for now. No vent changes for today. Awaiting final pathology results from the liver biopsy high suspicion for malignancy as the patient has elevated CEA and CA 19-9 level Metastatic liver disease, awaiting fine-needle aspirate of the liver masses. Keep immunosuppressive medication on hold and the patient is currently on stress dose hydrocortisone. Monitor potassium levels Continue enteral feeding for nutritional support Continue monitoring mentation. Condition is critical. Condition is critical and will coordinate care with infectious disease and nephrology. Continue Lovenox for DVT prophylaxis Continue IV cefepime Condition is critical we will continue to follow make further recommendations based on the progress. This evaluation was done more than 40 minutes. Time with Patient: Greater than 30
--- NOTE | 2023-07-29 13:13 | P.PN ---
Subjective Progress Note Date: 07/29/23 Principal diagnosis: Reason for follow-up is possible pneumonia Patient is a 72-year-old male with a past medical history negative for hypertension hyperlipidemia reflux, end-stage renal disease s/p renal and liver transplant in 2016 recent vascular bypassed presented to hospital due to abdominal and worsening back pain did have a cardiac arrest for the patient has been intubated and admitted to the ICU. On today's visit that is 07/29/2023,the patient remains to be afebrile, patient remains to be intubated on the vent FiO2 at 40% no significant purulent secretions through the ET diarrhea or any other changes reported by the nursing staff not requiring any pressor support. Patient white count is down to 15.2, creatinine is 3.89 cultures have been negative so far Objective - Vital Signs Vital signs: Vital Signs Temp 98.2 F 07/29/23 08:00 Pulse 83 07/29/23 11:00 Resp 20 07/29/23 11:00 BP 172/79 07/29/23 11:00 Pulse Ox 100 07/29/23 11:00 FiO2 40 07/29/23 11:44 Intake & Output 07/28/23 07/29/23 07/29/23 18:59 06:59 18:59 Intake Total 671.251 922 142 Output Total 380 435 255 Balance 291.251 487 -113 Weight 93.4 kg 98.4 kg Intake: IV 413.0 299 142 0.9 330 260 80 Cefepime 1 gm In Sodium 50.0 50 Chloride 0.9% 50 ml @ 12. 5 mls/hr IVPB Q12HR MARCEL Rx#:[id number] pressure bag 33 39 12 Intake, IV Titration 23.251 Amount propofoL 1,000 mg In 23.251 Empty Bag 1 bag @ 15 MCG/ KG/MIN 7.267 mls/hr IV . [id number] MARCEL Rx#:[id number] Tube Feeding 205 533 Other 30 90 Output: Urine 380 435 255 Other: Voiding Method Indwelling Catheter Indwelling Catheter # Bowel Movements 1 ABP, PAP, CO, CI - Last Documented Arterial Blood Pressure 180/67 - Exam GENERAL DESCRIPTION: An elderly male intubated on the vent RESPIRATORY SYSTEM: Unlabored breathing , decreased breath sounds at bases HEART: S1 S2 regular rate and rhythm , ABDOMEN: Soft , no tenderness EXTREMITIES: No edema feet - Labs CBC & Chem 7: 07/29/23 04:45 07/29/23 04:45 Labs: Abnormal Lab Results - Last 24 Hours (Table) 07/28/23 07/28/23 07/28/23 Range/Units 16:17 20:39 23:44 WBC (3.8-10.6) k/uL RBC (4.30-5.90) m/uL Hgb (13.0-17.5) gm/dL Hct (39.0-53.0) % RDW (11.5-15.5) % Plt Count (150-450) k/uL Neutrophils # (1.3-7.7) k/uL Lymphocytes # (1.0-4.8) k/uL ABG pCO2 (35-45) mmHg ABG pO2 (83-108) mmHg ABG O2 Saturation (94-97) % Sodium (137-145) mmol/L Chloride (98-107) mmol/L Carbon Dioxide (22-30) mmol/L BUN (9-20) mg/dL Creatinine (0.66-1.25) mg/dL Glucose (74-99) mg/dL POC Glucose (mg/dL) 176 H 193 H 214 H (70-110) mg/dL Calcium (8.4-10.2) mg/dL 07/29/23 07/29/23 07/29/23 Range/Units 04:04 04:45 04:45 WBC 15.2 H (3.8-10.6) k/uL RBC 2.37 L (4.30-5.90) m/uL Hgb 6.9 L* (13.0-17.5) gm/dL Hct 21.9 L (39.0-53.0) % RDW 16.3 H (11.5-15.5) % Plt Count 127 L (150-450) k/uL Neutrophils # 14.0 H (1.3-7.7) k/uL Lymphocytes # 0.5 L (1.0-4.8) k/uL ABG pCO2 (35-45) mmHg ABG pO2 (83-108) mmHg ABG O2 Saturation (94-97) % Sodium 130 L (137-145) mmol/L Chloride 97 L (98-107) mmol/L Carbon Dioxide 19 L (22-30) mmol/L BUN 106 H* (9-20) mg/dL Creatinine 3.89 H (0.66-1.25) mg/dL Glucose 170 H (74-99) mg/dL POC Glucose (mg/dL) 201 H (70-110) mg/dL Calcium 7.6 L (8.4-10.2) mg/dL 07/29/23 07/29/23 07/29/23 Range/Units 06:27 08:11 12:01 WBC (3.8-10.6) k/uL RBC (4.30-5.90) m/uL Hgb (13.0-17.5) gm/dL Hct (39.0-53.0) % RDW (11.5-15.5) % Plt Count (150-450) k/uL Neutrophils # (1.3-7.7) k/uL Lymphocytes # (1.0-4.8) k/uL ABG pCO2 34 L (35-45) mmHg ABG pO2 124 H (83-108) mmHg ABG O2 Saturation 98.8 H (94-97) % Sodium (137-145) mmol/L Chloride (98-107) mmol/L Carbon Dioxide (22-30) mmol/L BUN (9-20) mg/dL Creatinine (0.66-1.25) mg/dL Glucose (74-99) mg/dL POC Glucose (mg/dL) 223 H 222 H (70-110) mg/dL Calcium (8.4-10.2) mg/dL Assessment and Plan (1) Pneumonia Current Visit: Yes Status: Acute Code(s): J18.9 - PNEUMONIA, UNSPECIFIED ORGANISM SNOMED Code(s): 548073640 (2) Leukocytosis Current Visit: Yes Status: Acute Code(s): D72.829 - ELEVATED WHITE BLOOD CELL COUNT, UNSPECIFIED SNOMED Code(s): 313098927 (3) Penicillin allergy Current Visit: Yes Status: Acute Code(s): Z88.0 - ALLERGY STATUS TO PE NICILLIN SNOMED Code(s): 46694944 Plan: 1patient with acute respiratory failure which is likely multifactorial in this patient who did have a cardiac arrest this morning patient did have elevated procalcitonin and a possible component of pneumonia not entirely excluded possible gram-negative 2-blood and sputum culture are so far negative 3-patient is afebrile, white count down to 15,000 blood and sputum culture negative and resistant pathogen covered with cefepime daughter at the bedside questions and concerns were answered Dictation was produced using [employer] software. please excuse any grammatical, word or spelling errors. Time with Patient: Less than 30
--- NOTE | 2023-07-29 13:24 | P.PN ---
Subjective Progress Note Date: 07/29/23 Pts family is considering comfort measures in light of very poor prognosis given extensive malignancy. Hgb low at 6.9 today. General: intubated, sedated HEENT: normocephalic, atraumatic, no tracheal deviation Respiratory: symmetric chest rise, no cyanosis, ventilator dependent CVS: perfusing all extremities, no distal gangrene, bilateral pitting edema GI: soft, ND : no SPT, no CVAT, soriano is present Neuro: sedated Hospital Course: Patient is a 59-year-old male with BPH, carotid stenosis, cirrhosis, diabetes, end-stage renal disease status post renal and liver transplant no longer requiring hemodialysis, glaucoma, hypertension, and multiple other comorbid conditions who presented to the emergency department with complaints of shortness of breath. Patient had recently been at an outside hospital for abdominal and back pain they are workup revealed lesions in his liver, kidney, and lung and he was requiring Dilaudid [id number] for pain. He was discharged on a fentanyl patch with a PET scan scheduled for July with Dr. Wise. In the emergency department here he was noted to have a white blood cell count of 16, sodium 124, BUN 30, creatinine 1.76 (baseline creatinine 2), AST 241, ALT 153, alkaline phosphatase 669, and a D-dimer of 18.53. Patient was admitted with concerns for possible pulmonary embolism and he was started on Lovenox. He subsequently underwent a ventilation/perfusion scan which demonstrated low probability for pulmonary embolism. He underwent echocardiogram which demonstrated ejection fraction of 55 to 60% with mild aorti c stenosis. Renal and bladder ultrasound demonstrated hepatic metastatic disease with transplanted kidneys and atrophic [place] kidneys. Oncology was consulted. They recommended continuing pain control considering additional imaging and IR consultation. Patient was noted to have change in mentation and therefore underwent a CT of the head which demonstrated no acute intracranial process. He then became hypoxic requiring high flow nasal cannula and ultimately BiPAP. Pulmonary was consulted and added bronchodilators. On the morning of 07/21 patient was undergoing a BiPAP weaning trial when he lost pulses and CPR was initiated. He had ROSC after 2 rounds of epinephrine however his mental status did not improve and he was subsequently intubated and transferred to the ICU. He required norepinephrine for less than 24 hours. Infectious disease was consulted he recommended adding cefepime while awaiting cultures to finalize. Nephrology was consulted who recommended holding CellCept and continuing tacrolimus and prednisone. His Tacro was then held. Patient became bradycardiac overnight on 07/24 and cardio was consulted and the patient was started on a dobutamine gtt. Patient developed seizures early this morning and was given Ativan from critical care with resolution of seizure-like activity. Neurology was consulted. CT brain was ordered and patient was loaded with Keppra. He underwent liver biopsy on 07/26/23 Assessment/Plan: S/P Cardiac arrest Multiple lung and liver nodules, probable malignancy Intractable pain likely related to malignancy Acute hypoxic respiratory failure Transaminitis suspect secondary to liver lesions versus hepatitis C - s/p liver biopsy, pathology pending, discussed with Dr. Dobbs 07/27, this is likely neoplastic - Await further oncology recs - Await further ID recs - Cefepime 2 g IV piggyback twice daily D # 8, lamivudine 100mg daily - Solucortef 100 mg IVP q 8 hours - Hold Lipitor due to elevated liver enzymes - Fentanyl 75 mcg patch has been continued. - DuoNebs every 4 hours and as needed Seizures Right Frontal and Left parietal and occipital lobe likely represent watershed infarcts, discussed these findings with Neurology Acute encephalopathy, possible anoxic -Await neurology consultation -Ideally patient would undergo MRI of able to come off of vent -EEG is severely abnormal due to generalized background suppression suggestive of generalized cerebral dysfunction -Keppra 500 mg every 12 hours -continue daily sedation holidays to assess mental status Episodes of complete heart block with unclear etiology NSTEMI - Off coreg - Cardiology note reviewed: Continue supportive care and stop IV dopamine - Dopamine discontinued - repeat echo with EF 65-60% Chronic kidney disease stage III status post renal and liver transplant Hyponatremia, possible SIADH Metabolic acidosis Hyperkalemia - Nephrology note reviewed: maintain tube feeds, maintain hydrocortisone, continue to hold tacro -IVF NS 20 cc/hr - Continue to hold tacrolimus, cellcept, and prednisone 2 mg daily - Continue to follow renal function Acute Blood Loss superimposed on normocytic anemia - Follow CBC again later today and consider transfusion of 1U PRBC given hgb 6.9 Diabetes mellitus type 2 with episodes of hypoglycemia - NovoLog 2 units every 6 hours in addition to sliding scale every 6 hours - Maintain levemir to 28 units once daily - Follow blood sugars Chronic conditions BPH Carotid stenosis Hepatitis C Hypertension Dyslipidemia Osteoarthritis Vitamin D deficiency Pulmonary embolism ruled out Poor over all prognosis DVT prophylaxis: Lovenox Anticipated discharge date: Pending Clinical Course Anticipated discharge place: Pending Clinical Course This dictation was prepared using [employer] voice recognition software. Though every attempt is made to correct errors during dictation some may still exist. Objective - Vital Signs Vital signs: Vital Signs Temp 98.2 F 07/29/23 08:00 Pulse 82 07/29/23 13:13 Resp 20 07/29/23 11:00 BP 172/79 07/29/23 11:00 Pulse Ox 100 07/29/23 11:00 FiO2 40 07/29/23 13:06 Intake & Output 07/28/23 07/29/23 07/29/23 18:59 06:59 18:59 Intake Total 671.251 922 142 Output Total 380 435 255 Balance 291.251 487 -113 Weight 93.4 kg 98.4 kg Intake: IV 413.0 299 142 0.9 330 260 80 Cefepime 1 gm In Sodium 50.0 50 Chloride 0.9% 50 ml @ 12. 5 mls/hr IVPB Q12HR [facility] Rx#:[id number] pressure bag 33 39 12 Intake, IV Titration 23.251 Amount propofoL 1,000 mg In 23.251 Empty Bag 1 bag @ 15 MCG/ KG/MIN 7.267 mls/hr IV . [id number] [facility]ARCEL Rx#:[id number] Tube Feeding 205 533 Other 30 90 Output: Urine 380 435 255 Other: Voiding Method Indwelling Catheter Indwelling Catheter # Bowel Movements 1 ABP, PAP, CO, CI - Last Documented Arterial Blood Pressure 180/67 - Labs CBC & Chem 7: 07/29/23 04:45 07/29/23 04:45 Labs: Abnormal Lab Results - Last 24 Hours (Table) 07/28/23 07/28/23 07/28/23 Range/Units 16:17 20:39 23:44 WBC (3.8-10.6) k/uL RBC (4.30-5.90) m/uL Hgb (13.0-17.5) gm/dL Hct (39.0-53.0) % RDW (11.5-15.5) % Plt Count (150-450) k/uL Neutrophils # (1.3-7.7) k/uL Lymphocytes # (1.0-4.8) k/uL ABG pCO2 (35-45) mmHg ABG pO2 (83-108) mmHg ABG O2 Saturation (94-97) % Sodium (137-145) mmol/L Chloride (98-107) mmol/L Carbon Dioxide (22-30) mmol/L BUN (9-20) mg/dL Creatinine (0.66-1.25) mg/dL Glucose (74-99) mg/dL POC Glucose (mg/dL) 176 H 193 H 214 H (70-110) mg/dL Calcium (8.4-10.2) mg/dL 07/29/23 07/29/23 07/29/23 Range/Units 04:04 04:45 04:45 WBC 15.2 H (3.8-10.6) k/uL RBC 2.37 L (4.30-5.90) m/uL Hgb 6.9 L* (13.0-17.5) gm/dL Hct 21.9 L (39.0-53.0) % RDW 16.3 H (11.5-15.5) % Plt Count 127 L (150-450) k/uL Neutrophils # 14.0 H (1.3-7.7) k/uL Lymphocytes # 0.5 L (1.0-4.8) k/uL ABG pCO2 (35-45) mmHg ABG pO2 (83-108) mmHg ABG O2 Saturation (94-97) % Sodium 130 L (137-145) mmol/L Chloride 97 L (98-107) mmol/L Carbon Dioxide 19 L (22-30) mmol/L BUN 106 H* (9-20) mg/dL Creatinine 3.89 H (0.66-1.25) mg/dL Glucose 170 H (74-99) mg/dL POC Glucose (mg/dL) 201 H (70-110) mg/dL Calcium 7.6 L (8.4-10.2) mg/dL 07/29/23 07/29/23 07/29/23 Range/Units 06:27 08:11 12:01 WBC (3.8-10.6) k/uL RBC (4.30-5.90) m/uL Hgb (13.0-17.5) gm/dL Hct (39.0-53.0) % RDW (11.5-15.5) % Plt Count (150-450) k/uL Neutrophils # (1.3-7.7) k/uL Lymphocytes # (1.0-4.8) k/uL ABG pCO2 34 L (35-45) mmHg ABG pO2 124 H (83-108) mmHg ABG O2 Saturation 98.8 H (94-97) % Sodium (137-145) mmol/L Chloride (98-107) mmol/L Carbon Dioxide (22-30) mmol/L BUN (9-20) mg/dL Creatinine (0.66-1.25) mg/dL Glucose (74-99) mg/dL POC Glucose (mg/dL) 223 H 222 H (70-110) mg/dL Calcium (8.4-10.2) mg/dL
[2023-07-29 13:31] LABS: Glucose,Whole Blood 185 mg/dL (70-110)
[2023-07-29] MEDS: SODIUM CHLORIDE 0.45% 1,000 ML IV SCH (16:20)
[2023-07-29 17:07] LABS: Glucose,Whole Blood 180 mg/dL (70-110)
[2023-07-29 20:00] LABS: Glucose,Whole Blood 165 mg/dL (70-110)
[2023-07-29 20:32] LABS: HCT 21.6 % (39.0-53.0); Hypochromasia Slight; MCH 28.8 pg (25.0-35.0); MCHC 31.3 g/dL (31.0-37.0); MCV 92.1 fL (80.0-100.0); Mean Platelet Volume 9.2; Platelet Count 129 k/uL (150-450); RBC 2.34 m/uL (4.30-5.90); RDW 15.8 % (11.5-15.5); WBC 16.6 k/uL (3.8-10.6)
[2023-07-29 20:34] LABS: HGB 6.7 gm/dL (13.0-17.5)
[2023-07-29 23:43] LABS: Glucose,Whole Blood 154 mg/dL (70-110)
[2023-07-30 04:02] LABS: Glucose,Whole Blood 156 mg/dL (70-110)
[2023-07-30 05:24] LABS: HCT 24.7 % (39.0-53.0); HGB 8.1 gm/dL (13.0-17.5); MCH 30.1 pg (25.0-35.0); MCHC 32.8 g/dL (31.0-37.0); MCV 91.7 fL (80.0-100.0); Mean Platelet Volume 8.4; Platelet Count 133 k/uL (150-450); RDW 15.8 % (11.5-15.5); WBC 16.4 k/uL (3.8-10.6)
[2023-07-30 05:29] LABS: African American GFR (CKD) 16 (>60 ml/min/1.73 sqM); Anion Gap 14 mmol/L; Calcium 7.7 mg/dL (8.4-10.2); Carbon Dioxide 19 mmol/L (22-30); Chloride 98 mmol/L (98-107); Glucose 171 mg/dL (74-99); Non-African American GFR(CKD) 14 (>60 ml/min/1.73 sqM); Potassium 4.4 mmol/L (3.5-5.1); Sodium 131 mmol/L (137-145)
[2023-07-30 05:40] LABS: Blood Urea Nitrogen 127 mg/dL (9-20)
[2023-07-30 05:51] LABS: ABG Base Excess -4.6 mmol/L; ABG HCO3 21 mmol/L (21-25); ABG Oxygen Saturation 98.2 % (94-97); ABG PCO2 36 mmHg (35-45); ABG PH 7.37 (7.35-7.45); ABG PO2 119 mmHg (83-108); ABG TCO2 22 mmol/L (19-24); Allen Test Performed? Yes
[2023-07-30 06:17] LABS: Glucose,Whole Blood 216 mg/dL (70-110)
[2023-07-30 08:54] LABS: Glucose,Whole Blood 218 mg/dL (70-110)
[2023-07-30 09:16] LABS: ALT 129 U/L (4-49); AST 109 U/L (17-59)
--- NOTE | 2023-07-30 09:19 | P.PN ---
Subjective Progress Note Date: 07/29/23 Patient was seen for follow-up. Patient's and multiple other family members were present. Patient is off propofol since yesterday, for 24 hours. Patient currently on cefepime 1 g every 12 hours. Objective - Vital Signs Vital signs: Vital Signs Temp 98.2 F 07/29/23 08:00 Pulse 69 07/29/23 13:04 Resp 20 07/29/23 11:00 BP 172/79 07/29/23 11:00 Pulse Ox 100 07/29/23 11:00 FiO2 40 07/29/23 11:44 Intake & Output 07/28/23 07/29/23 07/29/23 18:59 06:59 18:59 Intake Total 671.251 922 142 Output Total 380 435 255 Balance 291.251 487 -113 Weight 93.4 kg 98.4 kg Intake: IV 413.0 299 142 0.9 330 260 80 Cefepime 1 gm In Sodium 50.0 50 Chloride 0.9% 50 ml @ 12. 5 mls/hr IVPB Q12HR [facility] Rx#:[id number] pressure bag 33 39 12 Intake, IV Titration 23.251 Amount propofoL 1,000 mg In 23.251 Empty Bag 1 bag @ 15 MCG/ KG/MIN 7.267 mls/hr IV . [id number] [facility]CLE Rx#:[id number] Tube Feeding 205 533 Other 30 90 Output: Urine 380 435 255 Other: Voiding Method Indwelling Catheter Indwelling Catheter # Bowel Movements 1 ABP, PAP, CO, CI - Last Documented Arterial Blood Pressure 180/67 - Exam Patient's pupils are equal, round and reacting, oculocephalics mildly present. Corneals very minimally present. Patient is breathing over the ventilator. Patient does not respond to calling his name, or with painful stimuli. No obvious facial twitching noted. Facial twitching involved with painful stimuli. No seizures. - Labs CBC & Chem 7: 07/30/23 04:50 07/30/23 04:50 Labs: Abnormal Lab Results - Last 24 Hours (Table) 07/28/23 07/28/23 07/28/23 Range/Units 16:17 20:39 23:44 WBC (3.8-10.6) k/uL RBC (4.30-5.90) m/uL Hgb (13.0-17.5) gm/dL Hct (39.0-53.0) % RDW (11.5-15.5) % Plt Count (150-450) k/uL Neutrophils # (1.3-7.7) k/uL Lymphocytes # (1.0-4.8) k/uL ABG pCO2 (35-45) mmHg ABG pO2 (83-108) mmHg ABG O2 Saturation (94-97) % Sodium (137-145) mmol/L Chloride (98-107) mmol/L Carbon Dioxide (22-30) mmol/L BUN (9-20) mg/dL Creatinine (0.66-1.25) mg/dL Glucose (74-99) mg/dL POC Glucose (mg/dL) 176 H 193 H 214 H (70-110) mg/dL Calcium (8.4-10.2) mg/dL 07/29/23 07/29/23 07/29/23 Range/Units 04:04 04:45 04:45 WBC 15.2 H (3.8-10.6) k/uL RBC 2.37 L (4.30-5.90) m/uL Hgb 6.9 L* (13.0-17.5) gm/dL Hct 21.9 L (39.0-53.0) % RDW 16.3 H (11.5-15.5) % Plt Count 127 L (150-450) k/uL Neutrophils # 14.0 H (1.3-7.7) k/uL Lymphocytes # 0.5 L (1.0-4.8) k/uL ABG pCO2 (35-45) mmHg ABG pO2 (83-108) mmHg ABG O2 Saturation (94-97) % Sodium 130 L (137-145) mmol/L Chloride 97 L (98-107) mmol/L Carbon Dioxide 19 L (22-30) mmol/L BUN 106 H* (9-20) mg/dL Creatinine 3.89 H (0.66-1.25) mg/dL Glucose 170 H (74-99) mg/dL POC Glucose (mg/dL) 201 H (70-110) mg/dL Calcium 7.6 L (8.4-10.2) mg/dL 05/04/24 05/04/24 05/04/24 Range/Units 06:27 08:11 12:01 WBC (3.8-10.6) k/uL RBC (4.30-5.90) m/uL Hgb (13.0-17.5) gm/dL Hct (39.0-53.0) % RDW (11.5-15.5) % Plt Count (150-450) k/uL Neutrophils # (1.3-7.7) k/uL Lymphocytes # (1.0-4.8) k/uL ABG pCO2 34 L (35-45) mmHg ABG pO2 124 H (83-108) mmHg ABG O2 Saturation 98.8 H (94-97) % Sodium (137-145) mmol/L Chloride (98-107) mmol/L Carbon Dioxide (22-30) mmol/L BUN (9-20) mg/dL Creatinine (0.66-1.25) mg/dL Glucose (74-99) mg/dL POC Glucose (mg/dL) 223 H 222 H (70-110) mg/dL Calcium (8.4-10.2) mg/dL Assessment and Plan Assessment: * Status postcardiac arrest 07/22/2023 with downtime of about 7 minutes. Patient also had hypoglycemia at that time with blood sugar 25. Patient probably has combination of anoxic encephalopathy, with some component of metabolic encephalopathy, and with the factors mentioned below. * Focal seizures noted clinically. 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 This is likely related to severe underlying anoxic encephalopathy. Resolved after adding Vimpat. * Acute ischemic stroke, large size involving watershed territory between the left MCA/NICO. There is also evidence of a small area of acute infarction in the right anterior frontal lobe between the right NICO/MCA territory. * Multiple hepatic lesions, possible metastatic cancer. Unknown primary yet. Status post liver biopsy. * Acute hypoxic respiratory failure, on mechanical ventilator. * Hyponatremia * Hyperkalemia * Acute on chronic chronic renal failure * Elevated liver enzymes * Anemia * Elevated troponin. * History of kidney and liver transplant in 2016 * History of polysubstance abuse, hepatitis C, treated. * Hypertension * Hyperlipidemia * History of gout Plan: * Patient seizures have stopped with current regimen of Keppra and Vimpat. No seizures noticed spontaneously, or with stimulus evoked. * Patient continues to be comatose, day 7 postcardiac arrest, with GCS of 3. * Repeat EEG 07/28/2023 was severely abnormal due to presence of generalized, 1 Hz sharp appearing waves seen in bihemispheric region, which is slightly more focal towards the right parietal region. 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 After patient received 2 mg Ativan IV, several minutes later, these epileptiform activity was replaced by diffuse slowing in 2 to 3 Hz delta with some.'s of suppression. Clinical correlation and follow-up is recommended as clinically indicated. * Patient already on Keppra 500 mg twice daily. Patient now started on Vimpat 100 mg twice daily as well. Seizures resolved. * Initial EEG performed 07/26/2023 was severely abnormal due to presence of periods of generalized suppression, intermixed with some low amplitude 2 to 3 Hz delta slowing suggestive of generalized cerebral dysfunction as can be seen with anoxic, or severe toxic metabolic encephalopathy or related to diffuse structural brain abnormality. Clinical correlation is recommended. No epileptiform activity was seen. No electrographic seizure was recorded. * CT scan of the head revealed a very large watershed ischemic stroke between left NICO and left MCA territory involving the frontal, parietal and occipital lobes. No mass effect or midline shift. No hemorrhage. * Patient is [id number], therefore the major portion of stroke is involving the dominant hemisphere. This may have significant implications with right hemiparesis and probable significant speech, and memory deficits. * Based upon this large bilateral stroke (L>>R), recent cardiac arrest, nonconvulsive status epilepticus, and possible suspected metastatic cancer, the prognosis remains very poor for meaningful recovery. * Discussed with patient's regarding the result of CT head, which also shows an additional small area of ischemic infarction involving the right frontal region between NICO/MCA territory. Overall this watershed territory infarct could be related to hypoperfusion during cardiac arrest. * Consider repeating CT head. * Patient had undergone ultrasound-guided liver biopsy today. Being worked up for possible metastatic cancer. Path report pending. * Other medical management as per IM and other specialties involved. * Carotid Doppler revealed mild to moderate intimal thickening and plaque in the right carotid bifurcation resulting in the moderate 50 to 69% stenosis based on peak systolic velocity. No significant interval change compared to previous. Right vertebral artery not seen. Unable to scan the left side because of central line in left IJ vein. * Start aspirin 325 mg daily, but patient is allergic to nonsteroidals. * Discussed with family members.
--- NOTE | 2023-07-30 09:55 | P.PN ---
Subjective Patient is seen in follow-up for acute kidney injury on chronic kidney disease. Renal function continues to worsen. Urine output ~30 cc an hour. Receiving tube feeds. Also received a unit of blood with improvement in hemoglobin. Intubated. Vital signs are stable. General: Resting in bed. HEENT: Intubated. LUNGS: Scattered rhonchi. HEART: Rate and Rhythm are regular. ABDOMEN: Obese. EXTREMITITES: 1+ edema. Penile edema noted. Objective - Vital Signs Vital signs: Vital Signs Temp 98.6 F 07/30/23 04:00 Pulse 60 07/30/23 09:25 Resp 20 07/30/23 09:00 BP 136/66 07/30/23 09:00 Pulse Ox 100 07/30/23 09:00 FiO2 40 07/30/23 09:22 Intake & Output 07/29/23 07/30/23 07/30/23 18:59 06:59 18:59 Intake Total 949 1324.904 196.996 Output Total 660 450 65 Balance 289 874.904 131.996 Weight 99.9 kg Intake: IV 326 376 96 0.9 240 240 40 Cefepime 1 gm In Sodium 50 100 50 Chloride 0.9% 50 ml @ 12. 5 mls/hr IVPB Q12HR MARCEL Rx#:[id number] pressure bag 36 36 6 Intake, IV Titration 15.904 29.996 Amount propofoL 1,000 mg In 15.904 29.996 Empty Bag 1 bag @ 15 MCG/ KG/MIN 7.267 mls/hr IV . [id number] MARCEL Rx#:[id number] Tube Feeding 533 533 41 Blood Product 310 Rc As-1 Unit 310 [id number] Other 90 90 30 Output: Urine 660 450 65 Other: Voiding Method Indwelling Catheter Indwelling Catheter # Bowel Movements 1 ABP, PAP, CO, CI - Last Documented Arterial Blood Pressure 137/52 - Labs CBC & Chem 7: 07/30/23 04:50 07/30/23 04:50 Labs: Abnormal Lab Results - Last 24 Hours (Table) 07/26/23 07/29/23 07/29/23 Range/Units 11:14 12:01 13:29 WBC (3.8-10.6) k/uL RBC (4.30-5.90) m/uL Hgb (13.0-17.5) gm/dL Hct (39.0-53.0) % RDW (11.5-15.5) % Plt Count (150-450) k/uL ABG pO2 (83-108) mmHg ABG O2 Saturation (94-97) % Sodium (137-145) mmol/L Carbon Dioxide (22-30) mmol/L BUN (9-20) mg/dL Creatinine (0.66-1.25) mg/dL Glucose (74-99) mg/dL POC Glucose (mg/dL) 222 H 185 H (70-110) mg/dL Calcium (8.4-10.2) mg/dL AST (17-59) U/L ALT (4-49) U/L Crossmatch See Detail 07/29/23 07/29/23 07/29/23 Range/Units 17:05 19:59 20:26 WBC 16.6 H (3.8-10.6) k/uL RBC 2.34 L (4.30-5.90) m/uL Hgb 6.7 L* (13.0-17.5) gm/dL Hct 21.6 L (39.0-53.0) % RDW 15.8 H (11.5-15.5) % Plt Count 129 L (150-450) k/uL ABG pO2 (83-108) mmHg ABG O2 Saturation (94-97) % Sodium (137-145) mmol/L Carbon Dioxide (22-30) mmol/L BUN (9-20) mg/dL Creatinine (0.66-1.25) mg/dL Glucose (74-99) mg/dL POC Glucose (mg/dL) 180 H 165 H (70-110) mg/dL Calcium (8.4-10.2) mg/dL AST (17-59) U/L ALT (4-49) U/L Crossmatch 07/29/23 07/30/23 07/30/23 Range/Units 23:42 04:01 04:50 WBC 16.4 H (3.8-10.6) k/uL RBC 2.70 L (4.30-5.90) m/uL Hgb 8.1 L (13.0-17.5) gm/dL Hct 24.7 L (39.0-53.0) % RDW 15.8 H (11.5-15.5) % Plt Count 133 L (150-450) k/uL ABG pO2 (83-108) mmHg ABG O2 Saturation (94-97) % Sodium (137-145) mmol/L Carbon Dioxide (22-30) mmol/L BUN (9-20) mg/dL Creatinine (0.66-1.25) mg/dL Glucose (74-99) mg/dL POC Glucose (mg/dL) 154 H 156 H (70-110) mg/dL Calcium (8.4-10.2) mg/dL AST (17-59) U/L ALT (4-49) U/L Crossmatch 07/30/23 07/30/23 07/30/23 Range/Units 04:50 04:50 05:51 WBC (3.8-10.6) k/uL RBC (4.30-5.90) m/uL Hgb (13.0-17.5) gm/dL Hct (39.0-53.0) % RDW (11.5-15.5) % Plt Count (150-450) k/uL ABG pO2 119 H (83-108) mmHg ABG O2 Saturation 98.2 H (94-97) % Sodium 131 L (137-145) mmol/L Carbon Dioxide 19 L (22-30) mmol/L BUN 127 H* (9-20) mg/dL Creatinine 4.10 H (0.66-1.25) mg/dL Glucose 171 H (74-99) mg/dL POC Glucose (mg/dL) (70-110) mg/dL Calcium 7.7 L (8.4-10.2) mg/dL AST 109 H (17-59) U/L ALT 129 H (4-49) U/L Crossmatch 07/30/23 07/30/23 Range/Units 06:16 08:53 WBC (3.8-10.6) k/uL RBC (4.30-5.90) m/uL Hgb (13.0-17.5) gm/dL Hct (39.0-53.0) % RDW (11.5-15.5) % Plt Count (150-450) k/uL ABG pO2 (83-108) mmHg ABG O2 Saturation (94-97) % Sodium (137-145) mmol/L Carbon Dioxide (22-30) mmol/L BUN (9-20) mg/dL Creatinine (0.66-1.25) mg/dL Glucose (74-99) mg/dL POC Glucose (mg/dL) 216 H 218 H (70-110) mg/dL Calcium (8.4-10.2) mg/dL AST (17-59) U/L ALT (4-49) U/L Crossmatch Assessment and Plan Plan: Assessment: 1. Status post liver and kidney transplant in 2016 performed at [facility]. Currently on IV steroids. 2. Acute kidney injury secondary to ATN secondary to cardiac arrest. Renal function worsening. Creatinine 4.1 today. Elevated BUN due to acute kidney injury, IV steroids as well as component of GI bleed. 3. Chronic kidney disease stage IIIa with baseline creatinine 1.4-1.6 secondary to solitary kidney and long-term CNI use. 4. Bradycardia with PEA arrest. Dopamine discontinued. 5. Acute left parietal and occipital CVA. 6. Multiple liver lesions noted concerning for malignancy. Biopsy results pending. 7. Hyponatremia secondary to acute kidney injury. Hypervolemic. 8. Hyperkalemia secondary to acute kidney injury, acidosis and Prograf. Better. 9. Metabolic acidosis secondary to acute kidney injury and IV fluids. On oral bicarb. Plan: Lasix 80 mg IV once today. Maintain tube feeds. Maintain IV steroids. Decrease dose to 50 mg every 8 hours. CellCept and Prograf have been held. Prograf level 14.7 dated July 24, 2023. Prograf level 5.0 dated July 28, 2023. Resume Prograf 2 mg twice daily. Avoid nephrotoxins. Prognosis guarded. Continue to monitor renal function and urine output. Preserved EF noted on echo. Comfort measures being considered.
--- NOTE | 2023-07-30 11:25 | P.PN ---
Subjective Progress Note Date: 07/30/23 Pts is bradycardic again today, remains in 1st degree AV block. Pending [facility] discussion today. General: intubated, sedated HEENT: normocephalic, atraumatic, no tracheal deviation Respiratory: symmetric chest rise, no cyanosis, ventilator dependent CVS: perfusing all extremities, no distal gangrene, bilateral pitting edema GI: soft, ND : no SPT, no CVAT, soriano is present Neuro: sedated Hospital Course: Patient is a 59-year-old male with BPH, carotid stenosis, cirrhosis, diabetes, end-stage renal disease status post renal and liver transplant no longer requiring hemodialysis, glaucoma, hypertension, and multiple other comorbid conditions who presented to the emergency department with complaints of shortness of breath. Patient had recently been at an outside hospital for abdominal and back pain they are workup revealed lesions in his liver, kidney, and lung and he was requiring Dilaudid [id number] for pain. He was discharged on a fentanyl patch with a PET scan scheduled for July with Dr. Wise. In the emergency department here he was noted to have a white blood cell count of 16, sodium 124, BUN 30, creatinine 1.76 (baseline creatinine 2), AST 241, ALT 153, alkaline phosphatase 669, and a D-dimer of 18.53. Patient was admitted with concerns for possible pulmonary embolism and he was started on Lovenox. He subsequently underwent a ventilation/perfusion scan which demonstrated low probability for pulmonary embolism. He underwent echocardiogr am which demonstrated ejection fraction of 55 to 60% with mild aortic stenosis. Renal and bladder ultrasound demonstrated hepatic metastatic disease with transplanted kidneys and atrophic alturas kidneys. Oncology was consulted. They recommended continuing pain control considering additional imaging and IR consultation. Patient was noted to have change in mentation and therefore underwent a CT of the head which demonstrated no acute intracranial process. He then became hypoxic requiring high flow nasal cannula and ultimately BiPAP. Pulmonary was consulted and added bronchodilators. On the morning of 07/21 patient was undergoing a BiPAP weaning trial when he lost pulses and CPR was initiated. He had ROSC after 2 rounds of epinephrine however his mental status did not improve and he was subsequently intubated and transferred to the ICU. He required norepinephrine for less than 24 hours. Infectious disease was consulted he recommended adding cefepime while awaiting cultures to finalize. Nephrology was consulted who recommended holding CellCept and continuing tacrolimus and prednisone. His Tacro was then held. Patient became bradycardiac overnight on 07/24 and cardio was consulted and the patient was started on a dobutamine gtt. Patient developed seizures early this morning and was given Ativan from critical care with resolution of seizure-like activity. Neurology was consulted. CT brain was ordered and patient was loaded with Keppra. He underwent liver biopsy on 07/26/23 Assessment/Plan: S/P Cardiac arrest Multiple lung and liver nodules, probable malignancy Intractable pain likely related to malignancy Acute hypoxic respiratory failure Transaminitis suspect secondary to liver lesions versus hepatitis C - s/p liver biopsy, pathology pending, discussed with Dr. Dobbs 07/27, this is likely neoplastic - Await further oncology recs - Await further ID recs - Cefepime 2 g IV piggyback twice daily D # 9, lamivudine 100mg daily - Solucortef 100 mg IVP q 8 hours - Hold Lipitor due to elevated liver enzymes - Fentanyl 75 mcg patch has been continued. - DuoNebs every 4 hours and as needed Seizures Right Frontal and Left parietal and occipital lobe likely represent watershed infarcts, discussed these findings with Neurology Acute encephalopathy, possible anoxic -Neurology consultation appreciated -Keppra 500 mg every 12 hours, lacosamide 100mg IV BID Episodes of complete heart block with unclear etiology NSTEMI - Off coreg - Cardiology recs appreciated: Continue supportive care and stop IV dopamine - repeat echo with EF 65-60% Chronic kidney disease stage III status post renal and liver transplant Hyponatremia, possible SIADH Metabolic acidosis Hyperkalemia - Nephrology note reviewed: maintain tube feeds, maintain hydrocortisone, continue to hold tacro -IVF NS 20 cc/hr - Continue to hold tacrolimus, cellcept, and prednisone 2 mg daily - Continue to follow renal function Acute Blood Loss superimposed on normocytic anemia - s/p 1U PRBC given on 07/28, hgb now 8.1 Diabetes mellitus type 2 with episodes of hypoglycemia - NovoLog 2 units every 6 hours in addition to sliding scale every 6 hours - Maintain levemir to 28 units once daily - Follow blood sugars Chronic conditions BPH Carotid stenosis Hepatitis C Hypertension Dyslipidemia Osteoarthritis Vitamin D deficiency Pulmonary embolism ruled out Poor over all prognosis DVT prophylaxis: Lovenox Anticipated discharge date: Pending Clinical Course Anticipated discharge place: Pending Clinical Course This dictation was prepared using [employer] voice recognition software. Though every attempt is made to correct errors during dictation some may still exist. Objective - Vital Signs Vital signs: Vital Signs Temp 98.6 F 07/30/23 04:00 Pulse 60 07/30/23 09:25 Resp 20 07/30/23 09:00 BP 136/66 07/30/23 09:00 Pulse Ox 100 07/30/23 09:00 FiO2 40 07/30/23 09:22 Intake & Output 07/29/23 07/30/23 07/30/23 18:59 06:59 18:59 Intake Total 949 1324.904 196.996 Output Total 660 450 65 Balance 289 874.904 131.996 Weight 99.9 kg Intake: IV 326 376 96 0.9 240 240 40 Cefepime 1 gm In Sodium 50 100 50 Chloride 0.9% 50 ml @ 12. 5 mls/hr IVPB Q12HR MARCEL Rx#:[id number] pressure bag 36 36 6 Intake, IV Titration 15.904 29.996 Amount propofoL 1,000 mg In 15.904 29.996 Empty Bag 1 bag @ 15 MCG/ KG/MIN 7.267 mls/hr IV . [id number] MARCEL Rx#:[id number] Tube Feeding 533 533 41 Blood Product 310 Rc As-1 Unit 310 [id number] Other 90 90 30 Output: Urine 660 450 65 Other: Voiding Method Indwelling Catheter Indwelling Catheter # Bowel Movements 1 ABP, PAP, CO, CI - Last Documented Arterial Blood Pressure 137/52 - Labs CBC & Chem 7: 07/30/23 04:50 07/30/23 04:50 Labs: Abnormal Lab Results - Last 24 Hours (Table) 07/26/23 07/29/23 07/29/23 Range/Units 11:14 12:01 13:29 WBC (3.8-10.6) k/uL RBC (4.30-5.90) m/uL Hgb (13.0-17.5) gm/dL Hct (39.0-53.0) % RDW (11.5-15.5) % Plt Count (150-450) k/uL ABG pO2 (83-108) mmHg ABG O2 Saturation (94-97) % Sodium (137-145) mmol/L Carbon Dioxide (22-30) mmol/L BUN (9-20) mg/dL Creatinine (0.66-1.25) mg/dL Glucose (74-99) mg/dL POC Glucose (mg/dL) 222 H 185 H (70-110) mg/dL Calcium (8.4-10.2) mg/dL AST (17-59) U/L ALT (4-49) U/L Crossmatch See Detail 07/29/23 07/29/23 07/29/23 Range/Units 17:05 19:59 20:26 WBC 16.6 H (3.8-10.6) k/uL RBC 2.34 L (4.30-5.90) m/uL Hgb 6.7 L* (13.0-17.5) gm/dL Hct 21.6 L (39.0-53.0) % RDW 15.8 H (11.5-15.5) % Plt Count 129 L (150-450) k/uL ABG pO2 (83-108) mmHg ABG O2 Saturation (94-97) % Sodium (137-145) mmol/L Carbon Dioxide (22-30) mmol/L BUN (9-20) mg/dL Creatinine (0.66-1.25) mg/dL Glucose (74-99) mg/dL POC Glucose (mg/dL) 180 H 165 H (70-110) mg/dL Calcium (8.4-10.2) mg/dL AST (17-59) U/L ALT (4-49) U/L Crossmatch 07/29/23 07/30/23 07/30/23 Range/Units 23:42 04:01 04:50 WBC 16.4 H (3.8-10.6) k/uL RBC 2.70 L (4.30-5.90) m/uL Hgb 8.1 L (13.0-17.5) gm/dL Hct 24.7 L (39.0-53.0) % RDW 15.8 H (11.5-15.5) % Plt Count 133 L (150-450) k/uL ABG pO2 (83-108) mmHg ABG O2 Saturation (94-97) % Sodium (137-145) mmol/L Carbon Dioxide (22-30) mmol/L BUN (9-20) mg/dL Creatinine (0.66-1.25) mg/dL Glucose (74-99) mg/dL POC Glucose (mg/dL) 154 H 156 H (70-110) mg/dL Calcium (8.4-10.2) mg/dL AST (17-59) U/L ALT (4-49) U/L Crossmatch 07/30/23 07/30/23 07/30/23 Range/Units 04:50 04:50 05:51 WBC (3.8-10.6) k/uL RBC (4.30-5.90) m/uL Hgb (13.0-17.5) gm/dL Hct (39.0-53.0) % RDW (11.5-15.5) % Plt Count (150-450) k/uL ABG pO2 119 H (83-108) mmHg ABG O2 Saturation 98.2 H (94-97) % Sodium 131 L (137-145) mmol/L Carbon Dioxide 19 L (22-30) mmol/L BUN 127 H* (9-20) mg/dL Creatinine 4.10 H (0.66-1.25) mg/dL Glucose 171 H (74-99) mg/dL POC Glucose (mg/dL) (70-110) mg/dL Calcium 7.7 L (8.4-10.2) mg/dL AST 109 H (17-59) U/L ALT 129 H (4-49) U/L Crossmatch 07/30/23 07/30/23 Range/Units 06:16 08:53 WBC (3.8-10.6) k/uL RBC (4.30-5.90) m/uL Hgb (13.0-17.5) gm/dL Hct (39.0-53.0) % RDW (11.5-15.5) % Plt Count (150-450) k/uL ABG pO2 (83-108) mmHg ABG O2 Saturation (94-97) % Sodium (137-145) mmol/L Carbon Dioxide (22-30) mmol/L BUN (9-20) mg/dL Creatinine (0.66-1.25) mg/dL Glucose (74-99) mg/dL POC Glucose (mg/dL) 216 H 218 H (70-110) mg/dL Calcium (8.4-10.2) mg/dL AST (17-59) U/L ALT (4-49) U/L Crossmatch
--- NOTE | 2023-07-30 11:43 | P.PN ---
Subjective Progress Note Date: 07/30/23 72-year-old black male, who [facility], is seen in the emergency department, on July 18, for shortness of breath. The patient apparently has been having shortness of breath, since being discharged from [facility] [place]. Recently, the patient was started on a fentanyl patch for back pain, but denies all other medications. He apparently was admitted at the other hospital, for total of 4 days according to his , and was found to have some lesions on his liver and lung. The patient is apparently awaiting an outpatient PET scan. He did see one of the cancer doctors at the other facility. Currently, the patient is seen in ER room 28. The patient is currently on BiPAP, with settings of 12/6 and 28%. According to his he has a history of liver and kidney transplantation. He is getting saline at 75 cc an hour. He apparently had a chest x-ray that was interpreted as normal, and a VQ scan that was interpreted as being very low probability for pulmonary embolism. He does not use oxygen at home. He quit smoking 43 years ago. He had a blood gas showing a pO2 of 124, pCO2 of 35, and a pH of 7.30. This is consistent with metabolic acidosis. His other medical history includes gastroesophageal reflux disease, hypertension, hyperlipidemia, liver kidney transplant at [facility] in 2016, diabetes, and gout. The patient is a former smoker, having quit some 43 years ago as mentioned above. Current labs include a white count of 16.2, hemoglobin 8.4, hematocrit 27.6, and a platelet count of 268,000. Sodium 126, potassium 5.2, chlorides 102, CO2 18, BUN 35, and creatinine 1.63. Calcium is 8.5. Glucose is 161. The patient has a nonanion gap metabolic acidosis, likely from his renal insufficiency/failure. The patient has a couple different chest x- rays, which did not show acute cardiopulmonary disease. Progress note dated July 22, 2023. The patient was seen yesterday in consultation, when he was in the emergency department. The patient was admitted to the floor. Sometime early this morning, the patient developed bradycardia, and pulseless electrical activity. At that time, the patient's blood glucose was only 25. The patient was intubated, for respiratory failure, transferred to the intensive care unit. He is currently in the ICU, on the ventilator. Settings include volume assist- control, rate 20, tidal volume 450, FiO2 50%, PEEP of 5. Blood gases show pO2 of 243, pCO2 42, and a pH of 7.25. The patient is getting dextrose with half- normal saline at 75 cc an hour, propofol at 50 mcg/kg/min. He remains on Levaquin. His procalcitonin level was elevated at 4.10. Current labs include a white count 19.4, hemoglobin 8.2, hematocrit 27.3, and a platelet count of 2 62,000. Sodium 131, potassium 5.2, chlorides 104, CO2 17, anion gap 10, BUN 31, and creatinine 1.46. Glucose is 120. AST is 138. ALT is 87. Alkaline phosphatase is 620. Procalcitonin level was 4.10. He tested negative for influenza, RSV, and coronavirus. Chest x-ray shows the tip of the central venous catheter, at the junction of the superior vena cava and right atrium. Chest x-ray also suggest some pulmonary vascular congestion. Progress note dated July 23, 2023. 72-year-old black male, seen in follow-up, room 259. The patient remains on the mechanical ventilator. Current vent settings include volume assist-control, rate 20, tidal volume 450, FiO2 50%. PEEP of 5. Blood gases show pO2 176, pCO2 33, pH is 7.31. The patient is getting saline at 75 cc an hour, propofol at 40 mcg/kg/min. Currently, norepinephrine is on hold. He is getting vital AF at 30, with a goal of 42. He continues on cefepime. We did attempt a daily interruption of sedation, but he did poorly and, we could not do a spontaneous breathing trial. He was placed back on the ventilator. Current labs include a white count of 13.1, hemoglobin 7.9, hematocrit 25.4, and a normal platelet count. Sodium 127, potassium 5, chlorides 106, CO2 15, BUN 32, creatinine 1.32. Glucose is 185. Calcium is 8. Chest x-ray shows a properly positioned endotracheal tube. In addition, there may be an infiltrate in the right lung, with volume loss in the right lung, and a small right-sided pleural effusion. On today's evaluation of 07/24/2023, the patient is being seen for a follow-up. Patient cardiac arrest and the patient remains intubated on mechanical ventilator. Noted the patient was intubated on 07/22/2023 following cardiac arrest that followed an episode of bradycardia followed by pulseless electrical activity. During that time, the patient was also hypoglycemic. Noted the patient is a very complicated history of liver and kidney transplant and the patient has undergone his transportation back in [address] [facility]. The patient has been maintained on immunosuppressive agents with a combination of CellCept and Prograf and low-dose prednisone on an outpatient basis. Note that the CellCept is currently on hold and the patient remains on a combination of Prograf and low-dose prednisone. On a separate note, a CAT scan of the chest that was done also on this patient at [facility] [place] showed extensive bilateral pulmonary nodules which raise the possibility of underlying metastatic disease/infection/post transplant lymphoproliferative disorder. If final diagnosis not been made at this point in time. In fact, the patient is currently on a mechanical ventilator, and is afebrile. He is on assist-control mode of mechanical ventilation at rate of 20, tidal volume of 450, FiO2 is at 40% with a PEEP of 5. The blood gas showing a pH of 7.3 with a pCO2 of 30 and pO2 of 146. Peak airway pressure is around 15. IV fluids are currently at KVO. The patient is currently on vital AF at rate of 42 to cc an hour for enteral feeding and nutritional support. He is currently on no pressors. The WBC count of 15.2 with a hemoglobin of 7.7 and a platelet count of 165. The serum bicarb is at 12 with a sodium level of 126 and a potassium level of 5.2. BUN is at 42 with a creatinine of 1.8. LFTs remain abnormal with an AST of 58, ALT of 52 and an alkaline phosphatase of 596. Serum protein is at 2.0. The blood cultures are still pending, sputum culture also pending. The patient is currently hemodynamically stable on no pressors. He is known to have hypertension hyperlipidemia and diabetes mellitus type 2 and history of gout. Has echocardiogram that was done on 07/20/2023 showed preserved LV function without any significant valvular abnormalities and mild pulmonary hypertension was also seen. CAT scan of the brain done postarrest showed no acute intracranial process. Ultrasound of the abdomen and the bladder showed heterogeneous liver lesions the significance of which was not known. Possibility of hepatic metastasis cannot be completely ruled out. Postoperative dilatation of the common bile duct was seen and the transplanted kidney was noted. The patient's original kidneys are quite atrophic at this point in time. His procalcitonin level was 4.0 at the time of admission. On today's evaluation of 07/25/2023, the patient is being seen for a follow-up. Patient remains sedated on propofol which is running at 30 mcg/kg/min. Events from yesterday evening was noted. The patient had high degree AV block and she had Mobitz type II and episodes of third-degree AV block. Based on that, cardiology has been involved and the patient was started on dopamine at 5 mcg/kg/min. His current rhythm is sinus bradycardia. Note that the patient's echocardiogram showed a preserved LV function. Troponins will be rechecked and jacket changer on the case for now. He remains intubated on mechanical ventilator. He is calm and comfortable. He is on assist-control mode at rate of 20, tidal volume of 450, FiO2 of 40% with a PEEP of 5. Blood gas showed a pH of 7.33 with a pCO2 of 33 and pO2 of 75. The chest x-ray from today shows no significant interval change and some atelectasis and small effusion in the right lung base. Orotracheal tube remains in a good location. CAT scan of the abdomen and pelvis was also done yesterday and it showed mid to distal small bowel loops being compressed. Mild partial small bowel obstruction/ileus cannot be completely excluded. The patient has extensive metastases to his liver along with ascites within the pelvis. There is also a loculated pleural effusion in the right lung base. Empyema is felt to be less likely at this point in time based on the clinical presentation. The patient is currently has a white cell count of 16.2 with a hemoglobin 7.4 and a platelet count of 136. The sodium is at 126, potassium is at 4.9 and serum bicarb is at 15 with a BUN of 46 and a creatinine of 2.35. LFTs show an AST of 145, ALT of 65, alkaline phosphatase of 527, and total protein of 4.3 with an albumin of 1.9. The Prograf level was 14.7. Nephrology on the case. Cardiology has also been consulted regarding the high degree AV block. Meanwhile, the patient is taking enteral feeding for nu tritional support and the patient is on vital AF At the rate of 44 cc an hour. On today's evaluation of 07/26/2023, the patient is being seen for a follow-up. The patient this morning is having jerking movement in his right upper extremity. This is very automatic and repetitive. Seizure was considered. Noted the patient is still on propofol running at 20 mcg/kg/min. Cardiac rhythm is first-degree AV block without any significant bradycardia arrhythmias noted yesterday the patient remains on dopamine at 5 mcg/kg/min. The patient is also on a bicarb infusion with a total of 2 ampoules of sodium bicarb and half-normal saline at rate of 100 cc an hour. He remains on mechanical ventilator settings of 20, tidal volume of 450, FiO2 40% with a PEEP of 5. Blood gas showed pH of 7.37 with a pCO2 of 79 and pO2 of 86. Initial CAT scan of the brain was negative. Repeat CAT scan of the brain will be needed specially there is underlying suspected seizure activity. The blood work from today shows a sodium level of 129 and a potassium level of 6.1. The patient was treated accordingly with Lokelma and the patient was also given D50 insulin and she is already on a bicarb infusion. She was also given calcium. Repeat potassium was down to 5.6. At the same time, the patient's BUN is at 63 with a creatinine of 2.81. Bicarb level is at 22. Blood sugars at 245 and the patient on Levemir insulin 13 units along with a sliding scale coverage. White cell count of 24.5 with a hemoglobin of 7.1. Repeat chest x-ray was done today and the patient was found to have the ET tube being around 3 cm above the divine. Smaller lung volumes and generalized haziness along with some atelectatic changes. All of the lines are in good location. The patient is afebrile at this point in time. On 07/28/2023, the patient is being seen for a follow-up. Unresponsive despite being off propofol and fentanyl for approximately 48 hours. Grimaces only to deep painful stimulation. 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 He was also having episodes of seizure activity, focal seizure involving the left upper extremity. The patient was given Ativan and subsequently patient was started on Vimpat 100 mg IV every 12 hours. The patient is also on Keppra 5 mg every 12 hours. No visible seizures. EEG was done today. Meanwhile, we are still awaiting the biopsy results from the liver. The CEA level was very much elevated and so was the CA 19-9 level. The patient remains intubated on mechanical ventilator. The patient is in a first-degree AV block. Dopamine has been discontinued. No pressors at this point in time. He remains on assist-control mode rate of 20, tidal volume of 400, FiO2 40% with a PEEP of 5. Blood gas showed pH of 7.37 with a pCO2 of 40 and pO2 of 100. The chest x-ray finding shows a small right-sided pleural effusion and scattered bilateral pulmonary nodules. Sodium was at 130 with a potassium level of 5, bicarb is at 20 with a BUN of 88 and a creatinine of 3.18. There is close of 19 with a hemoglobin of 7.2 and a platelet count of 119. Remains on IV cefepime as an empiric antibiotic coverage. The patient is receiving enteral feeding for nutritional support with Nepro at rate of 37 cc an hour. The patient on Lovenox for DVT prophylaxis. No other significant events otherwise for now. Had a nice discussion with the family and discussed the poor prognosis and outcome of this patient especially with the concern of malignancy. On 07/29/2023, seen the patient for a follow-up. Essentially unchanged. Barely grimaces to painful stimulation. Otherwise he is off sedation and the patient is completely unresponsive and does not follow any commands and he does not show any level of alertness at this point in time. No seizure activity has been noted and the patient remains on a combination of Keppra and Vimpat. The preliminary pathology from the liver biopsy is consistent with carcinoma which could be related to either lung or GI tract. Final pathology results are not available at this point in time. Oncology is on the case. As mentioned, the patient had a significant elevated CEA and CA 19-9 levels. This morning, the pa tient is off sedation. The patient is on assist-control mode of mechanical ventilation at a rate of 20, tidal volume of 450, FiO2 40% with a PEEP of 5. pH is at 7.41 with a pCO2 of 34 and pO2 of 124. The patient's renal function is present constantly getting worse. BUN is at 116 with a creatinine of 0.89 and a sodium levels at 130 with a potassium level of 4.6. Serum bicarb is at 19. Hemoglobin is down to 6.9 and there is no evidence of any acute bleeding. WBC count is at 15.2 with a platelet count of 127. Blood sugars at 222. The patient continues to receive enteral feeding with Nepro at rate of 41 cc an hour. IV fluids have informed normal citrate of 20 and a fluid balance is +2.2 L over the past 24 hours. Chest x-ray is essentially unchanged and the patient's ET tube was in adequate location. It is around 3 cm above the divine and the patient also has a small right-sided pleural effusion and scattered bilateral pulmonary nodules. 07/30/2023, no change in the patient's condition. Overnight, the patient became asynchronous with the mechanical ventilator and according to the patient was placed on propofol at 30 mcg/kg/min. He remains unresponsive. Progressive worsening renal function has been noted. The patient is currently on KVO IV fluids. Remains on the mechanical ventilator, assist-control mode with rate of 20, tidal volume of 450, FiO2 of 40% with a PEEP of 5. Blood gas showed pH of 7.37 with a pCO2 of 36 and pO2 of 119. No chest x-ray is available from today.Chest x-ray was noted. Hemoglobin is dropped also under 7 and the patient received a unit of packed RBC and hemoglobin is up to 8.1. White cell count is 16, sodium level is at 131 with a potassium level of 4.4, BUN is 127 with a creatinine of 4.1. Awaiting final pathology from the liver biopsy. High suspicion for carcinoma either of a GI source or lung. Favor the first. Remains on enteral feeding for nutritional support. He is currently on Nepro at rate of 41 cc an hour. Tolerating enteral feeding. No hypoglycemia. Objective - Vital Signs Vital signs: Vital Signs Temp 98.6 F 07/30/23 04:00 Pulse 60 07/30/23 09:25 Resp 20 07/30/23 09:00 BP 136/66 07/30/23 09:00 Pulse Ox 100 07/30/23 09:00 FiO2 40 07/30/23 09:22 Intake & Output 05/07/1807/30/23 07/30/23 18:59 06:59 18:59 Intake Total 949 1324.904 196.996 Output Total 660 450 65 Balance 289 874.904 131.996 Weight 99.9 kg Intake: IV 326 376 96 0.9 240 240 40 Cefepime 1 gm In Sodium 50 100 50 Chloride 0.9% 50 ml @ 12. 5 mls/hr IVPB Q12HR MARCEL Rx#:[id number] pressure bag 36 36 6 Intake, IV Titration 15.904 29.996 Amount propofoL 1,000 mg In 15.904 29.996 Empty Bag 1 bag @ 15 MCG/ KG/MIN 7.267 mls/hr IV . [id number] MARCEL Rx#:[id number] Tube Feeding 533 533 41 Blood Product 310 Rc As-1 Unit 310 [id number] Other 90 90 30 Output: Urine 660 450 65 Other: Voiding Method Indwelling Catheter Indwelling Catheter # Bowel Movements 1 ABP, PAP, CO, CI - Last Documented Arterial Blood Pressure 137/52 - Exam No acute distress, intubated, and patient remains unresponsive despite being off sedatives for the past 48 hours. No active seizures at this point in time. The patient is calm and comfortable and the patient is currently sedated on propofol . The orotracheal and orogastric tube are both in place. Head exam was generally normal. There was no scleral icterus or corneal arcus. Mucous membranes were moist. HEENT examination is grossly unremarkable. Neck supple. Full range of motion. No adenopathy thyromegaly or neck vein distention. Cardiovascular examination reveals regular rhythm rate. S1-S2 normal. No S3 or S4. No discernible murmur noted. Heart sounds are distant. Lungs reveal clear breath sounds. Breath sounds are equal bilaterally. No adventitious lung sounds including wheezes rhonchi or crackles. Abdomen soft bowel sounds are heard. No masses or tenderness. Extremities are intact. No cyanosis clubbing or edema. Skin is without rash or lesion. Neurologic examination cannot be assessed at this time. Patient is sedated and is calm and comfortable. No seizure activity has been noted. The patient is only grimacing to deep painful stimulation. Does not withdrawal. Sensorimotor function cannot be accurately assessed. However, no facial asymmetry. Pupils sluggishly reactive to light at 3 mm. No nystagmus. No preferential gaze. No Babinski. - Labs CBC & Chem 7: 07/30/23 04:50 07/30/23 04:50 Labs: Abnormal Lab Results - Last 24 Hours (Table) 07/26/23 07/29/23 07/29/23 Range/Units 11:14 12:01 13:29 WBC (3.8-10.6) k/uL RBC (4.30-5.90) m/uL Hgb (13.0-17.5) gm/dL Hct (39.0-53.0) % RDW (11.5-15.5) % Plt Count (150-450) k/uL ABG pO2 (83-108) mmHg ABG O2 Saturation (94-97) % Sodium (137-145) mmol/L Carbon Dioxide (22-30) mmol/L BUN (9-20) mg/dL Creatinine (0.66-1.25) mg/dL Glucose (74-99) mg/dL POC Glucose (mg/dL) 222 H 185 H (70-110) mg/dL Calcium (8.4-10.2) mg/dL AST (17-59) U/L ALT (4-49) U/L Crossmatch See Detail 07/29/23 07/29/23 07/29/23 Range/Units 17:05 19:59 20:26 WBC 16.6 H (3.8-10.6) k/uL RBC 2.34 L (4.30-5.90) m/uL Hgb 6.7 L* (13.0-17.5) gm/dL Hct 21.6 L (39.0-53.0) % RDW 15.8 H (11.5-15.5) % Plt Count 129 L (150-450) k/uL ABG pO2 (83-108) mmHg ABG O2 Saturation (94-97) % Sodium (137-145) mmol/L Carbon Dioxide (22-30) mmol/L BUN (9-20) mg/dL Creatinine (0.66-1.25) mg/dL Glucose (74-99) mg/dL POC Glucose (mg/dL) 180 H 165 H (70-110) mg/dL Calcium (8.4-10.2) mg/dL AST (17-59) U/L ALT (4-49) U/L Crossmatch 07/29/23 07/30/23 07/30/23 Range/Units 23:42 04:01 04:50 WBC 16.4 H (3.8-10.6) k/uL RBC 2.70 L (4.30-5.90) m/uL Hgb 8.1 L (13.0-17.5) gm/dL Hct 24.7 L (39.0-53.0) % RDW 15.8 H (11.5-15.5) % Plt Count 133 L (150-450) k/uL ABG pO2 (83-108) mmHg ABG O2 Saturation (94-97) % Sodium (137-145) mmol/L Carbon Dioxide (22-30) mmol/L BUN (9-20) mg/dL Creatinine (0.66-1.25) mg/dL Glucose (74-99) mg/dL POC Glucose (mg/dL) 154 H 156 H (70-110) mg/dL Calcium (8.4-10.2) mg/dL AST (17-59) U/L ALT (4-49) U/L Crossmatch 07/30/23 07/30/23 07/30/23 Range/Units 04:50 04:50 05:51 WBC (3.8-10.6) k/uL RBC (4.30-5.90) m/uL Hgb (13.0-17.5) gm/dL Hct (39.0-53.0) % RDW (11.5-15.5) % Plt Count (150-450) k/uL ABG pO2 119 H (83-108) mmHg ABG O2 Saturation 98.2 H (94-97) % Sodium 131 L (137-145) mmol/L Carbon Dioxide 19 L (22-30) mmol/L BUN 127 H* (9-20) mg/dL Creatinine 4.10 H (0.66-1.25) mg/dL Glucose 171 H (74-99) mg/dL POC Glucose (mg/dL) (70-110) mg/dL Calcium 7.7 L (8.4-10.2) mg/dL AST 109 H (17-59) U/L ALT 129 H (4-49) U/L Crossmatch 07/30/23 07/30/23 Range/Units 06:16 08:53 WBC (3.8-10.6) k/uL RBC (4.30-5.90) m/uL Hgb (13.0-17.5) gm/dL Hct (39.0-53.0) % RDW (11.5-15.5) % Plt Count (150-450) k/uL ABG pO2 (83-108) mmHg ABG O2 Saturation (94-97) % Sodium (137-145) mmol/L Carbon Dioxide (22-30) mmol/L BUN (9-20) mg/dL Creatinine (0.66-1.25) mg/dL Glucose (74-99) mg/dL POC Glucose (mg/dL) 216 H 218 H (70-110) mg/dL Calcium (8.4-10.2) mg/dL AST (17-59) U/L ALT (4-49) U/L Crossmatch Assessment and Plan Plan: Acute cardiac arrest with a normal echocardiogram and no ongoing cardiac arrhyt hmias. The patient had a episode of bradycardia followed by PEA. During the same time, the patient was hypoglycemic. This could have been a acute hypoglycemic event. Currently debated on mechanical ventilator and the patient is currently hemodynamically stable. The patient remains on mechanical ventilator, the patient remains unresponsive at this point in time. CAT scan of the brain was consistent with stroke as discussed earlier. The patient remains off sedatives. No neurologic signs of recovery at this point in time. Currently on propofol to maintain synchrony mechanical ventilator. He was off sedation for more than 48 hours he was placed on propofol overnight to maintain synchrony with the mechanical ventilator. Acute hypoxic respiratory failure postcardiac arrest and the patient is requiring intubation mechanical ventilation, Bilateral pulmonary nodules. CAT scan of the chest that was done in outside hospital showed multiple bilateral pulmonary nodules/micronodules and obviously differential diagnosis regarding this abnormality is quite extensive specially with his underlying immunosuppressive state. Possibilities include malignancy i as the patient also has extensive hepatic metastatic lesions and a biopsy of the liver was done. CEA and CA 19-9 levels were considerably elevated. Awaiting final pathologic findings from liver biopsy. Consider GI tract/pancreatic malignancy with metastasis to the liver and the lungs. Primary lung cancer is felt to be less likely at this point. Awaiting final pathology. High degree AV block, improved, current cardiac rhythm is first-degree AV block and the patient off dopamine for now History of kidney/liver transplantation, September 2015, at [facility]. Patient has been maintained on a combination of Prograf, CellCept and prednisone, based on worsening renal function, Prograf was discontinued and the patient was also taken off CellCept and the patient is currently on stress dose hydrocortisone. The renal function is progressively getting worse Chronic kidney disease, posttransplantation, with a component of an acute kidney injury with some mild hyperkalemia, treated and a potassium level is stable Multiple hepatic lesions, case was discussed with interventional radiology. Suspect pancreatic cancer. Fine-needle aspirate of the liver mass is to be done today. Elevated CEA and CA 19-9 level. Consider GI malignancy including possibility of pancreatic cancer. Diminished level of consciousness, unresponsive, off sedatives for the past 48 hours. CAT scan of the brain showed a infarct involving left occipital/parietal area. Seizure, likely focal seizures currently on a combination of Vimpat and Keppra. Right lower lobe pleural effusion Seizure with repetitive movement of the right upper extremity is suspected. Currently inactive Chronic elevation of the alkaline phosphatase and a component of transaminitis which is essentially improving at this point in time. Recent evaluation at [facility] [place], which revealed nodules on his liver and lung, rule out carcinoma. Awaiting fine-needle aspirate of the liver History of hypertension. History of hyperlipidemia. History of gastroesophageal reflux disease. History of diabetes, currently on Levemir insulin History of gout. Previous history of tobacco use. Enteral feeding for nutritional support Hyponatremia, stable Plan: Will try to wean off propofol again. CAT scan of the brain was noted and is consistent with infarct involving the left parietal and occipital lobes Abnormal EEG with seizure activity and the patient is currently on a combination of Vimpat and Keppra and neurology on the case Will continue ventilator support for now. No vent changes for today. Awaiting final pathology results from the liver biopsy high suspicion for malignancy as the patient has elevated CEA and CA 19-9 level Metastatic liver disease, awaiting fine-needle aspirate of the liver masses. Highly suspicious for GI source of malignancy that biliary tract or pancreas. This is a carcinoma. Lung cancer is felt to be less likely. Keep immunosuppressive medication on hold and the patient is currently on stress dose hydrocortisone. Monitor potassium levels Continue enteral feeding for nutritional support Continue monitoring mentation. Condition is critical. Condition is critical and will coordinate care with infectious disease and nephrology. Continue Lovenox for DVT prophylaxis Continue IV cefepime Consider comfort care/hospice specially if carcinoma/metastatic carcinoma is diagnosed in this patient and pathology confirmed. Condition is critical we will continue to follow make further recommendations based on the progress. This evaluation was done more than 40 minutes.
[2023-07-30 11:49] LABS: Glucose,Whole Blood 182 mg/dL (70-110)
[2023-07-30] MEDS: FUROSEMIDE 10 MG/ML 10 ML VIAL IV STA (11:55)
[2023-07-30] MEDS: TACROLIMUS 1 MG CAP PO SCH (11:55)
--- NOTE | 2023-07-30 11:56 | P.PN ---
Subjective Progress Note Date: 07/30/23 Patient was seen for follow-up. Family members were also present including his and daughter. Per nursing report, patient became agitated overnight, more restless, tachycardic. He was started on propofol at 20 mcg/kg/min. However this morning this has been weaned off. Patient has developed GI bleed, anemia. Patient is on cefepime. No seizure-like activity noted. Patient is having some involuntary leg movement, which could be inverted movement, or sometimes a jerk. However no facial twitching was noted. Uncertain if this movement is epileptic, or involuntary or something related to worsening CVA or mass effect. Objective - Vital Signs Vital signs: Vital Signs Temp 98.6 F 07/30/23 04:00 Pulse 54 L 07/30/23 11:00 Resp 20 07/30/23 11:00 BP 134/59 07/30/23 11:00 Pulse Ox 99 07/30/23 11:00 FiO2 40 07/30/23 11:00 Intake & Output 07/29/23 07/30/23 07/30/23 18:59 06:59 18:59 Intake Total 949 1324.904 242.996 Output Total 660 450 165 Balance 289 874.904 77.996 Weight 99.9 kg Intake: IV 326 376 142 0.9 240 240 80 Cefepime 1 gm In Sodium 50 100 50 Chloride 0.9% 50 ml @ 12. 5 mls/hr IVPB Q12HR MARCEL Rx#:[id number] pressure bag 36 36 12 Intake, IV Titration 15.904 29.996 Amount propofoL 1,000 mg In 15.904 29.996 Empty Bag 1 bag @ 15 MCG/ KG/MIN 7.267 mls/hr IV . [id number] MARCEL Rx#:[id number] Tube Feeding 533 533 41 Blood Product 310 Rc As-1 Unit 310 [id number] Other 90 90 30 Output: Urine 660 450 165 Other: Voiding Method Indwelling Catheter Indwelling Catheter # Bowel Movements 1 ABP, PAP, CO, CI - Last Documented Arterial Blood Pressure 148/52 - Exam Patient's pupils are equal, round and not clearly reacting. Oculocephalics are absent. Corneals are absent. On painful stimuli, patient sometimes moves his head. He has some sporadic involuntary movement of his lower extremity. Sometimes it slightly jerks. Patient has been off propofol. Patient is comatose with GCS of 4. - Labs CBC & Chem 7: 07/30/23 04:50 07/30/23 04:50 Labs: Abnormal Lab Results - Last 24 Hours (Table) 07/26/23 07/29/23 07/29/23 Range/Units 11:14 12:01 13:29 WBC (3.8-10.6) k/uL RBC (4.30-5.90) m/uL Hgb (13.0-17.5) gm/dL Hct (39.0-53.0) % RDW (11.5-15.5) % Plt Count (150-450) k/uL ABG pO2 (83-108) mmHg ABG O2 Saturation (94-97) % Sodium (137-145) mmol/L Carbon Dioxide (22-30) mmol/L BUN (9-20) mg/dL Creatinine (0.66-1.25) mg/dL Glucose (74-99) mg/dL POC Glucose (mg/dL) 222 H 185 H (70-110) mg/dL Calcium (8.4-10.2) mg/dL AST (17-59) U/L ALT (4-49) U/L Crossmatch See Detail 07/29/23 07/29/23 07/29/23 Range/Units 17:05 19:59 20:26 WBC 16.6 H (3.8-10.6) k/uL RBC 2.34 L (4.30-5.90) m/uL Hgb 6.7 L* (13.0-17.5) gm/dL Hct 21.6 L (39.0-53.0) % RDW 15.8 H (11.5-15.5) % Plt Count 129 L (150-450) k/uL ABG pO2 (83-108) mmHg ABG O2 Saturation (94-97) % Sodium (137-145) mmol/L Carbon Dioxide (22-30) mmol/L BUN (9-20) mg/dL Creatinine (0.66-1.25) mg/dL Glucose (74-99) mg/dL POC Glucose (mg/dL) 180 H 165 H (70-110) mg/dL Calcium (8.4-10.2) mg/dL AST (17-59) U/L ALT (4-49) U/L Crossmatch 07/29/23 07/30/23 07/30/23 Range/Units 23:42 04:01 04:50 WBC 16.4 H (3.8-10.6) k/uL RBC 2.70 L (4.30-5.90) m/uL Hgb 8.1 L (13.0-17.5) gm/dL Hct 24.7 L (39.0-53.0) % RDW 15.8 H (11.5-15.5) % Plt Count 133 L (150-450) k/uL ABG pO2 (83-108) mmHg ABG O2 Saturation (94-97) % Sodium (137-145) mmol/L Carbon Dioxide (22-30) mmol/L BUN (9-20) mg/dL Creatinine (0.66-1.25) mg/dL Glucose (74-99) mg/dL POC Glucose (mg/dL) 154 H 156 H (70-110) mg/dL Calcium (8.4-10.2) mg/dL AST (17-59) U/L ALT (4-49) U/L Crossmatch 07/30/23 07/30/23 07/30/23 Range/Units 04:50 04:50 05:51 WBC (3.8-10.6) k/uL RBC (4.30-5.90) m/uL Hgb (13.0-17.5) gm/dL Hct (39.0-53.0) % RDW (11.5-15.5) % Plt Count (150-450) k/uL ABG pO2 119 H (83-108) mmHg ABG O2 Saturation 98.2 H (94-97) % Sodium 131 L (137-145) mmol/L Carbon Dioxide 19 L (22-30) mmol/L BUN 127 H* (9-20) mg/dL Creatinine 4.10 H (0.66-1.25) mg/dL Glucose 171 H (74-99) mg/dL POC Glucose (mg/dL) (70-110) mg/dL Calcium 7.7 L (8.4-10.2) mg/dL AST 109 H (17-59) U/L ALT 129 H (4-49) U/L Crossmatch 07/30/23 07/30/23 Range/Units 06:16 08:53 WBC (3.8-10.6) k/uL RBC (4.30-5.90) m/uL Hgb (13.0-17.5) gm/dL Hct (39.0-53.0) % RDW (11.5-15.5) % Plt Count (150-450) k/uL ABG pO2 (83-108) mmHg ABG O2 Saturation (94-97) % Sodium (137-145) mmol/L Carbon Dioxide (22-30) mmol/L BUN (9-20) mg/dL Creatinine (0.66-1.25) mg/dL Glucose (74-99) mg/dL POC Glucose (mg/dL) 216 H 218 H (70-110) mg/dL Calcium (8.4-10.2) mg/dL AST (17-59) U/L ALT (4-49) U/L Crossmatch Assessment and Plan Assessment: * Status postcardiac arrest 07/22/2023 with downtime of about 7 minutes. Patient also had hypoglycemia at that time with blood sugar 25. Patient probably has combination of anoxic encephalopathy, with some component of metabolic encephalopathy, and with the factors mentioned below. * Focal seizures noted clinically. 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 Resolved after adding Vimpat. * Acute ischemic stroke, large size involving watershed territory between the left MCA/NICO. There is also evidence of a small area of acute infarction in the right anterior frontal lobe between the right NICO/MCA territory. * Multiple hepatic lesions, possible metastatic cancer. Unknown primary yet. Status post liver biopsy. * Acute hypoxic respiratory failure, on mechanical ventilator. * Acute GI bleed. * Hyponatremia * Hyperkalemia * Acute on chronic chronic renal failure * Elevated liver enzymes * Anemia * Elevated troponin. * History of kidney and liver transplant in 2016 * History of polysubstance abuse, hepatitis C, treated. * Hypertension * Hyperlipidemia * History of gout Plan: * CT head, follow-up on CVA. * Repeat EEG. * Patient seizures have stopped with current regimen of Keppra and Vimpat. No seizures noticed spontaneously, or with stimulus evoked. * Patient continues to be comatose, day 8 postcardiac arrest, with GCS of 3-4. * Repeat EEG 07/28/2023 was severely abnormal due to presence of generalized, 1 Hz sharp appearing waves seen in bihemispheric region, which is slightly more focal towards the right parietal region. 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 After patient received 2 mg Ativan IV, several minutes later, these epileptiform activity was replaced by diffuse slowing in 2 to 3 Hz delta with some.'s of suppression. Clinical correlation and follow-up is recommended as clinically indicated. * Patient already on Keppra 500 mg twice daily. Patient now started on Vimpat 100 mg twice daily as well. Seizures resolved. * Initial EEG performed 07/26/2023 was severely abnormal due to presence of periods of generalized suppression, intermixed with some low amplitude 2 to 3 Hz delta slowing suggestive of generalized cerebral dysfunction as can be seen with anoxic, or severe toxic metabolic encephalopathy or related to diffuse structural brain abnormality. Clinical correlation is recommended. No epileptiform activity was seen. No electrographic seizure was recorded. * CT scan of the head revealed a very large watershed ischemic stroke between left NICO and left MCA territory involving the frontal, parietal and occipital lobes. No mass effect or midline shift. No hemorrhage. * Patient is [id number], therefore the major portion of stroke is involving the dominant hemisphere. This may have significant implications with right hemiparesis and probable significant speech, and memory deficits. * Based upon this large bilateral stroke (L>>R), recent cardiac arrest, nonconvulsive status epilepticus, and possible suspected metastatic cancer, the prognosis remains very poor for meaningful recovery. * Discussed with patient's regarding the result of CT head, which also shows an additional small area of ischemic infarction involving the right frontal region between NICO/MCA territory. Overall this watershed territory infarct could be related to hypoperfusion during cardiac arrest. * Consider repeating CT head. * Patient had undergone ultrasound-guided liver biopsy today. Being worked up for possible metastatic cancer. Path report pending. * Other medical management as per IM and other specialties involved. * Carotid Doppler revealed mild to moderate intimal thickening and plaque in the right carotid bifurcation resulting in the moderate 50 to 69% stenosis based on peak systolic velocity. No significant interval change compared to previous. Right vertebral artery not seen. Unable to scan the left side because of central line in left IJ vein. * Start aspirin 325 mg daily, but patient is allergic to nonsteroidals. * Discussed with family members. * Dr. John Santillan to resume neurology service in the morning.
[2023-07-30] MEDS: HYDROmorphone 1 MG/ML 1 ML SYRINGE IVP PRN (11:57)
[2023-07-30] MEDS: HYDROCORTISONE SUCCINATE 100 MG/2 ML VIAL IV SCH (17:17)
[2023-07-30 17:27] LABS: Glucose,Whole Blood 164 mg/dL (70-110)
--- NOTE | 2023-07-30 18:16 | CT ---
EXAMINATION TYPE: CT brain wo con CT DLP: 1167.2 mGycm, Automated exposure control for dose reduction was used. DATE OF EXAM: 07/30/2023 6:06 PM COMPARISON: CT brain 07/26/2023, 07/21/2023. CLINICAL INDICATION:Male, 72 years old with history of CVA follow up, CVA follow up TECHNIQUE: Brain: Axial CT images of the brain were obtained with coronal and sagittal reformats created and rev iewed. Contrast used: None. Oral contrast used: None. FINDINGS: Brain: Extra-axial spaces: No abnormal extra-axial fluid collections. Ventricular system: Within normal limits Cerebral parenchyma: No acute intraparenchymal hemorrhage or mass effect. There is redemonstration o f regional hypoattenuation which is near CSF attenuation and infarcts involving the left frontal lobe , and parietal lobe as described on the prior study. Right frontal foci of hypoattenuation consistent with infarcts also appreciated and stable compared to prior study. No new areas of infarction are ap preciated.. Cerebellum: Unremarkable. Mass effect: No evidence of midline shift. Intracranial vasculature: Atherosclerotic calcifications of the intracranial vessels. Soft tissues: Normal. Calvarium/osseous structures: No depressed skull fracture. Paranasal sinuses and mastoid air cells: Mild scattered paranasal sinus disease. Visualized orbits: Bilateral aphakia IMPRESSION: Stable appearance of suspected late subacute infarcts involving the left frontal and parietal lobes a s well as right frontal lobe. No evidence of intracranial hemorrhage or new areas of involvement
[2023-07-30 19:51] LABS: Glucose,Whole Blood 149 mg/dL (70-110)
[2023-07-30 21:51] LABS: MCH 28.6 pg (25.0-35.0); MCV 92.3 fL (80.0-100.0); Mean Platelet Volume 8.6; Platelet Count 126 k/uL (150-450); RBC 2.81 m/uL (4.30-5.90); RDW 15.9 % (11.5-15.5); WBC 19.5 k/uL (3.8-10.6)
[2023-07-30 23:10] LABS: Glucose,Whole Blood 124 mg/dL (70-110)
[2023-07-31 04:31] LABS: Glucose,Whole Blood 180 mg/dL (70-110)
[2023-07-31 04:59] LABS: Anisocytosis Slight; HCT 25.3 % (39.0-53.0); HGB 8.4 gm/dL (13.0-17.5); Hypochromasia Slight; MCH 30.2 pg (25.0-35.0); MCHC 33.2 g/dL (31.0-37.0); MCV 90.9 fL (80.0-100.0); Mean Platelet Volume 8.8; Platelet Count 133 k/uL (150-450); RBC 2.78 m/uL (4.30-5.90); RDW 16.2 % (11.5-15.5); WBC 20.8 k/uL (3.8-10.6)
[2023-07-31 05:23] LABS: African American GFR (CKD) 14 (>60 ml/min/1.73 sqM); Anion Gap 15 mmol/L; Calcium 7.9 mg/dL (8.4-10.2); Carbon Dioxide 19 mmol/L (22-30); Chloride 98 mmol/L (98-107); Glucose 166 mg/dL (74-99); Non-African American GFR(CKD) 12 (>60 ml/min/1.73 sqM); Potassium 4.6 mmol/L (3.5-5.1); Sodium 132 mmol/L (137-145)
[2023-07-31 05:40] LABS: ABG Base Excess -6.1 mmol/L; ABG HCO3 19 mmol/L (21-25); ABG Oxygen Saturation 98.7 % (94-97); ABG PCO2 34 mmHg (35-45); ABG PH 7.37 (7.35-7.45); ABG PO2 147 mmHg (83-108); ABG TCO2 20 mmol/L (19-24); Allen Test Performed? Yes
--- NOTE | 2023-07-31 07:35 | XR ---
EXAMINATION TYPE: XR chest 1V portable DATE OF EXAM: 07/31/2023 Comparison: 07/29/2023 Clinical History: 72-year-old male OG tube placement Findings: ET and NG tubes are satisfactory. Left anterior chest wall injection port with catheter tip at the ca voatrial junction. Left CVC tip in the right atrium. Some asymmetric elevation right hemidiaphragm. P atchy opacity mid and lower lungs show some improvement. No pleural effusion. Impression: Improving aeration with minimal residual patchy density in the lower lungs.
[2023-07-31 07:44] LABS: Blood Urea Nitrogen 137 mg/dL (9-20)
[2023-07-31 07:53] LABS: Glucose,Whole Blood 173 mg/dL (70-110)
[2023-07-31] MEDS: FUROSEMIDE 10 MG/ML 10 ML VIAL IV SCH (09:47)
--- NOTE | 2023-07-31 09:54 | P.PN ---
Subjective Patient is seen in follow-up for acute kidney injury on chronic kidney disease. Renal function continues to worsen. Urine output 30-35 cc an hour. Receiving tube feeds. Intubated. Vital signs are stable. General: Resting in bed. HEENT: Intubated. LUNGS: Scattered rhonchi. HEART: Rate and Rhythm are regular. ABDOMEN: Obese. EXTREMITITES: 2+ edema. Penile edema noted. Objective - Vital Signs Vital signs: Vital Signs Temp 98.2 F 07/31/23 04:00 Pulse 88 07/31/23 09:41 Resp 14 07/31/23 07:00 BP 134/75 07/31/23 07:00 Pulse Ox 100 07/31/23 07:00 FiO2 35 07/31/23 09:41 Intake & Output 07/30/23 07/31/23 07/31/23 18:59 06:59 18:59 Intake Total 987.492 930 Output Total 490 535 Balance 497.492 395 Weight 99.9 kg 97.6 kg Intake: IV 393 389 0.9 220 260 Cefepime 1 gm In Sodium 50 Chloride 0.9% 50 ml @ 12. 5 mls/hr IVPB Q12HR [facility] Rx#:[id number] Invasive Line 2 90 90 pressure bag 33 39 Intake, IV Titration 53.492 Amount propofoL 1,000 mg In 29.996 Empty Bag 1 bag @ 15 MCG/ KG/MIN 7.267 mls/hr IV . [id number] [facility]ARCEL Rx#:[id number] propofoL 1,000 mg In 23.496 Empty Bag 1 bag @ 15 MCG/ KG/MIN 7.267 mls/hr IV . [id number] [facility]EL Rx#:[id number] Tube Feeding 451 451 Other 90 90 Output: Urine 490 535 Other: Voiding Method Indwelling Catheter Indwelling Catheter # Bowel Movements 0 1 ABP, PAP, CO, CI - Last Documented Arterial Blood Pressure 152/67 - Labs CBC & Chem 7: 07/31/23 04:46 07/31/23 04:46 Labs: Abnormal Lab Results - Last 24 Hours (Table) 07/30/23 07/30/23 07/30/23 Range/Units 11:47 17:25 19:50 WBC (3.8-10.6) k/uL RBC (4.30-5.90) m/uL Hgb (13.0-17.5) gm/dL Hct (39.0-53.0) % RDW (11.5-15.5) % Plt Count (150-450) k/uL ABG pCO2 (35-45) mmHg ABG pO2 (83-108) mmHg ABG HCO3 (21-25) mmol/L ABG O2 Saturation (94-97) % Sodium (137-145) mmol/L Carbon Dioxide (22-30) mmol/L BUN (9-20) mg/dL Creatinine (0.66-1.25) mg/dL Glucose (74-99) mg/dL POC Glucose (mg/dL) 182 H 164 H 149 H (70-110) mg/dL Calcium (8.4-10.2) mg/dL 07/30/23 07/30/23 07/31/23 Range/Units 21:04 23:09 04:28 WBC 19.5 H (3.8-10.6) k/uL RBC 2.81 L (4.30-5.90) m/uL Hgb 8.0 L (13.0-17.5) gm/dL Hct 26.0 L (39.0-53.0) % RDW 15.9 H (11.5-15.5) % Plt Count 126 L (150-450) k/uL ABG pCO2 (35-45) mmHg ABG pO2 (83-108) mmHg ABG HCO3 (21-25) mmol/L ABG O2 Saturation (94-97) % Sodium (137-145) mmol/L Carbon Dioxide (22-30) mmol/L BUN (9-20) mg/dL Creatinine (0.66-1.25) mg/dL Glucose (74-99) mg/dL POC Glucose (mg/dL) 124 H 180 H (70-110) mg/dL Calcium (8.4-10.2) mg/dL 07/31/23 07/31/23 07/31/23 Range/Units 04:46 04:46 05:33 WBC 20.8 H (3.8-10.6) k/uL RBC 2.78 L (4.30-5.90) m/uL Hgb 8.4 L (13.0-17.5) gm/dL Hct 25.3 L (39.0-53.0) % RDW 16.2 H (11.5-15.5) % Plt Count 133 L (150-450) k/uL ABG pCO2 34 L (35-45) mmHg ABG pO2 147 H (83-108) mmHg ABG HCO3 19 L (21-25) mmol/L ABG O2 Saturation 98.7 H (94-97) % Sodium 132 L (137-145) mmol/L Carbon Dioxide 19 L (22-30) mmol/L BUN 137 H* (9-20) mg/dL Creatinine 4.64 H (0.66-1.25) mg/dL Glucose 166 H (74-99) mg/dL POC Glucose (mg/dL) (70-110) mg/dL Calcium 7.9 L (8.4-10.2) mg/dL 07/31/23 Range/Units 07:51 WBC (3.8-10.6) k/uL RBC (4.30-5.90) m/uL Hgb (13.0-17.5) gm/dL Hct (39.0-53.0) % RDW (11.5-15.5) % Plt Count (150-450) k/uL ABG pCO2 (35-45) mmHg ABG pO2 (83-108) mmHg ABG HCO3 (21-25) mmol/L ABG O2 Saturation (94-97) % Sodium (137-145) mmol/L Carbon Dioxide (22-30) mmol/L BUN (9-20) mg/dL Creatinine (0.66-1.25) mg/dL Glucose (74-99) mg/dL POC Glucose (mg/dL) 173 H (70-110) mg/dL Calcium (8.4-10.2) mg/dL Assessment and Plan Plan: Assessment: 1. Status post liver and kidney transplant in 2016 performed at [facility]. Currently on IV steroids. 2. Acute kidney injury secondary to ATN secondary to cardiac arrest. Renal function worsening. Creatinine 4.64 today. Elevated BUN due to acute kidney injury, IV steroids as well as component of GI bleed. 3. Chronic kidney disease stage IIIa with baseline creatinine 1.4-1.6 secondary to solitary kidney and long-term CNI use. 4. Bradycardia with PEA arrest. Dopamine discontinued. 5. Acute left parietal and occipital CVA. 6. Multiple liver lesions noted concerning for malignancy. Biopsy results pending. 7. Hyponatremia secondary to acute kidney injury. Hypervolemic. 8. Hyperkalemia secondary to acute kidney injury, acidosis and Prograf. Better. 9. Metabolic acidosis secondary to acute kidney injury and IV fluids. On oral bicarb. 10. Hyperphosphatemia secondary to acute kidney injury. Plan: Add IV Lasix 80 mg twice daily. Maintain tube feeds. Decrease Solu-Cortef to 50 mg twice daily. Continue to hold CellCept. Prograf level 14.7 dated July 24, 2023. Prograf level 5.0 dated July 28, 2023. Prograf 2 mg twice daily resumed July 30, 2023. Follow-up repeat Prograf level. Add PhosLo. Avoid nephrotoxins. Prognosis guarded. Continue to monitor renal function and urine output. Preserved EF noted on echo. If no improvement in renal function and urine output in the next 24 to 48 hours, will initiate renal replacement therapy. Case discussed with patient's present at bedside.
[2023-07-31 11:43] LABS: Glucose,Whole Blood 124 mg/dL (70-110)
[2023-07-31 11:47] LABS: Glucose,Whole Blood 119 mg/dL (70-110)
[2023-07-31] MEDS: CALCIUM ACETATE 667 MG TAB PO SCH (11:54)
[2023-07-31 12:52] VITALS: BMI 30.9
--- NOTE | 2023-07-31 13:47 | P.PN ---
Subjective Progress Note Date: 07/31/23 Principal diagnosis: Acute hypoxic respiratory failure secondary to cardiac arrest Progress Note Date: 07/30/23 72-year-old black male, who [facility], is seen in the emergency department, on July 18, for shortness of breath. The patient apparently has been having shortness of breath, since being discharged from [facility]. Recently, the patient was started on a fentanyl patch for back pain, but denies all other medications. He apparently was admitted at the other hospital, for total of 4 days according to his , and was found to have some lesions on his liver and lung. The patient is apparently awaiting an outpatient PET scan. He did see one of the cancer doctors at the other facility. Currently, the patient is seen in ER room 28. The patient is currently on BiPAP, with settings of 12/6 and 28%. According to his he has a history of liver and kidney transplantation. He is getting saline at 75 cc an hour. He apparently had a chest x-ray that was interpreted as normal, and a VQ scan that was interpreted as being very low probability for pulmonary embolism. He does not use oxygen at home. He quit smoking 43 years ago. He had a blood gas showing a pO2 of 124, pCO2 of 35, and a pH of 7.30. This is consistent with metabolic acidosis. His other medical history includes gastroesophageal reflux disease, hypertension, hyperlipidemia, liver kidney transplant at [facility] in 2015, diabetes, and gout. The patient is a former smoker, having quit some 43 years ago as mentioned above. Current labs include a white count of 16.2, hemoglobin 8.4, hematocrit 27.6, and a platelet count of 268,000. Sodium 126, potassium 5.2, chlorides 102, CO2 18, BUN 35, and creatinine 1.63. Calcium is 8.5. Glucose is 161. The patient has a nonanion gap metabolic acidosis, likely from his renal insufficiency/failure. The patient has a couple different chest x- rays, which did not show acute cardiopulmonary disease. 07/30/2023, no change in the patient's condition. Overnight, the patient became asynchronous with the mechanical ventilator and according to the patient was placed on propofol at 30 mcg/kg/min. He remains unresponsive. Progressive worsening renal function has been noted. The patient is currently on KVO IV fluids. Remains on the mechanical ventilator, assist-control mode with rate of 20, tidal volume of 450, FiO2 of 40% with a PEEP of 5. Blood gas showed pH of 7.37 with a pCO2 of 36 and pO2 of 119. No chest x-ray is available from today.Chest x-ray was noted. Hemoglobin is dropped also under 7 and the patient received a unit of packed RBC and hemoglobin is up to 8.1. White cell count is 16, sodium level is at 131 with a potassium level of 4.4, BUN is 127 with a creatinine of 4.1. Awaiting final pathology from the liver biopsy. High suspicion for carcinoma either of a GI source or lung. Favor the first. Remains on enteral feeding for nutritional support. He is currently on Nepro at rate of 41 cc an hour. Tolerating enteral feeding. No hypoglycemia. Reevaluated on 07/31/2023, patient remains in the ICU, intubated and mechanically ventilated. Patient was initially admitted on 07/18, he had a cardiac arrest on 07/20 requiring intubation mechanical ventilation. Remains intubated and mechani alexander ventilated, he is on assist-control rate of 20 tidal volume 450 FiO2 40% and PEEP of 5. ABG showed a pO2 of 147 pCO2 34 pH of 7.37 hence FiO2 Down to 35%. Liver biopsy report is still pending. Patient was found to have multiple liver lesions, and significantly elevated CA 199, hepatobiliary malignancy is being considered, pathology from liver biopsy is pending. Remains on fentanyl at 50 mcg every 4 hours, he is also on cefepime, patient is on propofol which I have started today, his creatinine is up to 4.64. Remains on Nepro 37/41. WBC count is 20.8 hemoglobin 8.4. Basic metabolic profile is normal BUN however is 137 creatinine 4.64. Chest x-ray is showing small right-sided pleural effusion and minimal areas of atelectasis. Doubt fully assess his neurological status today, patient grimaces only to deep painful stimuli. is at bedside, and she was updated on his condition, patient is presently DNR CODE STATUS Objective - Vital Signs Vital signs: Vital Signs Temp 98.2 F 07/31/23 04:00 Pulse 72 07/31/23 13:25 Resp 24 07/31/23 12:00 BP 147/74 07/31/23 12:00 Pulse Ox 98 05/06/24 12:00 FiO2 35 07/31/23 13:19 Intake & Output 07/30/23 07/31/23 07/31/23 18:59 06:59 18:59 Intake Total 987.492 930 596.074 Output Total 490 535 215 Balance 497.492 395 381.074 Weight 99.9 kg 97.6 kg 97.6 kg Intake: IV 393 389 248 0.9 220 260 120 Cefepime 1 gm In Sodium 50 50 Chloride 0.9% 50 ml @ 12. 5 mls/hr IVPB Q12HR [facility] Rx#:[id number] Invasive Line 2 90 90 60 pressure bag 33 39 18 Intake, IV Titration 53.492 1.074 Amount propofoL 1,000 mg In 29.996 Empty Bag 1 bag @ 15 MCG/ KG/MIN 7.267 mls/hr IV . [id number] [facility] Rx#:[id number] propofoL 1,000 mg In 23.496 Empty Bag 1 bag @ 15 MCG/ KG/MIN 7.267 mls/hr IV . [id number] [facility] Rx#:[id number] propofoL 1,000 mg In 1.074 Empty Bag 1 bag @ 15 MCG/ KG/MIN 8.784 mls/hr IV . [id number] [facility] Rx#:[id number] Tube Feeding 451 451 287 Other 90 90 60 Output: Urine 490 535 215 Other: Voiding Method Indwelling Catheter Indwelling Catheter # Bowel Movements 0 1 0 ABP, PAP, CO, CI - Last Documented Arterial Blood Pressure 139/62 - Exam Physical exam: General: revealed a 72-year-old male, intubated, mechanically ventilated, not in distress. Sedated. Head exam was generally normal. There was no scleral icterus or corneal arcus. Mucous membranes were moist. Tracheal tube and orogastric tube are intact. HEENT examination is grossly unremarkable. Moist mucous membranes. Neck supple. No neck masses, no JVD. Cardiovascular examination reveals distant S1-S2, no S3 gallop, no murmur. Lungs: Diminished breath sound bilaterally no rhonchi no wheezes. Symmetrical chest expansion. Abdomen soft bowel sounds are heard. No masses or tenderness. Extremities are intact. No cyanosis clubbing or edema. Skin is without rash or lesion. Neurologic pupils are sluggishly reactive to light, patient is unresponsive, grimaces only to deep painful stimuli, could not fully assess neurological status. - Labs CBC & Chem 7: 07/31/23 04:46 07/31/23 04:46 Labs: Abnormal Lab Results - Last 24 Hours (Table) 07/30/23 07/30/23 07/30/23 Range/Units 17:25 19:50 21:04 WBC 19.5 H (3.8-10.6) k/uL RBC 2.81 L (4.30-5.90) m/uL Hgb 8.0 L (13.0-17.5) gm/dL Hct 26.0 L (39.0-53.0) % RDW 15.9 H (11.5-15.5) % Plt Count 126 L (150-450) k/uL ABG pCO2 (35-45) mmHg ABG pO2 (83-108) mmHg ABG HCO3 (21-25) mmol/L ABG O2 Saturation (94-97) % Sodium (137-145) mmol/L Carbon Dioxide (22-30) mmol/L BUN (9-20) mg/dL Creatinine (0.66-1.25) mg/dL Glucose (74-99) mg/dL POC Glucose (mg/dL) 164 H 149 H (70-110) mg/dL Calcium (8.4-10.2) mg/dL 07/30/23 07/31/23 07/31/23 Range/Units 23:09 04:28 04:46 WBC 20.8 H (3.8-10.6) k/uL RBC 2.78 L (4.30-5.90) m/uL Hgb 8.4 L (13.0-17.5) gm/dL Hct 25.3 L (39.0-53.0) % RDW 16.2 H (11.5-15.5) % Plt Count 133 L (150-450) k/uL ABG pCO2 (35-45) mmHg ABG pO2 (83-108) mmHg ABG HCO3 (21-25) mmol/L ABG O2 Saturation (94-97) % Sodium (137-145) mmol/L Carbon Dioxide (22-30) mmol/L BUN (9-20) mg/dL Creatinine (0.66-1.25) mg/dL Glucose (74-99) mg/dL POC Glucose (mg/dL) 124 H 180 H (70-110) mg/dL Calcium (8.4-10.2) mg/dL 07/31/23 07/31/23 07/31/23 Range/Units 04:46 05:33 07:51 WBC (3.8-10.6) k/uL RBC (4.30-5.90) m/uL Hgb (13.0-17.5) gm/dL Hct (39.0-53.0) % RDW (11.5-15.5) % Plt Count (150-450) k/uL ABG pCO2 34 L (35-45) mmHg ABG pO2 147 H (83-108) mmHg ABG HCO3 19 L (21-25) mmol/L ABG O2 Saturation 98.7 H (94-97) % Sodium 132 L (137-145) mmol/L Carbon Dioxide 19 L (22-30) mmol/L BUN 137 H* (9-20) mg/dL Creatinine 4.64 H (0.66-1.25) mg/dL Glucose 166 H (74-99) mg/dL POC Glucose (mg/dL) 173 H (70-110) mg/dL Calcium 7.9 L (8.4-10.2) mg/dL 07/31/23 07/31/23 Range/Units 11:41 11:46 WBC (3.8-10.6) k/uL RBC (4.30-5.90) m/uL Hgb (13.0-17.5) gm/dL Hct (39.0-53.0) % RDW (11.5-15.5) % Plt Count (150-450) k/uL ABG pCO2 (35-45) mmHg ABG pO2 (83-108) mmHg ABG HCO3 (21-25) mmol/L ABG O2 Saturation (94-97) % Sodium (137-145) mmol/L Carbon Dioxide (22-30) mmol/L BUN (9-20) mg/dL Creatinine (0.66-1.25) mg/dL Glucose (74-99) mg/dL POC Glucose (mg/dL) 124 H 119 H (70-110) mg/dL Calcium (8.4-10.2) mg/dL Assessment and Plan Assessment: Impression: Cardiac arrest/PEA cardiac arrest. Associated with an episode of acute hypoglycemia. Requiring intubation and mechanical ventilation. Acute hypoxic respiratory failure secondary to cardiac arrest Multiple pulmonary nodules with abnormal findings on the liver and elevated CA 199, suspect underlying pancreatic malignancy with metastasis. History of kidney/liver transplantation in 2016 at the [facility] Chronic kidney disease posttransplantation with component of acute kidney injury on this admission. Acute on chronic kidney injury Multiple hepatic lesions, status post liver biopsy Acute brain injury/anoxic encephalopathy is suspected. History of seizures, presently on Vimpat and Keppra Acute transaminitis, improving since admission Benign essential hypertension Dyslipidemia GERD without esophagitis Acute left parietal and occipital CVA Metabolic acidosis secondary to acute on chronic kidney injury Recommendation: Continue ventilatory support Continue nutritional support Continue close follow-up on his neurological status and address with neurology on the case Awaiting pathology report from his liver biopsy, according to the patient had colonoscopy which was normal in March. Continue GI DVT prophylaxis Patient remains critically ill Continue IV cefepime empirically, Blood cultures and sputum cultures remain negative Nephrology is considering renal replacement therapy if no improvement in renal functioning and any urine output in the next 24 hours was updated on his condition at bedside, Prognosis is extremely poor and guarded. DNR CODE STATUS Depending on the liver pathology, may even initiate discussion about comfort care. Will continue to follow Code care time is over 30 minutes Time with Patient: Greater than 30
--- NOTE | 2023-07-31 14:23 | CDI ---
Documentation Clarification Form Date: 07/28/2023 04:54:00 PM From: Citlalli Knapp RN CCDS Phone: [phone] Admit Date: 07/19/2023 03:31:00 PM Patient Name: Carlton Cox Visit Number: [id number] Discharge Date: ATTENTION: The Clinical Documentation Specialists (CDI) and [facility] Coding Staff appreciate your assistance in clarifying documentation. Please respond to the clarification below the line at the bottom and electronically sign. The CDI & [facility] Coding staff will review the response and follow-up if needed. Please note: Queries are made part of the Legal Health Record. If you have any questions, please contact the author of this message via ITS. Dr. Mame Nathan Sepsis was last documented Medicine notes 07/25, but is not noted in subsequent documentation. Clarification is requested. History/Risk Factors: 72 year old male presents to the ED for increasing shortness of breath since discharge from [facility] yesterday was admitted for four days and found to have lesions of his liver and lung. Medical History: Liver disease, renal disease, Vascular disorder, DM2 and HLD. 07/18, ED note. Clinical Indicators: VSS, 07/18: B/P 113/77, HR 70, Temp 97.7F Oral; RR 18; SpO2 98% room air VSS, 07/21: B/P 155/71, HR 78, Temp 98.2 F Oral; RR 30; SpO2 99% BiPAP LABS, 07/18: Wbc 16.0; Neutrophils 14.2; D-dimer 18.53; LABS, 07/21: Wbc 19.7; [id number]; 07/21, ID consult: patient with acute respiratory failure which is likely multifactorial in this patient who did have a cardiac arrest this morning patient did have elevated p rocalcitonin and a possible component of pneumonia not entirely excluded possible gram-negative. 07/21, Medicine note: Sepsis: Patient meets sepsis criteria. 07/22, Medicine note: Shock, probable sepsis. 07/25, Medicine note: Shock, probable sepsis. Was on and off levo now requiring dopamine for complete heart block. Treatment: 07/21 Cefepime 2gm IVPB Q12H; 07/22 Tylenol 1,000mg IVPB x 1; 07/23 07/24 Sodium Chloride with Sodium Bicarbonate 1,150mls @ 100mls/hr; / Cefepime HCI 1gm 50mls @ 12.5 mls/hr IVPB Q12H Please clarify if the Sepsis is: [ ] Sepsis POA confirmed, remains under treatment [ x ] Sepsis confirmed, remains under treatment [ ] Sepsis ruled out [ ] Other condition, please specify [ ] Unable to determine (Template Last Revised: May 2020) MTDD
--- NOTE | 2023-07-31 15:43 | P.PN ---
Subjective Progress Note Date: 07/31/23 Patient's kidney function continues to get worse. Hemoglobin has remained stable after 1 unit of transfusion. Goals of care discussion was had with patient's family yesterday, they are considering comfort care but are not ready to make that transition as of yet, awaiting final pathology. In the interim, they did decide on transitioning patient to a no CODE STATUS. Nephrology notes that patient will likely need [employer] in the next 24 to 48 hours if patient's kidney function does not improve with a trial of IV Lasix today. General: intubated, sedated HEENT: normocephalic, atraumatic, no tracheal deviation Respiratory: symmetric chest rise, no cyanosis, ventilator dependent CVS: perfusing all extremities, no distal gangrene, bilateral pitting edema GI: soft, ND : no SPT, no CVAT, soriano is present Neuro: sedated Hospital Course: Patient is a 59-year-old male with BPH, carotid stenosis, cirrhosis, diabetes, end-stage renal disease status post renal and liver transplant no longer requiring hemodialysis, glaucoma, hypertension, and multiple other comorbid conditions who presented to the emergency department with complaints of shortness of breath. Patient had recently been at an outside hospital for abdominal and back pain they are workup revealed lesions in his liver, kidney, and lung and he was requiring Dilaudid [id number] for pain. He was discharged on a fentanyl patch with a PET scan scheduled for July with Dr. Wise. In the emergency department here he was noted to have a white blood cell count of 16, sodium 124, BUN 30, creatinine 1.76 (baseline creatinine 2), AST 241, ALT 153, alkaline phosphatase 669, and a D-dimer of 18.53. Patient was admitted with concerns for possible pulmonary embolism and he was started on Lovenox. He subsequently underwent a ventilation/perfusion scan which demonstrated low probability for pulmonary embolism. He underwent echocardiogram which demonstrated ejection fraction of 55 to 60% with mild aortic stenosis. Renal and bladder ultrasound demonstrated hepatic metastatic disease with transplanted kidneys and atrophic [place] kidneys. Oncology was consulted. They recommended continuing pain control considering additional imaging and IR consultation. Patient was noted to have change in mentation and therefore underwent a CT of the head which demonstrated no acute intracranial process. He then became hypoxic requiring high flow nasal cannula and ultimately BiPAP. Pulmonary was consulted and added bronchodilators. On the morning of 07/21 patient was undergoing a BiPAP weaning trial when he lost pulses and CPR was initiated. He had ROSC after 2 rounds of epinephrine however his mental status did not improve and he was subsequently intubated and transferred to the ICU. He required norepinephrine for less than 24 hours. Infectious disease was consulted he recommended adding cefepime while awaiting cultures to finalize. Nephrology was consulted who recommended holding CellCept and continuing tacrolimus and prednisone. His Tacro was then held. Patient became bradycardiac overnight on 07/24 and cardio was consulted and the patient was started on a dobutamine gtt. Patient developed seizures early this morning and was given Ativan from critical care with resolution of seizure-like activity. Neurology was consulted. CT brain was ordered and patient was loaded with Keppra. He underwent liver biopsy on 07/26/23. Patient has remained obtunded despite temporary discontinuation of propofol. He had a repeat EEG which did demonstrate some seizure-like activity, was started on lacosamide in addition to the Keppra that he had been on. Repeat head CT continue to demonstrate findings of significant left-sided [place] stroke as well as right frontal lobe watershed territory stroke. Kidney function continues to decline. Patient did have a drop in hemoglobin warranting 1 unit of packed red blood cell transfusion on 07/28 with appropriate response. Goals of care discussion with family was had on 07/29ey change patient's CODE STATUS to DNR, and they are considering comfort care but would like some further time to consider as testing continues to be completed, including the finalization of pathology report. Assessment/Plan: S/P Cardiac arrest Multiple lung and liver nodules, probable malignancy Intractable pain likely related to malignancy Acute hypoxic respiratory failure Transaminitis suspect secondary to liver lesions versus hepatitis C - s/p liver biopsy, pathology pending, discussed with Dr. Dobbs 07/27, this is likely neoplastic - Await further oncology recs - Await further ID recs - Cefepime 2 g IV piggyback twice daily D # 10, lamivudine 100mg daily - Solucortef 100 mg IVP q 8 hours - Hold Lipitor due to elevated liver enzymes - Fentanyl 75 mcg patch has been continued. - DuoNebs every 4 hours and as needed Seizures Right Frontal and Left parietal and occipital lobe likely represent watershed infarcts, discussed these findings with Neurology Acute encephalopathy, possible anoxic -Neurology consultation appreciated -Keppra 500 mg every 12 hours, lacosamide 100mg IV BID Episodes of complete heart block with unclear etiology NSTEMI - Off coreg - Cardiology recs appreciated - repeat echo with EF 60% Chronic kidney disease stage III status post renal and liver transplant Hyponatremia, possible SIADH Metabolic acidosis Hyperkalemia - Nephrology note reviewed: maintain tube feeds, maintain hydrocortisone, continue to hold tacro -IVF NS 20 cc/hr - Continue to hold tacrolimus, cellcept, and prednisone 2 mg daily - Continue to follow renal function Acute Blood Loss superimposed on normocytic anemia - s/p 1U PRBC given on 07/28, hgb now 8.1 Diabetes mellitus type 2 with episodes of hypoglycemia - NovoLog 2 units every 6 hours in addition to sliding scale every 6 hours - Maintain levemir to 28 units once daily - Follow blood sugars Chronic conditions BPH Carotid stenosis Hepatitis C Hypertension Dyslipidemia Osteoarthritis Vitamin D deficiency Pulmonary embolism ruled out Poor over all prognosis DVT prophylaxis: Lovenox Anticipated discharge date: Pending Clinical Course Anticipated discharge place: Pending Clinical Course This dictation was prepared using [employer]Out voice recognition software. Though every attempt is made to correct errors during dictation some may still exist. Objective - Vital Signs Vital signs: Vital Signs Temp 98.2 F 07/31/23 04:00 Pulse 72 07/31/23 13:25 Resp 24 07/31/23 13:00 BP 130/70 07/31/23 13:00 Pulse Ox 98 07/31/23 13:00 FiO2 35 07/31/23 13:19 Intake & Output 07/30/23 07/31/23 07/31/23 18:59 06:59 18:59 Intake Total 987.492 930 642.074 Output Total 490 535 275 Balance 497.492 395 367.074 Weight 99.9 kg 97.6 kg 97.6 kg Intake: IV 393 389 294 0.9 220 260 160 Cefepime 1 gm In Sodium 50 50 Chloride 0.9% 50 ml @ 12. 5 mls/hr IVPB Q12HR [facility] Rx#:[id number] Invasive Line 2 90 90 60 pressure bag 33 39 24 Intake, IV Titration 53.492 1.074 Amount propofoL 1,000 mg In 29.996 Empty Bag 1 bag @ 15 MCG/ KG/MIN 7.267 mls/hr IV . [id number] [facility] Rx#:[id number] propofoL 1,000 mg In 23.496 Empty Bag 1 bag @ 15 MCG/ KG/MIN 7.267 mls/hr IV . [id number] [facility] Rx#:[id number] propofoL 1,000 mg In 1.074 Empty Bag 1 bag @ 15 MCG/ KG/MIN 8.784 mls/hr IV . [id number] [facility] Rx#:[id number] Tube Feeding 451 451 287 Other 90 90 60 Output: Urine 490 535 275 Other: Voiding Method Indwelling Catheter Indwelling Catheter # Bowel Movements 0 1 0 ABP, PAP, CO, CI - Last Documented Arterial Blood Pressure 126/55 - Labs CBC & Chem 7: 07/31/23 04:46 07/31/23 04:46 Labs: Abnormal Lab Results - Last 24 Hours (Table) 07/30/23 07/30/23 07/30/23 Range/Units 17:25 19:50 21:04 WBC 19.5 H (3.8-10.6) k/uL RBC 2.81 L (4.30-5.90) m/uL Hgb 8.0 L (13.0-17.5) gm/dL Hct 26.0 L (39.0-53.0) % RDW 15.9 H (11.5-15.5) % Plt Count 126 L (150-450) k/uL ABG pCO2 (35-45) mmHg ABG pO2 (83-108) mmHg ABG HCO3 (21-25) mmol/L ABG O2 Saturation (94-97) % Sodium (137-145) mmol/L Carbon Dioxide (22-30) mmol/L BUN (9-20) mg/dL Creatinine (0.66-1.25) mg/dL Glucose (74-99) mg/dL POC Glucose (mg/dL) 164 H 149 H (70-110) mg/dL Calcium (8.4-10.2) mg/dL 07/30/23 07/31/23 07/31/23 Range/Units 23:09 04:28 04:46 WBC 20.8 H (3.8-10.6) k/uL RBC 2.78 L (4.30-5.90) m/uL Hgb 8.4 L (13.0-17.5) gm/dL Hct 25.3 L (39.0-53.0) % RDW 16.2 H (11.5-15.5) % Plt Count 133 L (150-450) k/uL ABG pCO2 (35-45) mmHg ABG pO2 (83-108) mmHg ABG HCO3 (21-25) mmol/L ABG O2 Saturation (94-97) % Sodium (137-145) mmol/L Carbon Dioxide (22-30) mmol/L BUN (9-20) mg/dL Creatinine (0.66-1.25) mg/dL Glucose (74-99) mg/dL POC Glucose (mg/dL) 124 H 180 H (70-110) mg/dL Calcium (8.4-10.2) mg/dL 07/31/23 07/31/23 07/31/23 Range/Units 04:46 05:33 07:51 WBC (3.8-10.6) k/uL RBC (4.30-5.90) m/uL Hgb (13.0-17.5) gm/dL Hct (39.0-53.0) % RDW (11.5-15.5) % Plt Count (150-450) k/uL ABG pCO2 34 L (35-45) mmHg ABG pO2 147 H (83-108) mmHg ABG HCO3 19 L (21-25) mmol/L ABG O2 Saturation 98.7 H (94-97) % Sodium 132 L (137-145) mmol/L Carbon Dioxide 19 L (22-30) mmol/L BUN 137 H* (9-20) mg/dL Creatinine 4.64 H (0.66-1.25) mg/dL Glucose 166 H (74-99) mg/dL POC Glucose (mg/dL) 173 H (70-110) mg/dL Calcium 7.9 L (8.4-10.2) mg/dL 07/31/23 07/31/23 Range/Units 11:41 11:46 WBC (3.8-10.6) k/uL RBC (4.30-5.90) m/uL Hgb (13.0-17.5) gm/dL Hct (39.0-53.0) % RDW (11.5-15.5) % Plt Count (150-450) k/uL ABG pCO2 (35-45) mmHg ABG pO2 (83-108) mmHg ABG HCO3 (21-25) mmol/L ABG O2 Saturation (94-97) % Sodium (137-145) mmol/L Carbon Dioxide (22-30) mmol/L BUN (9-20) mg/dL Creatinine (0.66-1.25) mg/dL Glucose (74-99) mg/dL POC Glucose (mg/dL) 124 H 119 H (70-110) mg/dL Calcium (8.4-10.2) mg/dL
[2023-07-31 17:00] LABS: Glucose,Whole Blood 150 mg/dL (70-110)
--- NOTE | 2023-07-31 19:28 | P.PN ---
Subjective Progress Note Date: 07/30/23 Principal diagnosis: Reason for follow-up is possible pneumonia Patient is a 72-year-old male with a past medical history negative for hypertension hyperlipidemia reflux, end-stage renal disease s/p renal and liver transplant in 2016 recent vascular bypassed presented to hospital due to abdominal and worsening back pain did have a cardiac arrest for the patient has been intubated and admitted to the ICU. On today's visit that is 07/30/2023,the patient remains to be afebrile, patient is intubated on the vent FiO2 currently stable at 35% patient is hemodynamically stable not requiring any pressor support, no other changes reported by nursing staff. Patient white count slightly up to 19.5 today, creatinine is 4.10 Objective - Vital Signs Vital signs: Vital Signs Temp 98.6 F 07/30/23 04:00 Pulse 62 07/30/23 16:19 Resp 20 07/30/23 15:00 BP 150/66 07/30/23 15:00 Pulse Ox 99 07/30/23 15:00 FiO2 40 07/30/23 16:14 Intake & Output 07/29/23 07/30/23 07/30/23 18:59 06:59 18:59 Intake Total 949 1324.904 735.492 Output Total 660 450 315 Balance 289 874.904 420.492 Weight 99.9 kg Intake: IV 326 376 294 0.9 240 240 160 Cefepime 1 gm In Sodium 50 100 50 Chloride 0.9% 50 ml @ 12. 5 mls/hr IVPB Q12HR MARCEL Rx#:[id number] Invasive Line 2 60 pressure bag 36 36 24 Intake, IV Titration 15.904 53.492 Amount propofoL 1,000 mg In 15.904 29.996 Empty Bag 1 bag @ 15 MCG/ KG/MIN 7.267 mls/hr IV . [id number] MARCEL Rx#:[id number] propofoL 1,000 mg In 23.496 Empty Bag 1 bag @ 15 MCG/ KG/MIN 7.267 mls/hr IV . [id number] MARCEL Rx#:[id number] Tube Feeding 533 533 328 Blood Product 310 Rc As-1 Unit 310 [id number] Other 90 90 60 Output: Urine 660 450 315 Other: Voiding Method Indwelling Catheter Indwelling Catheter Indwelling Catheter # Bowel Movements 1 0 ABP, PAP, CO, CI - Last Documented Arterial Blood Pressure 170/59 - Exam GENERAL DESCRIPTION: An elderly male intubated on the vent RESPIRATORY SYSTEM: Unlabored breathing , decreased breath sounds at bases HEART: S1 S2 regular rate and rhythm , ABDOMEN: Soft , no tenderness EXTREMITIES: No edema feet - Labs CBC & Chem 7: 07/31/23 04:46 07/31/23 04:46 Labs: Abnormal Lab Results - Last 24 Hours (Table) 07/26/23 07/29/23 07/29/23 Range/Units 11:14 19:59 20:26 WBC 16.6 H (3.8-10.6) k/uL RBC 2.34 L (4.30-5.90) m/uL Hgb 6.7 L* (13.0-17.5) gm/dL Hct 21.6 L (39.0-53.0) % RDW 15.8 H (11.5-15.5) % Plt Count 129 L (150-450) k/uL ABG pO2 (83-108) mmHg ABG O2 Saturation (94-97) % Sodium (137-145) mmol/L Carbon Dioxide (22-30) mmol/L BUN (9-20) mg/dL Creatinine (0.66-1.25) mg/dL Glucose (74-99) mg/dL POC Glucose (mg/dL) 165 H (70-110) mg/dL Calcium (8.4-10.2) mg/dL AST (17-59) U/L ALT (4-49) U/L Crossmatch See Detail 07/29/23 07/30/23 07/30/23 Range/Units 23:42 04:01 04:50 WBC 16.4 H (3.8-10.6) k/uL RBC 2.70 L (4.30-5.90) m/uL Hgb 8.1 L (13.0-17.5) gm/dL Hct 24.7 L (39.0-53.0) % RDW 15.8 H (11.5-15.5) % Plt Count 133 L (150-450) k/uL ABG pO2 (83-108) mmHg ABG O2 Saturation (94-97) % Sodium (137-145) mmol/L Carbon Dioxide (22-30) mmol/L BUN (9-20) mg/dL Creatinine (0.66-1.25) mg/dL Glucose (74-99) mg/dL POC Glucose (mg/dL) 154 H 156 H (70-110) mg/dL Calcium (8.4-10.2) mg/dL AST (17-59) U/L ALT (4-49) U/L Crossmatch 07/30/23 07/30/23 07/30/23 Range/Units 04:50 04:50 05:51 WBC (3.8-10.6) k/uL RBC (4.30-5.90) m/uL Hgb (13.0-17.5) gm/dL Hct (39.0-53.0) % RDW (11.5-15.5) % Plt Count (150-450) k/uL ABG pO2 119 H (83-108) mmHg ABG O2 Saturation 98.2 H (94-97) % Sodium 131 L (137-145) mmol/L Carbon Dioxide 19 L (22-30) mmol/L BUN 127 H* (9-20) mg/dL Creatinine 4.10 H (0.66-1.25) mg/dL Glucose 171 H (74-99) mg/dL POC Glucose (mg/dL) (70-110) mg/dL Calcium 7.7 L (8.4-10.2) mg/dL AST 109 H (17-59) U/L ALT 129 H (4-49) U/L Crossmatch 07/30/23 07/30/23 07/30/23 Range/Units 06:16 08:53 11:47 WBC (3.8-10.6) k/uL RBC (4.30-5.90) m/uL Hgb (13.0-17.5) gm/dL Hct (39.0-53.0) % RDW (11.5-15.5) % Plt Count (150-450) k/uL ABG pO2 (83-108) mmHg ABG O2 Saturation (94-97) % Sodium (137-145) mmol/L Carbon Dioxide (22-30) mmol/L BUN (9-20) mg/dL Creatinine (0.66-1.25) mg/dL Glucose (74-99) mg/dL POC Glucose (mg/dL) 216 H 218 H 182 H (70-110) mg/dL Calcium (8.4-10.2) mg/dL AST (17-59) U/L ALT (4-49) U/L Crossmatch 07/30/23 Range/Units 17:25 WBC (3.8-10.6) k/uL RBC (4.30-5.90) m/uL Hgb (13.0-17.5) gm/dL Hct (39.0-53.0) % RDW (11.5-15.5) % Plt Count (150-450) k/uL ABG pO2 (83-108) mmHg ABG O2 Saturation (94-97) % Sodium (137-145) mmol/L Carbon Dioxide (22-30) mmol/L BUN (9-20) mg/dL Creatinine (0.66-1.25) mg/dL Glucose (74-99) mg/dL POC Glucose (mg/dL) 164 H (70-110) mg/dL Calcium (8.4-10.2) mg/dL AST (17-59) U/L ALT (4-49) U/L Crossmatch Assessment and Plan (1) Pneumonia Current Visit: Yes Status: Acute Code(s): J18.9 - PNEUMONIA, UNSPECIFIED ORGANISM SNOMED Code(s): 590776115 (2) Leukocytosis Current Visit: Yes Status: Acute Code(s): D72.829 - ELEVATED WHITE BLOOD CELL COUNT, UNSPECIFIED SNOMED Code(s): 019665047 (3) Penicillin allergy Current Visit: Yes Status: Acute Code(s): Z88.0 - ALLERGY STATUS TO PENICILLIN SNOMED Code(s): 15612517 Plan: 1patient with acute respiratory failure which is likely multifactorial in this patient who did have a cardiac arrest this morning patient did have elevated procalcitonin and a possible component of pneumonia not entirely excluded possible gram-negative 2-blood and sputum culture are so far negative 3-patient is afebrile, white count slightly up today could be related to steroids and monitor closely continue empiric cefepime while waiting for the biopsy Dictation was produced using [employer] dictation software. please excuse any grammatical, word or spelling errors. Time with Patient: Less than 30
--- NOTE | 2023-07-31 19:29 | P.PN ---
Subjective Progress Note Date: 07/31/23 Principal diagnosis: Reason for follow-up is possible pneumonia Patient is a 72-year-old male with a past medical history negative for hypertension hyperlipidemia reflux, end-stage renal disease s/p renal and liver transplant in 2016 recent vascular bypassed presented to hospital due to abdominal and worsening back pain did have a cardiac arrest for the patient has been intubated and admitted to the ICU. On today's visit that is 07/31/2023, the patient continues to be afebrile, the patient is intubated on the vent FiO2 currently stable at 35% no significant purulent secretions through the ET diarrhea or any other changes reported by nursing staff patient not requiring any pressor support. Patient white count is 20.8, creatinine is 4.64 Objective - Vital Signs Vital signs: Vital Signs Temp 98.2 F 07/31/23 04:00 Pulse 75 07/31/23 11:00 Resp 28 H 07/31/23 11:00 BP 155/71 07/31/23 11:00 Pulse Ox 98 07/31/23 11:00 FiO2 35 07/31/23 09:41 Intake & Output 07/30/23 07/31/23 07/31/23 18:59 06:59 18:59 Intake Total 987.492 930 407 Output Total 490 535 145 Balance 497.492 395 262 Weight 99.9 kg 97.6 kg 97.6 kg Intake: IV 393 389 172 0.9 220 260 80 Cefepime 1 gm In Sodium 50 50 Chloride 0.9% 50 ml @ 12. 5 mls/hr IVPB Q12HR [facility] Rx#:[id number] Invasive Line 2 90 90 30 pressure bag 33 39 12 Intake, IV Titration 53.492 Amount propofoL 1,000 mg In 29.996 Empty Bag 1 bag @ 15 MCG/ KG/MIN 7.267 mls/hr IV . [id number] [facility]EL Rx#:[id number] propofoL 1,000 mg In 23.496 Empty Bag 1 bag @ 15 MCG/ KG/MIN 7.267 mls/hr IV . [id number] [facility]ARCEL Rx#:[id number] Tube Feeding 451 451 205 Other 90 90 30 Output: Urine 490 535 145 Other: Voiding Method Indwelling Catheter Indwelling Catheter # Bowel Movements 0 1 0 ABP, PAP, CO, CI - Last Documented Arterial Blood Pressure 126/55 - Exam GENERAL DESCRIPTION: An elderly male intubated on the vent RESPIRATORY SYSTEM: Unlabored breathing , decreased breath sounds at bases HEART: S1 S2 regular rate and rhythm , ABDOMEN: Soft , no tenderness EXTREMITIES: No edema feet - Labs CBC & Chem 7: 07/31/23 04:46 07/31/23 04:46 Labs: Abnormal Lab Results - Last 24 Hours (Table) 07/30/23 07/30/23 07/30/23 Range/Units 17:25 19:50 21:04 WBC 19.5 H (3.8-10.6) k/uL RBC 2.81 L (4.30-5.90) m/uL Hgb 8.0 L (13.0-17.5) gm/dL Hct 26.0 L (39.0-53.0) % RDW 15.9 H (11.5-15.5) % Plt Count 126 L (150-450) k/uL ABG pCO2 (35-45) mmHg ABG pO2 (83-108) mmHg ABG HCO3 (21-25) mmol/L ABG O2 Saturation (94-97) % Sodium (137-145) mmol/L Carbon Dioxide (22-30) mmol/L BUN (9-20) mg/dL Creatinine (0.66-1.25) mg/dL Glucose (74-99) mg/dL POC Glucose (mg/dL) 164 H 149 H (70-110) mg/dL Calcium (8.4-10.2) mg/dL 07/30/23 07/31/23 07/31/23 Range/Units 23:09 04:28 04:46 WBC 20.8 H (3.8-10.6) k/uL RBC 2.78 L (4.30-5.90) m/uL Hgb 8.4 L (13.0-17.5) gm/dL Hct 25.3 L (39.0-53.0) % RDW 16.2 H (11.5-15.5) % Plt Count 133 L (150-450) k/uL ABG pCO2 (35-45) mmHg ABG pO2 (83-108) mmHg ABG HCO3 (21-25) mmol/L ABG O2 Saturation (94-97) % Sodium (137-145) mmol/L Carbon Dioxide (22-30) mmol/L BUN (9-20) mg/dL Creatinine (0.66-1.25) mg/dL Glucose (74-99) mg/dL POC Glucose (mg/dL) 124 H 180 H (70-110) mg/dL Calcium (8.4-10.2) mg/dL 07/31/23 07/31/23 07/31/23 Range/Units 04:46 05:33 07:51 WBC (3.8-10.6) k/uL RBC (4.30-5.90) m/uL Hgb (13.0-17.5) gm/dL Hct (39.0-53.0) % RDW (11.5-15.5) % Plt Count (150-450) k/uL ABG pCO2 34 L (35-45) mmHg ABG pO2 147 H (83-108) mmHg ABG HCO3 19 L (21-25) mmol/L ABG O2 Saturation 98.7 H (94-97) % Sodium 132 L (137-145) mmol/L Carbon Dioxide 19 L (22-30) mmol/L BUN 137 H* (9-20) mg/dL Creatinine 4.64 H (0.66-1.25) mg/dL Glucose 166 H (74-99) mg/dL POC Glucose (mg/dL) 173 H (70-110) mg/dL Calcium 7.9 L (8.4-10.2) mg/dL 07/31/23 07/31/23 Range/Units 11:41 11:46 WBC (3.8-10.6) k/uL RBC (4.30-5.90) m/uL Hgb (13.0-17.5) gm/dL Hct (39.0-53.0) % RDW (11.5-15.5) % Plt Count (150-450) k/uL ABG pCO2 (35-45) mmHg ABG pO2 (83-108) mmHg ABG HCO3 (21-25) mmol/L ABG O2 Saturation (94-97) % Sodium (137-145) mmol/L Carbon Dioxide (22-30) mmol/L BUN (9-20) mg/dL Creatinine (0.66-1.25) mg/dL Glucose (74-99) mg/dL POC Glucose (mg/dL) 124 H 119 H (70-110) mg/dL Calcium (8.4-10.2) mg/dL Assessment and Plan (1) Pneumonia Current Visit: Yes Status: Acute Code(s): J18.9 - PNEUMONIA, UNSPECIFIED ORGANISM SNOMED Code(s): 347080572 (2) Leukocytosis Current Visit: Yes Status: Acute Code(s): D72.829 - ELEVATED WHITE BLOOD CELL COUNT, UNSPECIFIED SNOMED Code(s): 942029238 (3) Penicillin allergy Current Visit: Yes Status: Acute Code(s): Z88.0 - ALLERGY STATUS TO PENICILLIN SNOMED Code(s): 76164205 Plan: 1patient with acute respiratory failure which is likely multifactorial in this patient who did have a cardiac arrest this morning patient did have elevated procalcitonin and a possible component of pneumonia not entirely excluded possible gram-negative 2-blood and sputum culture are so far negative 3-patient is afebrile and culture has been negative for resistant pathogen patient noticed to have slight worsening of the white count more likely related to steroids and monitor closely, continue with empiric cefepime at the bedside questions were answered Dictation was produced using [employer] dictation software. please excuse any grammatical, word or spelling errors. Time with Patient: Less than 30
[2023-07-31 20:05] LABS: Glucose,Whole Blood 133 mg/dL (70-110)
[2023-07-31] MEDS: HYDROCORTISONE SUCCINATE 100 MG/2 ML VIAL IV SCH (20:15)
[2023-08-01 00:11] LABS: Glucose,Whole Blood 148 mg/dL (70-110)
[2023-08-01 04:23] LABS: Glucose,Whole Blood 155 mg/dL (70-110)
[2023-08-01 04:51] LABS: Anisocytosis Slight; Basophils % (A) 0 %; Eosinophils % (A) 0 %; HCT 25.7 % (39.0-53.0); HGB 8.3 gm/dL (13.0-17.5); Hypochromasia Slight; Lymphocytes # (A) 0.5 k/uL (1.0-4.8); Lymphocytes % (A) 3 %; MCH 29.9 pg (25.0-35.0); MCHC 32.5 g/dL (31.0-37.0); Mean Platelet Volume 8.8; Monocytes # (A) 0.6 k/uL (0-1.0); Monocytes % (A) 3 %; Neutrophils # (A) 18.5 k/uL (1.3-7.7); Neutrophils % (A) 94 %; Platelet Count 163 k/uL (150-450); RBC 2.79 m/uL (4.30-5.90); RDW 16.1 % (11.5-15.5); WBC 19.8 k/uL (3.8-10.6)
[2023-08-01 04:55] LABS: ABG Base Excess -6.5 mmol/L; ABG HCO3 19 mmol/L (21-25); ABG Oxygen Saturation 97.9 % (94-97); ABG PCO2 33 mmHg (35-45); ABG PH 7.36 (7.35-7.45); ABG PO2 108 mmHg (83-108); ABG TCO2 20 mmol/L (19-24); Allen Test Performed? Yes
--- NOTE | 2023-08-01 05:13 | EEG ---
ELECTROENCEPHALOGRAM REPORT CLINICAL HISTORY: This is a 72-year-old gentleman with history of cardiac arrest with clinical seizures. The video EEG is obtained to evaluate for seizure epileptiform activity. RELEVANT MEDICATIONS: 1. Keppra. 2. Vimpat. EEG TYPE: This is a routine 21-channel EEG with video using the 10/20 electrode placement system. DESCRIPTION: The patient is intubated on a ventilator. The background consists of [id number] voltage of 2 to 3 hertz delta activity that is polymorphic, nonrhythmic. There is no physiological stage 2 sleep architecture. There is no focal slowing. Interictal and ictal is none. ACTIVATION PROCEDURE: Photic stimulation did not evoke a posterior driving response. There is no abnormality during the photic stimulation. Hyperventilation is not performed. CLINICAL INTERPRETATION: This is an abnormal routine EEG. The background slowing is suggestive of severe encephalopathy. There is no focal slowing, epileptiform discharge, or seizure on the EEG. Clinical correlation is recommended. JUNIE / MADIHA: [id number] / MTDD
[2023-08-01 05:21] LABS: ALT 106 U/L (4-49); AST 64 U/L (17-59); African American GFR (CKD) 11 (>60 ml/min/1.73 sqM); Albumin 2.1 g/dL (3.5-5.0); Anion Gap 18 mmol/L; Calcium 7.8 mg/dL (8.4-10.2); Carbon Dioxide 16 mmol/L (22-30); Chloride 98 mmol/L (98-107); Glucose 137 mg/dL (74-99); Magnesium 2.4 mg/dL (1.6-2.3); Non-African American GFR(CKD) 10 (>60 ml/min/1.73 sqM); Potassium 4.4 mmol/L (3.5-5.1); Sodium 132 mmol/L (137-145); Total Bilirubin 1.6 mg/dL (0.2-1.3); Total Protein 4.7 g/dL (6.3-8.2)
[2023-08-01 05:57] LABS: Alkaline Phosphatase 631 U/L (38-126)
[2023-08-01 05:58] LABS: Blood Urea Nitrogen 154 mg/dL (9-20)
--- NOTE | 2023-08-01 07:35 | XR ---
EXAMINATION TYPE: XR chest 1V portable DATE OF EXAM: 08/01/2023 Comparison: 07/31/2023 Clinical History: 72-year-old male mechanical ventilation Findings: ET and NG tubes are satisfactory. Left anterior chest wall injection port with catheter tip at the up per right atrium. Left CVC tip cavoatrial junction. Patient rotated towards the right ultrasound and normal cardiac and mediastinal contours. Similar asymmetric elevation right hemidiaphragm. Worsening patchy right basilar opacity and additional scattered patchy opacity throughout the left lung. No siz able pleural effusion. Impression: Limited rotated exam. There appear to be worsening patchy opacities at the right base and scattered t hroughout the left lung.
[2023-08-01 08:07] LABS: Glucose,Whole Blood 117 mg/dL (70-110)
[2023-08-01] MEDS: predniSONE 20 MG TAB OG-TUBE SCH (09:10)
--- NOTE | 2023-08-01 09:54 | P.PN ---
Subjective Patient is seen in follow-up for acute kidney injury on chronic kidney disease. Renal function continues to worsen. Urine output fairly stable at 30 to 40 cc an hour. Tube feeds currently held due to bloody bowel movement. Intubated. Vital signs are stable. General: Resting in bed. HEENT: Intubated. LUNGS: Scattered rhonchi. HEART: Rate and Rhythm are regular. ABDOMEN: Obese. EXTREMITITES: 2+ edema. Objective - Vital Signs Vital signs: Vital Signs Temp 98.7 F 08/01/23 08:00 Pulse 72 08/01/23 09:42 Resp 24 08/01/23 09:42 BP 143/67 08/01/23 09:00 Pulse Ox 100 08/01/23 09:00 FiO2 35 08/01/23 09:15 Intake & Output 07/31/23 08/01/23 08/01/23 18:59 06:59 18:59 Intake Total 1081.074 638.430 39 Output Total 400 340 128 Balance 681.074 298.430 -89 Weight 97.6 kg 101.3 kg Intake: IV 416 173 39 0.9 240 Cefepime 1 gm In Sodium 50 50 Chloride 0.9% 50 ml @ 12. 5 mls/hr IVPB Q12HR [facility] Rx#:[id number] Invasive Line 2 90 90 30 pressure bag 36 33 9 Intake, IV Titration 1.074 159.430 Amount propofoL 1,000 mg In 1.074 159.430 Empty Bag 1 bag @ 15 MCG/ KG/MIN 8.784 mls/hr IV . [id number] [facility]ARCEL Rx#:[id number] Tube Feeding 574 246 Other 90 60 Output: Urine 400 340 128 Other: Voiding Method Indwelling Catheter # Bowel Movements 0 1 ABP, PAP, CO, CI - Last Documented Arterial Blood Pressure 135/55 - Labs CBC & Chem 7: 08/01/23 04:20 08/01/23 04:20 Labs: Abnormal Lab Results - Last 24 Hours (Table) 07/31/23 07/31/23 07/31/23 Range/Units 11:41 11:46 16:59 WBC (3.8-10.6) k/uL RBC (4.30-5.90) m/uL Hgb (13.0-17.5) gm/dL Hct (39.0-53.0) % RDW (11.5-15.5) % Neutrophils # (1.3-7.7) k/uL Lymphocytes # (1.0-4.8) k/uL ABG pCO2 (35-45) mmHg ABG HCO3 (21-25) mmol/L ABG O2 Saturation (94-97) % Sodium (137-145) mmol/L Carbon Dioxide (22-30) mmol/L BUN (9-20) mg/dL Creatinine (0.66-1.25) mg/dL Glucose (74-99) mg/dL POC Glucose (mg/dL) 124 H 119 H 150 H (70-110) mg/dL Calcium (8.4-10.2) mg/dL Magnesium (1.6-2.3) mg/dL Total Bilirubin (0.2-1.3) mg/dL AST (17-59) U/L ALT (4-49) U/L Alkaline Phosphatase (38-126) U/L Total Protein (6.3-8.2) g/dL Albumin (3.5-5.0) g/dL 07/31/23 08/01/23 08/01/23 Range/Units 20:02 00:10 04:20 WBC 19.8 H (3.8-10.6) k/uL RBC 2.79 L (4.30-5.90) m/uL Hgb 8.3 L (13.0-17.5) gm/dL Hct 25.7 L (39.0-53.0) % RDW 16.1 H (11.5-15.5) % Neutrophils # 18.5 H (1.3-7.7) k/uL Lymphocytes # 0.5 L (1.0-4.8) k/uL ABG pCO2 (35-45) mmHg ABG HCO3 (21-25) mmol/L ABG O2 Saturation (94-97) % Sodium (137-145) mmol/L Carbon Dioxide (22-30) mmol/L BUN (9-20) mg/dL Creatinine (0.66-1.25) mg/dL Glucose (74-99) mg/dL POC Glucose (mg/dL) 133 H 148 H (70-110) mg/dL Calcium (8.4-10.2) mg/dL Magnesium (1.6-2.3) mg/dL Total Bilirubin (0.2-1.3) mg/dL AST (17-59) U/L ALT (4-49) U/L Alkaline Phosphatase (38-126) U/L Total Protein (6.3-8.2) g/dL Albumin (3.5-5.0) g/dL 08/01/23 08/01/23 08/01/23 Range/Units 04:20 04:22 04:50 WBC (3.8-10.6) k/uL RBC (4.30-5.90) m/uL Hgb (13.0-17.5) gm/dL Hct (39.0-53.0) % RDW (11.5-15.5) % Neutrophils # (1.3-7.7) k/uL Lymphocytes # (1.0-4.8) k/uL ABG pCO2 33 L (35-45) mmHg ABG HCO3 19 L (21-25) mmol/L ABG O2 Saturation 97.9 H (94-97) % Sodium 132 L (137-145) mmol/L Carbon Dioxide 16 L (22-30) mmol/L BUN 154 H* (9-20) mg/dL Creatinine 5.47 H (0.66-1.25) mg/dL Glucose 137 H (74-99) mg/dL POC Glucose (mg/dL) 155 H (70-110) mg/dL Calcium 7.8 L (8.4-10.2) mg/dL Magnesium 2.4 H (1.6-2.3) mg/dL Total Bilirubin 1.6 H (0.2-1.3) mg/dL AST 64 H (17-59) U/L ALT 106 H (4-49) U/L Alkaline Phosphatase 631 H (38-126) U/L Total Protein 4.7 L (6.3-8.2) g/dL Albumin 2.1 L (3.5-5.0) g/dL 08/01/23 Range/Units 08:05 WBC (3.8-10.6) k/uL RBC (4.30-5.90) m/uL Hgb (13.0-17.5) gm/dL Hct (39.0-53.0) % RDW (11.5-15.5) % Neutrophils # (1.3-7.7) k/uL Lymphocytes # (1.0-4.8) k/uL ABG pCO2 (35-45) mmHg ABG HCO3 (21-25) mmol/L ABG O2 Saturation (94-97) % Sodium (137-145) mmol/L Carbon Dioxide (22-30) mmol/L BUN (9-20) mg/dL Creatinine (0.66-1.25) mg/dL Glucose (74-99) mg/dL POC Glucose (mg/dL) 117 H (70-110) mg/dL Calcium (8.4-10.2) mg/dL Magnesium (1.6-2.3) mg/dL Total Bilirubin (0.2-1.3) mg/dL AST (17-59) U/L ALT (4-49) U/L Alkaline Phosphatase (38-126) U/L Total Protein (6.3-8.2) g/dL Albumin (3.5-5.0) g/dL Assessment and Plan Plan: Assessment: 1. Status post liver and kidney transplant in 2016 performed at [facility]. 2. Acute kidney injury secondary to ATN secondary to cardiac arrest. Renal fu nction worsening. Creatinine 5.47 today. Elevated BUN due to acute kidney injury, IV steroids as well as component of GI bleed. 3. Chronic kidney disease stage IIIa with baseline creatinine 1.4-1.6 secondary to solitary kidney and long-term CNI use. 4. Bradycardia with PEA arrest. Dopamine discontinued. 5. Acute left parietal and occipital CVA. 6. Multiple liver lesions noted concerning for malignancy. Biopsy results consistent with malignancy. 7. Hyponatremia secondary to acute kidney injury. Hypervolemic. Stable. 8. Hyperkalemia secondary to acute kidney injury, acidosis and Prograf. Better. 9. Metabolic acidosis secondary to acute kidney injury and IV fluids. On oral bicarb. 10. Hyperphosphatemia secondary to acute kidney injury. On PhosLo. Plan: Maintain IV Lasix. Stop IV Solu-Cortef. Start prednisone 40 mg once daily. Continue to hold CellCept. Prograf level 14.7 dated July 24, 2023. Prograf level 5.0 dated July 28, 2023. Prograf 2 mg twice daily resumed July 30, 2023. Follow-up repeat Prograf level. Avoid nephrotoxins. Prognosis guarded. Continue to monitor renal function and urine output. Preserved EF noted on echo. Family meeting to discuss pathology findings pending. If family still wishes to continue with aggressive measures, will initiate renal replacement therapy.
[2023-08-01] MEDS: SODIUM BICARB 8.4% 50 ML SYR (1 MEQ/ML) IV STA (10:25)
--- NOTE | 2023-08-01 11:40 | P.GSCN ---
History of Present Illness Consult date: 08/01/23 History of present illness: CHIEF COMPLAINT: Shortness of breath Reason for consult GI bleed HISTORY OF PRESENT ILLNESS: This is a 72-year-old male who presented to the hospital with worsening shortness of breath. He is currently in the ICU intubated and on mechanical ventilation after cardiac arrest on July 20. Patient also with a suspected pancreatic malignancy with metastatic liver lesions and pulmonary nodules. He also had an acute CVA. Patient with a prior surgical history of kidney/liver transplant in 2016 at [facility]. Surgical service has been consulted due to a GI bleed. Patient had 1 bloody bowel movement yesterday evening. Since then no further bloody bowel movements. Hemoglobin remained stable yesterday and today at 8.3. Prior to the bleeding patient did have a hemoglobin of 6.7 and received a blood transfusion. Per chart family had reported a normal colonoscopy in March. No vomiting or bloody output noted from OG tube. PAST MEDICAL HISTORY: See list. PAST SURGICAL HISTORY: See list. MEDICATIONS: See list. ALLERGIES: See list. SOCIAL HISTORY: No illicit drug use. REVIEW OF SYSTEMS: Patient intubated. unable to obtain PHYSICAL EXAM: VITAL SIGNS: Reviewed GENERAL: no acute distress. HEENT: No sclera icterus. Moist buccal mucosa. Head is atraumatic, normocephalic. NECK: Supple without lymphadenopathy. CHEST: Non-labored respirations and equal bilateral excursions. CARDIOVASCULAR: Palpable 2+ radial pulses. ABDOMEN: Soft. Nondistended. Nontender MUSCULOSKELETAL: No clubbing or cyanosis. NEUROLOGIC: intubated LABORATORY DATA: WBC 19.8 Hgb 8.3 platelets 163 Sodium 132 potassium 4.4 creatinine 5.47 Total bilirubin 1.6 AST down from 10 9-64 ALT 129 down to 106 alk phos 61 Stool for occult blood positive IMAGING: ASSESSMENT: 1. Acute GI bleed with bright red blood per rectum 2. Anemia 3. Cardiac arrest 4. Acute hypoxic respiratory failure secondary to cardiac arrest 5. Suspected underlying pancreatic malignancy with metastasis. Patient has liver lesions and pulmonary nodules and elevated CA 19-9 6. Acute on chronic kidney injury 7. CVA PLAN: -No plan for endoscopies at this time -Okay to resume tube feeds -Continue Protonix -Continue to monitor for any signs or symptoms of bleeding -Continue to monitor hemoglobin Physician Patient Scheduling Manager note has been reviewed by physician. Signing provider agrees with the documented findings, assessment, and plan of care. Past Medical History Past Medical History: GERD/Reflux, Hyperlipidemia, Hypertension, Liver Disease, Renal Disease, Vascular Disorder Additional Past Medical History / Comment(s): liver/kidney failure with transplant at [facility] in 2015, IDDM type II, PVD, gout History of Any Multi-Drug Resistant Organisms: None Reported Past Surgical History: Cholecystectomy, Orthopedic Surgery Additional Past Surgical History / Comment(s): kidney and liver transplant september 2015, rt rotator cuff, bilateral hip fractures/surgery, ERCP with stent/since removed, R chest port. Past Anesthesia/Blood Transfusion Reactions: No Reported Reaction Past Psychological History: No Psychological Hx Reported Smoking Status: Former smoker Past Alcohol Use History: None Reported Past Drug Use History: Heroin - Past Family History Mother Family Medical History: Diabetes Mellitus Father Family Medical History: No Reported History Brother(s) Family Medical History: Diabetes Mellitus Sister(s) Family Medical History: Diabetes Mellitus Daughter(s) Family Medical History: No Reported History Medications and Allergies Home Medications Medication Instructions Recorded Confirmed Type INSULIN ASPART (NovoLOG) [NovoLOG See Protocol SQ AC-TID 04/21/22 07/19/23 History (formulary)] Latanoprost [Latanoprost 0.005%] 1 drop BOTH EYES HS 04/21/22 07/19/23 History NIFEdipine [Adalat CC] 60 mg PO BID 04/21/22 07/19/23 History Omeprazole 20 mg PO QAM 04/21/22 07/19/23 History carvediloL [Coreg] 6.25 mg PO BID 04/21/22 07/19/23 History lamiVUDine [Epivir] 100 mg PO QAM 04/21/22 07/19/23 History mycophenolate mofetiL [Cellcept] 250 mg PO BID 04/21/22 07/19/23 History predniSONE 2 mg PO QAM 04/21/22 07/19/23 History ursodioL [Ursodiol] 300 mg PO TID 04/21/22 07/19/23 History Insulin Glargine,Hum.rec.anlog 20 units SQ HS 03/29/23 07/19/23 History [Lantus Solostar Pen] allopurinoL 100 mg PO QAM 03/29/23 07/19/23 History Prevagen Memory Supplement 1 dose PO DAILY 05/25/23 07/19/23 History Aspirin EC [Ecotrin Low Dose] 81 mg PO DAILY 07/19/23 07/19/23 History Calcium Carbonate/Vitamin D3 1 tab PO BID 07/19/23 07/19/23 History [Calcium 500 mg-Vit D3 5 mcg (200 Unit)] Cholecalciferol [Vitamin D3 (10 10 mcg PO DAILY 07/19/23 07/19/23 History Mcg = 400 Iu)] HYDROcodone/APAP 10-325MG [[place] 1 tab PO Q6H PRN 07/19/23 07/19/23 History 10-325] Lactulose [Constulose] 20 gm PO BID PRN 07/19/23 07/19/23 History Magnesium Oxide [Mag-Ox] 400 mg PO DAILY 07/19/23 07/19/23 History Melatonin 6 mg PO HS 07/19/23 07/19/23 History Rosuvastatin Calcium 5 mg PO DAILY 07/19/23 07/19/23 History Sennosides/Docusate Sodium [Senna 1 tab PO BID 07/19/23 07/19/23 History Plus 8.6-50 mg Tablet] Tacrolimus [Prograf] 2 mg PO HS 07/19/23 07/19/23 History Tacrolimus [Prograf] 3 mg PO DAILY 07/19/23 07/19/23 History Timolol Maleate/Pf [Timoptic 0.25% 1 drop BOTH EYES BID 07/19/23 07/19/23 History Ocudose] fentaNYL 25MCG/HR PATCH [Duragesic 1 patch TRANSDERM Q72H 07/19/23 07/19/23 History 25MCG/HR] hydrALAZINE HCL 75 mg PO TID 07/19/23 07/19/23 History Allergies Allergy/AdvReac Type Severity Reaction Status Date / Time Penicillins Allergy Unknown Verified 07/19/23 15:21 tromethamine Allergy Unknown Verified 07/19/23 15:21 hydrocodone AdvReac see comment Verified 07/19/23 15:21 morphine AdvReac see comment Verified 07/19/23 15:21 NSAIDS (Non-Steroidal AdvReac Increased Verified 07/19/23 15:21 Anti-Inflamma creatine kinase level oxycodone AdvReac see comment Verified 07/19/23 15:21 Surgical - Exam Vital Signs Temp Pulse Resp BP Pulse Ox 97.7 F 70 18 113/77 98 07/19/23 13:18 07/19/23 13:18 07/19/23 13:18 07/19/23 13:18 07/19/23 13:18 Results - Labs 08/01/23 04:20 08/01/23 04:20 Abnormal Lab Results - Last 24 Hours (Table) 07/31/23 07/31/23 07/31/23 Range/Units 11:41 11:46 16:59 WBC (3.8-10.6) k/uL RBC (4.30-5.90) m/uL Hgb (13.0-17.5) gm/dL Hct (39.0-53.0) % RDW (11.5-15.5) % Neutrophils # (1.3-7.7) k/uL Lymphocytes # (1.0-4.8) k/uL ABG pCO2 (35-45) mmHg ABG HCO3 (21-25) mmol/L ABG O2 Saturation (94-97) % Sodium (137-145) mmol/L Carbon Dioxide (22-30) mmol/L BUN (9-20) mg/dL Creatinine (0.66-1.25) mg/dL Glucose (74-99) mg/dL POC Glucose (mg/dL) 124 H 119 H 150 H (70-110) mg/dL Calcium (8.4-10.2) mg/dL Magnesium (1.6-2.3) mg/dL Total Bilirubin (0.2-1.3) mg/dL AST (17-59) U/L ALT (4-49) U/L Alkaline Phosphatase (38-126) U/L Total Protein (6.3-8.2) g/dL Albumin (3.5-5.0) g/dL 07/31/23 08/01/23 08/01/23 Range/Units 20:02 00:10 04:20 WBC 19.8 H (3.8-10.6) k/uL RBC 2.79 L (4.30-5.90) m/uL Hgb 8.3 L (13.0-17.5) gm/dL Hct 25.7 L (39.0-53.0) % RDW 16.1 H (11.5-15.5) % Neutrophils # 18.5 H (1.3-7.7) k/uL Lymphocytes # 0.5 L (1.0-4.8) k/uL ABG pCO2 (35-45) mmHg ABG HCO3 (21-25) mmol/L ABG O2 Saturation (94-97) % Sodium (137-145) mmol/L Carbon Dioxide (22-30) mmol/L BUN (9-20) mg/dL Creatinine (0.66-1.25) mg/dL Glucose (74-99) mg/dL POC Glucose (mg/dL) 133 H 148 H (70-110) mg/dL Calcium (8.4-10.2) mg/dL Magnesium (1.6-2.3) mg/dL Total Bilirubin (0.2-1.3) mg/dL AST (17-59) U/L ALT (4-49) U/L Alkaline Phosphatase (38-126) U/L Total Protein (6.3-8.2) g/dL Albumin (3.5-5.0) g/dL 08/01/23 08/01/23 08/01/23 Range/Units 04:20 04:22 04:50 WBC (3.8-10.6) k/uL RBC (4.30-5.90) m/uL Hgb (13.0-17.5) gm/dL Hct (39.0-53.0) % RDW (11.5-15.5) % Neutrophils # (1.3-7.7) k/uL Lymphocytes # (1.0-4.8) k/uL ABG pCO2 33 L (35-45) mmHg ABG HCO3 19 L (21-25) mmol/L ABG O2 Saturation 97.9 H (94-97) % Sodium 132 L (137-145) mmol/L Carbon Dioxide 16 L (22-30) mmol/L BUN 154 H* (9-20) mg/dL Creatinine 5.47 H (0.66-1.25) mg/dL Glucose 137 H (74-99) mg/dL POC Glucose (mg/dL) 155 H (70-110) mg/dL Calcium 7.8 L (8.4-10.2) mg/dL Magnesium 2.4 H (1.6-2.3) mg/dL Total Bilirubin 1.6 H (0.2-1.3) mg/dL AST 64 H (17-59) U/L ALT 106 H (4-49) U/L Alkaline Phosphatase 631 H (38-126) U/L Total Protein 4.7 L (6.3-8.2) g/dL Albumin 2.1 L (3.5-5.0) g/dL 08/01/23 Range/Units 08:05 WBC (3.8-10.6) k/uL RBC (4.30-5.90) m/uL Hgb (13.0-17.5) gm/dL Hct (39.0-53.0) % RDW (11.5-15.5) % Neutrophils # (1.3-7.7) k/uL Lymphocytes # (1.0-4.8) k/uL ABG pCO2 (35-45) mmHg ABG HCO3 (21-25) mmol/L ABG O2 Saturation (94-97) % Sodium (137-145) mmol/L Carbon Dioxide (22-30) mmol/L BUN (9-20) mg/dL Creatinine (0.66-1.25) mg/dL Glucose (74-99) mg/dL POC Glucose (mg/dL) 117 H (70-110) mg/dL Calcium (8.4-10.2) mg/dL Magnesium (1.6-2.3) mg/dL Total Bilirubin (0.2-1.3) mg/dL AST (17-59) U/L ALT (4-49) U/L Alkaline Phosphatase (38-126) U/L Total Protein (6.3-8.2) g/dL Albumin (3.5-5.0) g/dL Diabetes panel 08/01/23 Range/Units 04:20 Sodium 132 L (137-145) mmol/L Potassium 4.4 (3.5-5.1) mmol/L Chloride 98 (98-107) mmol/L Carbon Dioxide 16 L (22-30) mmol/L BUN 154 H* (9-20) mg/dL Creatinine 5.47 H (0.66-1.25) mg/dL Glucose 137 H (74-99) mg/dL Calcium 7.8 L (8.4-10.2) mg/dL AST 64 H (17-59) U/L ALT 106 H (4-49) U/L Alkaline Phosphatase 631 H (38-126) U/L Total Protein 4.7 L (6.3-8.2) g/dL Albumin 2.1 L (3.5-5.0) g/dL Calcium panel 08/01/23 Range/Units 04:20 Calcium 7.8 L (8.4-10.2) mg/dL Albumin 2.1 L (3.5-5.0) g/dL Pituitary panel 08/01/23 Range/Units 04:20 Sodium 132 L (137-145) mmol/L Potassium 4.4 (3.5-5.1) mmol/L Chloride 98 (98-107) mmol/L Carbon Dioxide 16 L (22-30) mmol/L BUN 154 H* (9-20) mg/dL Creatinine 5.47 H (0.66-1.25) mg/dL Glucose 137 H (74-99) mg/dL Calcium 7.8 L (8.4-10.2) mg/dL Adrenal panel 08/01/23 Range/Units 04:20 Sodium 132 L (137-145) mmol/L Potassium 4.4 (3.5-5.1) mmol/L Chloride 98 (98-107) mmol/L Carbon Dioxide 16 L (22-30) mmol/L BUN 154 H* (9-20) mg/dL Creatinine 5.47 H (0.66-1.25) mg/dL Glucose 137 H (74-99) mg/dL Calcium 7.8 L (8.4-10.2) mg/dL Total Bilirubin 1.6 H (0.2-1.3) mg/dL AST 64 H (17-59) U/L ALT 106 H (4-49) U/L Alkaline Phosphatase 631 H (38-126) U/L Total Protein 4.7 L (6.3-8.2) g/dL Albumin 2.1 L (3.5-5.0) g/dL
[2023-08-01 12:10] LABS: Glucose,Whole Blood 62 mg/dL (70-110)
[2023-08-01] MEDS: DEXTROSE 50% SYRINGE 50 ML IVP PRN (12:13)
[2023-08-01 12:34] LABS: Glucose,Whole Blood 107 mg/dL (70-110)
--- NOTE | 2023-08-01 13:27 | P.PN ---
Subjective Progress Note Date: 08/01/23 Principal diagnosis: Acute hypoxic respiratory failure secondary to cardiac arrest Progress Note Date: 07/30/23 72-year-old black male, who [facility], is seen in the emergency department, on July 18, for shortness of breath. The patient apparently has been having shortness of breath, since being discharged from [facility]. Recently, the patient was started on a fentanyl patch for back pain, but denies all other medications. He apparently was admitted at the other hospital, for total of 4 days according to his , and was found to have some lesions on his liver and lung. The patient is apparently awaiting an outpatient PET scan. He did see one of the cancer doctors at the other facility. Currently, the patient is seen in ER room 28. The patient is currently on BiPAP, with settings of 12/6 and 28%. According to his he has a history of liver and kidney transplantation. He is getting saline at 75 cc an hour. He apparently had a chest x-ray that was interpreted as normal, and a VQ scan that was interpreted as being very low probability for pulmonary embolism. He does not use oxygen at home. He quit smoking 43 years ago. He had a blood gas showing a pO2 of 124, pCO2 of 35, and a pH of 7.30. This is consistent with metabolic acidosis. His other medical history includes gastroesophageal reflux disease, hypertension, hyperlipidemia, liver kidney transplant at [facility] in 2015, diabetes, and gout. The patient is a former smoker, having quit some 43 years ago as mentioned above. Current labs include a white count of 16.2, hemoglobin 8.4, hematocrit 27.6, and a platelet count of 268,000. Sodium 126, potassium 5.2, chlorides 102, CO2 18, BUN 35, and creatinine 1.63. Calcium is 8.5. Glucose is 161. The patient has a nonanion gap metabolic acidosis, likely from his renal insufficiency/failure. The patient has a couple different chest x- rays, which did not show acute cardiopulmonary disease. 07/30/2023, no change in the patient's condition. Overnight, the patient became asynchronous with the mechanical ventilator and according to the patient was placed on propofol at 30 mcg/kg/min. He remains unresponsive. Progressive worsening renal function has been noted. The patient is currently on KVO IV fluids. Remains on the mechanical ventilator, assist-control mode with rate of 20, tidal volume of 450, FiO2 of 40% with a PEEP of 5. Blood gas showed pH of 7.37 with a pCO2 of 36 and pO2 of 119. No chest x-ray is available from today.Chest x-ray was noted. Hemoglobin is dropped also under 7 and the patient received a unit of packed RBC and hemoglobin is up to 8.1. White cell count is 16, sodium level is at 131 with a potassium level of 4.4, BUN is 127 with a creatinine of 4.1. Awaiting final pathology from the liver biopsy. High suspicion for carcinoma either of a GI source or lung. Favor the first. Remains on enteral feeding for nutritional support. He is currently on Nepro at rate of 41 cc an hour. Tolerating enteral feeding. No hypoglycemia. Reevaluated on 07/31/2023, patient remains in the ICU, intubated and mechanically ventilated. Patient was initially admitted on 07/18, he had a cardiac arrest on 07/20 requiring intubation mechanical ventilation. Remains intubated and mechani alexander ventilated, he is on assist-control rate of 20 tidal volume 450 FiO2 40% and PEEP of 5. ABG showed a pO2 of 147 pCO2 34 pH of 7.37 hence FiO2 Down to 35%. Liver biopsy report is still pending. Patient was found to have multiple liver lesions, and significantly elevated CA 199, hepatobiliary malignancy is being considered, pathology from liver biopsy is pending. Remains on fentanyl at 50 mcg every 4 hours, he is also on cefepime, patient is on propofol which I have started today, his creatinine is up to 4.64. Remains on Nepro 37/41. WBC count is 20.8 hemoglobin 8.4. Basic metabolic profile is normal BUN however is 137 creatinine 4.64. Chest x-ray is showing small right-sided pleural effusion and minimal areas of atelectasis. Doubt fully assess his neurological status today, patient grimaces only to deep painful stimuli. is at bedside, and she was updated on his condition, patient is presently DNR CODE STATUS Patient was evaluated today on 08/01/2023, remains in the ICU, intubated and mechanically ventilated. He is now on assist-control rate of 20 tidal volume 450 FiO2 35% and PEEP of 5. ABG showed a pO2 of 108 pCO2 33 pH of 7.36, hence I have made no changes in his ventilator settings. Patient remains on propofol at 15 mcg/kg/min, and today I recommended that we go further down on the propofol to address if there is any mental status change. Patient remains unresponsive to any stimuli, he could sometimes withdraw to deep painful stimuli only. Patient was intubated on 07/21, and apparently the certified technician convinced the family to have the patient started on hemodialysis. 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 That by itself alone makes the prognosis is extremely poor, and I am strongly recommending that we discussed with the family the issue of comfort care. At any rate I will discuss with the family later today the overall prognostic picture, and let them decide on what to do chest x-ray is showing right lower lobe atelectasis/consolidation, and scattered opacities in the left lung noted Objective - Vital Signs Vital signs: Vital Signs Temp 98.1 F 08/01/23 12:00 Pulse 70 08/01/23 12:00 Resp 19 08/01/23 12:00 BP 150/71 08/01/23 12:00 Pulse Ox 97 08/01/23 12:00 FiO2 35 08/01/23 12:00 Intake & Output 07/31/23 08/01/23 08/01/23 18:59 06:59 18:59 Intake Total 1081.074 638.430 178 Output Total 400 340 230 Balance 681.074 298.430 -52 Weight 97.6 kg 101.3 kg Intake: IV 416 173 178 0.9 240 Cefepime 1 gm In Sodium 50 50 100 Chloride 0.9% 50 ml @ 12. 5 mls/hr IVPB Q12HR MARCEL Rx#:[id number] Invasive Line 2 90 90 60 pressure bag 36 33 18 Intake, IV Titration 1.074 159.430 Amount propofoL 1,000 mg In 1.074 159.430 Empty Bag 1 bag @ 15 MCG/ KG/MIN 8.784 mls/hr IV . [id number] MARCEL Rx#:[id number] Tube Feeding 574 246 Other 90 60 Output: Urine 400 340 230 Other: Voiding Method Indwelling Catheter # Bowel Movements 0 1 ABP, PAP, CO, CI - Last Documented Arterial Blood Pressure 128/54 - Exam Physical exam: General: revealed a 72-year-old male, intubated, mechanically ventilated, not in distress. Withdraws only to deep painful stimuli. Head exam was generally normal. There was no scleral icterus or corneal arcus. Mucous membranes were moist. Tracheal tube and orogastric tube are intact. HEENT examination is grossly unremarkable. Moist mucous membranes. Neck supple. No neck masses, no JVD. Cardiovascular examination reveals distant S1-S2, no S3 gallop, no murmur. Lungs: Diminished breath sound bilaterally no rhonchi no wheezes. Symmetrical chest expansion. Abdomen soft bowel sounds are heard. No masses or tenderness. Extremities are intact. No cyanosis clubbing or edema. Skin is without rash or lesion. Neurologic pupils are sluggishly reactive to light, patient is unresponsive, grimaces only to deep painful stimuli - Labs CBC & Chem 7: 08/01/23 04:20 08/01/23 04:20 Labs: Abnormal Lab Results - Last 24 Hours (Table) 07/31/23 07/31/23 08/01/23 Range/Units 16:59 20:02 00:10 WBC (3.8-10.6) k/uL RBC (4.30-5.90) m/uL Hgb (13.0-17.5) gm/dL Hct (39.0-53.0) % RDW (11.5-15.5) % Neutrophils # (1.3-7.7) k/uL Lymphocytes # (1.0-4.8) k/uL ABG pCO2 (35-45) mmHg ABG HCO3 (21-25) mmol/L ABG O2 Saturation (94-97) % Sodium (137-145) mmol/L Carbon Dioxide (22-30) mmol/L BUN (9-20) mg/dL Creatinine (0.66-1.25) mg/dL Glucose (74-99) mg/dL POC Glucose (mg/dL) 150 H 133 H 148 H (70-110) mg/dL Calcium (8.4-10.2) mg/dL Magnesium (1.6-2.3) mg/dL Total Bilirubin (0.2-1.3) mg/dL AST (17-59) U/L ALT (4-49) U/L Alkaline Phosphatase (38-126) U/L Total Protein (6.3-8.2) g/dL Albumin (3.5-5.0) g/dL 08/01/23 08/01/23 08/01/23 Range/Units 04:20 04:20 04:22 WBC 19.8 H (3.8-10.6) k/uL RBC 2.79 L (4.30-5.90) m/uL Hgb 8.3 L (13.0-17.5) gm/dL Hct 25.7 L (39.0-53.0) % RDW 16.1 H (11.5-15.5) % Neutrophils # 18.5 H (1.3-7.7) k/uL Lymphocytes # 0.5 L (1.0-4.8) k/uL ABG pCO2 (35-45) mmHg ABG HCO3 (21-25) mmol/L ABG O2 Saturation (94-97) % Sodium 132 L (137-145) mmol/L Carbon Dioxide 16 L (22-30) mmol/L BUN 154 H* (9-20) mg/dL Creatinine 5.47 H (0.66-1.25) mg/dL Glucose 137 H (74-99) mg/dL POC Glucose (mg/dL) 155 H (70-110) mg/dL Calcium 7.8 L (8.4-10.2) mg/dL Magnesium 2.4 H (1.6-2.3) mg/dL Total Bilirubin 1.6 H (0.2-1.3) mg/dL AST 64 H (17-59) U/L ALT 106 H (4-49) U/L Alkaline Phosphatase 631 H (38-126) U/L Total Protein 4.7 L (6.3-8.2) g/dL Albumin 2.1 L (3.5-5.0) g/dL 08/01/23 08/01/23 08/01/23 Range/Units 04:50 08:05 12:08 WBC (3.8-10.6) k/uL RBC (4.30-5.90) m/uL Hgb (13.0-17.5) gm/dL Hct (39.0-53.0) % RDW (11.5-15.5) % Neutrophils # (1.3-7.7) k/uL Lymphocytes # (1.0-4.8) k/uL ABG pCO2 33 L (35-45) mmHg ABG HCO3 19 L (21-25) mmol/L ABG O2 Saturation 97.9 H (94-97) % Sodium (137-145) mmol/L Carbon Dioxide (22-30) mmol/L BUN (9-20) mg/dL Creatinine (0.66-1.25) mg/dL Glucose (74-99) mg/dL POC Glucose (mg/dL) 117 H 62 L (70-110) mg/dL Calcium (8.4-10.2) mg/dL Magnesium (1.6-2.3) mg/dL Total Bilirubin (0.2-1.3) mg/dL AST (17-59) U/L ALT (4-49) U/L Alkaline Phosphatase (38-126) U/L Total Protein (6.3-8.2) g/dL Albumin (3.5-5.0) g/dL Assessment and Plan Assessment: Impression: Cardiac arrest/PEA cardiac arrest. Associated with an episode of acute hypoglycemia. Requiring intubation and mechanical ventilation. Acute hypoxic respiratory failure secondary to cardiac arrest Multiple pulmonary nodules with abnormal findings on the liver and elevated CA 199, suspect underlying pancreatic malignancy with metastasis. History of kidney/liver transplantation in 2016 at the [facility] Chronic kidney disease posttransplantation with component of acute kidney injury on this admission. Acute on chronic kidney injury Multiple hepatic lesions, status post liver biopsy Acute brain injury/anoxic encephalopathy is suspected. History of seizures, presently on Vimpat and Keppra Acute transaminitis, improving since admission Benign essential hypertension Dyslipidemia GERD without esophagitis Acute left parietal and occipital CVA Metabolic acidosis secondary to acute on chronic kidney injury Recommendation: Continue ventilatory support Continue nutritional support Continue close follow-up on his neurological status and address with neurology on the case Pathology report from liver biopsy was noted and it is positive for adenocarcinoma, however exact primary is unknown could be GI, hepatobiliary, could be lungs, although I doubt lungs as primary considering the significantly elevated CA 199 and CEA Continue GI DVT prophylaxis Patient remains critically ill Continue IV cefepime empirically, Blood cultures and sputum cultures remain negative Nephrology is considering renal replacement therapy, however if family decides to go with comfort care, will cancel plans for hemodialysis. was updated on his condition at bedside, Prognosis is extremely poor and guarded. DNR CODE STATUS Will continue to follow Code care time is over 30 minutes Time with Patient: Greater than 30
--- NOTE | 2023-08-01 15:01 | P.PN ---
Subjective Progress Note Date: 08/01/23 The patient remains intubated, and on propofol. The renal function has been worsening, and apparently hemodialysis has been recommended if aggressive medical care is to be continued. No unusual bleeding or bruising. History obtained from the EMR, and nursing Objective - Vital Signs Vital signs: Vital Signs Temp 98.1 F 08/01/23 12:00 Pulse 70 08/01/23 14:00 Resp 18 08/01/23 14:00 BP 142/69 08/01/23 14:00 Pulse Ox 97 08/01/23 14:00 FiO2 35 08/01/23 12:00 Intake & Output 07/31/23 08/01/23 08/01/23 18:59 06:59 18:59 Intake Total 1081.074 638.430 224 Output Total 400 340 300 Balance 681.074 298.430 -76 Weight 97.6 kg 101.3 kg Intake: IV 416 173 184 0.9 240 Cefepime 1 gm In Sodium 50 50 100 Chloride 0.9% 50 ml @ 12. 5 mls/hr IVPB Q12HR [facility] Rx#:[id number] Invasive Line 2 90 90 60 pressure bag 36 33 24 Intake, IV Titration 1.074 159.430 Amount propofoL 1,000 mg In 1.074 159.430 Empty Bag 1 bag @ 15 MCG/ KG/MIN 8.784 mls/hr IV . [id number] [facility] Rx#:[id number] Tube Feeding 574 246 40 Other 90 60 Output: Urine 400 340 300 Other: Voiding Method Indwelling Catheter # Bowel Movements 0 1 ABP, PAP, CO, CI - Last Documented Arterial Blood Pressure 146/55 - Constitutional General appearance: Present: no acute distress - EENT EENT Comment(s): ET tube in situ. Eyes: Present: PERRLA - Respiratory Respiratory: bilateral: diminished - Cardiovascular Rhythm: regular Heart sounds: normal: S1, S2 - Gastrointestinal General gastrointestinal: Present: decreased bowel sounds, soft - Integumentary Integumentary: Present: normal - Neurologic Neurologic Comment(s): Sedated, on ventilator - Musculoskeletal Musculoskeletal: Present: generalized weakness - Labs CBC & Chem 7: 08/01/23 04:20 08/01/23 04:20 Labs: Abnormal Lab Results - Last 24 Hours (Table) 07/31/23 07/31/23 08/01/23 Range/Units 16:59 20:02 00:10 WBC (3.8-10.6) k/uL RBC (4.30-5.90) m/uL Hgb (13.0-17.5) gm/dL Hct (39.0-53.0) % RDW (11.5-15.5) % Neutrophils # (1.3-7.7) k/uL Lymphocytes # (1.0-4.8) k/uL ABG pCO2 (35-45) mmHg ABG HCO3 (21-25) mmol/L ABG O2 Saturation (94-97) % Sodium (137-145) mmol/L Carbon Dioxide (22-30) mmol/L BUN (9-20) mg/dL Creatinine (0.66-1.25) mg/dL Glucose (74-99) mg/dL POC Glucose (mg/dL) 150 H 133 H 148 H (70-110) mg/dL Calcium (8.4-10.2) mg/dL Magnesium (1.6-2.3) mg/dL Total Bilirubin (0.2-1.3) mg/dL AST (17-59) U/L ALT (4-49) U/L Alkaline Phosphatase (38-126) U/L Total Protein (6.3-8.2) g/dL Albumin (3.5-5.0) g/dL 08/01/23 08/01/23 08/01/23 Range/Units 04:20 04:20 04:22 WBC 19.8 H (3.8-10.6) k/uL RBC 2.79 L (4.30-5.90) m/uL Hgb 8.3 L (13.0-17.5) gm/dL Hct 25.7 L (39.0-53.0) % RDW 16.1 H (11.5-15.5) % Neutrophils # 18.5 H (1.3-7.7) k/uL Lymphocytes # 0.5 L (1.0-4.8) k/uL ABG pCO2 (35-45) mmHg ABG HCO3 (21-25) mmol/L ABG O2 Saturation (94-97) % Sodium 132 L (137-145) mmol/L Carbon Dioxide 16 L (22-30) mmol/L BUN 154 H* (9-20) mg/dL Creatinine 5.47 H (0.66-1.25) mg/dL Glucose 137 H (74-99) mg/dL POC Glucose (mg/dL) 155 H (70-110) mg/dL Calcium 7.8 L (8.4-10.2) mg/dL Magnesium 2.4 H (1.6-2.3) mg/dL Total Bilirubin 1.6 H (0.2-1.3) mg/dL AST 64 H (17-59) U/L ALT 106 H (4-49) U/L Alkaline Phosphatase 631 H (38-126) U/L Total Protein 4.7 L (6.3-8.2) g/dL Albumin 2.1 L (3.5-5.0) g/dL 08/01/23 08/01/23 08/01/23 Range/Units 04:50 08:05 12:08 WBC (3.8-10.6) k/uL RBC (4.30-5.90) m/uL Hgb (13.0-17.5) gm/dL Hct (39.0-53.0) % RDW (11.5-15.5) % Neutrophils # (1.3-7.7) k/uL Lymphocytes # (1.0-4.8) k/uL ABG pCO2 33 L (35-45) mmHg ABG HCO3 19 L (21-25) mmol/L ABG O2 Saturation 97.9 H (94-97) % Sodium (137-145) mmol/L Carbon Dioxide (22-30) mmol/L BUN (9-20) mg/dL Creatinine (0.66-1.25) mg/dL Glucose (74-99) mg/dL POC Glucose (mg/dL) 117 H 62 L (70-110) mg/dL Calcium (8.4-10.2) mg/dL Magnesium (1.6-2.3) mg/dL Total Bilirubin (0.2-1.3) mg/dL AST (17-59) U/L ALT (4-49) U/L Alkaline Phosphatase (38-126) U/L Total Protein (6.3-8.2) g/dL Albumin (3.5-5.0) g/dL Assessment and Plan Plan: Metastatic adenocarcinoma the patient's pathology report has been formalized as poorly differentiated non-small cell carcinoma, with adenocarcinoma favored. Possible primary sites are difficult to isolate, but include upper GI, lung, bladder and breast. - The preliminary of this report was verbally discussed with the pathologist on 07/29/23. The above diagnosis, and implications were discussed in detail with the patient's and his family. They were advised that regardless of the specific primary site, within the above differentials, his cancer is not cu rable. Treatment with palliative intent In the ideal situation could potentially prolong life and improve symptoms. However the patient is obviously not a candidate for any cancer specific treatment in his current situation. His compromised medical condition at this time is actually due to other medical problems not directly related to his malignancy. His progress, despite very aggressive medical care, has been poor. Therefore, in this situation, it is felt to be highly unlikely that the patient would improve enough to where his performance status is deemed adequate even have any cancer specific treatment. - Based on the above, we had recommended strongly to the family that his CODE ST ATUS be changed to no code, and also advised him that it would be very reasonable to consider comfort care, If [facility] and other consultants did not feel it likely that there would be a major improvement in in his condition in a reasonable for of time. The latter definitely does not seem to be the case. Therefore from the oncology standpoint it is reiterated that consideration of comfort care appears to be very reasonable at this time.
[2023-08-01 15:51] LABS: Glucose,Whole Blood 71 mg/dL (70-110)
--- NOTE | 2023-08-01 16:18 | P.PN ---
Subjective Progress Note Date: 08/01/23 Patient is a 59-year-old male with BPH, carotid stenosis, cirrhosis, diabetes, end-stage renal disease status post renal and liver transplant no longer requiring hemodialysis, glaucoma, hypertension, and multiple other comorbid conditions who presented to the emergency department with complaints of shortness of breath. Patient had recently been at an outside hospital for abdominal and back pain they are workup revealed lesions in his liver, kidney, and lung and he was requiring Dilaudid [id number] for pain. He was discharged on a fentanyl patch with a PET scan scheduled for July with Dr. Wise. In the emergency department here he was noted to have a white blood cell count of 16, sodium 124, BUN 30, creatinine 1.76 (baseline creatinine 2), AST 241, ALT 153, alkaline phosphatase 669, and a D-dimer of 18.53. Patient was admitted with concerns for possible pulmonary embolism and he was started on Lovenox. He subsequently underwent a ventilation/perfusion scan which demonstra mynor low probability for pulmonary embolism. He underwent echocardiogram which demonstrated ejection fraction of 55 to 60% with mild aortic stenosis. Renal and bladder ultrasound demonstrated hepatic metastatic disease with transplanted kidneys and atrophic [place] kidneys. Oncology was consulted. They recommended continuing pain control considering additional imaging and IR consultation. Patient was noted to have change in mentation and therefore underwent a CT of the head which demonstrated no acute intracranial process. He then became hypoxic requiring high flow nasal cannula and ultimately BiPAP. Pulmonary was consulted and added bronchodilators. On the morning of 07/21 patient was undergoing a BiPAP weaning trial when he lost pulses and CPR was initiated. He had ROSC after 2 rounds of epinephrine however his mental status did not improve and he was subsequently intubated and transferred to the ICU. He required norepinephrine for less than 24 hours. Infectious disease was consulted he recommended adding cefepime while awaiting cultures to finalize. Nephrology was consulted who recommended holding CellCept and continuing tacrolimus and prednisone. His Tacro was then held. Patient became bradycardiac overnight on 07/24 and cardio was consulted and the patient was started on a dobutamine gtt. Patient developed seizures early on the morning of 07/26/23 and was given Ativan from critical care with resolution of seizure-like activity. Neurology was consulted. CT brain was ordered and patient was loaded with Keppra. He underwent liver biopsy on 07/26/23. He continued to struggle with being obtunded despite discontinuation of propofol. He underwent repeat EEG which demonstrated seizure-like activity he was started on lacosamide in addition to the Keppra he had already been placed on. He underwent head CT which showed significant left-sided watershed territory stroke as well as frontal lobe territory stroke. His kidney function continued to decline and he had an additional drop in hemoglobin requiring 2 and 1 unit of packed red blood cells. On 07/29 family changed patient's CODE STATUS to DNR. They will be considering comfort care. Pathology demonstrated m etastatic adeno arcinoma. Patient seen and examined at bedside. Patient with bright red blood per rectum overnight. Remain on vent Vital signs reviewed General: Ill apperaing, no distress, appears at stated age Cardiovascular: S1S2 reg, no murmur Lungs: CTA bilateral, no rhonchi, no rales, no accessory muscle use Abdominal: Soft, nontender to palpation, no guarding Ext: No gross muscle atrophy, no edema b/l lower extremities, no contractures Neuro:Sedated on vent Psych: Sedated on vent Assessment/Plan: S/P Cardiac arrest Multiple lung and liver nodules due to metastatic poorly differentiated non- small cell carcinoma favoring adenocarcinoma Intractable pain likely related to malignancy Acute hypoxic respiratory failure Transaminitis suspect secondary to liver lesions versus hepatitis C Probable pneumonia with septic shock (resolved) -Oncology recommendations reviewed: Metastatic adenocarcinoma, consider comfort care measures. -Critical care notes reviewed: Prognosis poor. updated at bedside. Continue with cefepime. - ID recs reviewed: continue ABX -Cefepime 2 g IV piggyback twice daily D # 11 - off solucortef -Hold Lipitor due to elevated liver enzymes -Fentanyl 75 mcg patch has been continued. W -DuoNebs every 4 hours and as needed Seizures Right Frontal and Left parietal and occipital lobe likely represent watershed infarcts, discussed these findings with Neurology Acute encephalopathy, possible anoxic -Neurology recs apprecaited -Keppra 500 mg every 12 hours, lacosamide 100mg IV BID -Ideally patient would undergo MRI of able to come off of vent Bright red blood per rectum -General surgery consult reviewed: Bright red blood per rectum on abdominal no plan for endoscopies at this time okay to resume tube feeds Episodes of complete heart block with unclear etiology NSTEMI- Type II - Off coreg -Cardiology following as needed - off coreg - no onger requiring dopamine - repeat echo with EF 65-60% Chronic kidney disease stage III status post renal and liver transplant Hyponatremia, possible SIADH Metabolic acidosis Hyperkalemia, resolved -Lasix 80 mg IV push every 12 hours -Nephrology note reviewed: Continue IV Lasix, stop Solu-Cortef and start prednisone 40 mg once daily. Continue to hold CellCept. Prograf 2 mg twice daily. Will consider renal replacement therapy if family wants to continue with aggressive measures. - Hold cell cept - Prednisone 40 mg daily - Tacro 2 mg BID -Continue to follow renal function -PhosLo 675 twice daily - Sodium bicarb 650 mg 3 times daily Normocytic anemia -Follow CBC -No indication for transfusion at this time Diabetes mellitus type 2 with episodes of hypoglycemia - NovoLog fixed dose stopped with decreased BP -sliding scale every 4 hours - Levemir to 15 units once daily -Follow blood sugars Chronic conditions BPH Carotid stenosis Hepatitis C Hypertension Dyslipidemia Osteoarthritis Vitamin D deficiency Pulmonary embolism ruled out Poor over all prognosis Imaging: Worsening patchy infiltrate right base and throughout the left lung Data Review: Labs reviewed from today include CBC, CMP, and ABG which are remarkable for white blood cell count 19.8, hemoglobin 8.3, sodium 132, BUN 154, creatinine 5.47, bilirubin 1.6, AST 64, ALT 106, alkaline phosphatase 631 DVT prophylaxis: Lovenox Anticipated discharge date: Pending Clinical Course Anticipated discharge place: Pending Clinical Course This dictation was prepared using Rad voice recognition software. Though every attempt is made to correct errors during dictation some may still exist. Objective - Vital Signs Vital signs: Vital Signs Temp 97.9 F 08/01/23 04:00 Pulse 73 08/01/23 07:00 Resp 20 08/01/23 07:00 BP 132/64 08/01/23 07:00 Pulse Ox 100 08/01/23 07:00 FiO2 35 08/01/23 04:00 Intake & Output 07/31/23 08/01/23 08/01/23 18:59 06:59 18:59 Intake Total 1081.074 638.430 3 Output Total 400 340 45 Balance 681.074 298.430 -42 Weight 97.6 kg 101.3 kg Intake: IV 416 173 3 0.9 240 Cefepime 1 gm In Sodium 50 50 Chloride 0.9% 50 ml @ 12. 5 mls/hr IVPB Q12HR [facility] Rx#:[id number] Invasive Line 2 90 90 pressure bag 36 33 3 Intake, IV Titration 1.074 159.430 Amount propofoL 1,000 mg In 1.074 159.430 Empty Bag 1 bag @ 15 MCG/ KG/MIN 8.784 mls/hr IV . [id number] [facility] Rx#:[id number] Tube Feeding 574 246 Other 90 60 Output: Urine 400 340 45 Other: Voiding Method Indwelling Catheter # Bowel Movements 0 1 ABP, PAP, CO, CI - Last Documented Arterial Blood Pressure 127/54 - Labs CBC & Chem 7: 08/01/23 04:20 08/01/23 04:20 Labs: Abnormal Lab Results - Last 24 Hours (Table) 07/31/23 07/31/23 07/31/23 Range/Units 07:51 11:41 11:46 WBC (3.8-10.6) k/uL RBC (4.30-5.90) m/uL Hgb (13.0-17.5) gm/dL Hct (39.0-53.0) % RDW (11.5-15.5) % Neutrophils # (1.3-7.7) k/uL Lymphocytes # (1.0-4.8) k/uL ABG pCO2 (35-45) mmHg ABG HCO3 (21-25) mmol/L ABG O2 Saturation (94-97) % Sodium (137-145) mmol/L Carbon Dioxide (22-30) mmol/L BUN (9-20) mg/dL Creatinine (0.66-1.25) mg/dL Glucose (74-99) mg/dL POC Glucose (mg/dL) 173 H 124 H 119 H (70-110) mg/dL Calcium (8.4-10.2) mg/dL Magnesium (1.6-2.3) mg/dL Total Bilirubin (0.2-1.3) mg/dL AST (17-59) U/L ALT (4-49) U/L Alkaline Phosphatase (38-126) U/L Total Protein (6.3-8.2) g/dL Albumin (3.5-5.0) g/dL 07/31/23 07/31/23 08/01/23 Range/Units 16:59 20:02 00:10 WBC (3.8-10.6) k/uL RBC (4.30-5.90) m/uL Hgb (13.0-17.5) gm/dL Hct (39.0-53.0) % RDW (11.5-15.5) % Neutrophils # (1.3-7.7) k/uL Lymphocytes # (1.0-4.8) k/uL ABG pCO2 (35-45) mmHg ABG HCO3 (21-25) mmol/L ABG O2 Saturation (94-97) % Sodium (137-145) mmol/L Carbon Dioxide (22-30) mmol/L BUN (9-20) mg/dL Creatinine (0.66-1.25) mg/dL Glucose (74-99) mg/dL POC Glucose (mg/dL) 150 H 133 H 148 H (70-110) mg/dL Calcium (8.4-10.2) mg/dL Magnesium (1.6-2.3) mg/dL Total Bilirubin (0.2-1.3) mg/dL AST (17-59) U/L ALT (4-49) U/L Alkaline Phosphatase (38-126) U/L Total Protein (6.3-8.2) g/dL Albumin (3.5-5.0) g/dL 08/01/23 08/01/23 08/01/23 Range/Units 04:20 04:20 04:22 WBC 19.8 H (3.8-10.6) k/uL RBC 2.79 L (4.30-5.90) m/uL Hgb 8.3 L (13.0-17.5) gm/dL Hct 25.7 L (39.0-53.0) % RDW 16.1 H (11.5-15.5) % Neutrophils # 18.5 H (1.3-7.7) k/uL Lymphocytes # 0.5 L (1.0-4.8) k/uL ABG pCO2 (35-45) mmHg ABG HCO3 (21-25) mmol/L ABG O2 Saturation (94-97) % Sodium 132 L (137-145) mmol/L Carbon Dioxide 16 L (22-30) mmol/L BUN 154 H* (9-20) mg/dL Creatinine 5.47 H (0.66-1.25) mg/dL Glucose 137 H (74-99) mg/dL POC Glucose (mg/dL) 155 H (70-110) mg/dL Calcium 7.8 L (8.4-10.2) mg/dL Magnesium 2.4 H (1.6-2.3) mg/dL Total Bilirubin 1.6 H (0.2-1.3) mg/dL AST 64 H (17-59) U/L ALT 106 H (4-49) U/L Alkaline Phosphatase 631 H (38-126) U/L Total Protein 4.7 L (6.3-8.2) g/dL Albumin 2.1 L (3.5-5.0) g/dL 08/01/23 Range/Units 04:50 WBC (3.8-10.6) k/uL RBC (4.30-5.90) m/uL Hgb (13.0-17.5) gm/dL Hct (39.0-53.0) % RDW (11.5-15.5) % Neutrophils # (1.3-7.7) k/uL Lymphocytes # (1.0-4.8) k/uL ABG pCO2 33 L (35-45) mmHg ABG HCO3 19 L (21-25) mmol/L ABG O2 Saturation 97.9 H (94-97) % Sodium (137-145) mmol/L Carbon Dioxide (22-30) mmol/L BUN (9-20) mg/dL Creatinine (0.66-1.25) mg/dL Glucose (74-99) mg/dL POC Glucose (mg/dL) (70-110) mg/dL Calcium (8.4-10.2) mg/dL Magnesium (1.6-2.3) mg/dL Total Bilirubin (0.2-1.3) mg/dL AST (17-59) U/L ALT (4-49) U/L Alkaline Phosphatase (38-126) U/L Total Protein (6.3-8.2) g/dL Albumin (3.5-5.0) g/dL
[2023-08-01 17:51] LABS: Glucose,Whole Blood 79 mg/dL (70-110)
[2023-08-01 20:02] LABS: Glucose,Whole Blood 98 mg/dL (70-110)
[2023-08-02 00:17] LABS: Glucose,Whole Blood 117 mg/dL (70-110)
[2023-08-02 04:12] LABS: Glucose,Whole Blood 138 mg/dL (70-110)
[2023-08-02 04:24] LABS: Anisocytosis Slight; HCT 25.4 % (39.0-53.0); MCH 28.9 pg (25.0-35.0); MCHC 31.6 g/dL (31.0-37.0); MCV 91.4 fL (80.0-100.0); Mean Platelet Volume 9.2; Platelet Count 178 k/uL (150-450); RBC 2.78 m/uL (4.30-5.90); WBC 24.4 k/uL (3.8-10.6)
[2023-08-02 04:40] LABS: African American GFR (CKD) 10 (>60 ml/min/1.73 sqM); Anion Gap 18 mmol/L; Calcium 7.6 mg/dL (8.4-10.2); Carbon Dioxide 16 mmol/L (22-30); Chloride 98 mmol/L (98-107); Glucose 122 mg/dL (74-99); Magnesium 2.5 mg/dL (1.6-2.3); Non-African American GFR(CKD) 9 (>60 ml/min/1.73 sqM); Potassium 4.4 mmol/L (3.5-5.1); Sodium 132 mmol/L (137-145)
[2023-08-02 04:48] LABS: Blood Urea Nitrogen 166 mg/dL (9-20)
[2023-08-02 04:52] LABS: ABG Base Excess -6.5 mmol/L; ABG HCO3 19 mmol/L (21-25); ABG Oxygen Saturation 97.1 % (94-97); ABG PCO2 34 mmHg (35-45); ABG PH 7.36 (7.35-7.45); ABG PO2 94 mmHg (83-108); ABG TCO2 20 mmol/L (19-24)
[2023-08-02 05:31] LABS: Allen Test Performed? no
[2023-08-02] MEDS: INSULIN DETEMIR (LEVEMIR) 100 UNIT/ML SYR SQ SCH (07:15)
[2023-08-02 08:52] LABS: Glucose,Whole Blood 170 mg/dL (70-110)
--- NOTE | 2023-08-02 09:34 | XR ---
EXAMINATION TYPE: XR chest 1V portable DATE OF EXAM: 08/02/2023 COMPARISON: 08/01/2023 HISTORY: Shortness of breath TECHNIQUE: Single frontal view of the chest is obtained. FINDINGS: ET tube approximately 1.7 cm above divine. There are multiple left-sided central lines one of which likely represents Mediport. NG tube appears within the stomach. There is a large calcified granuloma overlying the right upper abdomen. Persistent bilateral infiltrate and small right effusion . No pneumothorax. Limited inspiration. Heart size stable. Atherosclerotic changes aorta. Left-sided subsegmental infiltrate stable. IMPRESSION: Bilateral infiltrate and small right effusion is stable.
[2023-08-02] MEDS: ENOXAPARIN 40 MG/0.4 ML SYRINGE SQ SCH (10:28)
--- NOTE | 2023-08-02 11:34 | P.PN ---
Subjective Progress Note Date: 08/02/23 Principal diagnosis: Acute hypoxic respiratory failure secondary to cardiac arrest Progress Note Date: 07/30/23 72-year-old black male, who [facility], is seen in the emergency department, on July 18, for shortness of breath. The patient apparently has been having shortness of breath, since being discharged from [facility]. Recently, the patient was started on a fentanyl patch for back pain, but denies all other medications. He apparently was admitted at the other hospital, for total of 4 days according to his , and was found to have some lesions on his liver and lung. The patient is apparently awaiting an outpatient PET scan. He did see one of the cancer doctors at the other facility. Currently, the patient is seen in ER room 28. The patient is currently on BiPAP, with settings of 12/6 and 28%. According to his he has a history of liver and kidney transplantation. He is getting saline at 75 cc an hour. He apparently had a chest x-ray that was interpreted as normal, and a VQ scan that was interpreted as being very low probability for pulmonary embolism. He does not use oxygen at home. He quit smoking 43 years ago. He had a blood gas showing a pO2 of 124, pCO2 of 35, and a pH of 7.30. This is consistent with metabolic acidosis. His other medical history includes gastroesophageal reflux disease, hypertension, hyperlipidemia, liver kidney transplant at [facility] in 2015, diabetes, and gout. The patient is a former smoker, having quit some 43 years ago as mentioned above. Current labs include a white count of 16.2, hemoglobin 8.4, hematocrit 27.6, and a platelet count of 268,000. Sodium 126, potassium 5.2, chlorides 102, CO2 18, BUN 35, and creatinine 1.63. Calcium is 8.5. Glucose is 161. The patient has a nonanion gap metabolic acidosis, likely from his renal insufficiency/failure. The patient has a couple different chest x- rays, which did not show acute cardiopulmonary disease. 07/30/2023, no change in the patient's condition. Overnight, the patient became asynchronous with the mechanical ventilator and according to the patient was placed on propofol at 30 mcg/kg/min. He remains unresponsive. Progressive worsening renal function has been noted. The patient is currently on KVO IV fluids. Remains on the mechanical ventilator, assist-control mode with rate of 20, tidal volume of 450, FiO2 of 40% with a PEEP of 5. Blood gas showed pH of 7.37 with a pCO2 of 36 and pO2 of 119. No chest x-ray is available from today.Chest x-ray was noted. Hemoglobin is dropped also under 7 and the patient received a unit of packed RBC and hemoglobin is up to 8.1. White cell count is 16, sodium level is at 131 with a potassium level of 4.4, BUN is 127 with a creatinine of 4.1. Awaiting final pathology from the liver biopsy. High suspicion for carcinoma either of a GI source or lung. Favor the first. Remains on enteral feeding for nutritional support. He is currently on Nepro at rate of 41 cc an hour. Tolerating enteral feeding. No hypoglycemia. Reevaluated on 07/31/2023, patient remains in the ICU, intubated and mechanically ventilated. Patient was initially admitted on 07/18, he had a cardiac arrest on 07/20 requiring intubation mechanical ventilation. Remains intubated and mechani alexander ventilated, he is on assist-control rate of 20 tidal volume 450 FiO2 40% and PEEP of 5. ABG showed a pO2 of 147 pCO2 34 pH of 7.37 hence FiO2 Down to 35%. Liver biopsy report is still pending. Patient was found to have multiple liver lesions, and significantly elevated CA 199, hepatobiliary malignancy is being considered, pathology from liver biopsy is pending. Remains on fentanyl at 50 mcg every 4 hours, he is also on cefepime, patient is on propofol which I have started today, his creatinine is up to 4.64. Remains on Nepro 37/41. WBC count is 20.8 hemoglobin 8.4. Basic metabolic profile is normal BUN however is 137 creatinine 4.64. Chest x-ray is showing small right-sided pleural effusion and minimal areas of atelectasis. Doubt fully assess his neurological status today, patient grimaces only to deep painful stimuli. is at bedside, and she was updated on his condition, patient is presently DNR CODE STATUS Patient was evaluated today on 08/01/2023, remains in the ICU, intubated and mechanically ventilated. He is now on assist-control rate of 20 tidal volume 450 FiO2 35% and PEEP of 5. ABG showed a pO2 of 108 pCO2 33 pH of 7.36, hence I have made no changes in his ventilator settings. Patient remains on propofol at 15 mcg/kg/min, and today I recommended that we go further down on the propofol to address if there is any mental status change. Patient remains unresponsive to any stimuli, he could sometimes withdraw to deep painful stimuli only. Patient was intubated on 07/21, and apparently the civil engineer land development convinced the family to have the patient started on hemodialysis. 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 That by itself alone makes the prognosis is extremely poor, and I am strongly recommending that we discussed with the family the issue of comfort care. At any rate I will discuss with the family later today the overall prognostic picture, and let them decide on what to do chest x-ray is showing right lower lobe atelectasis/consolidation, and scattered opacities in the left lung noted Patient was reevaluated today on 08/02/2023, patient remains in the ICU, intubated mechanically ventilated, he is on assist-control rate of 20 tidal volume 450 FiO2 35% and PEEP of 5 ABG showed a pO2 of 94 pCO2 34 pH of 7.36. Remains on propofol at 15 mcg/kg/min, receiving Nepro at 4 1 mL/h, patient is noted to be hypertensive, may place the patient on Cleviprex, but I recommended increasing the dose of propofol before going to Cleviprex. Renal functioning is worse with a BUN of 166 creatinine 6.01, yesterday I had a long discussion with all his family members including his and brother at bedside, and discussed the overall prognostic picture, family agreed to go with comfort care measures howev er they do not want to start the process until Monday because of family commitments. At any rate patient remains DNR, he is definitely critically ill, and I do not see the value of hemodialysis on this patient since we are considering comfort care measures in the next 48 hours. Chest x-ray continues to show bilateral infiltrates and small right-sided pleural effusion, stable, no major change labs reviewed WBC count is 24.4 hemoglobin is 8 basic metabolic profile is normal bicarb is 16 BUN 166 creatinine 6.01. Objective - Vital Signs Vital signs: Vital Signs Temp 98.8 F 08/02/23 08:00 Pulse 86 08/02/23 11:00 Resp 25 H 08/02/23 11:00 BP 111/59 08/02/23 11:00 Pulse Ox 97 08/02/23 11:00 FiO2 35 08/02/23 08:52 Intake & Output 08/01/23 08/02/23 08/02/23 18:59 06:59 18:59 Intake Total 874.801 2878.453 362.498 Output Total 470 698 240 Balance -4.842 304.453 122.498 Weight 101.8 kg Intake: IV 226 346 154 0.9 120 40 Cefepime 1 gm In Sodium 100 100 75 Chloride 0.9% 50 ml @ 12. 5 mls/hr IVPB Q12HR [facility] Rx#:[id number] Invasive Line 2 90 90 30 pressure bag 36 36 9 Intake, IV Titration 89.158 95.453 85.498 Amount propofoL 1,000 mg In 89.158 95.453 85.498 Empty Bag 1 bag @ 15 MCG/ KG/MIN 8.784 mls/hr IV . [id number] [facility] Rx#:[id number] Tube Feeding 150 471 123 Other 90 Output: Urine 470 698 240 Other: Voiding Method Indwelling Catheter Indwelling Catheter # Bowel Movements 1 ABP, PAP, CO, CI - Last Documented Arterial Blood Pressure 138/52 - Exam Physical exam: General: revealed a 72-year-old male, intubated, mechanically ventilated, not in distress. Patient is unresponsive to any stimuli. Head exam was generally normal. There was no scleral icterus or corneal arcus. Mucous membranes were moist. Tracheal tube and orogastric tube are intact. HEENT examination is grossly unremarkable. Moist mucous membranes. Neck supple. No neck masses, no JVD. Cardiovascular examination reveals distant S1-S2, no S3 gallop, no murmur. Lungs: Diminished breath sound bilaterally no rhonchi no wheezes. Symmetrical chest expansion. Abdomen soft bowel sounds are heard. No masses or tenderness. Extremities are intact. No cyanosis clubbing or edema. Skin is without rash or lesion. Neurologic pupils are sluggishly reactive to light, patient remains unresponsive - Labs CBC & Chem 7: 08/02/23 04:08 08/02/23 04:08 Labs: Abnormal Lab Results - Last 24 Hours (Table) 07/31/23 08/01/23 08/02/23 Range/Units 04:46 12:08 00:15 WBC (3.8-10.6) k/uL RBC (4.30-5.90) m/uL Hgb (13.0-17.5) gm/dL Hct (39.0-53.0) % RDW (11.5-15.5) % ABG pCO2 (35-45) mmHg ABG HCO3 (21-25) mmol/L ABG O2 Saturation (94-97) % Sodium (137-145) mmol/L Carbon Dioxide (22-30) mmol/L BUN (9-20) mg/dL Creatinine (0.66-1.25) mg/dL Glucose (74-99) mg/dL POC Glucose (mg/dL) 62 L 117 H (70-110) mg/dL Calcium (8.4-10.2) mg/dL Phosphorus (2.5-4.5) mg/dL Magnesium (1.6-2.3) mg/dL Tacrolimus 1.8 L (5.0-20.0) ng/mL 08/02/23 08/02/23 08/02/23 Range/Units 04:08 04:08 04:11 WBC 24.4 H (3.8-10.6) k/uL RBC 2.78 L (4.30-5.90) m/uL Hgb 8.0 L (13.0-17.5) gm/dL Hct 25.4 L (39.0-53.0) % RDW 16.0 H (11.5-15.5) % ABG pCO2 (35-45) mmHg ABG HCO3 (21-25) mmol/L ABG O2 Saturation (94-97) % Sodium 132 L (137-145) mmol/L Carbon Dioxide 16 L (22-30) mmol/L BUN 166 H* (9-20) mg/dL Creatinine 6.01 H (0.66-1.25) mg/dL Glucose 122 H (74-99) mg/dL POC Glucose (mg/dL) 138 H (70-110) mg/dL Calcium 7.6 L (8.4-10.2) mg/dL Phosphorus 12.0 H* (2.5-4.5) mg/dL Magnesium 2.5 H (1.6-2.3) mg/dL Tacrolimus (5.0-20.0) ng/mL 08/02/23 08/02/23 Range/Units 04:52 08:51 WBC (3.8-10.6) k/uL RBC (4.30-5.90) m/uL Hgb (13.0-17.5) gm/dL Hct (39.0-53.0) % RDW (11.5-15.5) % ABG pCO2 34 L (35-45) mmHg ABG HCO3 19 L (21-25) mmol/L ABG O2 Saturation 97.1 H (94-97) % Sodium (137-145) mmol/L Carbon Dioxide (22-30) mmol/L BUN (9-20) mg/dL Creatinine (0.66-1.25) mg/dL Glucose (74-99) mg/dL POC Glucose (mg/dL) 170 H (70-110) mg/dL Calcium (8.4-10.2) mg/dL Phosphorus (2.5-4.5) mg/dL Magnesium (1.6-2.3) mg/dL Tacrolimus (5.0-20.0) ng/mL Assessment and Plan Assessment: Impression: Cardiac arrest/PEA cardiac arrest. Associated with an episode of acute hypoglycemia. Requiring intubation and mechanical ventilation. Acute hypoxic respiratory failure secondary to cardiac arrest Multiple pulmonary nodules with abnormal findings on the liver and elevated CA 199, suspect underlying pancreatic malignancy with metastasis. History of kidney/liver transplantation in 2016 at the [facility] Chronic kidney disease posttransplantation with component of acute kidney injury on this admission. Acute on chronic kidney injury Multiple hepatic lesions, status post liver biopsy Acute brain injury/anoxic encephalopathy is suspected. History of seizures, presently on Vimpat and Keppra Acute transaminitis, improving since admission Benign essential hypertension Dyslipidemia GERD without esophagitis Acute left parietal and occipital CVA Metabolic acidosis secondary to acute on chronic kidney injury Recommendation: Yesterday I had a long discussion with most of the family members, and the plan was to eventually go to comfort care measures, however family is not planning to proceed with comfort care measures until next Monday. In the meantime: Continue ventilatory support Continue nutritional support Continue close follow-up on his neurological status and address with neurology on the case, I do not believe the patient will need hemodialysis considering we are proceeding with comfort care measures in the next 48 hours Updated the family on his liver biopsy which I reviewed with the family y . Continue GI DVT prophylaxis Patient remains critically ill Continue antibiotics Prognosis is extremely poor DNR CODE STATUS Will continue to follow Code care time is over 30 minutes Time with Patient: Greater than 30
--- NOTE | 2023-08-02 11:41 | P.PN ---
Subjective Patient is seen in follow-up for acute kidney injury on chronic kidney disease. Renal function continues to worsen. Urine output 40-60 cc an hour. On IV Lasix. Receiving tube feeds. Intubated. Vital signs are stable. General: Resting in bed. HEENT: Intubated. LUNGS: Scattered rhonchi. HEART: Rate and Rhythm are regular. ABDOMEN: Obese. EXTREMITITES: 2+ edema. Objective - Vital Signs Vital signs: Vital Signs Temp 98.8 F 08/02/23 08:00 Pulse 86 08/02/23 11:00 Resp 25 H 08/02/23 11:00 BP 111/59 08/02/23 11:00 Pulse Ox 97 08/02/23 11:00 FiO2 35 08/02/23 08:52 Intake & Output 08/01/23 08/02/23 08/02/23 18:59 06:59 18:59 Intake Total 284.399 6507.453 362.498 Output Total 470 698 240 Balance -4.842 304.453 122.498 Weight 101.8 kg Intake: IV 226 346 154 0.9 120 40 Cefepime 1 gm In Sodium 100 100 75 Chloride 0.9% 50 ml @ 12. 5 mls/hr IVPB Q12HR [facility] Rx#:[id number] Invasive Line 2 90 90 30 pressure bag 36 36 9 Intake, IV Titration 89.158 95.453 85.498 Amount propofoL 1,000 mg In 89.158 95.453 85.498 Empty Bag 1 bag @ 15 MCG/ KG/MIN 8.784 mls/hr IV . [id number] [facility] Rx#:[id number] Tube Feeding 150 471 123 Other 90 Output: Urine 470 698 240 Other: Voiding Method Indwelling Catheter Indwelling Catheter # Bowel Movements 1 ABP, PAP, CO, CI - Last Documented Arterial Blood Pressure 138/52 - Labs CBC & Chem 7: 08/02/23 04:08 08/02/23 04:08 Labs: Abnormal Lab Results - Last 24 Hours (Table) 07/31/23 08/01/23 08/02/23 Range/Units 04:46 12:08 00:15 WBC (3.8-10.6) k/uL RBC (4.30-5.90) m/uL Hgb (13.0-17.5) gm/dL Hct (39.0-53.0) % RDW (11.5-15.5) % ABG pCO2 (35-45) mmHg ABG HCO3 (21-25) mmol/L ABG O2 Saturation (94-97) % Sodium (137-145) mmol/L Carbon Dioxide (22-30) mmol/L BUN (9-20) mg/dL Creatinine (0.66-1.25) mg/dL Glucose (74-99) mg/dL POC Glucose (mg/dL) 62 L 117 H (70-110) mg/dL Calcium (8.4-10.2) mg/dL Phosphorus (2.5-4.5) mg/dL Magnesium (1.6-2.3) mg/dL Tacrolimus 1.8 L (5.0-20.0) ng/mL 08/02/23 08/02/23 08/02/23 Range/Units 04:08 04:08 04:11 WBC 24.4 H (3.8-10.6) k/uL RBC 2.78 L (4.30-5.90) m/uL Hgb 8.0 L (13.0-17.5) gm/dL Hct 25.4 L (39.0-53.0) % RDW 16.0 H (11.5-15.5) % ABG pCO2 (35-45) mmHg ABG HCO3 (21-25) mmol/L ABG O2 Saturation (94-97) % Sodium 132 L (137-145) mmol/L Carbon Dioxide 16 L (22-30) mmol/L BUN 166 H* (9-20) mg/dL Creatinine 6.01 H (0.66-1.25) mg/dL Glucose 122 H (74-99) mg/dL POC Glucose (mg/dL) 138 H (70-110) mg/dL Calcium 7.6 L (8.4-10.2) mg/dL Phosphorus 12.0 H* (2.5-4.5) mg/dL Magnesium 2.5 H (1.6-2.3) mg/dL Tacrolimus (5.0-20.0) ng/mL 08/02/23 08/02/23 Range/Units 04:52 08:51 WBC (3.8-10.6) k/uL RBC (4.30-5.90) m/uL Hgb (13.0-17.5) gm/dL Hct (39.0-53.0) % RDW (11.5-15.5) % ABG pCO2 34 L (35-45) mmHg ABG HCO3 19 L (21-25) mmol/L ABG O2 Saturation 97.1 H (94-97) % Sodium (137-145) mmol/L Carbon Dioxide (22-30) mmol/L BUN (9-20) mg/dL Creatinine (0.66-1.25) mg/dL Glucose (74-99) mg/dL POC Glucose (mg/dL) 170 H (70-110) mg/dL Calcium (8.4-10.2) mg/dL Phosphorus (2.5-4.5) mg/dL Magnesium (1.6-2.3) mg/dL Tacrolimus (5.0-20.0) ng/mL Assessment and Plan Plan: Assessment: 1. Status post liver and kidney transplant in 2015 performed at [facility]. 2. Acute kidney injury secondary to ATN secondary to cardiac arrest. Renal function worsening. Creatinine 6.01 today. Elevated BUN due to acute kidney injury, IV steroids as well as component of GI bleed. 3. Chronic kidney disease stage IIIa with baseline creatinine 1.4-1.6 secondary to solitary kidney and long-term CNI use. 4. Bradycardia with PEA arrest. Dopamine discontinued. 5. Acute left parietal and occipital CVA. 6. Multiple liver lesions noted concerning for malignancy. Biopsy results consistent with malignancy. 7. Hyponatremia secondary to acute kidney injury. Hypervolemic. Stable. 8. Hyperkalemia secondary to acute kidney injury, acidosis and Prograf. Better. 9. Metabolic acidosis secondary to acute kidney injury and IV fluids. On oral bicarb. 10. Hyperphosphatemia secondary to acute kidney injury. On PhosLo. Increase frequency to 3 times daily. Plan: Maintain IV Lasix. Maintain prednisone. Continue to hold CellCept. Prograf level 1.8 dated July 31, 2023. Prograf resumed July 30, 2023. Increase dose to 3 mg twice daily. Avoid nephrotoxins. Prognosis guarded. Continue to monitor renal function and urine output. Preserved EF noted on echo. Case discussed with oncology. Patient not a candidate for any aggressive treatment measures for the malignancy at this time. No plans for renal replacement therapy. Comfort measures pending.
[2023-08-02] MEDS: CALCIUM ACETATE 667 MG TAB PO SCH (12:14)
[2023-08-02 12:19] LABS: Glucose,Whole Blood 151 mg/dL (70-110)
--- NOTE | 2023-08-02 14:22 | P.PN ---
Subjective Progress Note Date: 08/02/23 CHIEF COMPLAINT: Shortness of breath HISTORY OF PRESENT ILLNESS: Patient remains in the ICU intubated and on mechanical ventilation. Surgical service following in regards to GI bleed. Patient has had only 1 bloody stool. Did not have any further bleeding throughout the day yesterday or today. Hemoglobin staying stable at 8. Cr 6.0 PHYSICAL EXAM: VITAL SIGNS: Reviewed GENERAL: no acute distress. CHEST: Non-labored respirations and equal bilateral excursions. CARDIOVASCULAR: Palpable 2+ radial pulses. ABDOMEN: Soft. Nondistended. Nontender. MUSCULOSKELETAL: No clubbing or cyanosis. NEUROLOGIC: intubated and sedated ASSESSMENT: 1. Acute GI bleed with bright red blood per rectum 2. Anemia 3. Cardiac arrest 4. Acute hypoxic respiratory failure secondary to cardiac arrest 5. Suspected underlying pancreatic malignancy with metastasis. Patient has liver lesions and pulmonary nodules and elevated CA 19-9 6. Acute on chronic kidney injury 7. CVA PLAN: -No plans for endoscopies at this time -Continue ICU management -Continue supportive care -Continue PPI -Family possibly proceeding with comfort care measures soon. Awaiting their final decision Physician Concrete Craftsman note has been reviewed by physician. Signing provider agrees with the documented findings, assessment, and plan of care. Objective - Vital Signs Vital signs: Vital Signs Temp 97.9 F 08/02/23 12:00 Pulse 78 08/02/23 13:00 Resp 20 08/02/23 13:00 BP 114/54 08/02/23 13:00 Pulse Ox 96 08/02/23 13:00 FiO2 35 08/02/23 13:00 Intake & Output 08/01/23 08/02/23 08/02/23 18:59 06:59 18:59 Intake Total 334.066 6300.453 540.498 Output Total 470 698 295 Balance -4.842 304.453 245.498 Weight 101.8 kg Intake: IV 226 346 209 0.9 120 40 Cefepime 1 gm In Sodium 100 100 100 Chloride 0.9% 50 ml @ 12. 5 mls/hr IVPB Q12HR [facility] Rx#:[id number] Invasive Line 2 90 90 60 pressure bag 36 36 9 Intake, IV Titration 89.158 95.453 85.498 Amount propofoL 1,000 mg In 89.158 95.453 85.498 Empty Bag 1 bag @ 15 MCG/ KG/MIN 8.784 mls/hr IV . [id number] [facility] Rx#:[id number] Tube Feeding 150 471 246 Other 90 Output: Urine 470 698 295 Other: Voiding Method Indwelling Catheter Indwelling Catheter Indwelling Catheter # Bowel Movements 1 ABP, PAP, CO, CI - Last Documented Arterial Blood Pressure 119/47 - Labs CBC & Chem 7: 08/02/23 04:08 08/02/23 04:08 Labs: Abnormal Lab Results - Last 24 Hours (Table) 07/31/23 08/02/23 08/02/23 Range/Units 04:46 00:15 04:08 WBC 24.4 H (3.8-10.6) k/uL RBC 2.78 L (4.30-5.90) m/uL Hgb 8.0 L (13.0-17.5) gm/dL Hct 25.4 L (39.0-53.0) % RDW 16.0 H (11.5-15.5) % ABG pCO2 (35-45) mmHg ABG HCO3 (21-25) mmol/L ABG O2 Saturation (94-97) % Sodium (137-145) mmol/L Carbon Dioxide (22-30) mmol/L BUN (9-20) mg/dL Creatinine (0.66-1.25) mg/dL Glucose (74-99) mg/dL POC Glucose (mg/dL) 117 H (70-110) mg/dL Calcium (8.4-10.2) mg/dL Phosphorus (2.5-4.5) mg/dL Magnesium (1.6-2.3) mg/dL Tacrolimus 1.8 L (5.0-20.0) ng/mL 08/02/23 08/02/23 08/02/23 Range/Units 04:08 04:11 04:52 WBC (3.8-10.6) k/uL RBC (4.30-5.90) m/uL Hgb (13.0-17.5) gm/dL Hct (39.0-53.0) % RDW (11.5-15.5) % ABG pCO2 34 L (35-45) mmHg ABG HCO3 19 L (21-25) mmol/L ABG O2 Saturation 97.1 H (94-97) % Sodium 132 L (137-145) mmol/L Carbon Dioxide 16 L (22-30) mmol/L BUN 166 H* (9-20) mg/dL Creatinine 6.01 H (0.66-1.25) mg/dL Glucose 122 H (74-99) mg/dL POC Glucose (mg/dL) 138 H (70-110) mg/dL Calcium 7.6 L (8.4-10.2) mg/dL Phosphorus 12.0 H* (2.5-4.5) mg/dL Magnesium 2.5 H (1.6-2.3) mg/dL Tacrolimus (5.0-20.0) ng/mL 08/02/23 08/02/23 Range/Units 08:51 12:17 WBC (3.8-10.6) k/uL RBC (4.30-5.90) m/uL Hgb (13.0-17.5) gm/dL Hct (39.0-53.0) % RDW (11.5-15.5) % ABG pCO2 (35-45) mmHg ABG HCO3 (21-25) mmol/L ABG O2 Saturation (94-97) % Sodium (137-145) mmol/L Carbon Dioxide (22-30) mmol/L BUN (9-20) mg/dL Creatinine (0.66-1.25) mg/dL Glucose (74-99) mg/dL POC Glucose (mg/dL) 170 H 151 H (70-110) mg/dL Calcium (8.4-10.2) mg/dL Phosphorus (2.5-4.5) mg/dL Magnesium (1.6-2.3) mg/dL Tacrolimus (5.0-20.0) ng/mL
[2023-08-02 15:59] LABS: Glucose,Whole Blood 156 mg/dL (70-110)
--- NOTE | 2023-08-02 16:06 | P.PN ---
Progress Note - Text Progress Note Date: 08/02/23 Dr. Branch was providing neurological care last week and refer to his notes for further details. Per the nurse, the family has made the patient comfort care. Please notify neurology team if any further concerns.
--- NOTE | 2023-08-02 16:18 | P.PN ---
Subjective Progress Note Date: 08/02/23 (delayed charting seen at approx 0930) Patient is a 59-year-old male with BPH, carotid stenosis, cirrhosis, diabetes, end-stage renal disease status post renal and liver transplant no longer requir ing hemodialysis, glaucoma, hypertension, and multiple other comorbid conditions who presented to the emergency department with complaints of shortness of breath. Patient had recently been at an outside hospital for abdominal and back pain they are workup revealed lesions in his liver, kidney, and lung and he was requiring Dilaudid [id number] for pain. He was discharged on a fentanyl patch with a PET scan scheduled for July with Dr. Wise. In the emergency department here he was noted to have a white blood cell count of 16, sodium 124, BUN 30, creatinine 1.76 (baseline creatinine 2), AST 241, ALT 153, alkaline phosphatase 669, and a D-dimer of 18.53. Patient was admitted with concerns for possible pulmonary embolism and he was started on Lovenox. He subsequently underwent a ventilation/perfusion scan which demonstrated low probability for pulmonary embolism. He underwent echocardiogram which demonstrated ejection fraction of 55 to 60% with mild aortic stenosis. Renal and bladder ultrasound demonstrated hepatic metastatic disease with transplanted kidneys and atrophic [place] kidneys. Oncology was consulted. They recommended continuing pain control considering additional imaging and IR consultation. Patient was noted to have change in mentation and therefore underwent a CT of the head which demonstrated no acute intracranial process. He then became hypoxic requiring high flow nasal cannula and ultimately BiPAP. Pulmonary was consulted and added bronchodilators. On the morning of 07/21 patient was undergoing a BiPAP weaning trial when he lost pulses and CPR was initiated. He had ROSC after 2 rounds of epinephrine however his mental status did not improve and he was subsequently intubated and transferred to the ICU. He required norepinephrine for less than 24 hours. Infectious disease was consulted he recommended adding cefepime while awaiting cultures to finalize. Nephrology was consulted who recommended holding CellCept and continuing tacrolimus and prednisone. His Tacro was then held. Patient became bradycardiac overnight on 07/24 and cardio was consulted and the patient was started on a dobutamine gtt. Patient developed seizures early on t he morning of 07/26/23 and was given Ativan from critical care with resolution of seizure-like activity. Neurology was consulted. CT brain was ordered and patient was loaded with Keppra. He underwent liver biopsy on 07/26/23. He continued to struggle with being obtunded despite discontinuation of pro pofol. He underwent repeat EEG which demonstrated seizure-like activity he was started on lacosamide in addition to the Keppra he had already been placed on. He underwent head CT which showed significant left-sided watershed territory stroke as well as frontal lobe territory stroke. His kidney function continued to decline and he had an additional drop in hemoglobin requiring 2 and 1 unit of packed red blood cells. On 07/29 family changed patient's CODE STATUS to DNR. They will be considering comfort care. Pathology demonstrated metastatic adenocarcinoma. Family is going to proceed with comfort. Patient seen and examined at bedside. Per nursing family likely to proceed with comfort measures on 08/04/2023. No acute events overnight. 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 -Pulmonary note reviewed: Comfort measures on Monday - Await further ID recs -Cefepime 2 g IV piggyback twice daily D # 12 -Hold Lipitor due to elevated liver enzymes -Fentanyl 75 mcg patch has been continued. -DuoNebs every 4 hours and as needed Seizures Right Frontal and Left parietal and occipital lobe likely represent watershed infarcts, discussed these findings with Neurology Acute encephalopathy, possible anoxic -Neurology signed off, comfort measure -Keppra 500 mg every 12 hours, lacosamide 100mg IV BID ARI on Chronic kidney disease stage III status post renal and liver transplant Hyponatremia, possible SIADH Metabolic acidosis Hyperkalemia, resolved -Lasix 80 mg IV push every 12 hours -Nephrology note reviewed: Maintain IV Lasix, case discussed with oncology and patient not a candidate for aggressive treatment measures for the malignancy at this time and therefore no plans for renal placement therapy. - Hold cell cept - Prednisone 40 mg daily - Tacro 3 mg BID -Continue to follow renal function -PhosLo 675 twice daily - Sodium bicarb 650 mg 3 times daily Bright red blood per rectum. resolved -Surgery note reviewed: No plans for endoscopy Episodes of complete heart block with unclear etiology NSTEMI- Type II - Off coreg -Cardiology following as needed - off coreg - no onger requiring dopamine - repeat echo with EF 65-60% Normocytic anemia -Follow CBC -No indication for transfusion at this time Diabetes mellitus type 2 with episodes of hypoglycemia - NovoLog fixed dose stopped with decreased BP - sliding scale every 4 hours - Levemir to 15 units once daily -Follow blood sugars Chronic conditions BPH Carotid stenosis Hepatitis C Hypertension Dyslipidemia Osteoarthritis Vitamin D deficiency Pulmonary embolism ruled out Poor over all prognosis Imaging: Chest x-ray as reviewed by myself shows increased pulmonary vascular congestion. Data Review: -Labs reviewed from today include CBC, ABG, basic metabolic profile, phosphorus, and magnesium which are remarkable for white blood cell count 24.4, hemoglobin 8, sodium 132, carbon dioxide 16, BUN 166, creatinine 6.01, phosphorus 12, magnesium 2.5 DVT prophylaxis: Lovenox Anticipated discharge date: Pending Clinical Course Anticipated discharge place: Pending Clinical Course This dictation was prepared using [employer] voice recognition software. Though every attempt is made to correct errors during dictation some may still exist. Objective - Vital Signs Vital signs: Vital Signs Temp 97.6 F 08/02/23 16:00 Pulse 89 08/02/23 16:00 Resp 24 08/02/23 16:00 BP 167/74 08/02/23 16:00 Pulse Ox 97 08/02/23 16:00 FiO2 35 08/02/23 16:00 Intake & Output 08/01/23 08/02/23 08/02/23 18:59 06:59 18:59 Intake Total 060.630 7781.453 734.498 Output Total 470 698 482 Balance -4.842 304.453 252.498 Weight 101.8 kg Intake: IV 226 346 239 0.9 120 40 Cefepime 1 gm In Sodium 100 100 100 Chloride 0.9% 50 ml @ 12. 5 mls/hr IVPB Q12HR [facility] Rx#:[id number] Invasive Line 2 90 90 90 pressure bag 36 36 9 Intake, IV Titration 89.158 95.453 85.498 Amount propofoL 1,000 mg In 89.158 95.453 85.498 Empty Bag 1 bag @ 15 MCG/ KG/MIN 8.784 mls/hr IV . [id number] [facility] Rx#:[id number] Tube Feeding 150 471 410 Other 90 Output: Urine 470 698 482 Other: Voiding Method Indwelling Catheter Indwelling Catheter Indwelling Catheter # Bowel Movements 1 ABP, PAP, CO, CI - Last Documented Arterial Blood Pressure 167/66 - Labs CBC & Chem 7: 08/02/23 04:08 08/02/23 04:08 Labs: Abnormal Lab Results - Last 24 Hours (Table) 08/02/23 08/02/23 08/02/23 Range/Units 00:15 04:08 04:08 WBC 24.4 H (3.8-10.6) k/uL RBC 2.78 L (4.30-5.90) m/uL Hgb 8.0 L (13.0-17.5) gm/dL Hct 25.4 L (39.0-53.0) % RDW 16.0 H (11.5-15.5) % ABG pCO2 (35-45) mmHg ABG HCO3 (21-25) mmol/L ABG O2 Saturation (94-97) % Sodium 132 L (137-145) mmol/L Carbon Dioxide 16 L (22-30) mmol/L BUN 166 H* (9-20) mg/dL Creatinine 6.01 H (0.66-1.25) mg/dL Glucose 122 H (74-99) mg/dL POC Glucose (mg/dL) 117 H (70-110) mg/dL Calcium 7.6 L (8.4-10.2) mg/dL Phosphorus 12.0 H* (2.5-4.5) mg/dL Magnesium 2.5 H (1.6-2.3) mg/dL 08/02/23 08/02/23 08/02/23 Range/Units 04:11 04:52 08:51 WBC (3.8-10.6) k/uL RBC (4.30-5.90) m/uL Hgb (13.0-17.5) gm/dL Hct (39.0-53.0) % RDW (11.5-15.5) % ABG pCO2 34 L (35-45) mmHg ABG HCO3 19 L (21-25) mmol/L ABG O2 Saturation 97.1 H (94-97) % Sodium (137-145) mmol/L Carbon Dioxide (22-30) mmol/L BUN (9-20) mg/dL Creatinine (0.66-1.25) mg/dL Glucose (74-99) mg/dL POC Glucose (mg/dL) 138 H 170 H (70-110) mg/dL Calcium (8.4-10.2) mg/dL Phosphorus (2.5-4.5) mg/dL Magnesium (1.6-2.3) mg/dL 08/02/23 08/02/23 Range/Units 12:17 15:58 WBC (3.8-10.6) k/uL RBC (4.30-5.90) m/uL Hgb (13.0-17.5) gm/dL Hct (39.0-53.0) % RDW (11.5-15.5) % ABG pCO2 (35-45) mmHg ABG HCO3 (21-25) mmol/L ABG O2 Saturation (94-97) % Sodium (137-145) mmol/L Carbon Dioxide (22-30) mmol/L BUN (9-20) mg/dL Creatinine (0.66-1.25) mg/dL Glucose (74-99) mg/dL POC Glucose (mg/dL) 151 H 156 H (70-110) mg/dL Calcium (8.4-10.2) mg/dL Phosphorus (2.5-4.5) mg/dL Magnesium (1.6-2.3) mg/dL
[2023-08-02 16:42] VITALS: TEMP 97.6
[2023-08-02] MEDS ORDERED: ACETAMINOPHEN SUPPOSITORY 650 MG SUPP RECTAL PRN (18:31)
[2023-08-02] MEDS ORDERED: HYDROmorphone 1 MG/ML 1 ML SYRINGE IVP PRN (18:31)
[2023-08-02 19:20] VITALS: BP 141/65; PULSE 87; RESP 22
[2023-08-02] MEDS: MORPHINE SULFATE (100 MG/2 ML) 100 MG in SODIUM CHLORIDE 0.9% 100 ML IV SCH (20:41)
[2023-08-02] MEDS: SCOPOLAMINE 1 MG/72 HR PATCH TRANSDERM SCH (20:43)
[2023-08-02] MEDS: MORPHINE SULFATE 4 MG/ML SYRINGE IV PRN (21:08)
[2023-08-02] MEDS: LORazepam 1 MG/0.5 ML VIAL IV PRN (21:10)
[2023-08-02] MEDS: ATROPINE OPHTH SOLN 1% 5ML BTL SUBLINGUAL PRN (22:32)
[2023-08-03] MEDS: TACROLIMUS 1 MG CAP PO SCH (00:33)
[2023-08-03] MEDS ORDERED: ENOXAPARIN 30 MG/0.3 ML SYRINGE SQ SCH (09:00)
--- NOTE | 2023-08-03 15:16 | P.PN ---
Subjective Progress Note Date: 08/02/23 Patient remains sedated on the vent. He he has clinical, generalized fluid overload. No obvious bleeding. Objective - Vital Signs Vital signs: Vital Signs Temp 97.6 F 08/02/23 16:00 Pulse 87 08/02/23 19:00 Resp 22 08/02/23 19:00 BP 141/65 08/02/23 19:00 Pulse Ox 98 08/02/23 19:00 FiO2 35 08/02/23 16:00 Intake & Output 08/02/23 08/03/23 08/03/23 18:59 06:59 18:59 Intake Total 916.050 412.279 Output Total 637 470 Balance 279.050 -57.721 Intake: IV 239 0.9 40 Cefepime 1 gm In Sodium 100 Chloride 0.9% 50 ml @ 12. 5 mls/hr IVPB Q12HR [facility] Rx#:[id number] Invasive Line 2 90 pressure bag 9 Intake, IV Titration 185.050 371.279 Amount Morphine Sulfate (100 mg/ 291.686 2 ml) 100 mg In Sodium Chloride 0.9% 100 ml @ 1 MG/HR 1.02 mls/hr IV . Q24H [facility] Rx#:[id number] propofoL 1,000 mg In 185.050 79.593 Empty Bag 1 bag @ 15 MCG/ KG/MIN 8.784 mls/hr IV . [id number] [facility] Rx#:[id number] Tube Feeding 492 41 Output: Urine 637 470 Other: Voiding Method Indwelling Catheter Indwelling Catheter ABP, PAP, CO, CI - Last Documented Arterial Blood Pressure 140/55 - Constitutional Constitutional Comment(s): Sedated, on vent General appearance: Present: no acute distress - EENT Eyes: Present: PERRLA - Respiratory Respiratory: bilateral: diminished - Cardiovascular Rhythm: regular Heart sounds: normal: S1, S2 - Gastrointestinal General gastrointestinal: Present: decreased bowel sounds, soft - Integumentary Integumentary: Present: normal - Neurologic Neurologic Comment(s): Sedated, on ventilator - Musculoskeletal Musculoskeletal: Present: generalized weakness - Psychiatric Psychiatric Comment(s): Sedated, on ventilator - Labs CBC & Chem 7: 08/02/23 04:08 08/02/23 04:08 Labs: Abnormal Lab Results - Last 24 Hours (Table) 08/02/23 Range/Units 15:58 POC Glucose (mg/dL) 156 H (70-110) mg/dL Assessment and Plan (1) Metastatic adenocarcinoma Narrative/Plan: The patient remains sedated, on the ventilator. There has not been any significant improvement in his underlying conditions, including progressive renal insufficiency, [employer] injury, and respiratory failure. Family were not available at the bedside today. As noted in my discussion with nephrology yesterday, it is not felt that initiation of hemodialysis is likely to significantly improve his performance status to where he would become a candidate for further workup and treatment of his underlying malignancy. Given that and his other ongoing issues, Which themselves have poor prognosis, even in the absence of an underlying metastatic malignancy, it appears to be very unlikely that the patient would become a candidate for cancer treatment. In addition his malignancy is not curable. - Therefore it is reiterated, that from the oncology standpoint pursuing comfort care is very appropriate. This has been discussed in detail with the family previously, as soon as the preliminary report on his biopsy became available. Status: Acute Code(s): C79.9 - SECONDARY MALIGNANT NEOPLASM OF UNSPECIFIED SITE SNOMED Code(s): 562392299817337
--- NOTE | 2023-08-03 20:22 | P.DS ---
Providers Date of admission: 07/19/23 15:31 Expected date of discharge: 08/03/23 Attending physician: Yessenia Sosa DO Consults: 07/19/23 15:35 Consult Physician Urgent Consulting Provider: Lana Wise Consult Reason/Comments: Possible metastatic disease Do you want consulting provider notified?: Yes 07/21/23 14:25 Consult Physician Stat Consulting Provider: Sanya Santillan Consult Reason/Comments: Acute hypoxic respiratory failure, pulmonary mets Do you want consulting provider notified?: Yes 07/22/23 08:02 Consult Physician Stat Consulting Provider: Lorne Forrest Consult Reason/Comments: sepsis Do you want consulting provider notified?: Yes 07/22/23 09:34 Consult Physician Urgent Consulting Provider: Norma Steel Consult Reason/Comments: kidney transplant Do you want consulting provider notified?: Yes 07/26/23 09:09 Consult Physician Stat Consulting Provider: John Santillan Consult Reason/Comments: post cardiac arrest Do you want consulting provider notified?: Yes 08/01/23 01:27 Consult Physician Stat Consulting Provider: Nazanin Hernandez Consult Reason/Comments: GI Bleed Do you want consulting provider notified?: Already Contacted 08/01/23 08:54 Consult Physician Stat Consulting Provider: Perez Masterson Consult Reason/Comments: temporary dialysis catheter Do you want consulting provider notified?: Yes Primary care physician: [facility] Hospital Course: Discharge Diagnosis: S/P Cardiac arrest Multiple lung and liver nodules due to 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 resolved Episodes of complete heart block with unclear etiology NSTEMI- Type II Normocytic anemia Diabetes mellitus type 2 with episodes of hypoglycemia Chronic conditions BPH Carotid stenosis Hepatitis C Hypertension Dyslipidemia Osteoarthritis Vitamin D deficiency Hospital Course: Patient is a 59-year-old male with BPH, carotid stenosis, cirrhosis, diabetes, end-stage renal disease status post renal and liver transplant no longer requiring hemodialysis, glaucoma, hypertension, and multiple other comorbid conditions who presented to the emergency department with complaints of shortness of breath. Patient had recently been at an outside hospital for abdominal and back pain they are workup revealed lesions in his liver, kidney, and lung and he was requiring Dilaudid [id number] for pain. He was di scharged on a fentanyl patch with a PET scan scheduled for July with Dr. Wise. In the emergency department here he was noted to have a white blood cell count of 16, sodium 124, BUN 30, creatinine 1.76 (baseline creatinine 2), AST 241, ALT 153, alkaline phosphatase 669, and a D-dimer of 18.53. Patient was admitted with concerns for possible pulmonary embolism and he was started on Lovenox. He subsequently underwent a ventilation/perfusion scan which demonstrated low probability for pulmonary embolism. He underwent echocardiogram which demonstrated ejection fraction of 55 to 60% with mild aortic stenosis. Renal and bladder ultrasound demonstrated hepatic metastatic disease with transplanted kidneys and atrophic [place] kidneys. Oncology was consulted. They recommended continuing pain control considering additional imaging and IR consultation. Patient was noted to have change in mentation and therefore underwent a CT of the head which demonstrated no acute intracranial process. He then became hypoxic requiring high flow nasal cannula and ultimately BiPAP. Pulmonary was consulted and added bronchodilators. On the morning of 07/21 patient was undergoing a BiPAP weaning trial when he lost pulses and CPR was initiated. He had ROSC after 2 rounds of epinephrine however his mental status did not improve and he was subsequently intubated and transferred to the ICU. He required norepinephrine for less than 24 hours. Infectious disease was consulted he recommended adding cefepime while awaiting cultures to finalize. Nephrology was consulted who recommended holding CellCept and continuing tacrolimus and prednisone. His Tacro was then held. Patient became bradycardiac overnight on 07/24 and cardio was consulted and the patient was started on a dobutamine gtt. Patient developed seizures early on the morning of 07/26/23 and was given Ativan from critical care with resolution of seizure-like activity. Neurology was consulted. CT brain was ordered and patient was loaded with Keppra. He underwent liver biopsy on 07/26/23. He continued to struggle with being obtunded despite discontinuation of propofol. He underwent repeat EEG which demonstrated seizure-like activity he was started on lacosamide in addition to the Keppra he had already been placed on. He underwent head CT which showed significant left-sided watershed territory stroke as well as frontal lobe territory stroke. His kidney function continued to decline and he had an additional drop in hemoglobin requiring 2 and 1 unit of packed red blood cells. On 07/29 family changed patient's CODE STATUS to DNR. They will be considering comfort care. Pathology demonstrated metastatic adenocarcinoma. Family physician the patient comfort care on 08/02/2023. Patient passed peacefully with family present at bedside on 08/03/2039 Patient on 08/03/2023 This dictation was prepared using [employer] voice recognition software. Though every attempt is made to correct errors during dictation some may still exist. Patient Condition at Discharge: Stable Plan - Discharge Summary New Discharge Prescriptions: No Action ursodioL [Ursodiol] 300 mg PO TID lamiVUDine [Epivir] 100 mg PO QAM carvediloL [Coreg] 6.25 mg PO BID Latanoprost [Latanoprost 0.005%] 1 drop BOTH EYES HS INSULIN ASPART (NovoLOG) [NovoLOG (formulary)] See Protocol SQ AC-TID Insulin Glargine,Hum.rec.anlog [Lantus Solostar Pen] 20 units SQ HS Tacrolimus [Prograf] 3 mg PO DAILY Rosuvastatin Calcium 5 mg PO DAILY hydrALAZINE HCL 75 mg PO TID Aspirin EC [Ecotrin Low Dose] 81 mg PO DAILY Magnesium Oxide [Mag-Ox] 400 mg PO DAILY predniSONE 2 mg PO QAM mycophenolate mofetiL [Cellcept] 250 mg PO BID Omeprazole 20 mg PO QAM NIFEdipine [Adalat CC] 60 mg PO BID allopurinoL 100 mg PO QAM Prevagen Memory Supplement 1 dose PO DAILY Tacrolimus [Prograf] 2 mg PO HS Melatonin 6 mg PO HS Cholecalciferol [Vitamin D3 (10 Mcg = 400 Iu)] 10 mcg PO DAILY Calcium Carbonate/Vitamin D3 [Calcium 500 mg-Vit D3 5 mcg (200 Unit)] 1 tab PO BID Sennosides/Docusate Sodium [Senna Plus 8.6-50 mg Tablet] 1 tab PO BID HYDROcodone/APAP 10-325MG [[place] 10-325] 1 tab PO Q6H PRN PRN Reason: Pain Lactulose [Constulose] 20 gm PO BID PRN PRN Reason: Constipation fentaNYL 25MCG/HR PATCH [Duragesic 25MCG/HR] 1 patch TRANSDERM Q72H Timolol Maleate/Pf [Timoptic 0.25% Ocudose] 1 drop BOTH EYES BID Discharge Medication List INSULIN ASPART (NovoLOG) [NovoLOG (formulary)] See Protocol SQ AC-TID 04/21/22 [History] Latanoprost [Latanoprost 0.005%] 1 drop BOTH EYES HS 04/21/22 [History] NIFEdipine [Adalat CC] 60 mg PO BID 04/21/22 [History] Omeprazole 20 mg PO QAM 04/21/22 [History] carvediloL [Coreg] 6.25 mg PO BID 04/21/22 [History] lamiVUDine [Epivir] 100 mg PO QAM 04/21/22 [History] mycophenolate mofetiL [Cellcept] 250 mg PO BID 04/21/22 [History] predniSONE 2 mg PO QAM 04/21/22 [History] ursodioL [Ursodiol] 300 mg PO TID 04/21/22 [History] Insulin Glargine,Hum.rec.anlog [Lantus Solostar Pen] 20 units SQ HS 03/29/23 [History] allopurinoL 100 mg PO QAM 03/29/23 [History] Prevagen Memory Supplement 1 dose PO DAILY 05/25/23 [History] Aspirin EC [Ecotrin Low Dose] 81 mg PO DAILY 07/19/23 [History] Calcium Carbonate/Vitamin D3 [Calcium 500 mg-Vit D3 5 mcg (200 Unit)] 1 tab PO BID 07/19/23 [History] Cholecalciferol [Vitamin D3 (10 Mcg = 400 Iu)] 10 mcg PO DAILY 07/19/23 [History] HYDROcodone/APAP 10-325MG [[place] 10-325] 1 tab PO Q6H PRN 07/19/23 [History] Lactulose [Constulose] 20 gm PO BID PRN 07/19/23 [History] Magnesium Oxide [Mag-Ox] 400 mg PO DAILY 07/19/23 [History] Melatonin 6 mg PO HS 07/19/23 [History] Rosuvastatin Calcium 5 mg PO DAILY 07/19/23 [History] Sennosides/Docusate Sodium [Senna Plus 8.6-50 mg Tablet] 1 tab PO BID 07/19/23 [History] Tacrolimus [Prograf] 2 mg PO HS 07/19/23 [History] Tacrolimus [Prograf] 3 mg PO DAILY 07/19/23 [History] Timolol Maleate/Pf [Timoptic 0.25% Ocudose] 1 drop BOTH EYES BID 07/19/23 [History] fentaNYL 25MCG/HR PATCH [Duragesic 25MCG/HR] 1 patch TRANSDERM Q72H 07/19/23 [History] hydrALAZINE HCL 75 mg PO TID 07/19/23 [History] Follow up Appointment(s)/Referral(s): [facility],Clinic [Primary Care Provider] - 1-2 days Discharge Disposition: - Preliminary Cause of Preliminary Cause of : metastatic adenocarcinoma
== END 2023-08-03 11:07 | disposition expired | DRG 870 ==
LOC: EC 13:07 → 5NMEDONC 15:31 → 2CATHESU 22:38 → 3SCARD 22:47 → 5NMEDONC 07-20 10:28 → 3SCARD 07-21 15:34 → 2SICU 07-22 06:04
PROVIDERS: ADMIT Internal Medicine; ATTEND Internal Medicine
PROC: 5A09357 Assistance with Respiratory Ventilation, Less than 24 Consecutive Hours, Continuous Positive Airway Pressure (ICD-10-PCS; 2023-07-21)
PROC: 3E033XZ Introduction of Vasopressor into Peripheral Vein, Percutaneous Approach (ICD-10-PCS; principal; 2023-07-22)
PROC: 5A1955Z Respiratory Ventilation, Greater than 96 Consecutive Hours (ICD-10-PCS; 2023-07-22)
PROC: 0BH18EZ Insertion of Endotracheal Airway into Trachea, Via Natural or Artificial Opening Endoscopic (ICD-10-PCS; 2023-07-22)
PROC: 5A12012 Performance of Cardiac Output, Single, Manual (ICD-10-PCS; 2023-07-22)
PROC: 04HY32Z Insertion of Monitoring Device into Lower Artery, Percutaneous Approach (ICD-10-PCS; 2023-07-22)
PROC: 4A133B1 Monitoring of Arterial Pressure, Peripheral, Percutaneous Approach (ICD-10-PCS; 2023-07-22)
PROC: 4A133J1 Monitoring of Arterial Pulse, Peripheral, Percutaneous Approach (ICD-10-PCS; 2023-07-22)
PROC: 02HV33Z Insertion of Infusion Device into Superior Vena Cava, Percutaneous Approach (ICD-10-PCS; 2023-07-22)
PROC: 0FB23ZX Excision of Left Lobe Liver, Percutaneous Approach, Diagnostic (ICD-10-PCS; 2023-07-26)
PROC: 30233N1 Transfusion of Nonautologous Red Blood Cells into Peripheral Vein, Percutaneous Approach (ICD-10-PCS; 2023-07-29)
DX: A41.9 Sepsis, unspecified organism (principal); J96.01 Acute respiratory failure with hypoxia; I63.511 Cerebral infarction due to unspecified occlusion or stenosis of right middle cerebral artery; N17.0 Acute kidney failure with tubular necrosis; R65.21 Severe sepsis with septic shock; G93.41 Metabolic encephalopathy; I21.A1 Myocardial infarction type 2; I44.2 Atrioventricular block, complete; E22.2 Syndrome of inappropriate secretion of antidiuretic hormone; G93.1 Anoxic brain damage, not elsewhere classified; Z94.4 Liver transplant status; C34.32 Malignant neoplasm of lower lobe, left bronchus or lung; C78.7 Secondary malignant neoplasm of liver and intrahepatic bile duct; Z94.0 Kidney transplant status; J91.8 Pleural effusion in other conditions classified elsewhere; T86.19 Other complication of kidney transplant; E87.20 Acidosis, unspecified; R18.8 Other ascites; D62 Acute posthemorrhagic anemia; K92.1 Melena; Z66 Do not resuscitate; Z51.5 Encounter for palliative care; I46.9 Cardiac arrest, cause unspecified; Z79.4 Long term (current) use of insulin; G40.901 Epilepsy, unspecified, not intractable, with status epilepticus; E11.649 Type 2 diabetes mellitus with hypoglycemia without coma; E11.22 Type 2 diabetes mellitus with diabetic chronic kidney disease; E11.51 Type 2 diabetes mellitus with diabetic peripheral angiopathy without gangrene; K74.60 Unspecified cirrhosis of liver; E11.65 Type 2 diabetes mellitus with hyperglycemia; N18.30 Chronic kidney disease, stage 3 unspecified; F10.21 Alcohol dependence, in remission; F11.21 Opioid dependence, in remission; Z79.891 Long term (current) use of opiate analgesic; I12.9 Hypertensive chronic kidney disease with stage 1 through stage 4 chronic kidney disease, or unspecified chronic kidney disease; D63.1 Anemia in chronic kidney disease; I65.29 Occlusion and stenosis of unspecified carotid artery; I35.0 Nonrheumatic aortic (valve) stenosis; K83.8 Other specified diseases of biliary tract; E78.5 Hyperlipidemia, unspecified; E86.0 Dehydration; B19.20 Unspecified viral hepatitis C without hepatic coma; M19.90 Unspecified osteoarthritis, unspecified site; R00.1 Bradycardia, unspecified; K21.9 Gastro-esophageal reflux disease without esophagitis; M10.9 Gout, unspecified; E87.5 Hyperkalemia; N40.0 Benign prostatic hyperplasia without lower urinary tract symptoms; E55.9 Vitamin D deficiency, unspecified; E87.70 Fluid overload, unspecified; E86.1 Hypovolemia; R47.81 Slurred speech; M54.50 Low back pain, unspecified; G89.3 Neoplasm related pain (acute) (chronic); R97.0 Elevated carcinoembryonic antigen [CEA]; N48.89 Other specified disorders of penis; Z95.820 Peripheral vascular angioplasty status with implants and grafts; Z87.891 Personal history of nicotine dependence; Z11.52 Encounter for screening for COVID-19; Z79.899 Other long term (current) drug therapy; Z79.624 Long term (current) use of inhibitors of nucleotide synthesis; Z79.82 Long term (current) use of aspirin; Z86.73 Personal history of transient ischemic attack (TIA), and cerebral infarction without residual deficits; Z88.0 Allergy status to penicillin; Z88.5 Allergy status to narcotic agent; Z88.6 Allergy status to analgesic agent; Z88.8 Allergy status to other drugs, medicaments and biological substances; Z79.52 Long term (current) use of systemic steroids
CPT/HCPCS: 36415; 36600; 47000; 70450; 71045; 71046; 74176; 76705; 76770; 76942; 78580; 80048; 80053; 80197; 81001; 82140; 82272; 82378; 82805; 83036; 83605; 83735; 83880; 83930; 83935; 84100; 84132; 84145; 84450; 84460; 84484; 85025; 85027; 85379; 85610; 85730; 86301; 86403; 86480; 86606; 86612; 86635; 86698; 86850; 86900; 86901; 86920; 87040; 87070; 87205; 87305; 87449; 87636; 88307; 88341; 88342; 92950; 93005; 93306; 93308; 94002; 94003; 94640; 94660; 95813; 95822; 96361; 96372; 96374; 96375; 96376; 99285